=== PATIENT | male | born 1935 | race Caucasian/White ===

== ENCOUNTER 2016-11-30 00:14 | Inpatient (IN) | payer MEDICARE, OTHER ==
[~2016-11-30] VITALS: Ht 170.2 cm; Wt 57.5 kg
[2016-11-30] VITALS (25 sets, daily range): BP systolic 100–115; BP diastolic 46–63; PULSE 75–95; RESP 16–19; TEMP 98.4; Ht 170.2 cm; Wt 57.5 kg
--- NOTE | 2016-11-30 00:30 | ERA ---
ER Documentation Chief Complaint Date/Time DATE: 11/30/16 TIME: 00:30 Chief Complaint Palpitation and low hemoglobin HPI The patient is 81-year-old male, presenting to the ER because of palpitation at 7 PM. I obtained a history from the daughter because he is unable to provide any history. He also had low hemoglobin from the blood drawn today. The history is obtained from [facility], [facility] notes, patient and daughter Past medical history: Chronic respiratory failure on ventilator, hypertension, COPD, chronic kidney disease, BPH, CAD, dementia, dysphagia, anemia, history of CVA, GERD past surgical history: Tracheostomy, G-tube ROS All systems reviewed and are negative except as per history of present illness. Allergies Allergies: Coded Allergies: No Known Allergy (Unverified , 11/30/16) Physical Exam Vitals Vital Signs Date Time Temp Pulse Resp B/P Pulse Ox O2 Delivery O2 Flow Rate FiO2 11/30/16 03:42 136 22 100 40 11/30/16 03:30 127 19 104/42 100 Mechanical Ventilator T Tube Trach Collar 11/30/16 03:00 122 19 108/46 100 Mechanical Ventilator T Tube Trach Collar 11/30/16 02:30 121 20 103/43 100 Mechanical Ventilator T Tube Trach Collar 11/30/16 02:00 130 24 122/65 100 Mechanical Ventilator T Tube Trach Collar 11/30/16 01:17 160 20 100 100 11/30/16 01:00 165 23 137/74 100 Mechanical Ventilator T Tube Trach Collar 11/30/16 00:38 99.1 163 18 94/51 100 Physical Exam Const: No acute distress. On ventilator Head: Atraumatic. Eyes: Normal Conjunctiva. ENT: Normal External Ears, Nose and Mouth. Neck: Full range of motion. No meningismus. Resp: Clear to auscultation bilaterally. Cardio: Regular but tachycardic Abd: Soft, non distended, normal bowel sounds, non tender. Skin: No petechiae or rashes. Back: No midline or flank tenderness. Ext: No cyanosis, or edema. Neur: Unable to perform due to his condition Psych: Unable to perform due to his condition Result Diagram: 11/30/16 0045 11/30/16 0045 Results 24 hrs Laboratory Tests Test 11/30/16 00:45 11/30/16 01:45 11/30/16 02:13 11/30/16 02:35 White Blood Count 20.010^3/ul Red Blood Count 2.2710^6/ul Hemoglobin 6.3g/dl Hematocrit 20.4% Mean Corpuscular Volume 89.9fl Mean Corpuscular Hemoglobin 27.8pg Mean Corpuscular Hemoglobin Concent 30.9g/dl Red Cell Distribution Width 15.8% Platelet Count 39688^3/UL Mean Platelet Volume 10.0fl Neutrophils % 89.6% Lymphocytes % 4.9% Monocytes % 3.6% Eosinophils % 1.0% Basophils % 0.1% Nucleated Red Blood Cells % 0.0/100WBC Neutrophils # 17.910^3/ul Lymphocytes # 1.010^3/ul Monocytes # 0.710^3/ul Eosinophils # 0.210^3/ul Basophils # 0.010^3/ul Nucleated Red Blood Cells # 0.010^3/ul Prothrombin Time 14.5Sec Prothrombin Time Ratio 1.1 INR International Normalized Ratio 1.13 Activated Partial Thromboplast Time 31.8Sec Sodium Level 124mmol/L Potassium Level 5.1mmol/L Chloride Level 83mmol/L Carbon Dioxide Level 36mmol/L Anion Gap 10 Blood Urea Nitrogen 58mg/dl Creatinine 0.56mg/dl Glucose Level 121mg/dl Calcium Level 9.1mg/dl Magnesium Level 1.7mg/dl Total Bilirubin 0.0mg/dl Direct Bilirubin 0.00mg/dl Indirect Bilirubin 0.0mg/dl Aspartate Amino Transf (AST/SGOT) 90IU/L Alanine Aminotransferase (ALT/SGPT) 70IU/L Alkaline Phosphatase 237IU/L Troponin I 0.169ng/ml Total Protein 7.3g/dl Albumin 2.5g/dl Globulin 4.80g/dl Albumin/Globulin Ratio 0.52 Blood Gas Specimen Source Blood arterial Arterial Blood Date Drawn 11/30/2016 1:50:37 AM Arterial Blood pH (Temp corrected) 7.474 Arterial Blood pCO2 (Temp correct) 49.7mmhg Arterial Blood pO2 (Temp corrected) 300.7mmHG Arterial Blood HCO3 35.7mmol/L Arterial Blood Base Excess 11.0mmol/L Arterial Blood Oxygen Saturation 99.8mmHG Russell Test ACCEPTAB Arterial Blood Gas Puncture Site Left Radial Arterial Blood Carboxyhemoglobin 0.5% Arterial Blood Methemoglobin 0.6% Blood Gas A-a O2 Differential 362.6mmHg Oxyhemoglobin Percent 98.7% Total Hemoglobin 6.5g/dl Blood Gas Temperature 37.0C Blood Gas Respiration Rate 18.0 Blood Gas Actual Respiration Rate 20 Blood Gas Modality VENT - AC FiO2 100.0% Blood Gas Tidal Volume 550.0mL Blood Gas Low PEEP Setting 5.0cmH2O Blood Gas Critical Value Read Back ALAINA COON Blood Gas Notified Whom LW Blood Gas Notified Time 11/30/2016 1:55:41 AM Lactic Acid Level 1.8mmol/L Urine Color LT. YELLOW Urine Clarity CLEAR Urine pH 7.0 Bedside Urine pH (LAB) 7.0 Urine Specific [place] <=1.005 Bedside Urine Protein (LAB) 1+ Bedside Urine Glucose (UA) Negative Urine Ketones NEGATIVE Bedside Urine Ketones (LAB) Negative Bedside Urine Blood 1+ Urine Nitrite NEGATIVE Bedside Urine Nitrite (LAB) Negative Urine Bilirubin NEGATIVE Urine Urobilinogen 0.2 E.U./dL Urine Leukocyte Esterase NEGATIVE Bedside Urine Leukocyte Esterase (L Negative Urine Microscopic RBC 2-5/HPF Urine Microscopic WBC 2-5/HPF Urine Bacteria RARE Urine Hemoglobin 1+ Urine Glucose NEGATIVE% Urine Total Protein TRACE Current Medications Medications (Trade) Dose Ordered Sig/[place] Route PRN Reason Start Time Stop Time Status Last Admin Dose Admin Adenosine (Adenosine) 6 ml @ ud STK-MED ONCE .ROUTE 11/30/16 01:28 11/30/16 01:29 DC Diltiazem HCl 25 mg 25 mg STK-MED ONCE .ROUTE 11/30/16 01:35 11/30/16 01:36 DC Sodium Chloride (NS) 1,000 ml @ 1,000 mls/hr Q1H ONCE IV 11/30/16 02:00 11/30/16 02:59 DC Diltiazem HCl 25 mg 25 mg STK-MED ONCE .ROUTE 11/30/16 02:14 11/30/16 02:15 DC Diltiazem HCl 125 ml @ 5 mls/hr TITRATE IV 11/30/16 03:30 11/30/16 03:12 Vancomycin HCl 250 ml @ 125 mls/hr ONCE IVPB 11/30/16 03:30 11/30/16 05:29 11/30/16 04:01 Piperacillin Sod/ Tazobactam Sod (Zosyn 2.25gm/ 50ml (Pmx)) 50 ml @ 100 mls/hr ONCE ONCE IVPB 11/30/16 03:30 11/30/16 03:59 DC 11/30/16 03:38 Procedures/MDM [place] [id number] Radiology Main Line: [phone] DIAGNOSTIC IMAGING REPORT Patient: OBDULIO FIELDS : 1935 Age: 81 Sex: M MR #: [id number] DOS: 11/30/16 0117 Ordering MD: PASQUALE JAVIER MD Location: E/R Room/Bed: PROCEDURE: XR Chest. CLINICAL INDICATION: Possible Sepsis TECHNIQUE: Portable single view of the chest COMPARISON: None. FINDINGS: Endotracheal tube appears in good position. Cardiomegaly and aortic calcification. Pulmonary vascular congestion and coarse increased interstitial lung markings with possible bronchiectasis bilaterally. Large areas of alveolar opacity are seen in the right mid to lower lung zone with probable bilateral pleural effusions. Degenerative change of the spine. Minimal patchy opacities are seen peripherally in the left lung. IMPRESSION: Right greater than left lung infiltrates which could be due to pneumonia. Small effusions. Tracheostomy tube. Cardiomegaly and aortic calcification. Question underlying interstitial lung disease. RPTAT: HLBE Physician Dee Date Time Electronically viewed and signed by Renay Bailey Physician on 11/30/2016 03 :05 LE/ CC: PASQUALE JAVIER MD EKG: Read by emergency physician at 1:22 AM Rate/Rhythm: SVT 170 beats/min QRS, ST, T-waves: No ST elevation, no T inversion, nonspecific ST abnormality Impression: Abnormal EKG EKG: Read by emergency physician at 3:47 AM Rate/Rhythm: Atrial flutter with variable AV block beats/min QRS, ST, T-waves: No ST elevation, no T inversion, RWA, nonspecific ST abnormality Impression: Abnormal EKG MEDICAL MAKING DECISION: The patient is a 81-year-old male, presenting with new onset acute SVT, new onset acute atrial flutter, acute pneumonia, acute GI bleed , acute elevated troponin of unclear significance. He was treated with Cherry catheter, 1 L normal saline and 2 units of packed red blood cell for acute GI bleed. He was treated for acute SVT with adenosine 6 mg IV, and 12 mg IV with minimal response. He then went into atrial flutter with RVR; was then treated with Cardizem 20 mg IV 2 with some response and started on Cardizem drip with good response. He was treated with vancomycin IV , Zosyn IV for acute pneumonia, suspected aspiration. Aspirin was not given due to acute GI bleed The differential diagnoses for acute GI bleed considered include but are not limited to gastritis, peptic ulcer disease, esophageal varices, Sarah-Mcdaniels tear, carcinoma, polyp, hemorrhoid, fissure, diverticulosis, angiodysplasia. The differential diagnoses for acute elevated troponin considered include but are not limited to acute coronary syndrome, acute myocardial infarction, pericarditis, pulmonary embolism, aortic dissection, pneumonia, pleural effusion , pneumothorax, GERD, chest wall pain. Critical Care: Time: 75 minutes excluding all billable procedures. Treatments/Evaluations: Close monitoring and treatment of unstable vital signs, cardiorespiratory, and neurologic status, while maintaining tight balance of fluid, respiratory, and cardiac interventions. Departure Diagnosis: Primary Impression: Atrial flutter with rapid ventricular response Additional Impressions: SVT (supraventricular tachycardia) Pneumonia GI bleed Elevated troponin Hyponatremia Condition: Critical Comments I discussed the findings with the patient. I discussed the patient with his physician who was made aware of the lab, the treatment, the patient condition. The patient is admitted to ICU at 4 AM PASQUALE JAVIER MD Nov 30, 2016 00:30
[2016-11-30] MEDS ORDERED: ADENOSINE 6 ML ONE (01:28)
[2016-11-30 01:30] LABS: ADD SCAN DIFF NO
[2016-11-30 01:33] LABS: ABNORMAL IP MESSAGE 1; BASOPHILS % 0.1 % (0.0-2.0); EOSINOPHILS # 0.2 10^3/ul (0.0-0.5); HEMATOCRIT 20.4 % (42.0-52.0); LYMPHOCYTES % 4.9 % (15.0-51.0); MEAN CORPUSCULAR HEMOGLOBIN 27.8 pg (29.0-33.0); MEAN CORPUSCULAR HGB CONC 30.9 g/dl (32.0-37.0); MEAN CORPUSCULAR VOLUME 89.9 fl (82.0-101.0); MONOCYTE # 0.7 10^3/ul (0.3-0.9); MONOCYTES % 3.6 % (0.0-11.0); NEUTROPHIL # 17.9 10^3/ul (1.6-7.5); NEUTROPHILS % 89.6 % (39.0-77.0); PLATELET COUNT 364 10^3/UL (140-415); RED BLOOD COUNT 2.27 10^6/ul (4.70-6.10); RED CELL DISTRIBUTION WIDTH 15.8 % (11.5-14.5)
[2016-11-30] MEDS ORDERED: DILTIAZEM 25 MG INJ ONE ×2 (01:35→02:14)
[2016-11-30 01:37] LABS: INR 1.13; PROTIME 14.5 Sec (12.2-14.2); PT RATIO 1.1
[2016-11-30 01:38] LABS: PARTIAL THROMBOPLASTIN TIME 31.8 Sec (25.0-35.0)
[2016-11-30 01:41] LABS: POTASSIUM 5.1 mmol/L (3.5-5.1)
[2016-11-30 01:42] LABS: ALBUMIN 2.5 g/dl (3.3-4.9); ALBUMIN/GLOBULIN RATIO 0.52; CALCIUM 9.1 mg/dl (8.4-10.2); CREATININE 0.56 mg/dl (0.61-1.24); TOTAL PROTEIN 7.3 g/dl (6.1-8.1)
[2016-11-30 01:55] LABS: AADO2 Arterial 362.6 mmHg (7.0-24.0); Allen Test ACCEPTAB; Arterial COHb 0.5 % (0.0-3.0); Arterial Fraction of Oxyhgb 98.7 % (93.0-99.0); Arterial HCO3 35.7 mmol/L (22.0-26.0); Arterial MetHb 0.6 % (0.0-1.5); Arterial Total Hemglobin 6.5 g/dl (12.0-18.0); MODE VENT - AC
[2016-11-30 02:00] LABS: TROPONIN-I 0.169 ng/ml (0.00-0.12)
[2016-11-30] MEDS ORDERED: SOD CHLORIDE 0.9% 1,000 ML IV ONE (02:00)
[2016-11-30 02:01] LABS: HEMOGLOBIN 6.3 g/dl (14.0-18.0)
[2016-11-30 02:36] LABS: URINE BLOOD (Dip) POC 1+ (NEGATIVE)
[2016-11-30 02:58] LABS: ADD UMIC YES; URINE BILIRUBIN (Dip) NEGATIVE (NEGATIVE); URINE BLOOD (Dip) 1+ (NEGATIVE); URINE COLOR LT. YELLOW (YELLOW); URINE GLUCOSE (Dip) NEGATIVE (NEGATIVE); URINE KETONES (Dip) NEGATIVE (NEGATIVE); URINE LEUKOCYTE ESTERASE (Dip) NEGATIVE (NEGATIVE); URINE NITRITE (Dip) NEGATIVE (NEGATIVE); URINE TOTAL PROTEIN (Dip) TRACE (NEGATIVE); URINE UROBILINOGEN (Dip) 0.2 E.U./dL (0.1-1.0)
--- NOTE | 2016-11-30 03:05 | RADRPT ---
PROCEDURE: XR Chest. CLINICAL INDICATION: Possible Sepsis TECHNIQUE: Portable single view of the chest COMPARISON: None. FINDINGS: Endotracheal tube appears in good position. Cardiomegaly and aortic calcification. Pulmonary vascu lar congestion and coarse increased interstitial lung markings with possible bronchiectasis bilatera lly. Large areas of alveolar opacity are seen in the right mid to lower lung zone with probable teo ateral pleural effusions. Degenerative change of the spine. Minimal patchy opacities are seen aminata pherally in the left lung. IMPRESSION: Right greater than left lung infiltrates which could be due to pneumonia. Small effusions. Tracheo stomy tube. Cardiomegaly and aortic calcification. Question underlying interstitial lung disease. RPTAT: HLBE Renay Bailey Physician Date Time Electronically viewed and signed by Renay Bailey Physician on 11/30/2016 03:05 KWASI/
[2016-11-30 03:08] LABS: BACTERIA,URINE RARE
[2016-11-30] MEDS: DILTIAZEM-D5W 125MG/125ML DRIP 125 ML IV SCH ×2 (03:12→19:57)
[2016-11-30] MEDS ORDERED: VANCOMYCIN 1 GM (PMX) 250 ML IVPB SCH ×2 (03:30→15:00)
[2016-11-30] MEDS ORDERED: PIPER-TAZO 2.25 GM (PMX) 50 ML IVPB ONE (03:30)
[2016-11-30] MEDS ORDERED: PIPE3.374 IVPB (04:58)
[2016-11-30] MEDS ORDERED: GLUCOSE GEL 15 GRAM TUBE PO PRN ×2 (05:00)
[2016-11-30] MEDS ORDERED: DEXTROSE 50% 50 ML SYRINGE IV PRN ×2 (05:00)
[2016-11-30] MEDS ORDERED: NACL 0.9% 3 ML SYG IV SCH (05:00)
[2016-11-30] MEDS ORDERED: GLUCOSE GEL 15 GRAM TUBE BUCCAL PRN (05:00)
[2016-11-30] MEDS ORDERED: GLUCAGON 1 MG INJ IM PRN (05:00)
--- NOTE | 2016-11-30 05:14 | HP ---
Date/Time of Note Date/Time of Note DATE: 11/30/16 TIME: 04:58 Assessment/Plan VTE Prophylaxis VTE Prophylaxis Intervention: contraindicated VTE Contraindication Reason: bleeding Lines/Catheters IV [facility] Saline Lock Urinary Cath still in place: No Assessment/Plan Assessment/Plan [facility] 1. 81yo man with chronic vent-dependent respiratory failure, with acute change in status characterized by severe anemia, tachycardia, nuchal rigidity and bilateral pneumonia on exam and chest x-ray. * Admit to ICU inpatient * Continue Vancomycin per Pharmacy Protocol * Continue Zosyn * Reaffirmed with his daughter that he is DNR 2. Possible meningitis. Elevated WBC, nuchal rigidity. No previous history of meningitis. * Antibiotics as above. * Blood cultures pending. 3. Bilateral pneumonia, with dense mid-field crackles right posterior middle lobe 4. GI bleeding, with drop in Hct * Planning transfusion of 2u PRBC 5. Elevated troponins, with known coronary disease. Tachycardia, likely secondary to severe anemia and demand ischemia. * Obtain old records * Control heart rate with Cardizem drip 6. Diffuse mild abdominal tenderness, without rebound or guarding. * CT abdomen when more stable. 7. Prophylaxis * Compression stockings for now * IV famotidine 8. Disposition: back to facility ([facility]) once his acute illness is treated. Domonique Valdez MD PhD [phone] HPI/ROS Admit Date/Time Admit Date/Time 30 November 2016/0400 Hx of Present Illness Mr. Ruggiero is an 81yo patient transferred this morning from [facility] with fever, increased difficulty breathing, and altered level of consciousness. I spoke at bedside with his daughter Cinthia, who is a NICU nurse at [employer]. He has a history of vent-dependent COPD-related respiratory failure with tracheostomy and artificial ventilation. He appeared normal yesterday morning to his daughter when she visited him, breathing comfortably, recognizing her, and mouthing words. But by last night the facility called to say that his heart rate was elevated and that he had a fever with increased dyspnea. ROS Not responsive. PMH/Family/Social Past Medical History Medical History: coronary artery disease, diabetes, high cholesterol, hypertension Family History Significant Family History: no pertinent family hx Social History Grew up and in the [facility]. 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 A younger daughter still lives in the [facility]. Stopped smoking 25 years ago, before moving to the [place] Cared for along with his by their daughter Cinthia, who is a nurse. Alcohol Use: none Smoking Status: Former smoker Exam/Review of Systems Vital Signs Vitals Vital Signs Date Time Temp Pulse Resp B/P Pulse Ox O2 Delivery O2 Flow Rate FiO2 11/30/16 03:42 136 22 100 40 11/30/16 03:30 104/42 Mechanical Ventilator T Tube Trach Collar 11/30/16 00:38 99.1 Intake and Output 11/29/16 11/29/16 11/30/16 15:00 23:00 07:00 Intake Total 50 ml Balance 50 ml Exam Constitutional: frail, non-verbal Head: atraumatic, normocephalic Eyes: PERRL, nl conjunctiva ENMT: intubated, mucosa pink and moist Neck: nuchal rigidity Respiratory: crackles/rales, diminished breath sounds Cardiovascular: irregular rhythm Gastrointestinal: bowel sounds, nl liver, spleen, soft, tender (diffusely, with grimacing), No ascites, No distended, No firm, No hepatomegaly, No mass, No non-tender, No rebound or guarding, No splenomegaly, No surgical scars Musculoskeletal: other (severe muscle atrophy upper and lower extremities. No edema.) Extremities: normal pulses, No calf tenderness, No clubbing, No cyanosis, No edema, No palpable cord, No pitting pedal edema, No tenderness Neurological: DTR's symmetric, confused, lethargic, reflexes (equivocal Babins[place]is. Trace patellar.), unresponsive Skin: nl turgor, No diaphoresis, No ecchymosis, No laceration, No puncture, No rash or lesions Lymph: nl lymph nodes Labs Result Diagram: 11/30/165 11/30/165 Medications Medications Current Medications Diltiazem HCl 125 ml @ 5 mls/hr TITRATE IV Last administered on 11/30/16 03:12 ; Admin Dose 5 MLS/HR; Start 11/30/16 at 03:30 Vancomycin HCl (Vancocin) 250 ml @ 125 mls/hr ONCE IVPB Last administered on 04:01; Admin Dose 125 MLS/HR; Start 11/30/16 at 03:30; Stop 11/30/16 at 05:29 Acetaminophen (Tylenol Tab) 650 mg Q6H PRN PEG PAIN LEVEL 1-3 OR FEVER; Start 11/30/16 at 05:00 Morphine Sulfate (morphine) 2 mg Q4H PRN IV PAIN LEVEL 7-10; Start 11/30/16 at 05:00 Famotidine (Pepcid Iv) 20 mg Q12 IV ; Start 11/30/16 at 09:00; Status UNV Miscellaneous Information (* Miscellaneous Pharmacy Order) HYPOGLYCEMIA PROTOCOL w... ONCE ONCE XX ; Start 11/30/16 at 05:00; Stop 11/30/16 at 05:01; Status UNV Miscellaneous Information (* Miscellaneous Pharmacy Order) Discontinue Glyburide , Glipizide,... ONCE ONCE XX ; Start 11/30/16 at 05:00; Stop 11/30/16 at 05:01 ; Status UNV Miscellaneous Information (* Miscellaneous Pharmacy Order) Discontinue all previ... ONCE ONCE XX ; Start 11/30/16 at 05:00; Stop 11/30/16 at 05:01; Status UNV NEGRITO VALDEZ M.D. Nov 30, 2016 05:12
[2016-11-30] MEDS: ACETAMINOPHEN 325 MG TAB PEG PRN (05:28)
[2016-11-30] MEDS ORDERED: ACETAMINOPHEN 650 MG SUPP PR ONE (05:30)
[2016-11-30] MEDS ORDERED: SOD CHLORIDE 0.9% 250 ML IV ONE (07:30)
[2016-11-30] MEDS ORDERED: VANCOMYCIN IV PER PHARMACY XX SCH (08:00)
[2016-11-30] MEDS ORDERED: FAMOTIDINE 20 MG INJ IV SCH (09:00)
[2016-11-30 09:21] LABS: CK-MB 3.61 ng/ml (0.0-2.4); TROPONIN-I 0.429 ng/ml (0.00-0.12)
[2016-11-30] MEDS ORDERED: LIDOCAINE 1% (MPF) 5 ML VIAL SC ONE (10:00)
--- NOTE | 2016-11-30 11:00 | RADRPT ---
PROCEDURE: Ultrasound proximal left upper extremity for PICC placement CLINICAL INDICATION: PICC placement TECHNIQUE: Sonographic evaluation of the proximal left upper extremity vessels was performed utili zing a high-frequency linear transducer. COMPARISON: None available FINDINGS: Limited evaluation of the proximal left upper extremity for vascular access for PICC placement. Francesca ssly, no abnormality is seen. IMPRESSION: Unremarkable limited proximal left upper extremity ultrasound for PICC placement. RPTAT: QQ .Marlon Kaba MD, MD Date Time Electronically viewed and signed by .Marlon Kaba MD, MD on 11/30/2016 10:59 .A/
--- NOTE | 2016-11-30 11:06 | RADRPT ---
PROCEDURE: XR Chest. CLINICAL INDICATION: PICC placement TECHNIQUE: Portable AP chest x-ray. COMPARISON: 11/30/2016 FINDINGS: There is interval placement of a left PICC. The tip is not well seen secondary to overlapping EKG l ead wires. Otherwise, there is no significant interval change. Endotracheal tube appears in good p osition. Cardiomegaly and aortic calcification. Pulmonary vascular congestion and coarse increased i nterstitial lung markings with possible bronchiectasis bilaterally. Large areas of alveolar opacity are seen in the right mid to lower lung zone with probable bilateral pleural effusions. Degenerative change of the spine. Minimal patchy opacities are seen peripherally in the left lung. IMPRESSION: 1. Interval placement of a left PICC with the tip not well seen secondary to overlying ECG wires. Recommend repeat examination after removal of the ECG leads. 2. Otherwise, no significant interval change. Persistent right greater than left lung infiltrates which could be due to pneumonia and small effusions. Question underlying interstitial lung disease. RPTAT: JJ .Marlon Kaba MD, MD Date Time Electronically viewed and signed by .Marlon Kaba MD, on 11/30/2016 11:06 .A/
--- NOTE | 2016-11-30 11:08 | RADRPT ---
PROCEDURE: XR Chest. CLINICAL INDICATION: PICC placement TECHNIQUE: Portable AP chest x-ray. COMPARISON: 11/30/2016 FINDINGS: There is placement of a left PICC with the tip at the cavoatrial junction. Otherwise, there is no si gnificant interval change. Endotracheal tube appears in good position. Cardiomegaly and aortic calc ification. Pulmonary vascular congestion and coarse increased interstitial lung markings with possib le bronchiectasis bilaterally. Large areas of alveolar opacity are seen in the right mid to lower sebastien ng zone with probable bilateral pleural effusions. Degenerative change of the spine. Minimal patchy opacities are seen peripherally in the left lung. IMPRESSION: 1. Interval placement of a left PICC with the tip at the cavoatrial junction. 2. Otherwise, no significant interval change. Persistent right greater than left lung infiltrates which could be due to pneumonia and small effusions. Question underlying interstitial lung disease. RPTAT: JJ .Marlon Kaba MD, MD Date Time Electronically viewed and signed by .Marlon Kaba MD, on 11/30/2016 11:08 .A/
[2016-11-30] MEDS ORDERED: LACT1CAP57 GTB (11:33)
[2016-11-30] MEDS ORDERED: ALBU2.5V3 NEB (11:35)
[2016-11-30] MEDS ORDERED: DONE5TAB46 GTB (11:36)
[2016-11-30] MEDS ORDERED: LORA0.5T GTB (11:37)
[2016-11-30] MEDS ORDERED: CHLO473M4 MM (11:38)
[2016-11-30] MEDS ORDERED: DOXA1TAB GTB (11:39)
[2016-11-30] MEDS ORDERED: BISA-57 PO (11:48)
[2016-11-30] MEDS ORDERED: FERR220S13 GTB (11:48)
[2016-11-30] MEDS ORDERED: FOLI-49 GTB (11:49)
[2016-11-30] MEDS ORDERED: NA P230E RC (11:49)
[2016-11-30] MEDS ORDERED: ENOX30DI10 SQ (11:50)
[2016-11-30] MEDS ORDERED: MAGN400O4 PO (11:51)
[2016-11-30] MEDS ORDERED: MORP10DI10 SL (11:52)
[2016-11-30] MEDS ORDERED: MULTI PO (11:52)
[2016-11-30] MEDS ORDERED: MULTI GTB (11:53)
[2016-11-30] MEDS ORDERED: CALC-277 GTB (12:04)
[2016-11-30] MEDS ORDERED: BUDE0.5A INHALATION (12:06)
[2016-11-30] MEDS ORDERED: OMEP20CA16 GTB (12:06)
[2016-11-30] MEDS ORDERED: GUAI-637 GTB (12:07)
[2016-11-30] MEDS ORDERED: SENN-53 PO (12:07)
[2016-11-30] MEDS ORDERED: TRAM-40 GTB (12:09)
[2016-11-30] MEDS ORDERED: ACET-2047 GTB (12:09)
[2016-11-30] MEDS ORDERED: CRAN3875 GTB (12:10)
[2016-11-30] MEDS ORDERED: CYAN500T46 GTB (12:11)
[2016-11-30] MEDS ORDERED: CHOL100062 GTB (12:13)
[2016-11-30] MEDS ORDERED: ASCO500S2 GTB (12:13)
[2016-11-30] MEDS: PIPER-TAZO 3.375 GM IV (PMX) 100 ML IVPB SCH ×3 (12:38→22:55)
[2016-11-30] MEDS: FAMOTIDINE 20 MG INJ IV SCH (12:38)
[2016-11-30 14:29] LABS: ADD SCAN DIFF NO
[2016-11-30 14:49] LABS: BASOPHILS % 0.2 % (0.0-2.0); EOSINOPHILS # 0.1 10^3/ul (0.0-0.5); EOSINOPHILS % 0.3 % (0.0-7.0); HEMATOCRIT 23.3 % (42.0-52.0); HEMOGLOBIN 7.8 g/dl (14.0-18.0); LYMPHOCYTES # 0.9 10^3/ul (0.8-2.9); LYMPHOCYTES % 4.4 % (15.0-51.0); MEAN CORPUSCULAR HEMOGLOBIN 28.6 pg (29.0-33.0); MEAN CORPUSCULAR HGB CONC 33.5 g/dl (32.0-37.0); MEAN CORPUSCULAR VOLUME 85.3 fl (82.0-101.0); MEAN PLATELET VOLUME 9.4 fl (7.4-10.4); MONOCYTE # 0.6 10^3/ul (0.3-0.9); MONOCYTES % 2.8 % (0.0-11.0); NEUTROPHIL # 18.9 10^3/ul (1.6-7.5); NEUTROPHILS % 91.2 % (39.0-77.0); PLATELET COUNT 311 10^3/UL (140-415); RED BLOOD COUNT 2.73 10^6/ul (4.70-6.10); RED CELL DISTRIBUTION WIDTH 14.6 % (11.5-14.5); WHITE BLOOD COUNT 20.7 10^3/ul (4.8-10.8)
[2016-11-30 15:03] LABS: CK-MB 4.59 ng/ml (0.0-2.4); TROPONIN-I 0.449 ng/ml (0.00-0.12)
[2016-11-30] MEDS ORDERED: VANCOMYCIN 750 MG in SOD CHLORIDE 0.9% 150 ML IVPB SCH (17:00)
[2016-11-30 21:55] LABS: ADD SCAN DIFF NO
[2016-11-30 21:57] LABS: BASOPHILS % 0.2 % (0.0-2.0); EOSINOPHILS % 0.2 % (0.0-7.0); HEMATOCRIT 23.9 % (42.0-52.0); LYMPHOCYTES # 0.7 10^3/ul (0.8-2.9); LYMPHOCYTES % 3.6 % (15.0-51.0); MEAN CORPUSCULAR HEMOGLOBIN 28.4 pg (29.0-33.0); MEAN CORPUSCULAR HGB CONC 33.5 g/dl (32.0-37.0); MEAN CORPUSCULAR VOLUME 84.8 fl (82.0-101.0); MEAN PLATELET VOLUME 9.1 fl (7.4-10.4); MONOCYTE # 0.6 10^3/ul (0.3-0.9); MONOCYTES % 3.1 % (0.0-11.0); NEUTROPHIL # 18.4 10^3/ul (1.6-7.5); NEUTROPHILS % 91.6 % (39.0-77.0); PLATELET COUNT 306 10^3/UL (140-415); RED BLOOD COUNT 2.82 10^6/ul (4.70-6.10); RED CELL DISTRIBUTION WIDTH 14.5 % (11.5-14.5); WHITE BLOOD COUNT 20.1 10^3/ul (4.8-10.8)
[2016-12-01] VITALS (53 sets, daily range): BP systolic 103–142; BP diastolic 47–79; PULSE 74–101; RESP 16–24
[2016-12-01] MEDS: VANCOMYCIN 1 GM in NS 250 ML IVPB SCH (04:41)
[2016-12-01 05:38] LABS: ADD SCAN DIFF NO
[2016-12-01 05:52] LABS: ABNORMAL IP MESSAGE 1; BASOPHILS % 0.2 % (0.0-2.0); EOSINOPHILS % 0.2 % (0.0-7.0); HEMATOCRIT 38.7 % (42.0-52.0); HEMOGLOBIN 12.8 g/dl (14.0-18.0); LYMPHOCYTES # 0.6 10^3/ul (0.8-2.9); LYMPHOCYTES % 4.2 % (15.0-51.0); MEAN CORPUSCULAR HEMOGLOBIN 27.9 pg (29.0-33.0); MEAN CORPUSCULAR HGB CONC 33.1 g/dl (32.0-37.0); MEAN CORPUSCULAR VOLUME 84.3 fl (82.0-101.0); MEAN PLATELET VOLUME 9.4 fl (7.4-10.4); MONOCYTE # 0.4 10^3/ul (0.3-0.9); MONOCYTES % 2.9 % (0.0-11.0); NEUTROPHIL # 11.9 10^3/ul (1.6-7.5); NEUTROPHILS % 91.4 % (39.0-77.0); PLATELET COUNT 239 10^3/UL (140-415); RED BLOOD COUNT 4.59 10^6/ul (4.70-6.10); RED CELL DISTRIBUTION WIDTH 15.1 % (11.5-14.5); WHITE BLOOD COUNT 13.1 10^3/ul (4.8-10.8)
[2016-12-01 05:57] LABS: CREATININE 0.64 mg/dl (0.61-1.24)
[2016-12-01 05:58] LABS: CALCIUM 8.9 mg/dl (8.4-10.2)
[2016-12-01 06:11] LABS: POTASSIUM 2.8 mmol/L (3.5-5.1)
[2016-12-01] MEDS: PIPER-TAZO 3.375 GM IV (PMX) 100 ML IVPB SCH ×3 (06:15→22:56)
[2016-12-01] MEDS: POTASSIUM CHLORIDE 50 ML IVPB PRN ×3 (06:54→21:09)
--- NOTE | 2016-12-01 07:47 | RADRPT ---
PROCEDURE: XR Chest. CLINICAL INDICATION: SOB TECHNIQUE: Portable single view of the chest COMPARISON: 11/30/2016 FINDINGS: Tracheostomy tube and left PICC line again seen. Left lower lobe infiltrate has increased with obsc uration of the left hemidiaphragm. There could be a small underlying effusion. Lateral right mid l bianca infiltrate appears decreased but infiltrate at the right base with probable effusion is similar to prior. Degenerative change of the spine. Background of increased interstitial markings and pulm onary vascular congestion. IMPRESSION: Increased left lower lobe infiltrate. Probable slight decrease in lateral right lung infiltrate. RPTAT: HLBE Physician Dee Date Time Electronically viewed and signed by Renay Bailey Physician on 12/01/2016 07:47 KWASI/
--- NOTE | 2016-12-01 07:48 | RADRPT ---
PROCEDURE: XR Abdomen. CLINICAL INDICATION: Abdominal distension TECHNIQUE: AP abdomen x-ray. COMPARISON: None. FINDINGS: Air is seen in nondistended small bowel and colon. Presumed gastrostomy tube overlies the left uppe r quadrant. No supine evidence of free air. Degenerative change of the spine and probable osteopen ia. Vascular calcification.. IMPRESSION: Nonobstructive bowel gas pattern. RPTAT: HLBE Renay Bailey Physician Date Time Electronically viewed and signed by Renay Bailey Physician on 12/01/2016 07:48 LE/
--- NOTE | 2016-12-01 08:24 | PN ---
Date/Time of Note Date/Time of Note DATE: 12/01/16 TIME: 08:19 Assessment/Plan VTE Prophylaxis VTE Prophylaxis Intervention: SCD's Lines/Catheters IV Catheter Type (from [facility]): PICC Line Central line still needed: Yes (Receiving potassium supplementation; may required pressors) Urinary Cath still in place: Yes (critically ill patient) Reason Cath still needed: other (indicate) (critically ill) Assessment/Plan Assessment/Plan [facility] 1. 81yo man with chronic vent-dependent respiratory failure, with acute change in status characterized by severe anemia, tachycardia, nuchal rigidity and bilateral pneumonia on exam and chest x-ray. Portable CXR last night is improved, with decreased right lower lobe infiltrate. He is overall dramatically improved this morning: responsive, comfortable-appearing, oxygenating well, with good lung exam. * Continue Vancomycin per Pharmacy Protocol * Continue Zosyn * Patient is DNR 2. Possible meningitis. But his elevated WBC is improved today, and he's had complete resolution of the nuchal rigidity and obtundation. No previous history of meningitis. * Antibiotics as above. * Blood cultures pending. 3. Hypokalemia * Replaced with potassium protocol this morning 4. GI bleeding, with drop in Hct that responded well to transfusion of 2u PRBC. No evidence for active bleeding now. 5. Elevated troponins, now plateauing at 0.4, with known coronary disease. Tachycardia, likely secondary to severe anemia and demand ischemia. * Wean from Cardizem drip * Cardiology consult this morning 6. Diffuse mild abdominal tenderness, without rebound or guarding. Bowel gas pattern on KUB overnight. * Continue tube feedings, with target rate of 60cc/hr. 7. Prophylaxis * SCDs * IV famotidine 8. Disposition: back to facility ([facility]) once his acute illness is treated. Domonique Valdez MD PhD [phone] Subjective 24 Hr Interval Summary Free Text/Dictation No visitors at bedside this morning. Smiles easily, and responding to questions , indicating he has some discomfort but not in the chest or abdomen. No nausea. Exam/Review of Systems Vital Signs Vitals Vital Signs Date Time Temp Pulse Resp B/P Pulse Ox O2 Delivery O2 Flow Rate FiO2 12/01/16 06:30 90 18 117/52 12/01/16 06:15 99 12/01/16 05:31 40 4/16/17 03:45 97.8 Mechanical Ventilator Intake and Output 11/30/16 11/30/16 12/01/16 14:59 22:59 06:59 Intake Total 1300 ml 94 ml 404 ml Output Total 1413 ml 326 ml Balance 1300 ml -1319 ml 78 ml Exam Constitutional: frail, mouthing words, smiling, comfortable-appearing Head: atraumatic, normocephalic; PERRL, nl conjunctiva, intubated with trach, mucosa pink and moist. Neck: No nuchal rigidity Respiratory: No crackles/rales, with good expansion of the chest Cardiovascular: Regular rhythm, no murmur. Symmetric pulses. Gastrointestinal: bowel sounds, nl liver, spleen, soft, non-tender. No ascites , but mildly tympanic and distended. Not firm, with no hepatomegaly, rebound or guarding. Musculoskeletal: Severe muscle atrophy upper and lower extremities. No edema. Symmetric pulses. No calf tenderness, No clubbing, No cyanosis, No edema, No palpable cord, No pitting pedal edema, No tenderness Neurological: DTR's symmetric, confused, lethargic, reflexes (equivocal [place]. Trace patellar.), unresponsive Skin: nl turgor, no diaphoresis or ecchymosis. No rash or lesions Lymph: nl lymph nodes Results Result Diagram: 12/01/16 0509 12/01/16 0509 Results 24 hrs Laboratory Tests Test 11/30/16 08:26 11/30/16 14:00 11/30/16 16:17 11/30/16 21:00 Hemoglobin A1c 6.0 H Lactic Acid Level 1.5 Creatine Kinase 33 32 Creatine Kinase Index 10.9 14.3 Creatinine Kinase MB (Mass) 3.61 H 4.59 H Troponin I 0.429 *H 0.449 *H Thyroid Stimulating Hormone (TSH) 1.420 White Blood Count 20.7 H Red Blood Count 2.73 #L Hemoglobin 7.8 #L Hematocrit 23.3 L Mean Corpuscular Volume 85.3 Mean Corpuscular Hemoglobin 28.6 L Mean Corpuscular Hemoglobin Concent 33.5 Red Cell Distribution Width 14.6 H Platelet Count 311 Mean Platelet Volume 9.4 Neutrophils % 91.2 H Lymphocytes % 4.4 L Monocytes % 2.8 Eosinophils % 0.3 Basophils % 0.2 Nucleated Red Blood Cells % 0.0 Neutrophils # 18.9 H Lymphocytes # 0.9 Monocytes # 0.6 Eosinophils # 0.1 Basophils # 0.0 Nucleated Red Blood Cells # 0.0 Bedside Glucose 89 84 Test 11/30/16 21:48 12/01/16 05:09 White Blood Count 20.1 H 13.1 #H Red Blood Count 2.82 L 4.59 #L Hemoglobin 8.0 L 12.8 #L Hematocrit 23.9 L 38.7 #L Mean Corpuscular Volume 84.8 84.3 Mean Corpuscular Hemoglobin 28.4 L 27.9 L Mean Corpuscular Hemoglobin Concent 33.5 33.1 Red Cell Distribution Width 14.5 15.1 H Platelet Count 306 239 # Mean Platelet Volume 9.1 9.4 Neutrophils % 91.6 H 91.4 H Lymphocytes % 3.6 L 4.2 L Monocytes % 3.1 2.9 Eosinophils % 0.2 0.2 Basophils % 0.2 0.2 Nucleated Red Blood Cells % 0.0 0.0 Neutrophils # 18.4 H 11.9 H Lymphocytes # 0.7 L 0.6 L Monocytes # 0.6 0.4 Eosinophils # 0.0 0.0 Basophils # 0.0 0.0 Nucleated Red Blood Cells # 0.0 0.0 Sodium Level 135 Potassium Level 2.8 #*L Chloride Level 94 #L Carbon Dioxide Level 30 Anion Gap 14 Blood Urea Nitrogen 38 #H Creatinine 0.64 Glucose Level 114 Calcium Level 8.9 Medications Medications Current Medications Diltiazem HCl (Cardizem-D5W 125 Mg/125 ml Drip) 125 ml @ 5 mls/hr TITRATE IV Last administered on 11/30/16 19:57; Admin Dose 13 MLS/HR; Start 11/30/16 at 03 :30 Acetaminophen (Tylenol Tab) 650 mg Q6H PRN PEG PAIN LEVEL 1-3 OR FEVER Last administered on 11/30/16 05:28; Admin Dose 650 MG; Start 11/30/16 at 05:00 Morphine Sulfate (morphine) 2 mg Q4H PRN IV PAIN LEVEL 7-10; Start 11/30/16 at 05:00 Miscellaneous Information 1 ea NOTE XX ; Start 11/30/16 at 05:00 Glucose (Glutose) 15 gm Q15M PRN PO DECREASED GLUCOSE; Start 11/30/16 at 05:00 Glucose (Glutose) 22.5 gm Q15M PRN PO DECREASED GLUCOSE; Start 11/30/16 at 05: 00 Dextrose (D50w Syringe) 25 ml Q15M PRN IV DECREASED GLUCOSE; Start 11/30/16 at 05:00 Dextrose (D50w Syringe) 50 ml Q15M PRN IV DECREASED GLUCOSE; Start 11/30/16 at 05:00 Glucagon (Glucagen) 1 mg Q15M PRN IM DECREASED GLUCOSE; Start 11/30/16 at 05:00 Glucose 15 gm 15 gm Q15M PRN BUCCAL DECREASED GLUCOSE; Start 11/30/16 at 05:00 Piperacillin Sod/ Tazobactam Sod 100 ml @ 200 mls/hr Q8 IVPB Last administered on 12/01/16 06:15; Admin Dose 200 MLS/HR; Start 11/30/16 at 08:00 Vancomycin HCl (Vancocin) 250 ml @ 125 mls/hr Q24H IVPB Last administered on 04:41; Admin Dose 125 MLS/HR; Start 12/01/16 at 04:00 Famotidine (Pepcid Iv) 20 mg DAILY IV Last administered on 11/30/16 12:38; Admin Dose 20 MG; Start 11/30/16 at 09:00 NEGRITO VALDEZ M.D. Dec 01, 2016 08:24
[2016-12-01] MEDS: FAMOTIDINE 20 MG INJ IV SCH (09:40)
[2016-12-01] MEDS: DILTIAZEM-D5W 125MG/125ML DRIP 125 ML IV SCH (10:42)
--- NOTE | 2016-12-01 12:01 | CONS ---
Date/Time of Note Date/Time of Note DATE: 12/01/16 TIME: 11:48 Assessment/Plan Assessment/Plan Chief Complaint/Hosp Course Frail vent-dependent 81 year-old man admitted with a severe anemia, dyspnea, and found to have elevated troponin and rapid atrial fibrillation, which at present may actually be a multifocal atrial tachycardia. Problems: Additional Assessment/Plan Rapid atrial fibrillation at present, possibly in multifocal atrial tachycardia at present, clinically improved with correcting anemia and treating respiratory illness Mild elevation of troponin, likely secondary to acute illness, not plaque- rupture event Acute pneumonia Severe acute anemia Chronic respiratory failure, COPD History of coronary disease per chart Recommendations: Turn off diltiazem, will give po and iv metoprolol for heart rate control Echo ordered to assess LVEF given arrhythmia and history of coronary disease 12-lead EKG ordered to better assess rhythm Anticoagulation not indicated due to severe anemia Even if the elevated troponin represented an acute coronary event, aggressive intervention with catheter based therapy is not indicated given patient's overall prognosis Treat underlying illnesses, anemia, pneumonia, which will all help his heart rhythm and rate control Consultation Date/Type/Reason Admit Date/Time 30 November 2016 Date of Consultation: Dec 01, 2016 Reason for Consultation rapid heart rate Referring Provider: NEGRITO PEREZ M.D. Hx of Present Illness Asked to see this patient for rapid heart rate and elevated troponin. Patient nonverbal so history obtained from chart. Patient has chronic respiratory failure on ventilator, hypertension, COPD, chronic kidney disease, BPH, CAD, dementia, dysphagia, anemia, history of CVA, GERD. He has recently been noted to be severely anemic, POLST changed a few days ago to permit patient to be transported to a hospital, though per POLST dated 11/29/16 remains DNR. He was noted to be more short of breath and tachycardic and therefore transported to [facility]. Initial EKG appears to be rapid atrial fibrillation at 170 bpm. Telemetry strips at present demonstrate possible P waves of differing morphologies, representing multifocal atrial tachycardia versus wandering atrial pacemaker rhythm. He appears reasonably comfortable at present. Overnight, heart rate has come down, and he is on a low dose of a diltiazem drip , which I have asked to be discontinued. unable as patient nonverbal Subjective hx not possible: pt non-verbal Past Medical History Medical History: coronary artery disease, diabetes, high cholesterol, hypertension Past Surgical History Past Surgical Hx: other (peg and trach) Family History Significant Family History: no pertinent family hx (unknown and unable to obtain) Social History Alcohol Use: none Smoking Status: Former smoker Exam/Review of Systems Vital Signs Vitals Vital Signs Date Time Temp Pulse Resp B/P Pulse Ox O2 Delivery O2 Flow Rate FiO2 12/01/16 09:42 88 18 100 40 12/01/16 06:30 117/52 12/01/16 03:45 97.8 Mechanical Ventilator Intake and Output 11/30/16 11/30/16 12/01/16 14:59 22:59 06:59 Intake Total 1300 ml 94 ml 404 ml Output Total 1413 ml 326 ml Balance 1300 ml -1319 ml 78 ml Exam Constitutional: alert, frail Psych: anxiety (appears mildly anxious) Head: normocephalic Eyes: nl conjunctiva, nl sclera ENMT: nl external ears & nose Neck: other (tracheostomy in place) Respiratory: congested cough, crackles/rales (coarse sounds throughout) Cardiovascular: irregular rhythm, No murmurs/extra sounds Gastrointestinal: distended, non-tender, No hepatomegaly Extremities: No edema Skin: nl turgor Results Result Diagram: 12/01/16 0509 12/01/16 0509 Results 24 hrs Laboratory Tests Test 11/30/16 14:00 11/30/16 16:17 11/30/16 21:00 11/30/16 21:48 White Blood Count 20.7 H 20.1 H Red Blood Count 2.73 #L 2.82 L Hemoglobin 7.8 #L 8.0 L Hematocrit 23.3 L 23.9 L Mean Corpuscular Volume 85.3 84.8 Mean Corpuscular Hemoglobin 28.6 L 28.4 L Mean Corpuscular Hemoglobin Concent 33.5 33.5 Red Cell Distribution Width 14.6 H 14.5 Platelet Count 311 306 Mean Platelet Volume 9.4 9.1 Neutrophils % 91.2 H 91.6 H Lymphocytes % 4.4 L 3.6 L Monocytes % 2.8 3.1 Eosinophils % 0.3 0.2 Basophils % 0.2 0.2 Nucleated Red Blood Cells % 0.0 0.0 Neutrophils # 18.9 H 18.4 H Lymphocytes # 0.9 0.7 L Monocytes # 0.6 0.6 Eosinophils # 0.1 0.0 Basophils # 0.0 0.0 Nucleated Red Blood Cells # 0.0 0.0 Creatine Kinase 32 Creatine Kinase Index 14.3 Creatinine Kinase MB (Mass) 4.59 H Troponin I 0.449 *H Bedside Glucose 89 84 Test 12/01/16 05:09 White Blood Count 13.1 #H Red Blood Count 4.59 #L Hemoglobin 12.8 #L Hematocrit 38.7 #L Mean Corpuscular Volume 84.3 Mean Corpuscular Hemoglobin 27.9 L Mean Corpuscular Hemoglobin Concent 33.1 Red Cell Distribution Width 15.1 H Platelet Count 239 # Mean Platelet Volume 9.4 Neutrophils % 91.4 H Lymphocytes % 4.2 L Monocytes % 2.9 Eosinophils % 0.2 Basophils % 0.2 Nucleated Red Blood Cells % 0.0 Neutrophils # 11.9 H Lymphocytes # 0.6 L Monocytes # 0.4 Eosinophils # 0.0 Basophils # 0.0 Nucleated Red Blood Cells # 0.0 Sodium Level 135 Potassium Level 2.8 #*L Chloride Level 94 #L Carbon Dioxide Level 30 Anion Gap 14 Blood Urea Nitrogen 38 #H Creatinine 0.64 Glucose Level 114 Calcium Level 8.9 Medications Medications Current Medications Diltiazem HCl (Cardizem-D5W 125 Mg/125 ml Drip) 125 ml @ 5 mls/hr TITRATE IV Last administered on 12/01/16 10:42; Admin Dose 4 MLS/HR; Start 11/30/16 at 03: 30 Acetaminophen (Tylenol Tab) 650 mg Q6H PRN PEG PAIN LEVEL 1-3 OR FEVER Last administered on 11/30/16 05:28; Admin Dose 650 MG; Start 11/30/16 at 05:00 Morphine Sulfate (morphine) 2 mg Q4H PRN IV PAIN LEVEL 7-10; Start 11/30/16 at 05:00 Miscellaneous Information 1 ea NOTE XX ; Start 11/30/16 at 05:00 Glucose (Glutose) 15 gm Q15M PRN PO DECREASED GLUCOSE; Start 11/30/16 at 05:00 Glucose (Glutose) 22.5 gm Q15M PRN PO DECREASED GLUCOSE; Start 11/30/16 at 05: 00 Dextrose (D50w Syringe) 25 ml Q15M PRN IV DECREASED GLUCOSE; Start 11/30/16 at 05:00 Dextrose (D50w Syringe) 50 ml Q15M PRN IV DECREASED GLUCOSE; Start 11/30/16 at 05:00 Glucagon (Glucagen) 1 mg Q15M PRN IM DECREASED GLUCOSE; Start 11/30/16 at 05:00 Glucose 15 gm 15 gm Q15M PRN BUCCAL DECREASED GLUCOSE; Start 11/30/16 at 05:00 Piperacillin Sod/ Tazobactam Sod 100 ml @ 200 mls/hr Q8 IVPB Last administered on 12/01/16 06:15; Admin Dose 200 MLS/HR; Start 11/30/16 at 08:00 Vancomycin HCl (Vancocin) 250 ml @ 125 mls/hr Q24H IVPB Last administered on 04:41; Admin Dose 125 MLS/HR; Start 12/01/16 at 04:00 Famotidine (Pepcid Iv) 20 mg DAILY IV Last administered on 12/01/16 09:40; Admin Dose 20 MG; Start 11/30/16 at 09:00 ALEN PAINTER Dec 01, 2016 12:00
--- NOTE | 2016-12-01 13:03 | CONS ---
Date/Time of Note Date/Time of Note DATE: 12/01/16 TIME: 12:58 Assessment/Plan Assessment/Plan Additional Assessment/Plan Chest x-ray was reviewed from today which is showing extensive infiltrative changes involving the right lower lobe as well as some infiltrative changes in the left lower lobe as well. Current ventilator settings are; AC of 18, tidal volume 550, PEEP of 5, 40% FiO2. Assessment recommendations; 1. Patient admitted with anemia as well as significant bilateral pneumonia and sepsis. However there has been significant improvement in leukocytosis. 2. Status post packed RBC transfusion. 3. History of hypertension, coronary artery disease and diabetes. 4. History of cardiac arrhythmia. Currently in sinus rhythm. 5. Patient may need an EGD and a colonoscopy for evaluation of drop in hematocrit. Continue current treatment. Obtain a follow-up chest x-ray in 48 hours. Resume tube feeding Consultation Date/Type/Reason Admit Date/Time 30 November 2016/0400 Date of Consultation: Dec 01, 2016 Type of Consultation: Pulmonary/critical care Reason for Consultation Pulmonary consultations requested for evaluation of pneumonia, sepsis and chronic respiratory failure. History presenting; patient is a 81-year-old white male who was admitted from the halfway with complaints of being short of breath also CBC was done which showed significant anemia. Upon evaluation chest x-ray was done which is showing extensive right-sided infiltrative changes consistent with clinical diagnosis of pneumonia. By the time I saw the patient the patient is on ventilator via tracheostomy and is completely awake and alert and was trying to talk by lip movements. She was obtained from medical records. Past medical history; 1. Patient with a history of chronic respiratory failure status post tracheostomy. 2. History of abdominal surgery as based upon a paraumbilical scar. 3. Coronary artery disease 4. Hypertension 5. Diabetes. 6. CVA. Medications; were reviewed. Allergies; are none. Next Social history; patient quit smoking 25 years ago. Family history; noncontributory. 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 Review of systems; very limited review of system could be obtained patient denies any shortness of breath, any chest pain, any abdominal pain. General exam; elderly male, on ventilator via tracheostomy, awake alert currently in no distress. Psychological: anxiety (appears mildly anxious) Past Medical History Medical History: coronary artery disease, diabetes, high cholesterol, hypertension Past Surgical History Past Surgical Hx: other (peg and trach) Social History Alcohol Use: none Smoking Status: Former smoker Exam/Review of Systems Vital Signs Vitals Vital Signs Date Time Temp Pulse Resp B/P Pulse Ox O2 Delivery O2 Flow Rate FiO2 12/01/16 09:42 88 18 100 40 12/01/16 06:30 117/52 12/01/16 03:45 97.8 Mechanical Ventilator Intake and Output 11/30/16 11/30/16 12/01/16 15:00 23:00 07:00 Intake Total 1300 ml 132 ml 366 ml Output Total 1446 ml 293 ml Balance 1300 ml -1314 ml 73 ml Exam HEENT exam is; supple neck, no JVD. No lymphadenopathy. Midline trachea. No thyromegaly. Tracheostomy in place with clean insertion site. Patient is edentulous. Pupils are midsize and reactive to light. Chest exam; crackles involving right lower lobe diminished breath sounds rest of the lung demarco. S1-S2 audible, no murmurs. Regular rhythm. Abdomen examination; soft, nondistended. No organomegaly. G-tube in place. There is a well-healed periumbilical scar. Extremity exam is; no peripheral edema. HAZARDOUS MATERIAL TECHNICIAN examination; patient is awake alert right and to talk by lip movements but is unable to move any extremities. Results Result Diagram: 12/01/16 0509 12/01/16 0509 Results 24 hrs Laboratory Tests Test 11/30/16 14:00 11/30/16 16:17 11/30/16 21:00 11/30/16 21:48 White Blood Count 20.7 H 20.1 H Red Blood Count 2.73 #L 2.82 L Hemoglobin 7.8 #L 8.0 L Hematocrit 23.3 L 23.9 L Mean Corpuscular Volume 85.3 84.8 Mean Corpuscular Hemoglobin 28.6 L 28.4 L Mean Corpuscular Hemoglobin Concent 33.5 33.5 Red Cell Distribution Width 14.6 H 14.5 Platelet Count 311 306 Mean Platelet Volume 9.4 9.1 Neutrophils % 91.2 H 91.6 H Lymphocytes % 4.4 L 3.6 L Monocytes % 2.8 3.1 Eosinophils % 0.3 0.2 Basophils % 0.2 0.2 Nucleated Red Blood Cells % 0.0 0.0 Neutrophils # 18.9 H 18.4 H Lymphocytes # 0.9 0.7 L Monocytes # 0.6 0.6 Eosinophils # 0.1 0.0 Basophils # 0.0 0.0 Nucleated Red Blood Cells # 0.0 0.0 Creatine Kinase 32 Creatine Kinase Index 14.3 Creatinine Kinase MB (Mass) 4.59 H Troponin I 0.449 *H Bedside Glucose 89 84 Test 12/01/16 05:09 White Blood Count 13.1 #H Red Blood Count 4.59 #L Hemoglobin 12.8 #L Hematocrit 38.7 #L Mean Corpuscular Volume 84.3 Mean Corpuscular Hemoglobin 27.9 L Mean Corpuscular Hemoglobin Concent 33.1 Red Cell Distribution Width 15.1 H Platelet Count 239 # Mean Platelet Volume 9.4 Neutrophils % 91.4 H Lymphocytes % 4.2 L Monocytes % 2.9 Eosinophils % 0.2 Basophils % 0.2 Nucleated Red Blood Cells % 0.0 Neutrophils # 11.9 H Lymphocytes # 0.6 L Monocytes # 0.4 Eosinophils # 0.0 Basophils # 0.0 Nucleated Red Blood Cells # 0.0 Sodium Level 135 Potassium Level 2.8 #*L Chloride Level 94 #L Carbon Dioxide Level 30 Anion Gap 14 Blood Urea Nitrogen 38 #H Creatinine 0.64 Glucose Level 114 Calcium Level 8.9 Medications Medications Current Medications Acetaminophen (Tylenol Tab) 650 mg Q6H PRN PEG PAIN LEVEL 1-3 OR FEVER Last administered on 11/30/16t 05:28; Admin Dose 650 MG; Start 11/30/16 at 05:00 Morphine Sulfate (morphine) 2 mg Q4H PRN IV PAIN LEVEL 7-10; Start 11/30/16 at 05:00 Miscellaneous Information 1 ea NOTE XX ; Start 11/30/16 at 05:00 Glucose (Glutose) 15 gm Q15M PRN PO DECREASED GLUCOSE; Start 11/30/16 at 05:00 Glucose (Glutose) 22.5 gm Q15M PRN PO DECREASED GLUCOSE; Start 11/30/16 at 05: 00 Dextrose (D50w Syringe) 25 ml Q15M PRN IV DECREASED GLUCOSE; Start 11/30/16 at 05:00 Dextrose (D50w Syringe) 50 ml Q15M PRN IV DECREASED GLUCOSE; Start 11/30/16 at 05:00 Glucagon (Glucagen) 1 mg Q15M PRN IM DECREASED GLUCOSE; Start 11/30/16 at 05:00 Glucose 15 gm 15 gm Q15M PRN BUCCAL DECREASED GLUCOSE; Start 11/30/16 at 05:00 Piperacillin Sod/ Tazobactam Sod 100 ml @ 200 mls/hr Q8 IVPB Last administered on 12/01/16 06:15; Admin Dose 200 MLS/HR; Start 11/30/16 at 08:00 Vancomycin HCl (Vancocin) 250 ml @ 125 mls/hr Q24H IVPB Last administered on 04:41; Admin Dose 125 MLS/HR; Start 12/01/16 at 04:00 Famotidine (Pepcid Iv) 20 mg DAILY IV Last administered on 12/01/16 09:40; Admin Dose 20 MG; Start 11/30/16 at 09:00 Metoprolol Tartrate (Lopressor) 25 mg BID GTB ; Start 12/01/16 at 12:00 Metoprolol Tartrate (Lopressor) 2.5 mg Q2H PRN IV heart rate over 110; Start at 12:00 MARIA ELENA COLLADO Dec 01, 2016 13:03
[2016-12-01] MEDS: METOPROLOL 25 MG TAB GTB SCH ×2 (14:27→21:08)
--- NOTE | 2016-12-01 17:21 | RADRPT ---
Echocardiogram Report Patient Name: OBDULIO FIELDS Gender: Male Date: 1935 Study Date: 01-Dec-2016 Director Of Vocational Guidance: PILAR Location: I Ref. Physician: RUKHSANA ONTIVEROS Quality: Technically Difficult Study Procedures: Transthoracic echocardiogram with 2D, M-Mode, and Doppler examination. Indications: Atrial Fibrillation and tachycardia. 2D/M Mode Doppler Measurement Value Normal Ranges Measurement Value Normal Ranges AoR Diam MM 3.2 cm AV Peak Mahesh 1.0 m/sec ACS MM 1.5 cm AV Peak PG 4.4 mmHg LVIDd 2D 3.6 3.5 - 5.6 cm LVOT Peak Mahesh 0.8 m/sec LVIDs 2D 2.7 2.1 - 4.1 cm LVOT Peak PG 2.7 mmHg LVPWd 2D 1.0 0.6 - 1.1 cm MV E Peak Mahesh 0.7 m/sec IVSd 2D 1.1 0.6 - 1.1 cm MV A Peak Mahesh 1.0 m/sec AoR Diam 2D 3.5 2.0 - 3.7 cm MV E/A 0.7 EDV 2D 55.6 cm3 MV Decel Time 148 msec ESV 2D 19.1 cm3 MV Decel [place] 5 LA Dimen 2D 3.5 2.3 - 4.0 cm MV E/A 0.7 TR Peak Mahesh 3.0 m/sec TR Peak PG 35.1 mmHg PV Peak Mahesh 1.0 m/sec PV Peak PG 4.0 mmHg RVSP 38.1 mmHg Findings Left Ventricle: Overall, normal left ventricular systolic function, foreshortened apicals views. Normal left ventricular cavity size. Normal left ventricular wall thickness. Ejection fraction is visually estimated at 50 %. Tissue Doppler/Mitral Doppler indices are within normal limits, LA volumes could not be done. E/E`=9. Right Ventricle: Normal right ventricular size. Normal right ventricular systolic function. Left Atrium: The left atrium is normal in size. Right Atrium: The right atrium is normal in size. Atrial Septum: Normal atrial septum. Mitral Valve: Normal appearance of the mitral valve. No mitral valve regurgitation is seen. Aortic Valve: Normal appearance of the aortic valve. No significant aortic stenosis or insufficiency. Aortic sclerosis without stenosis. Tricuspid Valve: Normal appearance of the tricuspid valve. Estimated peak PA systolic pressure 38 mmHg. There is mild to moderate tricuspid regurgitation. Pulmonic Valve: Pulmonic valve not well visualized. No evidence of pulmonic regurgitation. Pericardium: Normal pericardium with no significant pericardial effusion. Aorta: Normal aortic root. IVC: Inferior vena cava without respiratory collapse, however, patient on ventilator. Pulmonary Artery: Normal pulmonary artery size. Conclusions Technically difficult study. Low normal left ventricular systolic function. Mild-moderate tricuspid regurgitation with mild pulmonary hypertension. Electronically Signed By: Rukhsana Ontiveros 01-Dec-2016 17:20:41 -0700 Patient Name: OBDULIO FIELDS Study Date: 01-Dec-2016 [id number]
--- NOTE | 2016-12-01 18:37 | RADRPT ---
Vent Rate: 86 bpm RR Interval: 0 msec WV Interval: 138 msec QRS Duration: 80 msec QT Interval: 388 msec QTC Interval: 464 msec P-R-T [place]: 47 - 79 - 72 degrees Normal sinus rhythm ST abnormality, possible digitalis effect Abnormal ECG Electronically Signed By: Yung Kumar [id number]
[2016-12-01] MEDS: ACETAMINOPHEN 325 MG TAB PEG PRN (22:57)
[2016-12-02] VITALS (26 sets, daily range): BP systolic 115–176; BP diastolic 60–100; PULSE 70–111; RESP 15–24
[2016-12-02] MEDS: VANCOMYCIN 1 GM in NS 250 ML IVPB SCH (04:56)
[2016-12-02] MEDS: morphine 2 MG INJ IV PRN ×2 (05:12→10:44)
[2016-12-02 05:28] LABS: ADD SCAN DIFF NO
[2016-12-02 05:32] LABS: BASOPHILS % 0.1 % (0.0-2.0); EOSINOPHILS # 0.1 10^3/ul (0.0-0.5); EOSINOPHILS % 0.6 % (0.0-7.0); HEMATOCRIT 26.5 % (42.0-52.0); HEMOGLOBIN 8.4 g/dl (14.0-18.0); LYMPHOCYTES % 5.1 % (15.0-51.0); MEAN CORPUSCULAR HEMOGLOBIN 27.7 pg (29.0-33.0); MEAN CORPUSCULAR HGB CONC 31.7 g/dl (32.0-37.0); MEAN CORPUSCULAR VOLUME 87.5 fl (82.0-101.0); MEAN PLATELET VOLUME 9.3 fl (7.4-10.4); MONOCYTE # 0.8 10^3/ul (0.3-0.9); MONOCYTES % 4.1 % (0.0-11.0); NEUTROPHIL # 16.9 10^3/ul (1.6-7.5); PLATELET COUNT 323 10^3/UL (140-415); RED BLOOD COUNT 3.03 10^6/ul (4.70-6.10); RED CELL DISTRIBUTION WIDTH 15.2 % (11.5-14.5)
[2016-12-02 05:50] LABS: CALCIUM 8.7 mg/dl (8.4-10.2); CREATININE 0.59 mg/dl (0.61-1.24); MAGNESIUM 1.7 mg/dl (1.7-2.5); POTASSIUM 3.1 mmol/L (3.5-5.1)
[2016-12-02] MEDS: POTASSIUM CHLORIDE 50 ML IVPB PRN ×3 (06:32→10:13)
[2016-12-02] MEDS: PIPER-TAZO 3.375 GM IV (PMX) 100 ML IVPB SCH ×3 (06:32→21:27)
[2016-12-02] MEDS: FAMOTIDINE 20 MG INJ IV SCH (08:44)
[2016-12-02] MEDS: METOPROLOL 25 MG TAB GTB SCH ×2 (08:45→21:28)
[2016-12-02] MEDS ORDERED: MAGNESIUM SULFATE 2 GM/50 ML 50 ML IVPB ONE (10:00)
[2016-12-02 10:19] LABS: ADD SCAN DIFF NO
--- NOTE | 2016-12-02 10:25 | PN ---
Date/Time of Note Date/Time of Note DATE: 12/02/16 TIME: 09:41 Assessment/Plan VTE Prophylaxis VTE Prophylaxis Intervention: SCD's Lines/Catheters IV Catheter Type (from Nrsg): PICC Line Central line still needed: Yes (for IV access ) Urinary Cath still in place: Yes Reason Cath still needed: other (indicate) (monitor UOP ) Assessment/Plan Assessment/Plan 81yo man with: 1. Sepsis, Bilateral Pneumonia, HCAP vs VAP, continue current antibiotic regimen and vent support. Patient seems more comfortable, alert and responsive. 2. Chronic vent-dependent respiratory failure, stable on Vent, oxygenating well Continue Vancomycin and Zosyn 3. Hypokalemia/Hypomagnesemia: Repleting Mag and K 4. Severe Anemia, possible GI bleeding, Unclear source for now, repeat CBC pending No evidence for active bleeding for now. Iron study, Ferritin, Folate and B12 GI consult 5. Elevated troponins in setting of a fib with RVR and sepsis , HR controlled with Bblocker Appreciate Cardiology recommendations No anticoag due to Anemia 6. Nuchal rigidity and neck pain, ? meningitis on admission: may need LP to r/o meningitis, Trach and vented, will check coag and see if IR can do procedure. 7. MRSA nares: Bactroban, on Vancomycin already Prophylaxis: Continue SCDs and Famotidine Disposition: Transfer to Telemetry today, GI consult after repeat CBC, d/c droplet isolation and contact isolation DNR Subjective 24 Hr Interval Summary Free Text/Dictation Patient Awake and alert Chronically vent dependent Afebrile, HR controlled on Blockers Needs contact isolation for MRSA nares ?Meningitis on admit, will get LP if possible Exam/Review of Systems Vital Signs Vitals Vital Signs Date Time Temp Pulse Resp B/P Pulse Ox O2 Delivery O2 Flow Rate FiO2 12/02/16 08:00 98.1 107 135/61 98 Mechanical Ventilator Trach Collar 12/02/16 07:35 18 40 Intake and Output 12/01/16 12/01/16 12/02/16 15:00 23:00 07:00 Intake Total 550 ml 680 ml 420 ml Output Total 530 ml 440 ml 406 ml Balance 20 ml 240 ml 14 ml Exam Constitutional: alert, other (trached on Vent ) Neck: other (nuchal pain and rigidity ), supple Respiratory: diminished breath sounds (b/l ) Cardiovascular: irregular rhythm (a fib controlled ) Gastrointestinal: non-tender, soft Extremities: normal pulses, other (no edema, clubbing or cyanosis ) 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, other (trached and pEG) Skin: other (Stage III decub ) Results Result Diagram: 12/02/16 0506 12/02/16 0506 Results 24 hrs Laboratory Tests Test 12/02/16 05:06 White Blood Count 19.0 #H Red Blood Count 3.03 #L Hemoglobin 8.4 #L Hematocrit 26.5 #L Mean Corpuscular Volume 87.5 Mean Corpuscular Hemoglobin 27.7 L Mean Corpuscular Hemoglobin Concent 31.7 L Red Cell Distribution Width 15.2 H Platelet Count 323 # Mean Platelet Volume 9.3 Neutrophils % 89.0 H Lymphocytes % 5.1 L Monocytes % 4.1 Eosinophils % 0.6 Basophils % 0.1 Nucleated Red Blood Cells % 0.0 Neutrophils # 16.9 H Lymphocytes # 1.0 Monocytes # 0.8 Eosinophils # 0.1 Basophils # 0.0 Nucleated Red Blood Cells # 0.0 Sodium Level 137 Potassium Level 3.1 L Chloride Level 100 Carbon Dioxide Level 32 H Anion Gap 8 Blood Urea Nitrogen 30 H Creatinine 0.59 L Glucose Level 187 Calcium Level 8.7 Magnesium Level 1.7 Medications Medications Current Medications Acetaminophen (Tylenol Tab) 650 mg Q6H PRN PEG PAIN LEVEL 1-3 OR FEVER Last administered on 12/01/16 22:57; Admin Dose 650 MG; Start 11/30/16 at 05:00 Morphine Sulfate (morphine) 2 mg Q4H PRN IV PAIN LEVEL 7-10 Last administered on 12/02/16 05:12; Admin Dose 2 MG; Start 11/30/16 at 05:00 Miscellaneous Information 1 ea NOTE XX ; Start 11/30/16 at 05:00 Glucose (Glutose) 15 gm Q15M PRN PO DECREASED GLUCOSE; Start 11/30/16 at 05:00 Glucose (Glutose) 22.5 gm Q15M PRN PO DECREASED GLUCOSE; Start 11/30/16 at 05: 00 Dextrose (D50w Syringe) 25 ml Q15M PRN IV DECREASED GLUCOSE; Start 11/30/16 at 05:00 Dextrose (D50w Syringe) 50 ml Q15M PRN IV DECREASED GLUCOSE; Start 11/30/16 at 05:00 Glucagon (Glucagen) 1 mg Q15M PRN IM DECREASED GLUCOSE; Start 11/30/16 at 05:00 Glucose 15 gm 15 gm Q15M PRN BUCCAL DECREASED GLUCOSE; Start 11/30/16 at 05:00 Piperacillin Sod/ Tazobactam Sod 100 ml @ 200 mls/hr Q8 IVPB Last administered on 12/02/16 06:32; Admin Dose 200 MLS/HR; Start 11/30/16 at 08:00 Vancomycin HCl (Vancocin) 250 ml @ 125 mls/hr Q24H IVPB Last administered on 04:56; Admin Dose 125 MLS/HR; Start 12/01/16 at 04:00 Famotidine (Pepcid Iv) 20 mg DAILY IV Last administered on 12/02/16 08:44; Admin Dose 20 MG; Start 11/30/16 at 09:00 Metoprolol Tartrate (Lopressor) 25 mg BID GTB Last administered on 12/02/16 08 :45; Admin Dose 25 MG; Start 12/01/16 at 12:00 Metoprolol Tartrate (Lopressor) 2.5 mg Q2H PRN IV heart rate over 110; Start at 12:00 CHARLETTE RUTHERFORD Dec 02, 2016 10:19
[2016-12-02 10:26] LABS: BASOPHIL # 0.1 10^3/ul (0.0-0.1); BASOPHILS % 0.3 % (0.0-2.0); EOSINOPHILS # 0.2 10^3/ul (0.0-0.5); HEMATOCRIT 26.9 % (42.0-52.0); HEMOGLOBIN 8.5 g/dl (14.0-18.0); LYMPHOCYTES # 1.2 10^3/ul (0.8-2.9); MEAN CORPUSCULAR HEMOGLOBIN 27.9 pg (29.0-33.0); MEAN CORPUSCULAR HGB CONC 31.6 g/dl (32.0-37.0); MEAN CORPUSCULAR VOLUME 88.2 fl (82.0-101.0); MEAN PLATELET VOLUME 9.3 fl (7.4-10.4); MONOCYTE # 0.8 10^3/ul (0.3-0.9); MONOCYTES % 4.2 % (0.0-11.0); NEUTROPHILS % 87.4 % (39.0-77.0); PLATELET COUNT 346 10^3/UL (140-415); RED BLOOD COUNT 3.05 10^6/ul (4.70-6.10); RED CELL DISTRIBUTION WIDTH 15.3 % (11.5-14.5); WHITE BLOOD COUNT 19.4 10^3/ul (4.8-10.8)
--- NOTE | 2016-12-02 10:53 | CONS ---
Date/Time of Note Date/Time of Note DATE: 12/02/16 TIME: 10:49 Consult Date/Type/Reason Admit Date/Time Nov 30, 2016 at 04:54 Initial Consult Date 12/01/16 Type of Consultation: Pulmonary/critical care Ordering Provider: NEGRITO PEREZ M.D. Subjective Patient opens eyes appears comfortable at rest no acute distress Objective Vital Signs Date Time Temp Pulse Resp B/P Pulse Ox O2 Delivery O2 Flow Rate FiO2 12/02/16 10:25 21 22 99 40 12/02/16 08:00 98.1 135/61 Mechanical Ventilator Trach Collar Intake and Output 12/01/16 12/01/16 12/02/16 15:00 23:00 07:00 Intake Total 550 ml 680 ml 420 ml Output Total 530 ml 440 ml 406 ml Balance 20 ml 240 ml 14 ml Exam PHYSICAL EXAMINATION GENERAL: Elderly gentleman, continues mechanical ventilation via tracheostomy VITAL SIGNS: see below. HEENT: Pupils equal, round, and reactive to light. Tracheostomy site clean and intact. CARDIAC: S1, S2, 2/6 systolic ejection murmur CHEST: Diminished air entry bilaterally. ABDOMEN: Mildly distended. Bowel sounds present no guarding or rebound EXTREMITIES: No cyanosis, clubbing edema +1 NEUROLOGIC: Generalized weakness Results/Medications Result Diagram: 12/02/16 1005 12/02/16 0506 Results 24 hrs Laboratory Tests Test 12/02/16 05:06 12/02/16 10:05 White Blood Count 19.0 #H 19.4 H Red Blood Count 3.03 #L 3.05 L Hemoglobin 8.4 #L 8.5 L Hematocrit 26.5 #L 26.9 L Mean Corpuscular Volume 87.5 88.2 Mean Corpuscular Hemoglobin 27.7 L 27.9 L Mean Corpuscular Hemoglobin Concent 31.7 L 31.6 L Red Cell Distribution Width 15.2 H 15.3 H Platelet Count 323 # 346 Mean Platelet Volume 9.3 9.3 Neutrophils % 89.0 H 87.4 H Lymphocytes % 5.1 L 6.0 L Monocytes % 4.1 4.2 Eosinophils % 0.6 1.0 Basophils % 0.1 0.3 Nucleated Red Blood Cells % 0.0 0.0 Neutrophils # 16.9 H 17.0 H Lymphocytes # 1.0 1.2 Monocytes # 0.8 0.8 Eosinophils # 0.1 0.2 Basophils # 0.0 0.1 Nucleated Red Blood Cells # 0.0 0.0 Sodium Level 137 Potassium Level 3.1 L Chloride Level 100 Carbon Dioxide Level 32 H Anion Gap 8 Blood Urea Nitrogen 30 H Creatinine 0.59 L Glucose Level 187 Calcium Level 8.7 Magnesium Level 1.7 Medications Current Medications Acetaminophen (Tylenol Tab) 650 mg Q6H PRN PEG PAIN LEVEL 1-3 OR FEVER Last administered on 12/01/16 22:57; Admin Dose 650 MG; Start 11/30/16 at 05:00 Morphine Sulfate (morphine) 2 mg Q4H PRN IV PAIN LEVEL 7-10 Last administered on 12/02/16 10:44; Admin Dose 2 MG; Start 11/30/16 at 05:00 Miscellaneous Information 1 ea NOTE XX ; Start 11/30/16 at 05:00 Glucose (Glutose) 15 gm Q15M PRN PO DECREASED GLUCOSE; Start 11/30/16 at 05:00 Glucose (Glutose) 22.5 gm Q15M PRN PO DECREASED GLUCOSE; Start 11/30/16 at 05: 00 Dextrose (D50w Syringe) 25 ml Q15M PRN IV DECREASED GLUCOSE; Start 11/30/16 at 05:00 Dextrose (D50w Syringe) 50 ml Q15M PRN IV DECREASED GLUCOSE; Start 11/30/16 at 05:00 Glucagon (Glucagen) 1 mg Q15M PRN IM DECREASED GLUCOSE; Start 11/30/16 at 05:00 Glucose 15 gm 15 gm Q15M PRN BUCCAL DECREASED GLUCOSE; Start 11/30/16 at 05:00 Piperacillin Sod/ Tazobactam Sod 100 ml @ 200 mls/hr Q8 IVPB Last administered on 12/02/16 06:32; Admin Dose 200 MLS/HR; Start 11/30/16 at 08:00 Vancomycin HCl (Vancocin) 250 ml @ 125 mls/hr Q24H IVPB Last administered on 04:56; Admin Dose 125 MLS/HR; Start 12/01/16 at 04:00 Famotidine (Pepcid Iv) 20 mg DAILY IV Last administered on 12/02/16 08:44; Admin Dose 20 MG; Start 11/30/16 at 09:00 Metoprolol Tartrate (Lopressor) 25 mg BID GTB Last administered on 12/02/16 08 :45; Admin Dose 25 MG; Start 12/01/16 at 12:00 Metoprolol Tartrate 2.5 mg 2.5 mg Q2H PRN IV heart rate over 110; Start at 12:00 Magnesium Sulfate (Magnesium Sulfate 2 Gm/50 ml) 50 ml @ 25 mls/hr ONCE ONCE IVPB Last administered on 12/02/16t 10:44; Admin Dose 25 MLS/HR; Start at 10:00; Stop 12/02/16 at 11:59 Miscellaneous Information (*Rx Drug Level Order Reminder*) 1 ONCE ONCE XX ; Start 12/03/16 at 03:00; Stop 12/03/16 at 03:01 Assessment/Plan Chief Complaint/Hosp Course Assessment 1. Hypoxemic respiratory failure on mechanical ventilation via tracheostomy 2. Likely healthcare associated pneumonia 3. Mild dehydration 4. Anemia of chronic disease 5. History of CVA 6. Dysphagia with G-tube Plan 1. Continue mechanical ventilation 2. Continue broad-spectrum antibiotics 3. Tube feeding as tolerated 4. Correction of electrolyte abnormalities 5. DVT GI prophylaxis Disposition Consider transfer to telemetry Problems: JOSEF HERRING [facility], [facility] Dec 02, 2016 10:53
[2016-12-02 11:28] LABS: IRON 23 ug/dl (35-150)
[2016-12-02] MEDS ORDERED: PENDING SANTYL ORDER FOR WOUND CARE XX PRN (11:30)
[2016-12-02] MEDS ORDERED: COLLAGENASE 30 GM TUBE TOP PRN (11:30)
[2016-12-02 11:38] LABS: TOTAL IRON BINDING CAPACITY 145 ug/dl (241-421)
[2016-12-02 12:02] LABS: INR 1.33; PROTIME 16.6 Sec (12.2-14.2); PT RATIO 1.3
[2016-12-02 12:03] LABS: PARTIAL THROMBOPLASTIN TIME 32.1 Sec (25.0-35.0)
[2016-12-02 12:05] LABS: FOLATE > 20.0 ng/ml (2.8-20.0)
[2016-12-02] MEDS: COLLAGENASE 30 GM TUBE TOP SCH (14:37)
[2016-12-02] MEDS: ACETAMINOPHEN 325 MG TAB PEG PRN (14:41)
[2016-12-02 15:34] LABS: POTASSIUM 3.9 mmol/L (3.5-5.1)
[2016-12-02 15:36] LABS: CREATININE 0.52 mg/dl (0.61-1.24)
[2016-12-02 15:38] LABS: CALCIUM 8.9 mg/dl (8.4-10.2)
[2016-12-02] MEDS: MUPIROCIN 2% 22 GM OINT TOP SCH (21:27)
[2016-12-03] VITALS (25 sets, daily range): BP systolic 140–190; BP diastolic 62–86; PULSE 74–104; RESP 16–23
[2016-12-03 03:23] LABS: ADD SCAN DIFF NO
[2016-12-03 03:33] LABS: ABNORMAL IP MESSAGE 1; HEMATOCRIT 25.8 % (42.0-52.0); HEMOGLOBIN 8.2 g/dl (14.0-18.0); MEAN CORPUSCULAR HEMOGLOBIN 28.3 pg (29.0-33.0); MEAN CORPUSCULAR HGB CONC 31.8 g/dl (32.0-37.0); MEAN PLATELET VOLUME 9.4 fl (7.4-10.4); PLATELET COUNT 305 10^3/UL (140-415); RED CELL DISTRIBUTION WIDTH 15.3 % (11.5-14.5); WHITE BLOOD COUNT 23.9 10^3/ul (4.8-10.8)
[2016-12-03 03:38] LABS: POTASSIUM 3.3 mmol/L (3.5-5.1)
[2016-12-03 03:41] LABS: CREATININE 0.56 mg/dl (0.61-1.24)
[2016-12-03 03:42] LABS: CALCIUM 8.8 mg/dl (8.4-10.2); MAGNESIUM 2.1 mg/dl (1.7-2.5); PHOSPHORUS 2.7 mg/dl (2.5-4.9)
[2016-12-03 04:13] LABS: BASOPHIL # 0.2 10^3/ul (0.0-0.1); EOSINOPHILS # 0.2 10^3/ul (0.0-0.5); LYMPHOCYTES # 1.2 10^3/ul (0.8-2.9); MONOCYTE # 0.5 10^3/ul (0.3-0.9); NEUTROPHIL # 21.7 10^3/ul (1.6-7.5)
[2016-12-03 04:14] LABS: ANISOCYTOSIS 1+; HYPOCHROMASIA 1+
[2016-12-03 04:15] LABS: PLATELET ESTIMATE PLT APPEAR ADEQUATE; STOMATOCYTES FEW
[2016-12-03] MEDS: VANCOMYCIN 1 GM in NS 250 ML IVPB SCH (04:41)
[2016-12-03] MEDS: PIPER-TAZO 3.375 GM IV (PMX) 100 ML IVPB SCH (06:31)
[2016-12-03] MEDS: FAMOTIDINE 20 MG INJ IV SCH (08:52)
[2016-12-03] MEDS: METOPROLOL 25 MG TAB GTB SCH ×2 (08:52→21:16)
[2016-12-03] MEDS: COLLAGENASE 30 GM TUBE TOP SCH (08:53)
[2016-12-03] MEDS: MUPIROCIN 2% 22 GM OINT TOP SCH ×2 (08:53→21:16)
[2016-12-03] MEDS ORDERED: POTASSIUM CHLORIDE 20 MEQ POWDER FOR ORAL SOLN GTB ONE (09:45)
--- NOTE | 2016-12-03 11:06 | CONS ---
Date/Time of Note Date/Time of Note DATE: 12/03/16 TIME: 11:04 Assessment/Plan Assessment/Plan Additional Assessment/Plan Ventilator settings; AC of 18, tidal volume of 550, PEEP of 5, 40% FiO2. Assessment recommendations; 1. Patient admitted for severe right lower lobe pneumonia, healthcare associated. 2. Chronic respiratory failure, ventilator dependent. 3. Quadriplegia. 4. She will hypertension. Continue current treatment. Obtain a follow-up chest x-ray. Consultation Date/Type/Reason Admit Date/Time Nov 30, 2016 at 04:54 Initial Consult Date 12/01/16 Type of Consultation: Pulmonary/critical care Referring Provider: NEGRITO PEREZ M.D. 24 HR Interval Summary Free Text/Dictation Patient condition is stable. Remains completely awake alert. Has remained hemodynamically stable. General exam; elderly male, on ventilator via tracheostomy currently in no distress. Exam/Review of Systems Vital Signs Vitals Vital Signs Date Time Temp Pulse Resp B/P Pulse Ox O2 Delivery O2 Flow Rate FiO2 12/03/16 09:35 84 19 99 40 12/03/16 07:30 98.6 153/77 12/02/16 14:59 Mechanical Ventilator Trach Collar Intake and Output 12/02/16 12/02/16 12/03/16 15:00 23:00 07:00 Intake Total 460 ml 560 ml 250 ml Output Total 400 ml 250 ml Balance 60 ml 310 ml 250 ml Exam HEENT exam is; supple neck, no JVD. No lymphadenopathy. Midline trachea. No thyromegaly. Tracheostomy in place with clean insertion site. No neck masses. Patient is edentulous. Both are equal and reactive to light. Chest exam is; diminished breath sounds right lower lobe. Rest of the lung demarco are clear. S1-S2 audible, no murmurs., Regular rhythm. Abdomen examination; soft, G-tube in place. No organomegaly. Bowel sounds audible. Extremity exam is; no peripheral edema. 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 Results Result Diagram: 12/03/16 0315 12/03/16 0315 Results 24 hrs Laboratory Tests Test 12/02/16 11:43 12/02/16 14:55 12/03/16 03:15 12/03/16 10:10 Prothrombin Time 16.6 H Prothrombin Time Ratio 1.3 INR International Normalized Ratio 1.33 Activated Partial Thromboplast Time 32.1 Sodium Level 140 142 Potassium Level 3.9 3.3 L Chloride Level 99 103 Carbon Dioxide Level 31 30 Anion Gap 14 12 Blood Urea Nitrogen 30 H 25 H Creatinine 0.52 L 0.56 L Glucose Level 145 # 113 Calcium Level 8.9 8.8 White Blood Count 23.9 #H Red Blood Count 2.90 L Hemoglobin 8.2 L Hematocrit 25.8 L Mean Corpuscular Volume 89.0 Mean Corpuscular Hemoglobin 28.3 L Mean Corpuscular Hemoglobin Concent 31.8 L Red Cell Distribution Width 15.3 H Platelet Count 305 Mean Platelet Volume 9.4 Neutrophils % 91.0 H Lymphocytes % 5.0 L Monocytes % 2.0 Eosinophils % 1.0 Basophils % 1.0 Neutrophils # 21.7 H Lymphocytes # 1.2 Monocytes # 0.5 Eosinophils # 0.2 Basophils # 0.2 H Differential Comment MANUAL DIFF Platelet Estimate PLT APPEAR ADEQUATE Large Platelets FEW Hypochromasia 1+ Anisocytosis 1+ Stomatocytes FEW Phosphorus Level 2.7 Magnesium Level 2.1 Vancomycin Level Trough 12.6 Lactic Acid Level 1.1 Medications Medications Current Medications Acetaminophen (Tylenol Tab) 650 mg Q6H PRN PEG PAIN LEVEL 1-3 OR FEVER Last administered on 12/02/16 14:41; Admin Dose 650 MG; Start 11/30/16 at 05:00 Morphine Sulfate (morphine) 2 mg Q4H PRN IV PAIN LEVEL 7-10 Last administered on 12/02/16 10:44; Admin Dose 2 MG; Start 11/30/16 at 05:00 Miscellaneous Information 1 ea NOTE XX ; Start 11/30/16 at 05:00 Glucose (Glutose) 15 gm Q15M PRN PO DECREASED GLUCOSE; Start 11/30/16 at 05:00 Glucose (Glutose) 22.5 gm Q15M PRN PO DECREASED GLUCOSE; Start 11/30/16 at 05: 00 Dextrose (D50w Syringe) 25 ml Q15M PRN IV DECREASED GLUCOSE; Start 11/30/16 at 05:00 Dextrose (D50w Syringe) 50 ml Q15M PRN IV DECREASED GLUCOSE; Start 11/30/16 at 05:00 Glucagon (Glucagen) 1 mg Q15M PRN IM DECREASED GLUCOSE; Start 11/30/16 at 05:00 Glucose 15 gm 15 gm Q15M PRN BUCCAL DECREASED GLUCOSE; Start 11/30/16 at 05:00 Vancomycin HCl (Vancocin) 250 ml @ 125 mls/hr Q24H IVPB Last administered on 04:41; Admin Dose 125 MLS/HR; Start 12/01/16 at 04:00 Famotidine (Pepcid Iv) 20 mg DAILY IV Last administered on 12/03/16 08:52; Admin Dose 20 MG; Start 11/30/16 at 09:00 Metoprolol Tartrate (Lopressor) 25 mg BID GTB Last administered on 12/03/16 08 :52; Admin Dose 25 MG; Start 12/01/16 at 12:00 Metoprolol Tartrate (Lopressor) 2.5 mg Q2H PRN IV heart rate over 110; Start at 12:00 Miscellaneous Information (Pending Santyl Order For Wound Care) This patient anton... PRN PRN XX WOUND CARE; Start 12/02/16 at 11:30 Collagenase (Santyl) 1 applic DAILY TOP Last administered on 12/03/16 08:53; Admin Dose 1 APPLIC; Start 12/02/16 at 12:00 Collagenase (Santyl) 1 applic DAILY PRN TOP PER WOUND CARE ORDERS; Start at 11:30 Mupirocin 1 applic 1 applic BID TOP Last administered on 12/03/16 08:53; Admin Dose 1 APPLIC; Start 12/02/16 at 21:00; Stop 12/16/16 at 20:59 Imipenem/ Cilastatin Sodium (Primaxin 500 Mg/ 100 ml (Pmx)) 100 ml @ 100 mls/ hr Q8 IVPB ; Start 12/03/16 at 10:00 MARIA ELENA COLLADO Dec 03, 2016 11:06
[2016-12-03] MEDS: IMIPENEM-CILAST 500MG IV (PMX) 100 ML IVPB SCH ×3 (11:50→21:16)
--- NOTE | 2016-12-03 13:07 | RADRPT ---
PROCEDURE: XR Chest. CLINICAL INDICATION: Shortness of breath. TECHNIQUE: Single frontal view. COMPARISON: 12/01/2016. FINDINGS: The tracheostomy tube and left arm PICC line are in satisfactory position. There is consolidation th roughout the right mid and lower lung zones, slightly worse than seen previously. Left basilar atel ectasis or pneumonia is improved. The heart size is normal. There is calcification in the aorta consistent with atherosclerosis. There is no pleural effusion. There is no pneumothorax. IMPRESSION: 1. Worse appearance of the right lung and improved appearance of the left lung. 2. No other change from 12/01/2016. RPTAT: QQ .Dayday Castañeda MD, MD Date Time Electronically viewed and signed by .Dayday Castañeda MD, MD on 12/03/2016 13:07 .R/
--- NOTE | 2016-12-03 13:16 | PN ---
Date/Time of Note Date/Time of Note DATE: 12/03/16 TIME: 13:03 Assessment/Plan VTE Prophylaxis VTE Prophylaxis Intervention: SCD's Lines/Catheters IV Catheter Type (from Nrsg): PICC Line Central line still needed: Yes (for IV access ) Urinary Cath still in place: Yes Reason Cath still needed: other (indicate) (monitor UOP ) Assessment/Plan Assessment/Plan 81yo man with: 1. Sepsis, Bilateral Pneumonia, HCAP vs VAP, WBC up to 23k today and fever yesterday Sputum with MRSA and on Vanco Changing to Imipenem and Vanco and Zosyn discontinued ID consult pending CT neck and chest pending Patient seems more comfortable, alert and responsive today 2. Chronic vent-dependent respiratory failure, stable on Vent, oxygenating well. Per family has been able to get off vent and have some puree with trach capped at subacute facility. Continue Vancomycin and now Imipenem 3. Hypokalemia/Hypomagnesemia: Repleting Mag and K prn 4. Severe Anemia, possible GI bleeding, Unclear source for now. Hb stable. No evidence for active bleeding for now. Resume Iron supplement GI consult if needed 5. Elevated troponins in setting of a fib with RVR and sepsis , HR controlled with Bblocker Appreciate Cardiology recommendations No anticoag due to Anemia 6. Nuchal rigidity and neck pain: CT neck pending today, further procedure to be planned based on results and clinical course 7. MRSA nares: Bactroban, on Vancomycin already Prophylaxis: Continue SCDs and Famotidine Disposition:Stable onTelemetry, on contact isolation. CT chest and Neck pending. DNR Subjective 24 Hr Interval Summary Free Text/Dictation Patient seems better, more awake and interactive with family Neck pain, no rigidity, TTP along c spine, imaging pending Antibiotics being adjusted and ID consulted Exam/Review of Systems Vital Signs Vitals Vital Signs Date Time Temp Pulse Resp B/P Pulse Ox O2 Delivery O2 Flow Rate FiO2 12/03/16 12:12 81 12/03/16 11:15 21 98 35 12/03/16 11:10 97.9 167/82 12/02/16 14:59 Mechanical Ventilator Trach Collar Intake and Output 12/02/16 12/02/16 12/03/16 15:00 23:00 07:00 Intake Total 460 ml 560 ml 250 ml Output Total 400 ml 250 ml Balance 60 ml 310 ml 250 ml Exam Constitutional: alert, other (interactive on Vent ) Neck: other (some pain and TTP along c spine on exam bit had FROM with no increase pain ), supple Respiratory: diminished breath sounds (bases bilaterally ), other (on Vent ) Cardiovascular: nl pulses, regular rate and rhythm Gastrointestinal: non-tender, soft Musculoskeletal: nl extremities to inspection Extremities: normal pulses, other (no edema, clubbing or cyanosis) Neurological: ACUTE COORDINATOR II-XII intact, nl mental status, other (much more awake) Results Result Diagram: 12/03/1631412/03/16314 Results 24 hrs Laboratory Tests Test 12/02/16 14:55 12/03/16 03:15 12/03/16 10:10 Sodium Level 140 142 Potassium Level 3.9 3.3 L Chloride Level 99 103 Carbon Dioxide Level 31 30 Anion Gap 14 12 Blood Urea Nitrogen 30 H 25 H Creatinine 0.52 L 0.56 L Glucose Level 145 # 113 Calcium Level 8.9 8.8 White Blood Count 23.9 #H Red Blood Count 2.90 L Hemoglobin 8.2 L Hematocrit 25.8 L Mean Corpuscular Volume 89.0 Mean Corpuscular Hemoglobin 28.3 L Mean Corpuscular Hemoglobin Concent 31.8 L Red Cell Distribution Width 15.3 H Platelet Count 305 Mean Platelet Volume 9.4 Neutrophils % 91.0 H Lymphocytes % 5.0 L Monocytes % 2.0 Eosinophils % 1.0 Basophils % 1.0 Neutrophils # 21.7 H Lymphocytes # 1.2 Monocytes # 0.5 Eosinophils # 0.2 Basophils # 0.2 H Differential Comment MANUAL DIFF Platelet Estimate PLT APPEAR ADEQUATE Large Platelets FEW Hypochromasia 1+ Anisocytosis 1+ Stomatocytes FEW Phosphorus Level 2.7 Magnesium Level 2.1 Vancomycin Level Trough 12.6 Lactic Acid Level 1.1 Medications Medications Current Medications Acetaminophen (Tylenol Tab) 650 mg Q6H PRN PEG PAIN LEVEL 1-3 OR FEVER Last administered on 12/02/16 14:41; Admin Dose 650 MG; Start 11/30/16 at 05:00 Morphine Sulfate (morphine) 2 mg Q4H PRN IV PAIN LEVEL 7-10 Last administered on 12/02/16 10:44; Admin Dose 2 MG; Start 11/30/16 at 05:00 Miscellaneous Information 1 ea NOTE XX ; Start 11/30/16 at 05:00 Glucose (Glutose) 15 gm Q15M PRN PO DECREASED GLUCOSE; Start 11/30/16 at 05:00 Glucose (Glutose) 22.5 gm Q15M PRN PO DECREASED GLUCOSE; Start 11/30/16 at 05: 00 Dextrose (D50w Syringe) 25 ml Q15M PRN IV DECREASED GLUCOSE; Start 11/30/16 at 05:00 Dextrose (D50w Syringe) 50 ml Q15M PRN IV DECREASED GLUCOSE; Start 11/30/16 at 05:00 Glucagon (Glucagen) 1 mg Q15M PRN IM DECREASED GLUCOSE; Start 11/30/16 at 05:00 Glucose (Glutose) 15 gm Q15M PRN BUCCAL DECREASED GLUCOSE; Start 11/30/16 at 05 :00 Famotidine (Pepcid Iv) 20 mg DAILY IV Last administered on 12/03/16 08:52; Admin Dose 20 MG; Start 11/30/16 at 09:00 Metoprolol Tartrate (Lopressor) 25 mg BID GTB Last administered on 12/03/16 08 :52; Admin Dose 25 MG; Start 12/01/16 at 12:00 Metoprolol Tartrate (Lopressor) 2.5 mg Q2H PRN IV heart rate over 110; Start at 12:00 Miscellaneous Information (Pending Santyl Order For Wound Care) This patient anton... PRN PRN XX WOUND CARE; Start 12/02/16 at 11:30 Collagenase (Santyl) 1 applic DAILY TOP Last administered on 12/03/16 08:53; Admin Dose 1 APPLIC; Start 12/02/16 at 12:00 Collagenase (Santyl) 1 applic DAILY PRN TOP PER WOUND CARE ORDERS; Start at 11:30 Mupirocin 1 applic 1 applic BID TOP Last administered on 12/03/16 08:53; Admin Dose 1 APPLIC; Start 12/02/16 at 21:00; Stop 12/16/16 at 20:59 Imipenem/ Cilastatin Sodium 100 ml @ 100 mls/hr Q8 IVPB Last administered on 11:50; Admin Dose 100 MLS/HR; Start 12/03/16 at 10:00 Vancomycin HCl/ Sodium Chloride (Vancocin/NS) 250 ml @ 83.333 mls/ hr Q24H IVPB ; Start 12/04/16 at 05:00 CHARLETTE RUTHERFORD Dec 03, 2016 13:13
--- NOTE | 2016-12-03 14:47 | CONS ---
DATE OF ADMISSION: 11/30/2016 DATE OF CONSULTATION: 12/03/2016 INFECTIOUS DISEASE CONSULTATION REASON FOR CONSULTATION: Antibiotic management. HISTORY OF PRESENT ILLNESS: Ruben Ruggiero is an 81-year-old male who comes in with nume jenny problems, transferred from correction facility with fever, increased difficulty breathing, altered level of consciousness. PAST MEDICAL HISTORY: The patient has: 1. Ventilator-dependent respiratory failure secondary to COPD. 2. Status post tracheostomy. 3. Coronary artery disease. 4. Adult-onset diabetes mellitus. 5. Hypercholesterolemia. 6. Hypertension. Acutely, the patient comes in with severe anemia, tachycardia, bilateral pneumonia. He was started on vancomycin and Zosyn. He is a DNR. There was a question of possible meningitis. Blood cultures were done. I believe an LP was done as well. He also has the possibility of gastrointestinal blee d with a drop in his hematocrit and hemoglobin, elevated troponins and with tachycardia, mild abdomi nal tenderness, diffuse, without rebound or guarding. CT scan of the abdomen when more stable. On admission, his white count was 20, H and H of 6.3 and 20.4, so he was profoundly anemic, platelet co unt 364,000. On the , his white count was 20.7, today is 23.9. BUN and creatinine are 25 and 0 .56. His urinalysis is negative for nitrite and leukocyte esterase. He only has 2 to 5 white cells per high-power field. Blood cultures are negative. Urine cultures are negative. 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 The patient was begun on vancomycin and imipenem. The otis renetta was seen in pulmonary consultation by Dr. Avila. The x-ray showed diffuse extensive infiltrat es involving the right lower lobe as well as infiltrative changes in the left lower lobe. He is on a ventilator, status post packed RBC transfusion. He has extensive right-sided infiltrate consisten t with clinical diagnosis of pneumonia, he is on a ventilator with tracheostomy. PAST MEDICAL HISTORY: Operations as outlined. FAMILY HISTORY: Noncontributory. SOCIAL HISTORY: He does not smoke, drink, or abuse drugs. PAST SURGICAL HISTORY: He has a G-tube as well. ALLERGIES: NONE TO PENICILLIN, SULFA, OR FOODS. MEDICATIONS: Per chart. REVIEW OF SYSTEMS: He is a former smoker. PHYSICAL EXAMINATION: GENERAL: The patient is an elderly-appearing male who is awake, noncommunicative, in no ac kenaitze distress. VITAL SIGNS: Stable. He is afebrile. SKIN: Without generalized rash. HEENT: Within normal limits. He is edentulous. NECK: He has a tracheostomy which is clean. Neck is supple. LYMPH NODES: None palpable. CHEST: Decreased breath sounds at the bases. HEART: Without murmur or gallop. ABDOMEN: Soft, nontender without organosplenomegaly or masses. He has a G-tube in place. There is a well-healed periumbilical scar. EXTREMITIES: Without cyanosis, clubbing, or edema. RECTAL AND GENITAL: Deferred. NEUROLOGIC: He can talk, but he is unable to move his extremities. IMPRESSION AND PLAN: A PICC line has been inserted into the left arm and chest x-ray appears worse in the right lung, improved in the left lung. The patient is currently on vancomycin and imipenem. A CT with and without IV contrast was ordered today, white count up to 23,000. He was placed on im ipenem, vancomycin and Zosyn discontinued. I concur with this regimen. The nares showed Staph laury us. I would like to see what his sputum shows. Will continue him on imipenem. He is also on vanco mycin, to which I concur. Continue current therapy. We will get a sputum culture. Dictated By: JANICE KENT MD, JD/MENDOZA Conf#: [id number] DID#: [id number]
[2016-12-03] MEDS ORDERED: IODIXANOL LOCM 100 ML BTL ONE (16:15)
[2016-12-03] MEDS ORDERED: SOD CHLORIDE 0.9% 100 ML ONE (16:15)
[2016-12-03] MEDS: morphine 2 MG INJ IV PRN (20:05)
[2016-12-04] VITALS (22 sets, daily range): BP systolic 161–179; BP diastolic 72–81; PULSE 68–103; RESP 15–24
[2016-12-04] MEDS: VANCOMYCIN 1.25 GM in SOD CHLORIDE 0.9% 250 ML IVPB SCH (04:55)
[2016-12-04] MEDS: morphine 2 MG INJ IV PRN (04:55)
[2016-12-04] MEDS: IMIPENEM-CILAST 500MG IV (PMX) 100 ML IVPB SCH ×3 (05:03→21:22)
[2016-12-04] MEDS: ACETAMINOPHEN 325 MG TAB PEG PRN (08:03)
[2016-12-04] MEDS: MUPIROCIN 2% 22 GM OINT TOP SCH ×2 (08:04→21:22)
[2016-12-04] MEDS: COLLAGENASE 30 GM TUBE TOP SCH (08:05)
[2016-12-04] MEDS: FAMOTIDINE 20 MG INJ IV SCH (08:05)
[2016-12-04] MEDS: METOPROLOL 25 MG TAB GTB SCH ×2 (08:06→21:26)
[2016-12-04 12:08] LABS: ADD SCAN DIFF NO
[2016-12-04 12:15] LABS: BASOPHILS % 0.2 % (0.0-2.0); EOSINOPHILS # 0.5 10^3/ul (0.0-0.5); EOSINOPHILS % 2.8 % (0.0-7.0); HEMATOCRIT 24.9 % (42.0-52.0); HEMOGLOBIN 7.9 g/dl (14.0-18.0); LYMPHOCYTES % 5.9 % (15.0-51.0); MEAN CORPUSCULAR HEMOGLOBIN 28.5 pg (29.0-33.0); MEAN CORPUSCULAR HGB CONC 31.7 g/dl (32.0-37.0); MEAN CORPUSCULAR VOLUME 89.9 fl (82.0-101.0); MEAN PLATELET VOLUME 9.5 fl (7.4-10.4); MONOCYTE # 0.7 10^3/ul (0.3-0.9); MONOCYTES % 3.9 % (0.0-11.0); NEUTROPHIL # 15.2 10^3/ul (1.6-7.5); NEUTROPHILS % 86.2 % (39.0-77.0); PLATELET COUNT 264 10^3/UL (140-415); RED BLOOD COUNT 2.77 10^6/ul (4.70-6.10); RED CELL DISTRIBUTION WIDTH 15.4 % (11.5-14.5); WHITE BLOOD COUNT 17.6 10^3/ul (4.8-10.8)
--- NOTE | 2016-12-04 12:23 | CONS ---
Date/Time of Note Date/Time of Note DATE: 12/04/16 TIME: 12:21 Assessment/Plan Assessment/Plan Additional Assessment/Plan Ventilator settings; assist control of 18, tidal volume 550, PEEP of 5, 40% FiO2. Chest x-ray was reviewed from yesterday afternoon which is showing extensive right lower lobe infiltrative changes. Assessment recommendations; 1. Patient admitted with right lower lobe pneumonia currently on broad- spectrum antibiotic coverage. 2. History of quadriplegia and chronic ventilator dependence. Continue current treatment. Consultation Date/Type/Reason Admit Date/Time Nov 30, 2016 at 04:54 Initial Consult Date 12/01/16 Type of Consultation: Pulmonary/critical care Referring Provider: NEGRITO PEREZ M.D. 24 HR Interval Summary Free Text/Dictation Patient condition is stable. Remains awake alert. Has remained hemodynamically stable. General exam; elderly male, on ventilator via tracheostomy currently in no distress. Exam/Review of Systems Vital Signs Vitals Vital Signs Date Time Temp Pulse Resp B/P Pulse Ox O2 Delivery O2 Flow Rate FiO2 12/04/16 12:13 73 12/04/16 11:24 98.0 19 162/76 98 12/04/16 05:48 40 12/02/16 14:59 Mechanical Ventilator Trach Collar Intake and Output 12/03/16 12/03/16 12/04/16 15:00 23:00 07:00 Intake Total 100 ml 120 ml 1150 ml Output Total 800 ml 1100 ml Balance 100 ml -680 ml 50 ml Exam HEENT exam; supple neck, no JVD. No lymphadenopathy. Midline trachea. Patient is edentulous. Pupils are midsize and reactive to light. Tracheostomy in place with clean insertion site. Chest examined; left lung is clear to auscultation with crackles involving right lower lobe. S1-S2 audible, no murmurs. Abdomen examination; soft, nondistended. No organomegaly. G-tube in place. Extremity exam is; no peripheral edema. PIPE WASHER examination; patient is awake and alert has stable quadriplegia. Results Result Diagram: 12/04/16 1206 12/03/16 0315 Results 24 hrs Laboratory Tests Test 12/04/16 12:06 White Blood Count 17.6 #H Red Blood Count 2.77 L Hemoglobin 7.9 L Hematocrit 24.9 L Mean Corpuscular Volume 89.9 Mean Corpuscular Hemoglobin 28.5 L Mean Corpuscular Hemoglobin Concent 31.7 L Red Cell Distribution Width 15.4 H Platelet Count 264 Mean Platelet Volume 9.5 Neutrophils % 86.2 H Lymphocytes % 5.9 L Monocytes % 3.9 Eosinophils % 2.8 Basophils % 0.2 Nucleated Red Blood Cells % 0.0 Neutrophils # 15.2 H Lymphocytes # 1.0 Monocytes # 0.7 Eosinophils # 0.5 Basophils # 0.0 Nucleated Red Blood Cells # 0.0 Medications Medications Current Medications Acetaminophen (Tylenol Tab) 650 mg Q6H PRN PEG PAIN LEVEL 1-3 OR FEVER Last administered on 12/04/16 08:03; Admin Dose 650 MG; Start 11/30/16 at 05:00 Morphine Sulfate (morphine) 2 mg Q4H PRN IV PAIN LEVEL 7-10 Last administered on 12/04/16 04:55; Admin Dose 2 MG; Start 11/30/16 at 05:00 Miscellaneous Information 1 ea NOTE XX ; Start 11/30/16 at 05:00 Glucose (Glutose) 15 gm Q15M PRN PO DECREASED GLUCOSE; Start 11/30/16 at 05:00 Glucose (Glutose) 22.5 gm Q15M PRN PO DECREASED GLUCOSE; Start 11/30/16 at 05: 00 Dextrose (D50w Syringe) 25 ml Q15M PRN IV DECREASED GLUCOSE; Start 11/30/16 at 05:00 Dextrose (D50w Syringe) 50 ml Q15M PRN IV DECREASED GLUCOSE; Start 11/30/16 at 05:00 Glucagon (Glucagen) 1 mg Q15M PRN IM DECREASED GLUCOSE; Start 11/30/16 at 05:00 Glucose (Glutose) 15 gm Q15M PRN BUCCAL DECREASED GLUCOSE; Start 11/30/16 at 05 :00 Famotidine (Pepcid Iv) 20 mg DAILY IV Last administered on 12/04/16 08:05; Admin Dose 20 MG; Start 11/30/16 at 09:00 Metoprolol Tartrate (Lopressor) 25 mg BID GTB Last administered on 12/04/16 08 :06; Admin Dose 25 MG; Start 12/01/16 at 12:00 Metoprolol Tartrate (Lopressor) 2.5 mg Q2H PRN IV heart rate over 110; Start at 12:00 Miscellaneous Information (Pending Santyl Order For Wound Care) This patient anton... PRN PRN XX WOUND CARE; Start 12/02/16 at 11:30 Collagenase (Santyl) 1 applic DAILY TOP Last administered on 12/04/16 08:05; Admin Dose 1 APPLIC; Start 12/02/16 at 12:00 Collagenase (Santyl) 1 applic DAILY PRN TOP PER WOUND CARE ORDERS; Start at 11:30 Mupirocin 1 applic 1 applic BID TOP Last administered on 12/04/16 08:04; Admin Dose 1 APPLIC; Start 12/02/16 at 21:00; Stop 12/16/16 at 20:59 Imipenem/ Cilastatin Sodium 100 ml @ 100 mls/hr Q8 IVPB Last administered on 05:03; Admin Dose 100 MLS/HR; Start 12/03/16 at 10:00 Vancomycin HCl/ Sodium Chloride (Vancocin/NS) 250 ml @ 83.333 mls/ hr Q24H IVPB Last administered on 12/04/16 04:55; Admin Dose 83.333 MLS/HR; Start at 05:00 MARIA ELENA COLLADO Dec 04, 2016 12:23
[2016-12-04 12:27] LABS: POTASSIUM 3.5 mmol/L (3.5-5.1)
[2016-12-04 12:30] LABS: CREATININE 0.56 mg/dl (0.61-1.24)
[2016-12-04 12:31] LABS: CALCIUM 8.8 mg/dl (8.4-10.2); MAGNESIUM 1.9 mg/dl (1.7-2.5)
--- NOTE | 2016-12-04 12:54 | RADRPT ---
PROCEDURE: CT Chest with contrast. CLINICAL INDICATION: Pneumonia. Consolidation. TECHNIQUE: CT scan of the chest with contrast was performed on a multidetector high-resolution CT scanner. The patient was scanned following the uncomplicated intravenous administration of 100 cc o f Omnipaque-300 contrast. Coronal and sagittal reformatted images were obtained from the axial sour ce images. Images were reviewed on a high-resolution PACS workstation. The total exam CTDI equals 5. 68, 9.33 mGy and the total exam DLP equals 515.08 mGy-cm. One or more of the following dose reduction techniques were used: - Automated exposure control. - Adjustment of the mA and/or kV according to patient size. - Use of iterative reconstruction technique. COMPARISON: None available FINDINGS: Dense consolidation is seen throughout the lungs, worse in the right upper and lower lung. Multifoc al dense patchy consolidation is seen throughout consistent with bilateral diffuse pneumonia. Subtl e mucus debris is seen within the lower lobe bronchial airways bilaterally. Tracheostomy tube is se en in place in good location within the trachea above the nehemiah. Tiny reactive effusions are seen w ithin the lung bases. There is no pneumothorax. No underlying mass lesion is identified.. The mediastinum is remarkable for diffuse scattered mediastinal adenopathy and bilateral hilar adeno marco. The vascular structures of the mediastinum are normal in course and caliber. Aortic vascula r calcifications and coronary artery calcifications are present. The heart size is normal without e vidence for pericardial thickening or effusion. Dense PICC line is seen with the tip in the superior vena cava. The axillary regions, subpectoral regions, and supraclavicular regions are remarkable for significan t left supraclavicular lymphadenopathy. Mild adenopathy in the right supraclavicular space is seen a s well. The surrounding chest wall is unremarkable. Imaging obtained through the upper abdomen reve als no acute abnormality. The surrounding osseous structures are remarkable for degenerative spondylosis of the spine. No ost eolytic or osteoblastic lesion is detected. 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 IMPRESSION: 1. Severe dense confluent multifocal consolidation scattered throughout the lungs consistent with w idespread diffuse pneumonia. 2. Extensive mediastinal and hilar adenopathy with adenopathy extending to the supraclavicular barbara l stations bilaterally. 3. Tiny layering effusions within the posterior lung bases bilaterally. 4. Tracheostomy tube in place, in good location within the trachea above the nehemiah. 5. Left-sided PICC line in good position with the tip in the superior vena cava. 6. 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 RPTAT: HMJB .Smith Blackmon MD, Date Time Electronically viewed and signed by .Smith Blackmon MD, on 12/04/2016 12:53 .B/
--- NOTE | 2016-12-04 13:16 | PN ---
Date/Time of Note Date/Time of Note DATE: 12/04/16 TIME: 12:57 Assessment/Plan VTE Prophylaxis VTE Prophylaxis Intervention: SCD's Lines/Catheters IV Catheter Type (from Nrsg): PICC Line Central line still needed: Yes (for iV access) Urinary Cath still in place: Yes Reason Cath still needed: other (indicate) (to monitor UOP ) Assessment/Plan Assessment/Plan 81yo man with: 1. Sepsis, Bilateral Pneumonia, HCAP vs VAP, CT chest with severe bilateral PNA and CT neck with OA WBC trended down to 17K and afebrile x 24 hrs now Sputum with MRSA and on Vanco Continue Imipenem and Vanco and appreciate ID recs Patient seems more comfortable, alert and responsive, very pleasant. 2. Chronic vent-dependent respiratory failure, stable on Vent, oxygenating well. Per family has been able to get off vent and have some puree with trach capped at subacute facility. Continue Vancomycin and Imipenem Appreciate Pulmonary recommendations 3. Hypokalemia/Hypomagnesemia: Repleting Mag and K prn 4. Severe Anemia, possible GI bleeding, Unclear source for now. Hb a 7.8, will repeat in AM and transfuse if Hb<7.5. No evidence for active bleeding for now. Resume Iron supplement GI consult if needed 5. Elevated troponins in setting of a fib with RVR and sepsis , HR controlled with Bblocker, will titrate up. Appreciate Cardiology recommendations No anticoag due to Anemia 6. Neck pain but actually no rigidity as patient with good ROM but c spine pain : CT neck with severe OA, no other acute findings. 7. MRSA nares: Bactroban, on Vancomycin already 8. Hypertension: titrating Metoprolol up to 50 mg po bid Prophylaxis: Continue SCDs and Famotidine Disposition: On contact isolation and Telemetry. Continue current care. DNR Subjective 24 Hr Interval Summary Free Text/Dictation Patient doing better today and WBC seems to be trending down Afebrile x 24 hrs Exam/Review of Systems Vital Signs Vitals Vital Signs Date Time Temp Pulse Resp B/P Pulse Ox O2 Delivery O2 Flow Rate FiO2 12/04/16 12:13 73 12/04/16 11:24 98.0 19 162/76 98 12/04/16 05:48 40 12/02/16 14:59 Mechanical Ventilator Trach Collar Intake and Output 412/03/16 12/04/16 15:00 23:00 07:00 Intake Total 100 ml 120 ml 1150 ml Output Total 800 ml 1100 ml Balance 100 ml -680 ml 50 ml Exam Constitutional: alert, frail, oriented, other (trached and on vent for now ) Cardiovascular: nl pulses, regular rate and rhythm Gastrointestinal: non-tender, soft Musculoskeletal: nl extremities to inspection Extremities: normal pulses, other (no edema, clubbing oe cyanosis ) Neurological: SWAGING 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 ADJUSTER II-XII 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, nl mental status, other (trached an vented ) Results Result Diagram: 12/04/16 1206 12/04/16 1206 Results 24 hrs Laboratory Tests Test 12/04/16 12:06 White Blood Count 17.6 #H Red Blood Count 2.77 L Hemoglobin 7.9 L Hematocrit 24.9 L Mean Corpuscular Volume 89.9 Mean Corpuscular Hemoglobin 28.5 L Mean Corpuscular Hemoglobin Concent 31.7 L Red Cell Distribution Width 15.4 H Platelet Count 264 Mean Platelet Volume 9.5 Neutrophils % 86.2 H Lymphocytes % 5.9 L Monocytes % 3.9 Eosinophils % 2.8 Basophils % 0.2 Nucleated Red Blood Cells % 0.0 Neutrophils # 15.2 H Lymphocytes # 1.0 Monocytes # 0.7 Eosinophils # 0.5 Basophils # 0.0 Nucleated Red Blood Cells # 0.0 Sodium Level 141 Potassium Level 3.5 Chloride Level 104 Carbon Dioxide Level 29 Anion Gap 12 Blood Urea Nitrogen 25 H Creatinine 0.56 L Glucose Level 137 Calcium Level 8.8 Magnesium Level 1.9 Medications Medications Current Medications Acetaminophen (Tylenol Tab) 650 mg Q6H PRN PEG PAIN LEVEL 1-3 OR FEVER Last administered on 12/04/16 08:03; Admin Dose 650 MG; Start 11/30/16 at 05:00 Morphine Sulfate (morphine) 2 mg Q4H PRN IV PAIN LEVEL 7-10 Last administered on 12/04/16 04:55; Admin Dose 2 MG; Start 11/30/16 at 05:00 Miscellaneous Information 1 ea NOTE XX ; Start 11/30/16 at 05:00 Glucose (Glutose) 15 gm Q15M PRN PO DECREASED GLUCOSE; Start 11/30/16 at 05:00 Glucose (Glutose) 22.5 gm Q15M PRN PO DECREASED GLUCOSE; Start 11/30/16 at 05: 00 Dextrose (D50w Syringe) 25 ml Q15M PRN IV DECREASED GLUCOSE; Start 11/30/16 at 05:00 Dextrose (D50w Syringe) 50 ml Q15M PRN IV DECREASED GLUCOSE; Start 11/30/16 at 05:00 Glucagon (Glucagen) 1 mg Q15M PRN IM DECREASED GLUCOSE; Start 11/30/16 at 05:00 Glucose (Glutose) 15 gm Q15M PRN BUCCAL DECREASED GLUCOSE; Start 11/30/16 at 05 :00 Famotidine (Pepcid Iv) 20 mg DAILY IV Last administered on 12/04/16 08:05; Admin Dose 20 MG; Start 11/30/16 at 09:00 Metoprolol Tartrate (Lopressor) 25 mg BID GTB Last administered on 12/04/16 08 :06; Admin Dose 25 MG; Start 12/01/16 at 12:00 Metoprolol Tartrate (Lopressor) 2.5 mg Q2H PRN IV heart rate over 110; Start at 12:00 Miscellaneous Information (Pending Santyl Order For Wound Care) This patient anton... PRN PRN XX WOUND CARE; Start 12/02/16 at 11:30 Collagenase (Santyl) 1 applic DAILY TOP Last administered on 12/04/16 08:05; Admin Dose 1 APPLIC; Start 12/02/16 at 12:00 Collagenase (Santyl) 1 applic DAILY PRN TOP PER WOUND CARE ORDERS; Start at 11:30 Mupirocin 1 applic 1 applic BID TOP Last administered on 12/04/16 08:04; Admin Dose 1 APPLIC; Start 12/02/16 at 21:00; Stop 12/16/16 at 20:59 Imipenem/ Cilastatin Sodium 100 ml @ 100 mls/hr Q8 IVPB Last administered on 05:03; Admin Dose 100 MLS/HR; Start 12/03/16 at 10:00 Vancomycin HCl/ Sodium Chloride (Vancocin/NS) 250 ml @ 83.333 mls/ hr Q24H IVPB Last administered on 12/04/16 04:55; Admin Dose 83.333 MLS/HR; Start at 05:00 Procedures Procedures PROCEDURE: CT Chest with contrast. CLINICAL INDICATION: Pneumonia. Consolidation. TECHNIQUE: CT scan of the chest with contrast was performed on a multidetector high-resolution CT scanner. The patient was scanned following the uncomplicated intravenous administration of 100 cc of Omnipaque-300 contrast. Coronal and sagittal reformatted images were obtained from the axial source images. Images were reviewed on a high-resolution PACS workstation. The total exam CTDI equals 5.68, 9.33 mGy and the total exam DLP equals 515.08 mGy- cm. One or more of the following dose reduction techniques were used: - Automated exposure control. - Adjustment of the mA and/or kV according to patient size. - Use of iterative reconstruction technique. COMPARISON: None available FINDINGS: Dense consolidation is seen throughout the lungs, worse in the right upper and lower lung. Multifocal dense patchy consolidation is seen throughout consistent with bilateral diffuse pneumonia. Subtle mucus debris is seen within the lower lobe bronchial airways bilaterally. Tracheostomy tube is seen in place in good location within the trachea above the nehemiah. Tiny reactive effusions are seen within the lung bases. There is no pneumothorax. No underlying mass lesion is identified.. The mediastinum is remarkable for diffuse scattered mediastinal adenopathy and bilateral hilar adenopathy. The vascular structures of the mediastinum are normal in course and caliber. Aortic vascular calcifications and coronary artery calcifications are present. The heart size is normal without evidence for pericardial thickening or effusion. Dense PICC line is seen with the tip in the superior vena cava. The axillary regions, subpectoral regions, and supraclavicular regions are remarkable for significant left supraclavicular lymphadenopathy. Mild adenopathy in the right supraclavicular space is seen as well. The surrounding chest wall is unremarkable. Imaging obtained through the upper abdomen reveals no acute abnormality. The surrounding osseous structures are remarkable for degenerative spondylosis of the spine. No osteolytic or osteoblastic lesion is detected. 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 IMPRESSION: 1. Severe dense confluent multifocal consolidation scattered throughout the lungs consistent with widespread diffuse pneumonia. 2. Extensive mediastinal and hilar adenopathy with adenopathy extending to the supraclavicular laura stations bilaterally. 3. Tiny layering effusions within the posterior lung bases bilaterally. 4. Tracheostomy tube in place, in good location within the trachea above the nehemiah. 5. Left-sided PICC line in good position with the tip in the superior vena cava. 6. 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 RPTAT: HMJB .Smith Blackmon MD, Date Time Electronically viewed and signed by .Smith Blackmon MD, on 12/04/2016 12:53 CHARLETTE RUTHERFORD F Dec 04, 2016 13:08
--- NOTE | 2016-12-04 13:54 | RADRPT ---
PROCEDURE: CT Neck with contrast CLINICAL INDICATION: Neck pain. TECHNIQUE: CT of the neck was performed following the intravenous administration of 100 cc of Visi paque 320 IV Contrast. Axial images were obtained through the neck with multiplanar reformatted imag es generated from the axial acquired data. The administered radiation dose was CTDI vol = 5.68, 9.3 3 mGy, DLP = 173.21, 341.87 mGy-cm. One or more of the following dose reduction techniques were used : Automated exposure control, Adjustment of the mA and/or kV according to patient size, or Use of it erative reconstruction technique. COMPARISON: There are no similar studies submitted for comparison. FINDINGS: Evaluation is mildly limited due to motion degradation. SKULL: The visualized portions of the brain are grossly unremarkable. There is mild to moderate left sphenoid sinus mucosal thickening. The bilateral mastoid air cells are within normal limits. PAROTID GLANDS: Unremarkable. SUBMANDIBULAR GLANDS: Unremarkable. THYROID GLAND: Unremarkable. VASCULATURE: The bilateral vascular structures are patent. There is moderate atheroma within the eto ateral common carotid arteries causing mild stenosis. There are extensive vascular calcifications w ithin the bilateral carotid bulbs causing severe right and moderate to severe left internal coronary stenosis. LYMPH NODES: There are mildly enlarged nonspecific left supraclavicular lymph nodes (image 75 series 3) with the largest measuring 1.8 x 0.9 cm. Otherwise there are small lymph nodes are identified i n the neck in levels I-V which are not pathologically enlarged or necrotic. The lymph nodes are rela tively bilateral and symmetric in distribution. AERODIGESTIVE TRACT: No primary aerodigestive tract lesion is identified. A tracheostomy tube is pre sent. There is dilatation of the adjacent trachea. There is mild layering fluid within the trachea within this region. There is also mild fluid layering within the hypopharynx. There is mild subcut aneous air superior to the tracheostomy tube (image 107 series 3) inferior to the cricoid cartilage which may be postoperative. THORAX: Please refer to the CT of the chest report from the same day. OSSEOUS STRUCTURES: No destructive lytic or blastic osseous lesion is identified. There are mild deg enerative changes within the cervical spine. IMPRESSION: Evaluation is mildly limited due to motion degradation. 1. No mass or fluid collection given limitations. 2. Nonspecific mildly enlarged left supraclavicular lymph nodes measuring up to 1.8 x 0.9 cm. 3. Tracheostomy tube with mild fluid layering within the adjacent dilated trachea. There is also mi ld fluid layering within the hypopharynx. There is mild subcutaneous air superior to the tracheostom y tube/inferior to the cricoid cartilage which may be postoperative. 4. 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 Further findings as detailed above. RPTAT: PP .Mihai Weiss MD, MD Date Time Electronically viewed and signed by .Mihai Weiss MD, on 12/04/2016 13:53 .F/
--- NOTE | 2016-12-04 17:41 | PN ---
DATE: 12/04/2016 SUBJECTIVE: No acute changes overnight. The patient is lying comfortably in bed. He is awake, com municates and his at bedside. WBC today 17.6, platelets 264, neutrophils went down to 86.2. B UN 25, creatinine 0.56. INDWELLINGS: Trach, PEG, Cherry. Left upper extremity PICC line placed on 12/01/2016. DIAGNOSTICS: CT of the chest from yesterday revealed severe multifocal consolidation consistent wit h diffuse pneumonia. ANTIMICROBIALS: Patient is on: 1. Vancomycin. 2. Imipenem. 3. He is also getting topical Bactroban to nares. PHYSICAL EXAMINATION: GENERAL: Fragile, well-developed, elderly man who is awake, in no distress. HEENT: Head atraumatic, normocephalic. Sclerae anicteric. Buccal mucosa dry. NECK: Supple. Tracheostomy present. CHEST: Rise symmetrical. Breath sounds diminished to bases. HEART: S1, S2. ABDOMEN: Soft, bowel tones present. EXTREMITIES: Without cyanosis or edema. ASSESSMENT: 1. Multifocal bilateral pneumonia. 2. Chronic respiratory failure. 3. Persistent leukocytosis, slowly trending down. 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 5. Diabetes. 6. Coronary artery disease. PLAN: The patient is clinically stable, still with copious secretions cultures pending. He is on a ppropriate antimicrobials. Pulmonary on case. Continue present care, aggressive pulmonary toilet. Dictated By: ELI VALDEZ URBAN SOCIOLOGIST for JANICE CASTILLO/MENDOZA Conf#: [id number] DID#: [id number]
[2016-12-05] VITALS (24 sets, daily range): BP systolic 77–187; BP diastolic 50–92; PULSE 76–90; RESP 18–26
[2016-12-05] MEDS: morphine 2 MG INJ IV PRN ×4 (03:51→21:03)
[2016-12-05] MEDS: VANCOMYCIN 1.25 GM in SOD CHLORIDE 0.9% 250 ML IVPB SCH (04:17)
[2016-12-05] MEDS: IMIPENEM-CILAST 500MG IV (PMX) 100 ML IVPB SCH ×3 (06:03→21:04)
[2016-12-05] MEDS: ACETAMINOPHEN 325 MG TAB PEG PRN ×2 (06:04→15:23)
[2016-12-05 07:05] LABS: ADD SCAN DIFF NO; BASOPHILS % 0.2 % (0.0-2.0); EOSINOPHILS # 0.7 10^3/ul (0.0-0.5); EOSINOPHILS % 4.2 % (0.0-7.0); HEMATOCRIT 26.8 % (42.0-52.0); HEMOGLOBIN 8.1 g/dl (14.0-18.0); LYMPHOCYTES # 1.1 10^3/ul (0.8-2.9); LYMPHOCYTES % 6.6 % (15.0-51.0); MEAN CORPUSCULAR HEMOGLOBIN 27.4 pg (29.0-33.0); MEAN CORPUSCULAR HGB CONC 30.2 g/dl (32.0-37.0); MEAN CORPUSCULAR VOLUME 90.5 fl (82.0-101.0); MEAN PLATELET VOLUME 10.2 fl (7.4-10.4); MONOCYTE # 0.8 10^3/ul (0.3-0.9); MONOCYTES % 4.4 % (0.0-11.0); NEUTROPHIL # 14.1 10^3/ul (1.6-7.5); NEUTROPHILS % 83.7 % (39.0-77.0); PLATELET COUNT 287 10^3/UL (140-415); RED BLOOD COUNT 2.96 10^6/ul (4.70-6.10); RED CELL DISTRIBUTION WIDTH 15.7 % (11.5-14.5); WHITE BLOOD COUNT 16.9 10^3/ul (4.8-10.8)
[2016-12-05 07:07] LABS: POTASSIUM 3.5 mmol/L (3.5-5.1)
[2016-12-05 07:09] LABS: CREATININE 0.54 mg/dl (0.61-1.24)
[2016-12-05 07:10] LABS: CALCIUM 8.8 mg/dl (8.4-10.2)
[2016-12-05 07:22] LABS: MAGNESIUM 1.8 mg/dl (1.7-2.5); PHOSPHORUS 3.7 mg/dl (2.5-4.9)
[2016-12-05] MEDS: MUPIROCIN 2% 22 GM OINT TOP SCH ×2 (09:06→21:04)
[2016-12-05] MEDS: METOPROLOL 25 MG TAB GTB SCH ×2 (09:06→21:04)
[2016-12-05] MEDS: FAMOTIDINE 20 MG TAB GTB SCH (09:06)
[2016-12-05] MEDS: COLLAGENASE 30 GM TUBE TOP SCH (09:07)
[2016-12-05] MEDS ORDERED: SOD CHLORIDE 0.9% 250 ML IV* ONE (09:23)
[2016-12-05] MEDS ORDERED: MAGNESIUM SULFATE 2 GM/50 ML 50 ML IVPB ONE (09:30)
[2016-12-05] MEDS ORDERED: POTASSIUM CHLORIDE 20 MEQ POWDER FOR ORAL SOLN JT ONE (09:30)
--- NOTE | 2016-12-05 12:11 | CONS ---
Date/Time of Note Date/Time of Note DATE: 12/05/16 TIME: 12:10 Assessment/Plan Assessment/Plan Additional Assessment/Plan Ventilator settings; AC of 18, tidal volume 550, PEEP of 5, 40% FiO2. Assessment recommendations; next 1. Patient admitted for severe right lower lobe pneumonia currently on broad- spectrum antibiotic coverage. 2. History of quadriplegia. Patient remains ventilator dependent. Continue current treatment. Consultation Date/Type/Reason Admit Date/Time Nov 30, 2016 at 04:54 Initial Consult Date 12/01/16 Type of Consultation: Pulmonary/critical care Referring Provider: NEGRITO PEREZ M.D. 24 HR Interval Summary Free Text/Dictation Patient condition is stable. Remains awake alert. Has remained hemodynamically stable. General exam; elderly male, on ventilator via his ostomy currently in no distress. Exam/Review of Systems Vital Signs Vitals Vital Signs Date Time Temp Pulse Resp B/P Pulse Ox O2 Delivery O2 Flow Rate FiO2 12/05/16 11:33 82 18 98 40 12/05/16 08:18 98.5 186/82 12/05/16 04:15 Mechanical Ventilator Intake and Output 12/04/16 12/04/16 12/05/16 15:00 23:00 07:00 Intake Total 920 ml 1120 ml Output Total 1200 ml 1600 ml Balance -280 ml -480 ml Exam HEENT exam is; supple neck, no JVD. No lymphadenopathy. Midline trachea. No thyromegaly. Patient is edentulous. Tracheostomy placed with clean insertion site. Pupils are midsize and reactive to light. Chest examined; diminished breath sound right lower lobe. Left lung and right upper lobes are clear. S1-S2 audible, no murmurs. Regular rhythm. Abdomen exam; soft, scaphoid, nontender. No organomegaly. G-tube in place. Bowel sounds audible. Extremity exam; no peripheral edema. 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 Results Result Diagram: 12/05/1615 12/05/1615 Results 24 hrs Laboratory Tests Test 12/05/16 06:15 White Blood Count 16.9 H Red Blood Count 2.96 L Hemoglobin 8.1 L Hematocrit 26.8 L Mean Corpuscular Volume 90.5 Mean Corpuscular Hemoglobin 27.4 L Mean Corpuscular Hemoglobin Concent 30.2 L Red Cell Distribution Width 15.7 H Platelet Count 287 Mean Platelet Volume 10.2 Neutrophils % 83.7 H Lymphocytes % 6.6 L Monocytes % 4.4 Eosinophils % 4.2 Basophils % 0.2 Nucleated Red Blood Cells % 0.0 Neutrophils # 14.1 H Lymphocytes # 1.1 Monocytes # 0.8 Eosinophils # 0.7 H Basophils # 0.0 Nucleated Red Blood Cells # 0.0 Sodium Level 140 Potassium Level 3.5 Chloride Level 103 Carbon Dioxide Level 28 Anion Gap 13 Blood Urea Nitrogen 25 H Creatinine 0.54 L Glucose Level 146 Calcium Level 8.8 Phosphorus Level 3.7 Magnesium Level 1.8 Medications Medications Current Medications Acetaminophen (Tylenol Tab) 650 mg Q6H PRN PEG PAIN LEVEL 1-3 OR FEVER Last administered on 12/05/16 06:04; Admin Dose 650 MG; Start 11/30/16 at 05:00 Morphine Sulfate (morphine) 2 mg Q4H PRN IV PAIN LEVEL 7-10 Last administered on 12/05/16 09:08; Admin Dose 2 MG; Start 11/30/16 at 05:00 Miscellaneous Information 1 ea NOTE XX ; Start 11/30/16 at 05:00 Glucose (Glutose) 15 gm Q15M PRN PO DECREASED GLUCOSE; Start 11/30/16 at 05:00 Glucose (Glutose) 22.5 gm Q15M PRN PO DECREASED GLUCOSE; Start 11/30/16 at 05: 00 Dextrose (D50w Syringe) 25 ml Q15M PRN IV DECREASED GLUCOSE; Start 11/30/16 at 05:00 Dextrose (D50w Syringe) 50 ml Q15M PRN IV DECREASED GLUCOSE; Start 11/30/16 at 05:00 Glucagon (Glucagen) 1 mg Q15M PRN IM DECREASED GLUCOSE; Start 11/30/16 at 05:00 Glucose (Glutose) 15 gm Q15M PRN BUCCAL DECREASED GLUCOSE; Start 11/30/16 at 05 :00 Metoprolol Tartrate (Lopressor) 2.5 mg Q2H PRN IV heart rate over 110; Start at 12:00 Miscellaneous Information (Pending Santyl Order For Wound Care) This patient anton... PRN PRN XX WOUND CARE; Start 12/02/16 at 11:30 Collagenase (Santyl) 1 applic DAILY TOP Last administered on 12/05/16 09:07; Admin Dose 1 APPLIC; Start 12/02/16 at 12:00 Collagenase (Santyl) 1 applic DAILY PRN TOP PER WOUND CARE ORDERS; Start at 11:30 Mupirocin 1 applic 1 applic BID TOP Last administered on 12/05/16 09:06; Admin Dose 1 APPLIC; Start 12/02/16 at 21:00; Stop 12/16/16 at 20:59 Imipenem/ Cilastatin Sodium 100 ml @ 100 mls/hr Q8 IVPB Last administered on 06:03; Admin Dose 100 MLS/HR; Start 12/03/16 at 10:00 Vancomycin HCl/ Sodium Chloride (Vancocin/NS) 250 ml @ 83.333 mls/ hr Q24H IVPB Last administered on 12/05/16 04:17; Admin Dose 83.333 MLS/HR; Start at 05:00 Metoprolol Tartrate (Lopressor) 50 mg BID GTB Last administered on 12/05/16 09 :06; Admin Dose 50 MG; Start 12/04/16 at 21:00 Famotidine (Pepcid) 20 mg DAILY GTB Last administered on 12/05/16 09:06; Admin Dose 20 MG; Start 12/05/16 at 09:00 MARIA ELENA COLLADO Dec 05, 2016 12:11
--- NOTE | 2016-12-05 12:15 | PN ---
Date/Time of Note Date/Time of Note DATE: 12/05/16 TIME: 12:00 Assessment/Plan VTE Prophylaxis VTE Prophylaxis Intervention: SCD's Lines/Catheters IV Catheter Type (from Nrsg): PICC Line Central line still needed: Yes (for IV acess ) Urinary Cath still in place: Yes Reason Cath still needed: other (indicate) (to monitor UOP ) Assessment/Plan Assessment/Plan 81yo man with: 1. Sepsis, Bilateral Pneumonia, HCAP vs VAP, CT chest with severe bilateral PNA and CT neck with OA WBC trending down slowly on new regimen of abx and and afebrile x 48 hrs Sputum with MRSA, on Vanco Continue Imipenem and Vanco and appreciate ID recs Patient seems more comfortable every day so far, alert and responsive, very pleasant. 2. Chronic vent-dependent respiratory failure, stable on Vent, oxygenating well. Per family has been able to get off vent and have some puree with trach capped at subacute facility. Continue Vancomycin and Imipenem Appreciate Pulmonary recommendations 3. Hypokalemia/Hypomagnesemia: Repleting Mag and K prn 4. Severe Anemia, possible GI bleeding, Unclear source for now. Hb stable at 8.1, will give 1 unit pRBC and continue. No evidence for active bleeding for now. Resume Iron supplement. 5. Elevated troponins in setting of a fib with RVR and sepsis, CAD HR controlled with Bblocker, up to 50 mg po bid. Appreciate Cardiology recommendations. No anticoag due to Anemia 6. Neck pain but actually no rigidity as patient with good ROM but c spine pain : CT neck with severe OA, no other acute findings. 7. MRSA nares: Bactroban, on Vancomycin already 8. Hypertension: Continue Metoprolol at 50 mg po bid and will add ARB or JEANNINE inhib for BP control Prophylaxis: Continue SCDs and Famotidine Disposition: On contact isolation and Telemetry. Continue current care. DNR Subjective 24 Hr Interval Summary Free Text/Dictation Patient remains stable, on Vent and tolerating TF Complaining of pain left leg at site of SCD Afebrile and WBC trending down slowly No acute bleeding, and Hb has been stable on low side, will give 1 unit pRBC today Exam/Review of Systems Vital Signs Vitals Vital Signs Date Time Temp Pulse Resp B/P Pulse Ox O2 Delivery O2 Flow Rate FiO2 12/05/16 11:33 82 18 98 40 12/05/16 08:18 98.5 186/82 12/05/16 04:15 Mechanical Ventilator Intake and Output 12/04/16 12/04/16 12/05/16 15:00 23:00 07:00 Intake Total 920 ml 1120 ml Output Total 1200 ml 1600 ml Balance -280 ml -480 ml Exam Constitutional: alert, oriented, well developed Neck: other (FROM, some chronic neck pain), supple Respiratory: diminished breath sounds (but improving ), other (on Vent ) Cardiovascular: irregular rhythm (A fib controlled ), nl pulses Gastrointestinal: non-tender, other (tolerating ), soft Musculoskeletal: muscle weakness (generalized ) Extremities: normal pulses, other (no edema, clubbing or cyanosis) 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, nl mental status (at baseline ), other ( generalized weakness ) Results Result Diagram: 12/05/16 0615 12/05/16 0615 Results 24 hrs Laboratory Tests Test 12/04/16 12:06 12/05/16 06:15 White Blood Count 17.6 #H 16.9 H Red Blood Count 2.77 L 2.96 L Hemoglobin 7.9 L 8.1 L Hematocrit 24.9 L 26.8 L Mean Corpuscular Volume 89.9 90.5 Mean Corpuscular Hemoglobin 28.5 L 27.4 L Mean Corpuscular Hemoglobin Concent 31.7 L 30.2 L Red Cell Distribution Width 15.4 H 15.7 H Platelet Count 264 287 Mean Platelet Volume 9.5 10.2 Neutrophils % 86.2 H 83.7 H Lymphocytes % 5.9 L 6.6 L Monocytes % 3.9 4.4 Eosinophils % 2.8 4.2 Basophils % 0.2 0.2 Nucleated Red Blood Cells % 0.0 0.0 Neutrophils # 15.2 H 14.1 H Lymphocytes # 1.0 1.1 Monocytes # 0.7 0.8 Eosinophils # 0.5 0.7 H Basophils # 0.0 0.0 Nucleated Red Blood Cells # 0.0 0.0 Sodium Level 141 140 Potassium Level 3.5 3.5 Chloride Level 104 103 Carbon Dioxide Level 29 28 Anion Gap 12 13 Blood Urea Nitrogen 25 H 25 H Creatinine 0.56 L 0.54 L Glucose Level 137 146 Calcium Level 8.8 8.8 Magnesium Level 1.9 1.8 Phosphorus Level 3.7 Medications Medications Current Medications Acetaminophen (Tylenol Tab) 650 mg Q6H PRN PEG PAIN LEVEL 1-3 OR FEVER Last administered on 12/05/16 06:04; Admin Dose 650 MG; Start 11/30/16 at 05:00 Morphine Sulfate (morphine) 2 mg Q4H PRN IV PAIN LEVEL 7-10 Last administered on 12/05/16 09:08; Admin Dose 2 MG; Start 11/30/16 at 05:00 Miscellaneous Information 1 ea NOTE XX ; Start 11/30/16 at 05:00 Glucose (Glutose) 15 gm Q15M PRN PO DECREASED GLUCOSE; Start 11/30/16 at 05:00 Glucose (Glutose) 22.5 gm Q15M PRN PO DECREASED GLUCOSE; Start 11/30/16 at 05: 00 Dextrose (D50w Syringe) 25 ml Q15M PRN IV DECREASED GLUCOSE; Start 11/30/16 at 05:00 Dextrose (D50w Syringe) 50 ml Q15M PRN IV DECREASED GLUCOSE; Start 11/30/16 at 05:00 Glucagon (Glucagen) 1 mg Q15M PRN IM DECREASED GLUCOSE; Start 11/30/16 at 05:00 Glucose (Glutose) 15 gm Q15M PRN BUCCAL DECREASED GLUCOSE; Start 11/30/16 at 05 :00 Metoprolol Tartrate (Lopressor) 2.5 mg Q2H PRN IV heart rate over 110; Start at 12:00 Miscellaneous Information (Pending Santyl Order For Wound Care) This patient anton... PRN PRN XX WOUND CARE; Start 12/02/16 at 11:30 Collagenase (Santyl) 1 applic DAILY TOP Last administered on 12/05/16 09:07; Admin Dose 1 APPLIC; Start 12/02/16 at 12:00 Collagenase (Santyl) 1 applic DAILY PRN TOP PER WOUND CARE ORDERS; Start at 11:30 Mupirocin 1 applic 1 applic BID TOP Last administered on 12/05/16 09:06; Admin Dose 1 APPLIC; Start 12/02/16 at 21:00; Stop 12/16/16 at 20:59 Imipenem/ Cilastatin Sodium 100 ml @ 100 mls/hr Q8 IVPB Last administered on 06:03; Admin Dose 100 MLS/HR; Start 12/03/16 at 10:00 Vancomycin HCl/ Sodium Chloride (Vancocin/NS) 250 ml @ 83.333 mls/ hr Q24H IVPB Last administered on 12/05/16 04:17; Admin Dose 83.333 MLS/HR; Start at 05:00 Metoprolol Tartrate (Lopressor) 50 mg BID GTB Last administered on 12/05/16 09 :06; Admin Dose 50 MG; Start 12/04/16 at 21:00 Famotidine (Pepcid) 20 mg DAILY GTB Last administered on 12/05/16 09:06; Admin Dose 20 MG; Start 12/05/16 at 09:00 CHARLETTE RUTHERFORD Dec 05, 2016 12:10
--- NOTE | 2016-12-05 15:32 | CONS ---
Date/Time of Note Date/Time of Note DATE: 12/05/16 TIME: 15:30 Assessment/Plan Assessment/Plan Chief Complaint/Hosp Course SUBJECTIVE: No acute changes overnight. The patient is alert, lying comfortably in bed. Family at bedside INDWELLINGS: Trach, PEG, Cherry. Left upper extremity PICC line placed on 12/01. DIAGNOSTICS: CT of the chest from yesterday revealed severe multifocal consolidation consistent with diffuse pneumonia. ANTIMICROBIALS: Patient is on: 1. Vancomycin. 2. Imipenem. 3. Bactroban to nares. PHYSICAL EXAMINATION: GENERAL: Fragile, well-developed, elderly man who is awake, in no distress. HEENT: Head atraumatic, normocephalic. Sclerae anicteric. Buccal mucosa dry. NECK: Supple. Tracheostomy present. CHEST: Rise symmetrical. Breath sounds diminished to bases. HEART: S1, S2. ABDOMEN: Soft, bowel tones present. EXTREMITIES: Without cyanosis or edema. ASSESSMENT: 1. Multifocal bilateral pneumonia. 2. Chronic respiratory failure. 3. Persistent leukocytosis, slowly trending down. 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 5. Diabetes. 6. Coronary artery disease. PLAN: Stable, wbc decreasing, continue abx, pulmonary rec-s, aggressive pulmonary toilet. DW family/staff Problems: Consultation Date/Type/Reason Admit Date/Time Nov 30, 2016 at 04:54 Initial Consult Date 12/01/16 Type of Consultation: ID Referring Provider: CHARLETTE RUTHERFORD Exam/Review of Systems Vital Signs Vitals Vital Signs Date Time Temp Pulse Resp B/P Pulse Ox O2 Delivery O2 Flow Rate FiO2 12/05/16 13:55 101 23 100 40 12/05/16 12:17 97.5 187/92 12/05/16 04:15 Mechanical Ventilator Intake and Output 12/04/16 12/04/16 12/05/16 15:00 23:00 07:00 Intake Total 920 ml 1120 ml Output Total 1200 ml 1600 ml Balance -280 ml -480 ml Results Result Diagram: 12/05/16 0615 12/05/16 0615 Results 24 hrs Laboratory Tests Test 12/05/16 06:15 White Blood Count 16.9 H Red Blood Count 2.96 L Hemoglobin 8.1 L Hematocrit 26.8 L Mean Corpuscular Volume 90.5 Mean Corpuscular Hemoglobin 27.4 L Mean Corpuscular Hemoglobin Concent 30.2 L Red Cell Distribution Width 15.7 H Platelet Count 287 Mean Platelet Volume 10.2 Neutrophils % 83.7 H Lymphocytes % 6.6 L Monocytes % 4.4 Eosinophils % 4.2 Basophils % 0.2 Nucleated Red Blood Cells % 0.0 Neutrophils # 14.1 H Lymphocytes # 1.1 Monocytes # 0.8 Eosinophils # 0.7 H Basophils # 0.0 Nucleated Red Blood Cells # 0.0 Sodium Level 140 Potassium Level 3.5 Chloride Level 103 Carbon Dioxide Level 28 Anion Gap 13 Blood Urea Nitrogen 25 H Creatinine 0.54 L Glucose Level 146 Calcium Level 8.8 Phosphorus Level 3.7 Magnesium Level 1.8 Medications Medications Current Medications Acetaminophen (Tylenol Tab) 650 mg Q6H PRN PEG PAIN LEVEL 1-3 OR FEVER Last administered on 12/05/16 15:23; Admin Dose 650 MG; Start 11/30/16 at 05:00 Morphine Sulfate (morphine) 2 mg Q4H PRN IV PAIN LEVEL 7-10 Last administered on 12/05/16 15:24; Admin Dose 2 MG; Start 11/30/16 at 05:00 Miscellaneous Information 1 ea NOTE XX ; Start 11/30/16 at 05:00 Glucose (Glutose) 15 gm Q15M PRN PO DECREASED GLUCOSE; Start 11/30/16 at 05:00 Glucose (Glutose) 22.5 gm Q15M PRN PO DECREASED GLUCOSE; Start 11/30/16 at 05: 00 Dextrose (D50w Syringe) 25 ml Q15M PRN IV DECREASED GLUCOSE; Start 11/30/16 at 05:00 Dextrose (D50w Syringe) 50 ml Q15M PRN IV DECREASED GLUCOSE; Start 11/30/16 at 05:00 Glucagon (Glucagen) 1 mg Q15M PRN IM DECREASED GLUCOSE; Start 11/30/16 at 05:00 Glucose (Glutose) 15 gm Q15M PRN BUCCAL DECREASED GLUCOSE; Start 11/30/16 at 05 :00 Metoprolol Tartrate (Lopressor) 2.5 mg Q2H PRN IV heart rate over 110; Start at 12:00 Miscellaneous Information (Pending Santyl Order For Wound Care) This patient anton... PRN PRN XX WOUND CARE; Start 12/02/16 at 11:30 Collagenase (Santyl) 1 applic DAILY TOP Last administered on 12/05/16 09:07; Admin Dose 1 APPLIC; Start 12/02/16 at 12:00 Collagenase (Santyl) 1 applic DAILY PRN TOP PER WOUND CARE ORDERS; Start at 11:30 Mupirocin 1 applic 1 applic BID TOP Last administered on 12/05/16 09:06; Admin Dose 1 APPLIC; Start 12/02/16 at 21:00; Stop 12/16/16 at 20:59 Imipenem/ Cilastatin Sodium 100 ml @ 100 mls/hr Q8 IVPB Last administered on 13:47; Admin Dose 100 MLS/HR; Start 12/03/16 at 10:00 Vancomycin HCl/ Sodium Chloride (Vancocin/NS) 250 ml @ 83.333 mls/ hr Q24H IVPB Last administered on 12/05/16 04:17; Admin Dose 83.333 MLS/HR; Start at 05:00 Metoprolol Tartrate (Lopressor) 50 mg BID GTB Last administered on 12/05/16 09 :06; Admin Dose 50 MG; Start 12/04/16 at 21:00 Famotidine (Pepcid) 20 mg DAILY GTB Last administered on 12/05/16 09:06; Admin Dose 20 MG; Start 12/05/16 at 09:00 ELI VALDEZ NP Dec 05, 2016 15:32
[2016-12-05] MEDS: LOSARTAN 25 MG TAB PO SCH (21:03)
[2016-12-06] VITALS (27 sets, daily range): BP systolic 139–188; BP diastolic 63–97; PULSE 75–140; RESP 18–30
[2016-12-06] MEDS: morphine 2 MG INJ IV PRN ×3 (00:48→16:35)
[2016-12-06] MEDS: VANCOMYCIN 1.25 GM in SOD CHLORIDE 0.9% 250 ML IVPB SCH (04:12)
[2016-12-06] MEDS: IMIPENEM-CILAST 500MG IV (PMX) 100 ML IVPB SCH ×3 (05:37→21:26)
[2016-12-06 06:06] LABS: ADD SCAN DIFF NO
[2016-12-06 06:30] LABS: CREATININE 0.55 mg/dl (0.61-1.24); POTASSIUM 4.2 mmol/L (3.5-5.1)
[2016-12-06 07:03] LABS: MAGNESIUM 2.2 mg/dl (1.7-2.5); PHOSPHORUS 3.7 mg/dl (2.5-4.9)
[2016-12-06] MEDS: FAMOTIDINE 20 MG TAB GTB SCH (08:45)
[2016-12-06] MEDS: COLLAGENASE 30 GM TUBE TOP SCH (08:47)
[2016-12-06] MEDS: LOSARTAN 25 MG TAB PO SCH ×2 (08:47→21:16)
[2016-12-06] MEDS: MUPIROCIN 2% 22 GM OINT TOP SCH ×2 (08:47→21:16)
[2016-12-06] MEDS: METOPROLOL 25 MG TAB GTB SCH ×2 (08:47→18:41)
[2016-12-06 12:46] LABS: ABNORMAL IP MESSAGE 1; HEMATOCRIT 31.3 % (42.0-52.0); HEMOGLOBIN 9.7 g/dl (14.0-18.0); MEAN CORPUSCULAR HEMOGLOBIN 28.6 pg (29.0-33.0); MEAN CORPUSCULAR VOLUME 92.3 fl (82.0-101.0); MEAN PLATELET VOLUME 10.5 fl (7.4-10.4); PLATELET COUNT 314 10^3/UL (140-415); RED BLOOD COUNT 3.39 10^6/ul (4.70-6.10); RED CELL DISTRIBUTION WIDTH 15.3 % (11.5-14.5); WHITE BLOOD COUNT 23.2 10^3/ul (4.8-10.8)
[2016-12-06 13:28] LABS: EOSINOPHILS # 1.4 10^3/ul (0.0-0.5); LYMPHOCYTES # 0.2 10^3/ul (0.8-2.9); MONOCYTE # 0.5 10^3/ul (0.3-0.9); NEUTROPHIL # 20.6 10^3/ul (1.6-7.5)
--- NOTE | 2016-12-06 13:48 | PN ---
Date/Time of Note Date/Time of Note DATE: 12/06/16 TIME: 13:34 Assessment/Plan VTE Prophylaxis VTE Prophylaxis Intervention: SCD's Lines/Catheters IV Catheter Type (from Nrsg): PICC Line Central line still needed: Yes (for IV access ) Urinary Cath still in place: Yes Reason Cath still needed: other (indicate) (monitor UOP ) Assessment/Plan Assessment/Plan 81yo man with: 1. Sepsis, Bilateral Pneumonia, HCAP vs VAP, CT chest with severe bilateral PNA and CT neck with OA WBC back up to 23k today, afebrile, bronchospastic on exam, afebrile so far. CXRordered to r/o obstruction, Blood cx from PICC and periph, UA/Ucx, Sputum cx. Continue Imipenem and Vanco and follow up with ID recs today Patient seems more comfortable every day so far, alert and responsive, very pleasant. 2. Chronic vent-dependent respiratory failure, stable on Vent, oxygenating well. Per family has been able to get off vent and have some puree with trach capped at subacute facility. Continue Vancomycin and Imipenem until ID recs Appreciate Pulmonary recommendations 3. Hypokalemia/Hypomagnesemia: Repleting Mag and K prn 4. Severe Anemia, possible GI bleeding, Unclear source for now. Hb 9.7. No evidence for active bleeding for now. Resume Iron supplement. 5. Elevated troponins in setting of a fib with RVR and sepsis, CAD HR controlled with Bblocker, up to 50 mg po bid. Appreciate Cardiology recommendations. No anticoag due to Anemia 6. Neck pain but actually no rigidity as patient with good ROM but c spine pain : CT neck with severe OA, no other acute findings. 7. MRSA nares: Bactroban, on Vancomycin already 8. Hypertension: Continue Metoprolol at 50 mg po bid and Losartan added for better BP control Prophylaxis: Continue SCDs and Famotidine Disposition: On contact isolation and Telemetry. Continue current care. CXR DNR Subjective 24 Hr Interval Summary Free Text/Dictation Patient doing OK, afebrile but WBC up to 23K Discussed with ID, will re-culture, repeat CXR and no other abx changes for now Exam/Review of Systems Vital Signs Vitals Vital Signs Date Time Temp Pulse Resp B/P Pulse Ox O2 Delivery O2 Flow Rate FiO2 12/06/16 12:34 108 12/06/16 11:53 98.6 20 161/80 96 12/06/16 11:20 40 12/06/16 06:57 Room Air Intake and Output 12/05/16 12/05/16 12/06/16 15:00 23:00 07:00 Intake Total 1270 ml 1070 ml Output Total 1200 ml 1700 ml Balance 70 ml -630 ml Exam Constitutional: alert, non-verbal, oriented, other (trached and on Vent ) Respiratory: diminished breath sounds, other (seems bronchospastic ), wheezing Cardiovascular: nl pulses, regular rate and rhythm Gastrointestinal: non-tender, other (g tube in place ), soft Musculoskeletal: other (no edema but with LLE pain, chronic per family ) Extremities: normal pulses, other (no edema, clubbing or cyanosis) 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, nl mental status Results Result Diagram: 12/06/16 0455 12/06/16 0545 Results 24 hrs Laboratory Tests Test 12/06/16 04:55 12/06/16 05:41 12/06/16 05:45 White Blood Count 23.2 #H Red Blood Count 3.39 L Hemoglobin 9.7 L Hematocrit 31.3 L Mean Corpuscular Volume 92.3 Mean Corpuscular Hemoglobin 28.6 L Mean Corpuscular Hemoglobin Concent 31.0 L Red Cell Distribution Width 15.3 H Platelet Count 314 Mean Platelet Volume 10.5 H Neutrophils % 89.0 H Band Neutrophils % 2.0 Lymphocytes % 1.0 L Monocytes % 2.0 Eosinophils % 6.0 Neutrophils # 20.6 H Lymphocytes # 0.2 L Monocytes # 0.5 Eosinophils # 1.4 H Differential Comment MANUAL DIFF Large Platelets OCCASIONAL Phosphorus Level 3.7 Magnesium Level 2.2 Sodium Level 136 Potassium Level 4.2 Chloride Level 104 Carbon Dioxide Level 28 Anion Gap 8 Blood Urea Nitrogen 26 H Creatinine 0.55 L Glucose Level 132 Calcium Level 9.0 Medications Medications Current Medications Acetaminophen (Tylenol Tab) 650 mg Q6H PRN PEG PAIN LEVEL 1-3 OR FEVER Last administered on 12/05/16 15:23; Admin Dose 650 MG; Start 11/30/16 at 05:00 Morphine Sulfate (morphine) 2 mg Q4H PRN IV PAIN LEVEL 7-10 Last administered on 12/06/16 10:59; Admin Dose 2 MG; Start 11/30/16 at 05:00 Miscellaneous Information 1 ea NOTE XX ; Start 11/30/16 at 05:00 Glucose (Glutose) 15 gm Q15M PRN PO DECREASED GLUCOSE; Start 11/30/16 at 05:00 Glucose (Glutose) 22.5 gm Q15M PRN PO DECREASED GLUCOSE; Start 11/30/16 at 05: 00 Dextrose (D50w Syringe) 25 ml Q15M PRN IV DECREASED GLUCOSE; Start 11/30/16 at 05:00 Dextrose (D50w Syringe) 50 ml Q15M PRN IV DECREASED GLUCOSE; Start 11/30/16 at 05:00 Glucagon (Glucagen) 1 mg Q15M PRN IM DECREASED GLUCOSE; Start 11/30/16 at 05:00 Glucose (Glutose) 15 gm Q15M PRN BUCCAL DECREASED GLUCOSE; Start 11/30/16 at 05 :00 Metoprolol Tartrate (Lopressor) 2.5 mg Q2H PRN IV heart rate over 110; Start at 12:00 Miscellaneous Information (Pending Santyl Order For Wound Care) This patient anton... PRN PRN XX WOUND CARE; Start 12/02/16 at 11:30 Collagenase (Santyl) 1 applic DAILY TOP Last administered on 12/06/16 08:47; Admin Dose 1 APPLIC; Start 12/02/16 at 12:00 Collagenase (Santyl) 1 applic DAILY PRN TOP PER WOUND CARE ORDERS; Start at 11:30 Mupirocin 1 applic 1 applic BID TOP Last administered on 12/06/16 08:47; Admin Dose 1 APPLIC; Start 12/02/16 at 21:00; Stop 12/16/16 at 20:59 Imipenem/ Cilastatin Sodium 100 ml @ 100 mls/hr Q8 IVPB Last administered on 05:37; Admin Dose 100 MLS/HR; Start 12/03/16 at 10:00 Vancomycin HCl/ Sodium Chloride (Vancocin/NS) 250 ml @ 83.333 mls/ hr Q24H IVPB Last administered on 12/06/16 04:12; Admin Dose 83.333 MLS/HR; Start at 05:00 Metoprolol Tartrate (Lopressor) 50 mg BID GTB Last administered on 12/06/16 08 :47; Admin Dose 50 MG; Start 12/04/16 at 21:00 Famotidine (Pepcid) 20 mg DAILY GTB Last administered on 12/06/16 08:45; Admin Dose 20 MG; Start 12/05/16 at 09:00 Losartan Potassium (Cozaar) 25 mg BID PO Last administered on 12/06/16 08:47; Admin Dose 25 MG; Start 12/05/16 at 21:00 CHARLETTE RUTHERFORD Dec 06, 2016 13:47
[2016-12-06 14:40] LABS: ADD UMIC YES; URINE BILIRUBIN (Dip) NEGATIVE (NEGATIVE); URINE BLOOD (Dip) 3+ (NEGATIVE); URINE COLOR LT. YELLOW (YELLOW); URINE GLUCOSE (Dip) NEGATIVE (NEGATIVE); URINE KETONES (Dip) NEGATIVE (NEGATIVE); URINE LEUKOCYTE ESTERASE (Dip) TRACE (NEGATIVE); URINE NITRITE (Dip) NEGATIVE (NEGATIVE); URINE TOTAL PROTEIN (Dip) TRACE (NEGATIVE); URINE UROBILINOGEN (Dip) 0.2 E.U./dL (0.1-1.0)
--- NOTE | 2016-12-06 16:05 | RADRPT ---
PROCEDURE: CHEST 1VW CLINICAL INDICATION: Shortness of breath TECHNIQUE: Single frontal view of the chest was obtained COMPARISON: 12/03/2016 FINDINGS: Stable tracheostomy.Interval placement of right PICC with the tip terminating in the superior vena c roz. The cardiac size is normal. Aortic vascular calcifications are demonstrated. There is stable mild to moderate pulmonary vascular congestion. Interval increase in moderate right pleural effusion with associated atelectasis. Stable chronic int erstitial senescent changes lung. Mild degenerative changes of the visualized osseous structures are visualized. IMPRESSION: 1. Interval increase in moderate right pleural effusion with associated atelectasis. 2. Atherosclerosis with stable mild to moderate pulmonary vascular congestion. RPTAT:PP .Jason Bundy MD, MD Date Time Electronically viewed and signed by .Jason Bundy MD, MD on 12/06/2016 16:04 .V/
[2016-12-06] MEDS: hydrALAzine 20 MG INJ IV PRN (16:13)
[2016-12-06] MEDS: LEVALBUTEROL (HFA) 15 GM INHALER INH SCH ×2 (16:21→23:13)
[2016-12-06] MEDS: IPRATROPIUM (HFA) 12.9 GM INHALER INH SCH ×2 (16:22→23:13)
--- NOTE | 2016-12-06 16:38 | CONS ---
Date/Time of Note Date/Time of Note DATE: 12/06/16 TIME: 16:36 Consult Date/Type/Reason Admit Date/Time Nov 30, 2016 at 04:54 Initial Consult Date 12/01/16 Type of Consultation: ID Ordering Provider: CHARLETTE RUTHERFORD Objective Vital Signs Date Time Temp Pulse Resp B/P Pulse Ox O2 Delivery O2 Flow Rate FiO2 12/06/16 16:20 119 12/06/16 15:15 24 93 40 12/06/16 14:57 99.2 188/85 12/06/16 06:57 Room Air Intake and Output 12/05/16 12/05/16 12/06/16 15:00 23:00 07:00 Intake Total 1270 ml 1070 ml Output Total 1200 ml 1700 ml Balance 70 ml -630 ml Exam PHYSICAL EXAMINATION GENERAL: Elderly gentleman, on mechanical ventilation, opens eyes and appears somewhat agitated. VITAL SIGNS: see below. HEENT: Pupils equal, round, and reactive to light. Tracheostomy site clean and intact. CARDIAC: S1, S2, CHEST: Diminished air entry bilaterally. ABDOMEN: Mildly distended. Diminished bowel sounds no guarding or rebound EXTREMITIES: No cyanosis, clubbing or edema. NEUROLOGIC: No focal deficits. Results/Medications Result Diagram: 12/06/16 0455 12/06/16 0545 Results 24 hrs Laboratory Tests Test 12/06/16 04:55 12/06/16 05:41 12/06/16 05:45 12/06/16 13:50 White Blood Count 23.2 #H Red Blood Count 3.39 L Hemoglobin 9.7 L Hematocrit 31.3 L Mean Corpuscular Volume 92.3 Mean Corpuscular Hemoglobin 28.6 L Mean Corpuscular Hemoglobin Concent 31.0 L Red Cell Distribution Width 15.3 H Platelet Count 314 Mean Platelet Volume 10.5 H Neutrophils % 89.0 H Band Neutrophils % 2.0 Lymphocytes % 1.0 L Monocytes % 2.0 Eosinophils % 6.0 Neutrophils # 20.6 H Lymphocytes # 0.2 L Monocytes # 0.5 Eosinophils # 1.4 H Differential Comment MANUAL DIFF Large Platelets OCCASIONAL Phosphorus Level 3.7 Magnesium Level 2.2 Sodium Level 136 Potassium Level 4.2 Chloride Level 104 Carbon Dioxide Level 28 Anion Gap 8 Blood Urea Nitrogen 26 H Creatinine 0.55 L Glucose Level 132 Calcium Level 9.0 Urine Color LT. YELLOW Urine Clarity HAZY Urine pH 7.0 Urine Specific [place] 1.010 Urine Ketones NEGATIVE Urine Nitrite NEGATIVE Urine Bilirubin NEGATIVE Urine Urobilinogen 0.2 E.U./dL Urine Leukocyte Esterase TRACE H Urine Microscopic RBC 5-10 Urine Microscopic WBC 2-5 Urine Hemoglobin 3+ H Urine Glucose NEGATIVE Urine Total Protein TRACE Medications Current Medications Acetaminophen (Tylenol Tab) 650 mg Q6H PRN PEG PAIN LEVEL 1-3 OR FEVER Last administered on 12/05/16 15:23; Admin Dose 650 MG; Start 11/30/16 at 05:00 Morphine Sulfate (morphine) 2 mg Q4H PRN IV PAIN LEVEL 7-10 Last administered on 12/06/16 10:59; Admin Dose 2 MG; Start 11/30/16 at 05:00 Miscellaneous Information 1 ea NOTE XX ; Start 11/30/16 at 05:00 Glucose (Glutose) 15 gm Q15M PRN PO DECREASED GLUCOSE; Start 11/30/16 at 05:00 Glucose (Glutose) 22.5 gm Q15M PRN PO DECREASED GLUCOSE; Start 11/30/16 at 05: 00 Dextrose (D50w Syringe) 25 ml Q15M PRN IV DECREASED GLUCOSE; Start 11/30/16 at 05:00 Dextrose (D50w Syringe) 50 ml Q15M PRN IV DECREASED GLUCOSE; Start 11/30/16 at 05:00 Glucagon (Glucagen) 1 mg Q15M PRN IM DECREASED GLUCOSE; Start 11/30/16 at 05:00 Glucose (Glutose) 15 gm Q15M PRN BUCCAL DECREASED GLUCOSE; Start 11/30/16 at 05 :00 Metoprolol Tartrate (Lopressor) 2.5 mg Q2H PRN IV heart rate over 110; Start at 12:00 Miscellaneous Information (Pending Santyl Order For Wound Care) This patient anton... PRN PRN XX WOUND CARE; Start 12/02/16 at 11:30 Collagenase (Santyl) 1 applic DAILY TOP Last administered on 12/06/16 08:47; Admin Dose 1 APPLIC; Start 12/02/16 at 12:00 Collagenase (Santyl) 1 applic DAILY PRN TOP PER WOUND CARE ORDERS; Start at 11:30 Mupirocin 1 applic 1 applic BID TOP Last administered on 12/06/16 08:47; Admin Dose 1 APPLIC; Start 12/02/16 at 21:00; Stop 12/16/16 at 20:59 Imipenem/ Cilastatin Sodium 100 ml @ 100 mls/hr Q8 IVPB Last administered on 13:45; Admin Dose 100 MLS/HR; Start 12/03/16 at 10:00 Vancomycin HCl/ Sodium Chloride (Vancocin/NS) 250 ml @ 83.333 mls/ hr Q24H IVPB Last administered on 12/06/16 04:12; Admin Dose 83.333 MLS/HR; Start at 05:00 Metoprolol Tartrate (Lopressor) 50 mg BID GTB Last administered on 12/06/16 08 :47; Admin Dose 50 MG; Start 12/04/16 at 21:00 Famotidine (Pepcid) 20 mg DAILY GTB Last administered on 12/06/16 08:45; Admin Dose 20 MG; Start 12/05/16 at 09:00 Losartan Potassium (Cozaar) 25 mg BID PO Last administered on 12/06/16 08:47; Admin Dose 25 MG; Start 12/05/16 at 21:00 Miscellaneous Information (*Rx Drug Level Order Reminder*) 1 ONCE ONCE XX ; Start 12/07/16 at 04:00; Stop 12/07/16 at 04:01 Hydralazine HCl (Apresoline) 10 mg Q6H PRN IV ELEVATED BLOOD PRESSURE Last administered on 12/06/16 16:13; Admin Dose 10 MG; Start 12/06/16 at 16:00 Furosemide (Lasix) 20 mg ONCE ONCE IV ; Start 12/06/16 at 17:00; Stop 12/06/16 at 17:01; Status UNV Assessment/Plan Chief Complaint/Hosp Course Assessment 1. Hypoxemic respiratory failure on mechanical ventilation via tracheostomy 2. Healthcare associated pneumonia 3. Mild dehydration 4. Anemia of chronic disease 5. History of CVA 6. Dysphagia with G-tube Plan 1. Continue mechanical ventilation 2. Continue broad-spectrum antibiotics 3. Tube feeding as tolerated 4. Correction of electrolyte abnormalities 5. DVT GI prophylaxis Disposition Continue telemetry care Problems: JO[facility]ERRING [facility] Dec 06, 2016 16:38
--- NOTE | 2016-12-06 16:56 | PN ---
DATE: 12/06/2016 SUBJECTIVE: No acute changes. Patient is awake, still with copious secretions. No fevers. WBC today increased to 23.2, with neutrophils 89.2, bands 2, lymphs 1, monos 2. BUN 26, creatinine 0.55. ANTIMICROBIALS: The patient remains on IV vancomycin and Imipenem. DIAGNOSTICS: Chest x-ray repeated this morning revealed increased moderate right pleural effusion. INDWELLINGS: Trach, PEG. Cherry, PICC line placed on 11/30/2016. PHYSICAL EXAMINATION: GENERAL: Fragile, elderly man in no distress. HEENT: Head atraumatic, normocephalic. Sclerae anicteric. Buccal mucosa pink, dry. NECK: Supple. Tracheostomy present. CHEST: Rise symmetrical. Breath sounds with bilateral scattered crackles. HEART: S1, S2. ABDOMEN: Soft, bowel tones present. EXTREMITIES: Without cyanosis. ASSESSMENT: 1. Systemic inflammatory response syndrome. 2. Healthcare-associated pneumonia. 3. Right pleural effusion. 4. Methicillin-resistant staphylococcus aureus nares colonization. 4. Chronic respiratory failure and dysphagia. 5. Diabetes. 6. Coronary artery disease. PLAN: The patient remains clinically unchanged with increased leukocytosis likely secondary to wors ening pleural effusion. Repeat cultures ordered. He is covered with appropriate antimicrobials. H e is getting Bactroban to nares. He may need thoracentesis. Dictated By: ELI VALDEZ BLEACHER PULP for JANICE CASTILLO/MENDOZA Conf#: [id number] DID#: [id number]
[2016-12-06] MEDS ORDERED: FUROSEMIDE 20 MG INJ IV ONE (17:00)
[2016-12-07] VITALS (24 sets, daily range): BP systolic 134–164; BP diastolic 63–93; PULSE 85–132; RESP 18–20
[2016-12-07 03:58] LABS: ADD SCAN DIFF NO
[2016-12-07 04:02] LABS: ABNORMAL IP MESSAGE 1; BASOPHIL # 0.1 10^3/ul (0.0-0.1); BASOPHILS % 0.2 % (0.0-2.0); EOSINOPHILS # 0.2 10^3/ul (0.0-0.5); EOSINOPHILS % 0.5 % (0.0-7.0); HEMATOCRIT 31.3 % (42.0-52.0); HEMOGLOBIN 9.5 g/dl (14.0-18.0); LYMPHOCYTES # 1.3 10^3/ul (0.8-2.9); LYMPHOCYTES % 4.3 % (15.0-51.0); MEAN CORPUSCULAR HEMOGLOBIN 27.5 pg (29.0-33.0); MEAN CORPUSCULAR HGB CONC 30.4 g/dl (32.0-37.0); MEAN CORPUSCULAR VOLUME 90.5 fl (82.0-101.0); MEAN PLATELET VOLUME 9.8 fl (7.4-10.4); MONOCYTES % 3.2 % (0.0-11.0); NEUTROPHIL # 27.9 10^3/ul (1.6-7.5); NEUTROPHILS % 90.6 % (39.0-77.0); PLATELET COUNT 279 10^3/UL (140-415); RED BLOOD COUNT 3.46 10^6/ul (4.70-6.10); RED CELL DISTRIBUTION WIDTH 15.4 % (11.5-14.5); WHITE BLOOD COUNT 30.8 10^3/ul (4.8-10.8)
[2016-12-07] MEDS: morphine 2 MG INJ IV PRN ×2 (04:14→20:56)
[2016-12-07 04:15] LABS: POTASSIUM 3.5 mmol/L (3.5-5.1)
[2016-12-07] MEDS: METOPROLOL 5 MG INJ IV PRN (04:17)
[2016-12-07 04:18] LABS: CREATININE 0.55 mg/dl (0.61-1.24)
[2016-12-07 04:19] LABS: PHOSPHORUS 3.8 mg/dl (2.5-4.9)
[2016-12-07] MEDS: IMIPENEM-CILAST 500MG IV (PMX) 100 ML IVPB SCH ×3 (05:04→20:56)
[2016-12-07] MEDS: VANCOMYCIN 1 GM in NS 250 ML IVPB SCH (06:14)
[2016-12-07] MEDS: IPRATROPIUM (HFA) 12.9 GM INHALER INH SCH ×3 (07:26→23:19)
[2016-12-07] MEDS: LEVALBUTEROL (HFA) 15 GM INHALER INH SCH ×3 (07:27→23:19)
[2016-12-07] MEDS: COLLAGENASE 30 GM TUBE TOP SCH (09:00)
[2016-12-07] MEDS: METOPROLOL 25 MG TAB GTB SCH ×2 (10:51→20:53)
[2016-12-07] MEDS: MUPIROCIN 2% 22 GM OINT TOP SCH ×2 (10:52→20:55)
[2016-12-07] MEDS: FAMOTIDINE 20 MG TAB GTB SCH (10:52)
[2016-12-07] MEDS: LOSARTAN 25 MG TAB PO SCH ×2 (10:52→20:54)
--- NOTE | 2016-12-07 13:28 | CONS ---
Date/Time of Note Date/Time of Note DATE: 12/07/16 TIME: 13:28 Assessment/Plan Assessment/Plan Chief Complaint/Hosp Course ID PROGRESS NOTE TOTAL ABX DAY # 8 => Vanco IV + Primaxin 24H INTERVAL SUMMARY * 81 M w/Trach->Vented, lethargic -- awakens makes eye contact and smiles to verbal stimuli. Family present. * Chart reviewed -> BCx(-), Urine Cx(-); (+)MRSA Nares * 12/06/16 RESPIRATORY CULTURE Preliminary Culture too young to evaluate DIAGNOSTIC IMAGING * 12/07/15 CXR: IMPRESSION:1. Interval increase in moderate right pleural effusion with associated atelectasis. 2. Atherosclerosis with stable mild to moderate pulmonary vascular congestion. * CT 12/03/16 IMPRESSION: * 1. Severe dense confluent multifocal consolidation scattered throughout the lungs consistent with widespread diffuse pneumonia. * 2. Extensive mediastinal and hilar adenopathy with adenopathy extending to the supraclavicular laura stations bilaterally. * 3. Tiny layering effusions within the posterior lung bases bilaterally. * 4. Tracheostomy tube in place, in good location within the trachea above the nehemiah. * 5. Left-sided PICC line in good position with the tip in the superior vena cava. 6. 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 PHYSICAL EXAMINATION: GENERAL: Frail 81 yo elder M w/chronic debility on the Vent, VSS, NAD HEENT: Unremarkable except no teeth NECK: Supple, trach->clean stoma and secure to Vent CHEST: Equal chest rise bilaterally, without dyspnea on observation HEART: Pulse RRR ABDOMEN: Soft, benign., peg EXTREMITIES: Warm, dry, muscle atrophy, missing finger digits SKIN: Warm, dry ID ASSESSMENT: 81 yo M w/PMHx CVA w/right hemiplegia, dementia, dysphagia-PEG, VDRF, admitted with: 1. Systemic inflammatory response syndrome with low grade temperatures, leukocytosis * WBC rising on day #8 ABX ? Opportunistic infx ? 2. Healthcare-associated pneumonia: presumptive MRSA 3. Right pleural effusion. 4. 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 GERD ?Gastroparesis? 7. BPH w/suspected urinary retention - indwelling FC 8. CKD 9. 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 QUERY: ?Early UTI w/trace leuk esterase, pyuria on UA 12/06/16 11. LUEXT PICC = present on admission INVASIVES: * Trach, Peg, FC, PICC->11/30/17 ABX ALLERGIES: KNDA CURRENT ABX: # 8 => Vanco IV + Primaxin s/p Zosyn in ED ID RECOMMENDATIONS: 1. Continue current ABX -> Await results of respiratory cx pending 2. Check stool for CDiff toxin due to rising WBC > 30,000 3. Sacral decub looks clean -- will swab for bacterial pathogens 4. Will consider de-escalate ABX = DC Primaxin if sputum cx (-) for GNR and see if WBC normalizes . . . Problems: Consultation Date/Type/Reason Admit Date/Time Nov 30, 2016 at 04:54 Initial Consult Date 12/01/16 Type of Consultation: ID Referring Provider: CHARLETTE RUTHERFORD Exam/Review of Systems Vital Signs Vitals Vital Signs Date Time Temp Pulse Resp B/P Pulse Ox O2 Delivery O2 Flow Rate FiO2 12/07/16 12:25 85 12/07/16 11:15 18 97 60 12/07/16 11:07 98.7 158/93 12/06/16 06:57 Room Air Intake and Output 12/06/16 12/06/16 12/07/16 15:00 23:00 07:00 Intake Total 1120 ml 860 ml Output Total 1200 ml 1000 ml Balance -80 ml -140 ml Results Result Diagram: 12/07/16 0348 12/07/16 0348 Results 24 hrs Laboratory Tests Test 12/06/16 13:50 12/07/16 03:48 Urine Color LT. YELLOW Urine Clarity HAZY Urine pH 7.0 Urine Specific [place] 1.010 Urine Ketones NEGATIVE Urine Nitrite NEGATIVE Urine Bilirubin NEGATIVE Urine Urobilinogen 0.2 E.U./dL Urine Leukocyte Esterase TRACE H Urine Microscopic RBC 5-10 Urine Microscopic WBC 2-5 Urine Hemoglobin 3+ H Urine Glucose NEGATIVE Urine Total Protein TRACE White Blood Count 30.8 #H Red Blood Count 3.46 L Hemoglobin 9.5 L Hematocrit 31.3 L Mean Corpuscular Volume 90.5 Mean Corpuscular Hemoglobin 27.5 L Mean Corpuscular Hemoglobin Concent 30.4 L Red Cell Distribution Width 15.4 H Platelet Count 279 Mean Platelet Volume 9.8 Neutrophils % 90.6 H Lymphocytes % 4.3 L Monocytes % 3.2 Eosinophils % 0.5 Basophils % 0.2 Nucleated Red Blood Cells % 0.0 Neutrophils # 27.9 H Lymphocytes # 1.3 Monocytes # 1.0 H Eosinophils # 0.2 Basophils # 0.1 Nucleated Red Blood Cells # 0.0 Sodium Level 140 Potassium Level 3.5 Chloride Level 101 Carbon Dioxide Level 30 Anion Gap 13 Blood Urea Nitrogen 30 H Creatinine 0.55 L Glucose Level 153 Calcium Level 9.0 Phosphorus Level 3.8 Magnesium Level 2.0 Vancomycin Level Trough 17.9 Medications Medications Current Medications Acetaminophen (Tylenol Tab) 650 mg Q6H PRN PEG PAIN LEVEL 1-3 OR FEVER Last administered on 12/05/16 15:23; Admin Dose 650 MG; Start 11/30/16 at 05:00 Morphine Sulfate (morphine) 2 mg Q4H PRN IV PAIN LEVEL 7-10 Last administered on 12/07/16 04:14; Admin Dose 2 MG; Start 11/30/16 at 05:00 Miscellaneous Information 1 ea NOTE XX ; Start 11/30/16 at 05:00 Glucose (Glutose) 15 gm Q15M PRN PO DECREASED GLUCOSE; Start 11/30/16 at 05:00 Glucose (Glutose) 22.5 gm Q15M PRN PO DECREASED GLUCOSE; Start 11/30/16 at 05: 00 Dextrose (D50w Syringe) 25 ml Q15M PRN IV DECREASED GLUCOSE; Start 11/30/16 at 05:00 Dextrose (D50w Syringe) 50 ml Q15M PRN IV DECREASED GLUCOSE; Start 11/30/16 at 05:00 Glucagon (Glucagen) 1 mg Q15M PRN IM DECREASED GLUCOSE; Start 11/30/16 at 05:00 Glucose (Glutose) 15 gm Q15M PRN BUCCAL DECREASED GLUCOSE; Start 11/30/16 at 05 :00 Metoprolol Tartrate (Lopressor) 2.5 mg Q2H PRN IV heart rate over 110 Last administered on 12/07/16 04:17; Admin Dose 2.5 MG; Start 12/01/16 at 12:00 Miscellaneous Information (Pending Santyl Order For Wound Care) This patient anton... PRN PRN XX WOUND CARE; Start 12/02/16 at 11:30 Collagenase (Santyl) 1 applic DAILY TOP Last administered on 12/06/16 08:47; Admin Dose 1 APPLIC; Start 12/02/16 at 12:00 Collagenase (Santyl) 1 applic DAILY PRN TOP PER WOUND CARE ORDERS; Start at 11:30 Mupirocin 1 applic 1 applic BID TOP Last administered on 12/07/16 10:52; Admin Dose 1 APPLIC; Start 12/02/16 at 21:00; Stop 12/16/16 at 20:59 Imipenem/ Cilastatin Sodium (Primaxin 500 Mg/ 100 ml (Pmx)) 100 ml @ 100 mls/ hr Q8 IVPB Last administered on 12/07/16 05:04; Admin Dose 100 MLS/HR; Start 12/03/16 at 10:00 Metoprolol Tartrate (Lopressor) 50 mg BID GTB Last administered on 12/07/16 10 :51; Admin Dose 50 MG; Start 12/04/16 at 21:00 Famotidine (Pepcid) 20 mg DAILY GTB Last administered on 12/07/16 10:52; Admin Dose 20 MG; Start 12/05/16 at 09:00 Losartan Potassium (Cozaar) 25 mg BID PO Last administered on 12/07/16 10:52; Admin Dose 25 MG; Start 12/05/16 at 21:00 Hydralazine HCl 10 mg 10 mg Q6H PRN IV ELEVATED BLOOD PRESSURE Last administered on 12/06/16 16:13; Admin Dose 10 MG; Start 12/06/16 at 16:00 Vancomycin HCl (Vancocin) 250 ml @ 125 mls/hr Q24H IVPB Last administered on 06:14; Admin Dose 125 MLS/HR; Start 12/07/16 at 05:00 OSEI BLACKWOOD NP Dec 07, 2016 13:28
--- NOTE | 2016-12-07 14:18 | PN ---
Date/Time of Note Date/Time of Note DATE: 12/07/16 TIME: 14:03 Assessment/Plan VTE Prophylaxis VTE Prophylaxis Intervention: SCD's Lines/Catheters IV Catheter Type (from Nrsg): PICC Line Central line still needed: Yes (for IV access ) Urinary Cath still in place: Yes Reason Cath still needed: other (indicate) (for monitoring UOP) Assessment/Plan Assessment/Plan 81yo man with: 1. Sepsis, Bilateral Pneumonia, HCAP vs VAP, CT chest with severe bilateral PNA and CT neck with OA WBC trending back up to 30K today, afebrile. Repeat CXR with RLL white out, effusion vs consolidation, repeat Blood cx from PICC and periph, UA/Ucx, Sputum cx.NGTD x 24 hrs. C diff pending but no diarrhea. Continue Imipenem and Vanco and follow up with ID recs today Patient seems a little more lethargic today 2. Chronic vent-dependent respiratory failure, stable on Vent, oxygenating well. Per family has been able to have some puree at [facility]acute facility[facility] while on the vent? Continue Vancomycin and Imipenem until ID recs Appreciate Pulmonary recommendations 3. Hypokalemia/Hypomagnesemia: Repleting Mag and K prn 4. Severe Anemia, possible GI bleeding, Unclear source for now. Hb 9.7. No evidence for active bleeding for now. Resumed Iron supplement. 5. Elevated troponins in setting of a fib with RVR and sepsis, CAD HR controlled with Bblocker, up to 50 mg po bid. Appreciate Cardiology recommendations. No anticoag due to Anemia 6. Neck pain but actually no rigidity as patient with good ROM but c spine pain : CT neck with severe OA, no other acute findings. 7. MRSA nares: Bactroban, on Vancomycin already 8. Hypertension: Continue Metoprolol at 50 mg po bid and Losartan added for better BP control Prophylaxis: Continue SCDs and Famotidine Disposition: On contact isolation and Telemetry. Continue current care. Follow up ID recs today. DNR Subjective 24 Hr Interval Summary Free Text/Dictation Persistent leukocytosis and up to 30K today Afebrile bur patient with episodes of RVR and increased O2 req up to 60 to 70 % on Vent and also seems lethargic today CXR yesterday afternoon with ? RLL consolidation vs effusion increased ID and Pulmonary recs pending today Exam/Review of Systems Vital Signs Vitals Vital Signs Date Time Temp Pulse Resp B/P Pulse Ox O2 Delivery O2 Flow Rate FiO2 12/07/16 13:10 109 18 97 60 12/07/16 11:07 98.7 158/93 12/06/16 06:57 Room Air Intake and Output 12/06/16 12/06/16 12/07/16 15:00 23:00 07:00 Intake Total 1120 ml 860 ml Output Total 1200 ml 1000 ml Balance -80 ml -140 ml Exam Constitutional: alert, frail, non-verbal, oriented, other (lethargic ) Respiratory: diminished breath sounds (bilaterally with rales ), other (on Vent with O2 req up to 60 to 70 % up from 40%) Cardiovascular: irregular rhythm (A fib) Gastrointestinal: non-tender, other (G tube site OK and tolerating feeding), soft Musculoskeletal: muscle weakness (generalised ), other (RLE pain, no edema, clubbing or cyanosis ) Neurological: SLIP MAKER II-XII intact, lethargic, nl mental status, other ( generalised weakness ) Results Result Diagram: 12/07/16 0348 12/07/16 0348 Results 24 hrs Laboratory Tests Test 12/07/16 03:48 White Blood Count 30.8 #H Red Blood Count 3.46 L Hemoglobin 9.5 L Hematocrit 31.3 L Mean Corpuscular Volume 90.5 Mean Corpuscular Hemoglobin 27.5 L Mean Corpuscular Hemoglobin Concent 30.4 L Red Cell Distribution Width 15.4 H Platelet Count 279 Mean Platelet Volume 9.8 Neutrophils % 90.6 H Lymphocytes % 4.3 L Monocytes % 3.2 Eosinophils % 0.5 Basophils % 0.2 Nucleated Red Blood Cells % 0.0 Neutrophils # 27.9 H Lymphocytes # 1.3 Monocytes # 1.0 H Eosinophils # 0.2 Basophils # 0.1 Nucleated Red Blood Cells # 0.0 Sodium Level 140 Potassium Level 3.5 Chloride Level 101 Carbon Dioxide Level 30 Anion Gap 13 Blood Urea Nitrogen 30 H Creatinine 0.55 L Glucose Level 153 Calcium Level 9.0 Phosphorus Level 3.8 Magnesium Level 2.0 Vancomycin Level Trough 17.9 Medications Medications Current Medications Acetaminophen (Tylenol Tab) 650 mg Q6H PRN PEG PAIN LEVEL 1-3 OR FEVER Last administered on 12/05/16t 15:23; Admin Dose 650 MG; Start 4/15/17 at 05:00 Morphine Sulfate (morphine) 2 mg Q4H PRN IV PAIN LEVEL 7-10 Last administered on 12/07/16 04:14; Admin Dose 2 MG; Start 11/30/16 at 05:00 Miscellaneous Information 1 ea NOTE XX ; Start 11/30/16 at 05:00 Glucose (Glutose) 15 gm Q15M PRN PO DECREASED GLUCOSE; Start 11/30/16 at 05:00 Glucose (Glutose) 22.5 gm Q15M PRN PO DECREASED GLUCOSE; Start 11/30/16 at 05: 00 Dextrose (D50w Syringe) 25 ml Q15M PRN IV DECREASED GLUCOSE; Start 11/30/16 at 05:00 Dextrose (D50w Syringe) 50 ml Q15M PRN IV DECREASED GLUCOSE; Start 11/30/16 at 05:00 Glucagon (Glucagen) 1 mg Q15M PRN IM DECREASED GLUCOSE; Start 11/30/16 at 05:00 Glucose (Glutose) 15 gm Q15M PRN BUCCAL DECREASED GLUCOSE; Start 11/30/16 at 05 :00 Metoprolol Tartrate (Lopressor) 2.5 mg Q2H PRN IV heart rate over 110 Last administered on 12/07/16 04:17; Admin Dose 2.5 MG; Start 12/01/16 at 12:00 Miscellaneous Information (Pending Santyl Order For Wound Care) This patient anton... PRN PRN XX WOUND CARE; Start 12/02/16 at 11:30 Collagenase (Santyl) 1 applic DAILY TOP Last administered on 12/06/16 08:47; Admin Dose 1 APPLIC; Start 12/02/16 at 12:00 Collagenase (Santyl) 1 applic DAILY PRN TOP PER WOUND CARE ORDERS; Start at 11:30 Mupirocin 1 applic 1 applic BID TOP Last administered on 12/07/16 10:52; Admin Dose 1 APPLIC; Start 12/02/16 at 21:00; Stop 12/16/16 at 20:59 Imipenem/ Cilastatin Sodium (Primaxin 500 Mg/ 100 ml (Pmx)) 100 ml @ 100 mls/ hr Q8 IVPB Last administered on 12/07/16 05:04; Admin Dose 100 MLS/HR; Start 12/03/16 at 10:00 Metoprolol Tartrate (Lopressor) 50 mg BID GTB Last administered on 12/07/16 10 :51; Admin Dose 50 MG; Start 12/04/16 at 21:00 Famotidine (Pepcid) 20 mg DAILY GTB Last administered on 12/07/16 10:52; Admin Dose 20 MG; Start 12/05/16 at 09:00 Losartan Potassium (Cozaar) 25 mg BID PO Last administered on 12/07/16 10:52; Admin Dose 25 MG; Start 12/05/16 at 21:00 Hydralazine HCl 10 mg 10 mg Q6H PRN IV ELEVATED BLOOD PRESSURE Last administered on 12/06/16 16:13; Admin Dose 10 MG; Start 12/06/16 at 16:00 Vancomycin HCl (Vancocin) 250 ml @ 125 mls/hr Q24H IVPB Last administered on 06:14; Admin Dose 125 MLS/HR; Start 12/07/16 at 05:00 CHARLETTE RUTHERFORD Dec 07, 2016 14:14
[2016-12-07] MEDS: ACETAMINOPHEN 325 MG TAB PEG PRN (14:56)
--- NOTE | 2016-12-07 17:07 | CONS ---
Date/Time of Note Date/Time of Note DATE: 12/07/16 TIME: 17:02 Consult Date/Type/Reason Admit Date/Time Nov 30, 2016 at 04:54 Initial Consult Date 12/01/16 Type of Consultation: Pulm Ordering Provider: CHARLETTE RUTHERFORD Subjective Slightly more lethargic today. Increased oxygen requirements noted. Objective Vital Signs Date Time Temp Pulse Resp B/P Pulse Ox O2 Delivery O2 Flow Rate FiO2 12/07/16 16:26 122 12/07/16 15:25 98.5 20 164/67 97 12/07/16 15:20 60 12/06/16 06:57 Room Air Intake and Output 12/06/16 12/06/16 12/07/16 15:00 23:00 07:00 Intake Total 1120 ml 860 ml Output Total 1200 ml 1000 ml Balance -80 ml -140 ml Exam HEENT: Pupils equal, round, and reactive to light. Tracheostomy site clean and intact. CARDIAC: RRR, S1 and S2 CHEST: Coarse rhonchi b/l ABDOMEN: Mildly distended. Diminished bowel sounds no guarding or rebound EXTREMITIES: No cyanosis, clubbing or edema. Results/Medications Result Diagram: 12/07/16 0348 12/07/16 0348 Results 24 hrs Laboratory Tests Test 12/07/16 03:48 White Blood Count 30.8 #H Red Blood Count 3.46 L Hemoglobin 9.5 L Hematocrit 31.3 L Mean Corpuscular Volume 90.5 Mean Corpuscular Hemoglobin 27.5 L Mean Corpuscular Hemoglobin Concent 30.4 L Red Cell Distribution Width 15.4 H Platelet Count 279 Mean Platelet Volume 9.8 Neutrophils % 90.6 H Lymphocytes % 4.3 L Monocytes % 3.2 Eosinophils % 0.5 Basophils % 0.2 Nucleated Red Blood Cells % 0.0 Neutrophils # 27.9 H Lymphocytes # 1.3 Monocytes # 1.0 H Eosinophils # 0.2 Basophils # 0.1 Nucleated Red Blood Cells # 0.0 Sodium Level 140 Potassium Level 3.5 Chloride Level 101 Carbon Dioxide Level 30 Anion Gap 13 Blood Urea Nitrogen 30 H Creatinine 0.55 L Glucose Level 153 Calcium Level 9.0 Phosphorus Level 3.8 Magnesium Level 2.0 Vancomycin Level Trough 17.9 Medications Current Medications Acetaminophen (Tylenol Tab) 650 mg Q6H PRN PEG PAIN LEVEL 1-3 OR FEVER Last administered on 12/07/16 14:56; Admin Dose 650 MG; Start 11/30/16 at 05:00 Morphine Sulfate (morphine) 2 mg Q4H PRN IV PAIN LEVEL 7-10 Last administered on 12/07/16 04:14; Admin Dose 2 MG; Start 11/30/16 at 05:00 Miscellaneous Information 1 ea NOTE XX ; Start 11/30/16 at 05:00 Glucose (Glutose) 15 gm Q15M PRN PO DECREASED GLUCOSE; Start 11/30/16 at 05:00 Glucose (Glutose) 22.5 gm Q15M PRN PO DECREASED GLUCOSE; Start 11/30/16 at 05: 00 Dextrose (D50w Syringe) 25 ml Q15M PRN IV DECREASED GLUCOSE; Start 11/30/16 at 05:00 Dextrose (D50w Syringe) 50 ml Q15M PRN IV DECREASED GLUCOSE; Start 11/30/16 at 05:00 Glucagon (Glucagen) 1 mg Q15M PRN IM DECREASED GLUCOSE; Start 11/30/16 at 05:00 Glucose (Glutose) 15 gm Q15M PRN BUCCAL DECREASED GLUCOSE; Start 11/30/16 at 05 :00 Metoprolol Tartrate (Lopressor) 2.5 mg Q2H PRN IV heart rate over 110 Last administered on 12/07/16 04:17; Admin Dose 2.5 MG; Start 12/01/16 at 12:00 Miscellaneous Information (Pending Santyl Order For Wound Care) This patient anton... PRN PRN XX WOUND CARE; Start 12/02/16 at 11:30 Collagenase (Santyl) 1 applic DAILY TOP Last administered on 12/06/16 08:47; Admin Dose 1 APPLIC; Start 12/02/16 at 12:00 Collagenase (Santyl) 1 applic DAILY PRN TOP PER WOUND CARE ORDERS; Start at 11:30 Mupirocin 1 applic 1 applic BID TOP Last administered on 12/07/16 10:52; Admin Dose 1 APPLIC; Start 12/02/16 at 21:00; Stop 12/16/16 at 20:59 Imipenem/ Cilastatin Sodium (Primaxin 500 Mg/ 100 ml (Pmx)) 100 ml @ 100 mls/ hr Q8 IVPB Last administered on 12/07/16 14:56; Admin Dose 100 MLS/HR; Start 12/03/16 at 10:00 Metoprolol Tartrate (Lopressor) 50 mg BID GTB Last administered on 12/07/16 10 :51; Admin Dose 50 MG; Start 12/04/16 at 21:00 Famotidine (Pepcid) 20 mg DAILY GTB Last administered on 12/07/16 10:52; Admin Dose 20 MG; Start 12/05/16 at 09:00 Losartan Potassium (Cozaar) 25 mg BID PO Last administered on 12/07/16 10:52; Admin Dose 25 MG; Start 12/05/16 at 21:00 Hydralazine HCl 10 mg 10 mg Q6H PRN IV ELEVATED BLOOD PRESSURE Last administered on 12/06/16 16:13; Admin Dose 10 MG; Start 12/06/16 at 16:00 Vancomycin HCl (Vancocin) 250 ml @ 125 mls/hr Q24H IVPB Last administered on 06:14; Admin Dose 125 MLS/HR; Start 12/07/16 at 05:00 Assessment/Plan Additional Assessment/Plan IMP: 1. Hypoxemic respiratory failure on mechanical ventilation via tracheostomy 2. Multifocal pneumonia--likely HCAP 3. Worsening Leukocytosis--query resistant HCAP vs. new infection elsewhere. No significant concern for an empyema 4. Anemia 5. h/o CVA RECS: 1. Continue mechanical ventilation; titrate FiO2 2. Obtain ABG 3. Repeat cultures; including culture from PICC ARTIS BRUNO MD Dec 07, 2016 17:06
[2016-12-08] VITALS (24 sets, daily range): BP systolic 128–174; BP diastolic 60–93; PULSE 89–130; RESP 18–20
[2016-12-08] MEDS: morphine 2 MG INJ IV PRN ×2 (00:45→21:34)
[2016-12-08] MEDS: IMIPENEM-CILAST 500MG IV (PMX) 100 ML IVPB SCH ×3 (05:24→21:08)
[2016-12-08] MEDS: VANCOMYCIN 1 GM in NS 250 ML IVPB SCH (05:28)
[2016-12-08 06:40] LABS: ADD SCAN DIFF NO
[2016-12-08 07:03] LABS: PHOSPHORUS 3.2 mg/dl (2.5-4.9)
[2016-12-08 07:04] LABS: CREATININE 0.52 mg/dl (0.61-1.24); POTASSIUM 3.6 mmol/L (3.5-5.1)
[2016-12-08] MEDS: IPRATROPIUM (HFA) 12.9 GM INHALER INH SCH ×3 (07:45→23:49)
[2016-12-08] MEDS: LEVALBUTEROL (HFA) 15 GM INHALER INH SCH ×3 (07:46→23:50)
[2016-12-08 09:39] LABS: BASOPHIL # 0.1 10^3/ul (0.0-0.1); BASOPHILS % 0.3 % (0.0-2.0); EOSINOPHILS # 0.5 10^3/ul (0.0-0.5); EOSINOPHILS % 2.5 % (0.0-7.0); HEMATOCRIT 29.8 % (42.0-52.0); HEMOGLOBIN 8.9 g/dl (14.0-18.0); LYMPHOCYTES # 1.2 10^3/ul (0.8-2.9); LYMPHOCYTES % 5.7 % (15.0-51.0); MEAN CORPUSCULAR HEMOGLOBIN 27.6 pg (29.0-33.0); MEAN CORPUSCULAR HGB CONC 29.9 g/dl (32.0-37.0); MEAN CORPUSCULAR VOLUME 92.5 fl (82.0-101.0); MEAN PLATELET VOLUME 10.8 fl (7.4-10.4); MONOCYTE # 0.9 10^3/ul (0.3-0.9); MONOCYTES % 4.4 % (0.0-11.0); NEUTROPHIL # 17.6 10^3/ul (1.6-7.5); NEUTROPHILS % 86.4 % (39.0-77.0); PLATELET COUNT 301 10^3/UL (140-415); RED BLOOD COUNT 3.22 10^6/ul (4.70-6.10); RED CELL DISTRIBUTION WIDTH 15.3 % (11.5-14.5); WHITE BLOOD COUNT 20.3 10^3/ul (4.8-10.8)
[2016-12-08 09:42] LABS: AADO2 Arterial 241.5 mmHg (7.0-24.0); Allen Test ACCEPTAB; Arterial COHb 0.3 % (0.0-3.0); Arterial Fraction of Oxyhgb 97.7 % (93.0-99.0); Arterial HCO3 29.4 mmol/L (22.0-26.0); Arterial MetHb 0.5 % (0.0-1.5); Arterial Total Hemglobin 9.8 g/dl (12.0-18.0); MODE VENT - AC
[2016-12-08] MEDS: LOSARTAN 25 MG TAB PO SCH ×2 (10:04→21:08)
[2016-12-08] MEDS: METOPROLOL 25 MG TAB GTB SCH ×2 (10:04→21:07)
[2016-12-08] MEDS: FAMOTIDINE 20 MG TAB GTB SCH (10:04)
[2016-12-08] MEDS: COLLAGENASE 30 GM TUBE TOP SCH (10:05)
[2016-12-08] MEDS: MUPIROCIN 2% 22 GM OINT TOP SCH ×2 (10:05→21:09)
--- NOTE | 2016-12-08 10:41 | PN ---
Date/Time of Note Date/Time of Note DATE: 12/08/16 TIME: 10:29 Assessment/Plan VTE Prophylaxis VTE Prophylaxis Intervention: SCD's Lines/Catheters IV Catheter Type (from Nrsg): PICC Line Central line still needed: Yes (for IV access ) Urinary Cath still in place: Yes Reason Cath still needed: other (indicate) (monitor UOP ) Assessment/Plan Assessment/Plan 81yo man with: 1. Sepsis, Bilateral Pneumonia, HCAP vs VAP, CT chest with severe bilateral PNA and CT neck with OA WBC trending back down to 20K today, low grade fever 100.4 early this AM New sputum cx with 4+ GNR Repeat CXR 12/06 with RLL white out, effusion vs consolidation, repeat Blood cx from PICC and periph, UA/Ucx x 48 hrs. C diff pending but no diarrhea. Continue Imipenem and Vanco and follow up with further ID recs today Patient seems a little better today 2. Chronic vent-dependent respiratory failure, stable on Vent, oxygenating well. Per family has been able to have some puree at subacute facility[facility] while on the vent? Continue Vancomycin and Imipenem until ID recs Appreciate Pulmonary recommendations 3. Hypokalemia/Hypomagnesemia: Repleting Mag and K prn 4. Severe Anemia, possible GI bleeding, Unclear source for now. Hb 9.7. No evidence for active bleeding for now. Resumed Iron supplement. 5. Elevated troponins in setting of a fib with RVR and sepsis, CAD HR controlled with Bblocker, up to 50 mg po bid. Appreciate Cardiology recommendations. No anticoag due to Anemia 6. Neck pain but actually no rigidity as patient with good ROM but c spine pain : CT neck with severe OA, no other acute findings. 7. MRSA nares: Bactroban, on Vancomycin already 8. Hypertension: Continue Metoprolol at 50 mg po bid and Losartan added for better BP control Prophylaxis: Continue SCDs and Famotidine Disposition: On contact isolation and Telemetry. Continue current care. Follow up ID and pulmonary recs. DNR Subjective 24 Hr Interval Summary Free Text/Dictation Patient sleeping, easily arousable, awake and no complaints today Low grade fever in AM 100.4, now afebrile and WBC down to 20K this AM All repeat cx negative except Sputum with GNR 4+ Exam/Review of Systems Vital Signs Vitals Vital Signs Date Time Temp Pulse Resp B/P Pulse Ox O2 Delivery O2 Flow Rate FiO2 12/08/16 09:30 126 18 99 60 12/08/16 06:50 98.1 142/65 12/06/16 06:57 Room Air Intake and Output 12/07/16 12/07/16 12/08/16 15:00 23:00 07:00 Intake Total 250 ml 1120 ml 804 ml Output Total 200 ml 600 ml Balance 250 ml 920 ml 204 ml Exam Constitutional: alert, frail, oriented, other (s/p trach and on Vent) Respiratory: clear to auscultation, normal air movement Cardiovascular: irregular rhythm (A fib with occasional RVR but currently controlled ), nl pulses Gastrointestinal: non-tender, soft Musculoskeletal: nl extremities to inspection Extremities: normal pulses, other (no edema, clubbing or cyanosis ) Neurological: AS400 ANALYST II-XII intact, nl mental status, other (generalised weakness , s/p trach and on Vent ) Results Result Diagram: 12/08/16 0540 12/08/16 0540 Results 24 hrs Laboratory Tests Test 12/08/16 05:40 12/08/16 08:00 White Blood Count 20.3 #H Red Blood Count 3.22 L Hemoglobin 8.9 L Hematocrit 29.8 L Mean Corpuscular Volume 92.5 Mean Corpuscular Hemoglobin 27.6 L Mean Corpuscular Hemoglobin Concent 29.9 L Red Cell Distribution Width 15.3 H Platelet Count 301 Mean Platelet Volume 10.8 H Neutrophils % 86.4 H Lymphocytes % 5.7 L Monocytes % 4.4 Eosinophils % 2.5 Basophils % 0.3 Nucleated Red Blood Cells % 0.0 Neutrophils # 17.6 H Lymphocytes # 1.2 Monocytes # 0.9 Eosinophils # 0.5 Basophils # 0.1 Nucleated Red Blood Cells # 0.0 Sodium Level 137 Potassium Level 3.6 Chloride Level 104 Carbon Dioxide Level 31 Anion Gap 6 L Blood Urea Nitrogen 27 H Creatinine 0.52 L Glucose Level 147 Calcium Level 9.0 Phosphorus Level 3.2 Magnesium Level 2.0 Blood Gas Specimen Source Blood arterial Arterial Blood Date Drawn 12/08/2016 8:50:43 AM Arterial Blood pH (Temp corrected) 7.401 Arterial Blood pCO2 (Temp correct) 48.4 H Arterial Blood pO2 (Temp corrected) 133.1 H Arterial Blood HCO3 29.4 H Arterial Blood Base Excess 4.0 H Arterial Blood Oxygen Saturation 98.5 Russell Test ACCEPTAB Arterial Blood Gas Puncture Site Right Radial Arterial Blood Carboxyhemoglobin 0.3 Arterial Blood Methemoglobin 0.5 Blood Gas A-a O2 Differential 241.5 H Oxyhemoglobin Percent 97.7 Total Hemoglobin 9.8 L Blood Gas Temperature 37.0 Blood Gas Respiration Rate 18.0 Blood Gas Actual Respiration Rate 18 Blood Gas Modality VENT - AC FiO2 60.0 Blood Gas Tidal Volume 550.0 Blood Gas Low PEEP Setting 5.0 Blood Gas Notified Whom DT Blood Gas Notified Time 12/08/2016 9:41:53 AM Medications Medications Current Medications Acetaminophen (Tylenol Tab) 650 mg Q6H PRN PEG PAIN LEVEL 1-3 OR FEVER Last administered on 12/07/16 14:56; Admin Dose 650 MG; Start 11/30/16 at 05:00 Morphine Sulfate (morphine) 2 mg Q4H PRN IV PAIN LEVEL 7-10 Last administered on 12/08/16 00:45; Admin Dose 2 MG; Start 11/30/16 at 05:00 Miscellaneous Information 1 ea NOTE XX ; Start 11/30/16 at 05:00 Glucose (Glutose) 15 gm Q15M PRN PO DECREASED GLUCOSE; Start 11/30/16 at 05:00 Glucose (Glutose) 22.5 gm Q15M PRN PO DECREASED GLUCOSE; Start 11/30/16 at 05: 00 Dextrose (D50w Syringe) 25 ml Q15M PRN IV DECREASED GLUCOSE; Start 11/30/16 at 05:00 Dextrose (D50w Syringe) 50 ml Q15M PRN IV DECREASED GLUCOSE; Start 11/30/16 at 05:00 Glucagon (Glucagen) 1 mg Q15M PRN IM DECREASED GLUCOSE; Start 11/30/16 at 05:00 Glucose (Glutose) 15 gm Q15M PRN BUCCAL DECREASED GLUCOSE; Start 11/30/16 at 05 :00 Metoprolol Tartrate (Lopressor) 2.5 mg Q2H PRN IV heart rate over 110 Last administered on 12/07/16 04:17; Admin Dose 2.5 MG; Start 12/01/16 at 12:00 Miscellaneous [facility] This patient anton... PRN PRN XX WOUND CARE; Start 12/02/16 at 11:30 Collagenase (Santyl) 1 applic DAILY TOP Last administered on 12/08/16 10:05; Admin Dose 1 APPLIC; Start 12/02/16 at 12:00 Collagenase (Santyl) 1 applic DAILY PRN TOP PER WOUND CARE ORDERS; Start at 11:30 Mupirocin 1 applic 1 applic BID TOP Last administered on 12/08/16 10:05; Admin Dose 1 APPLIC; Start 12/02/16 at 21:00; Stop 12/16/16 at 20:59 Imipenem/ Cilastatin Sodium (Primaxin 500 Mg/ 100 ml (Pmx)) 100 ml @ 100 mls/ hr Q8 IVPB Last administered on 12/08/16 05:24; Admin Dose 100 MLS/HR; Start 12/03/16 at 10:00 Metoprolol Tartrate (Lopressor) 50 mg BID GTB Last administered on 12/08/16 10 :04; Admin Dose 50 MG; Start 12/04/16 at 21:00 Famotidine (Pepcid) 20 mg DAILY GTB Last administered on 12/08/16 10:04; Admin Dose 20 MG; Start 12/05/16 at 09:00 Losartan Potassium (Cozaar) 25 mg BID PO Last administered on 12/08/16 10:04; Admin Dose 25 MG; Start 12/05/16 at 21:00 Hydralazine HCl 10 mg 10 mg Q6H PRN IV ELEVATED BLOOD PRESSURE Last administered on 12/06/16 16:13; Admin Dose 10 MG; Start 12/06/16 at 16:00 Vancomycin HCl (Vancocin) 250 ml @ 125 mls/hr Q24H IVPB Last administered on 05:28; Admin Dose 125 MLS/HR; Start 12/07/16 at 05:00 CHARLETTE RUTHERFORD Dec 08, 2016 10:39
[2016-12-08] MEDS: ACETAMINOPHEN 325 MG TAB PEG PRN ×2 (10:59→21:34)
--- NOTE | 2016-12-08 16:58 | CONS ---
Date/Time of Note Date/Time of Note DATE: 12/08/16 TIME: 16:57 Consult Date/Type/Reason Admit Date/Time Nov 30, 2016 at 04:54 Initial Consult Date 12/01/16 Type of Consultation: Pulm Ordering Provider: CHARLETTE RUTHERFORD Subjective On vent; responsive. Objective Vital Signs Date Time Temp Pulse Resp B/P Pulse Ox O2 Delivery O2 Flow Rate FiO2 12/08/16 16:33 91 12/08/16 15:37 97.9 19 129/60 98 12/08/16 15:20 50 12/06/16 06:57 Room Air Intake and Output 12/07/16 12/07/16 12/08/16 15:00 23:00 07:00 Intake Total 250 ml 1120 ml 804 ml Output Total 200 ml 600 ml Balance 250 ml 920 ml 204 ml Exam HEENT: Pupils equal, round, and reactive to light. Tracheostomy site clean and intact. CARDIAC: RRR, S1 and S2 CHEST: Coarse rhonchi b/l ABDOMEN: Mildly distended. Diminished bowel sounds no guarding or rebound EXTREMITIES: No cyanosis, clubbing or edema. Results/Medications Result Diagram: 12/08/16 0540 12/08/16 0540 Results 24 hrs Laboratory Tests Test 12/08/16 05:40 12/08/16 08:00 White Blood Count 20.3 #H Red Blood Count 3.22 L Hemoglobin 8.9 L Hematocrit 29.8 L Mean Corpuscular Volume 92.5 Mean Corpuscular Hemoglobin 27.6 L Mean Corpuscular Hemoglobin Concent 29.9 L Red Cell Distribution Width 15.3 H Platelet Count 301 Mean Platelet Volume 10.8 H Neutrophils % 86.4 H Lymphocytes % 5.7 L Monocytes % 4.4 Eosinophils % 2.5 Basophils % 0.3 Nucleated Red Blood Cells % 0.0 Neutrophils # 17.6 H Lymphocytes # 1.2 Monocytes # 0.9 Eosinophils # 0.5 Basophils # 0.1 Nucleated Red Blood Cells # 0.0 Sodium Level 137 Potassium Level 3.6 Chloride Level 104 Carbon Dioxide Level 31 Anion Gap 6 L Blood Urea Nitrogen 27 H Creatinine 0.52 L Glucose Level 147 Calcium Level 9.0 Phosphorus Level 3.2 Magnesium Level 2.0 Blood Gas Specimen Source Blood arterial Arterial Blood Date Drawn 12/08/2016 8:50:43 AM Arterial Blood pH (Temp corrected) 7.401 Arterial Blood pCO2 (Temp correct) 48.4 H Arterial Blood pO2 (Temp corrected) 133.1 H Arterial Blood HCO3 29.4 H Arterial Blood Base Excess 4.0 H Arterial Blood Oxygen Saturation 98.5 Russell Test ACCEPTAB Arterial Blood Gas Puncture Site Right Radial Arterial Blood Carboxyhemoglobin 0.3 Arterial Blood Methemoglobin 0.5 Blood Gas A-a O2 Differential 241.5 H Oxyhemoglobin Percent 97.7 Total Hemoglobin 9.8 L Blood Gas Temperature 37.0 Blood Gas Respiration Rate 18.0 Blood Gas Actual Respiration Rate 18 Blood Gas Modality VENT - AC FiO2 60.0 Blood Gas Tidal Volume 550.0 Blood Gas Low PEEP Setting 5.0 Blood Gas Notified Whom DT Blood Gas Notified Time 12/08/2016 9:41:53 AM Medications Current Medications Acetaminophen (Tylenol Tab) 650 mg Q6H PRN PEG PAIN LEVEL 1-3 OR FEVER Last administered on 12/08/16 10:59; Admin Dose 650 MG; Start 11/30/16 at 05:00 Morphine Sulfate (morphine) 2 mg Q4H PRN IV PAIN LEVEL 7-10 Last administered on 12/08/16 00:45; Admin Dose 2 MG; Start 11/30/16 at 05:00 Miscellaneous Information 1 ea NOTE XX ; Start 11/30/16 at 05:00 Glucose (Glutose) 15 gm Q15M PRN PO DECREASED GLUCOSE; Start 11/30/16 at 05:00 Glucose (Glutose) 22.5 gm Q15M PRN PO DECREASED GLUCOSE; Start 11/30/16 at 05: 00 Dextrose (D50w Syringe) 25 ml Q15M PRN IV DECREASED GLUCOSE; Start 11/30/16 at 05:00 Dextrose (D50w Syringe) 50 ml Q15M PRN IV DECREASED GLUCOSE; Start 11/30/16 at 05:00 Glucagon (Glucagen) 1 mg Q15M PRN IM DECREASED GLUCOSE; Start 11/30/16 at 05:00 Glucose (Glutose) 15 gm Q15M PRN BUCCAL DECREASED GLUCOSE; Start 11/30/16 at 05 :00 Metoprolol Tartrate (Lopressor) 2.5 mg Q2H PRN IV heart rate over 110 Last administered on 12/07/16 04:17; Admin Dose 2.5 MG; Start 12/01/16 at 12:00 Miscellaneous Information (Pending Santyl Order For Wound Care) This patient anton... PRN PRN XX WOUND CARE; Start 12/02/16 at 11:30 Collagenase (Santyl) 1 applic DAILY TOP Last administered on 12/08/16 10:05; Admin Dose 1 APPLIC; Start 12/02/16 at 12:00 Collagenase (Santyl) 1 applic DAILY PRN TOP PER WOUND CARE ORDERS; Start at 11:30 Mupirocin 1 applic 1 applic BID TOP Last administered on 12/08/16 10:05; Admin Dose 1 APPLIC; Start 12/02/16 at 21:00; Stop 12/16/16 at 20:59 Imipenem/ Cilastatin Sodium (Primaxin 500 Mg/ 100 ml (Pmx)) 100 ml @ 100 mls/ hr Q8 IVPB Last administered on 12/08/16 15:09; Admin Dose 100 MLS/HR; Start 12/03/16 at 10:00 Metoprolol Tartrate (Lopressor) 50 mg BID GTB Last administered on 12/08/16 10 :04; Admin Dose 50 MG; Start 12/04/16 at 21:00 Famotidine (Pepcid) 20 mg DAILY GTB Last administered on 12/08/16 10:04; Admin Dose 20 MG; Start 12/05/16 at 09:00 Losartan Potassium (Cozaar) 25 mg BID PO Last administered on 12/08/16 10:04; Admin Dose 25 MG; Start 12/05/16 at 21:00 Hydralazine HCl 10 mg 10 mg Q6H PRN IV ELEVATED BLOOD PRESSURE Last administered on 12/06/16 16:13; Admin Dose 10 MG; Start 12/06/16 at 16:00 Vancomycin HCl (Vancocin) 250 ml @ 125 mls/hr Q24H IVPB Last administered on 05:28; Admin Dose 125 MLS/HR; Start 12/07/16 at 05:00 Assessment/Plan Additional Assessment/Plan IMP: 1. Hypoxemic respiratory failure on mechanical ventilation via tracheostomy 2. Multifocal pneumonia--likely HCAP 3. Worsening Leukocytosis--query resistant HCAP vs. new infection elsewhere. No significant concern for an empyema 4. Anemia 5. h/o CVA RECS: 1. Continue mechanical ventilation; titrate FiO2 down to 40% as tolerated 2. Continue Abx 3. follow-up repeat cultures ARTIS BRUNO MD Dec 08, 2016 16:58
--- NOTE | 2016-12-08 21:19 | CONS ---
Date/Time of Note Date/Time of Note DATE: 12/08/16 TIME: 21:15 Assessment/Plan Assessment/Plan Chief Complaint/Hosp Course ID PROGRESS NOTE TOTAL ABX DAY # 9 => Vanco IV + Primaxin 24H INTERVAL SUMMARY * Low grade [id number] * Trach Cx (+)GNR-> Pending * Decub (+)GNR -> Pending * 81 M w/Trach->Vented, lethargic -- rounding late pm * Chart reviewed -> BCx(-), Urine Cx(-); (+)MRSA Nares DIAGNOSTIC IMAGING * 12/07/15 CXR: IMPRESSION:1. Interval increase in moderate right pleural effusion with associated atelectasis. 2. Atherosclerosis with stable mild to moderate pulmonary vascular congestion. * CT 12/03/16 IMPRESSION: * 1. Severe dense confluent multifocal consolidation scattered throughout the lungs consistent with widespread diffuse pneumonia. * 2. Extensive mediastinal and hilar adenopathy with adenopathy extending to the supraclavicular laura stations bilaterally. * 3. Tiny layering effusions within the posterior lung bases bilaterally. * 4. Tracheostomy tube in place, in good location within the trachea above the nehemiah. * 5. Left-sided PICC line in good position with the tip in the superior vena cava. 6. 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 PHYSICAL EXAMINATION: GENERAL: Frail 81 yo elder M w/chronic debility on the Vent, VSS, NAD HEENT: Unremarkable except no teeth NECK: Supple, trach->clean stoma and secure to Vent CHEST: Equal chest rise bilaterally, without dyspnea on observation HEART: Pulse RRR ABDOMEN: Soft, benign., peg EXTREMITIES: Warm, dry, muscle atrophy, missing finger digits SKIN: Warm, dry ID ASSESSMENT: 81 yo M w/PMHx CVA w/right hemiplegia, dementia, dysphagia-PEG, VDRF, admitted with: 1. Systemic inflammatory response syndrome with low grade temperatures, leukocytosis * WBC rising w/low grade temps 2. Healthcare-associated pneumonia: presumptive MRSA * Sputum (+)GNR pending 3. Right pleural effusion. 4. 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 GERD ?Gastroparesis? 7. BPH w/suspected urinary retention - indwelling FC 8. CKD 9. Sacral decub III = present on admission => (+)GNR Pending 10. QUERY: ?Early UTI w/trace leuk esterase, pyuria on UA 12/06/16 11. LUEXT PICC = present on admission INVASIVES: * Trach, Peg, FC, PICC->11/30/17 ABX ALLERGIES: KNDA CURRENT ABX: # 9 => Vanco IV + Primaxin s/p Zosyn in ED ID RECOMMENDATIONS: 1. Continue current ABX -> Await results of respiratory cx pending 2. Check stool for CDiff toxin due to rising WBC > 30,000 3. Sacral decub looks clean -- (+)GNR growing . . . Problems: Consultation Date/Type/Reason Admit Date/Time Nov 30, 2016 at 04:54 Initial Consult Date 12/01/16 Type of Consultation: ID Referring Provider: CHARLETTE RUTHERFORD Exam/Review of Systems Vital Signs Vitals Vital Signs Date Time Temp Pulse Resp B/P Pulse Ox O2 Delivery O2 Flow Rate FiO2 12/08/16 19:52 100.0 121 20 174/93 97 12/08/16 17:45 50 12/06/16 06:57 Room Air Intake and Output 12/07/16 12/07/16 12/08/16 15:00 23:00 07:00 Intake Total 250 ml 1120 ml 804 ml Output Total 200 ml 600 ml Balance 250 ml 920 ml 204 ml Results Result Diagram: 12/08/16 0540 12/08/16 0540 Results 24 hrs Laboratory Tests Test 12/08/16 05:40 12/08/16 08:00 White Blood Count 20.3 #H Red Blood Count 3.22 L Hemoglobin 8.9 L Hematocrit 29.8 L Mean Corpuscular Volume 92.5 Mean Corpuscular Hemoglobin 27.6 L Mean Corpuscular Hemoglobin Concent 29.9 L Red Cell Distribution Width 15.3 H Platelet Count 301 Mean Platelet Volume 10.8 H Neutrophils % 86.4 H Lymphocytes % 5.7 L Monocytes % 4.4 Eosinophils % 2.5 Basophils % 0.3 Nucleated Red Blood Cells % 0.0 Neutrophils # 17.6 H Lymphocytes # 1.2 Monocytes # 0.9 Eosinophils # 0.5 Basophils # 0.1 Nucleated Red Blood Cells # 0.0 Sodium Level 137 Potassium Level 3.6 Chloride Level 104 Carbon Dioxide Level 31 Anion Gap 6 L Blood Urea Nitrogen 27 H Creatinine 0.52 L Glucose Level 147 Calcium Level 9.0 Phosphorus Level 3.2 Magnesium Level 2.0 Blood Gas Specimen Source Blood arterial Arterial Blood Date Drawn 12/08/2016 8:50:43 AM Arterial Blood pH (Temp corrected) 7.401 Arterial Blood pCO2 (Temp correct) 48.4 H Arterial Blood pO2 (Temp corrected) 133.1 H Arterial Blood HCO3 29.4 H Arterial Blood Base Excess 4.0 H Arterial Blood Oxygen Saturation 98.5 Russell Test ACCEPTAB Arterial Blood Gas Puncture Site Right Radial Arterial Blood Carboxyhemoglobin 0.3 Arterial Blood Methemoglobin 0.5 Blood Gas A-a O2 Differential 241.5 H Oxyhemoglobin Percent 97.7 Total Hemoglobin 9.8 L Blood Gas Temperature 37.0 Blood Gas Respiration Rate 18.0 Blood Gas Actual Respiration Rate 18 Blood Gas Modality VENT - AC FiO2 60.0 Blood Gas Tidal Volume 550.0 Blood Gas Low PEEP Setting 5.0 Blood Gas Notified Whom DT Blood Gas Notified Time 12/08/2016 9:41:53 AM Medications Medications Current Medications Acetaminophen (Tylenol Tab) 650 mg Q6H PRN PEG PAIN LEVEL 1-3 OR FEVER Last administered on 12/08/16 10:59; Admin Dose 650 MG; Start 11/30/16 at 05:00 Morphine Sulfate (morphine) 2 mg Q4H PRN IV PAIN LEVEL 7-10 Last administered on 12/08/16 00:45; Admin Dose 2 MG; Start 11/30/16 at 05:00 Miscellaneous Information 1 ea NOTE XX ; Start 11/30/16 at 05:00 Glucose (Glutose) 15 gm Q15M PRN PO DECREASED GLUCOSE; Start 11/30/16 at 05:00 Glucose (Glutose) 22.5 gm Q15M PRN PO DECREASED GLUCOSE; Start 11/30/16 at 05: 00 Dextrose (D50w Syringe) 25 ml Q15M PRN IV DECREASED GLUCOSE; Start 11/30/16 at 05:00 Dextrose (D50w Syringe) 50 ml Q15M PRN IV DECREASED GLUCOSE; Start 11/30/16 at 05:00 Glucagon (Glucagen) 1 mg Q15M PRN IM DECREASED GLUCOSE; Start 11/30/16 at 05:00 Glucose (Glutose) 15 gm Q15M PRN BUCCAL DECREASED GLUCOSE; Start 11/30/16 at 05 :00 Metoprolol Tartrate (Lopressor) 2.5 mg Q2H PRN IV heart rate over 110 Last administered on 12/07/16 04:17; Admin Dose 2.5 MG; Start 12/01/16 at 12:00 Miscellaneous Information (Pending Santyl Order For Wound Care) This patient anton... PRN PRN XX WOUND CARE; Start 12/02/16 at 11:30 Collagenase (Santyl) 1 applic DAILY TOP Last administered on 12/08/16 10:05; Admin Dose 1 APPLIC; Start 12/02/16 at 12:00 Collagenase (Santyl) 1 applic DAILY PRN TOP PER WOUND CARE ORDERS; Start at 11:30 Mupirocin 1 applic 1 applic BID TOP Last administered on 12/08/16 21:09; Admin Dose 1 APPLIC; Start 12/02/16 at 21:00; Stop 12/16/16 at 20:59 Imipenem/ Cilastatin Sodium (Primaxin 500 Mg/ 100 ml (Pmx)) 100 ml @ 100 mls/ hr Q8 IVPB Last administered on 12/08/16 21:08; Admin Dose 100 MLS/HR; Start 12/03/16 at 10:00 Metoprolol Tartrate (Lopressor) 50 mg BID GTB Last administered on 12/08/16 21 :07; Admin Dose 50 MG; Start 12/04/16 at 21:00 Famotidine (Pepcid) 20 mg DAILY GTB Last administered on 12/08/16 10:04; Admin Dose 20 MG; Start 12/05/16 at 09:00 Losartan Potassium (Cozaar) 25 mg BID PO Last administered on 12/08/16 21:08; Admin Dose 25 MG; Start 12/05/16 at 21:00 Hydralazine HCl 10 mg 10 mg Q6H PRN IV ELEVATED BLOOD PRESSURE Last administered on 12/06/16 16:13; Admin Dose 10 MG; Start 12/06/16 at 16:00 Vancomycin HCl (Vancocin) 250 ml @ 125 mls/hr Q24H IVPB Last administered on t 05:28; Admin Dose 125 MLS/HR; Start 12/07/16 at 05:00 OSEI BLACKWOOD NP Dec 08, 2016 21:19
[2016-12-09] VITALS (25 sets, daily range): BP systolic 111–168; BP diastolic 54–75; PULSE 86–130; RESP 18–22
[2016-12-09] MEDS: morphine 2 MG INJ IV PRN ×2 (03:59→16:32)
[2016-12-09] MEDS: ACETAMINOPHEN 325 MG TAB PEG PRN ×2 (03:59→15:28)
[2016-12-09] MEDS: VANCOMYCIN 1 GM in NS 250 ML IVPB SCH (04:00)
[2016-12-09] MEDS: IMIPENEM-CILAST 500MG IV (PMX) 100 ML IVPB SCH ×2 (06:09→13:27)
[2016-12-09] MEDS: IPRATROPIUM (HFA) 12.9 GM INHALER INH SCH ×3 (07:32→23:14)
[2016-12-09] MEDS: LEVALBUTEROL (HFA) 15 GM INHALER INH SCH ×3 (07:33→23:14)
[2016-12-09 07:39] LABS: ADD SCAN DIFF NO
[2016-12-09 07:50] LABS: ABNORMAL IP MESSAGE 1; HEMATOCRIT 28.3 % (42.0-52.0); HEMOGLOBIN 8.5 g/dl (14.0-18.0); MEAN CORPUSCULAR HEMOGLOBIN 27.9 pg (29.0-33.0); MEAN CORPUSCULAR VOLUME 92.8 fl (82.0-101.0); MEAN PLATELET VOLUME 10.6 fl (7.4-10.4); PLATELET COUNT 294 10^3/UL (140-415); RED BLOOD COUNT 3.05 10^6/ul (4.70-6.10); RED CELL DISTRIBUTION WIDTH 15.3 % (11.5-14.5); WHITE BLOOD COUNT 27.4 10^3/ul (4.8-10.8)
[2016-12-09 07:56] LABS: MAGNESIUM 1.9 mg/dl (1.7-2.5); PHOSPHORUS 2.9 mg/dl (2.5-4.9)
[2016-12-09 07:57] LABS: POTASSIUM 3.2 mmol/L (3.5-5.1)
[2016-12-09 08:00] LABS: CREATININE 0.49 mg/dl (0.61-1.24)
[2016-12-09 08:01] LABS: CALCIUM 8.9 mg/dl (8.4-10.2)
[2016-12-09] MEDS ORDERED: POTASSIUM CHLORIDE 20 MEQ POWDER FOR ORAL SOLN PO ONE (10:30)
[2016-12-09] MEDS: LOSARTAN 25 MG TAB PO SCH ×2 (10:35→21:27)
[2016-12-09] MEDS: COLLAGENASE 30 GM TUBE TOP SCH (10:35)
[2016-12-09] MEDS: FAMOTIDINE 20 MG TAB GTB SCH (10:35)
[2016-12-09] MEDS: METOPROLOL 25 MG TAB GTB SCH ×2 (10:35→21:26)
[2016-12-09] MEDS: MUPIROCIN 2% 22 GM OINT TOP SCH ×2 (10:36→21:27)
--- NOTE | 2016-12-09 11:33 | CONS ---
Date/Time of Note Date/Time of Note DATE: 12/09/16 TIME: 11:32 Consult Date/Type/Reason Admit Date/Time Nov 30, 2016 at 04:54 Initial Consult Date 12/01/16 Type of Consultation: pulmonary Ordering Provider: CHARLETTE RUTHERFORD Subjective No significant changes remains somnolent on mechanical ventilation Objective Vital Signs Date Time Temp Pulse Resp B/P Pulse Ox O2 Delivery O2 Flow Rate FiO2 12/09/16 11:00 101 19 96 50 12/09/16 07:23 99.7 111/54 12/06/16 06:57 Room Air Intake and Output 12/08/16 12/08/16 12/09/16 15:00 23:00 07:00 Intake Total 1120 ml 865 ml Output Total 800 ml 500 ml Balance 320 ml 365 ml Exam PHYSICAL EXAMINATION GENERAL: Elderly gentleman, on mechanical ventilation, opens eyes and appears somewhat agitated. VITAL SIGNS: see below. HEENT: Pupils equal, round, and reactive to light. Tracheostomy site clean and intact. CARDIAC: S1, S2, CHEST: Diminished air entry bilaterally. ABDOMEN: Mildly distended. Diminished bowel sounds no guarding or rebound EXTREMITIES: No cyanosis, clubbing or edema. NEUROLOGIC: No focal deficits. Results/Medications Result Diagram: 12/09/1660412/09/16 06 Results 24 hrs Laboratory Tests Test 12/09/16 06:05 White Blood Count 27.4 #H Red Blood Count 3.05 L Hemoglobin 8.5 L Hematocrit 28.3 L Mean Corpuscular Volume 92.8 Mean Corpuscular Hemoglobin 27.9 L Mean Corpuscular Hemoglobin Concent 30.0 L Red Cell Distribution Width 15.3 H Platelet Count 294 Mean Platelet Volume 10.6 H Sodium Level 141 Potassium Level 3.2 L Chloride Level 102 Carbon Dioxide Level 29 Anion Gap 13 # Blood Urea Nitrogen 29 H Creatinine 0.49 L Glucose Level 123 Calcium Level 8.9 Phosphorus Level 2.9 Magnesium Level 1.9 Medications Current Medications Acetaminophen (Tylenol Tab) 650 mg Q6H PRN PEG PAIN LEVEL 1-3 OR FEVER Last administered on 12/09/16 03:59; Admin Dose 650 MG; Start 11/30/16 at 05:00 Morphine Sulfate (morphine) 2 mg Q4H PRN IV PAIN LEVEL 7-10 Last administered on 12/09/16 03:59; Admin Dose 2 MG; Start 11/30/16 at 05:00 Miscellaneous Information 1 ea NOTE XX ; Start 11/30/16 at 05:00 Glucose (Glutose) 15 gm Q15M PRN PO DECREASED GLUCOSE; Start 11/30/16 at 05:00 Glucose (Glutose) 22.5 gm Q15M PRN PO DECREASED GLUCOSE; Start 11/30/16 at 05: 00 Dextrose (D50w Syringe) 25 ml Q15M PRN IV DECREASED GLUCOSE; Start 11/30/16 at 05:00 Dextrose (D50w Syringe) 50 ml Q15M PRN IV DECREASED GLUCOSE; Start 11/30/16 at 05:00 Glucagon (Glucagen) 1 mg Q15M PRN IM DECREASED GLUCOSE; Start 11/30/16 at 05:00 Glucose (Glutose) 15 gm Q15M PRN BUCCAL DECREASED GLUCOSE; Start 11/30/16 at 05 :00 Metoprolol Tartrate (Lopressor) 2.5 mg Q2H PRN IV heart rate over 110 Last administered on 12/07/16 04:17; Admin Dose 2.5 MG; Start 12/01/16 at 12:00 Collagenase (Santyl) 1 applic DAILY TOP Last administered on 12/09/16 10:35; Admin Dose 1 APPLIC; Start 12/02/16 at 12:00 Collagenase (Santyl) 1 applic DAILY PRN TOP PER WOUND CARE ORDERS; Start at 11:30 Mupirocin 1 applic 1 applic BID TOP Last administered on 12/09/16 10:36; Admin Dose 1 APPLIC; Start 12/02/16 at 21:00; Stop 12/16/16 at 20:59 Imipenem/ Cilastatin Sodium (Primaxin 500 Mg/ 100 ml (Pmx)) 100 ml @ 100 mls/ hr Q8 IVPB Last administered on 12/09/16 06:09; Admin Dose 100 MLS/HR; Start 12/03/16 at 10:00 Metoprolol Tartrate (Lopressor) 50 mg BID GTB Last administered on 12/09/16 10 :35; Admin Dose 50 MG; Start 12/04/16 at 21:00 Famotidine (Pepcid) 20 mg DAILY GTB Last administered on 12/09/16 10:35; Admin Dose 20 MG; Start 12/05/16 at 09:00 Losartan Potassium (Cozaar) 25 mg BID PO Last administered on 12/09/16 10:35; Admin Dose 25 MG; Start 12/05/16 at 21:00 Hydralazine HCl 10 mg 10 mg Q6H PRN IV ELEVATED BLOOD PRESSURE Last administered on 12/06/16 16:13; Admin Dose 10 MG; Start 12/06/16 at 16:00 Vancomycin HCl (Vancocin) 250 ml @ 125 mls/hr Q24H IVPB Last administered on 04:00; Admin Dose 125 MLS/HR; Start 12/07/16 at 05:00 Miscellaneous Information (*Rx Drug Level Order Reminder*) VANCOMYCIN TROUG LEVEL... ONCE ONCE XX ; Start 12/10/16 at 03:00; Stop 12/10/16 at 03:01 Assessment/Plan Chief Complaint/Hosp Course Assessment 1. Hypoxemic respiratory failure on mechanical ventilation via tracheostomy 2. Persistent leukocytosis likely polymicrobial sepsis 3. Mild dehydration 4. Anemia of chronic disease 5. History of CVA 6. Dysphagia with G-tube Plan 1. Continue mechanical ventilation 2. Continue broad-spectrum antibiotics 3. Tube feeding as tolerated 4. Correction of electrolyte abnormalities 5. DVT GI prophylaxis Disposition Continue telemetry care Problems: JOSEF EHRRING MD, [facility] Dec 09, 2016 11:33
[2016-12-09 12:57] LABS: EOSINOPHILS # 0.3 10^3/ul (0.0-0.5); LYMPHOCYTES # 0.5 10^3/ul (0.8-2.9); MONOCYTE # 0.8 10^3/ul (0.3-0.9); NEUTROPHIL # 23.6 10^3/ul (1.6-7.5)
--- NOTE | 2016-12-09 14:05 | PN ---
Date/Time of Note Date/Time of Note DATE: 12/09/16 TIME: 13:45 Assessment/Plan VTE Prophylaxis VTE Prophylaxis Intervention: SCD's Lines/Catheters IV Catheter Type (from Nrsg): PICC Line Central line still needed: Yes (for IV access ) Urinary Cath still in place: Yes Reason Cath still needed: other (indicate) (to monitor UOP ) Assessment/Plan Assessment/Plan 81yo man with: 1. Sepsis, Bilateral Pneumonia, HCAP vs VAP, CT chest with severe bilateral PNA and CT neck with OA WBC trending back down to 27K today, low grade fevers still, lethargic today and new sputum cx with MDR Pseudomonas only sensitive to Ceftaz Abx changed today and will continue Vanco for now. Repeat Blood cx from PICC and periph, UA/Ucx NGTD x 48 hrs. C diff pending but no diarrhea. Follow up further ID recs today. 2. Chronic vent-dependent respiratory failure, stable on Vent, oxygenating well. Per family has been able to have some puree at [facility]acute facility[facility] while on the vent? Continue Vancomycin and now on Ceftaz, follow up further ID recs Appreciate Pulmonary recommendations 3. Hypokalemia/Hypomagnesemia: Repleting Mag and K prn 4. Severe Anemia, possible GI bleeding, Unclear source for now. Hb 9.7. No evidence for active bleeding for now. Resumed Iron supplement. 5. Elevated troponins in setting of a fib with RVR and sepsis, CAD HR controlled with Bblocker, up to 50 mg po bid. Appreciate Cardiology recommendations. No anticoag due to Anemia 6. Neck pain but actually no rigidity as patient with good ROM but c spine pain : CT neck with severe OA, no other acute findings. 7. MRSA nares: Bactroban, on Vancomycin already 8. Sacral Decub, seems to be healing well per RN and wound care but cx back with Staph Aureus, GNR ...continue Vanco and now Ceftaz 9. Hypertension: Continue Metoprolol at 50 mg po bid and Losartan added for better BP control Prophylaxis: Continue SCDs and Famotidine Disposition: On contact isolation and Telemetry. Continue current care. Follow up ID and pulmonary recs. DNR Subjective 24 Hr Interval Summary Free Text/Dictation Patient more lethargic today, low grade fever again and WBC very variable Sputum cx back with Pseudomonas MDR, only sensitive to Ceftaz Exam/Review of Systems Vital Signs Vitals Vital Signs Date Time Temp Pulse Resp B/P Pulse Ox O2 Delivery O2 Flow Rate FiO2 12/09/16 12:00 86 12/09/16 11:43 97.4 20 139/66 96 12/09/16 11:00 50 12/06/16 06:57 Room Air Intake and Output 12/08/16 12/08/16 12/09/16 15:00 23:00 07:00 Intake Total 1120 ml 865 ml Output Total 800 ml 500 ml Balance 320 ml 365 ml Exam Constitutional: other (lethargic ) Respiratory: diminished breath sounds (b/l but better air movement) Cardiovascular: other (tachy on/off), regular rate and rhythm Gastrointestinal: other (tolerating TF), soft Musculoskeletal: other (bed bound ) Extremities: normal pulses, other (no edema, clubbing or cyanosis ) Neurological: lethargic Skin: other (rash, some pustular on face and neck ) Results Result Diagram: 12/09/1660412/09/16 0605 Results 24 hrs Laboratory Tests Test 12/09/16 06:05 White Blood Count 27.4 #H Red Blood Count 3.05 L Hemoglobin 8.5 L Hematocrit 28.3 L Mean Corpuscular Volume 92.8 Mean Corpuscular Hemoglobin 27.9 L Mean Corpuscular Hemoglobin Concent 30.0 L Red Cell Distribution Width 15.3 H Platelet Count 294 Mean Platelet Volume 10.6 H Neutrophils % 86.0 H Band Neutrophils % 8.0 H Lymphocytes % 2.0 L Monocytes % 3.0 Eosinophils % 1.0 Neutrophils # 23.6 H Lymphocytes # 0.5 L Monocytes # 0.8 Eosinophils # 0.3 Sodium Level 141 Potassium Level 3.2 L Chloride Level 102 Carbon Dioxide Level 29 Anion Gap 13 # Blood Urea Nitrogen 29 H Creatinine 0.49 L Glucose Level 123 Calcium Level 8.9 Phosphorus Level 2.9 Magnesium Level 1.9 Medications Medications Current Medications Acetaminophen (Tylenol Tab) 650 mg Q6H PRN PEG PAIN LEVEL 1-3 OR FEVER Last administered on 12/09/16 03:59; Admin Dose 650 MG; Start 11/30/16 at 05:00 Morphine Sulfate (morphine) 2 mg Q4H PRN IV PAIN LEVEL 7-10 Last administered on 12/09/16 03:59; Admin Dose 2 MG; Start 11/30/16 at 05:00 Miscellaneous Information 1 ea NOTE XX ; Start 11/30/16 at 05:00 Glucose (Glutose) 15 gm Q15M PRN PO DECREASED GLUCOSE; Start 11/30/16 at 05:00 Glucose (Glutose) 22.5 gm Q15M PRN PO DECREASED GLUCOSE; Start 11/30/16 at 05: 00 Dextrose (D50w Syringe) 25 ml Q15M PRN IV DECREASED GLUCOSE; Start 11/30/16 at 05:00 Dextrose (D50w Syringe) 50 ml Q15M PRN IV DECREASED GLUCOSE; Start 11/30/16 at 05:00 Glucagon (Glucagen) 1 mg Q15M PRN IM DECREASED GLUCOSE; Start 11/30/16 at 05:00 Glucose (Glutose) 15 gm Q15M PRN BUCCAL DECREASED GLUCOSE; Start 11/30/16 at 05 :00 Metoprolol Tartrate (Lopressor) 2.5 mg Q2H PRN IV heart rate over 110 Last administered on 12/07/16 04:17; Admin Dose 2.5 MG; Start 12/01/16 at 12:00 Collagenase (Santyl) 1 applic DAILY TOP Last administered on 12/09/16 10:35; Admin Dose 1 APPLIC; Start 12/02/16 at 12:00 Collagenase (Santyl) 1 applic DAILY PRN TOP PER WOUND CARE ORDERS; Start at 11:30 Mupirocin 1 applic 1 applic BID TOP Last administered on 12/09/16 10:36; Admin Dose 1 APPLIC; Start 12/02/16 at 21:00; Stop 12/16/16 at 20:59 Imipenem/ Cilastatin Sodium (Primaxin 500 Mg/ 100 ml (Pmx)) 100 ml @ 100 mls/ hr Q8 IVPB Last administered on 12/09/16 06:09; Admin Dose 100 MLS/HR; Start 12/03/16 at 10:00 Metoprolol Tartrate (Lopressor) 50 mg BID GTB Last administered on 12/09/16 10 :35; Admin Dose 50 MG; Start 12/04/16 at 21:00 Famotidine (Pepcid) 20 mg DAILY GTB Last administered on 12/09/16 10:35; Admin Dose 20 MG; Start 12/05/16 at 09:00 Losartan Potassium (Cozaar) 25 mg BID PO Last administered on 12/09/16 10:35; Admin Dose 25 MG; Start 12/05/16 at 21:00 Hydralazine HCl 10 mg 10 mg Q6H PRN IV ELEVATED BLOOD PRESSURE Last administered on 12/06/16 16:13; Admin Dose 10 MG; Start 12/06/16 at 16:00 Vancomycin HCl (Vancocin) 250 ml @ 125 mls/hr Q24H IVPB Last administered on 04:00; Admin Dose 125 MLS/HR; Start 12/07/16 at 05:00 Miscellaneous Information (*Rx Drug Level Order Reminder*) VANCOMYCIN TROUG LEVEL... ONCE ONCE XX ; Start 12/10/16 at 03:00; Stop 12/10/16 at 03:01 CHARLETTE RUTHERFORD Dec 09, 2016 13:57
[2016-12-09] MEDS: CEFTAZIDIME 2GM/50 ML (PMX) 50 ML IVPB SCH ×2 (15:29→21:27)
--- NOTE | 2016-12-09 17:41 | CONS ---
Date/Time of Note Date/Time of Note DATE: 12/09/16 TIME: 17:35 Assessment/Plan Assessment/Plan Chief Complaint/Hosp Course ID PROGRESS NOTE TOTAL ABX DAY # 10 => Vanco IV + FORTAZ #1 + Flagyl GT #1 Primaxin -> DC 12/09 24H INTERVAL SUMMARY * Low grade Orat763.0 * Trach Cx (+)GNR->ESPIRATORY CULTURE Final Organism 1 PSEUDOMONAS AERUGINOSA QUANTITY 4+ P.AERUG M.I.C. RX --------- --- AMIKACIN 32 I AZTREONAM R CEFEPIME 16 I CEFTAZIDIME 8 S CIPROFLOXACIN >=4 R GENTAMICIN >=16 R IMIPENEM >=16 R LEVOFLOXACIN >=8 R TOBRAMYCIN >=16 R PIPERACILLIN/TAZOBACTAM R * Decub (+)GNR -> Pending * WOUND CULTURE Preliminary Organism 1 GRAM NEGATIVE BUNNY QUANTITY 1+ Organism 2 NON LACTOSE FERMENTING GNR QUANTITY 2+ Organism 3 STAPHYLOCOCCUS AUREUS QUANTITY 3+ * 81 M w/Trach->Vented, lethargic -- rounding late pm * Chart reviewed -> BCx(-), Urine Cx(-); (+)MRSA Nares DIAGNOSTIC IMAGING * 12/07/15 CXR: IMPRESSION:1. Interval increase in moderate right pleural effusion with associated atelectasis. 2. Atherosclerosis with stable mild to moderate pulmonary vascular congestion. * CT 12/03/16 IMPRESSION: * 1. Severe dense confluent multifocal consolidation scattered throughout the lungs consistent with widespread diffuse pneumonia. * 2. Extensive mediastinal and hilar adenopathy with adenopathy extending to the supraclavicular laura stations bilaterally. * 3. Tiny layering effusions within the posterior lung bases bilaterally. * 4. Tracheostomy tube in place, in good location within the trachea above the nehemiah. * 5. Left-sided PICC line in good position with the tip in the superior vena cava. 6. 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 PHYSICAL EXAMINATION: GENERAL: Frail 81 yo elder M w/chronic debility on the Vent, VSS, NAD HEENT: Unremarkable except no teeth NECK: Supple, trach->clean stoma and secure to Vent CHEST: Equal chest rise bilaterally, without dyspnea on observation HEART: Pulse RRR ABDOMEN: Soft, benign., peg EXTREMITIES: Warm, dry, muscle atrophy, missing finger digits SKIN: Warm, dry ID ASSESSMENT: 81 yo M w/PMHx CVA w/right hemiplegia, dementia, dysphagia-PEG, VDRF, admitted with: 1. Systemic inflammatory response syndrome with low grade temperatures, leukocytosis * WBC rising w/low grade temps 2. Healthcare-associated pneumonia: presumptive MRSA * Sputum (+)PSAR = MDRO sensitive to Fortaz 3. Right pleural effusion. 4. 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 GERD ?Gastroparesis? 7. BPH w/suspected urinary retention - indwelling FC 8. CKD 9. Sacral decub III = present on admission WOUND CULTURE Preliminary Organism 1 GRAM NEGATIVE BUNNY Organism 2 NON LACTOSE FERMENTING GNR Organism 3 STAPHYLOCOCCUS AUREUS 10. QUERY: ?Early UTI w/trace leuk esterase, pyuria on UA 12/06/16 11. LUEXT PICC = present on admission INVASIVES: * Trach, Peg, FC, PICC->11/30/17 ABX ALLERGIES: KNDA CURRENT ABX: TOTAL ABX DAY # 10 => Vanco IV + FORTAZ #1 + Flagyl GT #1 Primaxin -> DC 12/09 s/p Zosyn in ED ID RECOMMENDATIONS: 1. Vanco IV + Fortaz (PSAR) + Flagyl (anaerobic empiric) coverage 3. Sacral decub looks clean -- (+)GNR final pending . . . . Problems: Consultation Date/Type/Reason Admit Date/Time Nov 30, 2016 at 04:54 Initial Consult Date 12/01/16 Type of Consultation: ID Referring Provider: CHARLETTE RUTHREFORD Exam/Review of Systems Vital Signs Vitals Vital Signs Date Time Temp Pulse Resp B/P Pulse Ox O2 Delivery O2 Flow Rate FiO2 12/09/16 16:35 155/70 12/09/16 16:00 122 12/09/16 15:32 99.6 20 94 12/09/16 15:04 50 12/06/16 06:57 Room Air Intake and Output 12/08/16 12/08/16 12/09/16 15:00 23:00 07:00 Intake Total 1120 ml 865 ml Output Total 800 ml 500 ml Balance 320 ml 365 ml Results Result Diagram: 12/09/1660412/09/16 06 Results 24 hrs Laboratory Tests Test 12/09/16 06:05 White Blood Count 27.4 #H Red Blood Count 3.05 L Hemoglobin 8.5 L Hematocrit 28.3 L Mean Corpuscular Volume 92.8 Mean Corpuscular Hemoglobin 27.9 L Mean Corpuscular Hemoglobin Concent 30.0 L Red Cell Distribution Width 15.3 H Platelet Count 294 Mean Platelet Volume 10.6 H Neutrophils % 86.0 H Band Neutrophils % 8.0 H Lymphocytes % 2.0 L Monocytes % 3.0 Eosinophils % 1.0 Neutrophils # 23.6 H Lymphocytes # 0.5 L Monocytes # 0.8 Eosinophils # 0.3 Sodium Level 141 Potassium Level 3.2 L Chloride Level 102 Carbon Dioxide Level 29 Anion Gap 13 # Blood Urea Nitrogen 29 H Creatinine 0.49 L Glucose Level 123 Calcium Level 8.9 Phosphorus Level 2.9 Magnesium Level 1.9 Medications Medications Current Medications Acetaminophen (Tylenol Tab) 650 mg Q6H PRN PEG PAIN LEVEL 1-3 OR FEVER Last administered on 12/09/16 15:28; Admin Dose 650 MG; Start 11/30/16 at 05:00 Morphine Sulfate (morphine) 2 mg Q4H PRN IV PAIN LEVEL 7-10 Last administered on 12/09/16 16:32; Admin Dose 2 MG; Start 11/30/16 at 05:00 Miscellaneous Information 1 ea NOTE XX ; Start 11/30/16 at 05:00 Glucose (Glutose) 15 gm Q15M PRN PO DECREASED GLUCOSE; Start 11/30/16 at 05:00 Glucose (Glutose) 22.5 gm Q15M PRN PO DECREASED GLUCOSE; Start 11/30/16 at 05: 00 Dextrose (D50w Syringe) 25 ml Q15M PRN IV DECREASED GLUCOSE; Start 11/30/16 at 05:00 Dextrose (D50w Syringe) 50 ml Q15M PRN IV DECREASED GLUCOSE; Start 11/30/16 at 05:00 Glucagon (Glucagen) 1 mg Q15M PRN IM DECREASED GLUCOSE; Start 11/30/16 at 05:00 Glucose (Glutose) 15 gm Q15M PRN BUCCAL DECREASED GLUCOSE; Start 11/30/16 at 05 :00 Metoprolol Tartrate (Lopressor) 2.5 mg Q2H PRN IV heart rate over 110 Last administered on 12/07/16 04:17; Admin Dose 2.5 MG; Start 12/01/16 at 12:00 Collagenase (Santyl) 1 applic DAILY TOP Last administered on 12/09/16 10:35; Admin Dose 1 APPLIC; Start 12/02/16 at 12:00 Collagenase (Santyl) 1 applic DAILY PRN TOP PER WOUND CARE ORDERS; Start at 11:30 Mupirocin (Bactroban) 1 applic BID TOP Last administered on 12/09/16 10:36; Admin Dose 1 APPLIC; Start 12/02/16 at 21:00; Stop 12/16/16 at 20:59 Metoprolol Tartrate (Lopressor) 50 mg BID GTB Last administered on 12/09/16 10 :35; Admin Dose 50 MG; Start 12/04/16 at 21:00 Famotidine (Pepcid) 20 mg DAILY GTB Last administered on 12/09/16 10:35; Admin Dose 20 MG; Start 12/05/16 at 09:00 Losartan Potassium (Cozaar) 25 mg BID PO Last administered on 12/09/16 10:35; Admin Dose 25 MG; Start 12/05/16 at 21:00 Hydralazine HCl 10 mg 10 mg Q6H PRN IV ELEVATED BLOOD PRESSURE Last administered on 12/06/16 16:13; Admin Dose 10 MG; Start 12/06/16 at 16:00 Vancomycin HCl (Vancocin) 250 ml @ 125 mls/hr Q24H IVPB Last administered on 04:00; Admin Dose 125 MLS/HR; Start 12/07/16 at 05:00 Miscellaneous Information VANCOMYCIN TROUG LEVEL... ONCE ONCE XX ; Start at 03:00; Stop 12/10/16 at 03:01 Ceftazidime/ Dextrose (Fortaz 2gm/50 ml (Pmx)) 50 ml @ 100 mls/hr Q8 IVPB Last administered on 12/09/16 15:29; Admin Dose 100 MLS/HR; Start 12/09/16 at 14:00 OSEI BLACKWOOD NP Dec 09, 2016 17:41
[2016-12-09] MEDS: metroNIDAZOLE 250 MG TAB GTB SCH (21:26)
[2016-12-10] VITALS (25 sets, daily range): BP systolic 134–161; BP diastolic 63–72; PULSE 100–141; RESP 18–27
[2016-12-10] MEDS: morphine 2 MG INJ IV PRN ×2 (02:35→10:55)
[2016-12-10 03:36] LABS: ADD SCAN DIFF NO
[2016-12-10 03:42] LABS: ABNORMAL IP MESSAGE 1; BASOPHIL # 0.1 10^3/ul (0.0-0.1); BASOPHILS % 0.2 % (0.0-2.0); EOSINOPHILS % 0.1 % (0.0-7.0); HEMATOCRIT 31.9 % (42.0-52.0); HEMOGLOBIN 9.6 g/dl (14.0-18.0); LYMPHOCYTES # 0.9 10^3/ul (0.8-2.9); LYMPHOCYTES % 2.4 % (15.0-51.0); MEAN CORPUSCULAR HEMOGLOBIN 27.9 pg (29.0-33.0); MEAN CORPUSCULAR HGB CONC 30.1 g/dl (32.0-37.0); MEAN CORPUSCULAR VOLUME 92.7 fl (82.0-101.0); MEAN PLATELET VOLUME 10.5 fl (7.4-10.4); MONOCYTE # 1.4 10^3/ul (0.3-0.9); NEUTROPHILS % 92.6 % (39.0-77.0); PLATELET COUNT 317 10^3/UL (140-415); RED BLOOD COUNT 3.44 10^6/ul (4.70-6.10); RED CELL DISTRIBUTION WIDTH 15.5 % (11.5-14.5); WHITE BLOOD COUNT 35.6 10^3/ul (4.8-10.8)
[2016-12-10 04:01] LABS: POTASSIUM 3.8 mmol/L (3.5-5.1)
[2016-12-10 04:03] LABS: CREATININE 0.53 mg/dl (0.61-1.24)
[2016-12-10 04:04] LABS: CALCIUM 9.5 mg/dl (8.4-10.2)
[2016-12-10] MEDS: metroNIDAZOLE 250 MG TAB GTB SCH ×3 (05:03→21:50)
[2016-12-10] MEDS: VANCOMYCIN 1 GM in NS 250 ML IVPB SCH (05:03)
[2016-12-10] MEDS: hydrALAzine 20 MG INJ IV PRN (05:04)
[2016-12-10] MEDS: METOPROLOL 5 MG INJ IV PRN (06:12)
[2016-12-10] MEDS: CEFTAZIDIME 2GM/50 ML (PMX) 50 ML IVPB SCH ×3 (07:47→21:51)
[2016-12-10] MEDS: IPRATROPIUM (HFA) 12.9 GM INHALER INH SCH ×3 (08:28→23:48)
[2016-12-10] MEDS: LEVALBUTEROL (HFA) 15 GM INHALER INH SCH ×3 (08:28→23:48)
[2016-12-10] MEDS: FAMOTIDINE 20 MG TAB GTB SCH (10:07)
[2016-12-10] MEDS: METOPROLOL 25 MG TAB GTB SCH ×2 (10:07→21:50)
[2016-12-10] MEDS: LOSARTAN 25 MG TAB PO SCH ×2 (10:07→21:50)
[2016-12-10] MEDS: COLLAGENASE 30 GM TUBE TOP SCH (10:11)
[2016-12-10] MEDS: MUPIROCIN 2% 22 GM OINT TOP SCH ×2 (10:12→22:03)
[2016-12-10 12:17] LABS: AADO2 Arterial 227.9 mmHg (7.0-24.0); Allen Test ACCEPTAB; Arterial Base Excess 5.3 mmol/L (-3.0-3); Arterial COHb 0.1 % (0.0-3.0); Arterial Fraction of Oxyhgb 93.5 % (93.0-99.0); Arterial HCO3 31.5 mmol/L (22.0-26.0); Arterial MetHb 0.4 % (0.0-1.5); Arterial Total Hemglobin 10.7 g/dl (12.0-18.0); MODE VENT - AC
--- NOTE | 2016-12-10 12:45 | PN ---
Date/Time of Note Date/Time of Note DATE: 12/10/16 TIME: 12:35 Assessment/Plan VTE Prophylaxis VTE Prophylaxis Intervention: SCD's Lines/Catheters IV Catheter Type (from Nrsg): PICC Line Central line still needed: Yes (for IV abx ) Urinary Cath still in place: Yes Reason Cath still needed: other (indicate) (to monitor UOP ) Assessment/Plan Assessment/Plan 81yo man with: 1. Sepsis, Bilateral Pneumonia, HCAP vs VAP, CT chest with severe bilateral PNA and CT neck with OA. Polymicrobial and MDR organisms Persistent Leukocytosis with WBC up to 35K today, abs changed and expanded yesterday with ID Lactate wnl and ABG OK Repeat Blood cx from PICC and periph, UA/Ucx NGTD x 3 days. C diff pending but no diarrhea and started on Flagyl empirically . NS bolus 250 cc x1 then 75 cc/hr Follow up further ID recs today. 2. Chronic vent-dependent respiratory failure, stable on Vent, oxygenating well. Per family has been able to have some puree at subacute facilityn while on the vent? Continue Vancomycin and now on Ceftaz, follow up further ID recs Appreciate Pulmonary recommendations, ABG Ok on vent with FiO2 50% 3. Hypokalemia/Hypomagnesemia: Repleting Mag and K prn 4. Severe Anemia, possible GI bleeding, Unclear source for now. Hb 9.7. No evidence for active bleeding for now. Resumed Iron supplement. 5. Elevated troponins in setting of a fib with RVR and sepsis, CAD HR controlled with Bblocker, up to 50 mg po bid. Appreciate Cardiology recommendations. No anticoag due to Anemia 6. Neck pain but actually no rigidity as patient with good ROM but c spine pain : CT neck with severe OA, no other acute findings. 7. MRSA nares: Bactroban, on Vancomycin already 8. Sacral Decub, seems to be healing well per RN and wound care but cx polymicrobial with MDRO. Continue current abx, further addition or changes per ID. 9. Hypertension: Continue Metoprolol at 50 mg po bid and Losartan as long as BP tolerating. Prophylaxis: Continue SCDs and Famotidine Disposition: On contact isolation and Telemetry. Continue current care. Follow up ID and pulmonary recs today. Poor clinical status today and prognosis poor to fair. Patient is DNR Subjective 24 Hr Interval Summary Free Text/Dictation Patient lethargic with concern regarding apparent respiratory distress. On Vent and ABG OK but patient seems to be clinically deteriorating WBC up to 35K, on rounds of new abx, lactate wnl DNR Exam/Review of Systems Vital Signs Vitals Vital Signs Date Time Temp Pulse Resp B/P Pulse Ox O2 Delivery O2 Flow Rate FiO2 12/10/16 11:28 127 18 94 50 12/10/16 11:09 97.3 134/63 Intake and Output 12/09/16 12/09/16 12/10/16 14:59 22:59 06:59 Intake Total 890 ml 1963 ml Output Total 800 ml 800 ml Balance 90 ml 1163 ml Exam Constitutional: frail, non-verbal, other (lethargic today ) Respiratory: diminished breath sounds (b/l ), other (on vent ) Cardiovascular: other (Sinus tachy ) Gastrointestinal: non-tender, other (G tube in place ), soft Musculoskeletal: other (poor muscle mass) Extremities: normal pulses, other (no edema, clubbing or cyanosis) Neurological: GUARD RANGE II-XII intact, lethargic Skin: other (improved facial rash ) Results Result Diagram: 12/10/16 0300 12/10/16 0300 Results 24 hrs Laboratory Tests Test 12/10/16 03:00 12/10/16 10:42 12/10/16 11:17 White Blood Count 35.6 #H Red Blood Count 3.44 L Hemoglobin 9.6 L Hematocrit 31.9 L Mean Corpuscular Volume 92.7 Mean Corpuscular Hemoglobin 27.9 L Mean Corpuscular Hemoglobin Concent 30.1 L Red Cell Distribution Width 15.5 H Platelet Count 317 Mean Platelet Volume 10.5 H Neutrophils % 92.6 H Lymphocytes % 2.4 L Monocytes % 4.0 Eosinophils % 0.1 Basophils % 0.2 Nucleated Red Blood Cells % 0.0 Neutrophils # 33.0 H Lymphocytes # 0.9 Monocytes # 1.4 H Eosinophils # 0.0 Basophils # 0.1 Nucleated Red Blood Cells # 0.0 Sodium Level 141 Potassium Level 3.8 Chloride Level 101 Carbon Dioxide Level 32 H Anion Gap 12 Blood Urea Nitrogen 30 H Creatinine 0.53 L Glucose Level 138 Calcium Level 9.5 Phosphorus Level 3.0 Magnesium Level 2.0 Vancomycin Level Trough 15.0 Blood Gas Specimen Source Blood arterial Arterial Blood Date Drawn 12/10/2016 12:01:21 PM Arterial Blood pH (Temp corrected) 7.384 Arterial Blood pCO2 (Temp correct) 53.9 H Arterial Blood pO2 (Temp corrected) 68.0 L Arterial Blood HCO3 31.5 H Arterial Blood Base Excess 5.3 H Arterial Blood Oxygen Saturation 94.0 L Russell Test ACCEPTAB Arterial Blood Gas Puncture Site Right Radial Arterial Blood Carboxyhemoglobin 0.1 Arterial Blood Methemoglobin 0.4 Blood Gas A-a O2 Differential 227.9 H Oxyhemoglobin Percent 93.5 Total Hemoglobin 10.7 L Blood Gas Temperature 37.0 Blood Gas Respiration Rate 18.0 Blood Gas Actual Respiration Rate 18 Blood Gas Modality VENT - AC FiO2 50.0 Blood Gas Tidal Volume 550.0 Blood Gas Low PEEP Setting 5.0 Blood Gas Notified Whom JLD Blood Gas Notified Time 12/10/2016 12:17:08 PM Lactic Acid Level 1.0 Medications Medications Current Medications Acetaminophen (Tylenol Tab) 650 mg Q6H PRN PEG PAIN LEVEL 1-3 OR FEVER Last administered on 12/09/16 15:28; Admin Dose 650 MG; Start 11/30/16 at 05:00 Morphine Sulfate (morphine) 2 mg Q4H PRN IV PAIN LEVEL 7-10 Last administered on 12/10/16 10:55; Admin Dose 2 MG; Start 11/30/16 at 05:00 Miscellaneous Information 1 ea NOTE XX ; Start 11/30/16 at 05:00 Glucose (Glutose) 15 gm Q15M PRN PO DECREASED GLUCOSE; Start 11/30/16 at 05:00 Glucose (Glutose) 22.5 gm Q15M PRN PO DECREASED GLUCOSE; Start 11/30/16 at 05: 00 Dextrose (D50w Syringe) 25 ml Q15M PRN IV DECREASED GLUCOSE; Start 11/30/16 at 05:00 Dextrose (D50w Syringe) 50 ml Q15M PRN IV DECREASED GLUCOSE; Start 11/30/16 at 05:00 Glucagon (Glucagen) 1 mg Q15M PRN IM DECREASED GLUCOSE; Start 11/30/16 at 05:00 Glucose (Glutose) 15 gm Q15M PRN BUCCAL DECREASED GLUCOSE; Start 11/30/16 at 05 :00 Metoprolol Tartrate (Lopressor) 2.5 mg Q2H PRN IV heart rate over 110 Last administered on 12/10/16 06:12; Admin Dose 2.5 MG; Start 12/01/16 at 12:00 Collagenase (Santyl) 1 applic DAILY TOP Last administered on 12/10/16 10:11; Admin Dose 1 APPLIC; Start 12/02/16 at 12:00 Collagenase (Santyl) 1 applic DAILY PRN TOP PER WOUND CARE ORDERS; Start at 11:30 Mupirocin (Bactroban) 1 applic BID TOP Last administered on 12/10/16 10:12; Admin Dose 1 APPLIC; Start 12/02/16 at 21:00; Stop 12/16/16 at 20:59 Metoprolol Tartrate (Lopressor) 50 mg BID GTB Last administered on 12/10/16 10 :07; Admin Dose 50 MG; Start 12/04/16 at 21:00 Famotidine (Pepcid) 20 mg DAILY GTB Last administered on 12/10/16 10:07; Admin Dose 20 MG; Start 12/05/16 at 09:00 Losartan Potassium (Cozaar) 25 mg BID PO Last administered on 12/10/16 10:07; Admin Dose 25 MG; Start 12/05/16 at 21:00 Hydralazine HCl 10 mg 10 mg Q6H PRN IV ELEVATED BLOOD PRESSURE Last administered on 12/10/16 05:04; Admin Dose 10 MG; Start 12/06/16 at 16:00 Vancomycin HCl 250 ml @ 125 mls/hr Q24H IVPB Last administered on 12/10/16 05 :03; Admin Dose 125 MLS/HR; Start 12/07/16 at 05:00 Ceftazidime/ Dextrose (Fortaz 2gm/50 ml (Pmx)) 50 ml @ 100 mls/hr Q8 IVPB Last administered on 12/10/16 07:47; Admin Dose 100 MLS/HR; Start 12/09/16 at 14:00 Metronidazole (Flagyl) 250 mg Q8 GTB Last administered on 12/10/16 05:03; Admin Dose 250 MG; Start 12/09/16 at 22:00 CHARLETTE RUTHERFORD Dec 10, 2016 12:45
--- NOTE | 2016-12-10 12:48 | RADRPT ---
PROCEDURE: XR Chest. CLINICAL INDICATION: resp distress TECHNIQUE: Single frontal view of the chest was obtained. COMPARISON: Chest x-ray from 12/06/[address] chest from 12/03/2016 FINDINGS: A tracheostomy is again noted. A left-sided PICC line is again noted, unchanged in position. There is mildly increased right pleural effusion which may at least in part be loculated. There are increased patchy and confluent opacities bilaterally, particularly in the right upper lung zone stent with worsening pneumonia. There is a stable small left pleural effusion. Heart size is unchanged. There is decreased osseous mineralization. IMPRESSION: Increased patchy and confluent opacities in the right greater than left lungs as well as a mildly in creased right pleural effusion which may at least in part be loculated stent with worsening pneumoni a. Stable small left pleural effusion. Tracheostomy and left-sided PICC line. Decreased osseous mineralization. RPTAT: EE Physician Brijesh Date Time Electronically viewed and signed by Fazal East Physician on 12/10/2016 12:47 /
[2016-12-10] MEDS ORDERED: SOD CHLORIDE 0.9% 250 ML IV ONE (13:00)
[2016-12-10] MEDS: SOD CHLORIDE 0.9% 1,000 ML IV SCH (14:05)
--- NOTE | 2016-12-10 14:39 | CONS ---
Date/Time of Note Date/Time of Note DATE: 12/10/16 TIME: 14:37 Consult Date/Type/Reason Admit Date/Time Nov 30, 2016 at 04:54 Initial Consult Date 12/01/16 Type of Consultation: ID Ordering Provider: CHARLETTE RUTHERFORD Objective Vital Signs Date Time Temp Pulse Resp B/P Pulse Ox O2 Delivery O2 Flow Rate FiO2 12/10/16 13:50 100 18 94 50 12/10/16 11:09 97.3 134/63 Intake and Output 12/09/16 12/09/16 12/10/16 15:00 23:00 07:00 Intake Total 890 ml 1963 ml Output Total 800 ml 800 ml Balance 90 ml 1163 ml Exam PHYSICAL EXAMINATION GENERAL: Elderly gentleman, on mechanical ventilation, opens eyes and appears somewhat agitated. VITAL SIGNS: see below. HEENT: Pupils equal, round, and reactive to light. Tracheostomy site clean and intact. CARDIAC: S1, S2, CHEST: Diminished air entry bilaterally. ABDOMEN: Mildly distended. Diminished bowel sounds no guarding or rebound EXTREMITIES: No cyanosis, clubbing or edema. NEUROLOGIC: Generalized weakness Results/Medications Result Diagram: 12/10/16 0300 12/10/16 0300 Results 24 hrs Laboratory Tests Test 12/10/16 03:00 12/10/16 10:42 12/10/16 11:17 White Blood Count 35.6 #H Red Blood Count 3.44 L Hemoglobin 9.6 L Hematocrit 31.9 L Mean Corpuscular Volume 92.7 Mean Corpuscular Hemoglobin 27.9 L Mean Corpuscular Hemoglobin Concent 30.1 L Red Cell Distribution Width 15.5 H Platelet Count 317 Mean Platelet Volume 10.5 H Neutrophils % 92.6 H Lymphocytes % 2.4 L Monocytes % 4.0 Eosinophils % 0.1 Basophils % 0.2 Nucleated Red Blood Cells % 0.0 Neutrophils # 33.0 H Lymphocytes # 0.9 Monocytes # 1.4 H Eosinophils # 0.0 Basophils # 0.1 Nucleated Red Blood Cells # 0.0 Sodium Level 141 Potassium Level 3.8 Chloride Level 101 Carbon Dioxide Level 32 H Anion Gap 12 Blood Urea Nitrogen 30 H Creatinine 0.53 L Glucose Level 138 Calcium Level 9.5 Phosphorus Level 3.0 Magnesium Level 2.0 Vancomycin Level Trough 15.0 Blood Gas Specimen Source Blood arterial Arterial Blood Date Drawn 12/10/2016 12:01:21 PM Arterial Blood pH (Temp corrected) 7.384 Arterial Blood pCO2 (Temp correct) 53.9 H Arterial Blood pO2 (Temp corrected) 68.0 L Arterial Blood HCO3 31.5 H Arterial Blood Base Excess 5.3 H Arterial Blood Oxygen Saturation 94.0 L Russell Test ACCEPTAB Arterial Blood Gas Puncture Site Right Radial Arterial Blood Carboxyhemoglobin 0.1 Arterial Blood Methemoglobin 0.4 Blood Gas A-a O2 Differential 227.9 H Oxyhemoglobin Percent 93.5 Total Hemoglobin 10.7 L Blood Gas Temperature 37.0 Blood Gas Respiration Rate 18.0 Blood Gas Actual Respiration Rate 18 Blood Gas Modality VENT - AC FiO2 50.0 Blood Gas Tidal Volume 550.0 Blood Gas Low PEEP Setting 5.0 Blood Gas Notified Whom JLD Blood Gas Notified Time 12/10/2016 12:17:08 PM Lactic Acid Level 1.0 Medications Current Medications Acetaminophen (Tylenol Tab) 650 mg Q6H PRN PEG PAIN LEVEL 1-3 OR FEVER Last administered on 12/09/16 15:28; Admin Dose 650 MG; Start 11/30/16 at 05:00 Morphine Sulfate (morphine) 2 mg Q4H PRN IV PAIN LEVEL 7-10 Last administered on 12/10/16 10:55; Admin Dose 2 MG; Start 11/30/16 at 05:00 Miscellaneous Information 1 ea NOTE XX ; Start 11/30/16 at 05:00 Glucose (Glutose) 15 gm Q15M PRN PO DECREASED GLUCOSE; Start 11/30/16 at 05:00 Glucose (Glutose) 22.5 gm Q15M PRN PO DECREASED GLUCOSE; Start 11/30/16 at 05: 00 Dextrose (D50w Syringe) 25 ml Q15M PRN IV DECREASED GLUCOSE; Start 11/30/16 at 05:00 Dextrose (D50w Syringe) 50 ml Q15M PRN IV DECREASED GLUCOSE; Start 11/30/16 at 05:00 Glucagon (Glucagen) 1 mg Q15M PRN IM DECREASED GLUCOSE; Start 11/30/16 at 05:00 Glucose (Glutose) 15 gm Q15M PRN BUCCAL DECREASED GLUCOSE; Start 11/30/16 at 05 :00 Metoprolol Tartrate (Lopressor) 2.5 mg Q2H PRN IV heart rate over 110 Last administered on 12/10/16 06:12; Admin Dose 2.5 MG; Start 12/01/16 at 12:00 Collagenase (Santyl) 1 applic DAILY TOP Last administered on 12/10/16 10:11; Admin Dose 1 APPLIC; Start 12/02/16 at 12:00 Collagenase (Santyl) 1 applic DAILY PRN TOP PER WOUND CARE ORDERS; Start at 11:30 Mupirocin (Bactroban) 1 applic BID TOP Last administered on 12/10/16 10:12; Admin Dose 1 APPLIC; Start 12/02/16 at 21:00; Stop 12/16/16 at 20:59 Metoprolol Tartrate (Lopressor) 50 mg BID GTB Last administered on 12/10/16 10 :07; Admin Dose 50 MG; Start 12/04/16 at 21:00 Famotidine (Pepcid) 20 mg DAILY GTB Last administered on 12/10/16 10:07; Admin Dose 20 MG; Start 12/05/16 at 09:00 Losartan Potassium (Cozaar) 25 mg BID PO Last administered on 12/10/16 10:07; Admin Dose 25 MG; Start 12/05/16 at 21:00 Hydralazine HCl 10 mg 10 mg Q6H PRN IV ELEVATED BLOOD PRESSURE Last administered on 12/10/16 05:04; Admin Dose 10 MG; Start 12/06/16 at 16:00 Vancomycin HCl 250 ml @ 125 mls/hr Q24H IVPB Last administered on 12/10/16 05 :03; Admin Dose 125 MLS/HR; Start 12/07/16 at 05:00 Ceftazidime/ Dextrose (Fortaz 2gm/50 ml (Pmx)) 50 ml @ 100 mls/hr Q8 IVPB Last administered on 12/10/16 07:47; Admin Dose 100 MLS/HR; Start 12/09/16 at 14:00 Metronidazole 250 mg 250 mg Q8 GTB Last administered on 12/10/16 05:03; Admin Dose 250 MG; Start 12/09/16 at 22:00 Sodium Chloride (NS) 1,000 ml @ 75 mls/hr [id number] IV Last administered on 12/10 14:05; Admin Dose 75 MLS/HR; Start 12/10/16 at 13:00 Assessment/Plan Chief Complaint/Hosp Course Assessment 1. Hypoxemic respiratory failure on mechanical ventilation via tracheostomy, worsening respiratory distress today intermittent agonal respiration 2. Persistent leukocytosis likely polymicrobial sepsis 3. Mild dehydration 4. Anemia of chronic disease 5. History of CVA 6. Dysphagia with G-tube Plan 1. Continue mechanical ventilation repeat chest x-ray shows persistent bilateral infiltrates 2. Continue broad-spectrum antibiotics questionable underlying malignancy versus abscess 3. Tube feeding as tolerated 4. Correction of electrolyte abnormalities 5. DVT GI prophylaxis Disposition Continue telemetry care Overall prognosis very poor consider palliative care consult Problems: JOSEF HERRING MD, [facility] Dec 10, 2016 14:39
--- NOTE | 2016-12-10 18:38 | CONS ---
Date/Time of Note Date/Time of Note DATE: 12/10/16 TIME: 18:14 Assessment/Plan Assessment/Plan Chief Complaint/Hosp Course ID PROGRESS NOTE TOTAL ABX DAY # 11 => Vanco IV + FORTAZ #2 + Flagyl GT #2 Primaxin -> DC 12/09 24H INTERVAL SUMMARY * Per notes increased anxiety/agitation today * CXR: Increased patchy and confluent opacities in the right greater than left lungs as well as a mildly increased right pleural effusion which may at least in part be loculated stent with worsening pneumonia. * WBC rising on ABX == suspect MDRO + C.Diff * Low grade Tmax 99.2. * Trach Cx (+)GNR->ESPIRATORY CULTURE Final Organism 1 PSEUDOMONAS AERUGINOSA QUANTITY 4+ P.AERUG M.I.C. RX --------- --- AMIKACIN 32 I AZTREONAM R CEFEPIME 16 I CEFTAZIDIME 8 S CIPROFLOXACIN >=4 R GENTAMICIN >=16 R IMIPENEM >=16 R LEVOFLOXACIN >=8 R TOBRAMYCIN >=16 R PIPERACILLIN/TAZOBACTAM R * Decub (+)GNR -> Pending * 81 M w/Trach->Vented, lethargic -- rounding late pm * Chart reviewed -> BCx(-), Urine Cx(-); (+)MRSA Nares DIAGNOSTIC IMAGING * 12/07/15 CXR: IMPRESSION:1. Interval increase in moderate right pleural effusion with associated atelectasis. 2. Atherosclerosis with stable mild to moderate pulmonary vascular congestion. * CT 12/03/16 IMPRESSION: * 1. Severe dense confluent multifocal consolidation scattered throughout the lungs consistent with widespread diffuse pneumonia. * 2. Extensive mediastinal and hilar adenopathy with adenopathy extending to the supraclavicular laura stations bilaterally. * 3. Tiny layering effusions within the posterior lung bases bilaterally. * 4. Tracheostomy tube in place, in good location within the trachea above the nehemiah. * 5. Left-sided PICC line in good position with the tip in the superior vena cava. 6. 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 PHYSICAL EXAMINATION: GENERAL: Frail 81 yo elder M w/chronic debility on the Vent, VSS, NAD HEENT: Unremarkable except no teeth NECK: Supple, trach->clean stoma and secure to Vent CHEST: Equal chest rise bilaterally, without dyspnea on observation HEART: Pulse RRR ABDOMEN: Soft, benign., peg EXTREMITIES: Warm, dry, muscle atrophy, missing finger digits SKIN: Warm, dry ID ASSESSMENT: 81 yo M w/PMHx CVA w/right hemiplegia, dementia, dysphagia-PEG, VDRF, admitted with: 1. Systemic inflammatory response syndrome with low grade temperatures, leukocytosis * WBC rising w/low grade temps 2. Healthcare-associated pneumonia: * CT Thorax: Severe dense confluent multifocal consolidation scattered throughout the lungs consistent with widespread diffuse pneumonia. * Sputum (+)PSAR = MDRO sensitive to Fortaz + GNR #2 = pending 3. Right pleural effusion. 4. 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 GERD ?Gastroparesis? 7. BPH w/suspected urinary retention - indwelling FC 8. CKD 9. 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 QUERY: ?Early UTI w/trace leuk esterase, pyuria on UA 12/06/16 11. LUEXT PICC = present on admission INVASIVES: * Trach, Peg, FC, PICC->11/30/17 ABX ALLERGIES: KNDA CURRENT ABX: TOTAL ABX DAY #11 => Vanco IV + FORTAZ #2 + Flagyl GT #2 + Amikacin #1 Primaxin -> DC 12/09 s/p Zosyn in ED ID RECOMMENDATIONS: 1. Vanco IV + Fortaz (PSAR) + Flagyl (anaerobic empiric) coverage * Patient now OFF ESBL coverage ---> Start Amikacin to cover ESBL 3. Sacral decub looks clean -- (+)Polymicrobial MDRO on wound cx 4. Patient with poor quality of life, poor long-term prognosis and is hospice appropriate. * -> He is now a host for breeding multiple anti-biotic resistant bacterial pathogens. Doubt ABX therapy will reverse prognosis, rather will lead to further development of MDRO while prolonging the end-of-life stage. Furthermore , he is now at risk for renal failure with addition of aminoglycoside to vancomycin for ESLB + MRSA coverage. Promote ethic futility vs autonomy. . . . . Problems: Consultation Date/Type/Reason Admit Date/Time Nov 30, 2016 at 04:54 Initial Consult Date 12/01/16 Type of Consultation: ID Referring Provider: CHARLETTE RUTHERFORD Exam/Review of Systems Vital Signs Vitals Vital Signs Date Time Temp Pulse Resp B/P Pulse Ox O2 Delivery O2 Flow Rate FiO2 12/10/16 17:34 112 18 96 50 12/10/16 15:26 97.2 135/63 Intake and Output 12/09/16 12/09/16 12/10/16 15:00 23:00 07:00 Intake Total 890 ml 1963 ml Output Total 800 ml 800 ml Balance 90 ml 1163 ml Results Result Diagram: 12/10/16 0300 12/10/16 0300 Results 24 hrs Laboratory Tests Test 12/10/16 03:00 12/10/16 10:42 12/10/16 11:17 White Blood Count 35.6 #H Red Blood Count 3.44 L Hemoglobin 9.6 L Hematocrit 31.9 L Mean Corpuscular Volume 92.7 Mean Corpuscular Hemoglobin 27.9 L Mean Corpuscular Hemoglobin Concent 30.1 L Red Cell Distribution Width 15.5 H Platelet Count 317 Mean Platelet Volume 10.5 H Neutrophils % 92.6 H Lymphocytes % 2.4 L Monocytes % 4.0 Eosinophils % 0.1 Basophils % 0.2 Nucleated Red Blood Cells % 0.0 Neutrophils # 33.0 H Lymphocytes # 0.9 Monocytes # 1.4 H Eosinophils # 0.0 Basophils # 0.1 Nucleated Red Blood Cells # 0.0 Sodium Level 141 Potassium Level 3.8 Chloride Level 101 Carbon Dioxide Level 32 H Anion Gap 12 Blood Urea Nitrogen 30 H Creatinine 0.53 L Glucose Level 138 Calcium Level 9.5 Phosphorus Level 3.0 Magnesium Level 2.0 Vancomycin Level Trough 15.0 Blood Gas Specimen Source Blood arterial Arterial Blood Date Drawn 12/10/2016 12:01:21 PM Arterial Blood pH (Temp corrected) 7.384 Arterial Blood pCO2 (Temp correct) 53.9 H Arterial Blood pO2 (Temp corrected) 68.0 L Arterial Blood HCO3 31.5 H Arterial Blood Base Excess 5.3 H Arterial Blood Oxygen Saturation 94.0 L Russell Test ACCEPTAB Arterial Blood Gas Puncture Site Right Radial Arterial Blood Carboxyhemoglobin 0.1 Arterial Blood Methemoglobin 0.4 Blood Gas A-a O2 Differential 227.9 H Oxyhemoglobin Percent 93.5 Total Hemoglobin 10.7 L Blood Gas Temperature 37.0 Blood Gas Respiration Rate 18.0 Blood Gas Actual Respiration Rate 18 Blood Gas Modality VENT - AC FiO2 50.0 Blood Gas Tidal Volume 550.0 Blood Gas Low PEEP Setting 5.0 Blood Gas Notified Whom JLD Blood Gas Notified Time 12/10/2016 12:17:08 PM Lactic Acid Level 1.0 Medications Medications Current Medications Acetaminophen (Tylenol Tab) 650 mg Q6H PRN PEG PAIN LEVEL 1-3 OR FEVER Last administered on 12/09/16 15:28; Admin Dose 650 MG; Start 11/30/16 at 05:00 Morphine Sulfate (morphine) 2 mg Q4H PRN IV PAIN LEVEL 7-10 Last administered on 12/10/16 10:55; Admin Dose 2 MG; Start 11/30/16 at 05:00 Miscellaneous Information 1 ea NOTE XX ; Start 11/30/16 at 05:00 Glucose (Glutose) 15 gm Q15M PRN PO DECREASED GLUCOSE; Start 11/30/16 at 05:00 Glucose (Glutose) 22.5 gm Q15M PRN PO DECREASED GLUCOSE; Start 11/30/16 at 05: 00 Dextrose (D50w Syringe) 25 ml Q15M PRN IV DECREASED GLUCOSE; Start 11/30/16 at 05:00 Dextrose (D50w Syringe) 50 ml Q15M PRN IV DECREASED GLUCOSE; Start 11/30/16 at 05:00 Glucagon (Glucagen) 1 mg Q15M PRN IM DECREASED GLUCOSE; Start 11/30/16 at 05:00 Glucose (Glutose) 15 gm Q15M PRN BUCCAL DECREASED GLUCOSE; Start 11/30/16 at 05 :00 Metoprolol Tartrate (Lopressor) 2.5 mg Q2H PRN IV heart rate over 110 Last administered on 12/10/16 06:12; Admin Dose 2.5 MG; Start 12/01/16 at 12:00 Collagenase (Santyl) 1 applic DAILY TOP Last administered on 12/10/16 10:11; Admin Dose 1 APPLIC; Start 12/02/16 at 12:00 Collagenase (Santyl) 1 applic DAILY PRN TOP PER WOUND CARE ORDERS; Start at 11:30 Mupirocin (Bactroban) 1 applic BID TOP Last administered on 12/10/16 10:12; Admin Dose 1 APPLIC; Start 12/02/16 at 21:00; Stop 12/16/16 at 20:59 Metoprolol Tartrate (Lopressor) 50 mg BID GTB Last administered on 12/10/16 10 :07; Admin Dose 50 MG; Start 12/04/16 at 21:00 Famotidine (Pepcid) 20 mg DAILY GTB Last administered on 12/10/16 10:07; Admin Dose 20 MG; Start 12/05/16 at 09:00 Losartan Potassium (Cozaar) 25 mg BID PO Last administered on 12/10/16 10:07; Admin Dose 25 MG; Start 12/05/16 at 21:00 Hydralazine HCl 10 mg 10 mg Q6H PRN IV ELEVATED BLOOD PRESSURE Last administered on 12/10/16 05:04; Admin Dose 10 MG; Start 12/06/16 at 16:00 Vancomycin HCl 250 ml @ 125 mls/hr Q24H IVPB Last administered on 12/10/16 05 :03; Admin Dose 125 MLS/HR; Start 12/07/16 at 05:00 Ceftazidime/ Dextrose (Fortaz 2gm/50 ml (Pmx)) 50 ml @ 100 mls/hr Q8 IVPB Last administered on 12/10/16 15:13; Admin Dose 100 MLS/HR; Start 12/09/16 at 14:00 Metronidazole 250 mg 250 mg Q8 GTB Last administered on 12/10/16 14:00; Admin Dose 250 MG; Start 12/09/16 at 22:00 Sodium Chloride (NS) 1,000 ml @ 75 mls/hr [id number] IV Last administered on 12/10 14:05; Admin Dose 75 MLS/HR; Start 12/10/16 at 13:00 OSEI BLACKWOOD NP Dec 10, 2016 18:24
[2016-12-10] MEDS ORDERED: AMIKACIN IV PER PHARMACY XX SCH (19:00)
[2016-12-10] MEDS ORDERED: SOD CHLORIDE 0.9% IVPB SCH ×2 (20:30→21:00)
[2016-12-10] MEDS ORDERED: AMIKACIN IVPB SCH ×2 (20:30→21:00)
[2016-12-11] VITALS (24 sets, daily range): BP systolic 120–137; BP diastolic 56–74; PULSE 85–120; RESP 18–24
[2016-12-11] MEDS: morphine 2 MG INJ IV PRN ×3 (00:07→22:23)
[2016-12-11] MEDS: SOD CHLORIDE 0.9% 1,000 ML IV SCH ×2 (02:20→12:48)
[2016-12-11] MEDS: VANCOMYCIN 1 GM in NS 250 ML IVPB SCH (04:23)
[2016-12-11] MEDS: CEFTAZIDIME 2GM/50 ML (PMX) 50 ML IVPB SCH ×3 (05:25→22:13)
[2016-12-11] MEDS: metroNIDAZOLE 250 MG TAB GTB SCH ×3 (05:25→22:12)
[2016-12-11] MEDS: FAMOTIDINE 20 MG TAB GTB SCH (08:11)
[2016-12-11] MEDS: ACETAMINOPHEN 325 MG TAB PEG PRN ×2 (08:11→18:31)
[2016-12-11] MEDS: METOPROLOL 25 MG TAB GTB SCH ×2 (08:12→22:12)
[2016-12-11] MEDS: LOSARTAN 25 MG TAB PO SCH ×2 (08:12→22:13)
[2016-12-11] MEDS: MUPIROCIN 2% 22 GM OINT TOP SCH ×2 (08:13→22:13)
[2016-12-11] MEDS: COLLAGENASE 30 GM TUBE TOP SCH (08:15)
[2016-12-11] MEDS: IPRATROPIUM (HFA) 12.9 GM INHALER INH SCH ×3 (09:08→23:37)
[2016-12-11] MEDS: LEVALBUTEROL (HFA) 15 GM INHALER INH SCH ×3 (09:08→23:37)
[2016-12-11 10:06] LABS: ADD SCAN DIFF NO
[2016-12-11 10:19] LABS: ABNORMAL IP MESSAGE 1; HEMATOCRIT 26.9 % (42.0-52.0); HEMOGLOBIN 8.2 g/dl (14.0-18.0); MEAN CORPUSCULAR HGB CONC 30.5 g/dl (32.0-37.0); MEAN CORPUSCULAR VOLUME 91.8 fl (82.0-101.0); MEAN PLATELET VOLUME 10.5 fl (7.4-10.4); PLATELET COUNT 268 10^3/UL (140-415); RED BLOOD COUNT 2.93 10^6/ul (4.70-6.10); RED CELL DISTRIBUTION WIDTH 15.5 % (11.5-14.5); WHITE BLOOD COUNT 24.3 10^3/ul (4.8-10.8)
[2016-12-11 10:24] LABS: CALCIUM 9.6 mg/dl (8.4-10.2); CREATININE 0.48 mg/dl (0.61-1.24); MAGNESIUM 1.9 mg/dl (1.7-2.5); POTASSIUM 3.3 mmol/L (3.5-5.1)
[2016-12-11] MEDS ORDERED: POTASSIUM CHLORIDE 20 MEQ POWDER FOR ORAL SOLN GTB ONE (12:30)
--- NOTE | 2016-12-11 13:17 | PN ---
Date/Time of Note Date/Time of Note DATE: 12/11/16 TIME: 12:58 Assessment/Plan VTE Prophylaxis VTE Prophylaxis Intervention: SCD's Lines/Catheters IV Catheter Type (from Nrsg): PICC Line Central line still needed: Yes (for iV access) Urinary Cath still in place: Yes Reason Cath still needed: other (indicate) Assessment/Plan Assessment/Plan 81 yo man with: 1. Sepsis, Bilateral Pneumonia, HCAP vs VAP, CT chest with severe bilateral PNA and CT neck with OA. Polymicrobial and MDR organisms Amikacin added yesterday and Leukocytosis better today with WBC at 24K today. Repeat Blood cx from PICC and periph, UA/Ucx NGTD x 3 days. C diff pending but no diarrhea and started on Flagyl empirically . On IVF currently at gentle rate. Follow up further ID recs today. 2. Chronic vent-dependent respiratory failure, stable on Vent, oxygenating well. Per family has been able to have some puree at subacute facilityn while on the vent? Continue Vancomycin, Ceftazidime and now Amikacin. Appreciate Pulmonary recommendations, ABG Ok on vent with FiO2 50% 3. Hypokalemia/Hypomagnesemia: Repleting Mag and K prn 4. Severe Anemia, possible GI bleeding, Unclear source for now. Hb Ok. No evidence for active bleeding for now. Back on Iron supplement. 5. Elevated troponins in setting of a fib with RVR and sepsis, CAD HR controlled with Bblocker, up to 50 mg po bid. Appreciate Cardiology recommendations. No anticoag due to Anemia 6. Neck pain but actually no rigidity as patient with good ROM but c spine pain : CT neck with severe OA, no other acute findings. 7. MRSA nares: Bactroban, on Vancomycin already 8. Sacral Decub, seems to be healing well per RN and wound care but cx polymicrobial with MDRO. Abx adjusted and on wound care protocol. 9. Hypertension: Continue Metoprolol at 50 mg po bid and Losartan as long as BP tolerating. Prophylaxis: Continue SCDs and Famotidine Disposition: On contact isolation and Telemetry. Continue current care. Better clinically today but still prognosis remains poor to fair. Patient is DNR Subjective 24 Hr Interval Summary Free Text/Dictation Patient seems better this AM More awake and WBC down Stable on Vent and hemodynamically stable Amikacin added to his abx regimen Exam/Review of Systems Vital Signs Vitals Vital Signs Date Time Temp Pulse Resp B/P Pulse Ox O2 Delivery O2 Flow Rate FiO2 12/11/16 12:23 85 12/11/16 11:21 98.3 18 122/56 97 12/11/16 09:08 50 Intake and Output 12/10/16 12/10/16 12/11/16 15:00 23:00 07:00 Intake Total 920 ml 920 ml Output Total 550 ml 700 ml Balance 370 ml 220 ml Exam Constitutional: alert, frail, other (more awake today ) Respiratory: diminished breath sounds (bilaterally ), other (on Vent with FiO2 of 50% ) Cardiovascular: nl pulses, regular rate and rhythm Gastrointestinal: non-tender, other (tolerating Tube feedings ), soft Musculoskeletal: other (muscle wasting noted ) Extremities: normal pulses Neurological: MENTAL HEALTH CASE MANAGER II-XII intact, other (much more awake ) Results Result Diagram: 12/11/16 0940 12/11/16 0940 Results 24 hrs Laboratory Tests Test 12/11/16 09:40 12/11/16 11:35 White Blood Count 24.3 #H Red Blood Count 2.93 L Hemoglobin 8.2 L Hematocrit 26.9 L Mean Corpuscular Volume 91.8 Mean Corpuscular Hemoglobin 28.0 L Mean Corpuscular Hemoglobin Concent 30.5 L Red Cell Distribution Width 15.5 H Platelet Count 268 Mean Platelet Volume 10.5 H Sodium Level 138 Potassium Level 3.3 L Chloride Level 105 Carbon Dioxide Level 29 Anion Gap 7 L Blood Urea Nitrogen 30 H Creatinine 0.48 L Glucose Level 126 Calcium Level 9.6 Magnesium Level 1.9 Lab Scanned Report REFERENCE LAB Medications Medications Current Medications Acetaminophen (Tylenol Tab) 650 mg Q6H PRN PEG PAIN LEVEL 1-3 OR FEVER Last administered on 12/11/16 08:11; Admin Dose 650 MG; Start 11/30/16 at 05:00 Morphine Sulfate (morphine) 2 mg Q4H PRN IV PAIN LEVEL 7-10 Last administered on 12/11/16 04:01; Admin Dose 2 MG; Start 11/30/16 at 05:00 Miscellaneous Information 1 ea NOTE XX ; Start 11/30/16 at 05:00 Glucose (Glutose) 15 gm Q15M PRN PO DECREASED GLUCOSE; Start 11/30/16 at 05:00 Glucose (Glutose) 22.5 gm Q15M PRN PO DECREASED GLUCOSE; Start 11/30/16 at 05: 00 Dextrose (D50w Syringe) 25 ml Q15M PRN IV DECREASED GLUCOSE; Start 11/30/16 at 05:00 Dextrose (D50w Syringe) 50 ml Q15M PRN IV DECREASED GLUCOSE; Start 11/30/16 at 05:00 Glucagon (Glucagen) 1 mg Q15M PRN IM DECREASED GLUCOSE; Start 11/30/16 at 05:00 Glucose (Glutose) 15 gm Q15M PRN BUCCAL DECREASED GLUCOSE; Start 11/30/16 at 05 :00 Metoprolol Tartrate (Lopressor) 2.5 mg Q2H PRN IV heart rate over 110 Last administered on 12/10/16 06:12; Admin Dose 2.5 MG; Start 12/01/16 at 12:00 Collagenase (Santyl) 1 applic DAILY TOP Last administered on 12/11/16 08:15; Admin Dose 1 APPLIC; Start 12/02/16 at 12:00 Collagenase (Santyl) 1 applic DAILY PRN TOP PER WOUND CARE ORDERS; Start at 11:30 Mupirocin (Bactroban) 1 applic BID TOP Last administered on 12/11/16 08:13; Admin Dose 1 APPLIC; Start 12/02/16 at 21:00; Stop 12/16/16 at 20:59 Metoprolol Tartrate (Lopressor) 50 mg BID GTB Last administered on 12/11/16 08 :12; Admin Dose 50 MG; Start 12/04/16 at 21:00 Famotidine (Pepcid) 20 mg DAILY GTB Last administered on 12/11/16 08:11; Admin Dose 20 MG; Start 12/05/16 at 09:00 Losartan Potassium (Cozaar) 25 mg BID PO Last administered on 12/11/16 08:12; Admin Dose 25 MG; Start 12/05/16 at 21:00 Hydralazine HCl 10 mg 10 mg Q6H PRN IV ELEVATED BLOOD PRESSURE Last administered on 12/10/16 05:04; Admin Dose 10 MG; Start 12/06/16 at 16:00 Vancomycin HCl 250 ml @ 125 mls/hr Q24H IVPB Last administered on 12/11/16 04 :23; Admin Dose 125 MLS/HR; Start 12/07/16 at 05:00 Ceftazidime/ Dextrose (Fortaz 2gm/50 ml (Pmx)) 50 ml @ 100 mls/hr Q8 IVPB Last administered on 12/11/16 12:47; Admin Dose 100 MLS/HR; Start 12/09/16 at 14:00 Metronidazole 250 mg 250 mg Q8 GTB Last administered on 12/11/16 12:47; Admin Dose 250 MG; Start 12/09/16 at 22:00 Sodium Chloride (NS) 1,000 ml @ 75 mls/hr [id number] IV Last administered on 12/11 12:48; Admin Dose 75 MLS/HR; Start 12/10/16 at 13:00 Amikacin Sulfate AMIKACIN PER PHARMACY NOTE XX ; Start 12/10/16 at 19:00 Amikacin Sulfate/ Sodium Chloride (Amikacin/NS) 150 ml @ 150 mls/hr Q24H IVPB Last administered on 12/10/16 22:03; Admin Dose 150 MLS/HR; Start 12/10/16 at 21:00 CHARLETTE RUTHERFORD Dec 11, 2016 13:09
[2016-12-11 13:51] LABS: LYMPHOCYTES # 0.5 10^3/ul (0.8-2.9); MONOCYTE # 0.2 10^3/ul (0.3-0.9); NEUTROPHIL # 23.6 10^3/ul (1.6-7.5)
--- NOTE | 2016-12-11 14:38 | CONS ---
Date/Time of Note Date/Time of Note DATE: 12/11/16 TIME: 14:36 Assessment/Plan Assessment/Plan Additional Assessment/Plan Chest x-ray was reviewed from yesterday which is again showing extensive consolidative changes involving the right lung. Patient also has persistent leukocytosis. Ventilator settings; AC of 18, tidal volume 550, PEEP of 5, 40% FiO2. Assessment recommendations; 1. Patient admitted for right lower lobe pneumonia with persistent leukocytosis as well as no change in chest x-ray findings. 2. Possibly underlying empyema. 3. Chronic respiratory failure due to quadriplegia. 4. Multiple organisms isolated in sputum. Continue current treatment. Obtain a CT chest without contrast. Consultation Date/Type/Reason Admit Date/Time Nov 30, 2016 at 04:54 Initial Consult Date 12/01/16 Type of Consultation: Pulmonary Referring Provider: CHARLETTE RUTHERFORD 24 HR Interval Summary Free Text/Dictation Patient condition remains stable. Remains awake alert. Has remained hemodynamically stable. General exam; elderly male, on ventilator via tracheostomy currently in no distress, awake and alert. Exam/Review of Systems Vital Signs Vitals Vital Signs Date Time Temp Pulse Resp B/P Pulse Ox O2 Delivery O2 Flow Rate FiO2 12/11/16 12:23 85 12/11/16 11:21 98.3 18 122/56 97 12/11/16 09:08 50 Intake and Output 12/10/16 12/10/16 12/11/16 15:00 23:00 07:00 Intake Total 920 ml 920 ml Output Total 550 ml 700 ml Balance 370 ml 220 ml Exam HEENT exam is; supple neck, no JVD. No lymphadenopathy. Midline trachea. No thyromegaly. Patient is edentulous. Tracheostomy in place with clean insertion site. Chest exam is; left lung is clear to auscultation with crackles involving right lung. S1-S2 audible, no murmurs. Regular rhythm. Abdomen examination; soft, no organomegaly. G-tube in place. Bowel sounds audible. Nontender. Extremity exam is; no peripheral edema. Next DESIZING MACHINE BACK TENDER examination; patient is awake alert responds well by lip movements as well as eye blinking. Has stable quadriplegia. Results Result Diagram: 12/11/1640 12/11/16 0940 Results 24 hrs Laboratory Tests Test 12/11/16 09:40 12/11/16 11:35 White Blood Count 24.3 #H Red Blood Count 2.93 L Hemoglobin 8.2 L Hematocrit 26.9 L Mean Corpuscular Volume 91.8 Mean Corpuscular Hemoglobin 28.0 L Mean Corpuscular Hemoglobin Concent 30.5 L Red Cell Distribution Width 15.5 H Platelet Count 268 Mean Platelet Volume 10.5 H Neutrophils % 97.0 H Lymphocytes % 2.0 L Monocytes % 1.0 Neutrophils # 23.6 H Lymphocytes # 0.5 L Monocytes # 0.2 L Differential Comment MANUAL DIFF Large Platelets OCCASIONAL Sodium Level 138 Potassium Level 3.3 L Chloride Level 105 Carbon Dioxide Level 29 Anion Gap 7 L Blood Urea Nitrogen 30 H Creatinine 0.48 L Glucose Level 126 Calcium Level 9.6 Magnesium Level 1.9 Lab Scanned Report REFERENCE LAB Medications Medications Current Medications Acetaminophen (Tylenol Tab) 650 mg Q6H PRN PEG PAIN LEVEL 1-3 OR FEVER Last administered on 12/11/16 08:11; Admin Dose 650 MG; Start 11/30/16 at 05:00 Morphine Sulfate (morphine) 2 mg Q4H PRN IV PAIN LEVEL 7-10 Last administered on 12/11/16 04:01; Admin Dose 2 MG; Start 11/30/16 at 05:00 Miscellaneous Information 1 ea NOTE XX ; Start 11/30/16 at 05:00 Glucose (Glutose) 15 gm Q15M PRN PO DECREASED GLUCOSE; Start 11/30/16 at 05:00 Glucose (Glutose) 22.5 gm Q15M PRN PO DECREASED GLUCOSE; Start 11/30/16 at 05: 00 Dextrose (D50w Syringe) 25 ml Q15M PRN IV DECREASED GLUCOSE; Start 11/30/16 at 05:00 Dextrose (D50w Syringe) 50 ml Q15M PRN IV DECREASED GLUCOSE; Start 11/30/16 at 05:00 Glucagon (Glucagen) 1 mg Q15M PRN IM DECREASED GLUCOSE; Start 11/30/16 at 05:00 Glucose (Glutose) 15 gm Q15M PRN BUCCAL DECREASED GLUCOSE; Start 11/30/16 at 05 :00 Metoprolol Tartrate (Lopressor) 2.5 mg Q2H PRN IV heart rate over 110 Last administered on 12/10/16 06:12; Admin Dose 2.5 MG; Start 12/01/16 at 12:00 Collagenase (Santyl) 1 applic DAILY TOP Last administered on 12/11/16 08:15; Admin Dose 1 APPLIC; Start 12/02/16 at 12:00 Collagenase (Santyl) 1 applic DAILY PRN TOP PER WOUND CARE ORDERS; Start at 11:30 Mupirocin (Bactroban) 1 applic BID TOP Last administered on 12/11/16 08:13; Admin Dose 1 APPLIC; Start 12/02/16 at 21:00; Stop 12/16/16 at 20:59 Metoprolol Tartrate (Lopressor) 50 mg BID GTB Last administered on 12/11/16 08 :12; Admin Dose 50 MG; Start 12/04/16 at 21:00 Famotidine (Pepcid) 20 mg DAILY GTB Last administered on 12/11/16 08:11; Admin Dose 20 MG; Start 12/05/16 at 09:00 Losartan Potassium (Cozaar) 25 mg BID PO Last administered on 12/11/16 08:12; Admin Dose 25 MG; Start 12/05/16 at 21:00 Hydralazine HCl 10 mg 10 mg Q6H PRN IV ELEVATED BLOOD PRESSURE Last administered on 12/10/16 05:04; Admin Dose 10 MG; Start 12/06/16 at 16:00 Vancomycin HCl 250 ml @ 125 mls/hr Q24H IVPB Last administered on 12/11/16 04 :23; Admin Dose 125 MLS/HR; Start 12/07/16 at 05:00 Ceftazidime/ Dextrose (Fortaz 2gm/50 ml (Pmx)) 50 ml @ 100 mls/hr Q8 IVPB Last administered on 12/11/16 12:47; Admin Dose 100 MLS/HR; Start 12/09/16 at 14:00 Metronidazole 250 mg 250 mg Q8 GTB Last administered on 12/11/16 12:47; Admin Dose 250 MG; Start 12/09/16 at 22:00 Sodium Chloride (NS) 1,000 ml @ 75 mls/hr [id number] IV Last administered on 12/11 12:48; Admin Dose 75 MLS/HR; Start 12/10/16 at 13:00 Amikacin Sulfate AMIKACIN PER PHARMACY NOTE XX ; Start 12/10/16 at 19:00 Amikacin Sulfate/ Sodium Chloride (Amikacin/NS) 150 ml @ 150 mls/hr Q24H IVPB Last administered on 12/10/16t 22:03; Admin Dose 150 MLS/HR; Start 12/10/16 at 21:00 MARIA ELENA COLLADO Dec 11, 2016 14:38
--- NOTE | 2016-12-11 17:32 | CONS ---
Date/Time of Note Date/Time of Note DATE: 12/11/16 TIME: 17:28 Assessment/Plan Assessment/Plan Chief Complaint/Hosp Course ID PROGRESS NOTE TOTAL ABX DAY # 12 => Vanco IV + FORTAZ #3 + Flagyl GT #3 + Amikacin #2 Primaxin -> DC 12/09 24H INTERVAL SUMMARY * Today less tachypneic, calm, no fevers, WBC down today PHYSICAL EXAMINATION: GENERAL: Frail 81 yo elder M w/chronic debility on the Vent, VSS, NAD HEENT: Unremarkable except no teeth NECK: Supple, trach->clean stoma and secure to Vent CHEST: Equal chest rise bilaterally, without dyspnea on observation HEART: Pulse RRR ABDOMEN: Soft, benign., peg EXTREMITIES: Warm, dry, muscle atrophy, missing finger digits SKIN: Warm, dry ID ASSESSMENT: 81 yo M w/PMHx CVA w/right hemiplegia, dementia, dysphagia-PEG, VDRF, admitted with: 1. Systemic inflammatory response syndrome with low grade temperatures, leukocytosis * WBC rising w/low grade temps 2. Healthcare-associated pneumonia: * CT Thorax: Severe dense confluent multifocal consolidation scattered throughout the lungs consistent with widespread diffuse pneumonia. * Sputum (+)PSAR = MDRO sensitive to Fortaz + GNR #2 = pending 3. Right pleural effusion. 4. 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 GERD ?Gastroparesis? 7. BPH w/suspected urinary retention - indwelling FC 8. CKD 9. 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 QUERY: ?Early UTI w/trace leuk esterase, pyuria on UA 12/06/16 11. LUEXT PICC = present on admission INVASIVES: * Trach, Peg, FC, PICC->11/30/17 ABX ALLERGIES: KNDA CURRENT ABX: TOTAL ABX DAY # 12 => Vanco IV + FORTAZ #3 + Flagyl GT #3 + Amikacin #2 Primaxin -> DC 12/09 s/p Zosyn in ED ID RECOMMENDATIONS: * Vanco IV (MRSA) * Fortaz (PSAR) * Flagyl (anaerobic empiric) coverage * Amikacin (ESBL) 3. Sacral decub looks clean -- (+)Polymicrobial MDRO on wound cx 4. Patient with poor quality of life, poor long-term prognosis and is hospice appropriate. * -> He is now a host for breeding multiple anti-biotic resistant bacterial pathogens. Doubt ABX therapy will reverse prognosis, rather will lead to further development of MDRO while prolonging the end-of-life stage. Furthermore , he is now at risk for renal failure with addition of aminoglycoside to vancomycin for ESLB + MRSA coverage. Promote ethic futility vs autonomy. . . . . Problems: Consultation Date/Type/Reason Admit Date/Time Nov 30, 2016 at 04:54 Initial Consult Date 12/01/16 Type of Consultation: id Referring Provider: CHARLETTE RUTHERFORD Exam/Review of Systems Vital Signs Vitals Vital Signs Date Time Temp Pulse Resp B/P Pulse Ox O2 Delivery O2 Flow Rate FiO2 12/11/16 16:28 101 12/11/16 16:12 50 12/11/16 15:43 98.2 22 135/65 97 Intake and Output 12/10/16 12/10/16 12/11/16 15:00 23:00 07:00 Intake Total 920 ml 920 ml Output Total 550 ml 700 ml Balance 370 ml 220 ml Results Result Diagram: 12/11/16 0940 12/11/16 0940 Results 24 hrs Laboratory Tests Test 12/11/16 09:40 12/11/16 11:35 White Blood Count 24.3 #H Red Blood Count 2.93 L Hemoglobin 8.2 L Hematocrit 26.9 L Mean Corpuscular Volume 91.8 Mean Corpuscular Hemoglobin 28.0 L Mean Corpuscular Hemoglobin Concent 30.5 L Red Cell Distribution Width 15.5 H Platelet Count 268 Mean Platelet Volume 10.5 H Neutrophils % 97.0 H Lymphocytes % 2.0 L Monocytes % 1.0 Neutrophils # 23.6 H Lymphocytes # 0.5 L Monocytes # 0.2 L Differential Comment MANUAL DIFF Large Platelets OCCASIONAL Sodium Level 138 Potassium Level 3.3 L Chloride Level 105 Carbon Dioxide Level 29 Anion Gap 7 L Blood Urea Nitrogen 30 H Creatinine 0.48 L Glucose Level 126 Calcium Level 9.6 Magnesium Level 1.9 Lab Scanned Report REFERENCE LAB Medications Medications Current Medications Acetaminophen (Tylenol Tab) 650 mg Q6H PRN PEG PAIN LEVEL 1-3 OR FEVER Last administered on 12/11/16 08:11; Admin Dose 650 MG; Start 11/30/16 at 05:00 Morphine Sulfate (morphine) 2 mg Q4H PRN IV PAIN LEVEL 7-10 Last administered on 12/11/16 04:01; Admin Dose 2 MG; Start 11/30/16 at 05:00 Miscellaneous Information 1 ea NOTE XX ; Start 11/30/16 at 05:00 Glucose (Glutose) 15 gm Q15M PRN PO DECREASED GLUCOSE; Start 11/30/16 at 05:00 Glucose (Glutose) 22.5 gm Q15M PRN PO DECREASED GLUCOSE; Start 11/30/16 at 05: 00 Dextrose (D50w Syringe) 25 ml Q15M PRN IV DECREASED GLUCOSE; Start 11/30/16 at 05:00 Dextrose (D50w Syringe) 50 ml Q15M PRN IV DECREASED GLUCOSE; Start 11/30/16 at 05:00 Glucagon (Glucagen) 1 mg Q15M PRN IM DECREASED GLUCOSE; Start 11/30/16 at 05:00 Glucose (Glutose) 15 gm Q15M PRN BUCCAL DECREASED GLUCOSE; Start 11/30/16 at 05 :00 Metoprolol Tartrate (Lopressor) 2.5 mg Q2H PRN IV heart rate over 110 Last administered on 12/10/16 06:12; Admin Dose 2.5 MG; Start 12/01/16 at 12:00 Collagenase (Santyl) 1 applic DAILY TOP Last administered on 12/11/16 08:15; Admin Dose 1 APPLIC; Start 12/02/16 at 12:00 Collagenase (Santyl) 1 applic DAILY PRN TOP PER WOUND CARE ORDERS; Start at 11:30 Mupirocin (Bactroban) 1 applic BID TOP Last administered on 12/11/16 08:13; Admin Dose 1 APPLIC; Start 12/02/16 at 21:00; Stop 12/16/16 at 20:59 Metoprolol Tartrate (Lopressor) 50 mg BID GTB Last administered on 12/11/16 08 :12; Admin Dose 50 MG; Start 12/04/16 at 21:00 Famotidine (Pepcid) 20 mg DAILY GTB Last administered on 12/11/16 08:11; Admin Dose 20 MG; Start 12/05/16 at 09:00 Losartan Potassium (Cozaar) 25 mg BID PO Last administered on 12/11/16 08:12; Admin Dose 25 MG; Start 12/05/16 at 21:00 Hydralazine HCl 10 mg 10 mg Q6H PRN IV ELEVATED BLOOD PRESSURE Last administered on 12/10/16 05:04; Admin Dose 10 MG; Start 12/06/16 at 16:00 Vancomycin HCl 250 ml @ 125 mls/hr Q24H IVPB Last administered on 12/11/16 04 :23; Admin Dose 125 MLS/HR; Start 12/07/16 at 05:00 Ceftazidime/ Dextrose (Fortaz 2gm/50 ml (Pmx)) 50 ml @ 100 mls/hr Q8 IVPB Last administered on 12/11/16 12:47; Admin Dose 100 MLS/HR; Start 12/09/16 at 14:00 Metronidazole 250 mg 250 mg Q8 GTB Last administered on 12/11/16 12:47; Admin Dose 250 MG; Start 12/09/16 at 22:00 Sodium Chloride (NS) 1,000 ml @ 75 mls/hr [id number] IV Last administered on 12/11 12:48; Admin Dose 75 MLS/HR; Start 12/10/16 at 13:00 Amikacin Sulfate AMIKACIN PER PHARMACY NOTE XX ; Start 12/10/16 at 19:00 Amikacin Sulfate/ Sodium Chloride (Amikacin/NS) 150 ml @ 150 mls/hr Q36H IVPB ; Start 12/12/16 at 10:00 OSEI BLACKWOOD NP Dec 11, 2016 17:32
[2016-12-12] VITALS (23 sets, daily range): BP systolic 134–155; BP diastolic 63–83; PULSE 91–112; RESP 18–27
[2016-12-12] MEDS: VANCOMYCIN 1 GM in NS 250 ML IVPB SCH (04:28)
[2016-12-12] MEDS: SOD CHLORIDE 0.9% 1,000 ML IV SCH ×2 (04:29→17:31)
[2016-12-12] MEDS: CEFTAZIDIME 2GM/50 ML (PMX) 50 ML IVPB SCH ×3 (05:59→21:52)
[2016-12-12] MEDS: metroNIDAZOLE 250 MG TAB GTB SCH ×3 (05:59→21:52)
[2016-12-12] MEDS: IPRATROPIUM (HFA) 12.9 GM INHALER INH SCH ×3 (07:32→23:28)
[2016-12-12] MEDS: LEVALBUTEROL (HFA) 15 GM INHALER INH SCH ×3 (07:33→23:28)
[2016-12-12 07:38] LABS: ADD SCAN DIFF NO
[2016-12-12 07:44] LABS: BASOPHILS % 0.2 % (0.0-2.0); EOSINOPHILS # 0.3 10^3/ul (0.0-0.5); EOSINOPHILS % 1.3 % (0.0-7.0); HEMATOCRIT 26.8 % (42.0-52.0); LYMPHOCYTES % 4.6 % (15.0-51.0); MEAN CORPUSCULAR HEMOGLOBIN 27.1 pg (29.0-33.0); MEAN CORPUSCULAR HGB CONC 29.9 g/dl (32.0-37.0); MEAN CORPUSCULAR VOLUME 90.8 fl (82.0-101.0); MEAN PLATELET VOLUME 10.8 fl (7.4-10.4); MONOCYTES % 4.5 % (0.0-11.0); NEUTROPHIL # 19.1 10^3/ul (1.6-7.5); NEUTROPHILS % 88.7 % (39.0-77.0); PLATELET COUNT 254 10^3/UL (140-415); RED BLOOD COUNT 2.95 10^6/ul (4.70-6.10); RED CELL DISTRIBUTION WIDTH 15.9 % (11.5-14.5); WHITE BLOOD COUNT 21.6 10^3/ul (4.8-10.8)
[2016-12-12 08:02] LABS: MAGNESIUM 1.8 mg/dl (1.7-2.5); PHOSPHORUS 2.9 mg/dl (2.5-4.9)
[2016-12-12 08:08] LABS: CALCIUM 9.7 mg/dl (8.4-10.2); CREATININE 0.49 mg/dl (0.61-1.24); POTASSIUM 3.4 mmol/L (3.5-5.1)
[2016-12-12] MEDS: ACETAMINOPHEN 325 MG TAB PEG PRN ×2 (08:50→15:21)
[2016-12-12] MEDS: METOPROLOL 25 MG TAB GTB SCH ×2 (08:51→20:11)
[2016-12-12] MEDS: MUPIROCIN 2% 22 GM OINT TOP SCH ×2 (08:51→20:11)
[2016-12-12] MEDS: FAMOTIDINE 20 MG TAB GTB SCH (08:51)
[2016-12-12] MEDS: LOSARTAN 25 MG TAB PO SCH ×2 (08:51→20:11)
[2016-12-12] MEDS: COLLAGENASE 30 GM TUBE TOP SCH (08:52)
[2016-12-12] MEDS: SOD CHLORIDE 0.9% IVPB SCH (10:45)
[2016-12-12] MEDS: AMIKACIN IVPB SCH (10:45)
--- NOTE | 2016-12-12 11:49 | CONS ---
Date/Time of Note Date/Time of Note DATE: 12/12/16 TIME: 11:45 Assessment/Plan Assessment/Plan Additional Assessment/Plan Ventilator settings; AC of 18, tidal volume 550, PEEP of 5, 40% FiO2. Assessment recommendations; 1. Patient admitted for severe right lower lobe pneumonia possibly aspiration. 2. Chronic respiratory failure due to quadriplegia. Continue current treatment. Consultation Date/Type/Reason Admit Date/Time Nov 30, 2016 at 04:54 Initial Consult Date 12/01/16 Type of Consultation: Pulmonary Referring Provider: CHARLETTE RUTHERFORD 24 HR Interval Summary Free Text/Dictation Patient condition remains stable. Remains awake alert. Has remained hemodynamically stable. General exam; elderly male, on ventilator via tracheostomy currently in no distress. Exam/Review of Systems Vital Signs Vitals Vital Signs Date Time Temp Pulse Resp B/P Pulse Ox O2 Delivery O2 Flow Rate FiO2 12/12/16 11:00 92 22 98 60 12/12/16 08:09 98.6 134/63 Intake and Output 12/11/16 12/11/16 12/12/16 15:00 23:00 07:00 Intake Total 970 ml 2080 ml Output Total 900 ml 1200 ml Balance 70 ml 880 ml Exam HEENT exam is; supple neck, no JVD. No lymphadenopathy. Midline trachea. No thyromegaly. Patient is edentulous. Tracheostomy in place with clean insertion site. Chest examination; left lung is clear to auscultation with crackles involving the right lower lobe. S1-S2 audible, no murmurs. Regular rhythm. Abdomen examination; soft, G-tube in place. Nontender. No organomegaly. Bowel sounds audible. Extremity examination; no peripheral edema. SPARE HAND examination; patient is awake alert has intact cranial nerves and has stable quadriplegia. Results Result Diagram: 12/12/16 0704 12/12/16 0704 Results 24 hrs Laboratory Tests Test 12/12/16 07:04 White Blood Count 21.6 H Red Blood Count 2.95 L Hemoglobin 8.0 L Hematocrit 26.8 L Mean Corpuscular Volume 90.8 Mean Corpuscular Hemoglobin 27.1 L Mean Corpuscular Hemoglobin Concent 29.9 L Red Cell Distribution Width 15.9 H Platelet Count 254 Mean Platelet Volume 10.8 H Neutrophils % 88.7 H Lymphocytes % 4.6 L Monocytes % 4.5 Eosinophils % 1.3 Basophils % 0.2 Nucleated Red Blood Cells % 0.0 Neutrophils # 19.1 H Lymphocytes # 1.0 Monocytes # 1.0 H Eosinophils # 0.3 Basophils # 0.0 Nucleated Red Blood Cells # 0.0 Sodium Level 138 Potassium Level 3.4 L Chloride Level 105 Carbon Dioxide Level 30 Anion Gap 6 L Blood Urea Nitrogen 28 H Creatinine 0.49 L Glucose Level 129 Calcium Level 9.7 Phosphorus Level 2.9 Magnesium Level 1.8 Medications Medications Current Medications Acetaminophen (Tylenol Tab) 650 mg Q6H PRN PEG PAIN LEVEL 1-3 OR FEVER Last administered on 12/12/16 08:50; Admin Dose 650 MG; Start 11/30/16 at 05:00 Morphine Sulfate (morphine) 2 mg Q4H PRN IV PAIN LEVEL 7-10 Last administered on 12/11/16 22:23; Admin Dose 2 MG; Start 11/30/16 at 05:00 Miscellaneous Information 1 ea NOTE XX ; Start 11/30/16 at 05:00 Glucose (Glutose) 15 gm Q15M PRN PO DECREASED GLUCOSE; Start 11/30/16 at 05:00 Glucose (Glutose) 22.5 gm Q15M PRN PO DECREASED GLUCOSE; Start 11/30/16 at 05: 00 Dextrose (D50w Syringe) 25 ml Q15M PRN IV DECREASED GLUCOSE; Start 11/30/16 at 05:00 Dextrose (D50w Syringe) 50 ml Q15M PRN IV DECREASED GLUCOSE; Start 11/30/16 at 05:00 Glucagon (Glucagen) 1 mg Q15M PRN IM DECREASED GLUCOSE; Start 11/30/16 at 05:00 Glucose (Glutose) 15 gm Q15M PRN BUCCAL DECREASED GLUCOSE; Start 11/30/16 at 05 :00 Metoprolol Tartrate (Lopressor) 2.5 mg Q2H PRN IV heart rate over 110 Last administered on 12/10/16 06:12; Admin Dose 2.5 MG; Start 12/01/16 at 12:00 Collagenase (Santyl) 1 applic DAILY TOP Last administered on 12/12/16 08:52; Admin Dose 1 APPLIC; Start 12/02/16 at 12:00 Collagenase (Santyl) 1 applic DAILY PRN TOP PER WOUND CARE ORDERS; Start at 11:30 Mupirocin (Bactroban) 1 applic BID TOP Last administered on 12/12/16 08:51; Admin Dose 1 APPLIC; Start 12/02/16 at 21:00; Stop 12/16/16 at 20:59 Metoprolol Tartrate (Lopressor) 50 mg BID GTB Last administered on 12/12/16 08 :51; Admin Dose 50 MG; Start 12/04/16 at 21:00 Famotidine (Pepcid) 20 mg DAILY GTB Last administered on 12/12/16 08:51; Admin Dose 20 MG; Start 12/05/16 at 09:00 Losartan Potassium (Cozaar) 25 mg BID PO Last administered on 12/12/16 08:51; Admin Dose 25 MG; Start 12/05/16 at 21:00 Hydralazine HCl 10 mg 10 mg Q6H PRN IV ELEVATED BLOOD PRESSURE Last administered on 12/10/16 05:04; Admin Dose 10 MG; Start 12/06/16 at 16:00 Vancomycin HCl 250 ml @ 125 mls/hr Q24H IVPB Last administered on 12/12/16 04 :28; Admin Dose 125 MLS/HR; Start 12/07/16 at 05:00 Ceftazidime/ Dextrose (Fortaz 2gm/50 ml (Pmx)) 50 ml @ 100 mls/hr Q8 IVPB Last administered on 12/12/16 05:59; Admin Dose 100 MLS/HR; Start 12/09/16 at 14:00 Metronidazole 250 mg 250 mg Q8 GTB Last administered on 12/12/16 05:59; Admin Dose 250 MG; Start 12/09/16 at 22:00 Sodium Chloride (NS) 1,000 ml @ 75 mls/hr [id number] IV Last administered on 12/12 04:29; Admin Dose 75 MLS/HR; Start 12/10/16 at 13:00 Amikacin Sulfate AMIKACIN PER PHARMACY NOTE XX ; Start 12/10/16 at 19:00 Amikacin Sulfate/ Sodium Chloride (Amikacin/NS) 150 ml @ 150 mls/hr Q36H IVPB Last administered on 12/12/16 10:45; Admin Dose 150 MLS/HR; Start 12/12/16 at 10:00 MARIA ELENA COLLADO Dec 12, 2016 11:48
[2016-12-12] MEDS ORDERED: MAGNESIUM SULFATE 2 GM/50 ML 50 ML IVPB ONE (13:30)
[2016-12-12] MEDS ORDERED: POTASSIUM CHLORIDE 20 MEQ POWDER FOR ORAL SOLN GTB ONE (13:30)
--- NOTE | 2016-12-12 14:14 | PN ---
Date/Time of Note Date/Time of Note DATE: 12/12/16 TIME: 13:58 Assessment/Plan VTE Prophylaxis VTE Prophylaxis Intervention: SCD's Lines/Catheters IV Catheter Type (from Nrsg): PICC Line Central line still needed: Yes (for IV access ) Urinary Cath still in place: Yes Reason Cath still needed: other (indicate) (monitoring UOP ) Assessment/Plan Assessment/Plan 81 yo man with: 1. Sepsis, Bilateral Pneumonia, HCAP vs VAP, CT chest with severe bilateral PNA and CT neck with OA. Polymicrobial and MDR organisms Amikacin added yesterday and Leukocytosis better today with WBC at 24K today. Repeat Blood cx from PICC and periph, UA/Ucx NGTD x 3 days. C diff pending but no diarrhea and has been on Flagyl empirically . On IVF currently at gentle rate. Follow up further ID recs. 2. Chronic vent-dependent respiratory failure, stable on Vent, oxygenating well. Per family has been able to have some puree at subacute facilityn while on the vent? Continue Vancomycin, Ceftazidime and now Amikacin. Appreciate Pulmonary recommendations, Repeat CT chest pending. 3. Hypokalemia/Hypomagnesemia: Repleting Mag and K prn 4. Severe anemia on admission, possible GI bleeding, but if so resolved now. Continue PPI. Hb Ok. No evidence for active bleeding for now. Back on Iron supplement. 5. Elevated troponins in setting of a fib with RVR and sepsis, CAD HR controlled with Bblocker, up to 50 mg po bid. Appreciate Cardiology recommendations. No anticoag due to Anemia 6. MRSA nares: Bactroban, on Vancomycin already 7. Sacral Decub, seems to be healing well per RN and wound care but cx polymicrobial with MDRO. Abx adjusted by ID and on wound care protocol. 8. Hypertension: Continue Metoprolol at 50 mg po bid and Losartan as long as BP tolerating. Prophylaxis: Continue SCDs and Famotidine Disposition: On contact isolation and Telemetry. Continue current care. Seems to be improving some x 2 days but mental status varies. Prognosis remains poor to fair at best. Patient is DNR Subjective 24 Hr Interval Summary Free Text/Dictation Patient remains hemodynamically stable today Still on/off lethargic however WBC seems to be trending down x 2 days now but patient on multiple abx and with MDRO culturing out Exam/Review of Systems Vital Signs Vitals Vital Signs Date Time Temp Pulse Resp B/P Pulse Ox O2 Delivery O2 Flow Rate FiO2 12/12/16 12:19 94 12/12/16 12:06 97.8 20 142/68 98 12/12/16 12:02 50 Intake and Output 12/11/16 12/11/16 12/12/16 15:00 23:00 07:00 Intake Total 970 ml 2080 ml Output Total 900 ml 1200 ml Balance 70 ml 880 ml Exam Constitutional: frail, other (lethargic ) Respiratory: crackles/rales (some rales bilaterally ), diminished breath sounds , other (on Vent with trach in place ) Cardiovascular: nl pulses, regular rate and rhythm Gastrointestinal: non-tender, other (Gtube in place and tolerating Tube feedings so far ), soft Musculoskeletal: other (muscle wasting ) Extremities: normal pulses Neurological: THERMAL SPRAY OPERATOR II-XII intact, lethargic, other (trached and vented and bed ridden) Results Result Diagram: 12/12/16 0704 12/12/16 0704 Results 24 hrs Laboratory Tests Test 12/12/16 07:04 White Blood Count 21.6 H Red Blood Count 2.95 L Hemoglobin 8.0 L Hematocrit 26.8 L Mean Corpuscular Volume 90.8 Mean Corpuscular Hemoglobin 27.1 L Mean Corpuscular Hemoglobin Concent 29.9 L Red Cell Distribution Width 15.9 H Platelet Count 254 Mean Platelet Volume 10.8 H Neutrophils % 88.7 H Lymphocytes % 4.6 L Monocytes % 4.5 Eosinophils % 1.3 Basophils % 0.2 Nucleated Red Blood Cells % 0.0 Neutrophils # 19.1 H Lymphocytes # 1.0 Monocytes # 1.0 H Eosinophils # 0.3 Basophils # 0.0 Nucleated Red Blood Cells # 0.0 Sodium Level 138 Potassium Level 3.4 L Chloride Level 105 Carbon Dioxide Level 30 Anion Gap 6 L Blood Urea Nitrogen 28 H Creatinine 0.49 L Glucose Level 129 Calcium Level 9.7 Phosphorus Level 2.9 Magnesium Level 1.8 Medications Medications Current Medications Acetaminophen (Tylenol Tab) 650 mg Q6H PRN PEG PAIN LEVEL 1-3 OR FEVER Last administered on 12/12/16t 08:50; Admin Dose 650 MG; Start 11/30/16 at 05:00 Morphine Sulfate (morphine) 2 mg Q4H PRN IV PAIN LEVEL 7-10 Last administered on 12/11/16 22:23; Admin Dose 2 MG; Start 11/30/16 at 05:00 Miscellaneous Information 1 ea NOTE XX ; Start 11/30/16 at 05:00 Glucose (Glutose) 15 gm Q15M PRN PO DECREASED GLUCOSE; Start 11/30/16 at 05:00 Glucose (Glutose) 22.5 gm Q15M PRN PO DECREASED GLUCOSE; Start 11/30/16 at 05: 00 Dextrose (D50w Syringe) 25 ml Q15M PRN IV DECREASED GLUCOSE; Start 11/30/16 at 05:00 Dextrose (D50w Syringe) 50 ml Q15M PRN IV DECREASED GLUCOSE; Start 11/30/16 at 05:00 Glucagon (Glucagen) 1 mg Q15M PRN IM DECREASED GLUCOSE; Start 11/30/16 at 05:00 Glucose (Glutose) 15 gm Q15M PRN BUCCAL DECREASED GLUCOSE; Start 11/30/16 at 05 :00 Metoprolol Tartrate (Lopressor) 2.5 mg Q2H PRN IV heart rate over 110 Last administered on 12/10/16 06:12; Admin Dose 2.5 MG; Start 12/01/16 at 12:00 Collagenase (Santyl) 1 applic DAILY TOP Last administered on 12/12/16 08:52; Admin Dose 1 APPLIC; Start 12/02/16 at 12:00 Collagenase (Santyl) 1 applic DAILY PRN TOP PER WOUND CARE ORDERS; Start at 11:30 Mupirocin (Bactroban) 1 applic BID TOP Last administered on 12/12/16 08:51; Admin Dose 1 APPLIC; Start 12/02/16 at 21:00; Stop 12/16/16 at 20:59 Metoprolol Tartrate (Lopressor) 50 mg BID GTB Last administered on 12/12/16 08 :51; Admin Dose 50 MG; Start 12/04/16 at 21:00 Famotidine (Pepcid) 20 mg DAILY GTB Last administered on 12/12/16 08:51; Admin Dose 20 MG; Start 12/05/16 at 09:00 Losartan Potassium (Cozaar) 25 mg BID PO Last administered on 12/12/16 08:51; Admin Dose 25 MG; Start 12/05/16 at 21:00 Hydralazine HCl 10 mg 10 mg Q6H PRN IV ELEVATED BLOOD PRESSURE Last administered on 12/10/16 05:04; Admin Dose 10 MG; Start 12/06/16 at 16:00 Vancomycin HCl 250 ml @ 125 mls/hr Q24H IVPB Last administered on 12/12/16 04 :28; Admin Dose 125 MLS/HR; Start 12/07/16 at 05:00 Ceftazidime/ Dextrose (Fortaz 2gm/50 ml (Pmx)) 50 ml @ 100 mls/hr Q8 IVPB Last administered on 12/12/16 13:21; Admin Dose 100 MLS/HR; Start 12/09/16 at 14:00 Metronidazole 250 mg 250 mg Q8 GTB Last administered on 12/12/16 13:21; Admin Dose 250 MG; Start 12/09/16 at 22:00 Sodium Chloride (NS) 1,000 ml @ 75 mls/hr [id number] IV Last administered on 12/12 04:29; Admin Dose 75 MLS/HR; Start 12/10/16 at 13:00 Amikacin Sulfate AMIKACIN PER PHARMACY NOTE XX ; Start 12/10/16 at 19:00 Amikacin Sulfate 850 mg/Sodium Chloride 150 ml @ 150 mls/hr Q36H IVPB Last administered on 12/12/16 10:45; Admin Dose 150 MLS/HR; Start 12/12/16 at 10:00 Magnesium Sulfate (Magnesium Sulfate 2 Gm/50 ml) 50 ml @ 25 mls/hr ONCE ONCE IVPB ; Start 12/12/16 at 13:30; Stop 12/12/16 at 15:29 CHARLETTE RUTHERFORD Dec 12, 2016 14:08
--- NOTE | 2016-12-12 14:24 | CONS ---
Date/Time of Note Date/Time of Note DATE: 12/12/16 TIME: 14:20 Assessment/Plan Assessment/Plan Chief Complaint/Hosp Course ID PROGRESS NOTE TOTAL ABX DAY # 13 => Vanco IV + FORTAZ #4 + Flagyl GT #4 + Amikacin #3 Primaxin -> DC 12/09 24H INTERVAL SUMMARY * Overall slow improvement -- afebrile, calm, no fevers, WBC continues downtrend , looks more comfortable on the Vent * Chronic frail 81 yo w/cachexia, awakens and smiles PHYSICAL EXAMINATION: GENERAL: Frail 81 yo elder M w/chronic debility on the Vent, VSS, NAD HEENT: Unremarkable except no teeth NECK: Supple, trach->clean stoma and secure to Vent CHEST: Equal chest rise bilaterally, without dyspnea on observation HEART: Pulse RRR ABDOMEN: Soft, benign., peg EXTREMITIES: Warm, dry, muscle atrophy, missing finger digits SKIN: Warm, dry ID ASSESSMENT: 81 yo M w/PMHx CVA w/right hemiplegia, dementia, dysphagia-PEG, VDRF, admitted with: 1. Systemic inflammatory response syndrome with low grade temperatures, leukocytosis * WBC rising w/low grade temps 2. Healthcare-associated pneumonia: * CT Thorax: Severe dense confluent multifocal consolidation scattered throughout the lungs consistent with widespread diffuse pneumonia. * Sputum (+)PSAR = MDRO sensitive to Fortaz + GNR #2 = pending 3. Right pleural effusion. 4. 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 GERD ?Gastroparesis? 7. BPH w/suspected urinary retention - indwelling FC 8. CKD 9. 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 QUERY: ?Early UTI w/trace leuk esterase, pyuria on UA 12/06/16 11. LUEXT PICC = present on admission INVASIVES: * Trach, Peg, FC, PICC->11/30/17 ABX ALLERGIES: KNDA TOTAL ABX DAY # 13 => Vanco IV + FORTAZ #4 + Flagyl GT #4 + Amikacin #3 Primaxin -> DC 12/09 s/p Zosyn in ED ID RECOMMENDATIONS: CONTINUE CURRENT ABX: * Vanco IV (MRSA) * Fortaz (PSAR) * Flagyl (anaerobic empiric) coverage * Amikacin (ESBL) 3. Sacral decub looks clean -- (+)Polymicrobial MDRO on wound cx 4. Patient has improved although he remains frail, cachectic, chronic debility, chronic recurrent sepsis will continue * -> He is now a host for breeding multiple anti-biotic resistant bacterial pathogens. Doubt ABX therapy will reverse prognosis, rather will lead to further development of MDRO while prolonging the end-of-life stage. Furthermore , he is now at risk for renal failure with addition of aminoglycoside to vancomycin for ESLB + MRSA coverage. Promote ethic futility vs autonomy. . . . . Problems: Consultation Date/Type/Reason Admit Date/Time Nov 30, 2016 at 04:54 Initial Consult Date 12/01/16 Type of Consultation: ID Referring Provider: CHARLETTE RUTHERFORD Exam/Review of Systems Vital Signs Vitals Vital Signs Date Time Temp Pulse Resp B/P Pulse Ox O2 Delivery O2 Flow Rate FiO2 12/12/16 12:19 94 12/12/16 12:06 97.8 20 142/68 98 12/12/16 12:02 50 Intake and Output 12/11/16 12/11/16 12/12/16 15:00 23:00 07:00 Intake Total 970 ml 2080 ml Output Total 900 ml 1200 ml Balance 70 ml 880 ml Results Result Diagram: 12/12/16 0704 12/12/16 0704 Results 24 hrs Laboratory Tests Test 12/12/16 07:04 White Blood Count 21.6 H Red Blood Count 2.95 L Hemoglobin 8.0 L Hematocrit 26.8 L Mean Corpuscular Volume 90.8 Mean Corpuscular Hemoglobin 27.1 L Mean Corpuscular Hemoglobin Concent 29.9 L Red Cell Distribution Width 15.9 H Platelet Count 254 Mean Platelet Volume 10.8 H Neutrophils % 88.7 H Lymphocytes % 4.6 L Monocytes % 4.5 Eosinophils % 1.3 Basophils % 0.2 Nucleated Red Blood Cells % 0.0 Neutrophils # 19.1 H Lymphocytes # 1.0 Monocytes # 1.0 H Eosinophils # 0.3 Basophils # 0.0 Nucleated Red Blood Cells # 0.0 Sodium Level 138 Potassium Level 3.4 L Chloride Level 105 Carbon Dioxide Level 30 Anion Gap 6 L Blood Urea Nitrogen 28 H Creatinine 0.49 L Glucose Level 129 Calcium Level 9.7 Phosphorus Level 2.9 Magnesium Level 1.8 Medications Medications Current Medications Acetaminophen (Tylenol Tab) 650 mg Q6H PRN PEG PAIN LEVEL 1-3 OR FEVER Last administered on 12/12/16 08:50; Admin Dose 650 MG; Start 11/30/16 at 05:00 Morphine Sulfate (morphine) 2 mg Q4H PRN IV PAIN LEVEL 7-10 Last administered on 12/11/16 22:23; Admin Dose 2 MG; Start 11/30/16 at 05:00 Miscellaneous Information 1 ea NOTE XX ; Start 11/30/16 at 05:00 Glucose (Glutose) 15 gm Q15M PRN PO DECREASED GLUCOSE; Start 11/30/16 at 05:00 Glucose (Glutose) 22.5 gm Q15M PRN PO DECREASED GLUCOSE; Start 11/30/16 at 05: 00 Dextrose (D50w Syringe) 25 ml Q15M PRN IV DECREASED GLUCOSE; Start 11/30/16 at 05:00 Dextrose (D50w Syringe) 50 ml Q15M PRN IV DECREASED GLUCOSE; Start 11/30/16 at 05:00 Glucagon (Glucagen) 1 mg Q15M PRN IM DECREASED GLUCOSE; Start 11/30/16 at 05:00 Glucose (Glutose) 15 gm Q15M PRN BUCCAL DECREASED GLUCOSE; Start 11/30/16 at 05 :00 Metoprolol Tartrate (Lopressor) 2.5 mg Q2H PRN IV heart rate over 110 Last administered on 12/10/16 06:12; Admin Dose 2.5 MG; Start 12/01/16 at 12:00 Collagenase (Santyl) 1 applic DAILY TOP Last administered on 12/12/16 08:52; Admin Dose 1 APPLIC; Start 12/02/16 at 12:00 Collagenase (Santyl) 1 applic DAILY PRN TOP PER WOUND CARE ORDERS; Start at 11:30 Mupirocin (Bactroban) 1 applic BID TOP Last administered on 12/12/16 08:51; Admin Dose 1 APPLIC; Start 12/02/16 at 21:00; Stop 12/16/16 at 20:59 Metoprolol Tartrate (Lopressor) 50 mg BID GTB Last administered on 12/12/16 08 :51; Admin Dose 50 MG; Start 12/04/16 at 21:00 Famotidine (Pepcid) 20 mg DAILY GTB Last administered on 12/12/16 08:51; Admin Dose 20 MG; Start 12/05/16 at 09:00 Losartan Potassium (Cozaar) 25 mg BID PO Last administered on 12/12/16 08:51; Admin Dose 25 MG; Start 12/05/16 at 21:00 Hydralazine HCl 10 mg 10 mg Q6H PRN IV ELEVATED BLOOD PRESSURE Last administered on 12/10/16 05:04; Admin Dose 10 MG; Start 12/06/16 at 16:00 Vancomycin HCl 250 ml @ 125 mls/hr Q24H IVPB Last administered on 12/12/16 04 :28; Admin Dose 125 MLS/HR; Start 12/07/16 at 05:00 Ceftazidime/ Dextrose (Fortaz 2gm/50 ml (Pmx)) 50 ml @ 100 mls/hr Q8 IVPB Last administered on 12/12/16 13:21; Admin Dose 100 MLS/HR; Start 12/09/16 at 14:00 Metronidazole 250 mg 250 mg Q8 GTB Last administered on 12/12/16 13:21; Admin Dose 250 MG; Start 12/09/16 at 22:00 Sodium Chloride (NS) 1,000 ml @ 75 mls/hr [id number] IV Last administered on 12/12 04:29; Admin Dose 75 MLS/HR; Start 12/10/16 at 13:00 Amikacin Sulfate AMIKACIN PER PHARMACY NOTE XX ; Start 12/10/16 at 19:00 Amikacin Sulfate 850 mg/Sodium Chloride 150 ml @ 150 mls/hr Q36H IVPB Last administered on 12/12/16 10:45; Admin Dose 150 MLS/HR; Start 12/12/16 at 10:00 Magnesium Sulfate (Magnesium Sulfate 2 Gm/50 ml) 50 ml @ 25 mls/hr ONCE ONCE IVPB ; Start 12/12/16 at 13:30; Stop 12/12/16 at 15:29 OSEI BLACKWOOD NP Dec 12, 2016 14:24
--- NOTE | 2016-12-12 14:26 | RADRPT ---
PROCEDURE: CT CHEST WITHOUT CONTRAST CLINICAL INDICATION: Pneumonia TECHNIQUE: Volumetrically acquired images of the thorax obtained without intravenous contrast were reformatted in the axial, coronal, and sagittal planes. CTDI = 3.4 mGy; DLP = 338 mGy-cm. One or m ore of the following dose reduction technique were used: Automatic exposure control, adjustment of t he mA and/or kV according to patient size, and use of iterative reconstruction technique. COMPARISON: CT scan from 12/03/2016. FINDINGS: LOWER NECK AND CHEST WALL: Normal. AIRWAYS: Stable tracheostomy. The distal trachea and central airways are mildly narrowed. Diffuse bronchial wall thickening is seen. LUNGS: Interval worsening of diffuse bronchocentric consolidation, centrilobular ground-glass, and s cattered nodules seen throughout both lungs. PLEURA: Trace left effusion is seen with associated atelectasis.. MEDIASTINUM: No mediastinal mass. LYMPH NODES: Several enlarged mediastinal lymph nodes are present. The following examples given in short axis diameter : Right lower paratracheal measuring 18 mm, right upper paratracheal measuring 12 mm. CARDIAC: The heart size is normal. No pericardial effusion or thickening. VASCULAR: The aorta and main pulmonary artery are normal in caliber. Aortic and coronary atheroscl erotic calcifications are present. OSSEOUS: No suspicious osseous lesions. Scattered degenerative changes of the thoracic spine is vis ualized. Limited evaluation of the upper abdomen demonstrates a minimal amount of subdiaphragmatic fluid seen on the right, likely reactive in nature.. IMPRESSION: 1. Interval worsening of diffuse bronchocentric consolidation, centrilobular ground-glass, and scatt ered nodules throughout both lungs consistent with multifocal bronchiolitis/bronchopneumonia. Recomm end continued follow-up to exclude tumor and underlying lymphangitic carcinomatosis. Enlarged media stinal lymph nodes are likely reactive.. 2. 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 3. Trace right subdiaphragmatic fluid. 4. Trace left pleural effusion with associated atelectasis. RPTAT:PP .Jason Bundy MD, MD Date Time Electronically viewed and signed by .Jason Bundy MD, on 12/12/2016 14:26 .V/
[2016-12-12] MEDS: morphine 2 MG INJ IV PRN (20:12)
[2016-12-13] VITALS (29 sets, daily range): BP systolic 138–174; BP diastolic 70–96; PULSE 11–173; RESP 16–28
[2016-12-13] MEDS: VANCOMYCIN 1 GM in NS 250 ML IVPB SCH (05:07)
[2016-12-13] MEDS: hydrALAzine 20 MG INJ IV PRN ×2 (05:22→18:26)
[2016-12-13] MEDS: metroNIDAZOLE 250 MG TAB GTB SCH ×3 (05:22→21:24)
[2016-12-13] MEDS: CEFTAZIDIME 2GM/50 ML (PMX) 50 ML IVPB SCH ×3 (05:57→21:24)
[2016-12-13] MEDS: morphine 2 MG INJ IV PRN (05:57)
[2016-12-13 06:46] LABS: ADD SCAN DIFF NO
[2016-12-13 06:55] LABS: BASOPHIL # 0.1 10^3/ul (0.0-0.1); BASOPHILS % 0.3 % (0.0-2.0); EOSINOPHILS # 0.5 10^3/ul (0.0-0.5); EOSINOPHILS % 2.6 % (0.0-7.0); HEMATOCRIT 27.1 % (42.0-52.0); HEMOGLOBIN 8.3 g/dl (14.0-18.0); LYMPHOCYTES # 1.2 10^3/ul (0.8-2.9); LYMPHOCYTES % 6.7 % (15.0-51.0); MEAN CORPUSCULAR HEMOGLOBIN 27.9 pg (29.0-33.0); MEAN CORPUSCULAR HGB CONC 30.6 g/dl (32.0-37.0); MEAN CORPUSCULAR VOLUME 90.9 fl (82.0-101.0); MEAN PLATELET VOLUME 11.3 fl (7.4-10.4); MONOCYTE # 0.9 10^3/ul (0.3-0.9); MONOCYTES % 4.7 % (0.0-11.0); NEUTROPHIL # 15.4 10^3/ul (1.6-7.5); NEUTROPHILS % 84.7 % (39.0-77.0); PLATELET COUNT 254 10^3/UL (140-415); RED BLOOD COUNT 2.98 10^6/ul (4.70-6.10); RED CELL DISTRIBUTION WIDTH 15.9 % (11.5-14.5); WHITE BLOOD COUNT 18.1 10^3/ul (4.8-10.8)
[2016-12-13 07:18] LABS: MAGNESIUM 2.3 mg/dl (1.7-2.5)
[2016-12-13] MEDS: IPRATROPIUM (HFA) 12.9 GM INHALER INH SCH ×2 (07:25→16:58)
[2016-12-13] MEDS: LEVALBUTEROL (HFA) 15 GM INHALER INH SCH ×2 (07:26→16:59)
[2016-12-13] MEDS: FAMOTIDINE 20 MG TAB GTB SCH (08:34)
[2016-12-13] MEDS: ACETAMINOPHEN 325 MG TAB PEG PRN (08:34)
[2016-12-13] MEDS: LOSARTAN 25 MG TAB PO SCH ×2 (08:34→20:32)
[2016-12-13] MEDS: METOPROLOL 25 MG TAB GTB SCH ×2 (08:34→20:33)
[2016-12-13] MEDS: MUPIROCIN 2% 22 GM OINT TOP SCH ×2 (08:35→20:33)
[2016-12-13] MEDS: COLLAGENASE 30 GM TUBE TOP SCH (08:35)
[2016-12-13] MEDS: SOD CHLORIDE 0.9% 1,000 ML IV SCH ×2 (08:40→20:33)
--- NOTE | 2016-12-13 10:28 | CONS ---
Date/Time of Note Date/Time of Note DATE: 12/13/16 TIME: 10:26 Assessment/Plan Assessment/Plan Additional Assessment/Plan CT chest was reviewed from yesterday without contrast which is again showing extensive consolidative changes involving the right lower lobe. Ventilator settings; AC of 18, tidal volume 550, PEEP of 5, 40% FiO2. Assessment recommendations; next 1. Patient admitted for severe right-sided pneumonia possibly aspiration. 2. Chronic respiratory failure due to quadriplegia. 3. Hypertension. Continue current treatment. Consultation Date/Type/Reason Admit Date/Time Nov 30, 2016 at 04:54 Initial Consult Date 12/01/16 Type of Consultation: Pulmonary Referring Provider: CHARLETTE RUTHERFORD 24 HR Interval Summary Free Text/Dictation Patient condition stable. Remains awake alert. Denies any shortness of breath , chest pain, next General exam; elderly male, on ventilator via tracheostomy, currently in no distress, awake alert. Exam/Review of Systems Vital Signs Vitals Vital Signs Date Time Temp Pulse Resp B/P Pulse Ox O2 Delivery O2 Flow Rate FiO2 12/13/16 09:20 81 24 97 50 12/13/16 07:56 97.5 138/73 12/13/16 06:04 Mechanical Ventilator Intake and Output 12/12/16 12/12/16 12/13/16 15:00 23:00 07:00 Intake Total 1005 ml 1075 ml Output Total 1200 ml 1150 ml Balance -195 ml -75 ml Exam HEENT examination; supple neck, no JVD. No lymphadenopathy. Midline trachea. No thyromegaly. Tracheostomy in place with clean insertion site. Patient is edentulous. Chest examination; left lung is clear to auscultation with crackles and diminished breath sounds right lower lobe. S1-S2 audible, no murmurs. Regular rhythm. Abdomen examination; soft, nondistended. No organomegaly. G-tube in place. Bowel sounds audible. Extremity exam is; no peripheral edema. LAST SAWYER examination; patient is awake alert has stable quadriplegia. Results Result Diagram: 12/13/16 0540 12/12/16 0704 Results 24 hrs Laboratory Tests Test 12/13/16 05:40 White Blood Count 18.1 H Red Blood Count 2.98 L Hemoglobin 8.3 L Hematocrit 27.1 L Mean Corpuscular Volume 90.9 Mean Corpuscular Hemoglobin 27.9 L Mean Corpuscular Hemoglobin Concent 30.6 L Red Cell Distribution Width 15.9 H Platelet Count 254 Mean Platelet Volume 11.3 H Neutrophils % 84.7 H Lymphocytes % 6.7 L Monocytes % 4.7 Eosinophils % 2.6 Basophils % 0.3 Nucleated Red Blood Cells % 0.0 Neutrophils # 15.4 H Lymphocytes # 1.2 Monocytes # 0.9 Eosinophils # 0.5 Basophils # 0.1 Nucleated Red Blood Cells # 0.0 Phosphorus Level 3.0 Magnesium Level 2.3 Medications Medications Current Medications Acetaminophen (Tylenol Tab) 650 mg Q6H PRN PEG PAIN LEVEL 1-3 OR FEVER Last administered on 12/13/16 08:34; Admin Dose 650 MG; Start 11/30/16 at 05:00 Morphine Sulfate (morphine) 2 mg Q4H PRN IV PAIN LEVEL 7-10 Last administered on 12/13/16 05:57; Admin Dose 2 MG; Start 11/30/16 at 05:00 Miscellaneous Information 1 ea NOTE XX ; Start 11/30/16 at 05:00 Glucose (Glutose) 15 gm Q15M PRN PO DECREASED GLUCOSE; Start 11/30/16 at 05:00 Glucose (Glutose) 22.5 gm Q15M PRN PO DECREASED GLUCOSE; Start 11/30/16 at 05: 00 Dextrose (D50w Syringe) 25 ml Q15M PRN IV DECREASED GLUCOSE; Start 11/30/16 at 05:00 Dextrose (D50w Syringe) 50 ml Q15M PRN IV DECREASED GLUCOSE; Start 11/30/16 at 05:00 Glucagon (Glucagen) 1 mg Q15M PRN IM DECREASED GLUCOSE; Start 11/30/16 at 05:00 Glucose (Glutose) 15 gm Q15M PRN BUCCAL DECREASED GLUCOSE; Start 11/30/16 at 05 :00 Metoprolol Tartrate (Lopressor) 2.5 mg Q2H PRN IV heart rate over 110 Last administered on 12/10/16 06:12; Admin Dose 2.5 MG; Start 12/01/16 at 12:00 Collagenase (Santyl) 1 applic DAILY TOP Last administered on 12/13/16 08:35; Admin Dose 1 APPLIC; Start 12/02/16 at 12:00 Collagenase (Santyl) 1 applic DAILY PRN TOP PER WOUND CARE ORDERS; Start at 11:30 Mupirocin (Bactroban) 1 applic BID TOP Last administered on 12/13/16 08:35; Admin Dose 1 APPLIC; Start 12/02/16 at 21:00; Stop 12/16/16 at 20:59 Metoprolol Tartrate (Lopressor) 50 mg BID GTB Last administered on 12/13/16 08 :34; Admin Dose 50 MG; Start 12/04/16 at 21:00 Famotidine (Pepcid) 20 mg DAILY GTB Last administered on 12/13/16 08:34; Admin Dose 20 MG; Start 12/05/16 at 09:00 Losartan Potassium (Cozaar) 25 mg BID PO Last administered on 12/13/16 08:34; Admin Dose 25 MG; Start 12/05/16 at 21:00 Hydralazine HCl 10 mg 10 mg Q6H PRN IV ELEVATED BLOOD PRESSURE Last administered on 12/13/16 05:22; Admin Dose 10 MG; Start 12/06/16 at 16:00 Vancomycin HCl 250 ml @ 125 mls/hr Q24H IVPB Last administered on 12/13/16 05 :07; Admin Dose 125 MLS/HR; Start 12/07/16 at 05:00 Ceftazidime/ Dextrose (Fortaz 2gm/50 ml (Pmx)) 50 ml @ 100 mls/hr Q8 IVPB Last administered on 12/13/16 05:57; Admin Dose 100 MLS/HR; Start 12/09/16 at 14:00 Metronidazole 250 mg 250 mg Q8 GTB Last administered on 12/13/16 05:22; Admin Dose 250 MG; Start 12/09/16 at 22:00 Sodium Chloride (NS) 1,000 ml @ 75 mls/hr [id number] IV Last administered on 12/13 08:40; Admin Dose 75 MLS/HR; Start 12/10/16 at 13:00 Amikacin Sulfate AMIKACIN PER PHARMACY NOTE XX ; Start 12/10/16 at 19:00 Amikacin Sulfate/ Sodium Chloride (Amikacin/NS) 150 ml @ 150 mls/hr Q36H IVPB Last administered on 12/12/16 10:45; Admin Dose 150 MLS/HR; Start 12/12/16 at 10:00 Miscellaneous Information (*Rx Drug Level Order Reminder*) VANCO TR LEVEL PRIOR... ONCE ONCE XX ; Start 12/14/16 at 04:00; Stop 12/14/16 at 04:01 Miscellaneous Information (*Rx Drug Level Order Reminder*) AMIKACIN TR LEVEL PRIOR... ONCE ONCE XX ; Start 12/13/16 at 21:00; Stop 12/13/16 at 21:01 Miscellaneous Information 1 ea NOTE XX ; Start 12/13/16 at 20:00; Stop 12/13/16 at 23:45 MARIA ELENA COLLADO Dec 13, 2016 10:28
--- NOTE | 2016-12-13 13:42 | PN ---
Date/Time of Note Date/Time of Note DATE: 12/13/16 TIME: 13:19 Assessment/Plan VTE Prophylaxis VTE Prophylaxis Intervention: SCD's Lines/Catheters IV Catheter Type (from Nrsg): PICC Line Central line still needed: Yes (for IV access ) Urinary Cath still in place: Yes Reason Cath still needed: other (indicate) (to monitor UOP ) Assessment/Plan Assessment/Plan 81 yo man with: 1. Sepsis, Bilateral Pneumonia, HCAP vs VAP, CT chest with severe bilateral PNA and CT neck with OA. Polymicrobial and MDR organisms Amikacin added yesterday and Leukocytosis better today with WBC at 18K today. On Vancomycin, Amikacin and Fortaz Repeat Blood cx from PICC and periph, UA/Ucx negative. C diff pending but no diarrhea and has been on Flagyl empirically . On IVF currently at gentle rate. Follow up further ID recs. 2. Chronic vent-dependent respiratory failure, stable on Vent, oxygenating well. Per family has been able to have some puree at subacute facilityn while on the vent? Continue Vancomycin, Ceftazidime and Amikacin. Appreciate Pulmonary recommendations, Repeat CT chest yesterday showing ongoing bilateral PNA. 3. Hypokalemia/Hypomagnesemia: BMP pending, replete K prn, Mag Ok today 4. Severe anemia on admission, possible GI bleeding, but if so resolved now. Continue PPI. Hb Ok. No evidence for active bleeding for now. Back on Iron supplement. 5. Elevated troponins in setting of a fib with RVR and sepsis, CAD HR controlled with Bblocker, up to 50 mg po bid. Appreciate Cardiology recommendations. No anticoag due to Anemia 6. MRSA nares: Bactroban, on Vancomycin already 7. Sacral Decub, seems to be healing well per RN and wound care but cx polymicrobial with MDRO. Abx adjusted by ID and on wound care protocol. 8. Hypertension: Continue Metoprolol at 50 mg po bid and Losartan as long as BP tolerating. Prophylaxis: Continue SCDs and Famotidine Disposition: On contact isolation and Telemetry. Continue current care. Seems to be improving some x3 days but mental status varies. Plan for d/c back to SNF this weekend or early next week if stable. Prognosis remains poor to fair at best. Patient is DNR Subjective 24 Hr Interval Summary Free Text/Dictation Patient more awake and alert today ? cuff leak again form trach Afebrile and WBC slowly trending down Exam/Review of Systems Vital Signs Vitals Vital Signs Date Time Temp Pulse Resp B/P Pulse Ox O2 Delivery O2 Flow Rate FiO2 12/13/16 11:51 98.8 60 18 162/73 98 12/13/16 11:05 30 12/13/16 06:04 Mechanical Ventilator Intake and Output 12/12/16 12/12/16 12/13/16 15:00 23:00 07:00 Intake Total 1005 ml 1075 ml Output Total 1200 ml 1150 ml Balance -195 ml -75 ml Exam Constitutional: alert, frail, oriented, other (trached and on vent ) Respiratory: diminished breath sounds (bilaterally ), other Cardiovascular: nl pulses, regular rate and rhythm Gastrointestinal: non-tender, other (Gtube in place and tolerating Tube feedings ), soft Musculoskeletal: other (muscle wasting ) Extremities: other (no edema, clubbing or cyanosis ) 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, lethargic, other (trached and on vent ) Results Result Diagram: 12/13/16 0540 12/12/16 0704 Results 24 hrs Laboratory Tests Test 12/13/16 05:40 White Blood Count 18.1 H Red Blood Count 2.98 L Hemoglobin 8.3 L Hematocrit 27.1 L Mean Corpuscular Volume 90.9 Mean Corpuscular Hemoglobin 27.9 L Mean Corpuscular Hemoglobin Concent 30.6 L Red Cell Distribution Width 15.9 H Platelet Count 254 Mean Platelet Volume 11.3 H Neutrophils % 84.7 H Lymphocytes % 6.7 L Monocytes % 4.7 Eosinophils % 2.6 Basophils % 0.3 Nucleated Red Blood Cells % 0.0 Neutrophils # 15.4 H Lymphocytes # 1.2 Monocytes # 0.9 Eosinophils # 0.5 Basophils # 0.1 Nucleated Red Blood Cells # 0.0 Phosphorus Level 3.0 Magnesium Level 2.3 Medications Medications Current Medications Acetaminophen (Tylenol Tab) 650 mg Q6H PRN PEG PAIN LEVEL 1-3 OR FEVER Last administered on 12/13/16 08:34; Admin Dose 650 MG; Start 11/30/16 at 05:00 Morphine Sulfate (morphine) 2 mg Q4H PRN IV PAIN LEVEL 7-10 Last administered on 12/13/16 05:57; Admin Dose 2 MG; Start 11/30/16 at 05:00 Miscellaneous Information 1 ea NOTE XX ; Start 11/30/16 at 05:00 Glucose (Glutose) 15 gm Q15M PRN PO DECREASED GLUCOSE; Start 11/30/16 at 05:00 Glucose (Glutose) 22.5 gm Q15M PRN PO DECREASED GLUCOSE; Start 11/30/16 at 05: 00 Dextrose (D50w Syringe) 25 ml Q15M PRN IV DECREASED GLUCOSE; Start 11/30/16 at 05:00 Dextrose (D50w Syringe) 50 ml Q15M PRN IV DECREASED GLUCOSE; Start 11/30/16 at 05:00 Glucagon (Glucagen) 1 mg Q15M PRN IM DECREASED GLUCOSE; Start 11/30/16 at 05:00 Glucose (Glutose) 15 gm Q15M PRN BUCCAL DECREASED GLUCOSE; Start 11/30/16 at 05 :00 Metoprolol Tartrate (Lopressor) 2.5 mg Q2H PRN IV heart rate over 110 Last administered on 12/10/16 06:12; Admin Dose 2.5 MG; Start 12/01/16 at 12:00 Collagenase (Santyl) 1 applic DAILY TOP Last administered on 12/13/16 08:35; Admin Dose 1 APPLIC; Start 12/02/16 at 12:00 Collagenase (Santyl) 1 applic DAILY PRN TOP PER WOUND CARE ORDERS; Start at 11:30 Mupirocin (Bactroban) 1 applic BID TOP Last administered on 12/13/16 08:35; Admin Dose 1 APPLIC; Start 12/02/16 at 21:00; Stop 12/16/16 at 20:59 Metoprolol Tartrate (Lopressor) 50 mg BID GTB Last administered on 12/13/16 08 :34; Admin Dose 50 MG; Start 12/04/16 at 21:00 Famotidine (Pepcid) 20 mg DAILY GTB Last administered on 12/13/16 08:34; Admin Dose 20 MG; Start 12/05/16 at 09:00 Losartan Potassium (Cozaar) 25 mg BID PO Last administered on 12/13/16 08:34; Admin Dose 25 MG; Start 12/05/16 at 21:00 Hydralazine HCl 10 mg 10 mg Q6H PRN IV ELEVATED BLOOD PRESSURE Last administered on 12/13/16 05:22; Admin Dose 10 MG; Start 12/06/16 at 16:00 Vancomycin HCl 250 ml @ 125 mls/hr Q24H IVPB Last administered on 12/13/16 05 :07; Admin Dose 125 MLS/HR; Start 12/07/16 at 05:00 Ceftazidime/ Dextrose (Fortaz 2gm/50 ml (Pmx)) 50 ml @ 100 mls/hr Q8 IVPB Last administered on 12/13/16 05:57; Admin Dose 100 MLS/HR; Start 12/09/16 at 14:00 Metronidazole 250 mg 250 mg Q8 GTB Last administered on 12/13/16 05:22; Admin Dose 250 MG; Start 12/09/16 at 22:00 Sodium Chloride (NS) 1,000 ml @ 75 mls/hr [id number] IV Last administered on 12/13 08:40; Admin Dose 75 MLS/HR; Start 12/10/16 at 13:00 Amikacin Sulfate AMIKACIN PER PHARMACY NOTE XX ; Start 12/10/16 at 19:00 Amikacin Sulfate/ Sodium Chloride (Amikacin/NS) 150 ml @ 150 mls/hr Q36H IVPB Last administered on 12/12/16 10:45; Admin Dose 150 MLS/HR; Start 12/12/16 at 10:00 Miscellaneous Information (*Rx Drug Level Order Reminder*) VANCO TR LEVEL PRIOR... ONCE ONCE XX ; Start 12/14/16 at 04:00; Stop 12/14/16 at 04:01 Miscellaneous Information (*Rx Drug Level Order Reminder*) AMIKACIN TR LEVEL PRIOR... ONCE ONCE XX ; Start 12/13/16 at 21:00; Stop 12/13/16 at 21:01 Miscellaneous Information 1 ea NOTE XX ; Start 12/13/16 at 20:00; Stop 12/13/16 at 23:45 Procedures Procedures PROCEDURE: CT CHEST WITHOUT CONTRAST CLINICAL INDICATION: Pneumonia TECHNIQUE: Volumetrically acquired images of the thorax obtained without intravenous contrast were reformatted in the axial, coronal, and sagittal planes. CTDI = 3.4 mGy; DLP = 338 mGy-cm. One or more of the following dose reduction technique were used: Automatic exposure control, adjustment of the mA and/or kV according to patient size, and use of iterative reconstruction technique. COMPARISON: CT scan from 12/03/2016. FINDINGS: LOWER NECK AND CHEST WALL: Normal. AIRWAYS: Stable tracheostomy. The distal trachea and central airways are mildly narrowed. Diffuse bronchial wall thickening is seen. LUNGS: Interval worsening of diffuse bronchocentric consolidation, centrilobular ground-glass, and scattered nodules seen throughout both lungs. PLEURA: Trace left effusion is seen with associated atelectasis.. MEDIASTINUM: No mediastinal mass. LYMPH NODES: Several enlarged mediastinal lymph nodes are present. The following examples given in short axis diameter : Right lower paratracheal measuring 18 mm, right upper paratracheal measuring 12 mm. CARDIAC: The heart size is normal. No pericardial effusion or thickening. VASCULAR: The aorta and main pulmonary artery are normal in caliber. Aortic and coronary atherosclerotic calcifications are present. OSSEOUS: No suspicious osseous lesions. Scattered degenerative changes of the thoracic spine is visualized. Limited evaluation of the upper abdomen demonstrates a minimal amount of subdiaphragmatic fluid seen on the right, likely reactive in nature.. IMPRESSION: 1. Interval worsening of diffuse bronchocentric consolidation, centrilobular ground-glass, and scattered nodules throughout both lungs consistent with multifocal bronchiolitis/bronchopneumonia. Recommend continued follow-up to exclude tumor and underlying lymphangitic carcinomatosis. Enlarged mediastinal lymph nodes are likely reactive.. 2. 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 3. Trace right subdiaphragmatic fluid. 4. Trace left pleural effusion with associated atelectasis. RPTAT:PP .Jason Bundy MD, MD Date Time Electronically viewed and signed by .Jason Bundy MD, on 12/12/2016 14:26 CHARLETTE RUTHERFORD Dec 13, 2016 13:42
[2016-12-13 15:52] LABS: POTASSIUM 3.2 mmol/L (3.5-5.1)
[2016-12-13 15:54] LABS: CREATININE 0.45 mg/dl (0.61-1.24)
[2016-12-13 15:55] LABS: CALCIUM 9.7 mg/dl (8.4-10.2)
[2016-12-13] MEDS ORDERED: POTASSIUM CHLORIDE 20 MEQ POWDER FOR ORAL SOLN GTB ONE (18:00)
[2016-12-13] MEDS ORDERED: (Nursing Note) XX SCH (20:00)
[2016-12-13] MEDS: LEVALBUTEROL (HFA) 15 GM INHALER INH PRN (20:09)
[2016-12-13] MEDS: IPRATROPIUM (HFA) 12.9 GM INHALER INH PRN (20:09)
[2016-12-13] MEDS: SOD CHLORIDE 0.9% IVPB SCH (21:24)
[2016-12-13] MEDS: AMIKACIN IVPB SCH (21:24)
[2016-12-14] VITALS (24 sets, daily range): BP systolic 114–130; BP diastolic 55–62; PULSE 84–100; RESP 18–27
[2016-12-14] MEDS ORDERED: POTASSIUM CHLORIDE 20 MEQ POWDER FOR ORAL SOLN GTB ONE
[2016-12-14] MEDS: IPRATROPIUM (HFA) 12.9 GM INHALER INH SCH ×4 (00:27→23:49)
[2016-12-14] MEDS: LEVALBUTEROL (HFA) 15 GM INHALER INH SCH ×4 (00:27→23:49)
[2016-12-14 04:14] LABS: ADD SCAN DIFF NO
[2016-12-14 04:21] LABS: ABNORMAL IP MESSAGE 1; HEMATOCRIT 25.1 % (42.0-52.0); HEMOGLOBIN 7.7 g/dl (14.0-18.0); MEAN CORPUSCULAR HEMOGLOBIN 27.4 pg (29.0-33.0); MEAN CORPUSCULAR HGB CONC 30.7 g/dl (32.0-37.0); MEAN CORPUSCULAR VOLUME 89.3 fl (82.0-101.0); MEAN PLATELET VOLUME 10.8 fl (7.4-10.4); PLATELET COUNT 249 10^3/UL (140-415); RED BLOOD COUNT 2.81 10^6/ul (4.70-6.10); RED CELL DISTRIBUTION WIDTH 15.9 % (11.5-14.5); WHITE BLOOD COUNT 22.9 10^3/ul (4.8-10.8)
[2016-12-14 04:29] LABS: POTASSIUM 4.1 mmol/L (3.5-5.1)
[2016-12-14 04:31] LABS: CREATININE 0.51 mg/dl (0.61-1.24); MAGNESIUM 2.1 mg/dl (1.7-2.5)
[2016-12-14 04:32] LABS: CALCIUM 9.8 mg/dl (8.4-10.2)
[2016-12-14] MEDS: VANCOMYCIN 1 GM in NS 250 ML IVPB SCH (04:53)
[2016-12-14] MEDS: metroNIDAZOLE 250 MG TAB GTB SCH ×3 (05:23→21:49)
[2016-12-14] MEDS: CEFTAZIDIME 2GM/50 ML (PMX) 50 ML IVPB SCH ×3 (05:24→21:49)
--- NOTE | 2016-12-14 09:12 | PN ---
Date/Time of Note Date/Time of Note DATE: 12/14/16 TIME: 09:07 Assessment/Plan VTE Prophylaxis VTE Prophylaxis Intervention: SCD's VTE Contraindication Reason: bleeding Lines/Catheters IV Catheter Type (from Nrsg): PICC Line Central line still needed: Yes Urinary Cath still in place: Yes Reason Cath still needed: skin wounds contaminated by urine Assessment/Plan Assessment/Plan 81 yo man with: 1. Sepsis, Bilateral Pneumonia, likely HCAP, CT chest with severe bilateral PNA and CT neck with OA. Polymicrobial and MDR organisms Amikacin added two days ago and Leukocytosis initially better, but now worsening with WBC at 22K today. On Vancomycin, Amikacin and Fortaz Repeat Blood cx from PICC and periph, UA/Ucx negative. C diff pending but no diarrhea and has been on Flagyl empirically . On IVF currently at gentle rate. Appreciate ID recs. 2. Chronic vent-dependent respiratory failure, stable on Vent, oxygenating well. Per family has been able to have some puree at subacute facility while on the vent? Continue Vancomycin, Ceftazidime and Amikacin. Appreciate Pulmonary recommendations, Repeat CT chest (12/12) showing ongoing bilateral PNA. 3. Hypokalemia/Hypomagnesemia: BMP pending, replete K prn, Mag Ok today 4. Severe anemia on admission, possible GI bleeding, but if so resolved now. Continue PPI. Hb decreasing. Will transfuse one unit PRBC. No evidence for active bleeding for now. Back on Iron supplement. 5. Elevated troponins in setting of a fib with RVR and sepsis, CAD HR controlled with Bblocker, up to 50 mg po bid. Appreciate Cardiology recommendations. No anticoag due to Anemia 6. MRSA nares: Bactroban, on Vancomycin already 7. Sacral Decub, seems to be healing well per RN and wound care but cx polymicrobial with MDRO. Abx adjusted by ID and on wound care protocol. 8. Hypertension: Continue Metoprolol at 50 mg po bid and Losartan as long as BP tolerating. Prophylaxis: Continue SCDs and Famotidine Disposition: On contact isolation and Telemetry. Continue current care. Seems to be improving some x3 days but mental status varies, and today WBC increased and hgb decreased. Plan for d/c back to SNF early next week if stable. I agree with other MDs that prognosis remains poor to fair at best. Patient is DNR Subjective 24 Hr Interval Summary Free Text/Dictation Resting comfortably. No events overnight. Subjective hx not possible: pt non-verbal, other (tracheostomy) Exam/Review of Systems Vital Signs Vitals Vital Signs Date Time Temp Pulse Resp B/P Pulse Ox O2 Delivery O2 Flow Rate FiO2 12/14/16 08:45 94 19 100 50 12/14/16 07:41 99.4 114/55 12/13/16 06:04 Mechanical Ventilator Intake and Output 12/13/16 12/13/16 12/14/16 15:00 23:00 07:00 Intake Total 1120 ml 900 ml Output Total 1500 ml Balance -380 ml 900 ml Exam Constitutional: non-verbal Head: normocephalic Eyes: nl conjunctiva ENMT: nl external ears & nose Neck: supple Respiratory: normal air movement Cardiovascular: regular rate and rhythm Gastrointestinal: soft Extremities: normal pulses Results Result Diagram: 12/14/16 0405 12/14/16 0405 Results 24 hrs Laboratory Tests Test 12/13/16 14:55 12/14/16 04:05 Sodium Level 138 139 Potassium Level 3.2 L 4.1 Chloride Level 101 104 Carbon Dioxide Level 29 29 Anion Gap 11 10 Blood Urea Nitrogen 29 H 28 H Creatinine 0.45 L 0.51 L Glucose Level 106 100 Calcium Level 9.7 9.8 White Blood Count 22.9 #H Red Blood Count 2.81 L Hemoglobin 7.7 L Hematocrit 25.1 L Mean Corpuscular Volume 89.3 Mean Corpuscular Hemoglobin 27.4 L Mean Corpuscular Hemoglobin Concent 30.7 L Red Cell Distribution Width 15.9 H Platelet Count 249 Mean Platelet Volume 10.8 H Neutrophils % Lymphocytes % Monocytes % Neutrophils # Lymphocytes # Monocytes # Phosphorus Level 3.0 Magnesium Level 2.1 Vancomycin Level Trough 14.1 Medications Medications Current Medications Acetaminophen (Tylenol Tab) 650 mg Q6H PRN PEG PAIN LEVEL 1-3 OR FEVER Last administered on 12/13/16 08:34; Admin Dose 650 MG; Start 11/30/16 at 05:00 Morphine Sulfate (morphine) 2 mg Q4H PRN IV PAIN LEVEL 7-10 Last administered on 12/13/16 05:57; Admin Dose 2 MG; Start 11/30/16 at 05:00 Miscellaneous Information 1 ea NOTE XX ; Start 11/30/16 at 05:00 Glucose (Glutose) 15 gm Q15M PRN PO DECREASED GLUCOSE; Start 11/30/16 at 05:00 Glucose (Glutose) 22.5 gm Q15M PRN PO DECREASED GLUCOSE; Start 11/30/16 at 05: 00 Dextrose (D50w Syringe) 25 ml Q15M PRN IV DECREASED GLUCOSE; Start 11/30/16 at 05:00 Dextrose (D50w Syringe) 50 ml Q15M PRN IV DECREASED GLUCOSE; Start 11/30/16 at 05:00 Glucagon (Glucagen) 1 mg Q15M PRN IM DECREASED GLUCOSE; Start 11/30/16 at 05:00 Glucose (Glutose) 15 gm Q15M PRN BUCCAL DECREASED GLUCOSE; Start 11/30/16 at 05 :00 Metoprolol Tartrate (Lopressor) 2.5 mg Q2H PRN IV heart rate over 110 Last administered on 12/10/16 06:12; Admin Dose 2.5 MG; Start 12/01/16 at 12:00 Collagenase (Santyl) 1 applic DAILY TOP Last administered on 12/13/16 08:35; Admin Dose 1 APPLIC; Start 12/02/16 at 12:00 Collagenase (Santyl) 1 applic DAILY PRN TOP PER WOUND CARE ORDERS; Start at 11:30 Mupirocin (Bactroban) 1 applic BID TOP Last administered on 12/13/16 20:33; Admin Dose 1 APPLIC; Start 12/02/16 at 21:00; Stop 12/16/16 at 20:59 Metoprolol Tartrate (Lopressor) 50 mg BID GTB Last administered on 12/13/16 20 :33; Admin Dose 50 MG; Start 12/04/16 at 21:00 Famotidine (Pepcid) 20 mg DAILY GTB Last administered on 12/13/16 08:34; Admin Dose 20 MG; Start 12/05/16 at 09:00 Losartan Potassium (Cozaar) 25 mg BID PO Last administered on 12/13/16 20:32; Admin Dose 25 MG; Start 12/05/16 at 21:00 Hydralazine HCl 10 mg 10 mg Q6H PRN IV ELEVATED BLOOD PRESSURE Last administered on 12/13/16 18:26; Admin Dose 10 MG; Start 12/06/16 at 16:00 Vancomycin HCl 250 ml @ 125 mls/hr Q24H IVPB Last administered on 12/14/16 04 :53; Admin Dose 125 MLS/HR; Start 12/07/16 at 05:00 Ceftazidime/ Dextrose (Fortaz 2gm/50 ml (Pmx)) 50 ml @ 100 mls/hr Q8 IVPB Last administered on 12/14/16 05:24; Admin Dose 100 MLS/HR; Start 12/09/16 at 14:00 Metronidazole 250 mg 250 mg Q8 GTB Last administered on 12/14/16 05:23; Admin Dose 250 MG; Start 12/09/16 at 22:00 Sodium Chloride (NS) 1,000 ml @ 75 mls/hr [id number] IV Last administered on 12/13 08:40; Admin Dose 75 MLS/HR; Start 12/10/16 at 13:00 Amikacin Sulfate AMIKACIN PER PHARMACY NOTE XX ; Start 12/10/16 at 19:00 Amikacin Sulfate/ Sodium Chloride (Amikacin/NS) 150 ml @ 150 mls/hr Q36H IVPB Last administered on 12/13/16 21:24; Admin Dose 150 MLS/HR; Start 12/12/16 at 10:00 RACHNA MEDRANO MD Dec 14, 2016 09:12
[2016-12-14 10:03] LABS: EOSINOPHILS # 0.2 10^3/ul (0.0-0.5); LYMPHOCYTES # 0.7 10^3/ul (0.8-2.9); MONOCYTE # 0.9 10^3/ul (0.3-0.9); NEUTROPHIL # 20.4 10^3/ul (1.6-7.5)
[2016-12-14 10:04] LABS: PLATELET ESTIMATE PLT APPEAR ADEQUATE
[2016-12-14] MEDS: FAMOTIDINE 20 MG TAB GTB SCH (10:10)
[2016-12-14] MEDS: LOSARTAN 25 MG TAB PO SCH ×2 (10:10→21:49)
[2016-12-14] MEDS: METOPROLOL 25 MG TAB GTB SCH ×2 (10:10→21:49)
[2016-12-14] MEDS: MUPIROCIN 2% 22 GM OINT TOP SCH ×2 (10:11→21:50)
[2016-12-14] MEDS: COLLAGENASE 30 GM TUBE TOP SCH (10:11)
[2016-12-14] MEDS: SOD CHLORIDE 0.9% 1,000 ML IV SCH ×2 (10:12→23:40)
--- NOTE | 2016-12-14 12:12 | CONS ---
Date/Time of Note Date/Time of Note DATE: 12/14/16 TIME: 12:10 Assessment/Plan Assessment/Plan Additional Assessment/Plan Ventilator settings; AC of 18, tidal volume 550, PEEP of 5, 50% FiO2. Assessment recommendations; 1. Patient admitted for severe right-sided pneumonia likely due to aspiration with significant persistent leukocytosis. 2. Chronic respiratory failure due to quadriplegia. 3. History of hypertension. 4. Anemia. Continue current treatment. Transfuse 1 unit packed RBC. Consultation Date/Type/Reason Admit Date/Time Nov 30, 2016 at 04:54 Initial Consult Date 12/01/16 Type of Consultation: Pulmonary Referring Provider: CHARLETTE RUTHERFORD 24 HR Interval Summary Free Text/Dictation Patient condition remains stable. Remains ventilator dependent. Has remained hemodynamically stable. General exam; elderly male, on ventilator via tracheostomy awake and alert. Currently in no distress. Exam/Review of Systems Vital Signs Vitals Vital Signs Date Time Temp Pulse Resp B/P Pulse Ox O2 Delivery O2 Flow Rate FiO2 12/14/16 11:30 95 20 100 50 12/14/16 07:41 99.4 114/55 12/13/16 06:04 Mechanical Ventilator Intake and Output 12/13/16 12/13/16 12/14/16 15:00 23:00 07:00 Intake Total 1120 ml 900 ml Output Total 1500 ml Balance -380 ml 900 ml Exam HEENT exam is; supple neck, no JVD. No lymphadenopathy. Midline trachea. No thyromegaly. Patient is edentulous. Tracheostomy in place with clean insertion site. Chest examination; scattered crackles involving right lung, left lung is clear. S1-S2 audible, no murmurs. Regular rhythm. Abdomen examination; soft, G-tube in place. No organomegaly. Bowel sounds audible. Extremity examination; no peripheral edema. CLIENT SERVICE COORDINATOR examination; patient has stable quadriplegia. Results Result Diagram: 12/14/16 0405 12/14/16 0405 Results 24 hrs Laboratory Tests Test 12/13/16 14:55 12/14/16 04:05 Sodium Level 138 139 Potassium Level 3.2 L 4.1 Chloride Level 101 104 Carbon Dioxide Level 29 29 Anion Gap 11 10 Blood Urea Nitrogen 29 H 28 H Creatinine 0.45 L 0.51 L Glucose Level 106 100 Calcium Level 9.7 9.8 White Blood Count 22.9 #H Red Blood Count 2.81 L Hemoglobin 7.7 L Hematocrit 25.1 L Mean Corpuscular Volume 89.3 Mean Corpuscular Hemoglobin 27.4 L Mean Corpuscular Hemoglobin Concent 30.7 L Red Cell Distribution Width 15.9 H Platelet Count 249 Mean Platelet Volume 10.8 H Neutrophils % 89.0 H Band Neutrophils % 2.0 Lymphocytes % 3.0 L Monocytes % 4.0 Eosinophils % 1.0 Metamyelocytes % 1.0 H Neutrophils # 20.4 H Lymphocytes # 0.7 L Monocytes # 0.9 Eosinophils # 0.2 Metamyelocytes # 0.2 Platelet Estimate PLT APPEAR ADEQUATE Phosphorus Level 3.0 Magnesium Level 2.1 Vancomycin Level Trough 14.1 Medications Medications Current Medications Acetaminophen (Tylenol Tab) 650 mg Q6H PRN PEG PAIN LEVEL 1-3 OR FEVER Last administered on 12/13/16 08:34; Admin Dose 650 MG; Start 11/30/16 at 05:00 Morphine Sulfate (morphine) 2 mg Q4H PRN IV PAIN LEVEL 7-10 Last administered on 12/13/16 05:57; Admin Dose 2 MG; Start 11/30/16 at 05:00 Miscellaneous Information 1 ea NOTE XX ; Start 11/30/16 at 05:00 Glucose (Glutose) 15 gm Q15M PRN PO DECREASED GLUCOSE; Start 11/30/16 at 05:00 Glucose (Glutose) 22.5 gm Q15M PRN PO DECREASED GLUCOSE; Start 11/30/16 at 05: 00 Dextrose (D50w Syringe) 25 ml Q15M PRN IV DECREASED GLUCOSE; Start 11/30/16 at 05:00 Dextrose (D50w Syringe) 50 ml Q15M PRN IV DECREASED GLUCOSE; Start 11/30/16 at 05:00 Glucagon (Glucagen) 1 mg Q15M PRN IM DECREASED GLUCOSE; Start 11/30/16 at 05:00 Glucose (Glutose) 15 gm Q15M PRN BUCCAL DECREASED GLUCOSE; Start 11/30/16 at 05 :00 Metoprolol Tartrate (Lopressor) 2.5 mg Q2H PRN IV heart rate over 110 Last administered on 12/10/16 06:12; Admin Dose 2.5 MG; Start 12/01/16 at 12:00 Collagenase (Santyl) 1 applic DAILY TOP Last administered on 12/14/16 10:11; Admin Dose 1 APPLIC; Start 12/02/16 at 12:00 Collagenase (Santyl) 1 applic DAILY PRN TOP PER WOUND CARE ORDERS; Start at 11:30 Mupirocin (Bactroban) 1 applic BID TOP Last administered on 12/14/16 10:11; Admin Dose 1 APPLIC; Start 12/02/16 at 21:00; Stop 12/16/16 at 20:59 Metoprolol Tartrate (Lopressor) 50 mg BID GTB Last administered on 12/14/16 10 :10; Admin Dose 50 MG; Start 12/04/16 at 21:00 Famotidine (Pepcid) 20 mg DAILY GTB Last administered on 12/14/16 10:10; Admin Dose 20 MG; Start 12/05/16 at 09:00 Losartan Potassium (Cozaar) 25 mg BID PO Last administered on 12/14/16 10:10; Admin Dose 25 MG; Start 12/05/16 at 21:00 Hydralazine HCl 10 mg 10 mg Q6H PRN IV ELEVATED BLOOD PRESSURE Last administered on 12/13/16 18:26; Admin Dose 10 MG; Start 12/06/16 at 16:00 Vancomycin HCl 250 ml @ 125 mls/hr Q24H IVPB Last administered on 12/14/16 04 :53; Admin Dose 125 MLS/HR; Start 12/07/16 at 05:00 Ceftazidime/ Dextrose (Fortaz 2gm/50 ml (Pmx)) 50 ml @ 100 mls/hr Q8 IVPB Last administered on 12/14/16 05:24; Admin Dose 100 MLS/HR; Start 12/09/16 at 14:00 Metronidazole 250 mg 250 mg Q8 GTB Last administered on 12/14/16 05:23; Admin Dose 250 MG; Start 12/09/16 at 22:00 Sodium Chloride (NS) 1,000 ml @ 75 mls/hr [id number] IV Last administered on 12/14 10:12; Admin Dose 75 MLS/HR; Start 12/10/16 at 13:00 Amikacin Sulfate AMIKACIN PER PHARMACY NOTE XX ; Start 12/10/16 at 19:00 Amikacin Sulfate/ Sodium Chloride (Amikacin/NS) 150 ml @ 150 mls/hr Q36H IVPB Last administered on 12/13/16t 21:24; Admin Dose 150 MLS/HR; Start 12/12/16 at 10:00 MARIA ELENA COLLADO Dec 14, 2016 12:12
[2016-12-14] MEDS ORDERED: DIPHENHYDRAMINE 50 MG INJ IV ONE (16:30)
[2016-12-14] MEDS ORDERED: ACETAMINOPHEN 650MG/20.3ML CUP NGT ONE ×2 (16:30→16:45)
[2016-12-14] MEDS ORDERED: DIPHENHYDRAMINE 50 MG INJ IV SCH (16:30)
--- NOTE | 2016-12-14 16:55 | CONS ---
Date/Time of Note Date/Time of Note DATE: 12/14/16 TIME: 16:46 Assessment/Plan Assessment/Plan Chief Complaint/Hosp Course ID PROGRESS NOTE TOTAL ABX DAY # 14 => Vanco IV + FORTAZ #5 + Flagyl GT #5 + Amikacin #5 Primaxin -> DC 12/09 24H INTERVAL SUMMARY * Increased work of breathing over past 48H -- He had been improving TU & FRI after Fortaz started for PSAR, now with increased pulmonary fluid, congestion. * CT thoraz 12/12: IMPRESSION: * 1. Interval worsening of diffuse bronchocentric consolidation, centrilobular ground-glass, and scattered nodules throughout both lungs consistent with multifocal bronchiolitis/bronchopneumonia. Recommend continued follow-up to exclude tumor and underlying lymphangitic carcinomatosis. Enlarged mediastinal lymph nodes are likely reactive.. * 2. 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 * 3. Trace right subdiaphragmatic fluid. * 4. Trace left pleural effusion with associated atelectasis. PHYSICAL EXAMINATION: GENERAL: Frail 81 yo elder M w/chronic debility on the Vent, VSS, NAD HEENT: Facial seborrheic dermatitis , missing teeth NECK: Supple, trach->clean stoma and secure to Vent CHEST: Equal chest rise bilaterally, (+)Dyspnea on the vent HEART: Pulse RRR ABDOMEN: Soft, benign., peg EXTREMITIES: Warm, dry, muscle atrophy, missing finger digits SKIN: Warm, dry ID ASSESSMENT: 81 yo M w/PMHx CVA w/right hemiplegia, dementia, dysphagia-PEG, VDRF, admitted with: 1. Systemic inflammatory response syndrome with low grade temperatures, leukocytosis * WBC rising w/low grade temps 2. Healthcare-associated pneumonia: * CT Thorax: Severe dense confluent multifocal consolidation scattered throughout the lungs consistent with widespread diffuse pneumonia. * Sputum (+)PSAR = MDRO sensitive to Fortaz + GNR #2 = pending 3. Right pleural effusion. 4. 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 GERD ?Gastroparesis? 7. BPH w/suspected urinary retention - indwelling FC 8. CKD 9. 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 QUERY: ?Early UTI w/trace leuk esterase, pyuria on UA 12/06/16 11. Facial seborrheic dermatitis => Will Rx Ketoconazole shampoo 12. LUEXT PICC = present on admission INVASIVES: * Trach, Peg, FC, PICC->11/30/17 ABX ALLERGIES: KNDA TOTAL ABX DAY # 13 => Vanco IV + FORTAZ #4 + Flagyl GT #4 + Amikacin #3 Primaxin -> DC 12/09 s/p Zosyn in ED ID RECOMMENDATIONS: 1. CONTINUE CURRENT ABX: * Vanco IV (MRSA) * Fortaz (PSAR) * Flagyl (anaerobic empiric) coverage * Amikacin (ESBL) 2. Facial seborrheic dermatitis => Will Rx Ketoconazole shampoo 3. Sacral decub looks clean -- (+)Polymicrobial MDRO on wound cx 4. Patient has improved although he remains frail, cachectic, chronic debility, chronic recurrent sepsis will continue * -> He is now a host for breeding multiple anti-biotic resistant bacterial pathogens. Doubt ABX therapy will reverse prognosis, rather will lead to further development of MDRO while prolonging the end-of-life stage. Furthermore , he is now at risk for renal failure with addition of aminoglycoside to vancomycin for ESLB + MRSA coverage. Promote ethic futility vs autonomy. . . . . Problems: Consultation Date/Type/Reason Admit Date/Time Nov 30, 2016 at 04:54 Initial Consult Date 12/01/16 Type of Consultation: ID Referring Provider: CHARLETTE RUTHERFORD Exam/Review of Systems Vital Signs Vitals Vital Signs Date Time Temp Pulse Resp B/P Pulse Ox O2 Delivery O2 Flow Rate FiO2 12/14/16 16:21 96 12/14/16 15:46 99.5 18 129/59 98 12/14/16 15:42 50 12/13/16 06:04 Mechanical Ventilator Intake and Output 12/13/16 12/13/16 12/14/16 15:00 23:00 07:00 Intake Total 1120 ml 900 ml Output Total 1500 ml Balance -380 ml 900 ml Results Result Diagram: 12/14/16 0405 12/14/16404 Results 24 hrs Laboratory Tests Test 12/14/16 04:05 White Blood Count 22.9 #H Red Blood Count 2.81 L Hemoglobin 7.7 L Hematocrit 25.1 L Mean Corpuscular Volume 89.3 Mean Corpuscular Hemoglobin 27.4 L Mean Corpuscular Hemoglobin Concent 30.7 L Red Cell Distribution Width 15.9 H Platelet Count 249 Mean Platelet Volume 10.8 H Neutrophils % 89.0 H Band Neutrophils % 2.0 Lymphocytes % 3.0 L Monocytes % 4.0 Eosinophils % 1.0 Metamyelocytes % 1.0 H Neutrophils # 20.4 H Lymphocytes # 0.7 L Monocytes # 0.9 Eosinophils # 0.2 Metamyelocytes # 0.2 Platelet Estimate PLT APPEAR ADEQUATE Sodium Level 139 Potassium Level 4.1 Chloride Level 104 Carbon Dioxide Level 29 Anion Gap 10 Blood Urea Nitrogen 28 H Creatinine 0.51 L Glucose Level 100 Calcium Level 9.8 Phosphorus Level 3.0 Magnesium Level 2.1 Vancomycin Level Trough 14.1 Medications Medications Current Medications Acetaminophen (Tylenol Tab) 650 mg Q6H PRN PEG PAIN LEVEL 1-3 OR FEVER Last administered on 12/13/16 08:34; Admin Dose 650 MG; Start 11/30/16 at 05:00 Morphine Sulfate (morphine) 2 mg Q4H PRN IV PAIN LEVEL 7-10 Last administered on 12/13/16 05:57; Admin Dose 2 MG; Start 11/30/16 at 05:00 Miscellaneous Information 1 ea NOTE XX ; Start 11/30/16 at 05:00 Glucose (Glutose) 15 gm Q15M PRN PO DECREASED GLUCOSE; Start 11/30/16 at 05:00 Glucose (Glutose) 22.5 gm Q15M PRN PO DECREASED GLUCOSE; Start 11/30/16 at 05: 00 Dextrose (D50w Syringe) 25 ml Q15M PRN IV DECREASED GLUCOSE; Start 11/30/16 at 05:00 Dextrose (D50w Syringe) 50 ml Q15M PRN IV DECREASED GLUCOSE; Start 11/30/16 at 05:00 Glucagon (Glucagen) 1 mg Q15M PRN IM DECREASED GLUCOSE; Start 11/30/16 at 05:00 Glucose (Glutose) 15 gm Q15M PRN BUCCAL DECREASED GLUCOSE; Start 11/30/16 at 05 :00 Metoprolol Tartrate (Lopressor) 2.5 mg Q2H PRN IV heart rate over 110 Last administered on 12/10/16 06:12; Admin Dose 2.5 MG; Start 12/01/16 at 12:00 Collagenase (Santyl) 1 applic DAILY TOP Last administered on 12/14/16 10:11; Admin Dose 1 APPLIC; Start 12/02/16 at 12:00 Collagenase (Santyl) 1 applic DAILY PRN TOP PER WOUND CARE ORDERS; Start at 11:30 Mupirocin (Bactroban) 1 applic BID TOP Last administered on 12/14/16 10:11; Admin Dose 1 APPLIC; Start 12/02/16 at 21:00; Stop 12/16/16 at 20:59 Metoprolol Tartrate (Lopressor) 50 mg BID GTB Last administered on 12/14/16 10 :10; Admin Dose 50 MG; Start 12/04/16 at 21:00 Famotidine (Pepcid) 20 mg DAILY GTB Last administered on 12/14/16 10:10; Admin Dose 20 MG; Start 12/05/16 at 09:00 Losartan Potassium (Cozaar) 25 mg BID PO Last administered on 12/14/16 10:10; Admin Dose 25 MG; Start 12/05/16 at 21:00 Hydralazine HCl 10 mg 10 mg Q6H PRN IV ELEVATED BLOOD PRESSURE Last administered on 12/13/16 18:26; Admin Dose 10 MG; Start 12/06/16 at 16:00 Vancomycin HCl 250 ml @ 125 mls/hr Q24H IVPB Last administered on 12/14/16 04 :53; Admin Dose 125 MLS/HR; Start 12/07/16 at 05:00 Ceftazidime/ Dextrose (Fortaz 2gm/50 ml (Pmx)) 50 ml @ 100 mls/hr Q8 IVPB Last administered on 12/14/16 14:06; Admin Dose 100 MLS/HR; Start 12/09/16 at 14:00 Metronidazole 250 mg 250 mg Q8 GTB Last administered on 12/14/16 14:06; Admin Dose 250 MG; Start 12/09/16 at 22:00 Sodium Chloride (NS) 1,000 ml @ 75 mls/hr [id number] IV Last administered on 12/14 10:12; Admin Dose 75 MLS/HR; Start 12/10/16 at 13:00 Amikacin Sulfate AMIKACIN PER PHARMACY NOTE XX ; Start 12/10/16 at 19:00 Amikacin Sulfate/ Sodium Chloride (Amikacin/NS) 150 ml @ 150 mls/hr Q48H IVPB ; Start 12/15/16 at 22:00 Diphenhydramine HCl (Benadryl) 25 mg ONCE IV Last administered on 12/14/16 16: 37; Admin Dose 25 MG; Start 12/14/16 at 16:30; Stop 12/14/16 at 18:00 Acetaminophen (Tylenol Liquid) 1,000 mg ONCE ONCE NGT ; Start 12/14/16 at 16:45 ; Stop 12/14/16 at 16:46 OSEI BLACKWOOD NP Dec 14, 2016 16:55
[2016-12-14] MEDS: KETOCONAZOLE 2% SHAMPOO 120 ML BTL TOP SCH (21:50)
[2016-12-14] MEDS: KETOCONAZOLE 2% 15 GM CR TOP SCH (21:50)
[2016-12-15] VITALS (25 sets, daily range): BP systolic 130–170; BP diastolic 63–76; PULSE 85–106; RESP 17–25
[2016-12-15] MEDS: VANCOMYCIN 1 GM in NS 250 ML IVPB SCH (04:41)
[2016-12-15] MEDS: metroNIDAZOLE 250 MG TAB GTB SCH ×3 (05:59→21:30)
[2016-12-15] MEDS: SOD CHLORIDE 0.9% 1,000 ML IV SCH ×3 (06:02→21:32)
[2016-12-15 06:46] LABS: ADD SCAN DIFF NO
[2016-12-15] MEDS: CEFTAZIDIME 2GM/50 ML (PMX) 50 ML IVPB SCH ×3 (06:50→21:32)
[2016-12-15 06:52] LABS: BASOPHIL # 0.1 10^3/ul (0.0-0.1); BASOPHILS % 0.3 % (0.0-2.0); EOSINOPHILS # 0.6 10^3/ul (0.0-0.5); EOSINOPHILS % 2.9 % (0.0-7.0); HEMATOCRIT 29.3 % (42.0-52.0); LYMPHOCYTES # 1.2 10^3/ul (0.8-2.9); MEAN CORPUSCULAR HEMOGLOBIN 27.5 pg (29.0-33.0); MEAN CORPUSCULAR HGB CONC 30.7 g/dl (32.0-37.0); MEAN CORPUSCULAR VOLUME 89.6 fl (82.0-101.0); MEAN PLATELET VOLUME 11.4 fl (7.4-10.4); MONOCYTE # 0.8 10^3/ul (0.3-0.9); NEUTROPHIL # 16.6 10^3/ul (1.6-7.5); NEUTROPHILS % 85.6 % (39.0-77.0); PLATELET COUNT 241 10^3/UL (140-415); RED BLOOD COUNT 3.27 10^6/ul (4.70-6.10); RED CELL DISTRIBUTION WIDTH 16.1 % (11.5-14.5); WHITE BLOOD COUNT 19.4 10^3/ul (4.8-10.8)
[2016-12-15 07:09] LABS: BILIRUBIN,INDIRECT 0.1 mg/dl (0-1.1); BILIRUBIN,TOTAL 0.1 mg/dl (0.2-1.3); CREATININE 0.52 mg/dl (0.61-1.24)
[2016-12-15 07:10] LABS: ALBUMIN/GLOBULIN RATIO 0.39; CALCIUM 9.7 mg/dl (8.4-10.2); TOTAL PROTEIN 7.1 g/dl (6.1-8.1)
[2016-12-15] MEDS: LEVALBUTEROL (HFA) 15 GM INHALER INH SCH ×2 (07:36→16:33)
[2016-12-15] MEDS: IPRATROPIUM (HFA) 12.9 GM INHALER INH SCH ×3 (07:36→23:13)
[2016-12-15] MEDS ORDERED: POTASSIUM CHLORIDE 20 MEQ POWDER FOR ORAL SOLN PEG SCH ×2 (08:00→14:00)
[2016-12-15] MEDS: KETOCONAZOLE 2% SHAMPOO 120 ML BTL TOP SCH ×2 (09:09→21:29)
[2016-12-15] MEDS: KETOCONAZOLE 2% 15 GM CR TOP SCH ×2 (09:09→21:30)
[2016-12-15] MEDS: FAMOTIDINE 20 MG TAB GTB SCH (09:10)
[2016-12-15] MEDS: LOSARTAN 25 MG TAB PO SCH ×2 (09:10→21:31)
[2016-12-15] MEDS: MUPIROCIN 2% 22 GM OINT TOP SCH ×2 (09:10→21:29)
[2016-12-15] MEDS: METOPROLOL 25 MG TAB GTB SCH ×2 (09:10→21:30)
[2016-12-15] MEDS: COLLAGENASE 30 GM TUBE TOP SCH (09:15)
--- NOTE | 2016-12-15 09:49 | PN ---
Date/Time of Note Date/Time of Note DATE: 12/15/16 TIME: 09:30 Assessment/Plan VTE Prophylaxis VTE Prophylaxis Intervention: SCD's VTE Contraindication Reason: anticoagulation not tolerated Lines/Catheters IV Catheter Type (from Nrsg): PICC Line Central line still needed: Yes Urinary Cath still in place: Yes Reason Cath still needed: skin wounds contaminated by urine Assessment/Plan Assessment/Plan 1. Sepsis, Bilateral Pneumonia, likely HCAP, CT chest with severe bilateral PNA and CT neck with OA. Polymicrobial and MDR organisms Amikacin added three days ago and will monitor reenal functin closely. Leukocytosis is improved from yesterday. On Vancomycin, Amikacin and Fortaz Repeat Blood cx from PICC and periph, UA/Ucx negative. C diff pending but no diarrhea and has been on Flagyl empirically . On IVF currently at gentle rate. Possible/early UTI. Appreciate ID recommendations on this complicated case. 2. Chronic vent-dependent respiratory failure, stable on Vent, oxygenating well. Per family has been able to have some puree at subacute facility while on the vent? Continue Vancomycin, Ceftazidime and Amikacin. Appreciate Pulmonary recommendations, Repeat CT chest (12/12) showing ongoing bilateral PNA. 3. Hypokalemia/Hypomagnesemia: Replete K prn, Mag 2 today 4. Severe anemia on admission, possible GI bleeding, but if so resolved now. Continue PPI. Hb decreasing. Hgb improved to 9 today after one unit PRBC. No evidence for active bleeding for now. Back on Iron supplement. 5. Elevated troponins in setting of a fib with RVR and sepsis, CAD HR controlled with Bblocker, up to 50 mg po bid. Appreciate Cardiology recommendations. No anticoag due to Anemia 6. MRSA nares: Bactroban, on Vancomycin already 7. Sacral Decub, seems to be healing well per RN and wound care but cx polymicrobial with MDRO. Abx adjusted by ID and on wound care protocol. 8. Hypertension: Continue Metoprolol at 50 mg po bid and Losartan as long as BP tolerating. Prophylaxis: Continue SCDs and Famotidine Disposition: On contact isolation and Telemetry. Continue current care. Seems to be improving some x3 days but mental status varies, and today WBC slightly decreased and hgb improved after one unit PRBC. I agree with other MDs that prognosis remains poor to fair at best. Patient is DNR Subjective 24 Hr Interval Summary Free Text/Dictation Resting. Appears to be comfortable. WBC slightly decreased. Exam/Review of Systems Vital Signs Vitals Vital Signs Date Time Temp Pulse Resp B/P Pulse Ox O2 Delivery O2 Flow Rate FiO2 12/15/16 08:47 103 12/15/16 07:43 98.3 20 157/76 97 12/15/16 07:36 50 12/13/16 06:04 Mechanical Ventilator Intake and Output 12/14/16 12/14/16 12/15/16 15:00 23:00 07:00 Intake Total 920 ml 50 ml 1660 ml Output Total 900 ml 850 ml Balance 20 ml 50 ml 810 ml Exam Constitutional: non-verbal Head: normocephalic Neck: supple Respiratory: crackles/rales, diminished breath sounds Cardiovascular: regular rate and rhythm Gastrointestinal: soft Results Result Diagram: 12/15/16 0559 12/15/16 0559 Results 24 hrs Laboratory Tests Test 12/15/16 05:59 White Blood Count 19.4 H Red Blood Count 3.27 L Hemoglobin 9.0 L Hematocrit 29.3 L Mean Corpuscular Volume 89.6 Mean Corpuscular Hemoglobin 27.5 L Mean Corpuscular Hemoglobin Concent 30.7 L Red Cell Distribution Width 16.1 H Platelet Count 241 Mean Platelet Volume 11.4 H Neutrophils % 85.6 H Lymphocytes % 6.0 L Monocytes % 4.0 Eosinophils % 2.9 Basophils % 0.3 Nucleated Red Blood Cells % 0.0 Neutrophils # 16.6 H Lymphocytes # 1.2 Monocytes # 0.8 Eosinophils # 0.6 H Basophils # 0.1 Nucleated Red Blood Cells # 0.0 Sodium Level 140 Potassium Level 3.0 L Chloride Level 103 Carbon Dioxide Level 28 Anion Gap 12 Blood Urea Nitrogen 29 H Creatinine 0.52 L Glucose Level 124 Calcium Level 9.7 Magnesium Level 2.0 Total Bilirubin 0.1 L Direct Bilirubin 0.00 Indirect Bilirubin 0.1 Aspartate Amino Transf (AST/SGOT) 26 Alanine Aminotransferase (ALT/SGPT) 24 Alkaline Phosphatase 185 H Total Protein 7.1 Albumin 2.0 L Globulin 5.10 H Albumin/Globulin Ratio 0.39 Medications Medications Current Medications Acetaminophen (Tylenol Tab) 650 mg Q6H PRN PEG PAIN LEVEL 1-3 OR FEVER Last administered on 12/13/16 08:34; Admin Dose 650 MG; Start 11/30/16 at 05:00 Morphine Sulfate (morphine) 2 mg Q4H PRN IV PAIN LEVEL 7-10 Last administered on 12/13/16 05:57; Admin Dose 2 MG; Start 11/30/16 at 05:00 Miscellaneous Information 1 ea NOTE XX ; Start 11/30/16 at 05:00 Glucose (Glutose) 15 gm Q15M PRN PO DECREASED GLUCOSE; Start 11/30/16 at 05:00 Glucose (Glutose) 22.5 gm Q15M PRN PO DECREASED GLUCOSE; Start 11/30/16 at 05: 00 Dextrose (D50w Syringe) 25 ml Q15M PRN IV DECREASED GLUCOSE; Start 11/30/16 at 05:00 Dextrose (D50w Syringe) 50 ml Q15M PRN IV DECREASED GLUCOSE; Start 11/30/16 at 05:00 Glucagon (Glucagen) 1 mg Q15M PRN IM DECREASED GLUCOSE; Start 11/30/16 at 05:00 Glucose (Glutose) 15 gm Q15M PRN BUCCAL DECREASED GLUCOSE; Start 11/30/16 at 05 :00 Metoprolol Tartrate (Lopressor) 2.5 mg Q2H PRN IV heart rate over 110 Last administered on 12/10/16 06:12; Admin Dose 2.5 MG; Start 12/01/16 at 12:00 Collagenase (Santyl) 1 applic DAILY TOP Last administered on 12/15/16 09:15; Admin Dose 1 APPLIC; Start 12/02/16 at 12:00 Collagenase (Santyl) 1 applic DAILY PRN TOP PER WOUND CARE ORDERS; Start at 11:30 Mupirocin (Bactroban) 1 applic BID TOP Last administered on 12/15/16 09:10; Admin Dose 1 APPLIC; Start 12/02/16 at 21:00; Stop 12/16/16 at 20:59 Metoprolol Tartrate (Lopressor) 50 mg BID GTB Last administered on 12/15/16 09 :10; Admin Dose 50 MG; Start 12/04/16 at 21:00 Famotidine (Pepcid) 20 mg DAILY GTB Last administered on 12/15/16 09:10; Admin Dose 20 MG; Start 12/05/16 at 09:00 Losartan Potassium (Cozaar) 25 mg BID PO Last administered on 12/15/16 09:10; Admin Dose 25 MG; Start 12/05/16 at 21:00 Hydralazine HCl 10 mg 10 mg Q6H PRN IV ELEVATED BLOOD PRESSURE Last administered on 12/13/16 18:26; Admin Dose 10 MG; Start 12/06/16 at 16:00 Vancomycin HCl 250 ml @ 125 mls/hr Q24H IVPB Last administered on 12/15/16 04 :41; Admin Dose 125 MLS/HR; Start 12/07/16 at 05:00 Ceftazidime/ Dextrose (Fortaz 2gm/50 ml (Pmx)) 50 ml @ 100 mls/hr Q8 IVPB Last administered on 12/15/16 06:50; Admin Dose 100 MLS/HR; Start 12/09/16 at 14:00 Metronidazole 250 mg 250 mg Q8 GTB Last administered on 12/15/16 05:59; Admin Dose 250 MG; Start 12/09/16 at 22:00 Sodium Chloride (NS) 1,000 ml @ 75 mls/hr [id number] IV Last administered on 12/15 06:02; Admin Dose 75 MLS/HR; Start 12/10/16 at 13:00 Amikacin Sulfate AMIKACIN PER PHARMACY NOTE XX ; Start 12/10/16 at 19:00 Amikacin Sulfate/ Sodium Chloride (Amikacin/NS) 150 ml @ 150 mls/hr Q48H IVPB ; Start 12/15/16 at 22:00 Ketoconazole (Nizoral Shampoo) 1 applic Q12 TOP Last administered on 12/15/16 09:09; Admin Dose 1 APPLIC; Start 12/14/16 at 21:00 Ketoconazole (Nizoral Cr) 1 applic BID TOP Last administered on 12/15/16 09:09 ; Admin Dose 1 APPLIC; Start 12/14/16 at 21:00 Potassium Chloride (Potassium Chloride Pwd/Soln) 40 meq ONCE PEG Last administered on 12/15/16 09:09; Admin Dose 40 MEQ; Start 12/15/16 at 08:00; Stop 12/15/16 at 10:00 Potassium Chloride (Potassium Chloride Pwd/Soln) 40 meq ONCE@14 PEG ; Start at 14:00; Stop 12/15/16 at 16:00 RACHNA MEDRANO MD Dec 15, 2016 09:45
--- NOTE | 2016-12-15 12:51 | CONS ---
Date/Time of Note Date/Time of Note DATE: 12/15/16 TIME: 12:49 Assessment/Plan Assessment/Plan Additional Assessment/Plan Ventilator settings; AC of 18, tidal volume 550, PEEP of 5, 50% FiO2. Assessment recommendations; 1. Patient admitted for severe right-sided pneumonia possibly from aspiration, currently on broad-spectrum antibiotic coverage. 2. Chronic respiratory failure due to quadriplegia. 3. History of hypertension. 5. Anemia. Continue current supportive care. Consultation Date/Type/Reason Admit Date/Time Nov 30, 2016 at 04:54 Initial Consult Date 12/01/16 Type of Consultation: Pulmonary/critical care Referring Provider: CHARLETTE RUTHERFORD 24 HR Interval Summary Free Text/Dictation Patient condition remains stable. Remains awake alert. Remains hemodynamically stable. General exam; elderly male, on ventilator via tracheostomy currently in no distress. Exam/Review of Systems Vital Signs Vitals Vital Signs Date Time Temp Pulse Resp B/P Pulse Ox O2 Delivery O2 Flow Rate FiO2 12/15/16 12:34 85 12/15/16 12:12 97.6 17 156/76 96 12/15/16 11:45 50 12/13/16 06:04 Mechanical Ventilator Intake and Output 12/14/16 12/14/16 12/15/16 15:00 23:00 07:00 Intake Total 920 ml 50 ml 1660 ml Output Total 900 ml 850 ml Balance 20 ml 50 ml 810 ml Exam HEENT examination; supple neck, no JVD. No lymphadenopathy. Midline trachea. No thyromegaly. Patient is edentulous. Tracheostomy in place with clean insertion site. Chest examination; diffuse crackles involving the right lung, left lung is clear to auscultation. S1-S2 audible, no murmurs. Regular rhythm. Abdomen examination; soft, non-distended. No organomegaly. G-tube in place. Bowel sounds audible. Extremity examination; no peripheral edema. AD COMPOSITOR examination; patient is awake alert has stable quadriplegia. Results Result Diagram: 12/15/16 0559 12/15/16 0559 Results 24 hrs Laboratory Tests Test 12/15/16 05:59 White Blood Count 19.4 H Red Blood Count 3.27 L Hemoglobin 9.0 L Hematocrit 29.3 L Mean Corpuscular Volume 89.6 Mean Corpuscular Hemoglobin 27.5 L Mean Corpuscular Hemoglobin Concent 30.7 L Red Cell Distribution Width 16.1 H Platelet Count 241 Mean Platelet Volume 11.4 H Neutrophils % 85.6 H Lymphocytes % 6.0 L Monocytes % 4.0 Eosinophils % 2.9 Basophils % 0.3 Nucleated Red Blood Cells % 0.0 Neutrophils # 16.6 H Lymphocytes # 1.2 Monocytes # 0.8 Eosinophils # 0.6 H Basophils # 0.1 Nucleated Red Blood Cells # 0.0 Sodium Level 140 Potassium Level 3.0 L Chloride Level 103 Carbon Dioxide Level 28 Anion Gap 12 Blood Urea Nitrogen 29 H Creatinine 0.52 L Glucose Level 124 Calcium Level 9.7 Magnesium Level 2.0 Total Bilirubin 0.1 L Direct Bilirubin 0.00 Indirect Bilirubin 0.1 Aspartate Amino Transf (AST/SGOT) 26 Alanine Aminotransferase (ALT/SGPT) 24 Alkaline Phosphatase 185 H Total Protein 7.1 Albumin 2.0 L Globulin 5.10 H Albumin/Globulin Ratio 0.39 Medications Medications Current Medications Acetaminophen (Tylenol Tab) 650 mg Q6H PRN PEG PAIN LEVEL 1-3 OR FEVER Last administered on 12/13/16 08:34; Admin Dose 650 MG; Start 11/30/16 at 05:00 Morphine Sulfate (morphine) 2 mg Q4H PRN IV PAIN LEVEL 7-10 Last administered on 12/13/16 05:57; Admin Dose 2 MG; Start 11/30/16 at 05:00 Miscellaneous Information 1 ea NOTE XX ; Start 11/30/16 at 05:00 Glucose (Glutose) 15 gm Q15M PRN PO DECREASED GLUCOSE; Start 11/30/16 at 05:00 Glucose (Glutose) 22.5 gm Q15M PRN PO DECREASED GLUCOSE; Start 11/30/16 at 05: 00 Dextrose (D50w Syringe) 25 ml Q15M PRN IV DECREASED GLUCOSE; Start 11/30/16 at 05:00 Dextrose (D50w Syringe) 50 ml Q15M PRN IV DECREASED GLUCOSE; Start 11/30/16 at 05:00 Glucagon (Glucagen) 1 mg Q15M PRN IM DECREASED GLUCOSE; Start 11/30/16 at 05:00 Glucose (Glutose) 15 gm Q15M PRN BUCCAL DECREASED GLUCOSE; Start 11/30/16 at 05 :00 Metoprolol Tartrate (Lopressor) 2.5 mg Q2H PRN IV heart rate over 110 Last administered on 12/10/16 06:12; Admin Dose 2.5 MG; Start 12/01/16 at 12:00 Collagenase (Santyl) 1 applic DAILY TOP Last administered on 12/15/16 09:15; Admin Dose 1 APPLIC; Start 12/02/16 at 12:00 Collagenase (Santyl) 1 applic DAILY PRN TOP PER WOUND CARE ORDERS; Start at 11:30 Mupirocin (Bactroban) 1 applic BID TOP Last administered on 12/15/16 09:10; Admin Dose 1 APPLIC; Start 12/02/16 at 21:00; Stop 12/16/16 at 20:59 Metoprolol Tartrate (Lopressor) 50 mg BID GTB Last administered on 12/15/16 09 :10; Admin Dose 50 MG; Start 12/04/16 at 21:00 Famotidine (Pepcid) 20 mg DAILY GTB Last administered on 12/15/16 09:10; Admin Dose 20 MG; Start 12/05/16 at 09:00 Losartan Potassium (Cozaar) 25 mg BID PO Last administered on 12/15/16 09:10; Admin Dose 25 MG; Start 12/05/16 at 21:00 Hydralazine HCl 10 mg 10 mg Q6H PRN IV ELEVATED BLOOD PRESSURE Last administered on 12/13/16 18:26; Admin Dose 10 MG; Start 12/06/16 at 16:00 Vancomycin HCl 250 ml @ 125 mls/hr Q24H IVPB Last administered on 12/15/16 04 :41; Admin Dose 125 MLS/HR; Start 12/07/16 at 05:00 Ceftazidime/ Dextrose (Fortaz 2gm/50 ml (Pmx)) 50 ml @ 100 mls/hr Q8 IVPB Last administered on 12/15/16 06:50; Admin Dose 100 MLS/HR; Start 12/09/16 at 14:00 Metronidazole 250 mg 250 mg Q8 GTB Last administered on 12/15/16 05:59; Admin Dose 250 MG; Start 12/09/16 at 22:00 Sodium Chloride (NS) 1,000 ml @ 75 mls/hr [id number] IV Last administered on 12/15 06:02; Admin Dose 75 MLS/HR; Start 12/10/16 at 13:00 Amikacin Sulfate AMIKACIN PER PHARMACY NOTE XX ; Start 12/10/16 at 19:00 Amikacin Sulfate/ Sodium Chloride (Amikacin/NS) 150 ml @ 150 mls/hr Q48H IVPB ; Start 12/15/16 at 22:00 Ketoconazole (Nizoral Shampoo) 1 applic Q12 TOP Last administered on 12/15/16 09:09; Admin Dose 1 APPLIC; Start 12/14/16 at 21:00 Ketoconazole (Nizoral Cr) 1 applic BID TOP Last administered on 12/15/16 09:09 ; Admin Dose 1 APPLIC; Start 12/14/16 at 21:00 Potassium Chloride (Potassium Chloride Pwd/Soln) 40 meq ONCE@14 PEG ; Start at 14:00; Stop 12/15/16 at 16:00 MARIA ELENA COLLADO Dec 15, 2016 12:51
[2016-12-15] MEDS: ACETAMINOPHEN 325 MG TAB PEG PRN (18:21)
--- NOTE | 2016-12-15 19:20 | CONS ---
Date/Time of Note Date/Time of Note DATE: 12/15/16 TIME: 19:17 Assessment/Plan Assessment/Plan Chief Complaint/Hosp Course ID PROGRESS NOTE TOTAL ABX DAY # 15 => Vanco IV + FORTAZ #6 + Flagyl GT #6 + Amikacin #6 Primaxin -> DC 12/09 24H INTERVAL SUMMARY * Patient has intermittent good days alternating with increased respiratory distress on others. Today he is without respiratory distress and appears comfortable on the vent -- FRI and SAT he demonstrated Increased work of breathing over 48H -- Prior to this on FRI/ he had been improving TU he was in respiratory distress and Fortaz started for PSAR. * NO fever, WBC down today PHYSICAL EXAMINATION: GENERAL: Frail 81 yo elder M w/chronic debility on the Vent, VSS, NAD HEENT: Facial seborrheic dermatitis , missing teeth NECK: Supple, trach->clean stoma and secure to Vent CHEST: Equal chest rise bilaterally, (+)Dyspnea on the vent HEART: Pulse RRR ABDOMEN: Soft, benign., peg EXTREMITIES: Warm, dry, muscle atrophy, missing finger digits SKIN: Warm, dry ID ASSESSMENT: 81 yo M w/PMHx CVA w/right hemiplegia, dementia, dysphagia-PEG, VDRF, admitted with: 1. Systemic inflammatory response syndrome with low grade temperatures, leukocytosis * WBC rising w/low grade temps 2. Healthcare-associated pneumonia: * CT Thorax: Severe dense confluent multifocal consolidation scattered throughout the lungs consistent with widespread diffuse pneumonia. * Sputum (+)PSAR = MDRO sensitive to Fortaz + GNR #2 = pending 3. Right pleural effusion. 4. 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 GERD ?Gastroparesis? 7. BPH w/suspected urinary retention - indwelling FC 8. CKD 9. 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 QUERY: ?Early UTI w/trace leuk esterase, pyuria on UA 12/06/16 11. Facial seborrheic dermatitis => Will Rx Ketoconazole shampoo 12. LUEXT PICC = present on admission INVASIVES: * Trach, Peg, FC, PICC->11/30/17 ABX ALLERGIES: KNDA TOTAL ABX DAY # # 15 => Vanco IV + FORTAZ #6 + Flagyl GT #6 + Amikacin #6 Primaxin -> DC 12/09 s/p Zosyn in ED ID RECOMMENDATIONS: 1. CONTINUE CURRENT ABX: * Vanco IV (MRSA) * Fortaz (PSAR) * Flagyl (anaerobic empiric) coverage * Amikacin (ESBL) 2. Facial seborrheic dermatitis => Rx Ketoconazole shampoo followed by Ketoconazole topical Q12H 3. Sacral decub looks clean -- (+)Polymicrobial MDRO on wound cx . . . . Problems: Consultation Date/Type/Reason Admit Date/Time Nov 30, 2016 at 04:54 Initial Consult Date 12/01/16 Type of Consultation: ID Referring Provider: CHARLETTE RUTHERFORD Exam/Review of Systems Vital Signs Vitals Vital Signs Date Time Temp Pulse Resp B/P Pulse Ox O2 Delivery O2 Flow Rate FiO2 12/15/16 17:31 89 21 97 50 12/15/16 16:01 98.8 170/74 12/13/16 06:04 Mechanical Ventilator Intake and Output 12/14/16 12/14/16 12/15/16 15:00 23:00 07:00 Intake Total 920 ml 50 ml 1660 ml Output Total 900 ml 850 ml Balance 20 ml 50 ml 810 ml Results Result Diagram: 12/15/16 0559 12/15/16 0559 Results 24 hrs Laboratory Tests Test 12/15/16 05:59 White Blood Count 19.4 H Red Blood Count 3.27 L Hemoglobin 9.0 L Hematocrit 29.3 L Mean Corpuscular Volume 89.6 Mean Corpuscular Hemoglobin 27.5 L Mean Corpuscular Hemoglobin Concent 30.7 L Red Cell Distribution Width 16.1 H Platelet Count 241 Mean Platelet Volume 11.4 H Neutrophils % 85.6 H Lymphocytes % 6.0 L Monocytes % 4.0 Eosinophils % 2.9 Basophils % 0.3 Nucleated Red Blood Cells % 0.0 Neutrophils # 16.6 H Lymphocytes # 1.2 Monocytes # 0.8 Eosinophils # 0.6 H Basophils # 0.1 Nucleated Red Blood Cells # 0.0 Sodium Level 140 Potassium Level 3.0 L Chloride Level 103 Carbon Dioxide Level 28 Anion Gap 12 Blood Urea Nitrogen 29 H Creatinine 0.52 L Glucose Level 124 Calcium Level 9.7 Magnesium Level 2.0 Total Bilirubin 0.1 L Direct Bilirubin 0.00 Indirect Bilirubin 0.1 Aspartate Amino Transf (AST/SGOT) 26 Alanine Aminotransferase (ALT/SGPT) 24 Alkaline Phosphatase 185 H Total Protein 7.1 Albumin 2.0 L Globulin 5.10 H Albumin/Globulin Ratio 0.39 Medications Medications Current Medications Acetaminophen (Tylenol Tab) 650 mg Q6H PRN PEG PAIN LEVEL 1-3 OR FEVER Last administered on 12/15/16 18:21; Admin Dose 650 MG; Start 11/30/16 at 05:00 Morphine Sulfate (morphine) 2 mg Q4H PRN IV PAIN LEVEL 7-10 Last administered on 12/13/16 05:57; Admin Dose 2 MG; Start 11/30/16 at 05:00 Miscellaneous Information 1 ea NOTE XX ; Start 11/30/16 at 05:00 Glucose (Glutose) 15 gm Q15M PRN PO DECREASED GLUCOSE; Start 11/30/16 at 05:00 Glucose (Glutose) 22.5 gm Q15M PRN PO DECREASED GLUCOSE; Start 11/30/16 at 05: 00 Dextrose (D50w Syringe) 25 ml Q15M PRN IV DECREASED GLUCOSE; Start 11/30/16 at 05:00 Dextrose (D50w Syringe) 50 ml Q15M PRN IV DECREASED GLUCOSE; Start 11/30/16 at 05:00 Glucagon (Glucagen) 1 mg Q15M PRN IM DECREASED GLUCOSE; Start 11/30/16 at 05:00 Glucose (Glutose) 15 gm Q15M PRN BUCCAL DECREASED GLUCOSE; Start 11/30/16 at 05 :00 Metoprolol Tartrate (Lopressor) 2.5 mg Q2H PRN IV heart rate over 110 Last administered on 12/10/16 06:12; Admin Dose 2.5 MG; Start 12/01/16 at 12:00 Collagenase (Santyl) 1 applic DAILY TOP Last administered on 12/15/16 09:15; Admin Dose 1 APPLIC; Start 12/02/16 at 12:00 Collagenase (Santyl) 1 applic DAILY PRN TOP PER WOUND CARE ORDERS; Start at 11:30 Mupirocin (Bactroban) 1 applic BID TOP Last administered on 12/15/16 09:10; Admin Dose 1 APPLIC; Start 12/02/16 at 21:00; Stop 12/16/16 at 20:59 Metoprolol Tartrate (Lopressor) 50 mg BID GTB Last administered on 12/15/16 09 :10; Admin Dose 50 MG; Start 12/04/16 at 21:00 Famotidine (Pepcid) 20 mg DAILY GTB Last administered on 12/15/16 09:10; Admin Dose 20 MG; Start 12/05/16 at 09:00 Losartan Potassium (Cozaar) 25 mg BID PO Last administered on 12/15/16 09:10; Admin Dose 25 MG; Start 12/05/16 at 21:00 Hydralazine HCl 10 mg 10 mg Q6H PRN IV ELEVATED BLOOD PRESSURE Last administered on 12/13/16 18:26; Admin Dose 10 MG; Start 12/06/16 at 16:00 Vancomycin HCl 250 ml @ 125 mls/hr Q24H IVPB Last administered on 12/15/16 04 :41; Admin Dose 125 MLS/HR; Start 12/07/16 at 05:00 Ceftazidime/ Dextrose (Fortaz 2gm/50 ml (Pmx)) 50 ml @ 100 mls/hr Q8 IVPB Last administered on 12/15/16 15:30; Admin Dose 100 MLS/HR; Start 12/09/16 at 14:00 Metronidazole 250 mg 250 mg Q8 GTB Last administered on 12/15/16 15:38; Admin Dose 250 MG; Start 12/09/16 at 22:00 Sodium Chloride (NS) 1,000 ml @ 75 mls/hr [id number] IV Last administered on 12/15 06:02; Admin Dose 75 MLS/HR; Start 12/10/16 at 13:00 Amikacin Sulfate AMIKACIN PER PHARMACY NOTE XX ; Start 12/10/16 at 19:00 Amikacin Sulfate/ Sodium Chloride (Amikacin/NS) 150 ml @ 150 mls/hr Q48H IVPB ; Start 12/15/16 at 22:00 Ketoconazole (Nizoral Shampoo) 1 applic Q12 TOP Last administered on 12/15/16 09:09; Admin Dose 1 APPLIC; Start 12/14/16 at 21:00 Ketoconazole (Nizoral Cr) 1 applic BID TOP Last administered on 12/15/16 09:09 ; Admin Dose 1 APPLIC; Start 12/14/16 at 21:00 OSEI BLACKWOOD NP Dec 15, 2016 19:20
[2016-12-15] MEDS: SOD CHLORIDE 0.9% IVPB SCH (22:41)
[2016-12-15] MEDS: AMIKACIN IVPB SCH (22:41)
[2016-12-16] VITALS (23 sets, daily range): BP systolic 119–158; BP diastolic 63–82; PULSE 76–127; RESP 15–25
[2016-12-16] MEDS: LEVALBUTEROL (HFA) 15 GM INHALER INH SCH ×3 (00:57→16:56)
[2016-12-16] MEDS: SOD CHLORIDE 0.9% 1,000 ML IV SCH ×3 (02:20→15:40)
[2016-12-16] MEDS: VANCOMYCIN 1 GM in NS 250 ML IVPB SCH (05:31)
[2016-12-16] MEDS: metroNIDAZOLE 250 MG TAB GTB SCH ×3 (05:31→22:26)
[2016-12-16 05:56] LABS: ADD SCAN DIFF NO
[2016-12-16 05:59] LABS: BASOPHIL # 0.1 10^3/ul (0.0-0.1); BASOPHILS % 0.3 % (0.0-2.0); EOSINOPHILS # 0.6 10^3/ul (0.0-0.5); EOSINOPHILS % 3.3 % (0.0-7.0); HEMATOCRIT 28.8 % (42.0-52.0); HEMOGLOBIN 8.8 g/dl (14.0-18.0); LYMPHOCYTES # 1.1 10^3/ul (0.8-2.9); LYMPHOCYTES % 6.2 % (15.0-51.0); MEAN CORPUSCULAR HEMOGLOBIN 27.5 pg (29.0-33.0); MEAN CORPUSCULAR HGB CONC 30.6 g/dl (32.0-37.0); MEAN PLATELET VOLUME 11.1 fl (7.4-10.4); MONOCYTE # 0.6 10^3/ul (0.3-0.9); MONOCYTES % 3.7 % (0.0-11.0); NEUTROPHIL # 14.7 10^3/ul (1.6-7.5); NEUTROPHILS % 85.4 % (39.0-77.0); PLATELET COUNT 209 10^3/UL (140-415); RED CELL DISTRIBUTION WIDTH 15.9 % (11.5-14.5); WHITE BLOOD COUNT 17.2 10^3/ul (4.8-10.8)
[2016-12-16] MEDS: CEFTAZIDIME 2GM/50 ML (PMX) 50 ML IVPB SCH ×3 (06:18→22:26)
[2016-12-16 06:22] LABS: ALBUMIN 2.1 g/dl (3.3-4.9)
[2016-12-16 06:23] LABS: POTASSIUM 3.5 mmol/L (3.5-5.1)
[2016-12-16 06:25] LABS: ALBUMIN/GLOBULIN RATIO 0.4; BILIRUBIN,INDIRECT 0.1 mg/dl (0-1.1); BILIRUBIN,TOTAL 0.1 mg/dl (0.2-1.3); CREATININE 0.49 mg/dl (0.61-1.24); TOTAL PROTEIN 7.3 g/dl (6.1-8.1)
[2016-12-16 06:26] LABS: CALCIUM 9.8 mg/dl (8.4-10.2); MAGNESIUM 1.9 mg/dl (1.7-2.5)
[2016-12-16] MEDS: IPRATROPIUM (HFA) 12.9 GM INHALER INH SCH ×2 (09:23→15:41)
[2016-12-16] MEDS: KETOCONAZOLE 2% SHAMPOO 120 ML BTL TOP SCH ×2 (10:16→20:27)
[2016-12-16] MEDS: METOPROLOL 25 MG TAB GTB SCH ×2 (10:17→20:27)
[2016-12-16] MEDS: MUPIROCIN 2% 22 GM OINT TOP SCH (10:17)
[2016-12-16] MEDS: KETOCONAZOLE 2% 15 GM CR TOP SCH ×2 (10:17→20:27)
[2016-12-16] MEDS: LOSARTAN 25 MG TAB PO SCH ×2 (10:17→20:26)
[2016-12-16] MEDS: FAMOTIDINE 20 MG TAB GTB SCH (10:17)
[2016-12-16] MEDS: COLLAGENASE 30 GM TUBE TOP SCH (10:18)
--- NOTE | 2016-12-16 10:56 | RADRPT ---
PROCEDURE: XR Chest 1 View. CLINICAL INDICATION: Shortness of breath, pneumonia TECHNIQUE: AP view of the chest was obtained. COMPARISON: December 10, [address] December 12, 2016 FINDINGS: The heart size is within normal limits. Calcified atherosclerosis is noted in the aorta. Tracheosto my tube is stable and appears in grossly appropriate location. Patchy infiltrates throughout the ri ght lung, combined with moderate pleural effusion are unchanged. Patchy infiltrates throughout the left lung and small left pleural effusion are stable. The osseous structures are osteopenic, but ronda ear grossly intact. Left-sided PICC line is stable. IMPRESSION: Calcified atherosclerosis in the aorta. Stable infiltrates throughout the right lung, combined with moderate pleural effusion. Stable patchy infiltrates throughout the left lung, combined with small left pleural effusion. RPTAT: AA .Jin Gonzalez MD, Date Time Electronically viewed and signed by .Jin Gonzalez MD, on 12/16/2016 10:55 .P/
--- NOTE | 2016-12-16 11:46 | CONS ---
Date/Time of Note Date/Time of Note DATE: 12/16/16 TIME: 11:46 Consultation Date/Type/Reason Admit Date/Time Nov 30, 2016 at 04:54 Initial Consult Date 12/01/16 Type of Consultation: pulmonary Referring Provider: CHARLETTE RUTHERFORD 24 HR Interval Summary Free Text/Dictation dictated Exam/Review of Systems Vital Signs Vitals Vital Signs Date Time Temp Pulse Resp B/P Pulse Ox O2 Delivery O2 Flow Rate FiO2 12/16/16 11:15 90 22 95 45 12/16/16 07:51 97.8 119/63 12/13/16 06:04 Mechanical Ventilator Intake and Output 12/15/16 12/15/16 12/16/16 15:00 23:00 07:00 Intake Total 50 ml 1195 ml 1650 ml Output Total 1000 ml 1400 ml Balance 50 ml 195 ml 250 ml Results Result Diagram: 12/16/16 0535 12/16/16 0535 Results 24 hrs Laboratory Tests Test 12/16/16 05:35 12/16/16 09:30 White Blood Count 17.2 H Red Blood Count 3.20 L Hemoglobin 8.8 L Hematocrit 28.8 L Mean Corpuscular Volume 90.0 Mean Corpuscular Hemoglobin 27.5 L Mean Corpuscular Hemoglobin Concent 30.6 L Red Cell Distribution Width 15.9 H Platelet Count 209 Mean Platelet Volume 11.1 H Neutrophils % 85.4 H Lymphocytes % 6.2 L Monocytes % 3.7 Eosinophils % 3.3 Basophils % 0.3 Nucleated Red Blood Cells % 0.0 Neutrophils # 14.7 H Lymphocytes # 1.1 Monocytes # 0.6 Eosinophils # 0.6 H Basophils # 0.1 Nucleated Red Blood Cells # 0.0 Sodium Level 139 Potassium Level 3.5 Chloride Level 103 Carbon Dioxide Level 29 Anion Gap 11 Blood Urea Nitrogen 29 H Creatinine 0.49 L Glucose Level 136 Calcium Level 9.8 Magnesium Level 1.9 Total Bilirubin 0.1 L Direct Bilirubin 0.00 Indirect Bilirubin 0.1 Aspartate Amino Transf (AST/SGOT) 25 Alanine Aminotransferase (ALT/SGPT) 27 Alkaline Phosphatase 187 H Total Protein 7.3 Albumin 2.1 L Globulin 5.20 H Albumin/Globulin Ratio 0.40 Lab Scanned Report REFERENCE LAB Medications Medications Current Medications Acetaminophen (Tylenol Tab) 650 mg Q6H PRN PEG PAIN LEVEL 1-3 OR FEVER Last administered on 12/15/16 18:21; Admin Dose 650 MG; Start 11/30/16 at 05:00 Morphine Sulfate (morphine) 2 mg Q4H PRN IV PAIN LEVEL 7-10 Last administered on 12/13/16 05:57; Admin Dose 2 MG; Start 11/30/16 at 05:00 Miscellaneous Information 1 ea NOTE XX ; Start 11/30/16 at 05:00 Glucose (Glutose) 15 gm Q15M PRN PO DECREASED GLUCOSE; Start 11/30/16 at 05:00 Glucose (Glutose) 22.5 gm Q15M PRN PO DECREASED GLUCOSE; Start 11/30/16 at 05: 00 Dextrose (D50w Syringe) 25 ml Q15M PRN IV DECREASED GLUCOSE; Start 11/30/16 at 05:00 Dextrose (D50w Syringe) 50 ml Q15M PRN IV DECREASED GLUCOSE; Start 11/30/16 at 05:00 Glucagon (Glucagen) 1 mg Q15M PRN IM DECREASED GLUCOSE; Start 11/30/16 at 05:00 Glucose (Glutose) 15 gm Q15M PRN BUCCAL DECREASED GLUCOSE; Start 11/30/16 at 05 :00 Metoprolol Tartrate (Lopressor) 2.5 mg Q2H PRN IV heart rate over 110 Last administered on 12/10/16 06:12; Admin Dose 2.5 MG; Start 12/01/16 at 12:00 Collagenase (Santyl) 1 applic DAILY TOP Last administered on 12/16/16 10:18; Admin Dose 1 APPLIC; Start 12/02/16 at 12:00 Collagenase (Santyl) 1 applic DAILY PRN TOP PER WOUND CARE ORDERS; Start at 11:30 Mupirocin (Bactroban) 1 applic BID TOP Last administered on 12/16/16 10:17; Admin Dose 1 APPLIC; Start 12/02/16 at 21:00; Stop 12/16/16 at 20:59 Metoprolol Tartrate (Lopressor) 50 mg BID GTB Last administered on 12/16/16 10: 17; Admin Dose 50 MG; Start 12/04/16 at 21:00 Famotidine (Pepcid) 20 mg DAILY GTB Last administered on 12/16/16 10:17; Admin Dose 20 MG; Start 12/05/16 at 09:00 Losartan Potassium (Cozaar) 25 mg BID PO Last administered on 12/16/16 10:17; Admin Dose 25 MG; Start 12/05/16 at 21:00 Hydralazine HCl 10 mg 10 mg Q6H PRN IV ELEVATED BLOOD PRESSURE Last administered on 12/13/16 18:26; Admin Dose 10 MG; Start 12/06/16 at 16:00 Vancomycin HCl 250 ml @ 125 mls/hr Q24H IVPB Last administered on 12/16/16 05: 31; Admin Dose 125 MLS/HR; Start 12/07/16 at 05:00 Ceftazidime/ Dextrose (Fortaz 2gm/50 ml (Pmx)) 50 ml @ 100 mls/hr Q8 IVPB Last administered on 12/16/16 06:18; Admin Dose 100 MLS/HR; Start 12/09/16 at 14 :00 Metronidazole 250 mg 250 mg Q8 GTB Last administered on 12/16/16 05:31; Admin Dose 250 MG; Start 12/09/16 at 22:00 Sodium Chloride (NS) 1,000 ml @ 75 mls/hr [id number] IV Last administered on 12/15 21:32; Admin Dose 75 MLS/HR; Start 12/10/16 at 13:00 Amikacin Sulfate AMIKACIN PER PHARMACY NOTE XX ; Start 12/10/16 at 19:00 Amikacin Sulfate/ Sodium Chloride (Amikacin/NS) 150 ml @ 150 mls/hr Q48H IVPB Last administered on 12/15/16 22:41; Admin Dose 150 MLS/HR; Start 12/15/16 at 22:00 Ketoconazole (Nizoral Shampoo) 1 applic Q12 TOP Last administered on 12/16/16 10:16; Admin Dose 1 APPLIC; Start 12/14/16 at 21:00 Ketoconazole (Nizoral Cr) 1 applic BID TOP Last administered on 12/16/16 10:17 ; Admin Dose 1 APPLIC; Start 12/14/16 at 21:00 MARIA ELENA COLLADO December 16, 2016 11:46
--- NOTE | 2016-12-16 14:53 | PN ---
DATE: 12/16/2016 SUBJECTIVE: Mr. Ruggiero' condition remains stable. The patient remains awake, alert, and has margo ined hemodynamically stable. PHYSICAL EXAMINATION: GENERAL: Elderly male, currently in no distress. VITAL SIGNS: Temperature is 97.8 degrees Fahrenheit, heart rate of 90 per minute, blood pressure 11 9/53, respiratory rate is 20 per minute, O2 sat 97% on current ventilator settings. HEENT: Supple neck. No JVD, no lymphadenopathy, midline trachea, no thyromegaly. Pharynx is clear . The patient is edentulous. Tracheostomy in place with clean insertion site. CHEST: Diffuse crackles involving right lung. Left lung is clear. HEART: S1, S2 audible. No murmurs. ABDOMEN: Soft. G-tube in place. No organomegaly, nontender, no distention. EXTREMITIES: No peripheral edema. NEUROLOGIC: Patient is awake, alert, has stable quadriplegia. LABORATORY DATA: White count is 17.2, hemoglobin 48.8, platelet count of 209. Sodium 139, potassiu m 3.5, chloride 103, bicarbonate 29, BUN 29, creatinine 0.4, glucose 136. MEDICATIONS: Reviewed. CURRENT VENTILATOR SETTINGS: AC of 18, tidal volume 550, PEEP of 5, 50% FIO2. ASSESSMENT AND PLAN: 1. Patient admitted with severe right-sided pneumonia, possibly aspiration. 2. High peak airway pressures. 3. History of hypertension. 4. Quadriplegia. 5. Anemia. RECOMMENDATIONS: Decreased . Ventilator settings have been adjusted. Assist control rate h as been dropped down to 14 and tidal volume to 500 with continuation of 50% FIO2. Meanwhile, contin ue current antibiotics, other supportive measures. Prognosis is guarded. Dictated By: MARIA ELENA RAMOS/NTS Conf#: [id number] DID#: [id number]
--- NOTE | 2016-12-16 15:25 | PN ---
DATE: 12/16/2016 SUBJECTIVE: No events overnight. The patient still has copious secretions, lying comfortably in be d. WBC today 17.2 with neutrophils 85.4, BUN 29, creatinine 0.49. VITAL SIGNS: Temperature 98.8, pulse 81, respirations 22, blood pressure 134/64, saturation 99%. DIAGNOSTICS: Chest x-ray this morning revealed stable infiltrates. INDWELLINGS: Trach, PEG, Cherry, PICC line. ANTIMICROBIALS: The patient is on amikacin, Fortaz, vancomycin. PHYSICAL EXAMINATION: GENERAL: This is a chronically ill-appearing, fragile, elderly man who is in no distress. HEENT: Head atraumatic, normocephalic. Sclerae anicteric. Buccal mucosa dry. NECK: Supple. Tracheostomy present. CHEST: Rise symmetrical. Breath sounds diminished to bases. HEART: S1, S2. ABDOMEN: Soft, bowel sounds present. EXTREMITIES: No cyanosis. ASSESSMENT: 1. Systemic inflammatory response syndrome with persistent leukocytosis. 2. Healthcare-associated pneumonia with significant secretion retention and sputum culture and bron choalveolar lavage growing Pseudomonas aeruginosa and Providencia stuartii. 3. Sacral decubitus. 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 5. Diabetes. 6. Chronic kidney disease. PLAN: The patient remains stable, still with persistent leukocytosis. He is covered with appropria te antimicrobials. Pulmonary on case, continue present care, aggressive pulmonary toilet and suctio kulwant. Dictated By: ELI VALDEZ AMMONIUM SULFATE OPERATOR for JANICE CASTILLO/MENDOZA Conf#: [id number] DID#: [id number]
--- NOTE | 2016-12-16 23:58 | PN ---
Date/Time of Note Date/Time of Note DATE: 12/16/16 TIME: 23:55 Assessment/Plan VTE Prophylaxis VTE Prophylaxis Intervention: SCD's VTE Contraindication Reason: anticoagulation not tolerated Lines/Catheters IV Catheter Type (from Nrsg): PICC Line Central line still needed: Yes Urinary Cath still in place: Yes Reason Cath still needed: pres ulcer contaminated by urine Assessment/Plan Assessment/Plan 1. Sepsis, Bilateral Pneumonia, likely HCAP, CT chest with severe bilateral PNA and CT neck with OA. Polymicrobial and MDR organisms Leukocytosis is improved to approximately 17. On Vancomycin, Amikacin and Fortaz On IVF currently at gentle rate. Appreciate ID recommendations on this complicated case. 2. Chronic vent-dependent respiratory failure, stable on Vent, oxygenating well. Per family has been able to have some puree at subacute facility while on the vent? Continue Vancomycin, Ceftazidime and Amikacin. Appreciate Pulmonary recommendations, Repeat CT chest (12/12) showing ongoing bilateral PNA. CXR from this AM demonstrates stable right moderate pleural effusion and infiltrates. 3. Hypokalemia/Hypomagnesemia: Replete K prn, Mag okay 4. Severe anemia on admission, possible GI bleeding, but if so resolved now. Continue PPI. No evidence for active bleeding for now. Back on Iron supplement. 5. Elevated troponins in setting of a fib with RVR and sepsis, CAD HR controlled with Bblocker, up to 50 mg po bid. Appreciate Cardiology recommendations. No anticoag due to Anemia 6. MRSA nares: Bactroban, on Vancomycin already 7. Sacral Decub, seems to be healing well per RN and wound care but cx polymicrobial with MDRO. Abx adjusted by ID and on wound care protocol. 8. Hypertension: Continue Metoprolol at 50 mg po bid and Losartan as long as BP tolerating. Prophylaxis: Continue SCDs and Famotidine Disposition: On contact isolation and Telemetry. Continue current care. Seems to be improving some x3 days but mental status varies, and today WBC slightly decreased and hgb improved after one unit PRBC from Friday. Plan to send back to [facility] if he continues to remain stable. I agree with other MDs that prognosis remains poor to fair at best. Patient is DNR Subjective 24 Hr Interval Summary Free Text/Dictation No events overnight. Subjective hx not possible: pt non-verbal, other Exam/Review of Systems Vital Signs Vitals Vital Signs Date Time Temp Pulse Resp B/P Pulse Ox O2 Delivery O2 Flow Rate FiO2 12/16/16 23:43 97.6 105 18 137/82 92 12/16/16 18:53 50 12/13/16 06:04 Mechanical Ventilator Intake and Output 12/15/16 12/15/16 12/16/16 15:00 23:00 07:00 Intake Total 50 ml 1195 ml 1650 ml Output Total 1000 ml 1400 ml Balance 50 ml 195 ml 250 ml Exam Constitutional: frail, non-verbal Head: normocephalic Eyes: nl conjunctiva ENMT: other (tracheotomy) Neck: supple Respiratory: crackles/rales, diminished breath sounds Cardiovascular: regular rate and rhythm Extremities: normal pulses Results Result Diagram: 12/16/1635 12/16/16 0535 Results 24 hrs Laboratory Tests Test 12/16/16 05:35 12/16/16 09:30 White Blood Count 17.2 H Red Blood Count 3.20 L Hemoglobin 8.8 L Hematocrit 28.8 L Mean Corpuscular Volume 90.0 Mean Corpuscular Hemoglobin 27.5 L Mean Corpuscular Hemoglobin Concent 30.6 L Red Cell Distribution Width 15.9 H Platelet Count 209 Mean Platelet Volume 11.1 H Neutrophils % 85.4 H Lymphocytes % 6.2 L Monocytes % 3.7 Eosinophils % 3.3 Basophils % 0.3 Nucleated Red Blood Cells % 0.0 Neutrophils # 14.7 H Lymphocytes # 1.1 Monocytes # 0.6 Eosinophils # 0.6 H Basophils # 0.1 Nucleated Red Blood Cells # 0.0 Sodium Level 139 Potassium Level 3.5 Chloride Level 103 Carbon Dioxide Level 29 Anion Gap 11 Blood Urea Nitrogen 29 H Creatinine 0.49 L Glucose Level 136 Calcium Level 9.8 Magnesium Level 1.9 Total Bilirubin 0.1 L Direct Bilirubin 0.00 Indirect Bilirubin 0.1 Aspartate Amino Transf (AST/SGOT) 25 Alanine Aminotransferase (ALT/SGPT) 27 Alkaline Phosphatase 187 H Total Protein 7.3 Albumin 2.1 L Globulin 5.20 H Albumin/Globulin Ratio 0.40 Lab Scanned Report REFERENCE LAB Medications Medications Current Medications Acetaminophen (Tylenol Tab) 650 mg Q6H PRN PEG PAIN LEVEL 1-3 OR FEVER Last administered on 12/15/16t 18:21; Admin Dose 650 MG; Start 11/30/16 at 05:00 Morphine Sulfate (morphine) 2 mg Q4H PRN IV PAIN LEVEL 7-10 Last administered on 12/13/16 05:57; Admin Dose 2 MG; Start 11/30/16 at 05:00 Miscellaneous Information 1 ea NOTE XX ; Start 11/30/16 at 05:00 Glucose (Glutose) 15 gm Q15M PRN PO DECREASED GLUCOSE; Start 11/30/16 at 05:00 Glucose (Glutose) 22.5 gm Q15M PRN PO DECREASED GLUCOSE; Start 11/30/16 at 05: 00 Dextrose (D50w Syringe) 25 ml Q15M PRN IV DECREASED GLUCOSE; Start 11/30/16 at 05:00 Dextrose (D50w Syringe) 50 ml Q15M PRN IV DECREASED GLUCOSE; Start 11/30/16 at 05:00 Glucagon (Glucagen) 1 mg Q15M PRN IM DECREASED GLUCOSE; Start 11/30/16 at 05:00 Glucose (Glutose) 15 gm Q15M PRN BUCCAL DECREASED GLUCOSE; Start 11/30/16 at 05 :00 Metoprolol Tartrate (Lopressor) 2.5 mg Q2H PRN IV heart rate over 110 Last administered on 12/10/16 06:12; Admin Dose 2.5 MG; Start 12/01/16 at 12:00 Collagenase (Santyl) 1 applic DAILY TOP Last administered on 12/16/16 10:18; Admin Dose 1 APPLIC; Start 12/02/16 at 12:00 Collagenase (Santyl) 1 applic DAILY PRN TOP PER WOUND CARE ORDERS; Start at 11:30 Metoprolol Tartrate (Lopressor) 50 mg BID GTB Last administered on 12/16/16 20: 27; Admin Dose 50 MG; Start 12/04/16 at 21:00 Famotidine (Pepcid) 20 mg DAILY GTB Last administered on 12/16/16 10:17; Admin Dose 20 MG; Start 12/05/16 at 09:00 Losartan Potassium (Cozaar) 25 mg BID PO Last administered on 12/16/16 20:26; Admin Dose 25 MG; Start 12/05/16 at 21:00 Hydralazine HCl 10 mg 10 mg Q6H PRN IV ELEVATED BLOOD PRESSURE Last administered on 12/13/16 18:26; Admin Dose 10 MG; Start 12/06/16 at 16:00 Vancomycin HCl 250 ml @ 125 mls/hr Q24H IVPB Last administered on 12/16/16 05: 31; Admin Dose 125 MLS/HR; Start 12/07/16 at 05:00 Ceftazidime/ Dextrose (Fortaz 2gm/50 ml (Pmx)) 50 ml @ 100 mls/hr Q8 IVPB Last administered on 12/16/16 22:26; Admin Dose 100 MLS/HR; Start 12/09/16 at 14 :00 Metronidazole 250 mg 250 mg Q8 GTB Last administered on 12/16/16 22:26; Admin Dose 250 MG; Start 12/09/16 at 22:00 Sodium Chloride (NS) 1,000 ml @ 75 mls/hr [id number] IV Last administered on 14:36; Admin Dose 75 MLS/HR; Start 12/10/16 at 13:00 Amikacin Sulfate AMIKACIN PER PHARMACY NOTE XX ; Start 12/10/16 at 19:00 Amikacin Sulfate/ Sodium Chloride (Amikacin/NS) 150 ml @ 150 mls/hr Q48H IVPB Last administered on 12/15/16 22:41; Admin Dose 150 MLS/HR; Start 12/15/16 at 22:00 Ketoconazole (Nizoral Shampoo) 1 applic Q12 TOP Last administered on 12/16/16 20:27; Admin Dose 1 APPLIC; Start 12/14/16 at 21:00 Ketoconazole (Nizoral Cr) 1 applic BID TOP Last administered on 12/16/16 20:27 ; Admin Dose 1 APPLIC; Start 12/14/16 at 21:00 RACHNA MEDRANO MD December 16, 2016 23:58
[2016-12-17] VITALS (25 sets, daily range): BP systolic 109–142; BP diastolic 61–71; PULSE 90–117; RESP 15–34
[2016-12-17] MEDS: IPRATROPIUM (HFA) 12.9 GM INHALER INH SCH ×3 (00:06→15:16)
[2016-12-17] MEDS: LEVALBUTEROL (HFA) 15 GM INHALER INH SCH ×3 (00:06→15:16)
[2016-12-17] MEDS: metroNIDAZOLE 250 MG TAB GTB SCH (04:28)
[2016-12-17] MEDS: SOD CHLORIDE 0.9% 1,000 ML IV SCH (04:28)
[2016-12-17] MEDS: VANCOMYCIN 1 GM in NS 250 ML IVPB SCH (04:29)
[2016-12-17] MEDS: CEFTAZIDIME 2GM/50 ML (PMX) 50 ML IVPB SCH ×3 (06:30→21:48)
[2016-12-17] MEDS: METOPROLOL 5 MG INJ IV PRN (06:57)
[2016-12-17 07:06] LABS: ADD SCAN DIFF NO
[2016-12-17 07:17] LABS: ABNORMAL IP MESSAGE 1; BASOPHIL # 0.1 10^3/ul (0.0-0.1); BASOPHILS % 0.2 % (0.0-2.0); EOSINOPHILS # 0.3 10^3/ul (0.0-0.5); EOSINOPHILS % 1.4 % (0.0-7.0); HEMATOCRIT 31.7 % (42.0-52.0); HEMOGLOBIN 9.7 g/dl (14.0-18.0); LYMPHOCYTES # 1.2 10^3/ul (0.8-2.9); LYMPHOCYTES % 5.2 % (15.0-51.0); MEAN CORPUSCULAR HEMOGLOBIN 27.8 pg (29.0-33.0); MEAN CORPUSCULAR HGB CONC 30.6 g/dl (32.0-37.0); MEAN CORPUSCULAR VOLUME 90.8 fl (82.0-101.0); MEAN PLATELET VOLUME 11.3 fl (7.4-10.4); MONOCYTE # 0.9 10^3/ul (0.3-0.9); MONOCYTES % 3.9 % (0.0-11.0); NEUTROPHIL # 20.2 10^3/ul (1.6-7.5); NEUTROPHILS % 88.3 % (39.0-77.0); PLATELET COUNT 233 10^3/UL (140-415); RED BLOOD COUNT 3.49 10^6/ul (4.70-6.10); WHITE BLOOD COUNT 22.9 10^3/ul (4.8-10.8)
[2016-12-17 07:24] LABS: POTASSIUM 3.1 mmol/L (3.5-5.1)
[2016-12-17 07:27] LABS: CREATININE 0.5 mg/dl (0.61-1.24)
[2016-12-17 07:28] LABS: CALCIUM 9.8 mg/dl (8.4-10.2)
[2016-12-17] MEDS: FAMOTIDINE 20 MG TAB GTB SCH (09:45)
[2016-12-17] MEDS: METOPROLOL 25 MG TAB GTB SCH ×2 (09:45→21:48)
[2016-12-17] MEDS: KETOCONAZOLE 2% SHAMPOO 120 ML BTL TOP SCH ×2 (09:46→21:49)
[2016-12-17] MEDS: LOSARTAN 25 MG TAB PO SCH ×2 (09:46→21:48)
[2016-12-17] MEDS: KETOCONAZOLE 2% 15 GM CR TOP SCH ×2 (09:46→21:49)
[2016-12-17] MEDS: COLLAGENASE 30 GM TUBE TOP SCH (09:46)
[2016-12-17] MEDS ORDERED: POTASSIUM CHLORIDE 20 MEQ in SOD CHLORIDE 0.9% 100 ML IVPB SCH (11:00)
--- NOTE | 2016-12-17 11:01 | CONS ---
Date/Time of Note Date/Time of Note DATE: 12/17/16 TIME: 10:59 Assessment/Plan Assessment/Plan Additional Assessment/Plan Ventilator settings; AC of 14, tidal volume 500, PEEP of 5, 40% FiO2. Assessment recommendations; 1. Patient admitted for severe right-sided pneumonia possibly from aspiration. multiple organisms cultured from sputum. 2. Chronic respiratory failure due to quadriplegia. 3. History of hypertension. Continue current treatment. Consultation Date/Type/Reason Admit Date/Time Nov 30, 2016 at 04:54 Initial Consult Date 12/01/16 Type of Consultation: pulmonary Referring Provider: CHARLETTE RUTHERFORD 24 HR Interval Summary Free Text/Dictation Patient condition remains stable. Remains awake alert. Has remained hemodynamically stable. General exam; elderly male, on ventilator via tracheostomy currently in no distress. Exam/Review of Systems Vital Signs Vitals Vital Signs Date Time Temp Pulse Resp B/P Pulse Ox O2 Delivery O2 Flow Rate FiO2 12/17/16 09:30 125 22 96 40 12/17/16 08:05 98.3 142/71 Intake and Output 12/16/16 12/16/16 12/17/16 15:00 23:00 07:00 Intake Total 920 ml 2560 ml Output Total 1700 ml 1000 ml Balance -780 ml 1560 ml Exam HEENT exam is; supple neck, no JVD. No lymphadenopathy. Midline trachea. No thyromegaly. Tracheostomy in place. Patient is edentulous. Pupils are small bilaterally. Chest examination; diffuse crackles involving right lung. Left leg is clear to auscultation. S1-S2 audible, no murmurs. Regular rhythm. Abdomen examination; soft, nondistended. G-tube in place. Bowel sounds audible. Extremity examination; no edema. FLOOR LAYER TILE examination; patient is awake and alert has stable quadriplegia. Results Result Diagram: 12/17/16 0637 12/17/16 0637 Results 24 hrs Laboratory Tests Test 12/17/16 06:37 White Blood Count 22.9 #H Red Blood Count 3.49 L Hemoglobin 9.7 L Hematocrit 31.7 L Mean Corpuscular Volume 90.8 Mean Corpuscular Hemoglobin 27.8 L Mean Corpuscular Hemoglobin Concent 30.6 L Red Cell Distribution Width 16.0 H Platelet Count 233 Mean Platelet Volume 11.3 H Neutrophils % 88.3 H Lymphocytes % 5.2 L Monocytes % 3.9 Eosinophils % 1.4 Basophils % 0.2 Nucleated Red Blood Cells % 0.0 Neutrophils # 20.2 H Lymphocytes # 1.2 Monocytes # 0.9 Eosinophils # 0.3 Basophils # 0.1 Nucleated Red Blood Cells # 0.0 Sodium Level 140 Potassium Level 3.1 L Chloride Level 103 Carbon Dioxide Level 28 Anion Gap 12 Blood Urea Nitrogen 29 H Creatinine 0.50 L Glucose Level 149 Calcium Level 9.8 Medications Medications Current Medications Acetaminophen (Tylenol Tab) 650 mg Q6H PRN PEG PAIN LEVEL 1-3 OR FEVER Last administered on 12/15/16 18:21; Admin Dose 650 MG; Start 11/30/16 at 05:00 Morphine Sulfate (morphine) 2 mg Q4H PRN IV PAIN LEVEL 7-10 Last administered on 12/13/16 05:57; Admin Dose 2 MG; Start 11/30/16 at 05:00 Miscellaneous Information 1 ea NOTE XX ; Start 11/30/16 at 05:00 Glucose (Glutose) 15 gm Q15M PRN PO DECREASED GLUCOSE; Start 11/30/16 at 05:00 Glucose (Glutose) 22.5 gm Q15M PRN PO DECREASED GLUCOSE; Start 11/30/16 at 05: 00 Dextrose (D50w Syringe) 25 ml Q15M PRN IV DECREASED GLUCOSE; Start 11/30/16 at 05:00 Dextrose (D50w Syringe) 50 ml Q15M PRN IV DECREASED GLUCOSE; Start 11/30/16 at 05:00 Glucagon (Glucagen) 1 mg Q15M PRN IM DECREASED GLUCOSE; Start 11/30/16 at 05:00 Glucose (Glutose) 15 gm Q15M PRN BUCCAL DECREASED GLUCOSE; Start 11/30/16 at 05 :00 Metoprolol Tartrate (Lopressor) 2.5 mg Q2H PRN IV heart rate over 110 Last administered on 12/17/16 06:57; Admin Dose 2.5 MG; Start 12/01/16 at 12:00 Collagenase (Santyl) 1 applic DAILY TOP Last administered on 12/17/16 09:46; Admin Dose 1 APPLIC; Start 12/02/16 at 12:00 Collagenase (Santyl) 1 applic DAILY PRN TOP PER WOUND CARE ORDERS; Start at 11:30 Metoprolol Tartrate (Lopressor) 50 mg BID GTB Last administered on 12/17/16 09: 45; Admin Dose 50 MG; Start 12/04/16 at 21:00 Famotidine (Pepcid) 20 mg DAILY GTB Last administered on 12/17/16 09:45; Admin Dose 20 MG; Start 12/05/16 at 09:00 Losartan Potassium (Cozaar) 25 mg BID PO Last administered on 12/17/16 09:46; Admin Dose 25 MG; Start 12/05/16 at 21:00 Hydralazine HCl 10 mg 10 mg Q6H PRN IV ELEVATED BLOOD PRESSURE Last administered on 12/13/16 18:26; Admin Dose 10 MG; Start 12/06/16 at 16:00 Vancomycin HCl 250 ml @ 125 mls/hr Q24H IVPB Last administered on 12/17/16 04: 29; Admin Dose 125 MLS/HR; Start 12/07/16 at 05:00 Ceftazidime/ Dextrose (Fortaz 2gm/50 ml (Pmx)) 50 ml @ 100 mls/hr Q8 IVPB Last administered on 12/17/16 06:30; Admin Dose 100 MLS/HR; Start 12/09/16 at 14 :00 Metronidazole 250 mg 250 mg Q8 GTB Last administered on 12/17/16 04:28; Admin Dose 250 MG; Start 12/09/16 at 22:00 Sodium Chloride (NS) 1,000 ml @ 75 mls/hr [id number] IV Last administered on 04:28; Admin Dose 75 MLS/HR; Start 12/10/16 at 13:00 Amikacin Sulfate AMIKACIN PER PHARMACY NOTE XX ; Start 12/10/16 at 19:00 Amikacin Sulfate/ Sodium Chloride (Amikacin/NS) 150 ml @ 150 mls/hr Q48H IVPB Last administered on 12/15/16 22:41; Admin Dose 150 MLS/HR; Start 12/15/16 at 22:00 Ketoconazole (Nizoral Shampoo) 1 applic Q12 TOP Last administered on 12/17/16 09:46; Admin Dose 1 APPLIC; Start 12/14/16 at 21:00 Ketoconazole 1 applic 1 applic BID TOP Last administered on 12/17/16 09:46; Admin Dose 1 APPLIC; Start 12/14/16 at 21:00 Potassium Chloride/Sodium Chloride (KCl/NS) 110 ml @ 55 mls/hr ONCE IVPB Last administered on 12/17/16 10:57; Admin Dose 55 MLS/HR; Start 12/17/16 at 11:00; Stop 12/17/16 at 12:59 MARIA ELENA COLLADO December 17, 2016 11:01
--- NOTE | 2016-12-17 11:58 | PN ---
Date/Time of Note Date/Time of Note DATE: 12/17/16 TIME: 11:53 Assessment/Plan VTE Prophylaxis VTE Prophylaxis Intervention: SCD's Lines/Catheters IV Catheter Type (from Nrsg): PICC Line Central line still needed: Yes (IV abx intermediate for MDR pneumonia ) Urinary Cath still in place: Yes Reason Cath still needed: urinary retention Assessment/Plan Assessment/Plan 1. Sepsis, Bilateral Pneumonia, likely HCAP, CT chest with severe bilateral PNA and CT neck with OA. Polymicrobial and MDR organisms pt on three abx, IV vancomycin, amikacin and Ceftrazidiem d/w ID today to get final recommendations about IV abx plan 2. Chronic vent-dependent respiratory failure, stable on Vent, oxygenating well. Per family has been able to have some puree at subacute facility while on the vent? Continue Vancomycin, Ceftazidime and Amikacin. on Fio2 40%, Pulmonary has been following 3. Hypokalemia/Hypomagnesemia: KCl 20mEQ IV x 1 today 4. Severe anemia on admission, possible GI bleeding, but if so resolved now. Continue PPI. No evidence for active bleeding for now. Back on Iron supplement. 5. Elevated troponins in setting of a fib with RVR and sepsis, CAD , due to demand in the setting of atrial firbillatin with RVR HR controlled with Bblocker, up to 50 mg po bid. Appreciate Cardiology recommendations. No anticoagulation due to Anemia and GI bleeding 6. MRSA nares: Bactroban, on Vancomycin already 7. Sacral Decub, seems to be healing well per RN and wound care but cx polymicrobial with MDRO. Abx adjusted by ID and on wound care protocol. 8. Hypertension: Continue Metoprolol at 50 mg po bid and Losartan as long as BP tolerating. Prophylaxis: Continue SCDs and Famotidine Disposition: pt is on Fio2 40% with 3 abx on board including vancomycin, ceftazidime and Amikacin- discussed with ID today to get final Abx recommendations on plan of abx Today WBC count bumped upto 22- ID recommended to wait for improving WBC count Patient is DNR Subjective 24 Hr Interval Summary Free Text/Dictation pt on FiO2 40%, K low, Bp stable, on IVF NS, on IV abx Ceftazidime, vancomycin and amikacin Exam/Review of Systems Vital Signs Vitals Vital Signs Date Time Temp Pulse Resp B/P Pulse Ox O2 Delivery O2 Flow Rate FiO2 12/17/16 11:06 50 12/17/16 11:05 91 18 94 12/17/16 08:05 98.3 142/71 Intake and Output 12/16/16 12/16/16 12/17/16 15:00 23:00 07:00 Intake Total 920 ml 2560 ml Output Total 1700 ml 1000 ml Balance -780 ml 1560 ml Exam GENERAL: This is a chronically ill-appearing, fragile, elderly man who is in no distress. HEENT: Head atraumatic, normocephalic. Sclerae anicteric. Buccal mucosa dry. NECK: Supple. Tracheostomy present. CHEST: Rise symmetrical. Breath sounds diminished to bases. HEART: S1, S2. ABDOMEN: Soft, bowel sounds present. EXTREMITIES: No cyanosis. Results Result Diagram: 12/17/16 0637 12/17/16 0637 Results 24 hrs Laboratory Tests Test 12/17/16 06:37 White Blood Count 22.9 #H Red Blood Count 3.49 L Hemoglobin 9.7 L Hematocrit 31.7 L Mean Corpuscular Volume 90.8 Mean Corpuscular Hemoglobin 27.8 L Mean Corpuscular Hemoglobin Concent 30.6 L Red Cell Distribution Width 16.0 H Platelet Count 233 Mean Platelet Volume 11.3 H Neutrophils % 88.3 H Lymphocytes % 5.2 L Monocytes % 3.9 Eosinophils % 1.4 Basophils % 0.2 Nucleated Red Blood Cells % 0.0 Neutrophils # 20.2 H Lymphocytes # 1.2 Monocytes # 0.9 Eosinophils # 0.3 Basophils # 0.1 Nucleated Red Blood Cells # 0.0 Sodium Level 140 Potassium Level 3.1 L Chloride Level 103 Carbon Dioxide Level 28 Anion Gap 12 Blood Urea Nitrogen 29 H Creatinine 0.50 L Glucose Level 149 Calcium Level 9.8 Medications Medications Current Medications Acetaminophen (Tylenol Tab) 650 mg Q6H PRN PEG PAIN LEVEL 1-3 OR FEVER Last administered on 12/15/16 18:21; Admin Dose 650 MG; Start 11/30/16 at 05:00 Morphine Sulfate (morphine) 2 mg Q4H PRN IV PAIN LEVEL 7-10 Last administered on 12/13/16 05:57; Admin Dose 2 MG; Start 11/30/16 at 05:00 Miscellaneous Information 1 ea NOTE XX ; Start 11/30/16 at 05:00 Glucose (Glutose) 15 gm Q15M PRN PO DECREASED GLUCOSE; Start 11/30/16 at 05:00 Glucose (Glutose) 22.5 gm Q15M PRN PO DECREASED GLUCOSE; Start 11/30/16 at 05: 00 Dextrose (D50w Syringe) 25 ml Q15M PRN IV DECREASED GLUCOSE; Start 11/30/16 at 05:00 Dextrose (D50w Syringe) 50 ml Q15M PRN IV DECREASED GLUCOSE; Start 11/30/16 at 05:00 Glucagon (Glucagen) 1 mg Q15M PRN IM DECREASED GLUCOSE; Start 11/30/16 at 05:00 Glucose (Glutose) 15 gm Q15M PRN BUCCAL DECREASED GLUCOSE; Start 11/30/16 at 05 :00 Metoprolol Tartrate (Lopressor) 2.5 mg Q2H PRN IV heart rate over 110 Last administered on 12/17/16 06:57; Admin Dose 2.5 MG; Start 12/01/16 at 12:00 Collagenase (Santyl) 1 applic DAILY TOP Last administered on 12/17/16 09:46; Admin Dose 1 APPLIC; Start 12/02/16 at 12:00 Collagenase (Santyl) 1 applic DAILY PRN TOP PER WOUND CARE ORDERS; Start at 11:30 Metoprolol Tartrate (Lopressor) 50 mg BID GTB Last administered on 12/17/16 09: 45; Admin Dose 50 MG; Start 12/04/16 at 21:00 Famotidine (Pepcid) 20 mg DAILY GTB Last administered on 12/17/16 09:45; Admin Dose 20 MG; Start 12/05/16 at 09:00 Losartan Potassium (Cozaar) 25 mg BID PO Last administered on 12/17/16 09:46; Admin Dose 25 MG; Start 12/05/16 at 21:00 Hydralazine HCl 10 mg 10 mg Q6H PRN IV ELEVATED BLOOD PRESSURE Last administered on 12/13/16 18:26; Admin Dose 10 MG; Start 12/06/16 at 16:00 Vancomycin HCl 250 ml @ 125 mls/hr Q24H IVPB Last administered on 12/17/16 04: 29; Admin Dose 125 MLS/HR; Start 12/07/16 at 05:00 Ceftazidime/ Dextrose (Fortaz 2gm/50 ml (Pmx)) 50 ml @ 100 mls/hr Q8 IVPB Last administered on 12/17/16 06:30; Admin Dose 100 MLS/HR; Start 12/09/16 at 14 :00 Metronidazole (Flagyl) 250 mg Q8 GTB Last administered on 12/17/16 04:28; Admin Dose 250 MG; Start 12/09/16 at 22:00 Amikacin Sulfate AMIKACIN PER PHARMACY NOTE XX ; Start 12/10/16 at 19:00 Amikacin Sulfate/ Sodium Chloride (Amikacin/NS) 150 ml @ 150 mls/hr Q48H IVPB Last administered on 12/15/16 22:41; Admin Dose 150 MLS/HR; Start 12/15/16 at 22:00 Ketoconazole (Nizoral Shampoo) 1 applic Q12 TOP Last administered on 12/17/16 09:46; Admin Dose 1 APPLIC; Start 12/14/16 at 21:00 Ketoconazole 1 applic 1 applic BID TOP Last administered on 12/17/16 09:46; Admin Dose 1 APPLIC; Start 12/14/16 at 21:00 Potassium Chloride 20 meq/ Sodium Chloride 110 ml @ 55 mls/hr ONCE IVPB Last administered on 12/17/16 10:57; Admin Dose 55 MLS/HR; Start 12/17/16 at 11:00; Stop 12/17/16 at 12:59 Potassium Chloride/Sodium Chloride (KCl/NS) 110 ml @ 55 mls/hr ONCE ONCE IVPB ; Start 12/17/16 at 12:00; Stop 12/17/16 at 13:59; Status [place] MD December 17, 2016 11:58
[2016-12-17] MEDS ORDERED: POTASSIUM CHLORIDE 20 MEQ in SOD CHLORIDE 0.9% 100 ML IVPB ONE (13:00)
--- NOTE | 2016-12-17 14:00 | PN ---
DATE: 12/17/2016 SUBJECTIVE: No events overnight. The patient is lying comfortably in bed. No fevers overnight. N o vomiting or diarrhea. LABORATORY DATA: WBC 22.9, H and H 9.7 and 31.7, platelets 233, neutrophils 88.3, BUN 29, creatinin e 0.50. MICROBIOLOGY: Bronchial aspirate grew Pseudomonas and Providencia stuartii. Sacral wound grew Kleb siella ESBL, Acinetobacter baumannii, MRSA, Proteus and Enterococcus species. ANTIMICROBIALS: The patient is on: 1. Amikacin. 2. Flagyl. 3. Fortaz 4. Vancomycin. INDWELLINGS: Trach, PEG, Cherry. PHYSICAL EXAMINATION: GENERAL: This is a fragile well-developed elderly man who is in no distress. HEENT: Head atraumatic, normocephalic. Sclerae anicteric. Buccal mucosa dry. NECK: Supple. Tracheostomy present. CHEST: Rise symmetrical. Breath sounds diminished to bases. HEART: S1, S2. ABDOMEN: Soft, bowel tones present. EXTREMITIES: Without cyanosis. ASSESSMENT: 1. Systemic inflammatory response syndrome with persistent leukocytosis. 2. Healthcare-associated pneumonia with sputum culture growing Pseudomonas aeruginosa and Providenc ia stuartii. 3. Sacral decubitus with culture growing multiple organisms. 4. Chronic respiratory failure. 5. Methicillin-resistant Staphylococcus aureus nares colonization. 6. Hypertension. PLAN: The patient remains stable clinically and hemodynamically. However, with persistent leukocyt osis. He does not have diarrhea, no vomiting. We will repeat cultures today. Dictated By: ELI VALDEZ WELDING INSPECTOR for JANICE CASTILLO/MENDOZA Conf#: [id number] DID#: [id number]
[2016-12-17] MEDS: SOD CHLORIDE 0.9% IVPB SCH (23:47)
[2016-12-17] MEDS: AMIKACIN IVPB SCH (23:47)
[2016-12-18] VITALS (23 sets, daily range): BP systolic 119–131; BP diastolic 58–82; PULSE 80–106; RESP 15–20
[2016-12-18] MEDS: LEVALBUTEROL (HFA) 15 GM INHALER INH SCH ×4 (01:24→23:53)
[2016-12-18] MEDS: IPRATROPIUM (HFA) 12.9 GM INHALER INH SCH ×4 (01:24→23:53)
[2016-12-18 03:54] LABS: ADD SCAN DIFF NO
[2016-12-18 03:55] LABS: BASOPHILS % 0.2 % (0.0-2.0); EOSINOPHILS # 0.4 10^3/ul (0.0-0.5); EOSINOPHILS % 2.1 % (0.0-7.0); HEMOGLOBIN 8.8 g/dl (14.0-18.0); LYMPHOCYTES # 1.2 10^3/ul (0.8-2.9); MEAN CORPUSCULAR HEMOGLOBIN 27.7 pg (29.0-33.0); MEAN CORPUSCULAR HGB CONC 30.3 g/dl (32.0-37.0); MEAN CORPUSCULAR VOLUME 91.2 fl (82.0-101.0); MEAN PLATELET VOLUME 11.2 fl (7.4-10.4); MONOCYTE # 0.8 10^3/ul (0.3-0.9); NEUTROPHIL # 16.8 10^3/ul (1.6-7.5); NEUTROPHILS % 86.7 % (39.0-77.0); PLATELET COUNT 214 10^3/UL (140-415); RED BLOOD COUNT 3.18 10^6/ul (4.70-6.10); WHITE BLOOD COUNT 19.3 10^3/ul (4.8-10.8)
[2016-12-18 04:06] LABS: INR 1.37; PARTIAL THROMBOPLASTIN TIME 35.2 Sec (25.0-35.0); PROTIME 16.9 Sec (12.2-14.2); PT RATIO 1.3
[2016-12-18 04:32] LABS: ALBUMIN 2.1 g/dl (3.3-4.9)
[2016-12-18 04:33] LABS: POTASSIUM 3.1 mmol/L (3.5-5.1)
[2016-12-18 04:35] LABS: ALBUMIN/GLOBULIN RATIO 0.38; CREATININE 0.47 mg/dl (0.61-1.24); TOTAL PROTEIN 7.5 g/dl (6.1-8.1)
[2016-12-18] MEDS: VANCOMYCIN 1 GM in NS 250 ML IVPB SCH (04:58)
[2016-12-18] MEDS ORDERED: POTASSIUM CHLORIDE 20 MEQ POWDER FOR ORAL SOLN PO PRN ×3 (06:30)
[2016-12-18] MEDS: CEFTAZIDIME 2GM/50 ML (PMX) 50 ML IVPB SCH ×3 (06:32→20:54)
[2016-12-18] MEDS: FAMOTIDINE 20 MG TAB GTB SCH (09:11)
[2016-12-18] MEDS: KETOCONAZOLE 2% SHAMPOO 120 ML BTL TOP SCH ×2 (09:12→20:55)
[2016-12-18] MEDS: KETOCONAZOLE 2% 15 GM CR TOP SCH ×2 (09:13→20:56)
[2016-12-18] MEDS: COLLAGENASE 30 GM TUBE TOP SCH (09:13)
[2016-12-18] MEDS: METOPROLOL 25 MG TAB GTB SCH ×2 (09:13→20:54)
[2016-12-18] MEDS: LOSARTAN 25 MG TAB PO SCH ×2 (09:13→20:55)
[2016-12-18] MEDS: morphine 2 MG INJ IV PRN (09:14)
--- NOTE | 2016-12-18 10:54 | CONS ---
Date/Time of Note Date/Time of Note DATE: 12/18/16 TIME: 10:52 Assessment/Plan Assessment/Plan Additional Assessment/Plan Ventilator settings; AC of 14, tidal volume 500, PEEP of 5, 40% FiO2. Assessment recommendations; 1. Patient admitted with severe right-sided necrotizing pneumonia possibly from aspiration. 2. Chronic respiratory failure due to quadriplegia. 3. Hypertension. Continue current treatment. Consultation Date/Type/Reason Admit Date/Time Nov 30, 2016 at 04:54 Initial Consult Date 12/01/16 Type of Consultation: pulmonary Referring Provider: CHARLETTE RUTHERFORD 24 HR Interval Summary Free Text/Dictation Patient condition remains stable. Remains awake alert. Has remained hemodynamically stable. General exam; elderly male, on ventilator via tracheostomy currently in no distress, awake and alert. Exam/Review of Systems Vital Signs Vitals Vital Signs Date Time Temp Pulse Resp B/P Pulse Ox O2 Delivery O2 Flow Rate FiO2 12/18/16 08:59 96 15 95 35 12/18/16 08:04 97.3 124/75 Intake and Output 12/17/16 12/17/16 12/18/16 15:00 23:00 07:00 Intake Total 560 ml 100 ml 1963 ml Output Total 1700 ml Balance 560 ml 100 ml 263 ml Exam HEENT examination; supple neck, no JVD. No lymphadenopathy. Midline trachea. No thyromegaly. Tracheostomy in place with clean insertion site. Patient is edentulous. Chest examination; left lung is clear to auscultation with crackles involving the entire right lung. S1-S2 audible, no murmurs. Abdomen examination; soft, G-tube in place. No organomegaly. Bowel sounds audible. Extremity examination; no peripheral edema. Next DATA ENTRY TECHNICIAN examination; patient is awake alert has stable quadriplegia. Results Result Diagram: 12/18/16 0340 12/18/16 0340 Results 24 hrs Laboratory Tests Test 12/17/16 21:00 12/18/16 03:40 12/18/16 06:30 Amikacin Level Trough White Blood Count 19.3 H Red Blood Count 3.18 L Hemoglobin 8.8 L Hematocrit 29.0 L Mean Corpuscular Volume 91.2 Mean Corpuscular Hemoglobin 27.7 L Mean Corpuscular Hemoglobin Concent 30.3 L Red Cell Distribution Width 16.0 H Platelet Count 214 Mean Platelet Volume 11.2 H Neutrophils % 86.7 H Lymphocytes % 6.0 L Monocytes % 4.0 Eosinophils % 2.1 Basophils % 0.2 Nucleated Red Blood Cells % 0.0 Neutrophils # 16.8 H Lymphocytes # 1.2 Monocytes # 0.8 Eosinophils # 0.4 Basophils # 0.0 Nucleated Red Blood Cells # 0.0 Prothrombin Time 16.9 H Prothrombin Time Ratio 1.3 INR International Normalized Ratio 1.37 Activated Partial Thromboplast Time 35.2 H Sodium Level 139 Potassium Level 3.1 L Chloride Level 103 Carbon Dioxide Level 30 Anion Gap 9 Blood Urea Nitrogen 30 H Creatinine 0.47 L Glucose Level 142 Calcium Level 10.0 Total Bilirubin 0.0 L Direct Bilirubin 0.00 Indirect Bilirubin 0.0 Aspartate Amino Transf (AST/SGOT) 24 Alanine Aminotransferase (ALT/SGPT) 24 Alkaline Phosphatase 174 H Total Protein 7.5 Albumin 2.1 L Globulin 5.40 H Albumin/Globulin Ratio 0.38 Vancomycin Level Trough 14.9 Lab Scanned Report REFERENCE LAB Medications Medications Current Medications Acetaminophen (Tylenol Tab) 650 mg Q6H PRN PEG PAIN LEVEL 1-3 OR FEVER Last administered on 12/15/16 18:21; Admin Dose 650 MG; Start 11/30/16 at 05:00 Morphine Sulfate (morphine) 2 mg Q4H PRN IV PAIN LEVEL 7-10 Last administered on 12/18/16 09:14; Admin Dose 2 MG; Start 11/30/16 at 05:00 Miscellaneous Information 1 ea NOTE XX ; Start 11/30/16 at 05:00 Glucose (Glutose) 15 gm Q15M PRN PO DECREASED GLUCOSE; Start 11/30/16 at 05:00 Glucose (Glutose) 22.5 gm Q15M PRN PO DECREASED GLUCOSE; Start 11/30/16 at 05: 00 Dextrose (D50w Syringe) 25 ml Q15M PRN IV DECREASED GLUCOSE; Start 11/30/16 at 05:00 Dextrose (D50w Syringe) 50 ml Q15M PRN IV DECREASED GLUCOSE; Start 11/30/16 at 05:00 Glucagon (Glucagen) 1 mg Q15M PRN IM DECREASED GLUCOSE; Start 11/30/16 at 05:00 Glucose (Glutose) 15 gm Q15M PRN BUCCAL DECREASED GLUCOSE; Start 11/30/16 at 05 :00 Metoprolol Tartrate (Lopressor) 2.5 mg Q2H PRN IV heart rate over 110 Last administered on 12/17/16 06:57; Admin Dose 2.5 MG; Start 12/01/16 at 12:00 Collagenase (Santyl) 1 applic DAILY TOP Last administered on 12/18/16 09:13; Admin Dose 1 APPLIC; Start 12/02/16 at 12:00 Collagenase (Santyl) 1 applic DAILY PRN TOP PER WOUND CARE ORDERS; Start at 11:30 Metoprolol Tartrate (Lopressor) 50 mg BID GTB Last administered on 12/18/16 09: 13; Admin Dose 50 MG; Start 12/04/16 at 21:00 Famotidine (Pepcid) 20 mg DAILY GTB Last administered on 12/18/16 09:11; Admin Dose 20 MG; Start 12/05/16 at 09:00 Losartan Potassium (Cozaar) 25 mg BID PO Last administered on 12/18/16 09:13; Admin Dose 25 MG; Start 12/05/16 at 21:00 Hydralazine HCl 10 mg 10 mg Q6H PRN IV ELEVATED BLOOD PRESSURE Last administered on 12/13/16 18:26; Admin Dose 10 MG; Start 12/06/16 at 16:00 Vancomycin HCl 250 ml @ 125 mls/hr Q24H IVPB Last administered on 12/18/16 04: 58; Admin Dose 125 MLS/HR; Start 12/07/16 at 05:00 Ceftazidime/ Dextrose (Fortaz 2gm/50 ml (Pmx)) 50 ml @ 100 mls/hr Q8 IVPB Last administered on 12/18/16 06:32; Admin Dose 100 MLS/HR; Start 12/09/16 at 14 :00 Amikacin Sulfate AMIKACIN PER PHARMACY NOTE XX ; Start 12/10/16 at 19:00 Amikacin Sulfate/ Sodium Chloride (Amikacin/NS) 150 ml @ 150 mls/hr Q48H IVPB Last administered on 12/17/16 23:47; Admin Dose 150 MLS/HR; Start 12/15/16 at 22 :00 Ketoconazole (Nizoral Shampoo) 1 applic Q12 TOP Last administered on 12/18/16 09:12; Admin Dose 1 APPLIC; Start 12/14/16 at 21:00 Ketoconazole (Nizoral Cr) 1 applic BID TOP Last administered on 12/18/16 09:13 ; Admin Dose 1 APPLIC; Start 12/14/16 at 21:00 MARIA ELENA COLLADO December 18, 2016 10:54
[2016-12-18] MEDS ORDERED: POTASSIUM CHLORIDE 20 MEQ in SOD CHLORIDE 0.9% 100 ML IVPB ONE (12:00)
--- NOTE | 2016-12-18 12:58 | PN ---
DATE: 12/18/2016 INFECTIOUS DISEASE PROGRESS NOTE SUBJECTIVE: No events overnight. No fevers. The patient is lying comfortably in bed. LABORATORY DATA: WBC today 19.3, platelets 214, neutrophils 86.7, BUN 30, creatinine 0.47. MICROBIOLOGY: Urine culture from December 17 remains negative. INDWELLINGS: Trach, PEG, Cherry, PICC line. ANTIMICROBIALS: The patient remains on: 1. Amikacin. 2. Fortaz. 3. Vancomycin. PHYSICAL EXAMINATION: GENERAL: This is well-developed, fragile, elderly man who is in no distress. HEENT: Head atraumatic, normocephalic. Sclerae anicteric. Buccal mucosa dry. NECK: Supple. Tracheostomy present. CHEST: Rise symmetrical. Breath sounds clear, diminished to bases. HEART: S1, S2. ABDOMEN: Soft, bowel sounds present. EXTREMITIES: No cyanosis. ASSESSMENT: 1. Systemic inflammatory response syndrome with persistent leukocytosis. 2. Healthcare-associated pneumonia with sputum culture growing Pseudomonas aeruginosa and Providenc ia stuartii. 3. Sacral decubitus ulcer, improving. 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 5. Hypertension. 6. Dysphagia. PLAN: The patient remains stable on appropriate antimicrobials which we are going to continue. He is being followed by multiple consultants. Continue aggressive pulmonary toilet. Dictated By: ELI VALDEZ CAD ADMINISTRATOR for JANICE CASTILLO/MENDOZA Conf#: [id number] DID#: [id number]
--- NOTE | 2016-12-18 15:30 | PN ---
Date/Time of Note Date/Time of Note DATE: 12/18/16 TIME: 15:21 Assessment/Plan VTE Prophylaxis VTE Prophylaxis Intervention: SCD's Lines/Catheters IV Catheter Type (from Nrsg): PICC Line Central line still needed: Yes (IV abx , difficult peripheral access ) Urinary Cath still in place: Yes Reason Cath still needed: urinary retention Assessment/Plan Assessment/Plan 1. Sepsis, Bilateral Pneumonia, likely HCAP, CT chest with severe bilateral PNA and CT neck with OA. Polymicrobial and MDR organisms pt on three abx, IV vancomycin, amikacin and Ceftrazidiem d/w ID today to get final recommendations about IV abx plan 2. Chronic vent-dependent respiratory failure, stable on Vent, oxygenating well. Per family has been able to have some puree at subacute facility while on the vent? Continue Vancomycin, Ceftazidime and Amikacin. on Fio2 40%, Pulmonary has been following 3. Hypokalemia/Hypomagnesemia: KCl 20mEQ IV x 1 today 4. Severe anemia on admission, possible GI bleeding, but if so resolved now. Continue PPI. No evidence for active bleeding for now. Back on Iron supplement. 5. Elevated troponins in setting of a fib with RVR and sepsis, CAD , due to demand in the setting of atrial firbillatin with RVR HR controlled with Bblocker, up to 50 mg po bid. Appreciate Cardiology recommendations. No anticoagulation due to Anemia and GI bleeding 6. MRSA nares: Bactroban, on Vancomycin already 7. Sacral Decub, seems to be healing well per RN and wound care but cx polymicrobial with MDRO. Abx adjusted by ID and on wound care protocol. 8. Hypertension: Continue Metoprolol at 50 mg po bid and Losartan as long as BP tolerating. Prophylaxis: Continue SCDs and Famotidine Disposition: pt is on Fio2 40% with 3 abx on board including vancomycin, ceftazidime and Amikacin- discussed with ID today to get final Abx recommendations on plan of abx WBC still high, pt is pancultured, BP stable - ID recommended to wait for improving WBC count Patient is DNR Subjective 24 Hr Interval Summary Free Text/Dictation pt more tachycardic, Tachypnea, HR in 100-110s, RR in 35, spiked fever , pancultured Exam/Review of Systems Vital Signs Vitals Vital Signs Date Time Temp Pulse Resp B/P Pulse Ox O2 Delivery O2 Flow Rate FiO2 12/18/16 13:58 84 15 100 40 12/18/16 11:59 97.5 119/82 Intake and Output 12/17/16 12/17/16 12/18/16 15:00 23:00 07:00 Intake Total 560 ml 100 ml 1963 ml Output Total 1700 ml Balance 560 ml 100 ml 263 ml Exam GENERAL: This is a chronically ill-appearing, fragile, elderly man who is in no distress. HEENT: Head atraumatic, normocephalic. Sclerae anicteric. Buccal mucosa dry. NECK: Supple. Tracheostomy present. CHEST: Rise symmetrical. Breath sounds diminished to bases. HEART: S1, S2. ABDOMEN: Soft, bowel sounds present. EXTREMITIES: No cyanosis. Results Result Diagram: 12/18/16 0340 12/18/16 0340 Results 24 hrs Laboratory Tests Test 12/17/16 21:00 12/18/16 03:40 12/18/16 06:30 Amikacin Level Trough White Blood Count 19.3 H Red Blood Count 3.18 L Hemoglobin 8.8 L Hematocrit 29.0 L Mean Corpuscular Volume 91.2 Mean Corpuscular Hemoglobin 27.7 L Mean Corpuscular Hemoglobin Concent 30.3 L Red Cell Distribution Width 16.0 H Platelet Count 214 Mean Platelet Volume 11.2 H Neutrophils % 86.7 H Lymphocytes % 6.0 L Monocytes % 4.0 Eosinophils % 2.1 Basophils % 0.2 Nucleated Red Blood Cells % 0.0 Neutrophils # 16.8 H Lymphocytes # 1.2 Monocytes # 0.8 Eosinophils # 0.4 Basophils # 0.0 Nucleated Red Blood Cells # 0.0 Prothrombin Time 16.9 H Prothrombin Time Ratio 1.3 INR International Normalized Ratio 1.37 Activated Partial Thromboplast Time 35.2 H Sodium Level 139 Potassium Level 3.1 L Chloride Level 103 Carbon Dioxide Level 30 Anion Gap 9 Blood Urea Nitrogen 30 H Creatinine 0.47 L Glucose Level 142 Calcium Level 10.0 Total Bilirubin 0.0 L Direct Bilirubin 0.00 Indirect Bilirubin 0.0 Aspartate Amino Transf (AST/SGOT) 24 Alanine Aminotransferase (ALT/SGPT) 24 Alkaline Phosphatase 174 H Total Protein 7.5 Albumin 2.1 L Globulin 5.40 H Albumin/Globulin Ratio 0.38 Vancomycin Level Trough 14.9 Lab Scanned Report REFERENCE LAB Medications Medications Current Medications Acetaminophen (Tylenol Tab) 650 mg Q6H PRN PEG PAIN LEVEL 1-3 OR FEVER Last administered on 12/15/16 18:21; Admin Dose 650 MG; Start 11/30/16 at 05:00 Morphine Sulfate (morphine) 2 mg Q4H PRN IV PAIN LEVEL 7-10 Last administered on 12/18/16 09:14; Admin Dose 2 MG; Start 11/30/16 at 05:00 Miscellaneous Information 1 ea NOTE XX ; Start 11/30/16 at 05:00 Glucose (Glutose) 15 gm Q15M PRN PO DECREASED GLUCOSE; Start 11/30/16 at 05:00 Glucose (Glutose) 22.5 gm Q15M PRN PO DECREASED GLUCOSE; Start 11/30/16 at 05: 00 Dextrose (D50w Syringe) 25 ml Q15M PRN IV DECREASED GLUCOSE; Start 11/30/16 at 05:00 Dextrose (D50w Syringe) 50 ml Q15M PRN IV DECREASED GLUCOSE; Start 11/30/16 at 05:00 Glucagon (Glucagen) 1 mg Q15M PRN IM DECREASED GLUCOSE; Start 11/30/16 at 05:00 Glucose (Glutose) 15 gm Q15M PRN BUCCAL DECREASED GLUCOSE; Start 11/30/16 at 05 :00 Metoprolol Tartrate (Lopressor) 2.5 mg Q2H PRN IV heart rate over 110 Last administered on 12/17/16 06:57; Admin Dose 2.5 MG; Start 12/01/16 at 12:00 Collagenase (Santyl) 1 applic DAILY TOP Last administered on 12/18/16 09:13; Admin Dose 1 APPLIC; Start 12/02/16 at 12:00 Collagenase (Santyl) 1 applic DAILY PRN TOP PER WOUND CARE ORDERS; Start at 11:30 Metoprolol Tartrate (Lopressor) 50 mg BID GTB Last administered on 12/18/16 09: 13; Admin Dose 50 MG; Start 12/04/16 at 21:00 Famotidine (Pepcid) 20 mg DAILY GTB Last administered on 12/18/16 09:11; Admin Dose 20 MG; Start 12/05/16 at 09:00 Losartan Potassium (Cozaar) 25 mg BID PO Last administered on 12/18/16 09:13; Admin Dose 25 MG; Start 12/05/16 at 21:00 Hydralazine HCl 10 mg 10 mg Q6H PRN IV ELEVATED BLOOD PRESSURE Last administered on 12/13/16 18:26; Admin Dose 10 MG; Start 12/06/16 at 16:00 Vancomycin HCl 250 ml @ 125 mls/hr Q24H IVPB Last administered on 12/18/16 04: 58; Admin Dose 125 MLS/HR; Start 12/07/16 at 05:00 Ceftazidime/ Dextrose (Fortaz 2gm/50 ml (Pmx)) 50 ml @ 100 mls/hr Q8 IVPB Last administered on 12/18/16 13:11; Admin Dose 100 MLS/HR; Start 12/09/16 at 14 :00 Amikacin Sulfate AMIKACIN PER PHARMACY NOTE XX ; Start 12/10/16 at 19:00 Amikacin Sulfate/ Sodium Chloride (Amikacin/NS) 150 ml @ 150 mls/hr Q48H IVPB Last administered on 12/17/16 23:47; Admin Dose 150 MLS/HR; Start 12/15/16 at 22 :00 Ketoconazole (Nizoral Shampoo) 1 applic Q12 TOP Last administered on 12/18/16 09:12; Admin Dose 1 APPLIC; Start 12/14/16 at 21:00 Ketoconazole (Nizoral Cr) 1 applic BID TOP Last administered on 12/18/16 09:13 ; Admin Dose 1 APPLIC; Start 12/14/16 at 21:00 SU MURPHY MD December 18, 2016 15:30
[2016-12-19] VITALS (24 sets, daily range): BP systolic 99–149; BP diastolic 56–81; PULSE 81–100; RESP 15–21
[2016-12-19] MEDS: VANCOMYCIN 1 GM in NS 250 ML IVPB SCH (03:56)
[2016-12-19] MEDS: CEFTAZIDIME 2GM/50 ML (PMX) 50 ML IVPB SCH ×3 (06:14→21:17)
[2016-12-19] MEDS: IPRATROPIUM (HFA) 12.9 GM INHALER INH SCH ×2 (08:04→16:56)
[2016-12-19] MEDS: LEVALBUTEROL (HFA) 15 GM INHALER INH SCH ×2 (08:04→16:56)
[2016-12-19] MEDS: ACETAMINOPHEN 325 MG TAB PEG PRN (09:10)
[2016-12-19] MEDS: KETOCONAZOLE 2% 15 GM CR TOP SCH ×2 (09:10→23:04)
[2016-12-19] MEDS: KETOCONAZOLE 2% SHAMPOO 120 ML BTL TOP SCH ×2 (09:10→21:17)
[2016-12-19] MEDS: COLLAGENASE 30 GM TUBE TOP SCH (09:10)
[2016-12-19] MEDS: FAMOTIDINE 20 MG TAB GTB SCH (09:11)
[2016-12-19] MEDS: LOSARTAN 25 MG TAB PO SCH ×2 (09:11→21:18)
[2016-12-19] MEDS: METOPROLOL 25 MG TAB GTB SCH ×2 (09:11→21:18)
[2016-12-19 11:20] LABS: ADD SCAN DIFF NO
[2016-12-19 11:25] LABS: BASOPHILS % 0.2 % (0.0-2.0); EOSINOPHILS # 0.5 10^3/ul (0.0-0.5); EOSINOPHILS % 2.3 % (0.0-7.0); HEMOGLOBIN 8.4 g/dl (14.0-18.0); LYMPHOCYTES % 4.9 % (15.0-51.0); MEAN CORPUSCULAR HEMOGLOBIN 27.8 pg (29.0-33.0); MEAN CORPUSCULAR VOLUME 92.7 fl (82.0-101.0); MEAN PLATELET VOLUME 11.6 fl (7.4-10.4); MONOCYTE # 0.8 10^3/ul (0.3-0.9); MONOCYTES % 4.2 % (0.0-11.0); NEUTROPHIL # 17.7 10^3/ul (1.6-7.5); NEUTROPHILS % 87.4 % (39.0-77.0); PLATELET COUNT 208 10^3/UL (140-415); RED BLOOD COUNT 3.02 10^6/ul (4.70-6.10); RED CELL DISTRIBUTION WIDTH 16.2 % (11.5-14.5); WHITE BLOOD COUNT 20.2 10^3/ul (4.8-10.8)
--- NOTE | 2016-12-19 12:07 | CONS ---
Date/Time of Note Date/Time of Note DATE: 12/19/16 TIME: 12:06 Assessment/Plan Assessment/Plan Additional Assessment/Plan Ventilator settings; AC of 14, tidal volume 500, PEEP of 5, 30% FiO2. Assessment recommendations; 1. Patient admitted for severe right-sided pneumonia possibly aspiration with lung necrosis. 2. Chronic respiratory failure, due to quadriplegia. Patient remains ventilator dependent. 3. Persistent leukocytosis. Continue current treatment. Prognosis remains poor. Consultation Date/Type/Reason Admit Date/Time Nov 30, 2016 at 04:54 Initial Consult Date 12/01/16 Type of Consultation: pulmonary Referring Provider: CHARLETTE RUTHERFORD 24 HR Interval Summary Free Text/Dictation Patient condition remains stable. Has remained hemodynamically stable. General exam; elderly male, on ventilator via tracheostomy currently in no distress, awake and alert. Exam/Review of Systems Vital Signs Vitals Vital Signs Date Time Temp Pulse Resp B/P Pulse Ox O2 Delivery O2 Flow Rate FiO2 12/19/16 11:25 78 18 95 45 12/19/16 11:09 98.5 116/75 Intake and Output 12/18/16 12/18/16 12/19/16 15:00 23:00 07:00 Intake Total 1500 ml 1070 ml Output Total 3400 ml 1200 ml Balance -1900 ml -130 ml Exam HEENT exam; supple neck, no JVD. No lymphadenopathy. Midline trachea. No thyromegaly. Tracheostomy in place with clean insertion site. Patient is edentulous. Chest examined; left lung is clear to auscultation with diffuse crackles involving the right and. S1-S2 audible, no murmurs. Abdomen examination; soft, nontender. No organomegaly. G-tube in place. Bowel sounds are audible. Extremity examination; no peripheral edema. [employer] examination; patient is stable quadriplegia. Results Result Diagram: 12/19/16 1035 12/18/16 0340 Results 24 hrs Laboratory Tests Test 12/18/16 19:49 12/19/16 10:35 Bedside Glucose 120 White Blood Count 20.2 H Red Blood Count 3.02 L Hemoglobin 8.4 L Hematocrit 28.0 L Mean Corpuscular Volume 92.7 Mean Corpuscular Hemoglobin 27.8 L Mean Corpuscular Hemoglobin Concent 30.0 L Red Cell Distribution Width 16.2 H Platelet Count 208 Mean Platelet Volume 11.6 H Neutrophils % 87.4 H Lymphocytes % 4.9 L Monocytes % 4.2 Eosinophils % 2.3 Basophils % 0.2 Nucleated Red Blood Cells % 0.0 Neutrophils # 17.7 H Lymphocytes # 1.0 Monocytes # 0.8 Eosinophils # 0.5 Basophils # 0.0 Nucleated Red Blood Cells # 0.0 Medications Medications Current Medications Acetaminophen (Tylenol Tab) 650 mg Q6H PRN PEG PAIN LEVEL 1-3 OR FEVER Last administered on 12/19/16 09:10; Admin Dose 650 MG; Start 11/30/16 at 05:00 Morphine Sulfate (morphine) 2 mg Q4H PRN IV PAIN LEVEL 7-10 Last administered on 12/18/16 09:14; Admin Dose 2 MG; Start 11/30/16 at 05:00 Miscellaneous Information 1 ea NOTE XX ; Start 11/30/16 at 05:00 Glucose (Glutose) 15 gm Q15M PRN PO DECREASED GLUCOSE; Start 11/30/16 at 05:00 Glucose (Glutose) 22.5 gm Q15M PRN PO DECREASED GLUCOSE; Start 11/30/16 at 05: 00 Dextrose (D50w Syringe) 25 ml Q15M PRN IV DECREASED GLUCOSE; Start 11/30/16 at 05:00 Dextrose (D50w Syringe) 50 ml Q15M PRN IV DECREASED GLUCOSE; Start 11/30/16 at 05:00 Glucagon (Glucagen) 1 mg Q15M PRN IM DECREASED GLUCOSE; Start 11/30/16 at 05:00 Glucose (Glutose) 15 gm Q15M PRN BUCCAL DECREASED GLUCOSE; Start 11/30/16 at 05 :00 Metoprolol Tartrate (Lopressor) 2.5 mg Q2H PRN IV heart rate over 110 Last administered on 12/17/16 06:57; Admin Dose 2.5 MG; Start 12/01/16 at 12:00 Collagenase (Santyl) 1 applic DAILY TOP Last administered on 12/19/16 09:10; Admin Dose 1 APPLIC; Start 12/02/16 at 12:00 Collagenase (Santyl) 1 applic DAILY PRN TOP PER WOUND CARE ORDERS; Start at 11:30 Metoprolol Tartrate (Lopressor) 50 mg BID GTB Last administered on 12/19/16 09: 11; Admin Dose 50 MG; Start 12/04/16 at 21:00 Famotidine (Pepcid) 20 mg DAILY GTB Last administered on 12/19/16 09:11; Admin Dose 20 MG; Start 12/05/16 at 09:00 Losartan Potassium (Cozaar) 25 mg BID PO Last administered on 12/19/16 09:11; Admin Dose 25 MG; Start 12/05/16 at 21:00 Hydralazine HCl 10 mg 10 mg Q6H PRN IV ELEVATED BLOOD PRESSURE Last administered on 12/13/16 18:26; Admin Dose 10 MG; Start 12/06/16 at 16:00 Vancomycin HCl 250 ml @ 125 mls/hr Q24H IVPB Last administered on 12/19/16 03: 56; Admin Dose 125 MLS/HR; Start 12/07/16 at 05:00 Ceftazidime/ Dextrose (Fortaz 2gm/50 ml (Pmx)) 50 ml @ 100 mls/hr Q8 IVPB Last administered on 12/19/16 06:14; Admin Dose 100 MLS/HR; Start 12/09/16 at 14 :00 Amikacin Sulfate (Amikacin Iv Per Pharmacy) AMIKACIN PER PHARMACY NOTE XX ; Start 12/10/16 at 19:00 Ketoconazole (Nizoral Shampoo) 1 applic Q12 TOP Last administered on 12/19/16 09:10; Admin Dose 1 APPLIC; Start 12/14/16 at 21:00 Ketoconazole 1 applic 1 applic BID TOP Last administered on 12/19/16 09:10; Admin Dose 1 APPLIC; Start 12/14/16 at 21:00 Amikacin Sulfate/ Sodium Chloride (Amikacin/NS) 150 ml @ 150 mls/hr Q72H IVPB ; Start 12/21/16 at 00:00 MARIA ELENA COLLADO December 19, 2016 12:07
[2016-12-19 15:25] LABS: ALBUMIN 2.2 g/dl (3.3-4.9)
[2016-12-19 15:26] LABS: POTASSIUM 3.5 mmol/L (3.5-5.1)
[2016-12-19 15:28] LABS: ALBUMIN/GLOBULIN RATIO 0.4; BILIRUBIN,INDIRECT 0.1 mg/dl (0-1.1); BILIRUBIN,TOTAL 0.1 mg/dl (0.2-1.3); CREATININE 0.5 mg/dl (0.61-1.24); TOTAL PROTEIN 7.7 g/dl (6.1-8.1)
[2016-12-19 15:29] LABS: CALCIUM 10.1 mg/dl (8.4-10.2)
--- NOTE | 2016-12-19 18:30 | PN ---
Date/Time of Note Date/Time of Note DATE: 12/19/16 TIME: 18:29 Assessment/Plan VTE Prophylaxis VTE Prophylaxis Intervention: SCD's Lines/Catheters IV Catheter Type (from Nrsg): PICC Line Central line still needed: Yes (Iv ab ) Urinary Cath still in place: Yes Reason Cath still needed: urinary retention Assessment/Plan Assessment/Plan 1. Sepsis, Bilateral Pneumonia, likely HCAP, CT chest with severe bilateral PNA and CT neck with OA. Polymicrobial and MDR organisms pt on three abx, IV vancomycin, amikacin and Ceftrazidiem d/w ID today to get final recommendations about IV abx plan 2. Chronic vent-dependent respiratory failure, stable on Vent, oxygenating well. Per family has been able to have some puree at subacute facility while on the vent? Continue Vancomycin, Ceftazidime and Amikacin. on Fio2 40%, Pulmonary has been following 3. Hypokalemia/Hypomagnesemia: KCl 20mEQ IV x 1 today 4. Severe anemia on admission, possible GI bleeding, but if so resolved now. Continue PPI. No evidence for active bleeding for now. Back on Iron supplement. 5. Elevated troponins in setting of a fib with RVR and sepsis, CAD , due to demand in the setting of atrial firbillatin with RVR HR controlled with Bblocker, up to 50 mg po bid. Appreciate Cardiology recommendations. No anticoagulation due to Anemia and GI bleeding 6. MRSA nares: Bactroban, on Vancomycin already 7. Sacral Decub, seems to be healing well per RN and wound care but cx polymicrobial with MDRO. Abx adjusted by ID and on wound care protocol. 8. Hypertension: Continue Metoprolol at 50 mg po bid and Losartan as long as BP tolerating. Prophylaxis: Continue SCDs and Famotidine Disposition: pt is on Fio2 40% with 3 abx on board including vancomycin, ceftazidime and Amikacin- discussed with ID today to get final Abx recommendations on plan of abx WBC still high, pt is pancultured, BP stable - ID recommended to wait for improving WBC count cx negative so far, plan for WBC scan as per ID Patient is DNR Subjective 24 Hr Interval Summary Free Text/Dictation WBC still high, tachypneic, tachycadic Exam/Review of Systems Vital Signs Vitals Vital Signs Date Time Temp Pulse Resp B/P Pulse Ox O2 Delivery O2 Flow Rate FiO2 12/19/16 17:01 93 12/19/16 16:54 19 96 45 12/19/16 15:47 97.8 129/71 Intake and Output 12/18/16 12/18/16 12/19/16 15:00 23:00 07:00 Intake Total 1500 ml 1070 ml Output Total 3400 ml 1200 ml Balance -1900 ml -130 ml Results Result Diagram: 12/19/16 1035 12/19/16 1500 Results 24 hrs Laboratory Tests Test 12/18/16 19:49 12/19/16 10:35 12/19/16 15:00 Bedside Glucose 120 White Blood Count 20.2 H Red Blood Count 3.02 L Hemoglobin 8.4 L Hematocrit 28.0 L Mean Corpuscular Volume 92.7 Mean Corpuscular Hemoglobin 27.8 L Mean Corpuscular Hemoglobin Concent 30.0 L Red Cell Distribution Width 16.2 H Platelet Count 208 Mean Platelet Volume 11.6 H Neutrophils % 87.4 H Lymphocytes % 4.9 L Monocytes % 4.2 Eosinophils % 2.3 Basophils % 0.2 Nucleated Red Blood Cells % 0.0 Neutrophils # 17.7 H Lymphocytes # 1.0 Monocytes # 0.8 Eosinophils # 0.5 Basophils # 0.0 Nucleated Red Blood Cells # 0.0 Sodium Level 137 Potassium Level 3.5 Chloride Level 100 Carbon Dioxide Level 32 H Anion Gap 9 Blood Urea Nitrogen 31 H Creatinine 0.50 L Glucose Level 136 Calcium Level 10.1 Total Bilirubin 0.1 L Direct Bilirubin 0.00 Indirect Bilirubin 0.1 Aspartate Amino Transf (AST/SGOT) 40 # Alanine Aminotransferase (ALT/SGPT) 31 Alkaline Phosphatase 201 H Total Protein 7.7 Albumin 2.2 L Globulin 5.50 H Albumin/Globulin Ratio 0.40 Medications Medications Current Medications Acetaminophen (Tylenol Tab) 650 mg Q6H PRN PEG PAIN LEVEL 1-3 OR FEVER Last administered on 12/19/16 09:10; Admin Dose 650 MG; Start 11/30/16 at 05:00 Morphine Sulfate (morphine) 2 mg Q4H PRN IV PAIN LEVEL 7-10 Last administered on 12/18/16 09:14; Admin Dose 2 MG; Start 11/30/16 at 05:00 Miscellaneous Information 1 ea NOTE XX ; Start 11/30/16 at 05:00 Glucose (Glutose) 15 gm Q15M PRN PO DECREASED GLUCOSE; Start 11/30/16 at 05:00 Glucose (Glutose) 22.5 gm Q15M PRN PO DECREASED GLUCOSE; Start 11/30/16 at 05: 00 Dextrose (D50w Syringe) 25 ml Q15M PRN IV DECREASED GLUCOSE; Start 11/30/16 at 05:00 Dextrose (D50w Syringe) 50 ml Q15M PRN IV DECREASED GLUCOSE; Start 11/30/16 at 05:00 Glucagon (Glucagen) 1 mg Q15M PRN IM DECREASED GLUCOSE; Start 11/30/16 at 05:00 Glucose (Glutose) 15 gm Q15M PRN BUCCAL DECREASED GLUCOSE; Start 11/30/16 at 05 :00 Metoprolol Tartrate (Lopressor) 2.5 mg Q2H PRN IV heart rate over 110 Last administered on 12/17/16 06:57; Admin Dose 2.5 MG; Start 12/01/16 at 12:00 Collagenase (Santyl) 1 applic DAILY TOP Last administered on 12/19/16 09:10; Admin Dose 1 APPLIC; Start 12/02/16 at 12:00 Collagenase (Santyl) 1 applic DAILY PRN TOP PER WOUND CARE ORDERS; Start at 11:30 Metoprolol Tartrate (Lopressor) 50 mg BID GTB Last administered on 12/19/16 09: 11; Admin Dose 50 MG; Start 12/04/16 at 21:00 Famotidine (Pepcid) 20 mg DAILY GTB Last administered on 12/19/16 09:11; Admin Dose 20 MG; Start 12/05/16 at 09:00 Losartan Potassium (Cozaar) 25 mg BID PO Last administered on 12/19/16 09:11; Admin Dose 25 MG; Start 12/05/16 at 21:00 Hydralazine HCl 10 mg 10 mg Q6H PRN IV ELEVATED BLOOD PRESSURE Last administered on 12/13/16 18:26; Admin Dose 10 MG; Start 12/06/16 at 16:00 Vancomycin HCl 250 ml @ 125 mls/hr Q24H IVPB Last administered on 12/19/16 03: 56; Admin Dose 125 MLS/HR; Start 12/07/16 at 05:00 Ceftazidime/ Dextrose (Fortaz 2gm/50 ml (Pmx)) 50 ml @ 100 mls/hr Q8 IVPB Last administered on 12/19/16 12:48; Admin Dose 100 MLS/HR; Start 12/09/16 at 14 :00 Amikacin Sulfate (Amikacin Iv Per Pharmacy) AMIKACIN PER PHARMACY NOTE XX ; Start 12/10/16 at 19:00 Ketoconazole (Nizoral Shampoo) 1 applic Q12 TOP Last administered on 12/19/16 09:10; Admin Dose 1 APPLIC; Start 12/14/16 at 21:00 Ketoconazole 1 applic 1 applic BID TOP Last administered on 12/19/16 09:10; Admin Dose 1 APPLIC; Start 12/14/16 at 21:00 Amikacin Sulfate/ Sodium Chloride (Amikacin/NS) 150 ml @ 150 mls/hr Q72H IVPB ; Start 12/21/16 at 00:00 SU MURPHY MD December 19, 2016 18:30
--- NOTE | 2016-12-19 21:58 | CONS ---
Date/Time of Note Date/Time of Note DATE: 12/19/16 TIME: 21:55 Assessment/Plan Assessment/Plan Chief Complaint/Hosp Course SUBJECTIVE: No events overnight. No fevers. The patient is lethargic, lying comfortably in bed. LABORATORY DATA: WBC today 20.2 MICROBIOLOGY: Urine culture from December 17 remains negative. INDWELLINGS: Trach, PEG, Cherry, PICC line. ANTIMICROBIALS: The patient remains on: 1. Amikacin. 2. Fortaz. 3. Vancomycin. PHYSICAL EXAMINATION: GENERAL: This is well-developed, fragile, elderly man who is in no distress. HEENT: Head atraumatic, normocephalic. Sclerae anicteric. Buccal mucosa dry. NECK: Supple. Tracheostomy present. CHEST: Rise symmetrical. Breath sounds clear, diminished to bases. HEART: S1, S2. ABDOMEN: Soft, bowel sounds present. EXTREMITIES: No cyanosis. ASSESSMENT: 1. Systemic inflammatory response syndrome with persistent leukocytosis. 2. Healthcare-associated pneumonia with sputum culture growing Pseudomonas aeruginosa and Providencia stuartii. 3. Sacral decubitus ulcer, improving. 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 5. Hypertension. 6. Dysphagia. PLAN: Remains unchanged, with persistent leukocytosis, will order WBC labeled nuclear scan and procalcitonin level DW staff DW Dr Vincenzo Rudd Problems: Consultation Date/Type/Reason Admit Date/Time Nov 30, 2016 at 04:54 Initial Consult Date 12/01/16 Type of Consultation: ID Referring Provider: CHARLETTE RUTHERFORD Exam/Review of Systems Vital Signs Vitals Vital Signs Date Time Temp Pulse Resp B/P Pulse Ox O2 Delivery O2 Flow Rate FiO2 12/19/16 20:35 99 12/19/16 20:03 97.6 17 132/61 97 12/19/16 16:54 45 Intake and Output 12/18/16 12/18/16 12/19/16 14:59 22:59 06:59 Intake Total 1500 ml 1070 ml Output Total 3400 ml 1200 ml Balance -1900 ml -130 ml Results Result Diagram: 12/19/16 1035 12/19/16 1500 Results 24 hrs Laboratory Tests Test 12/19/16 10:35 12/19/16 15:00 White Blood Count 20.2 H Red Blood Count 3.02 L Hemoglobin 8.4 L Hematocrit 28.0 L Mean Corpuscular Volume 92.7 Mean Corpuscular Hemoglobin 27.8 L Mean Corpuscular Hemoglobin Concent 30.0 L Red Cell Distribution Width 16.2 H Platelet Count 208 Mean Platelet Volume 11.6 H Neutrophils % 87.4 H Lymphocytes % 4.9 L Monocytes % 4.2 Eosinophils % 2.3 Basophils % 0.2 Nucleated Red Blood Cells % 0.0 Neutrophils # 17.7 H Lymphocytes # 1.0 Monocytes # 0.8 Eosinophils # 0.5 Basophils # 0.0 Nucleated Red Blood Cells # 0.0 Sodium Level 137 Potassium Level 3.5 Chloride Level 100 Carbon Dioxide Level 32 H Anion Gap 9 Blood Urea Nitrogen 31 H Creatinine 0.50 L Glucose Level 136 Calcium Level 10.1 Total Bilirubin 0.1 L Direct Bilirubin 0.00 Indirect Bilirubin 0.1 Aspartate Amino Transf (AST/SGOT) 40 # Alanine Aminotransferase (ALT/SGPT) 31 Alkaline Phosphatase 201 H Total Protein 7.7 Albumin 2.2 L Globulin 5.50 H Albumin/Globulin Ratio 0.40 Medications Medications Current Medications Acetaminophen (Tylenol Tab) 650 mg Q6H PRN PEG PAIN LEVEL 1-3 OR FEVER Last administered on 12/19/16 09:10; Admin Dose 650 MG; Start 11/30/16 at 05:00 Morphine Sulfate (morphine) 2 mg Q4H PRN IV PAIN LEVEL 7-10 Last administered on 12/18/16 09:14; Admin Dose 2 MG; Start 11/30/16 at 05:00 Miscellaneous Information 1 ea NOTE XX ; Start 11/30/16 at 05:00 Glucose (Glutose) 15 gm Q15M PRN PO DECREASED GLUCOSE; Start 11/30/16 at 05:00 Glucose (Glutose) 22.5 gm Q15M PRN PO DECREASED GLUCOSE; Start 11/30/16 at 05: 00 Dextrose (D50w Syringe) 25 ml Q15M PRN IV DECREASED GLUCOSE; Start 11/30/16 at 05:00 Dextrose (D50w Syringe) 50 ml Q15M PRN IV DECREASED GLUCOSE; Start 11/30/16 at 05:00 Glucagon (Glucagen) 1 mg Q15M PRN IM DECREASED GLUCOSE; Start 11/30/16 at 05:00 Glucose (Glutose) 15 gm Q15M PRN BUCCAL DECREASED GLUCOSE; Start 11/30/16 at 05 :00 Metoprolol Tartrate (Lopressor) 2.5 mg Q2H PRN IV heart rate over 110 Last administered on 12/17/16 06:57; Admin Dose 2.5 MG; Start 12/01/16 at 12:00 Collagenase (Santyl) 1 applic DAILY TOP Last administered on 12/19/16 09:10; Admin Dose 1 APPLIC; Start 12/02/16 at 12:00 Collagenase (Santyl) 1 applic DAILY PRN TOP PER WOUND CARE ORDERS; Start at 11:30 Metoprolol Tartrate (Lopressor) 50 mg BID GTB Last administered on 12/19/16 21: 18; Admin Dose 50 MG; Start 12/04/16 at 21:00 Famotidine (Pepcid) 20 mg DAILY GTB Last administered on 12/19/16 09:11; Admin Dose 20 MG; Start 12/05/16 at 09:00 Losartan Potassium (Cozaar) 25 mg BID PO Last administered on 12/19/16 21:18; Admin Dose 25 MG; Start 12/05/16 at 21:00 Hydralazine HCl 10 mg 10 mg Q6H PRN IV ELEVATED BLOOD PRESSURE Last administered on 12/13/16 18:26; Admin Dose 10 MG; Start 12/06/16 at 16:00 Vancomycin HCl 250 ml @ 125 mls/hr Q24H IVPB Last administered on 12/19/16 03: 56; Admin Dose 125 MLS/HR; Start 12/07/16 at 05:00 Ceftazidime/ Dextrose (Fortaz 2gm/50 ml (Pmx)) 50 ml @ 100 mls/hr Q8 IVPB Last administered on 12/19/16 21:17; Admin Dose 100 MLS/HR; Start 12/09/16 at 14 :00 Amikacin Sulfate (Amikacin Iv Per Pharmacy) AMIKACIN PER PHARMACY NOTE XX ; Start 12/10/16 at 19:00 Ketoconazole (Nizoral Shampoo) 1 applic Q12 TOP Last administered on 12/19/16 21:17; Admin Dose 1 APPLIC; Start 12/14/16 at 21:00 Ketoconazole 1 applic 1 applic BID TOP Last administered on 12/19/16 09:10; Admin Dose 1 APPLIC; Start 12/14/16 at 21:00 Amikacin Sulfate/ Sodium Chloride (Amikacin/NS) 150 ml @ 150 mls/hr Q72H IVPB ; Start 12/21/16 at 00:00 ELI VALDEZ NP December 19, 2016 21:58
[2016-12-20] VITALS (24 sets, daily range): BP systolic 116–143; BP diastolic 58–77; PULSE 77–100; RESP 14–22
[2016-12-20] MEDS: IPRATROPIUM (HFA) 12.9 GM INHALER INH SCH ×4 (00:30→18:08)
[2016-12-20] MEDS: LEVALBUTEROL (HFA) 15 GM INHALER INH SCH ×4 (00:30→18:08)
[2016-12-20] MEDS: VANCOMYCIN 1 GM in NS 250 ML IVPB SCH (04:09)
[2016-12-20] MEDS: CEFTAZIDIME 2GM/50 ML (PMX) 50 ML IVPB SCH ×3 (05:57→21:38)
[2016-12-20 06:35] LABS: ADD SCAN DIFF NO
[2016-12-20 06:40] LABS: ABNORMAL IP MESSAGE 1; BASOPHIL # 0.1 10^3/ul (0.0-0.1); BASOPHILS % 0.2 % (0.0-2.0); EOSINOPHILS # 0.5 10^3/ul (0.0-0.5); EOSINOPHILS % 1.9 % (0.0-7.0); HEMATOCRIT 27.6 % (42.0-52.0); HEMOGLOBIN 8.4 g/dl (14.0-18.0); LYMPHOCYTES % 4.2 % (15.0-51.0); MEAN CORPUSCULAR HEMOGLOBIN 27.8 pg (29.0-33.0); MEAN CORPUSCULAR HGB CONC 30.4 g/dl (32.0-37.0); MEAN CORPUSCULAR VOLUME 91.4 fl (82.0-101.0); MEAN PLATELET VOLUME 11.9 fl (7.4-10.4); MONOCYTE # 0.9 10^3/ul (0.3-0.9); MONOCYTES % 3.7 % (0.0-11.0); NEUTROPHIL # 22.2 10^3/ul (1.6-7.5); NEUTROPHILS % 89.3 % (39.0-77.0); PLATELET COUNT 214 10^3/UL (140-415); RED BLOOD COUNT 3.02 10^6/ul (4.70-6.10); RED CELL DISTRIBUTION WIDTH 16.6 % (11.5-14.5); WHITE BLOOD COUNT 24.8 10^3/ul (4.8-10.8)
[2016-12-20 07:22] LABS: INR 1.33; PROTIME 16.6 Sec (12.2-14.2); PT RATIO 1.3
[2016-12-20 07:24] LABS: PARTIAL THROMBOPLASTIN TIME 36.9 Sec (25.0-35.0)
[2016-12-20 07:33] LABS: CALCIUM 10.1 mg/dl (8.4-10.2); CREATININE 0.45 mg/dl (0.61-1.24); POTASSIUM 3.4 mmol/L (3.5-5.1)
[2016-12-20] MEDS: FAMOTIDINE 20 MG TAB GTB SCH (08:41)
[2016-12-20] MEDS: KETOCONAZOLE 2% SHAMPOO 120 ML BTL TOP SCH ×2 (08:41→20:31)
[2016-12-20] MEDS: ACETAMINOPHEN 325 MG TAB PEG PRN (08:41)
[2016-12-20] MEDS: LOSARTAN 25 MG TAB PO SCH ×2 (08:41→20:31)
[2016-12-20] MEDS: METOPROLOL 25 MG TAB GTB SCH ×2 (08:41→20:30)
[2016-12-20] MEDS: KETOCONAZOLE 2% 15 GM CR TOP SCH ×2 (08:41→20:43)
[2016-12-20] MEDS: COLLAGENASE 30 GM TUBE TOP SCH (08:42)
--- NOTE | 2016-12-20 11:17 | CONS ---
Date/Time of Note Date/Time of Note DATE: 12/20/16 TIME: 11:15 Assessment/Plan Assessment/Plan Additional Assessment/Plan Ventilator settings; AC of 14, tidal volume 500, PEEP of 5, 35% FiO2. Assessment recommendations; 1. Patient admitted for severe right-sided pneumonia possibly aspiration with persistent leukocytosis, currently on broad-spectrum antibiotic coverage. 2. Chronic respiratory failure due to quadriplegia. 3. Patient remains ventilator dependent. Continue current treatment. Prognosis is poor. Consultation Date/Type/Reason Admit Date/Time Nov 30, 2016 at 04:54 Initial Consult Date 12/01/16 Type of Consultation: Pulmonary Referring Provider: CHARLETTE RUTHERFORD 24 HR Interval Summary Free Text/Dictation Patient condition remains stable. Has remained hemodynamically stable. Patient remains awake alert. General exam; elderly male, on ventilator via tracheostomy currently in no distress. Exam/Review of Systems Vital Signs Vitals Vital Signs Date Time Temp Pulse Resp B/P Pulse Ox O2 Delivery O2 Flow Rate FiO2 12/20/16 10:59 97.9 78 18 116/65 97 12/20/16 07:38 35 Intake and Output 12/19/16 12/19/16 12/20/16 15:00 23:00 07:00 Intake Total 850 ml 1370 ml Output Total 1000 ml 1000 ml Balance -150 ml 370 ml Exam HEENT exam is; supple neck, no JVD. No lymphadenopathy. Midline trachea. No thyromegaly. Tracheostomy in place. She is edentulous. Chest examination; left lung is clear to auscultation with diffuse crackles involving the right lung. S1-S2 audible, no murmurs. Regular rhythm. Abdomen examination; soft, G-tube in place. No organomegaly. Nontender. Bowel sounds audible. Extremity examination; no peripheral edema. 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 Results Result Diagram: 12/20/16 0555 12/20/16 0555 Results 24 hrs Laboratory Tests Test 12/19/16 15:00 12/20/16 05:05 12/20/16 05:55 Sodium Level 137 136 Potassium Level 3.5 3.4 L Chloride Level 100 102 Carbon Dioxide Level 32 H 32 H Anion Gap 9 5 L Blood Urea Nitrogen 31 H 29 H Creatinine 0.50 L 0.45 L Glucose Level 136 118 Calcium Level 10.1 10.1 Total Bilirubin 0.1 L Direct Bilirubin 0.00 Indirect Bilirubin 0.1 Aspartate Amino Transf (AST/SGOT) 40 # Alanine Aminotransferase (ALT/SGPT) 31 Alkaline Phosphatase 201 H Total Protein 7.7 Albumin 2.2 L Globulin 5.50 H Albumin/Globulin Ratio 0.40 Lactic Acid Level 1.3 White Blood Count 24.8 #H Red Blood Count 3.02 L Hemoglobin 8.4 L Hematocrit 27.6 L Mean Corpuscular Volume 91.4 Mean Corpuscular Hemoglobin 27.8 L Mean Corpuscular Hemoglobin Concent 30.4 L Red Cell Distribution Width 16.6 H Platelet Count 214 Mean Platelet Volume 11.9 H Neutrophils % 89.3 H Lymphocytes % 4.2 L Monocytes % 3.7 Eosinophils % 1.9 Basophils % 0.2 Nucleated Red Blood Cells % 0.0 Neutrophils # 22.2 H Lymphocytes # 1.0 Monocytes # 0.9 Eosinophils # 0.5 Basophils # 0.1 Nucleated Red Blood Cells # 0.0 Prothrombin Time 16.6 H Prothrombin Time Ratio 1.3 INR International Normalized Ratio 1.33 Activated Partial Thromboplast Time 36.9 H Medications Medications Current Medications Acetaminophen (Tylenol Tab) 650 mg Q6H PRN PEG PAIN LEVEL 1-3 OR FEVER Last administered on 12/20/16 08:41; Admin Dose 650 MG; Start 11/30/16 at 05:00 Morphine Sulfate (morphine) 2 mg Q4H PRN IV PAIN LEVEL 7-10 Last administered on 12/18/16 09:14; Admin Dose 2 MG; Start 11/30/16 at 05:00 Miscellaneous Information 1 ea NOTE XX ; Start 11/30/16 at 05:00 Glucose (Glutose) 15 gm Q15M PRN PO DECREASED GLUCOSE; Start 11/30/16 at 05:00 Glucose (Glutose) 22.5 gm Q15M PRN PO DECREASED GLUCOSE; Start 11/30/16 at 05: 00 Dextrose (D50w Syringe) 25 ml Q15M PRN IV DECREASED GLUCOSE; Start 11/30/16 at 05:00 Dextrose (D50w Syringe) 50 ml Q15M PRN IV DECREASED GLUCOSE; Start 11/30/16 at 05:00 Glucagon (Glucagen) 1 mg Q15M PRN IM DECREASED GLUCOSE; Start 11/30/16 at 05:00 Glucose (Glutose) 15 gm Q15M PRN BUCCAL DECREASED GLUCOSE; Start 11/30/16 at 05 :00 Metoprolol Tartrate (Lopressor) 2.5 mg Q2H PRN IV heart rate over 110 Last administered on 12/17/16 06:57; Admin Dose 2.5 MG; Start 12/01/16 at 12:00 Collagenase (Santyl) 1 applic DAILY TOP Last administered on 12/20/16 08:42; Admin Dose 1 APPLIC; Start 12/02/16 at 12:00 Collagenase (Santyl) 1 applic DAILY PRN TOP PER WOUND CARE ORDERS; Start at 11:30 Metoprolol Tartrate (Lopressor) 50 mg BID GTB Last administered on 12/20/16 08: 41; Admin Dose 50 MG; Start 12/04/16 at 21:00 Famotidine (Pepcid) 20 mg DAILY GTB Last administered on 12/20/16 08:41; Admin Dose 20 MG; Start 12/05/16 at 09:00 Losartan Potassium (Cozaar) 25 mg BID PO Last administered on 12/20/16 08:41; Admin Dose 25 MG; Start 12/05/16 at 21:00 Hydralazine HCl 10 mg 10 mg Q6H PRN IV ELEVATED BLOOD PRESSURE Last administered on 12/13/16 18:26; Admin Dose 10 MG; Start 12/06/16 at 16:00 Vancomycin HCl 250 ml @ 125 mls/hr Q24H IVPB Last administered on 12/20/16 04: 09; Admin Dose 125 MLS/HR; Start 12/07/16 at 05:00 Ceftazidime/ Dextrose (Fortaz 2gm/50 ml (Pmx)) 50 ml @ 100 mls/hr Q8 IVPB Last administered on 12/20/16 05:57; Admin Dose 100 MLS/HR; Start 12/09/16 at 14 :00 Amikacin Sulfate (Amikacin Iv Per Pharmacy) AMIKACIN PER PHARMACY NOTE XX ; Start 12/10/16 at 19:00 Ketoconazole (Nizoral Shampoo) 1 applic Q12 TOP Last administered on 12/20/16 08:41; Admin Dose 1 APPLIC; Start 12/14/16 at 21:00 Ketoconazole 1 applic 1 applic BID TOP Last administered on 12/20/16t 08:41; Admin Dose 1 APPLIC; Start 12/14/16 at 21:00 Amikacin Sulfate/ Sodium Chloride (Amikacin/NS) 150 ml @ 150 mls/hr Q72H IVPB ; Start 12/21/16 at 00:00 MARIA ELENA COLLADO December 20, 2016 11:17
--- NOTE | 2016-12-20 13:41 | PN ---
DATE: 12/20/2016 INFECTIOUS DISEASE PROGRESS NOTE SUBJECTIVE: No acute changes, per report. No fevers. The patient is lying comfortably in bed. LABORATORY: WBC today 24.8, H and H 8.4 and 27.6, platelets 214, neutrophils 89.3. BUN 29, creatin ine 0.45. Lactic acid 1.3. Normal bilirubin and LFTs from yesterday. Alkaline phosphatase 201. MICROBIOLOGY: Blood and urine cultures since December 17 negative. Stool for C. diff negative. INDWELLINGS: Trach, PEG, Cherry. ANTIMICROBIALS: The patient is on: 1. Amikacin. 2. Fortaz 3. Vancomycin. PHYSICAL EXAMINATION: GENERAL: This is a chronically ill-appearing, elderly man, who is in no distress. HEENT: Head atraumatic, normocephalic. Sclerae anicteric. Buccal mucosa dry. NECK: Supple. Tracheostomy present. CHEST: Chest rise is symmetrical. Breath sounds diminished to the bases. HEART: S1, S2. ABDOMEN: Soft, bowel tones present. EXTREMITIES: Without cyanosis. ASSESSMENT: 1. Persistent leukocytosis. 2. Healthcare-associated pneumonia. 3. Sacral decubitus. 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 5. Dysphagia. 6. Hypertension. 7. Chronic respiratory failure. PLAN: The patient remains clinically unchanged, again, with ongoing leukocytosis that is getting wo rse. Lactic acid was ordered yesterday, which is within normal limits. Pending procalcitonin level . Pending WBC labeled nuclear scan. Will add empiric antifungal coverage. Dictated By: ELI VALDEZ MAILING SECTION CLERK for JANICE CASTILLO/MENDOZA Conf#: [id number] DID#: [id number]
[2016-12-20] MEDS: FLUCONAZOLE 100 MG TAB PO SCH (14:18)
--- NOTE | 2016-12-20 16:46 | PN ---
Date/Time of Note Date/Time of Note DATE: 12/20/16 TIME: 16:43 Assessment/Plan VTE Prophylaxis VTE Prophylaxis Intervention: SCD's Lines/Catheters IV Catheter Type (from Nrs): PICC Line Central line still needed: Yes (IV abx for sepsis and polymicrobial infection ) Urinary Cath still in place: Yes Reason Cath still needed: skin wounds contaminated by urine, other (indicate) Assessment/Plan Assessment/Plan 1. Sepsis, Bilateral Pneumonia, likely HCAP, CT chest with severe bilateral PNA and CT neck with OA. Polymicrobial and MDR organisms pt on three abx, IV vancomycin, amikacin and Ceftrazidiem 2. Chronic vent-dependent respiratory failure, stable on Vent, oxygenating well. on Fio2 35%, Pulmonary has been following 3. Hypokalemia/Hypomagnesemia: replace as needed 4. Severe anemia on admission, possible GI bleeding, but if so resolved now. Continue PPI. No evidence for active bleeding for now. Back on Iron supplement. 5. Elevated troponins in setting of a fib with RVR and sepsis, CAD , due to demand in the setting of atrial firbillatin with RVR HR controlled with Bblocker Appreciate Cardiology recommendations. No anticoagulation due to Anemia and GI bleeding 6. MRSA nares: Bactroban, on Vancomycin already 7. Sacral Decub, seems to be healing well per RN and wound care but cx polymicrobial with MDRO. Abx adjusted by ID and on wound care protocol. 8. Hypertension: Continue Metoprolol at 50 mg po bid and Losartan as long as BP tolerating. Prophylaxis: Continue SCDs and Famotidine Disposition: pt is on Fio2 35% with 3 abx on board including vancomycin, ceftazidime and Amikacin- WBC trended up to 24.8- Recenlty pancultured- All cx negative so far, plan for WBC scan today Patient is DNR Subjective 24 Hr Interval Summary Free Text/Dictation WBC count jumped to 24.8, pt tachycardic, Tachypneic, non verbal Exam/Review of Systems Vital Signs Vitals Vital Signs Date Time Temp Pulse Resp B/P Pulse Ox O2 Delivery O2 Flow Rate FiO2 12/20/16 15:29 98.2 88 22 122/68 95 12/20/16 11:30 35 Intake and Output 12/19/16 12/19/16 12/20/16 15:00 23:00 07:00 Intake Total 850 ml 1370 ml Output Total 1000 ml 1000 ml Balance -150 ml 370 ml Exam GENERAL: This is a chronically ill-appearing, fragile, elderly man who is in no distress. HEENT: Head atraumatic, normocephalic. Sclerae anicteric. Buccal mucosa dry. NECK: Supple. Tracheostomy present. CHEST: Rise symmetrical. Breath sounds diminished to bases. HEART: S1, S2. ABDOMEN: Soft, bowel sounds present. EXTREMITIES: No cyanosis. Results Result Diagram: 12/20/1655412/20/16 0555 Results 24 hrs Laboratory Tests Test 12/20/16 05:05 12/20/16 05:55 Lactic Acid Level 1.3 White Blood Count 24.8 #H Red Blood Count 3.02 L Hemoglobin 8.4 L Hematocrit 27.6 L Mean Corpuscular Volume 91.4 Mean Corpuscular Hemoglobin 27.8 L Mean Corpuscular Hemoglobin Concent 30.4 L Red Cell Distribution Width 16.6 H Platelet Count 214 Mean Platelet Volume 11.9 H Neutrophils % 89.3 H Lymphocytes % 4.2 L Monocytes % 3.7 Eosinophils % 1.9 Basophils % 0.2 Nucleated Red Blood Cells % 0.0 Neutrophils # 22.2 H Lymphocytes # 1.0 Monocytes # 0.9 Eosinophils # 0.5 Basophils # 0.1 Nucleated Red Blood Cells # 0.0 Prothrombin Time 16.6 H Prothrombin Time Ratio 1.3 INR International Normalized Ratio 1.33 Activated Partial Thromboplast Time 36.9 H Sodium Level 136 Potassium Level 3.4 L Chloride Level 102 Carbon Dioxide Level 32 H Anion Gap 5 L Blood Urea Nitrogen 29 H Creatinine 0.45 L Glucose Level 118 Calcium Level 10.1 Medications Medications Current Medications Acetaminophen (Tylenol Tab) 650 mg Q6H PRN PEG PAIN LEVEL 1-3 OR FEVER Last administered on 12/20/16 08:41; Admin Dose 650 MG; Start 11/30/16 at 05:00 Morphine Sulfate (morphine) 2 mg Q4H PRN IV PAIN LEVEL 7-10 Last administered on 12/18/16 09:14; Admin Dose 2 MG; Start 11/30/16 at 05:00 Miscellaneous Information 1 ea NOTE XX ; Start 11/30/16 at 05:00 Glucose (Glutose) 15 gm Q15M PRN PO DECREASED GLUCOSE; Start 11/30/16 at 05:00 Glucose (Glutose) 22.5 gm Q15M PRN PO DECREASED GLUCOSE; Start 11/30/16 at 05: 00 Dextrose (D50w Syringe) 25 ml Q15M PRN IV DECREASED GLUCOSE; Start 11/30/16 at 05:00 Dextrose (D50w Syringe) 50 ml Q15M PRN IV DECREASED GLUCOSE; Start 11/30/16 at 05:00 Glucagon (Glucagen) 1 mg Q15M PRN IM DECREASED GLUCOSE; Start 11/30/16 at 05:00 Glucose (Glutose) 15 gm Q15M PRN BUCCAL DECREASED GLUCOSE; Start 11/30/16 at 05 :00 Metoprolol Tartrate (Lopressor) 2.5 mg Q2H PRN IV heart rate over 110 Last administered on 12/17/16 06:57; Admin Dose 2.5 MG; Start 12/01/16 at 12:00 Collagenase (Santyl) 1 applic DAILY TOP Last administered on 12/20/16 08:42; Admin Dose 1 APPLIC; Start 12/02/16 at 12:00 Collagenase (Santyl) 1 applic DAILY PRN TOP PER WOUND CARE ORDERS; Start at 11:30 Metoprolol Tartrate (Lopressor) 50 mg BID GTB Last administered on 12/20/16 08: 41; Admin Dose 50 MG; Start 12/04/16 at 21:00 Famotidine (Pepcid) 20 mg DAILY GTB Last administered on 12/20/16 08:41; Admin Dose 20 MG; Start 12/05/16 at 09:00 Losartan Potassium (Cozaar) 25 mg BID PO Last administered on 12/20/16 08:41; Admin Dose 25 MG; Start 12/05/16 at 21:00 Hydralazine HCl 10 mg 10 mg Q6H PRN IV ELEVATED BLOOD PRESSURE Last administered on 12/13/16 18:26; Admin Dose 10 MG; Start 12/06/16 at 16:00 Vancomycin HCl 250 ml @ 125 mls/hr Q24H IVPB Last administered on 12/20/16 04: 09; Admin Dose 125 MLS/HR; Start 12/07/16 at 05:00 Ceftazidime/ Dextrose (Fortaz 2gm/50 ml (Pmx)) 50 ml @ 100 mls/hr Q8 IVPB Last administered on 12/20/16 14:18; Admin Dose 100 MLS/HR; Start 12/09/16 at 14 :00 Amikacin Sulfate (Amikacin Iv Per Pharmacy) AMIKACIN PER PHARMACY NOTE XX ; Start 12/10/16 at 19:00 Ketoconazole (Nizoral Shampoo) 1 applic Q12 TOP Last administered on 12/20/16 08:41; Admin Dose 1 APPLIC; Start 12/14/16 at 21:00 Ketoconazole 1 applic 1 applic BID TOP Last administered on 12/20/16 08:41; Admin Dose 1 APPLIC; Start 12/14/16 at 21:00 Amikacin Sulfate/ Sodium Chloride (Amikacin/NS) 150 ml @ 150 mls/hr Q72H IVPB ; Start 12/21/16 at 00:00 Fluconazole (Diflucan) 100 mg DAILY PO Last administered on 12/20/16 14:18; Admin Dose 100 MG; Start 12/20/16 at 13:30 SU MURPHY MD December 20, 2016 16:45
[2016-12-20] MEDS: AMIKACIN IVPB SCH (23:23)
[2016-12-20] MEDS: SOD CHLORIDE 0.9% IVPB SCH (23:23)
[2016-12-21] VITALS (24 sets, daily range): BP systolic 130–157; BP diastolic 66–79; PULSE 87–100; RESP 14–21
[2016-12-21] MEDS: LEVALBUTEROL (HFA) 15 GM INHALER INH SCH ×4 (01:26→23:41)
[2016-12-21] MEDS: VANCOMYCIN 1 GM in NS 250 ML IVPB SCH (04:01)
[2016-12-21] MEDS: CEFTAZIDIME 2GM/50 ML (PMX) 50 ML IVPB SCH ×3 (05:55→22:03)
[2016-12-21 06:53] LABS: ADD SCAN DIFF NO
[2016-12-21 06:59] LABS: BASOPHILS % 0.2 % (0.0-2.0); EOSINOPHILS # 0.5 10^3/ul (0.0-0.5); EOSINOPHILS % 2.3 % (0.0-7.0); HEMATOCRIT 29.1 % (42.0-52.0); HEMOGLOBIN 8.6 g/dl (14.0-18.0); LYMPHOCYTES # 1.2 10^3/ul (0.8-2.9); LYMPHOCYTES % 6.2 % (15.0-51.0); MEAN CORPUSCULAR HEMOGLOBIN 27.5 pg (29.0-33.0); MEAN CORPUSCULAR HGB CONC 29.6 g/dl (32.0-37.0); MEAN PLATELET VOLUME 11.6 fl (7.4-10.4); MONOCYTE # 0.8 10^3/ul (0.3-0.9); MONOCYTES % 4.1 % (0.0-11.0); NEUTROPHIL # 17.1 10^3/ul (1.6-7.5); NEUTROPHILS % 86.3 % (39.0-77.0); PLATELET COUNT 215 10^3/UL (140-415); RED BLOOD COUNT 3.13 10^6/ul (4.70-6.10); RED CELL DISTRIBUTION WIDTH 16.5 % (11.5-14.5); WHITE BLOOD COUNT 19.8 10^3/ul (4.8-10.8)
[2016-12-21] MEDS: IPRATROPIUM (HFA) 12.9 GM INHALER INH SCH ×3 (07:15→23:41)
[2016-12-21 07:21] LABS: INR 1.29; PROTIME 16.2 Sec (12.2-14.2); PT RATIO 1.3
[2016-12-21 07:22] LABS: PARTIAL THROMBOPLASTIN TIME 38.2 Sec (25.0-35.0)
[2016-12-21 07:36] LABS: CREATININE 0.46 mg/dl (0.61-1.24); POTASSIUM 3.4 mmol/L (3.5-5.1)
[2016-12-21] MEDS: FLUCONAZOLE 100 MG TAB PO SCH (08:22)
[2016-12-21] MEDS: LOSARTAN 25 MG TAB PO SCH ×2 (08:22→20:06)
[2016-12-21] MEDS: METOPROLOL 25 MG TAB GTB SCH ×2 (08:23→20:06)
[2016-12-21] MEDS: KETOCONAZOLE 2% 15 GM CR TOP SCH ×2 (08:23→20:07)
[2016-12-21] MEDS: COLLAGENASE 30 GM TUBE TOP SCH (08:23)
[2016-12-21] MEDS: FAMOTIDINE 20 MG TAB GTB SCH (08:23)
[2016-12-21] MEDS: KETOCONAZOLE 2% SHAMPOO 120 ML BTL TOP SCH ×2 (09:00→20:07)
--- NOTE | 2016-12-21 11:16 | CONS ---
Date/Time of Note Date/Time of Note DATE: 12/21/16 TIME: 11:13 Consult Date/Type/Reason Admit Date/Time Nov 30, 2016 at 04:54 Initial Consult Date 12/01/16 Type of Consultation: Pulmonary Ordering Provider: CHARLETTE RUTHERFORD Subjective Continues mechanical ventilation mild agitation is morning Objective Vital Signs Date Time Temp Pulse Resp B/P Pulse Ox O2 Delivery O2 Flow Rate FiO2 12/21/16 09:30 84 14 93 35 12/21/16 07:45 98.7 134/68 Intake and Output 12/20/16 12/20/16 12/21/16 14:59 22:59 06:59 Intake Total 1100 ml 1170 ml Output Total 1150 ml 1000 ml Balance -50 ml 170 ml Exam PHYSICAL EXAMINATION GENERAL: Elderly gentleman, on mechanical ventilation appears comfortable VITAL SIGNS: see below. HEENT: Pupils equal, round, and reactive to light. Tracheostomy site clean and intact. CARDIAC: S1, S2, 1/6 systolic ejection murmur CHEST: Diminished air entry bilaterally. ABDOMEN: Mildly distended. Bowel sounds present no guarding or rebound EXTREMITIES: No cyanosis, clubbing edema +1 NEUROLOGIC: unable to assess Results/Medications Result Diagram: 12/21/16 0530 12/21/16 0530 Results 24 hrs Laboratory Tests Test 12/21/16 05:30 White Blood Count 19.8 #H Red Blood Count 3.13 L Hemoglobin 8.6 L Hematocrit 29.1 L Mean Corpuscular Volume 93.0 Mean Corpuscular Hemoglobin 27.5 L Mean Corpuscular Hemoglobin Concent 29.6 L Red Cell Distribution Width 16.5 H Platelet Count 215 Mean Platelet Volume 11.6 H Neutrophils % 86.3 H Lymphocytes % 6.2 L Monocytes % 4.1 Eosinophils % 2.3 Basophils % 0.2 Nucleated Red Blood Cells % 0.0 Neutrophils # 17.1 H Lymphocytes # 1.2 Monocytes # 0.8 Eosinophils # 0.5 Basophils # 0.0 Nucleated Red Blood Cells # 0.0 Prothrombin Time 16.2 H Prothrombin Time Ratio 1.3 INR International Normalized Ratio 1.29 Activated Partial Thromboplast Time 38.2 H Sodium Level 136 Potassium Level 3.4 L Chloride Level 99 Carbon Dioxide Level 33 H Anion Gap 7 L Blood Urea Nitrogen 31 H Creatinine 0.46 L Glucose Level 157 Calcium Level 10.0 Medications Current Medications Acetaminophen (Tylenol Tab) 650 mg Q6H PRN PEG PAIN LEVEL 1-3 OR FEVER Last administered on 12/20/16 08:41; Admin Dose 650 MG; Start 11/30/16 at 05:00 Morphine Sulfate (morphine) 2 mg Q4H PRN IV PAIN LEVEL 7-10 Last administered on 12/18/16 09:14; Admin Dose 2 MG; Start 11/30/16 at 05:00 Miscellaneous Information 1 ea NOTE XX ; Start 11/30/16 at 05:00 Glucose (Glutose) 15 gm Q15M PRN PO DECREASED GLUCOSE; Start 11/30/16 at 05:00 Glucose (Glutose) 22.5 gm Q15M PRN PO DECREASED GLUCOSE; Start 11/30/16 at 05: 00 Dextrose (D50w Syringe) 25 ml Q15M PRN IV DECREASED GLUCOSE; Start 11/30/16 at 05:00 Dextrose (D50w Syringe) 50 ml Q15M PRN IV DECREASED GLUCOSE; Start 11/30/16 at 05:00 Glucagon (Glucagen) 1 mg Q15M PRN IM DECREASED GLUCOSE; Start 11/30/16 at 05:00 Glucose (Glutose) 15 gm Q15M PRN BUCCAL DECREASED GLUCOSE; Start 11/30/16 at 05 :00 Metoprolol Tartrate (Lopressor) 2.5 mg Q2H PRN IV heart rate over 110 Last administered on 12/17/16 06:57; Admin Dose 2.5 MG; Start 12/01/16 at 12:00 Collagenase (Santyl) 1 applic DAILY TOP Last administered on 12/21/16 08:23; Admin Dose 1 APPLIC; Start 12/02/16 at 12:00 Collagenase (Santyl) 1 applic DAILY PRN TOP PER WOUND CARE ORDERS; Start at 11:30 Metoprolol Tartrate (Lopressor) 50 mg BID GTB Last administered on 12/21/16 08: 23; Admin Dose 50 MG; Start 12/04/16 at 21:00 Famotidine (Pepcid) 20 mg DAILY GTB Last administered on 12/21/16 08:23; Admin Dose 20 MG; Start 12/05/16 at 09:00 Losartan Potassium (Cozaar) 25 mg BID PO Last administered on 12/21/16 08:22; Admin Dose 25 MG; Start 12/05/16 at 21:00 Hydralazine HCl 10 mg 10 mg Q6H PRN IV ELEVATED BLOOD PRESSURE Last administered on 12/13/16 18:26; Admin Dose 10 MG; Start 12/06/16 at 16:00 Vancomycin HCl 250 ml @ 125 mls/hr Q24H IVPB Last administered on 12/21/16 04: 01; Admin Dose 125 MLS/HR; Start 12/07/16 at 05:00 Ceftazidime/ Dextrose (Fortaz 2gm/50 ml (Pmx)) 50 ml @ 100 mls/hr Q8 IVPB Last administered on 12/21/16 05:55; Admin Dose 100 MLS/HR; Start 12/09/16 at 14 :00 Amikacin Sulfate (Amikacin Iv Per Pharmacy) AMIKACIN PER PHARMACY NOTE XX ; Start 12/10/16 at 19:00 Ketoconazole (Nizoral Shampoo) 1 applic Q12 TOP Last administered on 12/20/16 20:31; Admin Dose 1 APPLIC; Start 12/14/16 at 21:00 Ketoconazole 1 applic 1 applic BID TOP Last administered on 12/21/16 08:23; Admin Dose 1 APPLIC; Start 12/14/16 at 21:00 Amikacin Sulfate/ Sodium Chloride (Amikacin/NS) 150 ml @ 150 mls/hr Q72H IVPB Last administered on 12/20/16 23:23; Admin Dose 150 MLS/HR; Start 12/21/16 at 00: 00 Fluconazole (Diflucan) 100 mg DAILY PO Last administered on 12/21/16 08:22; Admin Dose 100 MG; Start 12/20/16 at 13:30 Assessment/Plan Chief Complaint/Hosp Course Assessment 1. Hypoxemic respiratory failure on mechanical ventilation via tracheostomy 2. Persistent leukocytosis likely polymicrobial sepsis 3. Mild dehydration 4. Anemia of chronic disease 5. History of CVA 6. Dysphagia with G-tube Plan 1. Continue mechanical ventilation 2. Continue broad-spectrum antibiotics questionable underlying malignancy versus abscess 3. Tube feeding as tolerated 4. Correction of electrolyte abnormalities 5. DVT GI prophylaxis Disposition Continue telemetry care Overall prognosis very poor consider palliative care consult Problems: JOSEF HERRING MD, [facility] December 21, 2016 11:16
--- NOTE | 2016-12-21 11:25 | PN ---
Date/Time of Note Date/Time of Note DATE: 12/21/16 TIME: 11:20 Assessment/Plan VTE Prophylaxis VTE Prophylaxis Intervention: LMWH Lines/Catheters IV Catheter Type (from Nrsg): PICC Line Central line still needed: Yes Urinary Cath still in place: Yes Reason Cath still needed: urinary retention Assessment/Plan Assessment/Plan persistent leukocytosis VALENTINE PNA chrnic resp failure MRSA in nares cont iv abx check WBC scan result ID follow up Subjective 24 Hr Interval Summary Subjective hx not possible: pt non-verbal Exam/Review of Systems Vital Signs Vitals Vital Signs Date Time Temp Pulse Resp B/P Pulse Ox O2 Delivery O2 Flow Rate FiO2 12/21/16 09:30 84 14 93 35 12/21/16 07:45 98.7 134/68 Intake and Output 12/20/16 12/20/16 12/21/16 15:00 23:00 07:00 Intake Total 1100 ml 1170 ml Output Total 1150 ml 1000 ml Balance -50 ml 170 ml Exam Neck: non-tender, supple Respiratory: crackles/rales Cardiovascular: regular rate and rhythm Gastrointestinal: non-tender, soft Results Result Diagram: 12/21/16 0530 12/21/16 0530 Results 24 hrs Laboratory Tests Test 12/21/16 05:30 White Blood Count 19.8 #H Red Blood Count 3.13 L Hemoglobin 8.6 L Hematocrit 29.1 L Mean Corpuscular Volume 93.0 Mean Corpuscular Hemoglobin 27.5 L Mean Corpuscular Hemoglobin Concent 29.6 L Red Cell Distribution Width 16.5 H Platelet Count 215 Mean Platelet Volume 11.6 H Neutrophils % 86.3 H Lymphocytes % 6.2 L Monocytes % 4.1 Eosinophils % 2.3 Basophils % 0.2 Nucleated Red Blood Cells % 0.0 Neutrophils # 17.1 H Lymphocytes # 1.2 Monocytes # 0.8 Eosinophils # 0.5 Basophils # 0.0 Nucleated Red Blood Cells # 0.0 Prothrombin Time 16.2 H Prothrombin Time Ratio 1.3 INR International Normalized Ratio 1.29 Activated Partial Thromboplast Time 38.2 H Sodium Level 136 Potassium Level 3.4 L Chloride Level 99 Carbon Dioxide Level 33 H Anion Gap 7 L Blood Urea Nitrogen 31 H Creatinine 0.46 L Glucose Level 157 Calcium Level 10.0 Medications Medications Current Medications Acetaminophen (Tylenol Tab) 650 mg Q6H PRN PEG PAIN LEVEL 1-3 OR FEVER Last administered on 12/20/16 08:41; Admin Dose 650 MG; Start 11/30/16 at 05:00 Morphine Sulfate (morphine) 2 mg Q4H PRN IV PAIN LEVEL 7-10 Last administered on 12/18/16 09:14; Admin Dose 2 MG; Start 11/30/16 at 05:00 Miscellaneous Information 1 ea NOTE XX ; Start 11/30/16 at 05:00 Glucose (Glutose) 15 gm Q15M PRN PO DECREASED GLUCOSE; Start 11/30/16 at 05:00 Glucose (Glutose) 22.5 gm Q15M PRN PO DECREASED GLUCOSE; Start 11/30/16 at 05: 00 Dextrose (D50w Syringe) 25 ml Q15M PRN IV DECREASED GLUCOSE; Start 11/30/16 at 05:00 Dextrose (D50w Syringe) 50 ml Q15M PRN IV DECREASED GLUCOSE; Start 11/30/16 at 05:00 Glucagon (Glucagen) 1 mg Q15M PRN IM DECREASED GLUCOSE; Start 11/30/16 at 05:00 Glucose (Glutose) 15 gm Q15M PRN BUCCAL DECREASED GLUCOSE; Start 11/30/16 at 05 :00 Metoprolol Tartrate (Lopressor) 2.5 mg Q2H PRN IV heart rate over 110 Last administered on 12/17/16 06:57; Admin Dose 2.5 MG; Start 12/01/16 at 12:00 Collagenase (Santyl) 1 applic DAILY TOP Last administered on 12/21/16 08:23; Admin Dose 1 APPLIC; Start 12/02/16 at 12:00 Collagenase (Santyl) 1 applic DAILY PRN TOP PER WOUND CARE ORDERS; Start at 11:30 Metoprolol Tartrate (Lopressor) 50 mg BID GTB Last administered on 12/21/16 08: 23; Admin Dose 50 MG; Start 12/04/16 at 21:00 Famotidine (Pepcid) 20 mg DAILY GTB Last administered on 12/21/16 08:23; Admin Dose 20 MG; Start 12/05/16 at 09:00 Losartan Potassium (Cozaar) 25 mg BID PO Last administered on 12/21/16 08:22; Admin Dose 25 MG; Start 12/05/16 at 21:00 Hydralazine HCl 10 mg 10 mg Q6H PRN IV ELEVATED BLOOD PRESSURE Last administered on 12/13/16 18:26; Admin Dose 10 MG; Start 12/06/16 at 16:00 Vancomycin HCl 250 ml @ 125 mls/hr Q24H IVPB Last administered on 12/21/16 04: 01; Admin Dose 125 MLS/HR; Start 12/07/16 at 05:00 Ceftazidime/ Dextrose (Fortaz 2gm/50 ml (Pmx)) 50 ml @ 100 mls/hr Q8 IVPB Last administered on 12/21/16 05:55; Admin Dose 100 MLS/HR; Start 12/09/16 at 14 :00 Amikacin Sulfate (Amikacin Iv Per Pharmacy) AMIKACIN PER PHARMACY NOTE XX ; Start 12/10/16 at 19:00 Ketoconazole (Nizoral Shampoo) 1 applic Q12 TOP Last administered on 12/20/16 20:31; Admin Dose 1 APPLIC; Start 12/14/16 at 21:00 Ketoconazole 1 applic 1 applic BID TOP Last administered on 12/21/16 08:23; Admin Dose 1 APPLIC; Start 12/14/16 at 21:00 Amikacin Sulfate/ Sodium Chloride (Amikacin/NS) 150 ml @ 150 mls/hr Q72H IVPB Last administered on 12/20/16 23:23; Admin Dose 150 MLS/HR; Start 12/21/16 at 00: 00 Fluconazole (Diflucan) 100 mg DAILY PO Last administered on 12/21/16 08:22; Admin Dose 100 MG; Start 12/20/16 at 13:30 LAY CABRERA MD December 21, 2016 11:25
--- NOTE | 2016-12-21 20:18 | CONS ---
Date/Time of Note Date/Time of Note DATE: 12/21/16 TIME: 20:17 Assessment/Plan Assessment/Plan Chief Complaint/Hosp Course SUBJECTIVE: No events overnight. No fevers. The patient is lethargic, lying comfortably in bed. MICROBIOLOGY: Urine culture from December 17 remains negative. INDWELLINGS: Trach, PEG, Cherry, PICC line. ANTIMICROBIALS: The patient remains on: 1. Amikacin. 2. Fortaz. 3. Vancomycin. 4. Diflucan PHYSICAL EXAMINATION: GENERAL: This is well-developed, fragile, elderly man who is in no distress. HEENT: Head atraumatic, normocephalic. Sclerae anicteric. Buccal mucosa dry. NECK: Supple. Tracheostomy present. CHEST: Rise symmetrical. Breath sounds clear, diminished to bases. HEART: S1, S2. ABDOMEN: Soft, bowel sounds present. EXTREMITIES: No cyanosis. ASSESSMENT: 1. Systemic inflammatory response syndrome with persistent leukocytosis. 2. Healthcare-associated pneumonia with sputum culture growing Pseudomonas aeruginosa and Providencia stuartii. 3. Sacral decubitus ulcer, improving. 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 5. Hypertension. 6. Dysphagia. PLAN: Remains unchanged, wbc slightly decreased, continue abx, pending WBC labeled nuclear scan and procalcitonin level DW staff DW Dr Vincenzo Rudd Problems: Consultation Date/Type/Reason Admit Date/Time Nov 30, 2016 at 04:54 Initial Consult Date 12/01/16 Type of Consultation: ID Referring Provider: CHARLETTE RUTHERFORD Exam/Review of Systems Vital Signs Vitals Vital Signs Date Time Temp Pulse Resp B/P Pulse Ox O2 Delivery O2 Flow Rate FiO2 12/21/16 20:00 98.8 106 20 138/71 90 12/21/16 19:51 35 Intake and Output 12/20/16 12/20/16 12/21/16 15:00 23:00 07:00 Intake Total 1100 ml 1170 ml Output Total 1150 ml 1000 ml Balance -50 ml 170 ml Results Result Diagram: 12/21/16 0530 12/21/16 0530 Results 24 hrs Laboratory Tests Test 12/21/16 05:30 White Blood Count 19.8 #H Red Blood Count 3.13 L Hemoglobin 8.6 L Hematocrit 29.1 L Mean Corpuscular Volume 93.0 Mean Corpuscular Hemoglobin 27.5 L Mean Corpuscular Hemoglobin Concent 29.6 L Red Cell Distribution Width 16.5 H Platelet Count 215 Mean Platelet Volume 11.6 H Neutrophils % 86.3 H Lymphocytes % 6.2 L Monocytes % 4.1 Eosinophils % 2.3 Basophils % 0.2 Nucleated Red Blood Cells % 0.0 Neutrophils # 17.1 H Lymphocytes # 1.2 Monocytes # 0.8 Eosinophils # 0.5 Basophils # 0.0 Nucleated Red Blood Cells # 0.0 Prothrombin Time 16.2 H Prothrombin Time Ratio 1.3 INR International Normalized Ratio 1.29 Activated Partial Thromboplast Time 38.2 H Sodium Level 136 Potassium Level 3.4 L Chloride Level 99 Carbon Dioxide Level 33 H Anion Gap 7 L Blood Urea Nitrogen 31 H Creatinine 0.46 L Glucose Level 157 Calcium Level 10.0 Medications Medications Current Medications Acetaminophen (Tylenol Tab) 650 mg Q6H PRN PEG PAIN LEVEL 1-3 OR FEVER Last administered on 12/20/16 08:41; Admin Dose 650 MG; Start 11/30/16 at 05:00 Morphine Sulfate (morphine) 2 mg Q4H PRN IV PAIN LEVEL 7-10 Last administered on 12/18/16 09:14; Admin Dose 2 MG; Start 11/30/16 at 05:00 Miscellaneous Information 1 ea NOTE XX ; Start 11/30/16 at 05:00 Glucose (Glutose) 15 gm Q15M PRN PO DECREASED GLUCOSE; Start 11/30/16 at 05:00 Glucose (Glutose) 22.5 gm Q15M PRN PO DECREASED GLUCOSE; Start 11/30/16 at 05: 00 Dextrose (D50w Syringe) 25 ml Q15M PRN IV DECREASED GLUCOSE; Start 11/30/16 at 05:00 Dextrose (D50w Syringe) 50 ml Q15M PRN IV DECREASED GLUCOSE; Start 11/30/16 at 05:00 Glucagon (Glucagen) 1 mg Q15M PRN IM DECREASED GLUCOSE; Start 11/30/16 at 05:00 Glucose (Glutose) 15 gm Q15M PRN BUCCAL DECREASED GLUCOSE; Start 11/30/16 at 05 :00 Metoprolol Tartrate (Lopressor) 2.5 mg Q2H PRN IV heart rate over 110 Last administered on 12/17/16 06:57; Admin Dose 2.5 MG; Start 12/01/16 at 12:00 Collagenase (Santyl) 1 applic DAILY TOP Last administered on 12/21/16 08:23; Admin Dose 1 APPLIC; Start 12/02/16 at 12:00 Collagenase (Santyl) 1 applic DAILY PRN TOP PER WOUND CARE ORDERS; Start at 11:30 Metoprolol Tartrate (Lopressor) 50 mg BID GTB Last administered on 12/21/16 20: 06; Admin Dose 50 MG; Start 12/04/16 at 21:00 Famotidine (Pepcid) 20 mg DAILY GTB Last administered on 12/21/16 08:23; Admin Dose 20 MG; Start 12/05/16 at 09:00 Losartan Potassium (Cozaar) 25 mg BID PO Last administered on 12/21/16 20:06; Admin Dose 25 MG; Start 12/05/16 at 21:00 Hydralazine HCl 10 mg 10 mg Q6H PRN IV ELEVATED BLOOD PRESSURE Last administered on 12/13/16 18:26; Admin Dose 10 MG; Start 12/06/16 at 16:00 Vancomycin HCl 250 ml @ 125 mls/hr Q24H IVPB Last administered on 12/21/16 04: 01; Admin Dose 125 MLS/HR; Start 12/07/16 at 05:00 Ceftazidime/ Dextrose (Fortaz 2gm/50 ml (Pmx)) 50 ml @ 100 mls/hr Q8 IVPB Last administered on 12/21/16 13:18; Admin Dose 100 MLS/HR; Start 12/09/16 at 14 :00 Amikacin Sulfate (Amikacin Iv Per Pharmacy) AMIKACIN PER PHARMACY NOTE XX ; Start 12/10/16 at 19:00 Ketoconazole (Nizoral Shampoo) 1 applic Q12 TOP Last administered on 12/21/16 20:07; Admin Dose 1 APPLIC; Start 12/14/16 at 21:00 Ketoconazole 1 applic 1 applic BID TOP Last administered on 12/21/16 20:07; Admin Dose 1 APPLIC; Start 12/14/16 at 21:00 Amikacin Sulfate/ Sodium Chloride (Amikacin/NS) 150 ml @ 150 mls/hr Q72H IVPB Last administered on 12/20/16 23:23; Admin Dose 150 MLS/HR; Start 12/21/16 at 00: 00 Fluconazole (Diflucan) 100 mg DAILY PO Last administered on 12/21/16t 08:22; Admin Dose 100 MG; Start 12/20/16 at 13:30 ELI VALDEZ NP December 21, 2016 20:18
[2016-12-22] VITALS (22 sets, daily range): BP systolic 123–138; BP diastolic 51–72; PULSE 78–104; RESP 15–28
[2016-12-22] MEDS: VANCOMYCIN 1 GM in NS 250 ML IVPB SCH (04:22)
[2016-12-22] MEDS: CEFTAZIDIME 2GM/50 ML (PMX) 50 ML IVPB SCH ×3 (05:26→21:17)
[2016-12-22] MEDS: IPRATROPIUM (HFA) 12.9 GM INHALER INH SCH ×2 (07:18→15:44)
[2016-12-22] MEDS: LEVALBUTEROL (HFA) 15 GM INHALER INH SCH ×2 (07:19→15:45)
[2016-12-22] MEDS: LOSARTAN 25 MG TAB PO SCH ×2 (09:23→20:05)
[2016-12-22] MEDS: FAMOTIDINE 20 MG TAB GTB SCH (09:23)
[2016-12-22] MEDS: FLUCONAZOLE 100 MG TAB PO SCH (09:23)
[2016-12-22] MEDS: KETOCONAZOLE 2% 15 GM CR TOP SCH ×2 (09:24→20:11)
[2016-12-22] MEDS: METOPROLOL 25 MG TAB GTB SCH ×2 (09:24→20:06)
[2016-12-22] MEDS: COLLAGENASE 30 GM TUBE TOP SCH (09:25)
[2016-12-22] MEDS: KETOCONAZOLE 2% SHAMPOO 120 ML BTL TOP SCH ×2 (09:25→20:10)
--- NOTE | 2016-12-22 10:10 | PN ---
Date/Time of Note Date/Time of Note DATE: 12/22/16 TIME: 10:05 Assessment/Plan VTE Prophylaxis VTE Prophylaxis Intervention: LMWH Lines/Catheters IV Catheter Type (from Nrsg): PICC Line Central line still needed: Yes Urinary Cath still in place: Yes Reason Cath still needed: skin wounds contaminated by urine Assessment/Plan Assessment/Plan 81 yo male with polymicrobial nosocomial PNA, pseudomonas and providentia Chronic resp failure,vent dependent persistent leukocytosis HTN dysphagia poor prognosis Cont triple abx await WBC tagged scan ID and pulm f/u Subjective 24 Hr Interval Summary Subjective hx not possible: pt non-verbal Exam/Review of Systems Vital Signs Vitals Vital Signs Date Time Temp Pulse Resp B/P Pulse Ox O2 Delivery O2 Flow Rate FiO2 12/22/16 09:20 103 16 97 35 12/22/16 07:57 98.6 123/66 Intake and Output 12/21/16 12/21/16 12/22/16 15:00 23:00 07:00 Intake Total 50 ml 910 ml 1170 ml Output Total 1100 ml 1000 ml Balance 50 ml -190 ml 170 ml Exam Neck: supple Respiratory: normal air movement Cardiovascular: regular rate and rhythm Gastrointestinal: non-tender, soft Results Result Diagram: 12/21/1652912/21/1630 Medications Medications Current Medications Acetaminophen (Tylenol Tab) 650 mg Q6H PRN PEG PAIN LEVEL 1-3 OR FEVER Last administered on 12/20/16 08:41; Admin Dose 650 MG; Start 11/30/16 at 05:00 Morphine Sulfate (morphine) 2 mg Q4H PRN IV PAIN LEVEL 7-10 Last administered on 12/18/16 09:14; Admin Dose 2 MG; Start 11/30/16 at 05:00 Miscellaneous Information 1 ea NOTE XX ; Start 11/30/16 at 05:00 Glucose (Glutose) 15 gm Q15M PRN PO DECREASED GLUCOSE; Start 11/30/16 at 05:00 Glucose (Glutose) 22.5 gm Q15M PRN PO DECREASED GLUCOSE; Start 11/30/16 at 05: 00 Dextrose (D50w Syringe) 25 ml Q15M PRN IV DECREASED GLUCOSE; Start 11/30/16 at 05:00 Dextrose (D50w Syringe) 50 ml Q15M PRN IV DECREASED GLUCOSE; Start 11/30/16 at 05:00 Glucagon (Glucagen) 1 mg Q15M PRN IM DECREASED GLUCOSE; Start 11/30/16 at 05:00 Glucose (Glutose) 15 gm Q15M PRN BUCCAL DECREASED GLUCOSE; Start 11/30/16 at 05 :00 Metoprolol Tartrate (Lopressor) 2.5 mg Q2H PRN IV heart rate over 110 Last administered on 12/17/16 06:57; Admin Dose 2.5 MG; Start 12/01/16 at 12:00 Collagenase (Santyl) 1 applic DAILY TOP Last administered on 12/22/16 09:25; Admin Dose 1 APPLIC; Start 12/02/16 at 12:00 Collagenase (Santyl) 1 applic DAILY PRN TOP PER WOUND CARE ORDERS; Start at 11:30 Metoprolol Tartrate (Lopressor) 50 mg BID GTB Last administered on 12/22/16 09: 24; Admin Dose 50 MG; Start 12/04/16 at 21:00 Famotidine (Pepcid) 20 mg DAILY GTB Last administered on 12/22/16 09:23; Admin Dose 20 MG; Start 12/05/16 at 09:00 Losartan Potassium (Cozaar) 25 mg BID PO Last administered on 12/22/16 09:23; Admin Dose 25 MG; Start 12/05/16 at 21:00 Hydralazine HCl 10 mg 10 mg Q6H PRN IV ELEVATED BLOOD PRESSURE Last administered on 12/13/16 18:26; Admin Dose 10 MG; Start 12/06/16 at 16:00 Vancomycin HCl 250 ml @ 125 mls/hr Q24H IVPB Last administered on 12/22/16 04: 22; Admin Dose 125 MLS/HR; Start 12/07/16 at 05:00 Ceftazidime/ Dextrose (Fortaz 2gm/50 ml (Pmx)) 50 ml @ 100 mls/hr Q8 IVPB Last administered on 12/22/16 05:26; Admin Dose 100 MLS/HR; Start 12/09/16 at 14 :00 Amikacin Sulfate (Amikacin Iv Per Pharmacy) AMIKACIN PER PHARMACY NOTE XX ; Start 12/10/16 at 19:00 Ketoconazole (Nizoral Shampoo) 1 applic Q12 TOP Last administered on 12/22/16 09:25; Admin Dose 1 APPLIC; Start 12/14/16 at 21:00 Ketoconazole 1 applic 1 applic BID TOP Last administered on 12/22/16 09:24; Admin Dose 1 APPLIC; Start 12/14/16 at 21:00 Amikacin Sulfate/ Sodium Chloride (Amikacin/NS) 150 ml @ 150 mls/hr Q72H IVPB Last administered on 12/20/16 23:23; Admin Dose 150 MLS/HR; Start 12/21/16 at 00: 00 Fluconazole (Diflucan) 100 mg DAILY PO Last administered on 12/22/16 09:23; Admin Dose 100 MG; Start 12/20/16 at 13:30 LAY CABRERA MD December 22, 2016 10:10
--- NOTE | 2016-12-22 14:19 | CONS ---
Date/Time of Note Date/Time of Note DATE: 12/22/16 TIME: 14:18 Consult Date/Type/Reason Admit Date/Time Nov 30, 2016 at 04:54 Initial Consult Date 12/01/16 Type of Consultation: pulmonary Ordering Provider: HCARLETTE RUTHERFORD Subjective Patient remained stable no new events Objective Vital Signs Date Time Temp Pulse Resp B/P Pulse Ox O2 Delivery O2 Flow Rate FiO2 12/22/16 12:34 78 12/22/16 12:09 98.2 18 123/57 98 12/22/16 11:20 35 Intake and Output 12/21/16 12/21/16 12/22/16 15:00 23:00 07:00 Intake Total 50 ml 910 ml 1170 ml Output Total 1100 ml 1000 ml Balance 50 ml -190 ml 170 ml Results/Medications Result Diagram: 12/21/16 0530 12/21/16 0530 Results 24 hrs PHYSICAL EXAMINATION GENERAL: Elderly gentleman, on mechanical ventilation appears comfortable VITAL SIGNS: see below. HEENT: Pupils equal, round, and reactive to light. Tracheostomy site clean and intact. CARDIAC: S1, S2, 1/6 systolic ejection murmur CHEST: Diminished air entry bilaterally. ABDOMEN: Mildly distended. Bowel sounds present no guarding or rebound EXTREMITIES: No cyanosis, clubbing edema +1 NEUROLOGIC: unable to assess Medications Current Medications Acetaminophen (Tylenol Tab) 650 mg Q6H PRN PEG PAIN LEVEL 1-3 OR FEVER Last administered on 12/20/16 08:41; Admin Dose 650 MG; Start 11/30/16 at 05:00 Morphine Sulfate (morphine) 2 mg Q4H PRN IV PAIN LEVEL 7-10 Last administered on 12/18/16 09:14; Admin Dose 2 MG; Start 11/30/16 at 05:00 Miscellaneous Information 1 ea NOTE XX ; Start 11/30/16 at 05:00 Glucose (Glutose) 15 gm Q15M PRN PO DECREASED GLUCOSE; Start 11/30/16 at 05:00 Glucose (Glutose) 22.5 gm Q15M PRN PO DECREASED GLUCOSE; Start 11/30/16 at 05: 00 Dextrose (D50w Syringe) 25 ml Q15M PRN IV DECREASED GLUCOSE; Start 11/30/16 at 05:00 Dextrose (D50w Syringe) 50 ml Q15M PRN IV DECREASED GLUCOSE; Start 11/30/16 at 05:00 Glucagon (Glucagen) 1 mg Q15M PRN IM DECREASED GLUCOSE; Start 11/30/16 at 05:00 Glucose (Glutose) 15 gm Q15M PRN BUCCAL DECREASED GLUCOSE; Start 11/30/16 at 05 :00 Metoprolol Tartrate (Lopressor) 2.5 mg Q2H PRN IV heart rate over 110 Last administered on 12/17/16 06:57; Admin Dose 2.5 MG; Start 12/01/16 at 12:00 Collagenase (Santyl) 1 applic DAILY TOP Last administered on 12/22/16 09:25; Admin Dose 1 APPLIC; Start 12/02/16 at 12:00 Collagenase (Santyl) 1 applic DAILY PRN TOP PER WOUND CARE ORDERS; Start at 11:30 Metoprolol Tartrate (Lopressor) 50 mg BID GTB Last administered on 12/22/16 09: 24; Admin Dose 50 MG; Start 12/04/16 at 21:00 Famotidine (Pepcid) 20 mg DAILY GTB Last administered on 12/22/16 09:23; Admin Dose 20 MG; Start 12/05/16 at 09:00 Losartan Potassium (Cozaar) 25 mg BID PO Last administered on 12/22/16 09:23; Admin Dose 25 MG; Start 12/05/16 at 21:00 Hydralazine HCl 10 mg 10 mg Q6H PRN IV ELEVATED BLOOD PRESSURE Last administered on 12/13/16 18:26; Admin Dose 10 MG; Start 12/06/16 at 16:00 Vancomycin HCl 250 ml @ 125 mls/hr Q24H IVPB Last administered on 12/22/16 04: 22; Admin Dose 125 MLS/HR; Start 12/07/16 at 05:00 Ceftazidime/ Dextrose (Fortaz 2gm/50 ml (Pmx)) 50 ml @ 100 mls/hr Q8 IVPB Last administered on 12/22/16 13:13; Admin Dose 100 MLS/HR; Start 12/09/16 at 14 :00 Amikacin Sulfate (Amikacin Iv Per Pharmacy) AMIKACIN PER PHARMACY NOTE XX ; Start 12/10/16 at 19:00 Ketoconazole (Nizoral Shampoo) 1 applic Q12 TOP Last administered on 12/22/16 09:25; Admin Dose 1 APPLIC; Start 12/14/16 at 21:00 Ketoconazole 1 applic 1 applic BID TOP Last administered on 12/22/16 09:24; Admin Dose 1 APPLIC; Start 12/14/16 at 21:00 Amikacin Sulfate/ Sodium Chloride (Amikacin/NS) 150 ml @ 150 mls/hr Q72H IVPB Last administered on 12/20/16 23:23; Admin Dose 150 MLS/HR; Start 12/21/16 at 00: 00 Fluconazole (Diflucan) 100 mg DAILY PO Last administered on 12/22/16 09:23; Admin Dose 100 MG; Start 12/20/16 at 13:30 Assessment/Plan Chief Complaint/Hosp Course Assessment 1. Hypoxemic respiratory failure on mechanical ventilation via tracheostomy 2. Persistent leukocytosis likely polymicrobial sepsis 3. Mild dehydration 4. Anemia of chronic disease 5. History of CVA 6. Dysphagia with G-tube Plan 1. Continue mechanical ventilation 2. Continue broad-spectrum antibiotics questionable underlying malignancy versus abscess 3. Tube feeding as tolerated 4. Correction of electrolyte abnormalities 5. DVT GI prophylaxis Disposition Continue telemetry care Overall prognosis very poor consider palliative care consult Problems: JOSEF HERRING MD, [facility] December 22, 2016 14:19
--- NOTE | 2016-12-22 15:57 | RADRPT ---
PROCEDURE: Indium-111 labeled white blood cell scan CLINICAL INDICATION: 81 -year-old patient with fever and leukocytosis. TECHNIQUE: Following the intravenous injection of 0.59 mCi of Indium-111 labeled white blood cells , whole body anterior and posterior planar images were obtained along with spot views of the chest 2 4 hours post injection. COMPARISON: No prior indium scans. FINDINGS: Increased activity is seen in the mid lower anterior neck, corresponding to the tracheostomy. Increased uptake is seen in both lungs, more prominent on the right, corresponding to patchy infiltr ates and pleural effusions visualized on the chest x-ray dated December 16, 2016. No other definite abnormal areas of increased activity are seen in the study, including visualized p ortions of the head and neck, chest, abdomen, pelvis and visualized portions of the upper and lower extremities bilaterally. Physiologic uptake is noted in the liver and spleen. IMPRESSION: 1. Increased tracer uptake in both lungs, markedly more prominent on the right, likely due to infec tious/inflammatory process. 2. Increased uptake corresponding to the tracheostomy. 3. No other abnormal foci of increased tracer activity. RPTAT: QQ .Katelyn Chávez MD, Date Time Electronically viewed and signed by .Katelyn Chávez MD, on 12/22/2016 15:57 .L/
--- NOTE | 2016-12-22 16:20 | CONS ---
Date/Time of Note Date/Time of Note DATE: 12/22/16 TIME: 16:19 Assessment/Plan Assessment/Plan Chief Complaint/Hosp Course SUBJECTIVE: No events overnight. No fevers. The patient is lethargic, lying comfortably in bed. MICROBIOLOGY: Urine culture from December 17 remains negative. INDWELLINGS: Trach, PEG, Cherry, PICC line. ANTIMICROBIALS: The patient remains on: 1. Amikacin. 2. Fortaz. 3. Vancomycin. 4. Diflucan PHYSICAL EXAMINATION: GENERAL: This is well-developed, fragile, elderly man who is in no distress. HEENT: Head atraumatic, normocephalic. Sclerae anicteric. Buccal mucosa dry. NECK: Supple. Tracheostomy present. CHEST: Rise symmetrical. Breath sounds clear, diminished to bases. HEART: S1, S2. ABDOMEN: Soft, bowel sounds present. EXTREMITIES: No cyanosis. ASSESSMENT: 1. Sepsis 2 to #2. 2. Healthcare-associated pneumonia with sputum culture growing Pseudomonas aeruginosa and Providencia stuartii. 3. Sacral decubitus ulcer, improving. 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 5. Hypertension. 6. Dysphagia. PLAN: Remains unchanged, wbc scan consistent w PNA, continue abx, pulmonary toilet, f/u pulmonary rec-s DW staff Problems: Consultation Date/Type/Reason Admit Date/Time Nov 30, 2016 at 04:54 Initial Consult Date 12/01/16 Type of Consultation: id Referring Provider: CHARLETTE RUTHERFORD Exam/Review of Systems Vital Signs Vitals Vital Signs Date Time Temp Pulse Resp B/P Pulse Ox O2 Delivery O2 Flow Rate FiO2 12/22/16 16:17 91 12/22/16 16:04 98.0 18 138/71 99 12/22/16 15:15 35 Intake and Output 12/21/16 12/21/16 12/22/16 15:00 23:00 07:00 Intake Total 50 ml 910 ml 1170 ml Output Total 1100 ml 1000 ml Balance 50 ml -190 ml 170 ml Results Result Diagram: 12/21/16 0530 12/21/16 0530 Medications Medications Current Medications Acetaminophen (Tylenol Tab) 650 mg Q6H PRN PEG PAIN LEVEL 1-3 OR FEVER Last administered on 12/20/16t 08:41; Admin Dose 650 MG; Start 11/30/16 at 05:00 Morphine Sulfate (morphine) 2 mg Q4H PRN IV PAIN LEVEL 7-10 Last administered on 12/18/16 09:14; Admin Dose 2 MG; Start 11/30/16 at 05:00 Miscellaneous Information 1 ea NOTE XX ; Start 11/30/16 at 05:00 Glucose (Glutose) 15 gm Q15M PRN PO DECREASED GLUCOSE; Start 11/30/16 at 05:00 Glucose (Glutose) 22.5 gm Q15M PRN PO DECREASED GLUCOSE; Start 11/30/16 at 05: 00 Dextrose (D50w Syringe) 25 ml Q15M PRN IV DECREASED GLUCOSE; Start 11/30/16 at 05:00 Dextrose (D50w Syringe) 50 ml Q15M PRN IV DECREASED GLUCOSE; Start 11/30/16 at 05:00 Glucagon (Glucagen) 1 mg Q15M PRN IM DECREASED GLUCOSE; Start 11/30/16 at 05:00 Glucose (Glutose) 15 gm Q15M PRN BUCCAL DECREASED GLUCOSE; Start 11/30/16 at 05 :00 Metoprolol Tartrate (Lopressor) 2.5 mg Q2H PRN IV heart rate over 110 Last administered on 12/17/16 06:57; Admin Dose 2.5 MG; Start 12/01/16 at 12:00 Collagenase (Santyl) 1 applic DAILY TOP Last administered on 12/22/16 09:25; Admin Dose 1 APPLIC; Start 12/02/16 at 12:00 Collagenase (Santyl) 1 applic DAILY PRN TOP PER WOUND CARE ORDERS; Start at 11:30 Metoprolol Tartrate (Lopressor) 50 mg BID GTB Last administered on 12/22/16 09: 24; Admin Dose 50 MG; Start 12/04/16 at 21:00 Famotidine (Pepcid) 20 mg DAILY GTB Last administered on 12/22/16 09:23; Admin Dose 20 MG; Start 12/05/16 at 09:00 Losartan Potassium (Cozaar) 25 mg BID PO Last administered on 12/22/16 09:23; Admin Dose 25 MG; Start 12/05/16 at 21:00 Hydralazine HCl 10 mg 10 mg Q6H PRN IV ELEVATED BLOOD PRESSURE Last administered on 12/13/16 18:26; Admin Dose 10 MG; Start 12/06/16 at 16:00 Vancomycin HCl 250 ml @ 125 mls/hr Q24H IVPB Last administered on 12/22/16 04: 22; Admin Dose 125 MLS/HR; Start 12/07/16 at 05:00 Ceftazidime/ Dextrose (Fortaz 2gm/50 ml (Pmx)) 50 ml @ 100 mls/hr Q8 IVPB Last administered on 12/22/16 13:13; Admin Dose 100 MLS/HR; Start 12/09/16 at 14 :00 Amikacin Sulfate (Amikacin Iv Per Pharmacy) AMIKACIN PER PHARMACY NOTE XX ; Start 12/10/16 at 19:00 Ketoconazole (Nizoral Shampoo) 1 applic Q12 TOP Last administered on 12/22/16 09:25; Admin Dose 1 APPLIC; Start 12/14/16 at 21:00 Ketoconazole 1 applic 1 applic BID TOP Last administered on 12/22/16 09:24; Admin Dose 1 APPLIC; Start 12/14/16 at 21:00 Amikacin Sulfate/ Sodium Chloride (Amikacin/NS) 150 ml @ 150 mls/hr Q72H IVPB Last administered on 12/20/16 23:23; Admin Dose 150 MLS/HR; Start 12/21/16 at 00: 00 Fluconazole (Diflucan) 100 mg DAILY PO Last administered on 12/22/16 09:23; Admin Dose 100 MG; Start 12/20/16 at 13:30 Miscellaneous Information (*Rx Drug Level Order Reminder*) VANCOMYCIN TROUGH 12/23 AT 0400 ONCE ONCE XX ; Start 12/23/16 at 04:00; Stop 12/23/16 at 04:01 ELI VALDEZ NP December 22, 2016 16:20
[2016-12-23] VITALS (26 sets, daily range): BP systolic 116–131; BP diastolic 56–76; PULSE 90–117; RESP 14–22
[2016-12-23] MEDS: IPRATROPIUM (HFA) 12.9 GM INHALER INH SCH ×3 (00:21→15:23)
[2016-12-23] MEDS: LEVALBUTEROL (HFA) 15 GM INHALER INH SCH ×3 (00:22→15:23)
[2016-12-23] MEDS: VANCOMYCIN 1 GM in NS 250 ML IVPB SCH (05:21)
[2016-12-23] MEDS: CEFTAZIDIME 2GM/50 ML (PMX) 50 ML IVPB SCH ×3 (06:21→20:42)
[2016-12-23] MEDS: FLUCONAZOLE 100 MG TAB PO SCH (08:01)
[2016-12-23] MEDS: FAMOTIDINE 20 MG TAB GTB SCH (08:01)
[2016-12-23] MEDS: METOPROLOL 25 MG TAB GTB SCH ×2 (08:01→20:42)
[2016-12-23] MEDS: LOSARTAN 25 MG TAB PO SCH ×2 (08:01→20:42)
[2016-12-23] MEDS: KETOCONAZOLE 2% 15 GM CR TOP SCH ×2 (08:02→20:43)
[2016-12-23] MEDS: COLLAGENASE 30 GM TUBE TOP SCH (08:02)
[2016-12-23] MEDS: KETOCONAZOLE 2% SHAMPOO 120 ML BTL TOP SCH ×2 (08:03→20:43)
--- NOTE | 2016-12-23 10:01 | PN ---
Date/Time of Note Date/Time of Note DATE: 12/23/16 TIME: 09:37 Assessment/Plan VTE Prophylaxis VTE Prophylaxis Intervention: SCD's Lines/Catheters IV Catheter Type (from Nrsg): PICC Line Central line still needed: Yes (for IV access and abx ) Urinary Cath still in place: Yes Reason Cath still needed: other (indicate) (monitor UOP ) Assessment/Plan Assessment/Plan 81 yo man with: 1. Sepsis, Bilateral Pneumonia, HCAP vs VAP, CT chest and also confirmd on WBC scan with severe bilateral PNA. Sputum cx polymicrobial with MDRO pseudomonas and providencia. Patient on quadriple abx with Diflucan, Amikacin, Vancomycin and Fortaz No other source identified on WBC scan besides PNA bilateral R>L Follow up further ID recs. CBC pending, last labs on 12/21 2. Chronic vent-dependent respiratory failure, stable on Vent, oxygenating well on FiO2 45% currently. With also extensive b/l PNA Continue Vancomycin, Ceftazidime, Diflucan and Amikacin. Appreciate Pulmonary and ID recommendations 3. Hypokalemia/Hypomagnesemia: BMP pending, replete K/Mag prn, 4. Severe anemia on admission, possible GI bleeding, but if so resolved now. Continue PPI. F/u CBC today No evidence for active bleeding for now. Back on Iron supplement. 5. Elevated troponins in setting of a fib with RVR and sepsis, CAD In SR currently and HR controlled with Bblocker, up to 50 mg po bid. Cardiology prn. No anticoag due to Anemia 6. MRSA nares: Bactroban, on Vancomycin 7. Sacral Decub, seems to be healing well per RN and wound care but cx polymicrobial with MDRO. Abx adjusted by ID and on wound care protocol. 8. Hypertension: Continue Metoprolol at 50 mg po bid and Losartan added as BP tolerating. Prophylaxis: Continue SCDs and Famotidine Disposition: On contact isolation and Telemetry. WBC scan confirming PNA as only current source of active infection, per ID continue current abx CBC pending today Plan for d/c back to SNF this week if WBC trending down and stable. Prognosis remains poor to fair at best. Patient is DNR Subjective 24 Hr Interval Summary Free Text/Dictation Patient awake but lethargic and sluggish Afebrile but WBC was still up through the weekend and WBC tagged study c/w with bilateral PNA R>L Labs pending this AM Exam/Review of Systems Vital Signs Vitals Vital Signs Date Time Temp Pulse Resp B/P Pulse Ox O2 Delivery O2 Flow Rate FiO2 12/23/16 08:36 117 12/23/16 07:25 17 96 35 12/23/16 07:21 98.6 122/66 Intake and Output 12/22/16 12/22/16 12/23/16 15:00 23:00 07:00 Intake Total 50 ml 850 ml 980 ml Output Total 850 ml 1000 ml Balance 50 ml 0 ml -20 ml Exam Constitutional: frail, other (lethargic but easily arousable ) Respiratory: diminished breath sounds (extensive b/l with some wheezes ), other (on Vent and FiO2 of 45 % ), wheezing (mild) Cardiovascular: regular rate and rhythm Gastrointestinal: non-tender, other (G tube in place ), soft Musculoskeletal: other (muscle wasting ) Extremities: normal pulses Neurological: lethargic, other (generalised weakness/quadriparesis ) Results Result Diagram: 12/21/1652912/21/16529 Results 24 hrs Laboratory Tests Test 12/23/16 03:53 Vancomycin Level Trough 18.0 Medications Medications Current Medications Acetaminophen (Tylenol Tab) 650 mg Q6H PRN PEG PAIN LEVEL 1-3 OR FEVER Last administered on 12/20/16 08:41; Admin Dose 650 MG; Start 11/30/16 at 05:00 Morphine Sulfate (morphine) 2 mg Q4H PRN IV PAIN LEVEL 7-10 Last administered on 12/18/16 09:14; Admin Dose 2 MG; Start 11/30/16 at 05:00 Miscellaneous Information 1 ea NOTE XX ; Start 11/30/16 at 05:00 Glucose (Glutose) 15 gm Q15M PRN PO DECREASED GLUCOSE; Start 11/30/16 at 05:00 Glucose (Glutose) 22.5 gm Q15M PRN PO DECREASED GLUCOSE; Start 11/30/16 at 05: 00 Dextrose (D50w Syringe) 25 ml Q15M PRN IV DECREASED GLUCOSE; Start 11/30/16 at 05:00 Dextrose (D50w Syringe) 50 ml Q15M PRN IV DECREASED GLUCOSE; Start 11/30/16 at 05:00 Glucagon (Glucagen) 1 mg Q15M PRN IM DECREASED GLUCOSE; Start 11/30/16 at 05:00 Glucose (Glutose) 15 gm Q15M PRN BUCCAL DECREASED GLUCOSE; Start 11/30/16 at 05 :00 Metoprolol Tartrate (Lopressor) 2.5 mg Q2H PRN IV heart rate over 110 Last administered on 12/17/16 06:57; Admin Dose 2.5 MG; Start 12/01/16 at 12:00 Collagenase (Santyl) 1 applic DAILY TOP Last administered on 12/23/16 08:02; Admin Dose 1 APPLIC; Start 12/02/16 at 12:00 Collagenase (Santyl) 1 applic DAILY PRN TOP PER WOUND CARE ORDERS; Start at 11:30 Metoprolol Tartrate (Lopressor) 50 mg BID GTB Last administered on 12/23/16 08: 01; Admin Dose 50 MG; Start 12/04/16 at 21:00 Famotidine (Pepcid) 20 mg DAILY GTB Last administered on 12/23/16 08:01; Admin Dose 20 MG; Start 12/05/16 at 09:00 Losartan Potassium (Cozaar) 25 mg BID PO Last administered on 12/23/16 08:01; Admin Dose 25 MG; Start 12/05/16 at 21:00 Hydralazine HCl 10 mg 10 mg Q6H PRN IV ELEVATED BLOOD PRESSURE Last administered on 12/13/16 18:26; Admin Dose 10 MG; Start 12/06/16 at 16:00 Vancomycin HCl 250 ml @ 125 mls/hr Q24H IVPB Last administered on 12/23/16 05: 21; Admin Dose 125 MLS/HR; Start 12/07/16 at 05:00 Ceftazidime/ Dextrose (Fortaz 2gm/50 ml (Pmx)) 50 ml @ 100 mls/hr Q8 IVPB Last administered on 12/23/16 06:21; Admin Dose 100 MLS/HR; Start 12/09/16 at 14 :00 Amikacin Sulfate (Amikacin Iv Per Pharmacy) AMIKACIN PER PHARMACY NOTE XX ; Start 12/10/16 at 19:00 Ketoconazole (Nizoral Shampoo) 1 applic Q12 TOP Last administered on 12/23/16 08:03; Admin Dose 1 APPLIC; Start 12/14/16 at 21:00 Ketoconazole 1 applic 1 applic BID TOP Last administered on 12/23/16 08:02; Admin Dose 1 APPLIC; Start 12/14/16 at 21:00 Amikacin Sulfate/ Sodium Chloride (Amikacin/NS) 150 ml @ 150 mls/hr Q72H IVPB Last administered on 12/20/16 23:23; Admin Dose 150 MLS/HR; Start 12/21/16 at 00: 00 Fluconazole (Diflucan) 100 mg DAILY PO Last administered on 12/23/16 08:01; Admin Dose 100 MG; Start 12/20/16 at 13:30 CHARLETTE RUTHERFORD December 23, 2016 09:50
[2016-12-23 10:43] LABS: ADD SCAN DIFF NO
[2016-12-23 10:47] LABS: BASOPHILS % 0.2 % (0.0-2.0); EOSINOPHILS # 0.4 10^3/ul (0.0-0.5); HEMATOCRIT 25.4 % (42.0-52.0); HEMOGLOBIN 7.6 g/dl (14.0-18.0); LYMPHOCYTES # 0.9 10^3/ul (0.8-2.9); LYMPHOCYTES % 4.7 % (15.0-51.0); MEAN CORPUSCULAR HEMOGLOBIN 27.9 pg (29.0-33.0); MEAN CORPUSCULAR HGB CONC 29.9 g/dl (32.0-37.0); MEAN CORPUSCULAR VOLUME 93.4 fl (82.0-101.0); MEAN PLATELET VOLUME 10.9 fl (7.4-10.4); MONOCYTE # 0.9 10^3/ul (0.3-0.9); MONOCYTES % 4.5 % (0.0-11.0); NEUTROPHIL # 17.3 10^3/ul (1.6-7.5); NEUTROPHILS % 87.8 % (39.0-77.0); PLATELET COUNT 212 10^3/UL (140-415); RED BLOOD COUNT 2.72 10^6/ul (4.70-6.10); RED CELL DISTRIBUTION WIDTH 16.9 % (11.5-14.5); WHITE BLOOD COUNT 19.7 10^3/ul (4.8-10.8)
[2016-12-23 11:13] LABS: POTASSIUM 3.3 mmol/L (3.5-5.1)
[2016-12-23 11:15] LABS: CREATININE 0.48 mg/dl (0.61-1.24)
[2016-12-23 11:16] LABS: PHOSPHORUS 2.6 mg/dl (2.5-4.9)
[2016-12-23 11:17] LABS: CALCIUM 10.1 mg/dl (8.4-10.2); MAGNESIUM 2.2 mg/dl (1.7-2.5)
--- NOTE | 2016-12-23 11:17 | CONS ---
Date/Time of Note Date/Time of Note DATE: 12/23/16 TIME: 11:16 Consult Date/Type/Reason Admit Date/Time Nov 30, 2016 at 04:54 Initial Consult Date 12/01/16 Type of Consultation: pulmonary ICU Ordering Provider: CHARLETTE RUTHERFORD Subjective Patient's condition is largely unchanged Objective Vital Signs Date Time Temp Pulse Resp B/P Pulse Ox O2 Delivery O2 Flow Rate FiO2 12/23/16 11:11 99.0 99 22 131/60 100 12/23/16 09:45 35 Intake and Output 12/22/16 12/22/16 12/23/16 15:00 23:00 07:00 Intake Total 50 ml 850 ml 980 ml Output Total 850 ml 1000 ml Balance 50 ml 0 ml -20 ml Exam PHYSICAL EXAMINATION GENERAL: Elderly gentleman, on mechanical ventilation appears comfortable VITAL SIGNS: see below. HEENT: Pupils equal, round, and reactive to light. Tracheostomy site clean and intact. CARDIAC: S1, S2, 1/6 systolic ejection murmur CHEST: Diminished air entry bilaterally. ABDOMEN: Mildly distended. Bowel sounds present no guarding or rebound EXTREMITIES: No cyanosis, clubbing edema +1 NEUROLOGIC: unable to assess Results/Medications Result Diagram: 12/23/16 1025 12/21/16 0530 Results 24 hrs Laboratory Tests Test 12/23/16 03:53 12/23/16 10:25 Vancomycin Level Trough 18.0 White Blood Count 19.7 H Red Blood Count 2.72 L Hemoglobin 7.6 L Hematocrit 25.4 L Mean Corpuscular Volume 93.4 Mean Corpuscular Hemoglobin 27.9 L Mean Corpuscular Hemoglobin Concent 29.9 L Red Cell Distribution Width 16.9 H Platelet Count 212 Mean Platelet Volume 10.9 H Neutrophils % 87.8 H Lymphocytes % 4.7 L Monocytes % 4.5 Eosinophils % 2.0 Basophils % 0.2 Nucleated Red Blood Cells % 0.0 Neutrophils # 17.3 H Lymphocytes # 0.9 Monocytes # 0.9 Eosinophils # 0.4 Basophils # 0.0 Nucleated Red Blood Cells # 0.0 Medications Current Medications Acetaminophen (Tylenol Tab) 650 mg Q6H PRN PEG PAIN LEVEL 1-3 OR FEVER Last administered on 12/20/16t 08:41; Admin Dose 650 MG; Start 11/30/16 at 05:00 Morphine Sulfate (morphine) 2 mg Q4H PRN IV PAIN LEVEL 7-10 Last administered on 12/18/16 09:14; Admin Dose 2 MG; Start 11/30/16 at 05:00 Miscellaneous Information 1 ea NOTE XX ; Start 11/30/16 at 05:00 Glucose (Glutose) 15 gm Q15M PRN PO DECREASED GLUCOSE; Start 11/30/16 at 05:00 Glucose (Glutose) 22.5 gm Q15M PRN PO DECREASED GLUCOSE; Start 11/30/16 at 05: 00 Dextrose (D50w Syringe) 25 ml Q15M PRN IV DECREASED GLUCOSE; Start 11/30/16 at 05:00 Dextrose (D50w Syringe) 50 ml Q15M PRN IV DECREASED GLUCOSE; Start 11/30/16 at 05:00 Glucagon (Glucagen) 1 mg Q15M PRN IM DECREASED GLUCOSE; Start 11/30/16 at 05:00 Glucose (Glutose) 15 gm Q15M PRN BUCCAL DECREASED GLUCOSE; Start 11/30/16 at 05 :00 Metoprolol Tartrate (Lopressor) 2.5 mg Q2H PRN IV heart rate over 110 Last administered on 12/17/16 06:57; Admin Dose 2.5 MG; Start 12/01/16 at 12:00 Collagenase (Santyl) 1 applic DAILY TOP Last administered on 12/23/16 08:02; Admin Dose 1 APPLIC; Start 12/02/16 at 12:00 Collagenase (Santyl) 1 applic DAILY PRN TOP PER WOUND CARE ORDERS; Start at 11:30 Metoprolol Tartrate (Lopressor) 50 mg BID GTB Last administered on 12/23/16 08: 01; Admin Dose 50 MG; Start 12/04/16 at 21:00 Famotidine (Pepcid) 20 mg DAILY GTB Last administered on 12/23/16 08:01; Admin Dose 20 MG; Start 12/05/16 at 09:00 Losartan Potassium (Cozaar) 25 mg BID PO Last administered on 12/23/16 08:01; Admin Dose 25 MG; Start 12/05/16 at 21:00 Hydralazine HCl 10 mg 10 mg Q6H PRN IV ELEVATED BLOOD PRESSURE Last administered on 12/13/16 18:26; Admin Dose 10 MG; Start 12/06/16 at 16:00 Ceftazidime/ Dextrose (Fortaz 2gm/50 ml (Pmx)) 50 ml @ 100 mls/hr Q8 IVPB Last administered on 12/23/16 06:21; Admin Dose 100 MLS/HR; Start 12/09/16 at 14 :00 Amikacin Sulfate (Amikacin Iv Per Pharmacy) AMIKACIN PER PHARMACY NOTE XX ; Start 12/10/16 at 19:00 Ketoconazole (Nizoral Shampoo) 1 applic Q12 TOP Last administered on 12/23/16 08:03; Admin Dose 1 APPLIC; Start 12/14/16 at 21:00 Ketoconazole 1 applic 1 applic BID TOP Last administered on 12/23/16 08:02; Admin Dose 1 APPLIC; Start 12/14/16 at 21:00 Amikacin Sulfate/ Sodium Chloride (Amikacin/NS) 150 ml @ 150 mls/hr Q72H IVPB Last administered on 12/20/16 23:23; Admin Dose 150 MLS/HR; Start 12/21/16 at 00: 00 Fluconazole 100 mg 100 mg DAILY PO Last administered on 12/23/16 08:01; Admin Dose 100 MG; Start 12/20/16 at 13:30 Vancomycin HCl/ Sodium Chloride (Vancocin/NS) 150 ml @ 75 mls/hr Q24H IVPB ; Start 12/24/16 at 06:00 Assessment/Plan Chief Complaint/Hosp Course Assessment 1. Hypoxemic respiratory failure on mechanical ventilation via tracheostomy 2. Persistent leukocytosis likely polymicrobial sepsis 3. Mild dehydration 4. Anemia of chronic disease 5. History of CVA 6. Dysphagia with G-tube Plan 1. Continue mechanical ventilation 2. Continue broad-spectrum antibiotics questionable underlying malignancy versus abscess 3. Tube feeding as tolerated 4. Correction of electrolyte abnormalities 5. DVT GI prophylaxis Disposition Continue telemetry care Overall prognosis very poor consider palliative care consult Problems: JOSEF HERRING MD, [facility] December 23, 2016 11:17
[2016-12-23] MEDS ORDERED: SOD CHLORIDE 0.9% 250 ML IV* ONE (11:48)
[2016-12-23] MEDS: POTASSIUM CHLORIDE 20 MEQ POWDER FOR ORAL SOLN NGT SCH ×2 (13:22→16:28)
--- NOTE | 2016-12-23 13:32 | CONS ---
Date/Time of Note Date/Time of Note DATE: 12/23/16 TIME: 13:32 Assessment/Plan Assessment/Plan Chief Complaint/Hosp Course SUBJECTIVE: No events overnight. No fevers. The patient is lethargic, lying comfortably in bed. MICROBIOLOGY: Urine culture from December 17 remains negative. INDWELLINGS: Trach, PEG, Cherry, PICC line. ANTIMICROBIALS: The patient remains on: 1. Amikacin. 2. Fortaz. 3. Vancomycin. 4. Diflucan PHYSICAL EXAMINATION: GENERAL: This is well-developed, fragile, elderly man who is in no distress. HEENT: Head atraumatic, normocephalic. Sclerae anicteric. Buccal mucosa dry. NECK: Supple. Tracheostomy present. CHEST: Rise symmetrical. Breath sounds clear, diminished to bases. HEART: S1, S2. ABDOMEN: Soft, bowel sounds present. EXTREMITIES: No cyanosis. ASSESSMENT: 1. Sepsis 2 to #2. 2. Healthcare-associated pneumonia with sputum culture growing Pseudomonas aeruginosa and Providencia stuartii. 3. Sacral decubitus ulcer, improving. 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 5. Hypertension. 6. Dysphagia. PLAN: Remains unchanged, wbc scan consistent w PNA, continue abx, pulmonary toilet, f/u pulmonary rec-s ?needs bronchoscopy [facility] staff Problems: Consultation Date/Type/Reason Admit Date/Time Nov 30, 2016 at 04:54 Initial Consult Date 12/01/16 Type of Consultation: id Referring Provider: CHARLETTE RUTHERFORD Exam/Review of Systems Vital Signs Vitals Vital Signs Date Time Temp Pulse Resp B/P Pulse Ox O2 Delivery O2 Flow Rate FiO2 12/23/16 12:22 93 12/23/16 11:59 17 95 45 12/23/16 11:11 99.0 131/60 Intake and Output 12/22/16 12/22/16 12/23/16 15:00 23:00 07:00 Intake Total 50 ml 850 ml 980 ml Output Total 850 ml 1000 ml Balance 50 ml 0 ml -20 ml Results Result Diagram: 12/23/16 1025 12/23/16 1025 Results 24 hrs Laboratory Tests Test 12/23/16 03:53 12/23/16 10:25 Vancomycin Level Trough 18.0 White Blood Count 19.7 H Red Blood Count 2.72 L Hemoglobin 7.6 L Hematocrit 25.4 L Mean Corpuscular Volume 93.4 Mean Corpuscular Hemoglobin 27.9 L Mean Corpuscular Hemoglobin Concent 29.9 L Red Cell Distribution Width 16.9 H Platelet Count 212 Mean Platelet Volume 10.9 H Neutrophils % 87.8 H Lymphocytes % 4.7 L Monocytes % 4.5 Eosinophils % 2.0 Basophils % 0.2 Nucleated Red Blood Cells % 0.0 Neutrophils # 17.3 H Lymphocytes # 0.9 Monocytes # 0.9 Eosinophils # 0.4 Basophils # 0.0 Nucleated Red Blood Cells # 0.0 Sodium Level 140 Potassium Level 3.3 L Chloride Level 98 Carbon Dioxide Level 34 H Anion Gap 11 Blood Urea Nitrogen 36 H Creatinine 0.48 L Glucose Level 126 Calcium Level 10.1 Phosphorus Level 2.6 Magnesium Level 2.2 Medications Medications Current Medications Acetaminophen (Tylenol Tab) 650 mg Q6H PRN PEG PAIN LEVEL 1-3 OR FEVER Last administered on 12/20/16 08:41; Admin Dose 650 MG; Start 11/30/16 at 05:00 Morphine Sulfate (morphine) 2 mg Q4H PRN IV PAIN LEVEL 7-10 Last administered on 12/18/16 09:14; Admin Dose 2 MG; Start 11/30/16 at 05:00 Miscellaneous Information 1 ea NOTE XX ; Start 11/30/16 at 05:00 Glucose (Glutose) 15 gm Q15M PRN PO DECREASED GLUCOSE; Start 11/30/16 at 05:00 Glucose (Glutose) 22.5 gm Q15M PRN PO DECREASED GLUCOSE; Start 11/30/16 at 05: 00 Dextrose (D50w Syringe) 25 ml Q15M PRN IV DECREASED GLUCOSE; Start 11/30/16 at 05:00 Dextrose (D50w Syringe) 50 ml Q15M PRN IV DECREASED GLUCOSE; Start 11/30/16 at 05:00 Glucagon (Glucagen) 1 mg Q15M PRN IM DECREASED GLUCOSE; Start 11/30/16 at 05:00 Glucose (Glutose) 15 gm Q15M PRN BUCCAL DECREASED GLUCOSE; Start 11/30/16 at 05 :00 Metoprolol Tartrate (Lopressor) 2.5 mg Q2H PRN IV heart rate over 110 Last administered on 12/17/16 06:57; Admin Dose 2.5 MG; Start 12/01/16 at 12:00 Collagenase (Santyl) 1 applic DAILY TOP Last administered on 12/23/16 08:02; Admin Dose 1 APPLIC; Start 12/02/16 at 12:00 Collagenase (Santyl) 1 applic DAILY PRN TOP PER WOUND CARE ORDERS; Start at 11:30 Metoprolol Tartrate (Lopressor) 50 mg BID GTB Last administered on 12/23/16 08: 01; Admin Dose 50 MG; Start 12/04/16 at 21:00 Famotidine (Pepcid) 20 mg DAILY GTB Last administered on 12/23/16 08:01; Admin Dose 20 MG; Start 12/05/16 at 09:00 Losartan Potassium (Cozaar) 25 mg BID PO Last administered on 12/23/16 08:01; Admin Dose 25 MG; Start 12/05/16 at 21:00 Hydralazine HCl 10 mg 10 mg Q6H PRN IV ELEVATED BLOOD PRESSURE Last administered on 12/13/16 18:26; Admin Dose 10 MG; Start 12/06/16 at 16:00 Ceftazidime/ Dextrose (Fortaz 2gm/50 ml (Pmx)) 50 ml @ 100 mls/hr Q8 IVPB Last administered on 12/23/16 13:26; Admin Dose 100 MLS/HR; Start 12/09/16 at 14 :00 Amikacin Sulfate (Amikacin Iv Per Pharmacy) AMIKACIN PER PHARMACY NOTE XX ; Start 12/10/16 at 19:00 Ketoconazole (Nizoral Shampoo) 1 applic Q12 TOP Last administered on 12/23/16 08:03; Admin Dose 1 APPLIC; Start 12/14/16 at 21:00 Ketoconazole 1 applic 1 applic BID TOP Last administered on 12/23/16 08:02; Admin Dose 1 APPLIC; Start 12/14/16 at 21:00 Amikacin Sulfate/ Sodium Chloride (Amikacin/NS) 150 ml @ 150 mls/hr Q72H IVPB Last administered on 12/20/16 23:23; Admin Dose 150 MLS/HR; Start 12/21/16 at 00: 00 Fluconazole 100 mg 100 mg DAILY PO Last administered on 12/23/16 08:01; Admin Dose 100 MG; Start 12/20/16 at 13:30 Vancomycin HCl/ Sodium Chloride (Vancocin/NS) 150 ml @ 75 mls/hr Q24H IVPB ; Start 12/24/16 at 06:00 Potassium Chloride (Potassium Chloride Pwd/Soln) 40 meq Q4H NGT Last administered on 12/23/16t 13:22; Admin Dose 40 MEQ; Start 12/23/16 at 12:11; Stop 12/23/16 at 16:12 ELI VALDEZ NP December 23, 2016 13:32
[2016-12-23] MEDS: IPRATROPIUM (HFA) 12.9 GM INHALER INH PRN (19:31)
[2016-12-23] MEDS: LEVALBUTEROL (HFA) 15 GM INHALER INH PRN (19:31)
[2016-12-23] MEDS: SOD CHLORIDE 0.9% IVPB SCH (23:04)
[2016-12-23] MEDS: AMIKACIN IVPB SCH (23:04)
[2016-12-24] VITALS (23 sets, daily range): BP systolic 116–132; BP diastolic 60–88; PULSE 85–103; RESP 14–25
[2016-12-24] MEDS: CEFTAZIDIME 2GM/50 ML (PMX) 50 ML IVPB SCH ×3 (03:57→21:19)
[2016-12-24] MEDS: VANCOMYCIN 750 MG in SOD CHLORIDE 0.9% 150 ML IVPB SCH (04:49)
[2016-12-24] MEDS: LEVALBUTEROL (HFA) 15 GM INHALER INH SCH ×4 (08:00→23:53)
[2016-12-24] MEDS: IPRATROPIUM (HFA) 12.9 GM INHALER INH SCH ×4 (08:00→23:53)
[2016-12-24] MEDS: LOSARTAN 25 MG TAB PO SCH ×2 (08:13→21:18)
[2016-12-24] MEDS: FAMOTIDINE 20 MG TAB GTB SCH (08:13)
[2016-12-24] MEDS: METOPROLOL 25 MG TAB GTB SCH ×2 (08:14→21:18)
[2016-12-24] MEDS: FLUCONAZOLE 100 MG TAB PO SCH (08:14)
[2016-12-24] MEDS: KETOCONAZOLE 2% SHAMPOO 120 ML BTL TOP SCH ×2 (08:15→21:19)
[2016-12-24] MEDS: COLLAGENASE 30 GM TUBE TOP SCH (08:15)
[2016-12-24] MEDS: KETOCONAZOLE 2% 15 GM CR TOP SCH ×2 (08:15→21:19)
[2016-12-24 08:28] LABS: ADD SCAN DIFF NO
[2016-12-24 08:49] LABS: BASOPHILS % 0.3 % (0.0-2.0); EOSINOPHILS # 0.5 10^3/ul (0.0-0.5); HEMATOCRIT 28.6 % (42.0-52.0); HEMOGLOBIN 8.4 g/dl (14.0-18.0); LYMPHOCYTES # 1.1 10^3/ul (0.8-2.9); LYMPHOCYTES % 7.4 % (15.0-51.0); MEAN CORPUSCULAR HEMOGLOBIN 27.7 pg (29.0-33.0); MEAN CORPUSCULAR HGB CONC 29.4 g/dl (32.0-37.0); MEAN CORPUSCULAR VOLUME 94.4 fl (82.0-101.0); MEAN PLATELET VOLUME 11.6 fl (7.4-10.4); MONOCYTE # 0.8 10^3/ul (0.3-0.9); MONOCYTES % 5.2 % (0.0-11.0); NEUTROPHIL # 12.6 10^3/ul (1.6-7.5); NEUTROPHILS % 83.4 % (39.0-77.0); PLATELET COUNT 177 10^3/UL (140-415); RED BLOOD COUNT 3.03 10^6/ul (4.70-6.10); RED CELL DISTRIBUTION WIDTH 17.5 % (11.5-14.5); WHITE BLOOD COUNT 15.1 10^3/ul (4.8-10.8)
[2016-12-24 09:15] LABS: CALCIUM 10.5 mg/dl (8.4-10.2); CREATININE 0.5 mg/dl (0.61-1.24); POTASSIUM 4.4 mmol/L (3.5-5.1)
[2016-12-24 09:16] LABS: MAGNESIUM 2.3 mg/dl (1.7-2.5); PHOSPHORUS 2.9 mg/dl (2.5-4.9)
--- NOTE | 2016-12-24 11:42 | PN ---
Date/Time of Note Date/Time of Note DATE: 12/24/16 TIME: 11:32 Assessment/Plan VTE Prophylaxis VTE Prophylaxis Intervention: SCD's Lines/Catheters IV Catheter Type (from Nrsg): PICC Line Central line still needed: Yes (for IV access ) Urinary Cath still in place: Yes Reason Cath still needed: other (indicate) (monitor UOP ) Assessment/Plan Assessment/Plan 81 yo man with: 1. Sepsis, Bilateral Pneumonia, HCAP vs VAP, CT chest and also confirmd on WBC scan with severe bilateral PNA. Sputum cx polymicrobial with MDRO pseudomonas and providencia. Patient requiring at least Q2hrs suctioning for now with large amount of secretions Patient on quadriple abx with Diflucan, Amikacin, Vancomycin and Fortaz No other source identified on WBC scan besides PNA bilateral R>L Appreciate ID recs, WBC down to 15 today Lasix 20 mg IV x 1 today 2. Chronic vent-dependent respiratory failure, stable on Vent, oxygenating well on FiO2 45% currently. With also extensive b/l PNA, large amount of secretions Continue Vancomycin, Ceftazidime, Diflucan and Amikacin. Appreciate Pulmonary and ID recommendations 3. Hypokalemia/Hypomagnesemia: BMP Ok today, will replete prn 4. Severe anemia on admission, possible GI bleeding, but if so resolved now. Continue PPI. S/p 1 unit pRBC yesterday. No evidence for active bleeding for now. Back on Iron supplement. 5. Elevated troponins in setting of a fib with RVR and sepsis, CAD In SR currently and HR controlled with Bblocker, up to 50 mg po bid. Cardiology prn. No anticoag due to Anemia 6. MRSA nares: Bactroban, on Vancomycin 7. Sacral Decub, seems to be healing well per RN and wound care but cx polymicrobial with MDRO. Abx adjusted by ID and on wound care protocol. 8. Hypertension: Continue Metoprolol at 50 mg po bid and Losartan added as BP tolerating. Prophylaxis: Continue SCDs and Famotidine Disposition: On contact isolation and Telemetry. WBC scan confirming PNA as only current source of active infection, per ID continue current abx Plan for d/c back to SNF this week if WBC trending down and stable. Prognosis remains poor to fair at best. Patient is DNR Subjective 24 Hr Interval Summary Free Text/Dictation Patient lethargic and somewhat responsive but weak Lots of secretions requiring Q2 hrs suctioning at least Afebrile and WBC down to 15 today S/p 1 unit pRBC yesterday Exam/Review of Systems Vital Signs Vitals Vital Signs Date Time Temp Pulse Resp B/P Pulse Ox O2 Delivery O2 Flow Rate FiO2 12/24/16 09:41 92 12/24/16 09:10 14 97 45 12/24/16 07:27 98.1 116/66 Intake and Output 12/23/16 12/23/16 12/24/16 14:59 22:59 06:59 Intake Total 1410 ml 910 ml Output Total 700 ml 800 ml Balance 710 ml 110 ml Exam Constitutional: frail, other (lethargic ) Respiratory: diminished breath sounds (bilaterally ), other (on Vent with FiO2 45%), wheezing (audible, ? upper airway ) Cardiovascular: nl pulses, regular rate and rhythm Gastrointestinal: non-tender, other (tolerating Tubr feedings ), soft Musculoskeletal: other (muscle wasting chronic ) Extremities: normal pulses, other (trace to +1 anasarca ) Neurological: WEAVING LOOM OPERATOR II-XII intact, lethargic, other (generalized weakness ) Results Result Diagram: 12/24/16 0707 12/24/16 0707 Results 24 hrs Laboratory Tests Test 12/24/16 07:07 White Blood Count 15.1 #H Red Blood Count 3.03 L Hemoglobin 8.4 L Hematocrit 28.6 L Mean Corpuscular Volume 94.4 Mean Corpuscular Hemoglobin 27.7 L Mean Corpuscular Hemoglobin Concent 29.4 L Red Cell Distribution Width 17.5 H Platelet Count 177 Mean Platelet Volume 11.6 H Neutrophils % 83.4 H Lymphocytes % 7.4 L Monocytes % 5.2 Eosinophils % 3.0 Basophils % 0.3 Nucleated Red Blood Cells % 0.0 Neutrophils # 12.6 H Lymphocytes # 1.1 Monocytes # 0.8 Eosinophils # 0.5 Basophils # 0.0 Nucleated Red Blood Cells # 0.0 Sodium Level 138 Potassium Level 4.4 Chloride Level 102 Carbon Dioxide Level 35 H Anion Gap 5 L Blood Urea Nitrogen 37 H Creatinine 0.50 L Glucose Level 107 Calcium Level 10.5 H Phosphorus Level 2.9 Magnesium Level 2.3 Medications Medications Current Medications Acetaminophen (Tylenol Tab) 650 mg Q6H PRN PEG PAIN LEVEL 1-3 OR FEVER Last administered on 12/20/16 08:41; Admin Dose 650 MG; Start 11/30/16 at 05:00 Morphine Sulfate (morphine) 2 mg Q4H PRN IV PAIN LEVEL 7-10 Last administered on 12/18/16 09:14; Admin Dose 2 MG; Start 11/30/16 at 05:00 Miscellaneous Information 1 ea NOTE XX ; Start 11/30/16 at 05:00 Glucose (Glutose) 15 gm Q15M PRN PO DECREASED GLUCOSE; Start 11/30/16 at 05:00 Glucose (Glutose) 22.5 gm Q15M PRN PO DECREASED GLUCOSE; Start 11/30/16 at 05: 00 Dextrose (D50w Syringe) 25 ml Q15M PRN IV DECREASED GLUCOSE; Start 11/30/16 at 05:00 Dextrose (D50w Syringe) 50 ml Q15M PRN IV DECREASED GLUCOSE; Start 11/30/16 at 05:00 Glucagon (Glucagen) 1 mg Q15M PRN IM DECREASED GLUCOSE; Start 11/30/16 at 05:00 Glucose (Glutose) 15 gm Q15M PRN BUCCAL DECREASED GLUCOSE; Start 11/30/16 at 05 :00 Metoprolol Tartrate (Lopressor) 2.5 mg Q2H PRN IV heart rate over 110 Last administered on 12/17/16 06:57; Admin Dose 2.5 MG; Start 12/01/16 at 12:00 Collagenase (Santyl) 1 applic DAILY TOP Last administered on 12/24/16 08:15; Admin Dose 1 APPLIC; Start 12/02/16 at 12:00 Collagenase (Santyl) 1 applic DAILY PRN TOP PER WOUND CARE ORDERS; Start at 11:30 Metoprolol Tartrate (Lopressor) 50 mg BID GTB Last administered on 12/24/16 08: 14; Admin Dose 50 MG; Start 12/04/16 at 21:00 Famotidine (Pepcid) 20 mg DAILY GTB Last administered on 12/24/16 08:13; Admin Dose 20 MG; Start 12/05/16 at 09:00 Losartan Potassium (Cozaar) 25 mg BID PO Last administered on 12/24/16 08:13; Admin Dose 25 MG; Start 12/05/16 at 21:00 Hydralazine HCl 10 mg 10 mg Q6H PRN IV ELEVATED BLOOD PRESSURE Last administered on 12/13/16 18:26; Admin Dose 10 MG; Start 12/06/16 at 16:00 Ceftazidime/ Dextrose (Fortaz 2gm/50 ml (Pmx)) 50 ml @ 100 mls/hr Q8 IVPB Last administered on 12/24/16 03:57; Admin Dose 100 MLS/HR; Start 12/09/16 at 14 :00 Amikacin Sulfate (Amikacin Iv Per Pharmacy) AMIKACIN PER PHARMACY NOTE XX ; Start 12/10/16 at 19:00 Ketoconazole (Nizoral Shampoo) 1 applic Q12 TOP Last administered on 12/24/16 08:15; Admin Dose 1 APPLIC; Start 12/14/16 at 21:00 Ketoconazole 1 applic 1 applic BID TOP Last administered on 12/24/16 08:15; Admin Dose 1 APPLIC; Start 12/14/16 at 21:00 Amikacin Sulfate/ Sodium Chloride (Amikacin/NS) 150 ml @ 150 mls/hr Q72H IVPB Last administered on 12/23/16 23:04; Admin Dose 150 MLS/HR; Start 12/21/16 at 00: 00 Fluconazole 100 mg 100 mg DAILY PO Last administered on 12/24/16 08:14; Admin Dose 100 MG; Start 12/20/16 at 13:30 Vancomycin HCl/ Sodium Chloride (Vancocin/NS) 150 ml @ 75 mls/hr Q24H IVPB Last administered on 12/24/16 04:49; Admin Dose 75 MLS/HR; Start 12/24/16 at 06: 00 CHARLETTE RUTHERFORD December 24, 2016 11:42
[2016-12-24] MEDS ORDERED: FUROSEMIDE 20 MG INJ IV ONE (12:00)
--- NOTE | 2016-12-24 12:01 | CONS ---
Date/Time of Note Date/Time of Note DATE: 12/24/16 TIME: 12:00 Consult Date/Type/Reason Admit Date/Time Nov 30, 2016 at 04:54 Initial Consult Date 12/01/16 Type of Consultation: pulmonary Ordering Provider: CHARLETTE RUTHERFORD Subjective No significant changes appears comfortable Objective Vital Signs Date Time Temp Pulse Resp B/P Pulse Ox O2 Delivery O2 Flow Rate FiO2 12/24/16 11:33 98.9 88 25 132/67 95 12/24/16 09:10 45 Intake and Output 12/23/16 12/23/16 12/24/16 15:00 23:00 07:00 Intake Total 1410 ml 910 ml Output Total 700 ml 800 ml Balance 710 ml 110 ml Exam PHYSICAL EXAMINATION GENERAL: Elderly gentleman, on mechanical ventilation appears comfortable VITAL SIGNS: see below. HEENT: Pupils equal, round, and reactive to light. Tracheostomy site clean and intact. CARDIAC: S1, S2, 1/6 systolic ejection murmur CHEST: Diminished air entry bilaterally. ABDOMEN: Mildly distended. Bowel sounds present no guarding or rebound EXTREMITIES: No cyanosis, clubbing edema +1 NEUROLOGIC: unable to assess Results/Medications Result Diagram: 12/24/16 0707 12/24/16 0707 Results 24 hrs Laboratory Tests Test 12/24/16 07:07 White Blood Count 15.1 #H Red Blood Count 3.03 L Hemoglobin 8.4 L Hematocrit 28.6 L Mean Corpuscular Volume 94.4 Mean Corpuscular Hemoglobin 27.7 L Mean Corpuscular Hemoglobin Concent 29.4 L Red Cell Distribution Width 17.5 H Platelet Count 177 Mean Platelet Volume 11.6 H Neutrophils % 83.4 H Lymphocytes % 7.4 L Monocytes % 5.2 Eosinophils % 3.0 Basophils % 0.3 Nucleated Red Blood Cells % 0.0 Neutrophils # 12.6 H Lymphocytes # 1.1 Monocytes # 0.8 Eosinophils # 0.5 Basophils # 0.0 Nucleated Red Blood Cells # 0.0 Sodium Level 138 Potassium Level 4.4 Chloride Level 102 Carbon Dioxide Level 35 H Anion Gap 5 L Blood Urea Nitrogen 37 H Creatinine 0.50 L Glucose Level 107 Calcium Level 10.5 H Phosphorus Level 2.9 Magnesium Level 2.3 Medications Current Medications Acetaminophen (Tylenol Tab) 650 mg Q6H PRN PEG PAIN LEVEL 1-3 OR FEVER Last administered on 12/20/16 08:41; Admin Dose 650 MG; Start 11/30/16 at 05:00 Morphine Sulfate (morphine) 2 mg Q4H PRN IV PAIN LEVEL 7-10 Last administered on 12/18/16 09:14; Admin Dose 2 MG; Start 11/30/16 at 05:00 Miscellaneous Information 1 ea NOTE XX ; Start 11/30/16 at 05:00 Glucose (Glutose) 15 gm Q15M PRN PO DECREASED GLUCOSE; Start 11/30/16 at 05:00 Glucose (Glutose) 22.5 gm Q15M PRN PO DECREASED GLUCOSE; Start 11/30/16 at 05: 00 Dextrose (D50w Syringe) 25 ml Q15M PRN IV DECREASED GLUCOSE; Start 11/30/16 at 05:00 Dextrose (D50w Syringe) 50 ml Q15M PRN IV DECREASED GLUCOSE; Start 11/30/16 at 05:00 Glucagon (Glucagen) 1 mg Q15M PRN IM DECREASED GLUCOSE; Start 11/30/16 at 05:00 Glucose (Glutose) 15 gm Q15M PRN BUCCAL DECREASED GLUCOSE; Start 11/30/16 at 05 :00 Metoprolol Tartrate (Lopressor) 2.5 mg Q2H PRN IV heart rate over 110 Last administered on 12/17/16 06:57; Admin Dose 2.5 MG; Start 12/01/16 at 12:00 Collagenase (Santyl) 1 applic DAILY TOP Last administered on 12/24/16 08:15; Admin Dose 1 APPLIC; Start 12/02/16 at 12:00 Collagenase (Santyl) 1 applic DAILY PRN TOP PER WOUND CARE ORDERS; Start at 11:30 Metoprolol Tartrate (Lopressor) 50 mg BID GTB Last administered on 12/24/16 08: 14; Admin Dose 50 MG; Start 12/04/16 at 21:00 Famotidine (Pepcid) 20 mg DAILY GTB Last administered on 12/24/16 08:13; Admin Dose 20 MG; Start 12/05/16 at 09:00 Losartan Potassium (Cozaar) 25 mg BID PO Last administered on 12/24/16 08:13; Admin Dose 25 MG; Start 12/05/16 at 21:00 Hydralazine HCl 10 mg 10 mg Q6H PRN IV ELEVATED BLOOD PRESSURE Last administered on 12/13/16 18:26; Admin Dose 10 MG; Start 12/06/16 at 16:00 Ceftazidime/ Dextrose (Fortaz 2gm/50 ml (Pmx)) 50 ml @ 100 mls/hr Q8 IVPB Last administered on 12/24/16 03:57; Admin Dose 100 MLS/HR; Start 12/09/16 at 14 :00 Amikacin Sulfate (Amikacin Iv Per Pharmacy) AMIKACIN PER PHARMACY NOTE XX ; Start 12/10/16 at 19:00 Ketoconazole (Nizoral Shampoo) 1 applic Q12 TOP Last administered on 12/24/16 08:15; Admin Dose 1 APPLIC; Start 12/14/16 at 21:00 Ketoconazole 1 applic 1 applic BID TOP Last administered on 12/24/16 08:15; Admin Dose 1 APPLIC; Start 12/14/16 at 21:00 Amikacin Sulfate/ Sodium Chloride (Amikacin/NS) 150 ml @ 150 mls/hr Q72H IVPB Last administered on 12/23/16 23:04; Admin Dose 150 MLS/HR; Start 12/21/16 at 00: 00 Fluconazole 100 mg 100 mg DAILY PO Last administered on 12/24/16 08:14; Admin Dose 100 MG; Start 12/20/16 at 13:30 Vancomycin HCl/ Sodium Chloride (Vancocin/NS) 150 ml @ 75 mls/hr Q24H IVPB Last administered on 12/24/16 04:49; Admin Dose 75 MLS/HR; Start 12/24/16 at 06: 00 Furosemide (Lasix) 20 mg ONCE ONCE IV ; Start 12/24/16 at 12:00; Stop 12/24/16 at 12:01 Assessment/Plan Chief Complaint/Hosp Course Assessment 1. Acute on chronic hypoxemic respiratory failure on mechanical ventilation via tracheostomy 2. Persistent leukocytosis likely polymicrobial sepsis bilateral pneumonia 3. Mild dehydration 4. Anemia of chronic disease 5. History of CVA 6. Dysphagia with G-tube Plan 1. Continue mechanical ventilation 2. Continue broad-spectrum antibiotics 3. Tube feeding as tolerated 4. Correction of electrolyte abnormalities 5. DVT GI prophylaxis Disposition Continue telemetry care Overall prognosis very poor Problems: JO[facility]F HERRING MD, [facility] December 24, 2016 12:01
--- NOTE | 2016-12-24 14:18 | CONS ---
Date/Time of Note Date/Time of Note DATE: 12/24/16 TIME: 14:17 Assessment/Plan Assessment/Plan Chief Complaint/Hosp Course SUBJECTIVE: No events overnight. No fevers. The patient is lethargic, lying comfortably in bed. MICROBIOLOGY: Urine culture from December 17 remains negative. INDWELLINGS: Trach, PEG, Cherry, PICC line. ANTIMICROBIALS: The patient remains on: 1. Amikacin. 2. Fortaz. 3. Vancomycin. 4. Diflucan PHYSICAL EXAMINATION: GENERAL: This is well-developed, fragile, elderly man who is in no distress. HEENT: Head atraumatic, normocephalic. Sclerae anicteric. Buccal mucosa dry. NECK: Supple. Tracheostomy present. CHEST: Rise symmetrical. Breath sounds clear, diminished to bases. HEART: S1, S2. ABDOMEN: Soft, bowel sounds present. EXTREMITIES: No cyanosis. ASSESSMENT: 1. Sepsis 2 to #2. 2. Healthcare-associated pneumonia with sputum culture growing Pseudomonas aeruginosa and Providencia stuartii. 3. Sacral decubitus ulcer, improving. 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 5. Hypertension. 6. Dysphagia. PLAN: Remains unchanged, wbc scan consistent w PNA, continue abx, aggressive pulmonary toilet, f/u pulmonary rec-s [facility] staff Problems: Consultation Date/Type/Reason Admit Date/Time Nov 30, 2016 at 04:54 Initial Consult Date 12/01/16 Type of Consultation: ID Referring Provider: CHARLETTE RUTHERFORD Exam/Review of Systems Vital Signs Vitals Vital Signs Date Time Temp Pulse Resp B/P Pulse Ox O2 Delivery O2 Flow Rate FiO2 12/24/16 14:00 87 12/24/16 11:33 98.9 25 132/67 95 12/24/16 09:10 45 Intake and Output 12/23/16 12/23/16 12/24/16 15:00 23:00 07:00 Intake Total 1410 ml 910 ml Output Total 700 ml 800 ml Balance 710 ml 110 ml Results Result Diagram: 12/24/16 0707 12/24/16 07 Results 24 hrs Laboratory Tests Test 12/24/16 07:07 White Blood Count 15.1 #H Red Blood Count 3.03 L Hemoglobin 8.4 L Hematocrit 28.6 L Mean Corpuscular Volume 94.4 Mean Corpuscular Hemoglobin 27.7 L Mean Corpuscular Hemoglobin Concent 29.4 L Red Cell Distribution Width 17.5 H Platelet Count 177 Mean Platelet Volume 11.6 H Neutrophils % 83.4 H Lymphocytes % 7.4 L Monocytes % 5.2 Eosinophils % 3.0 Basophils % 0.3 Nucleated Red Blood Cells % 0.0 Neutrophils # 12.6 H Lymphocytes # 1.1 Monocytes # 0.8 Eosinophils # 0.5 Basophils # 0.0 Nucleated Red Blood Cells # 0.0 Sodium Level 138 Potassium Level 4.4 Chloride Level 102 Carbon Dioxide Level 35 H Anion Gap 5 L Blood Urea Nitrogen 37 H Creatinine 0.50 L Glucose Level 107 Calcium Level 10.5 H Phosphorus Level 2.9 Magnesium Level 2.3 Medications Medications Current Medications Acetaminophen (Tylenol Tab) 650 mg Q6H PRN PEG PAIN LEVEL 1-3 OR FEVER Last administered on 12/20/16 08:41; Admin Dose 650 MG; Start 11/30/16 at 05:00 Morphine Sulfate (morphine) 2 mg Q4H PRN IV PAIN LEVEL 7-10 Last administered on 12/18/16 09:14; Admin Dose 2 MG; Start 11/30/16 at 05:00 Miscellaneous Information 1 ea NOTE XX ; Start 11/30/16 at 05:00 Glucose (Glutose) 15 gm Q15M PRN PO DECREASED GLUCOSE; Start 11/30/16 at 05:00 Glucose (Glutose) 22.5 gm Q15M PRN PO DECREASED GLUCOSE; Start 11/30/16 at 05: 00 Dextrose (D50w Syringe) 25 ml Q15M PRN IV DECREASED GLUCOSE; Start 11/30/16 at 05:00 Dextrose (D50w Syringe) 50 ml Q15M PRN IV DECREASED GLUCOSE; Start 11/30/16 at 05:00 Glucagon (Glucagen) 1 mg Q15M PRN IM DECREASED GLUCOSE; Start 11/30/16 at 05:00 Glucose (Glutose) 15 gm Q15M PRN BUCCAL DECREASED GLUCOSE; Start 11/30/16 at 05 :00 Metoprolol Tartrate (Lopressor) 2.5 mg Q2H PRN IV heart rate over 110 Last administered on 12/17/16 06:57; Admin Dose 2.5 MG; Start 12/01/16 at 12:00 Collagenase (Santyl) 1 applic DAILY TOP Last administered on 12/24/16 08:15; Admin Dose 1 APPLIC; Start 12/02/16 at 12:00 Collagenase (Santyl) 1 applic DAILY PRN TOP PER WOUND CARE ORDERS; Start at 11:30 Metoprolol Tartrate (Lopressor) 50 mg BID GTB Last administered on 12/24/16 08: 14; Admin Dose 50 MG; Start 12/04/16 at 21:00 Famotidine (Pepcid) 20 mg DAILY GTB Last administered on 12/24/16 08:13; Admin Dose 20 MG; Start 12/05/16 at 09:00 Losartan Potassium (Cozaar) 25 mg BID PO Last administered on 12/24/16 08:13; Admin Dose 25 MG; Start 12/05/16 at 21:00 Hydralazine HCl 10 mg 10 mg Q6H PRN IV ELEVATED BLOOD PRESSURE Last administered on 12/13/16 18:26; Admin Dose 10 MG; Start 12/06/16 at 16:00 Ceftazidime/ Dextrose (Fortaz 2gm/50 ml (Pmx)) 50 ml @ 100 mls/hr Q8 IVPB Last administered on 12/24/16 14:05; Admin Dose 100 MLS/HR; Start 12/09/16 at 14 :00 Amikacin Sulfate (Amikacin Iv Per Pharmacy) AMIKACIN PER PHARMACY NOTE XX ; Start 12/10/16 at 19:00 Ketoconazole (Nizoral Shampoo) 1 applic Q12 TOP Last administered on 12/24/16 08:15; Admin Dose 1 APPLIC; Start 12/14/16 at 21:00 Ketoconazole 1 applic 1 applic BID TOP Last administered on 12/24/16 08:15; Admin Dose 1 APPLIC; Start 12/14/16 at 21:00 Amikacin Sulfate/ Sodium Chloride (Amikacin/NS) 150 ml @ 150 mls/hr Q72H IVPB Last administered on 12/23/16 23:04; Admin Dose 150 MLS/HR; Start 12/21/16 at 00: 00 Fluconazole 100 mg 100 mg DAILY PO Last administered on 12/24/16 08:14; Admin Dose 100 MG; Start 12/20/16 at 13:30 Vancomycin HCl/ Sodium Chloride (Vancocin/NS) 150 ml @ 75 mls/hr Q24H IVPB Last administered on 12/24/16t 04:49; Admin Dose 75 MLS/HR; Start 12/24/16 at 06: 00 ELI VALDEZ NP December 24, 2016 14:18
[2016-12-25] VITALS (26 sets, daily range): BP systolic 105–137; BP diastolic 56–72; PULSE 79–101; RESP 14–20
[2016-12-25] MEDS: CEFTAZIDIME 2GM/50 ML (PMX) 50 ML IVPB SCH ×3 (05:27→21:34)
[2016-12-25] MEDS: VANCOMYCIN 750 MG in SOD CHLORIDE 0.9% 150 ML IVPB SCH (05:27)
[2016-12-25 06:23] LABS: ADD SCAN DIFF NO
[2016-12-25 06:26] LABS: BASOPHILS % 0.2 % (0.0-2.0); EOSINOPHILS # 0.5 10^3/ul (0.0-0.5); EOSINOPHILS % 3.2 % (0.0-7.0); HEMOGLOBIN 8.2 g/dl (14.0-18.0); MEAN CORPUSCULAR HGB CONC 29.3 g/dl (32.0-37.0); MEAN CORPUSCULAR VOLUME 95.6 fl (82.0-101.0); MEAN PLATELET VOLUME 11.2 fl (7.4-10.4); MONOCYTE # 0.8 10^3/ul (0.3-0.9); NEUTROPHIL # 13.9 10^3/ul (1.6-7.5); NEUTROPHILS % 84.7 % (39.0-77.0); PLATELET COUNT 176 10^3/UL (140-415); RED BLOOD COUNT 2.93 10^6/ul (4.70-6.10); RED CELL DISTRIBUTION WIDTH 17.3 % (11.5-14.5); WHITE BLOOD COUNT 16.4 10^3/ul (4.8-10.8)
[2016-12-25 06:50] LABS: MAGNESIUM 2.3 mg/dl (1.7-2.5); PHOSPHORUS 3.2 mg/dl (2.5-4.9)
[2016-12-25 06:55] LABS: CALCIUM 10.4 mg/dl (8.4-10.2); CREATININE 0.54 mg/dl (0.61-1.24); POTASSIUM 3.4 mmol/L (3.5-5.1)
[2016-12-25] MEDS: IPRATROPIUM (HFA) 12.9 GM INHALER INH SCH ×2 (08:10→16:48)
[2016-12-25] MEDS: LEVALBUTEROL (HFA) 15 GM INHALER INH SCH ×2 (08:10→16:48)
[2016-12-25] MEDS: FLUCONAZOLE 100 MG TAB PO SCH (09:05)
[2016-12-25] MEDS: FAMOTIDINE 20 MG TAB GTB SCH (09:05)
[2016-12-25] MEDS: METOPROLOL 25 MG TAB GTB SCH ×2 (09:05→20:21)
[2016-12-25] MEDS: LOSARTAN 25 MG TAB PO SCH ×2 (09:06→20:21)
[2016-12-25] MEDS: KETOCONAZOLE 2% SHAMPOO 120 ML BTL TOP SCH ×2 (09:11→20:22)
[2016-12-25] MEDS: KETOCONAZOLE 2% 15 GM CR TOP SCH ×2 (09:11→20:21)
[2016-12-25] MEDS: COLLAGENASE 30 GM TUBE TOP SCH (09:12)
--- NOTE | 2016-12-25 10:57 | PN ---
Date/Time of Note Date/Time of Note DATE: 12/25/16 TIME: 10:49 Assessment/Plan VTE Prophylaxis VTE Prophylaxis Intervention: SCD's Lines/Catheters IV Catheter Type (from Nrsg): PICC Line Central line still needed: Yes (for IV access and abx ) Urinary Cath still in place: Yes Reason Cath still needed: other (indicate) (to monitor UOP ) Assessment/Plan Assessment/Plan 81 yo man with: 1. Sepsis, Bilateral Pneumonia, HCAP vs VAP, CT chest and also confirmd on WBC scan with severe bilateral PNA. Sputum cx polymicrobial with MDRO pseudomonas and providencia. Patient requiring at least Q2 to 3 hrs suctioning for now with copious amount of secretions Patient on quadriple abx with Diflucan, Amikacin, Vancomycin and Fortaz No other source identified on WBC scan besides PNA bilateral R>L Appreciate ID recs, WBC remains around 16 2. Chronic vent-dependent respiratory failure, stable on Vent, oxygenating well on FiO2 45% currently. With also extensive b/l PNA, large amount of secretions Continue Vancomycin, Ceftazidime, Diflucan and Amikacin. Appreciate Pulmonary and ID recommendations 3. Hypokalemia/Hypomagnesemia: BMP Ok today, will replete K today. 4. Severe anemia on admission, possible GI bleeding, but if so resolved now. Continue PPI. S/p 1 unit pRBC Friday. hb stable so far No evidence for active bleeding for now. Back on Iron supplement. 5. Elevated troponins in setting of a fib with RVR and sepsis, CAD In SR currently and HR controlled with Bblocker, up to 50 mg po bid. Cardiology prn. No anticoag due to Anemia 6. MRSA nares: Bactroban, on Vancomycin 7. Sacral Decub, seems to be healing well per RN and wound care but cx polymicrobial with MDRO. Abx adjusted by ID and on wound care protocol. 8. Hypertension: Continue Metoprolol at 50 mg po bid and Losartan added as BP tolerating. Prophylaxis: Continue SCDs and Famotidine Disposition: On contact isolation and Telemetry. WBC scan confirming PNA as only current source of active infection, per ID continue current abx and aggressive pulmonary toilet. Plan for d/c back to Subacute but may need LTAC this week if WBC trending down and stable. Prognosis remains poor to fair at best. Patient is DNR Subjective 24 Hr Interval Summary Free Text/Dictation Patient remains hemodynamically stable but still with persistent leukocytosis @ 16 today Still with copious secretions requiring q2 to 3 hrs suctioning May need LTAC placement Exam/Review of Systems Vital Signs Vitals Vital Signs Date Time Temp Pulse Resp B/P Pulse Ox O2 Delivery O2 Flow Rate FiO2 12/25/16 09:12 91 12/25/16 08:10 14 98 45 12/25/16 07:37 97.5 137/61 Intake and Output 12/24/16 12/24/16 12/25/16 15:00 23:00 07:00 Intake Total 850 ml 600 ml Output Total 2100 ml 1100 ml Balance -1250 ml -500 ml Exam Constitutional: frail, other (lethargic ) Respiratory: diminished breath sounds (bilaterally ), other (on Vent with Fio2 45% still ) Cardiovascular: nl pulses, regular rate and rhythm Gastrointestinal: non-tender, other (tolerating Tube feeidings ), soft Musculoskeletal: other (muscle wasting noted ) Extremities: normal pulses Neurological: DELIVERY SPECIALIST II-XII intact, lethargic, other (bed ridden so far with quadriparesis ) Results Result Diagram: 12/25/16 0535 12/25/16 0535 Results 24 hrs Laboratory Tests Test 12/25/16 05:35 White Blood Count 16.4 H Red Blood Count 2.93 L Hemoglobin 8.2 L Hematocrit 28.0 L Mean Corpuscular Volume 95.6 Mean Corpuscular Hemoglobin 28.0 L Mean Corpuscular Hemoglobin Concent 29.3 L Red Cell Distribution Width 17.3 H Platelet Count 176 Mean Platelet Volume 11.2 H Neutrophils % 84.7 H Lymphocytes % 6.0 L Monocytes % 5.0 Eosinophils % 3.2 Basophils % 0.2 Nucleated Red Blood Cells % 0.0 Neutrophils # 13.9 H Lymphocytes # 1.0 Monocytes # 0.8 Eosinophils # 0.5 Basophils # 0.0 Nucleated Red Blood Cells # 0.0 Sodium Level 140 Potassium Level 3.4 L Chloride Level 101 Carbon Dioxide Level 37 H Anion Gap 5 L Blood Urea Nitrogen 40 H Creatinine 0.54 L Glucose Level 133 Calcium Level 10.4 H Phosphorus Level 3.2 Magnesium Level 2.3 Medications Medications Current Medications Acetaminophen (Tylenol Tab) 650 mg Q6H PRN PEG PAIN LEVEL 1-3 OR FEVER Last administered on 12/20/16 08:41; Admin Dose 650 MG; Start 11/30/16 at 05:00 Morphine Sulfate (morphine) 2 mg Q4H PRN IV PAIN LEVEL 7-10 Last administered on 12/18/16 09:14; Admin Dose 2 MG; Start 11/30/16 at 05:00 Miscellaneous Information 1 ea NOTE XX ; Start 11/30/16 at 05:00 Glucose (Glutose) 15 gm Q15M PRN PO DECREASED GLUCOSE; Start 11/30/16 at 05:00 Glucose (Glutose) 22.5 gm Q15M PRN PO DECREASED GLUCOSE; Start 11/30/16 at 05: 00 Dextrose (D50w Syringe) 25 ml Q15M PRN IV DECREASED GLUCOSE; Start 11/30/16 at 05:00 Dextrose (D50w Syringe) 50 ml Q15M PRN IV DECREASED GLUCOSE; Start 11/30/16 at 05:00 Glucagon (Glucagen) 1 mg Q15M PRN IM DECREASED GLUCOSE; Start 11/30/16 at 05:00 Glucose (Glutose) 15 gm Q15M PRN BUCCAL DECREASED GLUCOSE; Start 11/30/16 at 05 :00 Metoprolol Tartrate (Lopressor) 2.5 mg Q2H PRN IV heart rate over 110 Last administered on 12/17/16 06:57; Admin Dose 2.5 MG; Start 12/01/16 at 12:00 Collagenase (Santyl) 1 applic DAILY TOP Last administered on 12/25/16 09:12; Admin Dose 1 APPLIC; Start 12/02/16 at 12:00 Collagenase (Santyl) 1 applic DAILY PRN TOP PER WOUND CARE ORDERS; Start at 11:30 Metoprolol Tartrate (Lopressor) 50 mg BID GTB Last administered on 12/25/16 09 :05; Admin Dose 50 MG; Start 12/04/16 at 21:00 Famotidine (Pepcid) 20 mg DAILY GTB Last administered on 12/25/16 09:05; Admin Dose 20 MG; Start 12/05/16 at 09:00 Losartan Potassium (Cozaar) 25 mg BID PO Last administered on 12/25/16 09:06; Admin Dose 25 MG; Start 12/05/16 at 21:00 Hydralazine HCl 10 mg 10 mg Q6H PRN IV ELEVATED BLOOD PRESSURE Last administered on 12/13/16 18:26; Admin Dose 10 MG; Start 12/06/16 at 16:00 Ceftazidime/ Dextrose (Fortaz 2gm/50 ml (Pmx)) 50 ml @ 100 mls/hr Q8 IVPB Last administered on 12/25/16 05:27; Admin Dose 100 MLS/HR; Start 12/09/16 at 14:00 Amikacin Sulfate (Amikacin Iv Per Pharmacy) AMIKACIN PER PHARMACY NOTE XX ; Start 12/10/16 at 19:00 Ketoconazole (Nizoral Shampoo) 1 applic Q12 TOP Last administered on 12/25/16 09:11; Admin Dose 1 APPLIC; Start 12/14/16 at 21:00 Ketoconazole 1 applic 1 applic BID TOP Last administered on 12/25/16 09:11; Admin Dose 1 APPLIC; Start 12/14/16 at 21:00 Amikacin Sulfate/ Sodium Chloride (Amikacin/NS) 150 ml @ 150 mls/hr Q72H IVPB Last administered on 12/23/16 23:04; Admin Dose 150 MLS/HR; Start 12/21/16 at 00: 00 Fluconazole 100 mg 100 mg DAILY PO Last administered on 12/25/16 09:05; Admin Dose 100 MG; Start 12/20/16 at 13:30 Vancomycin HCl/ Sodium Chloride (Vancocin/NS) 150 ml @ 75 mls/hr Q24H IVPB Last administered on 12/25/16 05:27; Admin Dose 75 MLS/HR; Start 12/24/16 at 06: 00 Potassium Chloride (Potassium Chloride Pwd/Soln) 40 meq ONCE ONCE GTB ; Start 12/25/16 at 11:00; Stop 12/25/16 at 11:01 CHARLETTE RUTHERFORD December 25, 2016 10:57
[2016-12-25] MEDS ORDERED: POTASSIUM CHLORIDE 20 MEQ POWDER FOR ORAL SOLN GTB ONE (11:00)
--- NOTE | 2016-12-25 11:32 | CONS ---
Date/Time of Note Date/Time of Note DATE: 12/25/16 TIME: 11:32 Consult Date/Type/Reason Admit Date/Time Nov 30, 2016 at 04:54 Initial Consult Date 12/01/16 Type of Consultation: pulmonary Ordering Provider: CHARLETTE RUTHERFORD Subjective No new events Objective Vital Signs Date Time Temp Pulse Resp B/P Pulse Ox O2 Delivery O2 Flow Rate FiO2 12/25/16 09:12 91 12/25/16 08:10 14 98 45 12/25/16 07:37 97.5 137/61 Intake and Output 12/24/16 12/24/16 12/25/16 15:00 23:00 07:00 Intake Total 850 ml 600 ml Output Total 2100 ml 1100 ml Balance -1250 ml -500 ml Exam PHYSICAL EXAMINATION GENERAL: Elderly gentleman, on mechanical ventilation appears comfortable VITAL SIGNS: see below. HEENT: Pupils equal, round, and reactive to light. Tracheostomy site clean and intact. CARDIAC: S1, S2, 1/6 systolic ejection murmur CHEST: Diminished air entry bilaterally. ABDOMEN: Mildly distended. Bowel sounds present no guarding or rebound EXTREMITIES: No cyanosis, clubbing edema +1 NEUROLOGIC: unable to assess Results/Medications Result Diagram: 12/25/16 0535 12/25/16 0535 Results 24 hrs Laboratory Tests Test 12/25/16 05:35 White Blood Count 16.4 H Red Blood Count 2.93 L Hemoglobin 8.2 L Hematocrit 28.0 L Mean Corpuscular Volume 95.6 Mean Corpuscular Hemoglobin 28.0 L Mean Corpuscular Hemoglobin Concent 29.3 L Red Cell Distribution Width 17.3 H Platelet Count 176 Mean Platelet Volume 11.2 H Neutrophils % 84.7 H Lymphocytes % 6.0 L Monocytes % 5.0 Eosinophils % 3.2 Basophils % 0.2 Nucleated Red Blood Cells % 0.0 Neutrophils # 13.9 H Lymphocytes # 1.0 Monocytes # 0.8 Eosinophils # 0.5 Basophils # 0.0 Nucleated Red Blood Cells # 0.0 Sodium Level 140 Potassium Level 3.4 L Chloride Level 101 Carbon Dioxide Level 37 H Anion Gap 5 L Blood Urea Nitrogen 40 H Creatinine 0.54 L Glucose Level 133 Calcium Level 10.4 H Phosphorus Level 3.2 Magnesium Level 2.3 Medications Current Medications Acetaminophen (Tylenol Tab) 650 mg Q6H PRN PEG PAIN LEVEL 1-3 OR FEVER Last administered on 12/20/16 08:41; Admin Dose 650 MG; Start 11/30/16 at 05:00 Morphine Sulfate (morphine) 2 mg Q4H PRN IV PAIN LEVEL 7-10 Last administered on 12/18/16 09:14; Admin Dose 2 MG; Start 11/30/16 at 05:00 Miscellaneous Information 1 ea NOTE XX ; Start 11/30/16 at 05:00 Glucose (Glutose) 15 gm Q15M PRN PO DECREASED GLUCOSE; Start 11/30/16 at 05:00 Glucose (Glutose) 22.5 gm Q15M PRN PO DECREASED GLUCOSE; Start 11/30/16 at 05: 00 Dextrose (D50w Syringe) 25 ml Q15M PRN IV DECREASED GLUCOSE; Start 11/30/16 at 05:00 Dextrose (D50w Syringe) 50 ml Q15M PRN IV DECREASED GLUCOSE; Start 11/30/16 at 05:00 Glucagon (Glucagen) 1 mg Q15M PRN IM DECREASED GLUCOSE; Start 11/30/16 at 05:00 Glucose (Glutose) 15 gm Q15M PRN BUCCAL DECREASED GLUCOSE; Start 11/30/16 at 05 :00 Metoprolol Tartrate (Lopressor) 2.5 mg Q2H PRN IV heart rate over 110 Last administered on 12/17/16 06:57; Admin Dose 2.5 MG; Start 12/01/16 at 12:00 Collagenase (Santyl) 1 applic DAILY TOP Last administered on 12/25/16 09:12; Admin Dose 1 APPLIC; Start 12/02/16 at 12:00 Collagenase (Santyl) 1 applic DAILY PRN TOP PER WOUND CARE ORDERS; Start at 11:30 Metoprolol Tartrate (Lopressor) 50 mg BID GTB Last administered on 12/25/16 09 :05; Admin Dose 50 MG; Start 12/04/16 at 21:00 Famotidine (Pepcid) 20 mg DAILY GTB Last administered on 12/25/16 09:05; Admin Dose 20 MG; Start 12/05/16 at 09:00 Losartan Potassium (Cozaar) 25 mg BID PO Last administered on 12/25/16 09:06; Admin Dose 25 MG; Start 12/05/16 at 21:00 Hydralazine HCl 10 mg 10 mg Q6H PRN IV ELEVATED BLOOD PRESSURE Last administered on 12/13/16 18:26; Admin Dose 10 MG; Start 12/06/16 at 16:00 Ceftazidime/ Dextrose (Fortaz 2gm/50 ml (Pmx)) 50 ml @ 100 mls/hr Q8 IVPB Last administered on 12/25/16 05:27; Admin Dose 100 MLS/HR; Start 12/09/16 at 14:00 Amikacin Sulfate (Amikacin Iv Per Pharmacy) AMIKACIN PER PHARMACY NOTE XX ; Start 12/10/16 at 19:00 Ketoconazole (Nizoral Shampoo) 1 applic Q12 TOP Last administered on 12/25/16 09:11; Admin Dose 1 APPLIC; Start 12/14/16 at 21:00 Ketoconazole 1 applic 1 applic BID TOP Last administered on 12/25/16 09:11; Admin Dose 1 APPLIC; Start 12/14/16 at 21:00 Amikacin Sulfate/ Sodium Chloride (Amikacin/NS) 150 ml @ 150 mls/hr Q72H IVPB Last administered on 12/23/16 23:04; Admin Dose 150 MLS/HR; Start 12/21/16 at 00: 00 Fluconazole 100 mg 100 mg DAILY PO Last administered on 12/25/16 09:05; Admin Dose 100 MG; Start 12/20/16 at 13:30 Vancomycin HCl/ Sodium Chloride (Vancocin/NS) 150 ml @ 75 mls/hr Q24H IVPB Last administered on 12/25/16 05:27; Admin Dose 75 MLS/HR; Start 12/24/16 at 06: 00 Assessment/Plan Chief Complaint/Hosp Course Assessment 1. Acute on chronic hypoxemic respiratory failure on mechanical ventilation via tracheostomy 2. Persistent leukocytosis likely polymicrobial sepsis bilateral pneumonia 3. Mild dehydration 4. Anemia of chronic disease 5. History of CVA 6. Dysphagia with G-tube Plan 1. Continue mechanical ventilation 2. Continue broad-spectrum antibiotics persistent leukocytosis 3. Tube feeding as tolerated 4. Correction of electrolyte abnormalities 5. DVT GI prophylaxis Disposition Continue telemetry care Overall prognosis very poor Problems: JOSEF HERRING MD, [facility] December 25, 2016 11:32
--- NOTE | 2016-12-25 13:54 | CONS ---
Date/Time of Note Date/Time of Note DATE: 12/25/16 TIME: 13:53 Assessment/Plan Assessment/Plan Chief Complaint/Hosp Course SUBJECTIVE: No events overnight. No fevers. The patient is lethargic, lying comfortably in bed. MICROBIOLOGY: Urine culture from December 17 remains negative. INDWELLINGS: Trach, PEG, Cherry, PICC line. ANTIMICROBIALS: 1. Amikacin. 2. Fortaz. 3. Vancomycin. 4. Diflucan PHYSICAL EXAMINATION: GENERAL: This is well-developed, fragile, elderly man who is in no distress. HEENT: Head atraumatic, normocephalic. Sclerae anicteric. Buccal mucosa dry. NECK: Supple. Tracheostomy present. CHEST: Rise symmetrical. Breath sounds clear, diminished to bases. HEART: S1, S2. ABDOMEN: Soft, bowel sounds present. EXTREMITIES: No cyanosis. ASSESSMENT: 1. Sepsis with persistent leukocytosis 2 to #2. 2. Healthcare-associated pneumonia with sputum culture growing Pseudomonas aeruginosa and Providencia stuartii. 3. Sacral decubitus ulcer, improving. 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 5. Hypertension. 6. Dysphagia. PLAN: Remains unchanged, wbc scan consistent w PNA, continue abx, aggressive pulmonary toilet, f/u pulmonary rec-s [facility] staff Problems: Consultation Date/Type/Reason Admit Date/Time Nov 30, 2016 at 04:54 Initial Consult Date 12/01/16 Type of Consultation: ID Referring Provider: CHARLETTE RUTHERFORD Exam/Review of Systems Vital Signs Vitals Vital Signs Date Time Temp Pulse Resp B/P Pulse Ox O2 Delivery O2 Flow Rate FiO2 12/25/16 13:00 79 12/25/16 12:00 97.5 16 133/63 93 12/25/16 10:59 45 Intake and Output 12/24/16 12/24/16 12/25/16 15:00 23:00 07:00 Intake Total 850 ml 600 ml Output Total 2100 ml 1100 ml Balance -1250 ml -500 ml Results Result Diagram: 12/25/16 0535 12/25/16 0535 Results 24 hrs Laboratory Tests Test 12/25/16 05:35 White Blood Count 16.4 H Red Blood Count 2.93 L Hemoglobin 8.2 L Hematocrit 28.0 L Mean Corpuscular Volume 95.6 Mean Corpuscular Hemoglobin 28.0 L Mean Corpuscular Hemoglobin Concent 29.3 L Red Cell Distribution Width 17.3 H Platelet Count 176 Mean Platelet Volume 11.2 H Neutrophils % 84.7 H Lymphocytes % 6.0 L Monocytes % 5.0 Eosinophils % 3.2 Basophils % 0.2 Nucleated Red Blood Cells % 0.0 Neutrophils # 13.9 H Lymphocytes # 1.0 Monocytes # 0.8 Eosinophils # 0.5 Basophils # 0.0 Nucleated Red Blood Cells # 0.0 Sodium Level 140 Potassium Level 3.4 L Chloride Level 101 Carbon Dioxide Level 37 H Anion Gap 5 L Blood Urea Nitrogen 40 H Creatinine 0.54 L Glucose Level 133 Calcium Level 10.4 H Phosphorus Level 3.2 Magnesium Level 2.3 Medications Medications Current Medications Acetaminophen (Tylenol Tab) 650 mg Q6H PRN PEG PAIN LEVEL 1-3 OR FEVER Last administered on 12/20/16 08:41; Admin Dose 650 MG; Start 11/30/16 at 05:00 Morphine Sulfate (morphine) 2 mg Q4H PRN IV PAIN LEVEL 7-10 Last administered on 12/18/16 09:14; Admin Dose 2 MG; Start 11/30/16 at 05:00 Miscellaneous Information 1 ea NOTE XX ; Start 11/30/16 at 05:00 Glucose (Glutose) 15 gm Q15M PRN PO DECREASED GLUCOSE; Start 11/30/16 at 05:00 Glucose (Glutose) 22.5 gm Q15M PRN PO DECREASED GLUCOSE; Start 11/30/16 at 05: 00 Dextrose (D50w Syringe) 25 ml Q15M PRN IV DECREASED GLUCOSE; Start 11/30/16 at 05:00 Dextrose (D50w Syringe) 50 ml Q15M PRN IV DECREASED GLUCOSE; Start 11/30/16 at 05:00 Glucagon (Glucagen) 1 mg Q15M PRN IM DECREASED GLUCOSE; Start 11/30/16 at 05:00 Glucose (Glutose) 15 gm Q15M PRN BUCCAL DECREASED GLUCOSE; Start 11/30/16 at 05 :00 Metoprolol Tartrate (Lopressor) 2.5 mg Q2H PRN IV heart rate over 110 Last administered on 12/17/16 06:57; Admin Dose 2.5 MG; Start 12/01/16 at 12:00 Collagenase (Santyl) 1 applic DAILY TOP Last administered on 12/25/16 09:12; Admin Dose 1 APPLIC; Start 12/02/16 at 12:00 Collagenase (Santyl) 1 applic DAILY PRN TOP PER WOUND CARE ORDERS; Start at 11:30 Metoprolol Tartrate (Lopressor) 50 mg BID GTB Last administered on 12/25/16 09 :05; Admin Dose 50 MG; Start 12/04/16 at 21:00 Famotidine (Pepcid) 20 mg DAILY GTB Last administered on 12/25/16 09:05; Admin Dose 20 MG; Start 12/05/16 at 09:00 Losartan Potassium (Cozaar) 25 mg BID PO Last administered on 12/25/16 09:06; Admin Dose 25 MG; Start 12/05/16 at 21:00 Hydralazine HCl 10 mg 10 mg Q6H PRN IV ELEVATED BLOOD PRESSURE Last administered on 12/13/16 18:26; Admin Dose 10 MG; Start 12/06/16 at 16:00 Ceftazidime/ Dextrose (Fortaz 2gm/50 ml (Pmx)) 50 ml @ 100 mls/hr Q8 IVPB Last administered on 12/25/16 05:27; Admin Dose 100 MLS/HR; Start 12/09/16 at 14:00 Amikacin Sulfate (Amikacin Iv Per Pharmacy) AMIKACIN PER PHARMACY NOTE XX ; Start 12/10/16 at 19:00 Ketoconazole (Nizoral Shampoo) 1 applic Q12 TOP Last administered on 12/25/16 09:11; Admin Dose 1 APPLIC; Start 12/14/16 at 21:00 Ketoconazole 1 applic 1 applic BID TOP Last administered on 12/25/16 09:11; Admin Dose 1 APPLIC; Start 12/14/16 at 21:00 Amikacin Sulfate/ Sodium Chloride (Amikacin/NS) 150 ml @ 150 mls/hr Q72H IVPB Last administered on 12/23/16 23:04; Admin Dose 150 MLS/HR; Start 12/21/16 at 00: 00 Fluconazole 100 mg 100 mg DAILY PO Last administered on 12/25/16 09:05; Admin Dose 100 MG; Start 12/20/16 at 13:30 Vancomycin HCl/ Sodium Chloride (Vancocin/NS) 150 ml @ 75 mls/hr Q24H IVPB Last administered on 12/25/16t 05:27; Admin Dose 75 MLS/HR; Start 12/24/16 at 06: 00 ELI VALDEZ NP December 25, 2016 13:54
[2016-12-26] VITALS (25 sets, daily range): BP systolic 102–121; BP diastolic 57–59; PULSE 86–133; RESP 14–20
[2016-12-26] MEDS: CEFTAZIDIME 2GM/50 ML (PMX) 50 ML IVPB SCH ×3 (05:03→21:51)
[2016-12-26] MEDS: VANCOMYCIN 750 MG in SOD CHLORIDE 0.9% 150 ML IVPB SCH (05:04)
[2016-12-26 07:03] LABS: ADD SCAN DIFF NO
[2016-12-26 07:13] LABS: ABNORMAL IP MESSAGE 1; BASOPHILS % 0.2 % (0.0-2.0); EOSINOPHILS # 0.2 10^3/ul (0.0-0.5); EOSINOPHILS % 0.7 % (0.0-7.0); HEMATOCRIT 28.2 % (42.0-52.0); HEMOGLOBIN 8.1 g/dl (14.0-18.0); LYMPHOCYTES % 4.1 % (15.0-51.0); MEAN CORPUSCULAR HEMOGLOBIN 27.6 pg (29.0-33.0); MEAN CORPUSCULAR HGB CONC 28.7 g/dl (32.0-37.0); MEAN CORPUSCULAR VOLUME 95.9 fl (82.0-101.0); MEAN PLATELET VOLUME 11.7 fl (7.4-10.4); MONOCYTE # 1.2 10^3/ul (0.3-0.9); MONOCYTES % 4.7 % (0.0-11.0); NEUTROPHIL # 22.1 10^3/ul (1.6-7.5); NEUTROPHILS % 89.7 % (39.0-77.0); PLATELET COUNT 167 10^3/UL (140-415); RED BLOOD COUNT 2.94 10^6/ul (4.70-6.10); RED CELL DISTRIBUTION WIDTH 17.6 % (11.5-14.5); WHITE BLOOD COUNT 24.6 10^3/ul (4.8-10.8)
[2016-12-26 07:26] LABS: MAGNESIUM 2.3 mg/dl (1.7-2.5); PHOSPHORUS 2.3 mg/dl (2.5-4.9)
[2016-12-26 07:30] LABS: CALCIUM 10.6 mg/dl (8.4-10.2); CREATININE 0.56 mg/dl (0.61-1.24); POTASSIUM 3.9 mmol/L (3.5-5.1)
[2016-12-26] MEDS: IPRATROPIUM (HFA) 12.9 GM INHALER INH SCH ×4 (07:51→23:32)
[2016-12-26] MEDS: LEVALBUTEROL (HFA) 15 GM INHALER INH SCH ×4 (07:52→23:32)
[2016-12-26] MEDS: METOPROLOL 25 MG TAB GTB SCH ×2 (09:06→22:02)
[2016-12-26] MEDS: FAMOTIDINE 20 MG TAB GTB SCH (09:06)
[2016-12-26] MEDS: FLUCONAZOLE 100 MG TAB PO SCH (09:06)
[2016-12-26] MEDS: KETOCONAZOLE 2% 15 GM CR TOP SCH ×2 (09:07→22:13)
[2016-12-26] MEDS: LOSARTAN 25 MG TAB PO SCH ×2 (09:07→22:00)
[2016-12-26] MEDS: KETOCONAZOLE 2% SHAMPOO 120 ML BTL TOP SCH ×2 (09:07→22:13)
[2016-12-26] MEDS: COLLAGENASE 30 GM TUBE TOP SCH (09:08)
--- NOTE | 2016-12-26 11:47 | PN ---
Date/Time of Note Date/Time of Note DATE: 12/26/16 TIME: 11:30 Assessment/Plan VTE Prophylaxis VTE Prophylaxis Intervention: SCD's Lines/Catheters IV Catheter Type (from Nrsg): PICC Line Central line still needed: Yes (for IV access ) Urinary Cath still in place: Yes Reason Cath still needed: other (indicate) (monitor UOP ) Assessment/Plan Assessment/Plan 81 yo man with: 1. Sepsis, Bilateral Pneumonia, HCAP vs VAP, CT chest and also confirmd on WBC scan with severe bilateral PNA. Sputum cx polymicrobial with MDRO pseudomonas and Providencia. Patient requiring at least Q3 to 4hrs suctioning for now with copious amount of secretions but a little less today. Patient on quadruple abx with Diflucan po, Amikacin, Vancomycin and Fortaz No other source identified on WBC scan besides PNA bilateral R>L Appreciate ID recs, WBC remains back up to 26k, discussed with ID and will re eval PNA with CT chest and possibly may need bronchoscopy 2. Chronic vent-dependent respiratory failure, stable on Vent, oxygenating well on FiO2 45% currently. With also extensive b/l PNA, large amount of secretions Continue Vancomycin, Ceftazidime, Diflucan and Amikacin. Appreciate Pulmonary and ID recommendations 3. Hypokalemia/Hypomagnesemia: BMP Ok today, will replete K today. 4. Severe anemia on admission, possible GI bleeding, but if so resolved now. Continue PPI. S/p 1 unit pRBC Friday. hb stable so far No evidence for active bleeding for now. Back on Iron supplement. 5. Elevated troponins in setting of a fib with RVR and sepsis, CAD In SR currently and HR controlled with Bblocker, up to 50 mg po bid. Cardiology prn. No anticoag due to Anemia 6. MRSA nares: Bactroban, on Vancomycin 7. Sacral Decub, seems to be healing well per RN and wound care but cx polymicrobial with MDRO. Abx adjusted by ID and on wound care protocol. 8. Hypertension: Continue Metoprolol at 50 mg po bid and Losartan added as BP tolerating. Prophylaxis: Continue SCDs and Famotidine. Disposition: On contact isolation and Telemetry. WBC scan confirming PNA as only current source of active infection, per ID continue current abx and aggressive pulmonary toilet. Repeat CT chest pending given increase of WBC. Possible need for bronchoscopy Plan for d/c back to Subacute but may need LTAC this week if WBC trending down and stable. Prognosis remains poor to fair at best. Patient is DNR Subjective 24 Hr Interval Summary Free Text/Dictation No further improvement Still with frequent suctioning WBC back up to 26k, discussed with ID and Pulmonary, repeating CT chest and depending on findings may need to bronch Exam/Review of Systems Vital Signs Vitals Vital Signs Date Time Temp Pulse Resp B/P Pulse Ox O2 Delivery O2 Flow Rate FiO2 12/26/16 11:00 88 16 96 45 12/26/16 07:42 98.1 121/57 Intake and Output 12/25/16 12/25/16 12/26/16 15:00 23:00 07:00 Intake Total 550 ml 460 ml 700 ml Output Total 600 ml 750 ml Balance 550 ml -140 ml -50 ml Exam Constitutional: alert, frail, other (exremely weak ) Respiratory: diminished breath sounds (bilaterally ), other (on Vent with Fio2 45%) Cardiovascular: nl pulses, regular rate and rhythm Gastrointestinal: non-tender, soft Musculoskeletal: nl extremities to inspection Extremities: normal pulses, other (no edema, clubbing or cyanosis ) Neurological: 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 CART 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 II-XII intact, lethargic, other (generalised weakness ) Results Result Diagram: 12/26/16 0610 12/26/16 0610 Results 24 hrs Laboratory Tests Test 12/26/16 06:10 White Blood Count 24.6 #H Red Blood Count 2.94 L Hemoglobin 8.1 L Hematocrit 28.2 L Mean Corpuscular Volume 95.9 Mean Corpuscular Hemoglobin 27.6 L Mean Corpuscular Hemoglobin Concent 28.7 L Red Cell Distribution Width 17.6 H Platelet Count 167 Mean Platelet Volume 11.7 H Neutrophils % 89.7 H Lymphocytes % 4.1 L Monocytes % 4.7 Eosinophils % 0.7 Basophils % 0.2 Nucleated Red Blood Cells % 0.0 Neutrophils # 22.1 H Lymphocytes # 1.0 Monocytes # 1.2 H Eosinophils # 0.2 Basophils # 0.0 Nucleated Red Blood Cells # 0.0 Sodium Level 140 Potassium Level 3.9 Chloride Level 102 Carbon Dioxide Level 34 H Anion Gap 8 Blood Urea Nitrogen 42 H Creatinine 0.56 L Glucose Level 106 Calcium Level 10.6 H Phosphorus Level 2.3 L Magnesium Level 2.3 Medications Medications Current Medications Acetaminophen (Tylenol Tab) 650 mg Q6H PRN PEG PAIN LEVEL 1-3 OR FEVER Last administered on 12/20/16 08:41; Admin Dose 650 MG; Start 11/30/16 at 05:00 Morphine Sulfate (morphine) 2 mg Q4H PRN IV PAIN LEVEL 7-10 Last administered on 12/18/16 09:14; Admin Dose 2 MG; Start 11/30/16 at 05:00 Miscellaneous Information 1 ea NOTE XX ; Start 11/30/16 at 05:00 Glucose (Glutose) 15 gm Q15M PRN PO DECREASED GLUCOSE; Start 11/30/16 at 05:00 Glucose (Glutose) 22.5 gm Q15M PRN PO DECREASED GLUCOSE; Start 11/30/16 at 05: 00 Dextrose (D50w Syringe) 25 ml Q15M PRN IV DECREASED GLUCOSE; Start 11/30/16 at 05:00 Dextrose (D50w Syringe) 50 ml Q15M PRN IV DECREASED GLUCOSE; Start 11/30/16 at 05:00 Glucagon (Glucagen) 1 mg Q15M PRN IM DECREASED GLUCOSE; Start 11/30/16 at 05:00 Glucose (Glutose) 15 gm Q15M PRN BUCCAL DECREASED GLUCOSE; Start 11/30/16 at 05 :00 Metoprolol Tartrate (Lopressor) 2.5 mg Q2H PRN IV heart rate over 110 Last administered on 12/17/16 06:57; Admin Dose 2.5 MG; Start 12/01/16 at 12:00 Collagenase (Santyl) 1 applic DAILY TOP Last administered on 12/26/16 09:08; Admin Dose 1 APPLIC; Start 12/02/16 at 12:00 Collagenase (Santyl) 1 applic DAILY PRN TOP PER WOUND CARE ORDERS; Start at 11:30 Metoprolol Tartrate (Lopressor) 50 mg BID GTB Last administered on 12/26/16 09 :06; Admin Dose 50 MG; Start 12/04/16 at 21:00 Famotidine (Pepcid) 20 mg DAILY GTB Last administered on 12/26/16 09:06; Admin Dose 20 MG; Start 12/05/16 at 09:00 Losartan Potassium (Cozaar) 25 mg BID PO Last administered on 12/26/16 09:07; Admin Dose 25 MG; Start 12/05/16 at 21:00 Hydralazine HCl 10 mg 10 mg Q6H PRN IV ELEVATED BLOOD PRESSURE Last administered on 12/13/16 18:26; Admin Dose 10 MG; Start 12/06/16 at 16:00 Ceftazidime/ Dextrose (Fortaz 2gm/50 ml (Pmx)) 50 ml @ 100 mls/hr Q8 IVPB Last administered on 12/26/16 05:03; Admin Dose 100 MLS/HR; Start 12/09/16 at 14:00 Amikacin Sulfate (Amikacin Iv Per Pharmacy) AMIKACIN PER PHARMACY NOTE XX ; Start 12/10/16 at 19:00 Ketoconazole (Nizoral Shampoo) 1 applic Q12 TOP Last administered on 12/26/16 09:07; Admin Dose 1 APPLIC; Start 12/14/16 at 21:00 Ketoconazole 1 applic 1 applic BID TOP Last administered on 12/26/16 09:07; Admin Dose 1 APPLIC; Start 12/14/16 at 21:00 Amikacin Sulfate/ Sodium Chloride (Amikacin/NS) 150 ml @ 150 mls/hr Q72H IVPB Last administered on 12/23/16 23:04; Admin Dose 150 MLS/HR; Start 12/21/16 at 00: 00 Fluconazole 100 mg 100 mg DAILY PO Last administered on 12/26/16 09:06; Admin Dose 100 MG; Start 12/20/16 at 13:30 Vancomycin HCl/ Sodium Chloride (Vancocin/NS) 150 ml @ 75 mls/hr Q24H IVPB Last administered on 12/26/16 05:04; Admin Dose 75 MLS/HR; Start 12/24/16 at 06: 00 CHARLETTE RUTHERFORD December 26, 2016 11:41
--- NOTE | 2016-12-26 12:46 | CONS ---
Date/Time of Note Date/Time of Note DATE: 12/26/16 TIME: 12:45 Consult Date/Type/Reason Admit Date/Time Nov 30, 2016 at 04:54 Initial Consult Date 12/01/16 Type of Consultation: Pulmonary Ordering Provider: CHARLETTE RUTHERFROD Subjective No significant changes Objective Vital Signs Date Time Temp Pulse Resp B/P Pulse Ox O2 Delivery O2 Flow Rate FiO2 12/26/16 12:00 88 12/26/16 11:44 98.0 20 108/57 96 12/26/16 11:00 45 Intake and Output 12/25/16 12/25/16 12/26/16 15:00 23:00 07:00 Intake Total 550 ml 460 ml 700 ml Output Total 600 ml 750 ml Balance 550 ml -140 ml -50 ml Exam PHYSICAL EXAMINATION GENERAL: Elderly gentleman, on mechanical ventilation appears comfortable VITAL SIGNS: see below. HEENT: Pupils equal, round, and reactive to light. Tracheostomy site clean and intact. CARDIAC: S1, S2, 1/6 systolic ejection murmur CHEST: Diminished air entry bilaterally. ABDOMEN: Mildly distended. Bowel sounds present no guarding or rebound EXTREMITIES: No cyanosis, clubbing edema +1 NEUROLOGIC: unable to assess Results/Medications Result Diagram: 12/26/16 0610 12/26/16 0610 Results 24 hrs Laboratory Tests Test 12/26/16 06:10 White Blood Count 24.6 #H Red Blood Count 2.94 L Hemoglobin 8.1 L Hematocrit 28.2 L Mean Corpuscular Volume 95.9 Mean Corpuscular Hemoglobin 27.6 L Mean Corpuscular Hemoglobin Concent 28.7 L Red Cell Distribution Width 17.6 H Platelet Count 167 Mean Platelet Volume 11.7 H Neutrophils % 89.7 H Lymphocytes % 4.1 L Monocytes % 4.7 Eosinophils % 0.7 Basophils % 0.2 Nucleated Red Blood Cells % 0.0 Neutrophils # 22.1 H Lymphocytes # 1.0 Monocytes # 1.2 H Eosinophils # 0.2 Basophils # 0.0 Nucleated Red Blood Cells # 0.0 Sodium Level 140 Potassium Level 3.9 Chloride Level 102 Carbon Dioxide Level 34 H Anion Gap 8 Blood Urea Nitrogen 42 H Creatinine 0.56 L Glucose Level 106 Calcium Level 10.6 H Phosphorus Level 2.3 L Magnesium Level 2.3 Medications Current Medications Acetaminophen (Tylenol Tab) 650 mg Q6H PRN PEG PAIN LEVEL 1-3 OR FEVER Last administered on 12/20/16 08:41; Admin Dose 650 MG; Start 11/30/16 at 05:00 Morphine Sulfate (morphine) 2 mg Q4H PRN IV PAIN LEVEL 7-10 Last administered on 12/18/16 09:14; Admin Dose 2 MG; Start 11/30/16 at 05:00 Miscellaneous Information 1 ea NOTE XX ; Start 11/30/16 at 05:00 Glucose (Glutose) 15 gm Q15M PRN PO DECREASED GLUCOSE; Start 11/30/16 at 05:00 Glucose (Glutose) 22.5 gm Q15M PRN PO DECREASED GLUCOSE; Start 11/30/16 at 05: 00 Dextrose (D50w Syringe) 25 ml Q15M PRN IV DECREASED GLUCOSE; Start 11/30/16 at 05:00 Dextrose (D50w Syringe) 50 ml Q15M PRN IV DECREASED GLUCOSE; Start 11/30/16 at 05:00 Glucagon (Glucagen) 1 mg Q15M PRN IM DECREASED GLUCOSE; Start 11/30/16 at 05:00 Glucose (Glutose) 15 gm Q15M PRN BUCCAL DECREASED GLUCOSE; Start 11/30/16 at 05 :00 Metoprolol Tartrate (Lopressor) 2.5 mg Q2H PRN IV heart rate over 110 Last administered on 12/17/16 06:57; Admin Dose 2.5 MG; Start 12/01/16 at 12:00 Collagenase (Santyl) 1 applic DAILY TOP Last administered on 12/26/16 09:08; Admin Dose 1 APPLIC; Start 12/02/16 at 12:00 Collagenase (Santyl) 1 applic DAILY PRN TOP PER WOUND CARE ORDERS; Start at 11:30 Metoprolol Tartrate (Lopressor) 50 mg BID GTB Last administered on 12/26/16 09 :06; Admin Dose 50 MG; Start 12/04/16 at 21:00 Famotidine (Pepcid) 20 mg DAILY GTB Last administered on 12/26/16 09:06; Admin Dose 20 MG; Start 12/05/16 at 09:00 Losartan Potassium (Cozaar) 25 mg BID PO Last administered on 12/26/16 09:07; Admin Dose 25 MG; Start 12/05/16 at 21:00 Hydralazine HCl 10 mg 10 mg Q6H PRN IV ELEVATED BLOOD PRESSURE Last administered on 12/13/16 18:26; Admin Dose 10 MG; Start 12/06/16 at 16:00 Ceftazidime/ Dextrose (Fortaz 2gm/50 ml (Pmx)) 50 ml @ 100 mls/hr Q8 IVPB Last administered on 12/26/16 05:03; Admin Dose 100 MLS/HR; Start 12/09/16 at 14:00 Amikacin Sulfate (Amikacin Iv Per Pharmacy) AMIKACIN PER PHARMACY NOTE XX ; Start 12/10/16 at 19:00 Ketoconazole (Nizoral Shampoo) 1 applic Q12 TOP Last administered on 12/26/16 09:07; Admin Dose 1 APPLIC; Start 12/14/16 at 21:00 Ketoconazole 1 applic 1 applic BID TOP Last administered on 12/26/16 09:07; Admin Dose 1 APPLIC; Start 12/14/16 at 21:00 Amikacin Sulfate/ Sodium Chloride (Amikacin/NS) 150 ml @ 150 mls/hr Q72H IVPB Last administered on 12/23/16 23:04; Admin Dose 150 MLS/HR; Start 12/21/16 at 00: 00 Fluconazole 100 mg 100 mg DAILY PO Last administered on 12/26/16 09:06; Admin Dose 100 MG; Start 12/20/16 at 13:30 Vancomycin HCl/ Sodium Chloride (Vancocin/NS) 150 ml @ 75 mls/hr Q24H IVPB Last administered on 12/26/16 05:04; Admin Dose 75 MLS/HR; Start 12/24/16 at 06: 00 Assessment/Plan Chief Complaint/Hosp Course Assessment 1. Acute on chronic hypoxemic respiratory failure on mechanical ventilation via tracheostomy 2. Persistent leukocytosis likely polymicrobial sepsis bilateral pneumonia 3. Mild dehydration 4. Anemia of chronic disease 5. History of CVA 6. Dysphagia with G-tube Plan 1. Continue mechanical ventilation 2. Continue broad-spectrum antibiotics persistent leukocytosis agree with CT chest to rule out abscess 3. Tube feeding as tolerated 4. Correction of electrolyte abnormalities 5. DVT GI prophylaxis Disposition Continue telemetry care Discussed with primary care Problems: JOSEF HERRING MD, [facility] December 26, 2016 12:46
--- NOTE | 2016-12-26 13:34 | CONS ---
Date/Time of Note Date/Time of Note DATE: 12/26/16 TIME: 13:25 Assessment/Plan Assessment/Plan Chief Complaint/Hosp Course SUBJECTIVE: No events overnight. No fevers. The patient is lethargic, lying comfortably in bed. MICROBIOLOGY: Urine culture from December 17 remains negative. INDWELLINGS: Trach, PEG, Cherry, PICC line. ANTIMICROBIALS: 1. Amikacin. 2. Fortaz. 3. Vancomycin. 4. Diflucan PHYSICAL EXAMINATION: GENERAL: This is well-developed, fragile, elderly man who is in no distress. HEENT: Head atraumatic, normocephalic. Sclerae anicteric. Buccal mucosa dry. NECK: Supple. Tracheostomy present. CHEST: Rise symmetrical. Breath sounds clear, diminished to bases. HEART: S1, S2. ABDOMEN: Soft, bowel sounds present. EXTREMITIES: No cyanosis. ASSESSMENT: 1. Sepsis with persistent leukocytosis 2 to #2. 2. Healthcare-associated pneumonia with sputum culture growing Pseudomonas aeruginosa and Providencia stuartii. 3. Sacral decubitus ulcer, improving. 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 5. Hypertension. 6. Dysphagia. PLAN: Clinically unchanged, will order CT chest given persistent leukocytosis DW dr Rutherford Problems: Consultation Date/Type/Reason Admit Date/Time Nov 30, 2016 at 04:54 Initial Consult Date 12/01/16 Type of Consultation: ID Referring Provider: CHARLETTE RUTHERFORD Exam/Review of Systems Vital Signs Vitals Vital Signs Date Time Temp Pulse Resp B/P Pulse Ox O2 Delivery O2 Flow Rate FiO2 12/26/16 12:00 88 12/26/16 11:44 98.0 20 108/57 96 12/26/16 11:00 45 Intake and Output 12/25/16 12/25/16 12/26/16 14:59 22:59 06:59 Intake Total 550 ml 460 ml 700 ml Output Total 600 ml 750 ml Balance 550 ml -140 ml -50 ml Results Result Diagram: 12/26/16 0610 12/26/16 0610 Results 24 hrs Laboratory Tests Test 12/26/16 06:10 White Blood Count 24.6 #H Red Blood Count 2.94 L Hemoglobin 8.1 L Hematocrit 28.2 L Mean Corpuscular Volume 95.9 Mean Corpuscular Hemoglobin 27.6 L Mean Corpuscular Hemoglobin Concent 28.7 L Red Cell Distribution Width 17.6 H Platelet Count 167 Mean Platelet Volume 11.7 H Neutrophils % 89.7 H Lymphocytes % 4.1 L Monocytes % 4.7 Eosinophils % 0.7 Basophils % 0.2 Nucleated Red Blood Cells % 0.0 Neutrophils # 22.1 H Lymphocytes # 1.0 Monocytes # 1.2 H Eosinophils # 0.2 Basophils # 0.0 Nucleated Red Blood Cells # 0.0 Sodium Level 140 Potassium Level 3.9 Chloride Level 102 Carbon Dioxide Level 34 H Anion Gap 8 Blood Urea Nitrogen 42 H Creatinine 0.56 L Glucose Level 106 Calcium Level 10.6 H Phosphorus Level 2.3 L Magnesium Level 2.3 Medications Medications Current Medications Acetaminophen (Tylenol Tab) 650 mg Q6H PRN PEG PAIN LEVEL 1-3 OR FEVER Last administered on 12/20/16 08:41; Admin Dose 650 MG; Start 11/30/16 at 05:00 Morphine Sulfate (morphine) 2 mg Q4H PRN IV PAIN LEVEL 7-10 Last administered on 12/18/16 09:14; Admin Dose 2 MG; Start 11/30/16 at 05:00 Miscellaneous Information 1 ea NOTE XX ; Start 11/30/16 at 05:00 Glucose (Glutose) 15 gm Q15M PRN PO DECREASED GLUCOSE; Start 11/30/16 at 05:00 Glucose (Glutose) 22.5 gm Q15M PRN PO DECREASED GLUCOSE; Start 11/30/16 at 05: 00 Dextrose (D50w Syringe) 25 ml Q15M PRN IV DECREASED GLUCOSE; Start 11/30/16 at 05:00 Dextrose (D50w Syringe) 50 ml Q15M PRN IV DECREASED GLUCOSE; Start 11/30/16 at 05:00 Glucagon (Glucagen) 1 mg Q15M PRN IM DECREASED GLUCOSE; Start 11/30/16 at 05:00 Glucose (Glutose) 15 gm Q15M PRN BUCCAL DECREASED GLUCOSE; Start 11/30/16 at 05 :00 Metoprolol Tartrate (Lopressor) 2.5 mg Q2H PRN IV heart rate over 110 Last administered on 12/17/16 06:57; Admin Dose 2.5 MG; Start 12/01/16 at 12:00 Collagenase (Santyl) 1 applic DAILY TOP Last administered on 12/26/16 09:08; Admin Dose 1 APPLIC; Start 12/02/16 at 12:00 Collagenase (Santyl) 1 applic DAILY PRN TOP PER WOUND CARE ORDERS; Start at 11:30 Metoprolol Tartrate (Lopressor) 50 mg BID GTB Last administered on 12/26/16 09 :06; Admin Dose 50 MG; Start 12/04/16 at 21:00 Famotidine (Pepcid) 20 mg DAILY GTB Last administered on 12/26/16 09:06; Admin Dose 20 MG; Start 12/05/16 at 09:00 Losartan Potassium (Cozaar) 25 mg BID PO Last administered on 12/26/16 09:07; Admin Dose 25 MG; Start 12/05/16 at 21:00 Hydralazine HCl 10 mg 10 mg Q6H PRN IV ELEVATED BLOOD PRESSURE Last administered on 12/13/16 18:26; Admin Dose 10 MG; Start 12/06/16 at 16:00 Ceftazidime/ Dextrose (Fortaz 2gm/50 ml (Pmx)) 50 ml @ 100 mls/hr Q8 IVPB Last administered on 12/26/16 05:03; Admin Dose 100 MLS/HR; Start 12/09/16 at 14:00 Amikacin Sulfate (Amikacin Iv Per Pharmacy) AMIKACIN PER PHARMACY NOTE XX ; Start 12/10/16 at 19:00 Ketoconazole (Nizoral Shampoo) 1 applic Q12 TOP Last administered on 12/26/16 09:07; Admin Dose 1 APPLIC; Start 12/14/16 at 21:00 Ketoconazole 1 applic 1 applic BID TOP Last administered on 12/26/16 09:07; Admin Dose 1 APPLIC; Start 12/14/16 at 21:00 Amikacin Sulfate/ Sodium Chloride (Amikacin/NS) 150 ml @ 150 mls/hr Q72H IVPB Last administered on 12/23/16 23:04; Admin Dose 150 MLS/HR; Start 12/21/16 at 00: 00 Fluconazole 100 mg 100 mg DAILY PO Last administered on 12/26/16 09:06; Admin Dose 100 MG; Start 12/20/16 at 13:30 Vancomycin HCl/ Sodium Chloride (Vancocin/NS) 150 ml @ 75 mls/hr Q24H IVPB Last administered on 12/26/16t 05:04; Admin Dose 75 MLS/HR; Start 12/24/16 at 06: 00 ELI VALDEZ NP December 26, 2016 13:34
--- NOTE | 2016-12-26 22:06 | RADRPT ---
PROCEDURE: CT Chest without contrast. CLINICAL INDICATION: Pneumonia. Elevated white blood cell count. TECHNIQUE: Helical axial sections were obtained through the chest without intravenous contrast enh ancement. Coronal and sagittal reformatted images were obtained from the axial source images. Total exam DLP is 352.88 mGy-cm. CTDIvol is 9.48 mGy. One or more of the following dose reduction tech niques were used: Automated exposure control, adjustment of the mA and/or kV according to patient si ze, use of iterative reconstruction technique. COMPARISON: CT scan of the chest dated 12/12/2016. FINDINGS: The tracheostomy tube and left arm PICC line remain in satisfactory position. There is extensive pa tchy consolidation bilaterally with right worse than left, unchanged. Irregular nodular densities a re present bilaterally, also unchanged. There is no cavitary lesion to suggest abscess. There is middle mediastinal lymphadenopathy with the right inferior paratracheal lymph node measurin g 2.8 x 1.8 cm and several other smaller lymph nodes. There is no axillary, supraclavicular, or internal mammary lymphadenopathy. The thoracic aorta is not dilated. There is calcification in the aorta consistent with atherosclero sis. The heart is mildly enlarged. There is coronary artery calcification. There is a small left pleural effusion. There is no right pleural effusion. There is mild free flu id adjacent to the liver. The visualized portions of the liver and spleen are unremarkable. There are degenerative changes of the spine. IMPRESSION: 1. No cavitary lesion to suggest abscess. Bilateral multifocal pneumonia with right worse than lef t, unchanged. 2. Irregular nodular densities bilaterally which may be due to infection or neoplasm. 3. No other new abnormality. RPTAT: QQ .Dayday Castañeda MD, MD Date Time Electronically viewed and signed by .Dayday Castañeda MD, on 12/26/2016 22:06 .R/
[2016-12-27] VITALS (24 sets, daily range): BP systolic 106–128; BP diastolic 53–68; PULSE 73–108; RESP 14–27
[2016-12-27] MEDS: AMIKACIN IVPB SCH (02:12)
[2016-12-27] MEDS: SOD CHLORIDE 0.9% IVPB SCH (02:12)
[2016-12-27] MEDS: CEFTAZIDIME 2GM/50 ML (PMX) 50 ML IVPB SCH ×3 (05:30→21:17)
[2016-12-27 05:48] LABS: ADD SCAN DIFF NO
[2016-12-27 05:59] LABS: BASOPHILS % 0.2 % (0.0-2.0); EOSINOPHILS # 0.5 10^3/ul (0.0-0.5); EOSINOPHILS % 2.2 % (0.0-7.0); HEMATOCRIT 27.3 % (42.0-52.0); MEAN CORPUSCULAR HEMOGLOBIN 27.8 pg (29.0-33.0); MEAN CORPUSCULAR HGB CONC 29.3 g/dl (32.0-37.0); MEAN CORPUSCULAR VOLUME 94.8 fl (82.0-101.0); MEAN PLATELET VOLUME 11.7 fl (7.4-10.4); MONOCYTE # 0.8 10^3/ul (0.3-0.9); NEUTROPHIL # 17.6 10^3/ul (1.6-7.5); NEUTROPHILS % 87.9 % (39.0-77.0); PLATELET COUNT 156 10^3/UL (140-415); RED BLOOD COUNT 2.88 10^6/ul (4.70-6.10); RED CELL DISTRIBUTION WIDTH 17.6 % (11.5-14.5); WHITE BLOOD COUNT 20.1 10^3/ul (4.8-10.8)
[2016-12-27] MEDS: VANCOMYCIN 750 MG in SOD CHLORIDE 0.9% 150 ML IVPB SCH (06:00)
[2016-12-27 06:57] LABS: POTASSIUM 3.6 mmol/L (3.5-5.1)
[2016-12-27 06:59] LABS: CREATININE 0.69 mg/dl (0.61-1.24)
[2016-12-27 07:00] LABS: CALCIUM 10.9 mg/dl (8.4-10.2)
[2016-12-27] MEDS: IPRATROPIUM (HFA) 12.9 GM INHALER INH SCH ×2 (07:18→13:14)
[2016-12-27] MEDS: LEVALBUTEROL (HFA) 15 GM INHALER INH SCH ×2 (07:19→13:14)
[2016-12-27 08:08] LABS: MAGNESIUM 2.5 mg/dl (1.7-2.5); PHOSPHORUS 2.9 mg/dl (2.5-4.9)
[2016-12-27] MEDS: FAMOTIDINE 20 MG TAB GTB SCH (09:47)
[2016-12-27] MEDS: ACETAMINOPHEN 325 MG TAB PEG PRN (09:47)
[2016-12-27] MEDS: FLUCONAZOLE 100 MG TAB PO SCH (09:47)
[2016-12-27] MEDS: METOPROLOL 25 MG TAB GTB SCH ×2 (09:48→21:18)
[2016-12-27] MEDS: LOSARTAN 25 MG TAB PO SCH ×2 (09:48→21:18)
[2016-12-27] MEDS: KETOCONAZOLE 2% SHAMPOO 120 ML BTL TOP SCH ×2 (09:49→21:19)
[2016-12-27] MEDS: COLLAGENASE 30 GM TUBE TOP SCH (09:49)
[2016-12-27] MEDS: KETOCONAZOLE 2% 15 GM CR TOP SCH ×2 (09:49→21:19)
--- NOTE | 2016-12-27 13:16 | PN ---
Date/Time of Note Date/Time of Note DATE: 12/27/16 TIME: 13:00 Assessment/Plan VTE Prophylaxis VTE Prophylaxis Intervention: SCD's Lines/Catheters IV Catheter Type (from Nrs): PICC Line Central line still needed: Yes (for IV access ) Urinary Cath still in place: Yes Reason Cath still needed: other (indicate) (monitor UOP ) Assessment/Plan Assessment/Plan 81 yo man with: 1. Sepsis, Bilateral Pneumonia, HCAP vs VAP, CT chest and also confirmd on WBC scan with severe bilateral PNA. Sputum cx polymicrobial with MDRO pseudomonas and Providencia. Patient requiring at least Q3 to 4hrs suctioning for now with copious amount of secretions but a little less. Patient on quadruple abx with Diflucan po, Amikacin, Vancomycin and Fortaz No other source identified on WBC scan besides PNA bilateral R>L Appreciate ID recs, WBC remains back up to 20k, CT with unchanged finding of R>>L multifocal PNA with dense infiltrates Discussed with Pulmonary and plan for Bronch with BAL RML on Friday if no clinical improvement. 2. Chronic vent-dependent respiratory failure, stable on Vent, oxygenating well on FiO2 45% currently. With also extensive b/l PNA, large amount of secretions Continue Vancomycin, Ceftazidime, Diflucan and Amikacin. Appreciate Pulmonary and ID recommendations 3. Hypokalemia/Hypomagnesemia: BMP Ok today, will replete electrolytes prn. 4. Severe anemia on admission, possible GI bleeding, but if so resolved now. Continue PPI. S/p 1 unit pRBC Friday. hb stable so far No evidence for active bleeding for now. Back on Iron supplement. 5. Elevated troponins in setting of a fib with RVR and sepsis, CAD In SR currently and HR controlled with Bblocker, up to 50 mg po bid. Cardiology prn. No anticoag due to Anemia 6. MRSA nares: Bactroban, on Vancomycin 7. Sacral Decub, seems to be healing well per RN and wound care but cx polymicrobial with MDRO. Abx adjusted by ID and on wound care protocol. 8. Hypertension: Continue Metoprolol at 50 mg po bid and Losartan added as BP tolerating. Prophylaxis: Continue SCDs and Famotidine. Disposition: On contact isolation and Telemetry. WBC scan confirming PNA as only current source of active infection, per ID continue current abx and aggressive pulmonary toilet. Possible need for bronchoscopy with RML BAL Friday. Plan for d/c back to Subacute but may need LTAC soon if WBC trending down and stable. Prognosis remains poor to fair at best. Patient is DNR Subjective 24 Hr Interval Summary Free Text/Dictation Patient doing Ok with unchanged clinical status per se, still lethargic and with dense multilobar infiltrates R>>L on repeat CT chest yesterday WBC @ 20 today Per Pulmo in still no further improvement on Friday, may have to do a bronch with RML lavage Exam/Review of Systems Vital Signs Vitals Vital Signs Date Time Temp Pulse Resp B/P Pulse Ox O2 Delivery O2 Flow Rate FiO2 12/27/16 12:30 73 12/27/16 11:35 97.7 18 108/58 96 12/27/16 11:15 45 Intake and Output 12/26/16 12/26/16 12/27/16 15:00 23:00 07:00 Intake Total 970 ml 1220 ml Output Total 1000 ml 550 ml Balance -30 ml 670 ml Exam Constitutional: frail, other (lethargic ) Respiratory: diminished breath sounds (bilaterally ) Cardiovascular: nl pulses, regular rate and rhythm Gastrointestinal: non-tender, soft Musculoskeletal: other (muscle wasting ) Extremities: normal pulses, other (no edema, clubbing or cyanosis ) 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8 Mean Corpuscular Hemoglobin 27.8 L Mean Corpuscular Hemoglobin Concent 29.3 L Red Cell Distribution Width 17.6 H Platelet Count 156 Mean Platelet Volume 11.7 H Neutrophils % 87.9 H Lymphocytes % 5.0 L Monocytes % 4.0 Eosinophils % 2.2 Basophils % 0.2 Nucleated Red Blood Cells % 0.0 Neutrophils # 17.6 H Lymphocytes # 1.0 Monocytes # 0.8 Eosinophils # 0.5 Basophils # 0.0 Nucleated Red Blood Cells # 0.0 Test 12/27/16 08:59 Lab Scanned Report REFERENCE LAB Medications Medications Current Medications Acetaminophen (Tylenol Tab) 650 mg Q6H PRN PEG PAIN LEVEL 1-3 OR FEVER Last administered on 12/27/16 09:47; Admin Dose 650 MG; Start 11/30/16 at 05:00 Morphine Sulfate (morphine) 2 mg Q4H PRN IV PAIN LEVEL 7-10 Last administered on 12/18/16 09:14; Admin Dose 2 MG; Start 11/30/16 at 05:00 Miscellaneous Information 1 ea NOTE XX ; Start 11/30/16 at 05:00 Glucose (Glutose) 15 gm Q15M PRN PO DECREASED GLUCOSE; Start 11/30/16 at 05:00 Glucose (Glutose) 22.5 gm Q15M PRN PO DECREASED GLUCOSE; Start 11/30/16 at 05: 00 Dextrose (D50w Syringe) 25 ml Q15M PRN IV DECREASED GLUCOSE; Start 11/30/16 at 05:00 Dextrose (D50w Syringe) 50 ml Q15M PRN IV DECREASED GLUCOSE; Start 11/30/16 at 05:00 Glucagon (Glucagen) 1 mg Q15M PRN IM DECREASED GLUCOSE; Start 11/30/16 at 05:00 Glucose (Glutose) 15 gm Q15M PRN BUCCAL DECREASED GLUCOSE; Start 11/30/16 at 05 :00 Metoprolol Tartrate (Lopressor) 2.5 mg Q2H PRN IV heart rate over 110 Last administered on 12/17/16 06:57; Admin Dose 2.5 MG; Start 12/01/16 at 12:00 Collagenase (Santyl) 1 applic DAILY TOP Last administered on 12/27/16 09:49; Admin Dose 1 APPLIC; Start 12/02/16 at 12:00 Collagenase (Santyl) 1 applic DAILY PRN TOP PER WOUND CARE ORDERS; Start at 11:30 Metoprolol Tartrate (Lopressor) 50 mg BID GTB Last administered on 12/27/16 09 :48; Admin Dose 50 MG; Start 12/04/16 at 21:00 Famotidine (Pepcid) 20 mg DAILY GTB Last administered on 12/27/16 09:47; Admin Dose 20 MG; Start 12/05/16 at 09:00 Losartan Potassium (Cozaar) 25 mg BID PO Last administered on 12/27/16 09:48; Admin Dose 25 MG; Start 12/05/16 at 21:00 Hydralazine HCl 10 mg 10 mg Q6H PRN IV ELEVATED BLOOD PRESSURE Last administered on 12/13/16 18:26; Admin Dose 10 MG; Start 12/06/16 at 16:00 Ceftazidime/ Dextrose (Fortaz 2gm/50 ml (Pmx)) 50 ml @ 100 mls/hr Q8 IVPB Last administered on 12/27/16 05:30; Admin Dose 100 MLS/HR; Start 12/09/16 at 14:00 Amikacin Sulfate (Amikacin Iv Per Pharmacy) AMIKACIN PER PHARMACY NOTE XX ; Start 12/10/16 at 19:00 Ketoconazole (Nizoral Shampoo) 1 applic Q12 TOP Last administered on 12/27/16 09:49; Admin Dose 1 APPLIC; Start 12/14/16 at 21:00 Ketoconazole 1 applic 1 applic BID TOP Last administered on 12/27/16 09:49; Admin Dose 1 APPLIC; Start 12/14/16 at 21:00 Amikacin Sulfate/ Sodium Chloride (Amikacin/NS) 150 ml @ 150 mls/hr Q72H IVPB Last administered on 12/27/16 02:12; Admin Dose 150 MLS/HR; Start 12/21/16 at 00 :00 Fluconazole (Diflucan) 100 mg DAILY PO Last administered on 12/27/16 09:47; Admin Dose 100 MG; Start 12/20/16 at 13:30 Procedures Procedures PROCEDURE: CT Chest without contrast. CLINICAL INDICATION: Pneumonia. Elevated white blood cell count. TECHNIQUE: Helical axial sections were obtained through the chest without intravenous contrast enhancement. Coronal and sagittal reformatted images were obtained from the axial source images. Total exam DLP is 352.88 mGy-cm. CTDIvol is 9.48 mGy. One or more of the following dose reduction techniques were used: Automated exposure control, adjustment of the mA and/or kV according to patient size, use of iterative reconstruction technique. COMPARISON: CT scan of the chest dated 12/12/2016. FINDINGS: The tracheostomy tube and left arm PICC line remain in satisfactory position. There is extensive patchy consolidation bilaterally with right worse than left, unchanged. Irregular nodular densities are present bilaterally, also unchanged. There is no cavitary lesion to suggest abscess. There is middle mediastinal lymphadenopathy with the right inferior paratracheal lymph node measuring 2.8 x 1.8 cm and several other smaller lymph nodes. There is no axillary, supraclavicular, or internal mammary lymphadenopathy. The thoracic aorta is not dilated. There is calcification in the aorta consistent with atherosclerosis. The heart is mildly enlarged. There is coronary artery calcification. There is a small left pleural effusion. There is no right pleural effusion. There is mild free fluid adjacent to the liver. The visualized portions of the liver and spleen are unremarkable. There are degenerative changes of the spine. IMPRESSION: 1. No cavitary lesion to suggest abscess. Bilateral multifocal pneumonia with right worse than left, unchanged. 2. Irregular nodular densities bilaterally which may be due to infection or neoplasm. 3. No other new abnormality. RPTAT: CHARLETTE SALVADOR December 27, 2016 13:14
[2016-12-27] MEDS ORDERED: POTASSIUM CHLORIDE 20 MEQ POWDER FOR ORAL SOLN GTB ONE (13:30)
--- NOTE | 2016-12-27 14:42 | CONS ---
Date/Time of Note Date/Time of Note DATE: 12/27/16 TIME: 14:41 Assessment/Plan Assessment/Plan Chief Complaint/Hosp Course SUBJECTIVE: No events overnight. No fevers. The patient is lethargic, lying comfortably in bed. INDWELLINGS: Trach, PEG, Cherry, PICC line. ANTIMICROBIALS: 1. Amikacin. 2. Fortaz. 3. Vancomycin. 4. Diflucan PHYSICAL EXAMINATION: GENERAL: This is well-developed, fragile, elderly man who is in no distress. HEENT: Head atraumatic, normocephalic. Sclerae anicteric. Buccal mucosa dry. NECK: Supple. Tracheostomy present. CHEST: Rise symmetrical. Breath sounds clear, diminished to bases. HEART: S1, S2. ABDOMEN: Soft, bowel sounds present. EXTREMITIES: No cyanosis. ASSESSMENT: 1. Sepsis with persistent leukocytosis 2 to #2. 2. Healthcare-associated pneumonia with sputum culture growing Pseudomonas aeruginosa and Providencia stuartii. 3. Sacral decubitus ulcer, improving. 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 5. Hypertension. 6. Dysphagia. PLAN: Clinically unchanged, CT chest noted, continue abx, repeat sputum cx DW staff Problems: Consultation Date/Type/Reason Admit Date/Time Nov 30, 2016 at 04:54 Initial Consult Date 12/01/16 Type of Consultation: ID Referring Provider: CHARLETTE RUTHERFORD Exam/Review of Systems Vital Signs Vitals Vital Signs Date Time Temp Pulse Resp B/P Pulse Ox O2 Delivery O2 Flow Rate FiO2 12/27/16 13:15 84 14 97 45 12/27/16 11:35 97.7 108/58 Intake and Output 12/26/16 12/26/16 12/27/16 15:00 23:00 07:00 Intake Total 970 ml 1220 ml Output Total 1000 ml 550 ml Balance -30 ml 670 ml Results Result Diagram: 12/27/16 0525 12/27/16 0500 Results 24 hrs Laboratory Tests Test 12/26/16 22:51 12/27/16 05:00 12/27/16 05:06 12/27/16 05:25 Amikacin Level Trough Sodium Level 143 Potassium Level 3.6 Chloride Level 100 Carbon Dioxide Level 35 H Anion Gap 12 Blood Urea Nitrogen 51 H Creatinine 0.69 Glucose Level 118 Calcium Level 10.9 H Phosphorus Level 2.9 Magnesium Level 2.5 Vancomycin Level Trough 21.5 *H White Blood Count 20.1 H Red Blood Count 2.88 L Hemoglobin 8.0 L Hematocrit 27.3 L Mean Corpuscular Volume 94.8 Mean Corpuscular Hemoglobin 27.8 L Mean Corpuscular Hemoglobin Concent 29.3 L Red Cell Distribution Width 17.6 H Platelet Count 156 Mean Platelet Volume 11.7 H Neutrophils % 87.9 H Lymphocytes % 5.0 L Monocytes % 4.0 Eosinophils % 2.2 Basophils % 0.2 Nucleated Red Blood Cells % 0.0 Neutrophils # 17.6 H Lymphocytes # 1.0 Monocytes # 0.8 Eosinophils # 0.5 Basophils # 0.0 Nucleated Red Blood Cells # 0.0 Test 12/27/16 08:59 Lab Scanned Report REFERENCE LAB Medications Medications Current Medications Acetaminophen (Tylenol Tab) 650 mg Q6H PRN PEG PAIN LEVEL 1-3 OR FEVER Last administered on 12/27/16 09:47; Admin Dose 650 MG; Start 11/30/16 at 05:00 Morphine Sulfate (morphine) 2 mg Q4H PRN IV PAIN LEVEL 7-10 Last administered on 12/18/16 09:14; Admin Dose 2 MG; Start 11/30/16 at 05:00 Miscellaneous Information 1 ea NOTE XX ; Start 11/30/16 at 05:00 Glucose (Glutose) 15 gm Q15M PRN PO DECREASED GLUCOSE; Start 11/30/16 at 05:00 Glucose (Glutose) 22.5 gm Q15M PRN PO DECREASED GLUCOSE; Start 11/30/16 at 05: 00 Dextrose (D50w Syringe) 25 ml Q15M PRN IV DECREASED GLUCOSE; Start 11/30/16 at 05:00 Dextrose (D50w Syringe) 50 ml Q15M PRN IV DECREASED GLUCOSE; Start 11/30/16 at 05:00 Glucagon (Glucagen) 1 mg Q15M PRN IM DECREASED GLUCOSE; Start 11/30/16 at 05:00 Glucose (Glutose) 15 gm Q15M PRN BUCCAL DECREASED GLUCOSE; Start 11/30/16 at 05 :00 Metoprolol Tartrate (Lopressor) 2.5 mg Q2H PRN IV heart rate over 110 Last administered on 12/17/16 06:57; Admin Dose 2.5 MG; Start 12/01/16 at 12:00 Collagenase (Santyl) 1 applic DAILY TOP Last administered on 12/27/16 09:49; Admin Dose 1 APPLIC; Start 12/02/16 at 12:00 Collagenase (Santyl) 1 applic DAILY PRN TOP PER WOUND CARE ORDERS; Start at 11:30 Metoprolol Tartrate (Lopressor) 50 mg BID GTB Last administered on 12/27/16 09 :48; Admin Dose 50 MG; Start 12/04/16 at 21:00 Famotidine (Pepcid) 20 mg DAILY GTB Last administered on 12/27/16 09:47; Admin Dose 20 MG; Start 12/05/16 at 09:00 Losartan Potassium (Cozaar) 25 mg BID PO Last administered on 12/27/16 09:48; Admin Dose 25 MG; Start 12/05/16 at 21:00 Hydralazine HCl 10 mg 10 mg Q6H PRN IV ELEVATED BLOOD PRESSURE Last administered on 12/13/16 18:26; Admin Dose 10 MG; Start 12/06/16 at 16:00 Ceftazidime/ Dextrose (Fortaz 2gm/50 ml (Pmx)) 50 ml @ 100 mls/hr Q8 IVPB Last administered on 12/27/16 14:14; Admin Dose 100 MLS/HR; Start 12/09/16 at 14:00 Amikacin Sulfate (Amikacin Iv Per Pharmacy) AMIKACIN PER PHARMACY NOTE XX ; Start 12/10/16 at 19:00 Ketoconazole (Nizoral Shampoo) 1 applic Q12 TOP Last administered on 12/27/16 09:49; Admin Dose 1 APPLIC; Start 12/14/16 at 21:00 Ketoconazole 1 applic 1 applic BID TOP Last administered on 12/27/16 09:49; Admin Dose 1 APPLIC; Start 12/14/16 at 21:00 Amikacin Sulfate/ Sodium Chloride (Amikacin/NS) 150 ml @ 150 mls/hr Q72H IVPB Last administered on 12/27/16 02:12; Admin Dose 150 MLS/HR; Start 12/21/16 at 00 :00 Fluconazole (Diflucan) 100 mg DAILY PO Last administered on 12/27/16 09:47; Admin Dose 100 MG; Start 12/20/16 at 13:30 ELI VALDEZ NP December 27, 2016 14:42
--- NOTE | 2016-12-27 14:56 | CONS ---
Date/Time of Note Date/Time of Note DATE: 12/27/16 TIME: 14:56 Consult Date/Type/Reason Admit Date/Time Nov 30, 2016 at 04:54 Initial Consult Date 12/01/16 Type of Consultation: Pulmonary Ordering Provider: CHARLETTE RUTHERFORD Subjective Patient appears comfortable no new events Objective Vital Signs Date Time Temp Pulse Resp B/P Pulse Ox O2 Delivery O2 Flow Rate FiO2 12/27/16 13:15 84 14 97 45 12/27/16 11:35 97.7 108/58 Intake and Output 12/26/16 12/26/16 12/27/16 15:00 23:00 07:00 Intake Total 970 ml 1220 ml Output Total 1000 ml 550 ml Balance -30 ml 670 ml Exam PHYSICAL EXAMINATION GENERAL: Elderly gentleman, on mechanical ventilation appears comfortable VITAL SIGNS: see below. HEENT: Pupils equal, round, and reactive to light. Tracheostomy site clean and intact. CARDIAC: S1, S2, 1/6 systolic ejection murmur CHEST: Diminished air entry bilaterally. ABDOMEN: Mildly distended. Bowel sounds present no guarding or rebound EXTREMITIES: No cyanosis, clubbing edema +1 NEUROLOGIC: unable to assess Results/Medications Result Diagram: 12/27/16 0525 12/27/[address] chest Confirms persistent bilateral infiltrates no significant change Laboratory Tests Test 12/26/16 22:51 12/27/16 05:00 12/27/16 05:06 12/27/16 05:25 Amikacin Level Trough Sodium Level 143 Potassium Level 3.6 Chloride Level 100 Carbon Dioxide Level 35 H Anion Gap 12 Blood Urea Nitrogen 51 H Creatinine 0.69 Glucose Level 118 Calcium Level 10.9 H Phosphorus Level 2.9 Magnesium Level 2.5 Vancomycin Level Trough 21.5 *H White Blood Count 20.1 H Red Blood Count 2.88 L Hemoglobin 8.0 L Hematocrit 27.3 L Mean Corpuscular Volume 94.8 Mean Corpuscular Hemoglobin 27.8 L Mean Corpuscular Hemoglobin Concent 29.3 L Red Cell Distribution Width 17.6 H Platelet Count 156 Mean Platelet Volume 11.7 H Neutrophils % 87.9 H Lymphocytes % 5.0 L Monocytes % 4.0 Eosinophils % 2.2 Basophils % 0.2 Nucleated Red Blood Cells % 0.0 Neutrophils # 17.6 H Lymphocytes # 1.0 Monocytes # 0.8 Eosinophils # 0.5 Basophils # 0.0 Nucleated Red Blood Cells # 0.0 Test 12/27/16 08:59 Lab Scanned Report REFERENCE LAB Medications Current Medications Acetaminophen (Tylenol Tab) 650 mg Q6H PRN PEG PAIN LEVEL 1-3 OR FEVER Last administered on 12/27/16 09:47; Admin Dose 650 MG; Start 11/30/16 at 05:00 Morphine Sulfate (morphine) 2 mg Q4H PRN IV PAIN LEVEL 7-10 Last administered on 12/18/16 09:14; Admin Dose 2 MG; Start 11/30/16 at 05:00 Miscellaneous Information 1 ea NOTE XX ; Start 11/30/16 at 05:00 Glucose (Glutose) 15 gm Q15M PRN PO DECREASED GLUCOSE; Start 11/30/16 at 05:00 Glucose (Glutose) 22.5 gm Q15M PRN PO DECREASED GLUCOSE; Start 11/30/16 at 05: 00 Dextrose (D50w Syringe) 25 ml Q15M PRN IV DECREASED GLUCOSE; Start 11/30/16 at 05:00 Dextrose (D50w Syringe) 50 ml Q15M PRN IV DECREASED GLUCOSE; Start 11/30/16 at 05:00 Glucagon (Glucagen) 1 mg Q15M PRN IM DECREASED GLUCOSE; Start 11/30/16 at 05:00 Glucose (Glutose) 15 gm Q15M PRN BUCCAL DECREASED GLUCOSE; Start 11/30/16 at 05 :00 Metoprolol Tartrate (Lopressor) 2.5 mg Q2H PRN IV heart rate over 110 Last administered on 12/17/16 06:57; Admin Dose 2.5 MG; Start 12/01/16 at 12:00 Collagenase (Santyl) 1 applic DAILY TOP Last administered on 12/27/16 09:49; Admin Dose 1 APPLIC; Start 12/02/16 at 12:00 Collagenase (Santyl) 1 applic DAILY PRN TOP PER WOUND CARE ORDERS; Start at 11:30 Metoprolol Tartrate (Lopressor) 50 mg BID GTB Last administered on 12/27/16 09 :48; Admin Dose 50 MG; Start 12/04/16 at 21:00 Famotidine (Pepcid) 20 mg DAILY GTB Last administered on 12/27/16 09:47; Admin Dose 20 MG; Start 12/05/16 at 09:00 Losartan Potassium (Cozaar) 25 mg BID PO Last administered on 12/27/16 09:48; Admin Dose 25 MG; Start 12/05/16 at 21:00 Hydralazine HCl 10 mg 10 mg Q6H PRN IV ELEVATED BLOOD PRESSURE Last administered on 12/13/16 18:26; Admin Dose 10 MG; Start 12/06/16 at 16:00 Ceftazidime/ Dextrose (Fortaz 2gm/50 ml (Pmx)) 50 ml @ 100 mls/hr Q8 IVPB Last administered on 12/27/16 14:14; Admin Dose 100 MLS/HR; Start 12/09/16 at 14:00 Amikacin Sulfate (Amikacin Iv Per Pharmacy) AMIKACIN PER PHARMACY NOTE XX ; Start 12/10/16 at 19:00 Ketoconazole (Nizoral Shampoo) 1 applic Q12 TOP Last administered on 12/27/16 09:49; Admin Dose 1 APPLIC; Start 12/14/16 at 21:00 Ketoconazole 1 applic 1 applic BID TOP Last administered on 12/27/16 09:49; Admin Dose 1 APPLIC; Start 12/14/16 at 21:00 Amikacin Sulfate/ Sodium Chloride (Amikacin/NS) 150 ml @ 150 mls/hr Q72H IVPB Last administered on 12/27/16 02:12; Admin Dose 150 MLS/HR; Start 12/21/16 at 00 :00 Fluconazole (Diflucan) 100 mg DAILY PO Last administered on 12/27/16 09:47; Admin Dose 100 MG; Start 12/20/16 at 13:30 Assessment/Plan Chief Complaint/Hosp Course Assessment 1. Acute on chronic hypoxemic respiratory failure on mechanical ventilation via tracheostomy 2. Persistent leukocytosis likely polymicrobial sepsis bilateral pneumonia 3. Mild dehydration 4. Anemia of chronic disease 5. History of CVA 6. Dysphagia with G-tube Plan 1. Continue mechanical ventilation 2. Continue broad-spectrum antibiotics persistent leukocytosis agree with CT chest to rule out abscess 3. Tube feeding as tolerated 4. Correction of electrolyte abnormalities 5. DVT GI prophylaxis Disposition Continue telemetry care Discussed with primary care If infiltrates do not improve by Friday will consider bronchoscopy with lavage Problems: JOSEF HERRING MD, FCCP December 27, 2016 14:56
[2016-12-28] VITALS (24 sets, daily range): BP systolic 118–129; BP diastolic 56–71; PULSE 75–105; RESP 14–26
[2016-12-28] MEDS: IPRATROPIUM (HFA) 12.9 GM INHALER INH SCH ×4 (00:59→23:27)
[2016-12-28] MEDS: LEVALBUTEROL (HFA) 15 GM INHALER INH SCH ×4 (00:59→23:27)
[2016-12-28] MEDS: CEFTAZIDIME 2GM/50 ML (PMX) 50 ML IVPB SCH ×3 (05:37→21:32)
[2016-12-28] MEDS: VANCOMYCIN 750 MG in SOD CHLORIDE 0.9% 150 ML IVPB SCH (06:12)
[2016-12-28 07:08] LABS: ADD SCAN DIFF NO
[2016-12-28 07:15] LABS: ABNORMAL IP MESSAGE 1; BASOPHILS % 0.1 % (0.0-2.0); EOSINOPHILS # 0.2 10^3/ul (0.0-0.5); EOSINOPHILS % 1.1 % (0.0-7.0); HEMATOCRIT 27.3 % (42.0-52.0); HEMOGLOBIN 7.9 g/dl (14.0-18.0); LYMPHOCYTES # 0.8 10^3/ul (0.8-2.9); MEAN CORPUSCULAR HEMOGLOBIN 27.6 pg (29.0-33.0); MEAN CORPUSCULAR HGB CONC 28.9 g/dl (32.0-37.0); MEAN CORPUSCULAR VOLUME 95.5 fl (82.0-101.0); MEAN PLATELET VOLUME 12.1 fl (7.4-10.4); MONOCYTE # 0.7 10^3/ul (0.3-0.9); MONOCYTES % 3.5 % (0.0-11.0); NEUTROPHIL # 17.8 10^3/ul (1.6-7.5); NEUTROPHILS % 90.8 % (39.0-77.0); PLATELET COUNT 135 10^3/UL (140-415); RED BLOOD COUNT 2.86 10^6/ul (4.70-6.10); WHITE BLOOD COUNT 19.6 10^3/ul (4.8-10.8)
[2016-12-28 07:37] LABS: MAGNESIUM 2.6 mg/dl (1.7-2.5); PHOSPHORUS 3.2 mg/dl (2.5-4.9); POTASSIUM 4.3 mmol/L (3.5-5.1)
[2016-12-28 07:40] LABS: CREATININE 0.76 mg/dl (0.61-1.24)
[2016-12-28] MEDS: COLLAGENASE 30 GM TUBE TOP SCH (09:00)
[2016-12-28] MEDS: METOPROLOL 25 MG TAB GTB SCH ×2 (09:57→21:14)
[2016-12-28] MEDS: FAMOTIDINE 20 MG TAB GTB SCH (09:57)
[2016-12-28] MEDS: FLUCONAZOLE 100 MG TAB PO SCH (09:57)
[2016-12-28] MEDS: LOSARTAN 25 MG TAB PO SCH ×2 (09:57→21:14)
[2016-12-28] MEDS: KETOCONAZOLE 2% SHAMPOO 120 ML BTL TOP SCH ×2 (09:58→21:16)
[2016-12-28] MEDS: KETOCONAZOLE 2% 15 GM CR TOP SCH ×2 (09:59→21:15)
--- NOTE | 2016-12-28 11:11 | PN ---
Date/Time of Note Date/Time of Note DATE: 12/28/16 TIME: 11:01 Assessment/Plan VTE Prophylaxis VTE Prophylaxis Intervention: SCD's Lines/Catheters IV Catheter Type (from Nrsg): PICC Line Central line still needed: Yes (for IV access ) Urinary Cath still in place: Yes Reason Cath still needed: other (indicate) (monitor UOP ) Assessment/Plan Assessment/Plan 81 yo man with: 1. Sepsis, Bilateral Pneumonia, HCAP vs VAP, CT chest and also confirmd on WBC scan with severe bilateral PNA. Sputum cx polymicrobial with MDRO pseudomonas and Providencia. Patient requiring at least Q3 to 4hrs suctioning for now with copious amount of secretions but a little less. Patient on quadruple abx with Diflucan po, Amikacin, Vancomycin and Fortaz No other source identified on WBC scan besides PNA bilateral R>L Appreciate ID recs, WBC remains around 20k, CT chest 12/26 still with unchanged finding of R>>L multifocal PNA with dense infiltrates Discussed with Pulmonary and plan for Bronch with BAL RML on Friday if no clinical improvement. CXR in AM on Friday Lasix x1 today for anasarca even if chem more consistent with intravascular depeletion .. 2. Chronic vent-dependent respiratory failure, stable on Vent, oxygenating well on FiO2 45% currently. With also extensive b/l PNA, large amount of secretions Continue Vancomycin, Ceftazidime, Diflucan and Amikacin. Appreciate Pulmonary and ID recommendations 3. Hypokalemia/Hypomagnesemia: BMP Ok today, will replete electrolytes prn. 4. Severe anemia on admission, possible GI bleeding, but if so resolved now. Continue PPI. Transfuse for Hb<7.5 hb, stable so far close to 8.0 No evidence for active bleeding for now. Back on Iron supplement. 5. Elevated troponins in setting of a fib with RVR and sepsis, CAD In SR currently and HR controlled with Bblocker, up to 50 mg po bid. Cardiology prn. No anticoag due to Anemia 6. MRSA nares: Bactroban, on Vancomycin 7. Sacral Decub, seems to be healing well per RN and wound care but cx polymicrobial with MDRO. Abx adjusted by ID and on wound care protocol. 8. Hypertension: Continue Metoprolol at 50 mg po bid and Losartan added as BP tolerating. Prophylaxis: Continue SCDs and Famotidine. Disposition: On contact isolation and Telemetry. WBC scan confirming PNA as only current source of active infection, per ID continue current abx and aggressive pulmonary toilet. Possible need for bronchoscopy with RML BAL Friday. Plan for d/c back to Subacute but may need LTAC soon if WBC trending down and stable. Prognosis remains poor to fair at best. Patient is DNR Subjective 24 Hr Interval Summary Free Text/Dictation Patient's clinical status remains unchanged with no further improvement so far and poor prognosis despite aggressive therapy, bronch being considered by Friday to see if can get lavage WBC still up while on bread spectrum abx and no new cx results DNR Exam/Review of Systems Vital Signs Vitals Vital Signs Date Time Temp Pulse Resp B/P Pulse Ox O2 Delivery O2 Flow Rate FiO2 12/28/16 08:29 84 12/28/16 07:22 97.8 128/56 96 12/28/16 07:20 15 45 Intake and Output 12/27/16 12/27/16 12/28/16 15:00 23:00 07:00 Intake Total 50 ml 1070 ml Output Total 500 ml 650 ml Balance -450 ml 420 ml Exam Constitutional: frail (lethargic), other Neck: other (trach in place ) Respiratory: diminished breath sounds (bilaterally ), other (on Vent with FiO2 still at 45 ) Cardiovascular: nl pulses, regular rate and rhythm Gastrointestinal: non-tender, other (G tube in place and tolerating tube feedings ), soft Musculoskeletal: other (muscle wasting ) Extremities: normal pulses, other (anasara +1 at least ) Neurological: TREE DEADENER II-XII intact, lethargic, other (quadriparesis ) Results Result Diagram: 12/28/16 0612/28/16619 Results 24 hrs Laboratory Tests Test 12/28/16 06:20 White Blood Count 19.6 H Red Blood Count 2.86 L Hemoglobin 7.9 L Hematocrit 27.3 L Mean Corpuscular Volume 95.5 Mean Corpuscular Hemoglobin 27.6 L Mean Corpuscular Hemoglobin Concent 28.9 L Red Cell Distribution Width 18.0 H Platelet Count 135 L Mean Platelet Volume 12.1 H Neutrophils % 90.8 H Lymphocytes % 4.0 L Monocytes % 3.5 Eosinophils % 1.1 Basophils % 0.1 Nucleated Red Blood Cells % 0.0 Neutrophils # 17.8 H Lymphocytes # 0.8 Monocytes # 0.7 Eosinophils # 0.2 Basophils # 0.0 Nucleated Red Blood Cells # 0.0 Sodium Level 143 Potassium Level 4.3 Chloride Level 102 Carbon Dioxide Level 34 H Anion Gap 11 Blood Urea Nitrogen 60 H Creatinine 0.76 Glucose Level 140 Calcium Level 11.0 H Phosphorus Level 3.2 Magnesium Level 2.6 H Medications Medications Current Medications Acetaminophen (Tylenol Tab) 650 mg Q6H PRN PEG PAIN LEVEL 1-3 OR FEVER Last administered on 12/27/16 09:47; Admin Dose 650 MG; Start 11/30/16 at 05:00 Morphine Sulfate (morphine) 2 mg Q4H PRN IV PAIN LEVEL 7-10 Last administered on 12/18/16 09:14; Admin Dose 2 MG; Start 11/30/16 at 05:00 Miscellaneous Information 1 ea NOTE XX ; Start 11/30/16 at 05:00 Glucose (Glutose) 15 gm Q15M PRN PO DECREASED GLUCOSE; Start 11/30/16 at 05:00 Glucose (Glutose) 22.5 gm Q15M PRN PO DECREASED GLUCOSE; Start 11/30/16 at 05: 00 Dextrose (D50w Syringe) 25 ml Q15M PRN IV DECREASED GLUCOSE; Start 11/30/16 at 05:00 Dextrose (D50w Syringe) 50 ml Q15M PRN IV DECREASED GLUCOSE; Start 11/30/16 at 05:00 Glucagon (Glucagen) 1 mg Q15M PRN IM DECREASED GLUCOSE; Start 11/30/16 at 05:00 Glucose (Glutose) 15 gm Q15M PRN BUCCAL DECREASED GLUCOSE; Start 11/30/16 at 05 :00 Metoprolol Tartrate (Lopressor) 2.5 mg Q2H PRN IV heart rate over 110 Last administered on 12/17/16 06:57; Admin Dose 2.5 MG; Start 12/01/16 at 12:00 Collagenase (Santyl) 1 applic DAILY TOP Last administered on 12/27/16 09:49; Admin Dose 1 APPLIC; Start 12/02/16 at 12:00 Collagenase (Santyl) 1 applic DAILY PRN TOP PER WOUND CARE ORDERS; Start at 11:30 Metoprolol Tartrate (Lopressor) 50 mg BID GTB Last administered on 12/28/16 09 :57; Admin Dose 50 MG; Start 12/04/16 at 21:00 Famotidine (Pepcid) 20 mg DAILY GTB Last administered on 12/28/16 09:57; Admin Dose 20 MG; Start 12/05/16 at 09:00 Losartan Potassium (Cozaar) 25 mg BID PO Last administered on 12/28/16 09:57; Admin Dose 25 MG; Start 12/05/16 at 21:00 Hydralazine HCl 10 mg 10 mg Q6H PRN IV ELEVATED BLOOD PRESSURE Last administered on 12/13/16 18:26; Admin Dose 10 MG; Start 12/06/16 at 16:00 Ceftazidime/ Dextrose (Fortaz 2gm/50 ml (Pmx)) 50 ml @ 100 mls/hr Q8 IVPB Last administered on 12/28/16 05:37; Admin Dose 100 MLS/HR; Start 12/09/16 at 14:00 Amikacin Sulfate (Amikacin Iv Per Pharmacy) AMIKACIN PER PHARMACY NOTE XX ; Start 12/10/16 at 19:00 Ketoconazole (Nizoral Shampoo) 1 applic Q12 TOP Last administered on 12/28/16 09:58; Admin Dose 1 APPLIC; Start 12/14/16 at 21:00 Ketoconazole 1 applic 1 applic BID TOP Last administered on 12/28/16 09:59; Admin Dose 1 APPLIC; Start 12/14/16 at 21:00 Amikacin Sulfate/ Sodium Chloride (Amikacin/NS) 150 ml @ 150 mls/hr Q72H IVPB Last administered on 12/27/16 02:12; Admin Dose 150 MLS/HR; Start 12/21/16 at 00 :00; Status Future Hold Fluconazole 100 mg 100 mg DAILY PO Last administered on 12/28/16 09:57; Admin Dose 100 MG; Start 12/20/16 at 13:30 Vancomycin HCl/ Sodium Chloride (Vancocin/NS) 150 ml @ 75 mls/hr Q36H IVPB Last administered on 12/28/16 06:12; Admin Dose 75 MLS/HR; Start 12/28/16 at 06 :00 CHARLETTE RUTHERFORD December 28, 2016 11:11
[2016-12-28] MEDS ORDERED: FUROSEMIDE 20 MG INJ IV ONE (11:30)
--- NOTE | 2016-12-28 16:09 | CONS ---
Date/Time of Note Date/Time of Note DATE: 12/28/16 TIME: 16:05 Consult Date/Type/Reason Admit Date/Time Nov 30, 2016 at 04:54 Initial Consult Date 12/01/16 Type of Consultation: Pulmonary Ordering Provider: CHARLETTE RUTHERFORD Subjective No overnight events. Objective Vital Signs Date Time Temp Pulse Resp B/P Pulse Ox O2 Delivery O2 Flow Rate FiO2 12/28/16 15:35 98.5 78 18 121/56 96 12/28/16 13:30 45 Intake and Output 12/27/16 12/27/16 12/28/16 15:00 23:00 07:00 Intake Total 50 ml 1070 ml Output Total 500 ml 650 ml Balance -450 ml 420 ml Exam CARDIAC: S1, S2, 1/6 systolic ejection murmur CHEST: Coarse BS bilaterally ABDOMEN: Mildly distended. Bowel sounds present no guarding or rebound EXTREMITIES: No cyanosis, clubbing edema +1 Results/Medications Result Diagram: 12/28/16 0620 12/28/16 0620 Results 24 hrs Laboratory Tests Test 12/28/16 06:20 White Blood Count 19.6 H Red Blood Count 2.86 L Hemoglobin 7.9 L Hematocrit 27.3 L Mean Corpuscular Volume 95.5 Mean Corpuscular Hemoglobin 27.6 L Mean Corpuscular Hemoglobin Concent 28.9 L Red Cell Distribution Width 18.0 H Platelet Count 135 L Mean Platelet Volume 12.1 H Neutrophils % 90.8 H Lymphocytes % 4.0 L Monocytes % 3.5 Eosinophils % 1.1 Basophils % 0.1 Nucleated Red Blood Cells % 0.0 Neutrophils # 17.8 H Lymphocytes # 0.8 Monocytes # 0.7 Eosinophils # 0.2 Basophils # 0.0 Nucleated Red Blood Cells # 0.0 Sodium Level 143 Potassium Level 4.3 Chloride Level 102 Carbon Dioxide Level 34 H Anion Gap 11 Blood Urea Nitrogen 60 H Creatinine 0.76 Glucose Level 140 Calcium Level 11.0 H Phosphorus Level 3.2 Magnesium Level 2.6 H Medications Current Medications Acetaminophen (Tylenol Tab) 650 mg Q6H PRN PEG PAIN LEVEL 1-3 OR FEVER Last administered on 12/27/16t 09:47; Admin Dose 650 MG; Start 11/30/16 at 05:00 Morphine Sulfate (morphine) 2 mg Q4H PRN IV PAIN LEVEL 7-10 Last administered on 12/18/16 09:14; Admin Dose 2 MG; Start 11/30/16 at 05:00 Miscellaneous Information 1 ea NOTE XX ; Start 11/30/16 at 05:00 Glucose (Glutose) 15 gm Q15M PRN PO DECREASED GLUCOSE; Start 11/30/16 at 05:00 Glucose (Glutose) 22.5 gm Q15M PRN PO DECREASED GLUCOSE; Start 11/30/16 at 05: 00 Dextrose (D50w Syringe) 25 ml Q15M PRN IV DECREASED GLUCOSE; Start 11/30/16 at 05:00 Dextrose (D50w Syringe) 50 ml Q15M PRN IV DECREASED GLUCOSE; Start 11/30/16 at 05:00 Glucagon (Glucagen) 1 mg Q15M PRN IM DECREASED GLUCOSE; Start 11/30/16 at 05:00 Glucose (Glutose) 15 gm Q15M PRN BUCCAL DECREASED GLUCOSE; Start 11/30/16 at 05 :00 Metoprolol Tartrate (Lopressor) 2.5 mg Q2H PRN IV heart rate over 110 Last administered on 12/17/16 06:57; Admin Dose 2.5 MG; Start 12/01/16 at 12:00 Collagenase (Santyl) 1 applic DAILY TOP Last administered on 12/27/16 09:49; Admin Dose 1 APPLIC; Start 12/02/16 at 12:00 Collagenase (Santyl) 1 applic DAILY PRN TOP PER WOUND CARE ORDERS; Start at 11:30 Metoprolol Tartrate (Lopressor) 50 mg BID GTB Last administered on 12/28/16 09 :57; Admin Dose 50 MG; Start 12/04/16 at 21:00 Famotidine (Pepcid) 20 mg DAILY GTB Last administered on 12/28/16 09:57; Admin Dose 20 MG; Start 12/05/16 at 09:00 Losartan Potassium (Cozaar) 25 mg BID PO Last administered on 12/28/16 09:57; Admin Dose 25 MG; Start 12/05/16 at 21:00 Hydralazine HCl 10 mg 10 mg Q6H PRN IV ELEVATED BLOOD PRESSURE Last administered on 12/13/16 18:26; Admin Dose 10 MG; Start 12/06/16 at 16:00 Ceftazidime/ Dextrose (Fortaz 2gm/50 ml (Pmx)) 50 ml @ 100 mls/hr Q8 IVPB Last administered on 12/28/16 14:30; Admin Dose 100 MLS/HR; Start 12/09/16 at 14:00 Amikacin Sulfate (Amikacin Iv Per Pharmacy) AMIKACIN PER PHARMACY NOTE XX ; Start 12/10/16 at 19:00 Ketoconazole (Nizoral Shampoo) 1 applic Q12 TOP Last administered on 12/28/16 09:58; Admin Dose 1 APPLIC; Start 12/14/16 at 21:00 Ketoconazole 1 applic 1 applic BID TOP Last administered on 12/28/16 09:59; Admin Dose 1 APPLIC; Start 12/14/16 at 21:00 Amikacin Sulfate/ Sodium Chloride (Amikacin/NS) 150 ml @ 150 mls/hr Q72H IVPB Last administered on 12/27/16 02:12; Admin Dose 150 MLS/HR; Start 12/21/16 at 00 :00; Status Future Hold Fluconazole 100 mg 100 mg DAILY PO Last administered on 12/28/16 09:57; Admin Dose 100 MG; Start 12/20/16 at 13:30 Vancomycin HCl/ Sodium Chloride (Vancocin/NS) 150 ml @ 75 mls/hr Q36H IVPB Last administered on 12/28/16 06:12; Admin Dose 75 MLS/HR; Start 12/28/16 at 06 :00 Assessment/Plan Additional Assessment/Plan IMP: 1. Acute on chronic hypoxemic respiratory failure on mechanical ventilation via tracheostomy 2. 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 Mild dehydration 4. Anemia of chronic disease 5. History of CVA 6. Dysphagia with G-tube RECS: 1. Continue vent support 2. Abx per ID 3. Tube feeding as tolerated 4. Patient not a suitable candidate for any surgical intervention in case of RLL pulm gangrene 5. DVT GI prophylaxis ARTIS BRUNO MD December 28, 2016 16:09
--- NOTE | 2016-12-28 19:55 | CONS ---
Date/Time of Note Date/Time of Note DATE: 12/28/16 TIME: 19:54 Assessment/Plan Assessment/Plan Chief Complaint/Hosp Course SUBJECTIVE: No events overnight. No fevers. The patient is lethargic, lying comfortably in bed. INDWELLINGS: Trach, PEG, Cherry, PICC line. ANTIMICROBIALS: 1. Amikacin. 2. Fortaz. 3. Vancomycin. 4. Diflucan PHYSICAL EXAMINATION: GENERAL: This is well-developed, fragile, elderly man who is in no distress. HEENT: Head atraumatic, normocephalic. Sclerae anicteric. Buccal mucosa dry. NECK: Supple. Tracheostomy present. CHEST: Rise symmetrical. Breath sounds clear, diminished to bases. HEART: S1, S2. ABDOMEN: Soft, bowel sounds present. EXTREMITIES: No cyanosis. ASSESSMENT: 1. Sepsis with persistent leukocytosis 2 to #2. 2. Healthcare-associated pneumonia with sputum culture growing Pseudomonas aeruginosa and Providencia stuartii. 3. Sacral decubitus ulcer, improving. 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 5. Hypertension. 6. Dysphagia. PLAN: Clinically unchanged, continue abx, f/u repeat sputum cx, pulmonary rec-s DW staff Problems: Consultation Date/Type/Reason Admit Date/Time Nov 30, 2016 at 04:54 Initial Consult Date 12/01/16 Type of Consultation: ID Referring Provider: CHARLETTE RUTHERFORD Exam/Review of Systems Vital Signs Vitals Vital Signs Date Time Temp Pulse Resp B/P Pulse Ox O2 Delivery O2 Flow Rate FiO2 12/28/16 19:51 89 14 97 45 12/28/16 15:35 98.5 121/56 Intake and Output 12/27/16 12/27/16 12/28/16 15:00 23:00 07:00 Intake Total 50 ml 1070 ml Output Total 500 ml 650 ml Balance -450 ml 420 ml Results Result Diagram: 12/28/16 0620 12/28/16 0620 Results 24 hrs Laboratory Tests Test 12/28/16 06:20 White Blood Count 19.6 H Red Blood Count 2.86 L Hemoglobin 7.9 L Hematocrit 27.3 L Mean Corpuscular Volume 95.5 Mean Corpuscular Hemoglobin 27.6 L Mean Corpuscular Hemoglobin Concent 28.9 L Red Cell Distribution Width 18.0 H Platelet Count 135 L Mean Platelet Volume 12.1 H Neutrophils % 90.8 H Lymphocytes % 4.0 L Monocytes % 3.5 Eosinophils % 1.1 Basophils % 0.1 Nucleated Red Blood Cells % 0.0 Neutrophils # 17.8 H Lymphocytes # 0.8 Monocytes # 0.7 Eosinophils # 0.2 Basophils # 0.0 Nucleated Red Blood Cells # 0.0 Sodium Level 143 Potassium Level 4.3 Chloride Level 102 Carbon Dioxide Level 34 H Anion Gap 11 Blood Urea Nitrogen 60 H Creatinine 0.76 Glucose Level 140 Calcium Level 11.0 H Phosphorus Level 3.2 Magnesium Level 2.6 H Medications Medications Current Medications Acetaminophen (Tylenol Tab) 650 mg Q6H PRN PEG PAIN LEVEL 1-3 OR FEVER Last administered on 12/27/16 09:47; Admin Dose 650 MG; Start 11/30/16 at 05:00 Morphine Sulfate (morphine) 2 mg Q4H PRN IV PAIN LEVEL 7-10 Last administered on 12/18/16 09:14; Admin Dose 2 MG; Start 11/30/16 at 05:00 Miscellaneous Information 1 ea NOTE XX ; Start 11/30/16 at 05:00 Glucose (Glutose) 15 gm Q15M PRN PO DECREASED GLUCOSE; Start 11/30/16 at 05:00 Glucose (Glutose) 22.5 gm Q15M PRN PO DECREASED GLUCOSE; Start 11/30/16 at 05: 00 Dextrose (D50w Syringe) 25 ml Q15M PRN IV DECREASED GLUCOSE; Start 11/30/16 at 05:00 Dextrose (D50w Syringe) 50 ml Q15M PRN IV DECREASED GLUCOSE; Start 11/30/16 at 05:00 Glucagon (Glucagen) 1 mg Q15M PRN IM DECREASED GLUCOSE; Start 11/30/16 at 05:00 Glucose (Glutose) 15 gm Q15M PRN BUCCAL DECREASED GLUCOSE; Start 11/30/16 at 05 :00 Metoprolol Tartrate (Lopressor) 2.5 mg Q2H PRN IV heart rate over 110 Last administered on 12/17/16 06:57; Admin Dose 2.5 MG; Start 12/01/16 at 12:00 Collagenase (Santyl) 1 applic DAILY TOP Last administered on 12/27/16 09:49; Admin Dose 1 APPLIC; Start 12/02/16 at 12:00 Collagenase (Santyl) 1 applic DAILY PRN TOP PER WOUND CARE ORDERS; Start at 11:30 Metoprolol Tartrate (Lopressor) 50 mg BID GTB Last administered on 12/28/16 09 :57; Admin Dose 50 MG; Start 12/04/16 at 21:00 Famotidine (Pepcid) 20 mg DAILY GTB Last administered on 12/28/16 09:57; Admin Dose 20 MG; Start 12/05/16 at 09:00 Losartan Potassium (Cozaar) 25 mg BID PO Last administered on 12/28/16 09:57; Admin Dose 25 MG; Start 12/05/16 at 21:00 Hydralazine HCl 10 mg 10 mg Q6H PRN IV ELEVATED BLOOD PRESSURE Last administered on 12/13/16 18:26; Admin Dose 10 MG; Start 12/06/16 at 16:00 Ceftazidime/ Dextrose (Fortaz 2gm/50 ml (Pmx)) 50 ml @ 100 mls/hr Q8 IVPB Last administered on 12/28/16 14:30; Admin Dose 100 MLS/HR; Start 12/09/16 at 14:00 Amikacin Sulfate (Amikacin Iv Per Pharmacy) AMIKACIN PER PHARMACY NOTE XX ; Start 12/10/16 at 19:00 Ketoconazole (Nizoral Shampoo) 1 applic Q12 TOP Last administered on 12/28/16 09:58; Admin Dose 1 APPLIC; Start 12/14/16 at 21:00 Ketoconazole 1 applic 1 applic BID TOP Last administered on 12/28/16 09:59; Admin Dose 1 APPLIC; Start 12/14/16 at 21:00 Amikacin Sulfate/ Sodium Chloride (Amikacin/NS) 150 ml @ 150 mls/hr Q72H IVPB Last administered on 12/27/16 02:12; Admin Dose 150 MLS/HR; Start 12/21/16 at 00 :00; Status Future Hold Fluconazole 100 mg 100 mg DAILY PO Last administered on 12/28/16 09:57; Admin Dose 100 MG; Start 12/20/16 at 13:30 Vancomycin HCl/ Sodium Chloride (Vancocin/NS) 150 ml @ 75 mls/hr Q36H IVPB Last administered on 12/28/16 06:12; Admin Dose 75 MLS/HR; Start 12/28/16 at 06 :00 ELI VALDEZ NP December 28, 2016 19:55
[2016-12-29] VITALS (24 sets, daily range): BP systolic 104–125; BP diastolic 55–88; PULSE 75–91; RESP 14–18
[2016-12-29] MEDS: CEFTAZIDIME 2GM/50 ML (PMX) 50 ML IVPB SCH (05:50)
[2016-12-29 06:04] LABS: ADD SCAN DIFF NO
[2016-12-29 06:08] LABS: ABNORMAL IP MESSAGE 1; BASOPHILS % 0.2 % (0.0-2.0); EOSINOPHILS # 0.6 10^3/ul (0.0-0.5); EOSINOPHILS % 5.3 % (0.0-7.0); HEMATOCRIT 26.8 % (42.0-52.0); HEMOGLOBIN 7.7 g/dl (14.0-18.0); LYMPHOCYTES # 0.8 10^3/ul (0.8-2.9); LYMPHOCYTES % 6.6 % (15.0-51.0); MEAN CORPUSCULAR HEMOGLOBIN 27.5 pg (29.0-33.0); MEAN CORPUSCULAR HGB CONC 28.7 g/dl (32.0-37.0); MEAN CORPUSCULAR VOLUME 95.7 fl (82.0-101.0); MEAN PLATELET VOLUME 11.9 fl (7.4-10.4); MONOCYTE # 0.7 10^3/ul (0.3-0.9); MONOCYTES % 5.4 % (0.0-11.0); NEUTROPHIL # 9.9 10^3/ul (1.6-7.5); PLATELET COUNT 126 10^3/UL (140-415); RED CELL DISTRIBUTION WIDTH 18.1 % (11.5-14.5); WHITE BLOOD COUNT 12.1 10^3/ul (4.8-10.8)
[2016-12-29 06:37] LABS: POTASSIUM 4.2 mmol/L (3.5-5.1)
[2016-12-29 06:40] LABS: CALCIUM 11.4 mg/dl (8.4-10.2); CREATININE 0.89 mg/dl (0.61-1.24)
[2016-12-29 06:41] LABS: MAGNESIUM 2.7 mg/dl (1.7-2.5); PHOSPHORUS 3.5 mg/dl (2.5-4.9)
[2016-12-29] MEDS: LEVALBUTEROL (HFA) 15 GM INHALER INH SCH ×2 (08:15→15:30)
[2016-12-29] MEDS: IPRATROPIUM (HFA) 12.9 GM INHALER INH SCH ×2 (08:16→15:28)
[2016-12-29] MEDS: LOSARTAN 25 MG TAB PO SCH ×2 (08:22→21:34)
[2016-12-29] MEDS: FAMOTIDINE 20 MG TAB GTB SCH (08:22)
[2016-12-29] MEDS: FLUCONAZOLE 100 MG TAB PO SCH (08:23)
[2016-12-29] MEDS: METOPROLOL 25 MG TAB GTB SCH ×2 (08:23→21:36)
[2016-12-29] MEDS: KETOCONAZOLE 2% SHAMPOO 120 ML BTL TOP SCH ×2 (08:24→21:37)
[2016-12-29] MEDS: KETOCONAZOLE 2% 15 GM CR TOP SCH ×2 (08:24→21:37)
[2016-12-29] MEDS: COLLAGENASE 30 GM TUBE TOP SCH ×2 (08:26→14:08)
--- NOTE | 2016-12-29 10:48 | PN ---
Date/Time of Note Date/Time of Note DATE: 12/29/16 TIME: 10:34 Assessment/Plan VTE Prophylaxis VTE Prophylaxis Intervention: SCD's Lines/Catheters IV Catheter Type (from Nrsg): PICC Line Central line still needed: Yes (for IV access abd abx ) Urinary Cath still in place: Yes Reason Cath still needed: other (indicate) (monitor UOP ) Assessment/Plan Assessment/Plan 81 yo man with: 1. Sepsis, Bilateral Pneumonia, HCAP vs VAP, CT chest and also confirmd on WBC scan with severe bilateral PNA. Sputum cx polymicrobial with MDRO pseudomonas and Providencia. Patient requiring at least Q3 to 4hrs suctioning for now with copious amount of secretions but a little less. Patient on quadruple abx with Diflucan po, Amikacin, Vancomycin and Fortaz No other source identified on WBC scan besides PNA bilateral R>L Appreciate ID recs, WBC down to 12K today ...but usually fluctuating a lot. CT chest 12/26 still with unchanged finding of R>>L multifocal PNA with dense infiltrates Discussed with Pulmonary and plan for Bronch with BAL RML on Friday if no clinical improvement. CXR in AM on Friday ? RML gangrene per Pulmonary ... if so not candidate for surgical intervention... 2. Chronic vent-dependent respiratory failure, stable on Vent, oxygenating well on FiO2 45% currently. With also extensive b/l PNA, large amount of secretions Continue Vancomycin, Ceftazidime, Diflucan and Amikacin. Appreciate Pulmonary and ID recommendations, leaking trach to be changed 3. Hypokalemia/Hypomagnesemia: BMP Ok today, will replete electrolytes prn. 4. Severe anemia on admission, possible GI bleeding, but if so resolved now. Continue PPI. Transfuse for Hb<7.5 hb, stable so far close to 8.0 No evidence for active bleeding for now. Back on Iron supplement. 5. Elevated troponins in setting of a fib with RVR and sepsis, CAD In SR currently and HR controlled with Bblocker, up to 50 mg po bid. Cardiology prn. No anticoag due to Anemia 6. MRSA nares: Bactroban, on Vancomycin 7. Sacral Decub, seems to be healing well per RN and wound care but cx polymicrobial with MDRO. Abx adjusted by ID and on wound care protocol. 8. Hypertension: Continue Metoprolol at 50 mg po bid and Losartan added as BP tolerating. Prophylaxis: Continue SCDs and Famotidine. Disposition: On contact isolation and Telemetry. WBC scan confirming PNA as only current source of active infection, per ID continue current abx and aggressive pulmonary toilet. Possible need for bronchoscopy with RML BAL Friday. Plan for d/c back to Subacute but may need LTAC soon if WBC trending down and stable. Prognosis remains poor to fair at best. Patient is DNR Subjective 24 Hr Interval Summary Free Text/Dictation Patient remains unchanged Trach leaking and to be changed WBC at 12K but will trend as has been fluctuating D/c plan soon hopefully Exam/Review of Systems Vital Signs Vitals Vital Signs Date Time Temp Pulse Resp B/P Pulse Ox O2 Delivery O2 Flow Rate FiO2 12/29/16 09:52 89 18 97 45 12/29/16 07:10 98.1 104/81 Intake and Output 12/28/16 12/28/16 12/29/16 15:00 23:00 07:00 Intake Total 75 ml 1020 ml 906 ml Output Total 1000 ml 600 ml Balance 75 ml 20 ml 306 ml Exam Constitutional: frail, other (lethargic ) Respiratory: diminished breath sounds, other (trach leak and on Vent ) Cardiovascular: nl pulses, regular rate and rhythm Gastrointestinal: non-tender, other (G tube in place and tolerating TF ), soft Musculoskeletal: other (muscle wasting ) Extremities: edema (+1 anasarca), normal pulses, other (no clubbing or cyanosis ) 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, lethargic, other (quadriparesis ) Results Result Diagram: 12/29/16 0500 12/29/16 0500 Results 24 hrs Laboratory Tests Test 12/29/16 05:00 White Blood Count 12.1 #H Red Blood Count 2.80 L Hemoglobin 7.7 L Hematocrit 26.8 L Mean Corpuscular Volume 95.7 Mean Corpuscular Hemoglobin 27.5 L Mean Corpuscular Hemoglobin Concent 28.7 L Red Cell Distribution Width 18.1 H Platelet Count 126 L Mean Platelet Volume 11.9 H Neutrophils % 82.0 H Lymphocytes % 6.6 L Monocytes % 5.4 Eosinophils % 5.3 Basophils % 0.2 Nucleated Red Blood Cells % 0.0 Neutrophils # 9.9 H Lymphocytes # 0.8 Monocytes # 0.7 Eosinophils # 0.6 H Basophils # 0.0 Nucleated Red Blood Cells # 0.0 Sodium Level 142 Potassium Level 4.2 Chloride Level 101 Carbon Dioxide Level 34 H Anion Gap 11 Blood Urea Nitrogen 68 H Creatinine 0.89 Glucose Level 117 Calcium Level 11.4 H Phosphorus Level 3.5 Magnesium Level 2.7 H Medications Medications Current Medications Acetaminophen (Tylenol Tab) 650 mg Q6H PRN PEG PAIN LEVEL 1-3 OR FEVER Last administered on 12/27/16 09:47; Admin Dose 650 MG; Start 11/30/16 at 05:00 Morphine Sulfate (morphine) 2 mg Q4H PRN IV PAIN LEVEL 7-10 Last administered on 12/18/16 09:14; Admin Dose 2 MG; Start 11/30/16 at 05:00 Miscellaneous Information 1 ea NOTE XX ; Start 11/30/16 at 05:00 Glucose (Glutose) 15 gm Q15M PRN PO DECREASED GLUCOSE; Start 11/30/16 at 05:00 Glucose (Glutose) 22.5 gm Q15M PRN PO DECREASED GLUCOSE; Start 11/30/16 at 05: 00 Dextrose (D50w Syringe) 25 ml Q15M PRN IV DECREASED GLUCOSE; Start 11/30/16 at 05:00 Dextrose (D50w Syringe) 50 ml Q15M PRN IV DECREASED GLUCOSE; Start 11/30/16 at 05:00 Glucagon (Glucagen) 1 mg Q15M PRN IM DECREASED GLUCOSE; Start 11/30/16 at 05:00 Glucose (Glutose) 15 gm Q15M PRN BUCCAL DECREASED GLUCOSE; Start 11/30/16 at 05 :00 Metoprolol Tartrate (Lopressor) 2.5 mg Q2H PRN IV heart rate over 110 Last administered on 12/17/16 06:57; Admin Dose 2.5 MG; Start 12/01/16 at 12:00 Collagenase (Santyl) 1 applic DAILY TOP Last administered on 12/27/16 09:49; Admin Dose 1 APPLIC; Start 12/02/16 at 12:00 Collagenase (Santyl) 1 applic DAILY PRN TOP PER WOUND CARE ORDERS; Start at 11:30 Metoprolol Tartrate (Lopressor) 50 mg BID GTB Last administered on 12/29/16 08 :23; Admin Dose 50 MG; Start 12/04/16 at 21:00 Famotidine (Pepcid) 20 mg DAILY GTB Last administered on 12/29/16 08:22; Admin Dose 20 MG; Start 12/05/16 at 09:00 Losartan Potassium (Cozaar) 25 mg BID PO Last administered on 12/28/16 21:14; Admin Dose 25 MG; Start 12/05/16 at 21:00 Hydralazine HCl (Apresoline) 10 mg Q6H PRN IV ELEVATED BLOOD PRESSURE Last administered on 12/13/16 18:26; Admin Dose 10 MG; Start 12/06/16 at 16:00 Amikacin Sulfate (Amikacin Iv Per Pharmacy) AMIKACIN PER PHARMACY NOTE XX ; Start 12/10/16 at 19:00 Ketoconazole (Nizoral Shampoo) 1 applic Q12 TOP Last administered on 12/29/16 08:24; Admin Dose 1 APPLIC; Start 12/14/16 at 21:00 Ketoconazole 1 applic 1 applic BID TOP Last administered on 12/29/16 08:24; Admin Dose 1 APPLIC; Start 12/14/16 at 21:00 Amikacin Sulfate/ Sodium Chloride (Amikacin/NS) 150 ml @ 150 mls/hr Q72H IVPB Last administered on 12/27/16 02:12; Admin Dose 150 MLS/HR; Start 12/21/16 at 00 :00; Status Future Hold Fluconazole 100 mg 100 mg DAILY PO Last administered on 12/29/16 08:23; Admin Dose 100 MG; Start 12/20/16 at 13:30 Vancomycin HCl 750 mg/Sodium Chloride 150 ml @ 75 mls/hr Q36H IVPB Last administered on 12/28/16 06:12; Admin Dose 75 MLS/HR; Start 12/28/16 at 06:00 Ceftazidime (Fortaz 1gm/50 ml (Pmx)) 50 ml @ 100 mls/hr Q8 IVPB ; Start at 14:00 CHARLETTE RUTHERFORD December 29, 2016 10:44
[2016-12-29] MEDS: CEFTAZIDIME 1GM/50 ML (PMX) 50 ML IVPB SCH ×2 (14:07→21:37)
--- NOTE | 2016-12-29 14:59 | CONS ---
Date/Time of Note Date/Time of Note DATE: 12/29/16 TIME: 14:57 Consult Date/Type/Reason Admit Date/Time Nov 30, 2016 at 04:54 Initial Consult Date 12/01/16 Type of Consultation: Pulm Ordering Provider: CHARLETTE RUTHERFORD Subjective Trach leak noted. Discussed with RT. Now with trach change exhaled volumes equal delivered. Objective Vital Signs Date Time Temp Pulse Resp B/P Pulse Ox O2 Delivery O2 Flow Rate FiO2 12/29/16 12:22 83 12/29/16 11:38 14 98 45 12/29/16 11:12 98.7 125/88 Intake and Output 12/28/16 12/28/16 12/29/16 15:00 23:00 07:00 Intake Total 75 ml 1020 ml 906 ml Output Total 1000 ml 600 ml Balance 75 ml 20 ml 306 ml Exam CARDIAC: S1, S2, 1/6 systolic ejection murmur CHEST: Coarse BS bilaterally ABDOMEN: Mildly distended. Bowel sounds present no guarding or rebound EXTREMITIES: No cyanosis, clubbing edema +1 Results/Medications Result Diagram: 12/29/16 0500 12/29/16 0500 Results 24 hrs Laboratory Tests Test 12/29/16 05:00 White Blood Count 12.1 #H Red Blood Count 2.80 L Hemoglobin 7.7 L Hematocrit 26.8 L Mean Corpuscular Volume 95.7 Mean Corpuscular Hemoglobin 27.5 L Mean Corpuscular Hemoglobin Concent 28.7 L Red Cell Distribution Width 18.1 H Platelet Count 126 L Mean Platelet Volume 11.9 H Neutrophils % 82.0 H Lymphocytes % 6.6 L Monocytes % 5.4 Eosinophils % 5.3 Basophils % 0.2 Nucleated Red Blood Cells % 0.0 Neutrophils # 9.9 H Lymphocytes # 0.8 Monocytes # 0.7 Eosinophils # 0.6 H Basophils # 0.0 Nucleated Red Blood Cells # 0.0 Sodium Level 142 Potassium Level 4.2 Chloride Level 101 Carbon Dioxide Level 34 H Anion Gap 11 Blood Urea Nitrogen 68 H Creatinine 0.89 Glucose Level 117 Calcium Level 11.4 H Phosphorus Level 3.5 Magnesium Level 2.7 H Medications Current Medications Acetaminophen (Tylenol Tab) 650 mg Q6H PRN PEG PAIN LEVEL 1-3 OR FEVER Last administered on 12/27/16t 09:47; Admin Dose 650 MG; Start 11/30/16 at 05:00 Morphine Sulfate (morphine) 2 mg Q4H PRN IV PAIN LEVEL 7-10 Last administered on 12/18/16 09:14; Admin Dose 2 MG; Start 11/30/16 at 05:00 Miscellaneous Information 1 ea NOTE XX ; Start 11/30/16 at 05:00 Glucose (Glutose) 15 gm Q15M PRN PO DECREASED GLUCOSE; Start 11/30/16 at 05:00 Glucose (Glutose) 22.5 gm Q15M PRN PO DECREASED GLUCOSE; Start 11/30/16 at 05: 00 Dextrose (D50w Syringe) 25 ml Q15M PRN IV DECREASED GLUCOSE; Start 11/30/16 at 05:00 Dextrose (D50w Syringe) 50 ml Q15M PRN IV DECREASED GLUCOSE; Start 11/30/16 at 05:00 Glucagon (Glucagen) 1 mg Q15M PRN IM DECREASED GLUCOSE; Start 11/30/16 at 05:00 Glucose (Glutose) 15 gm Q15M PRN BUCCAL DECREASED GLUCOSE; Start 11/30/16 at 05 :00 Metoprolol Tartrate (Lopressor) 2.5 mg Q2H PRN IV heart rate over 110 Last administered on 12/17/16 06:57; Admin Dose 2.5 MG; Start 12/01/16 at 12:00 Collagenase (Santyl) 1 applic DAILY TOP Last administered on 12/29/16 14:08; Admin Dose 1 APPLIC; Start 12/02/16 at 12:00 Collagenase (Santyl) 1 applic DAILY PRN TOP PER WOUND CARE ORDERS; Start at 11:30 Metoprolol Tartrate (Lopressor) 50 mg BID GTB Last administered on 12/29/16 08 :23; Admin Dose 50 MG; Start 12/04/16 at 21:00 Famotidine (Pepcid) 20 mg DAILY GTB Last administered on 12/29/16 08:22; Admin Dose 20 MG; Start 12/05/16 at 09:00 Losartan Potassium (Cozaar) 25 mg BID PO Last administered on 12/28/16 21:14; Admin Dose 25 MG; Start 12/05/16 at 21:00 Hydralazine HCl (Apresoline) 10 mg Q6H PRN IV ELEVATED BLOOD PRESSURE Last administered on 12/13/16 18:26; Admin Dose 10 MG; Start 12/06/16 at 16:00 Amikacin Sulfate (Amikacin Iv Per Pharmacy) AMIKACIN PER PHARMACY NOTE XX ; Start 12/10/16 at 19:00 Ketoconazole (Nizoral Shampoo) 1 applic Q12 TOP Last administered on 12/29/16 08:24; Admin Dose 1 APPLIC; Start 12/14/16 at 21:00 Ketoconazole 1 applic 1 applic BID TOP Last administered on 12/29/16 08:24; Admin Dose 1 APPLIC; Start 12/14/16 at 21:00 Amikacin Sulfate/ Sodium Chloride (Amikacin/NS) 150 ml @ 150 mls/hr Q72H IVPB Last administered on 12/27/16 02:12; Admin Dose 150 MLS/HR; Start 12/21/16 at 00 :00; Status Future Hold Fluconazole 100 mg 100 mg DAILY PO Last administered on 12/29/16 08:23; Admin Dose 100 MG; Start 12/20/16 at 13:30 Vancomycin HCl 750 mg/Sodium Chloride 150 ml @ 75 mls/hr Q36H IVPB Last administered on 12/28/16 06:12; Admin Dose 75 MLS/HR; Start 12/28/16 at 06:00 Ceftazidime (Fortaz 1gm/50 ml (Pmx)) 50 ml @ 100 mls/hr Q8 IVPB Last administered on 12/29/16 14:07; Admin Dose 100 MLS/HR; Start 12/29/16 at 14:00 Assessment/Plan Additional Assessment/Plan IMP: 1. Acute on chronic hypoxemic respiratory failure on mechanical ventilation via tracheostomy. 2. 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 Trach leak--s/p change of trach with no further leak 4. Anemia of chronic disease 5. History of CVA 6. Dysphagia with G-tube RECS: 1. Continue vent support 2. Abx per ID 3. Consult ENT if leak continues 4. Patient not a suitable candidate for any surgical intervention in case of RLL pulm gangrene 5. DVT GI prophylaxis ARTIS BRUNO MD December 29, 2016 14:58
--- NOTE | 2016-12-29 16:01 | CONS ---
Date/Time of Note Date/Time of Note DATE: 12/29/16 TIME: 16:00 Assessment/Plan Assessment/Plan Chief Complaint/Hosp Course SUBJECTIVE: No events overnight. No fevers. The patient is lethargic, lying comfortably in bed. INDWELLINGS: Trach, PEG, Cherry, PICC line. ANTIMICROBIALS: 1. Amikacin. 2. Fortaz. 3. Vancomycin. 4. Diflucan PHYSICAL EXAMINATION: GENERAL: This is well-developed, fragile, elderly man who is in no distress. HEENT: Head atraumatic, normocephalic. Sclerae anicteric. Buccal mucosa dry. NECK: Supple. Tracheostomy present. CHEST: Rise symmetrical. Breath sounds clear, diminished to bases. HEART: S1, S2. ABDOMEN: Soft, bowel sounds present. EXTREMITIES: No cyanosis. ASSESSMENT: 1. Sepsis with persistent leukocytosis 2 to #2. 2. Healthcare-associated pneumonia with sputum culture growing Pseudomonas aeruginosa and Providencia stuartii. 3. Sacral decubitus ulcer, improving. 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 5. Hypertension. 6. Dysphagia. PLAN: Clinically unchanged, wbc decreased this am, continue abx, f/u repeat sputum cx, pulmonary rec-s DW staff Problems: Consultation Date/Type/Reason Admit Date/Time Nov 30, 2016 at 04:54 Initial Consult Date 12/01/16 Type of Consultation: ID Referring Provider: CHARLETTE RUTHERFORD Exam/Review of Systems Vital Signs Vitals Vital Signs Date Time Temp Pulse Resp B/P Pulse Ox O2 Delivery O2 Flow Rate FiO2 12/29/16 15:18 98.4 78 16 110/65 100 12/29/16 13:56 45 Intake and Output 12/28/16 12/28/16 12/29/16 15:00 23:00 07:00 Intake Total 75 ml 1020 ml 906 ml Output Total 1000 ml 600 ml Balance 75 ml 20 ml 306 ml Results Result Diagram: 12/29/16 0500 12/29/16 0500 Results 24 hrs Laboratory Tests Test 12/29/16 05:00 White Blood Count 12.1 #H Red Blood Count 2.80 L Hemoglobin 7.7 L Hematocrit 26.8 L Mean Corpuscular Volume 95.7 Mean Corpuscular Hemoglobin 27.5 L Mean Corpuscular Hemoglobin Concent 28.7 L Red Cell Distribution Width 18.1 H Platelet Count 126 L Mean Platelet Volume 11.9 H Neutrophils % 82.0 H Lymphocytes % 6.6 L Monocytes % 5.4 Eosinophils % 5.3 Basophils % 0.2 Nucleated Red Blood Cells % 0.0 Neutrophils # 9.9 H Lymphocytes # 0.8 Monocytes # 0.7 Eosinophils # 0.6 H Basophils # 0.0 Nucleated Red Blood Cells # 0.0 Sodium Level 142 Potassium Level 4.2 Chloride Level 101 Carbon Dioxide Level 34 H Anion Gap 11 Blood Urea Nitrogen 68 H Creatinine 0.89 Glucose Level 117 Calcium Level 11.4 H Phosphorus Level 3.5 Magnesium Level 2.7 H Medications Medications Current Medications Acetaminophen (Tylenol Tab) 650 mg Q6H PRN PEG PAIN LEVEL 1-3 OR FEVER Last administered on 12/27/16 09:47; Admin Dose 650 MG; Start 11/30/16 at 05:00 Morphine Sulfate (morphine) 2 mg Q4H PRN IV PAIN LEVEL 7-10 Last administered on 12/18/16 09:14; Admin Dose 2 MG; Start 11/30/16 at 05:00 Miscellaneous Information 1 ea NOTE XX ; Start 11/30/16 at 05:00 Glucose (Glutose) 15 gm Q15M PRN PO DECREASED GLUCOSE; Start 11/30/16 at 05:00 Glucose (Glutose) 22.5 gm Q15M PRN PO DECREASED GLUCOSE; Start 11/30/16 at 05: 00 Dextrose (D50w Syringe) 25 ml Q15M PRN IV DECREASED GLUCOSE; Start 11/30/16 at 05:00 Dextrose (D50w Syringe) 50 ml Q15M PRN IV DECREASED GLUCOSE; Start 11/30/16 at 05:00 Glucagon (Glucagen) 1 mg Q15M PRN IM DECREASED GLUCOSE; Start 11/30/16 at 05:00 Glucose (Glutose) 15 gm Q15M PRN BUCCAL DECREASED GLUCOSE; Start 11/30/16 at 05 :00 Metoprolol Tartrate (Lopressor) 2.5 mg Q2H PRN IV heart rate over 110 Last administered on 12/17/16 06:57; Admin Dose 2.5 MG; Start 12/01/16 at 12:00 Collagenase (Santyl) 1 applic DAILY TOP Last administered on 12/29/16 14:08; Admin Dose 1 APPLIC; Start 12/02/16 at 12:00 Collagenase (Santyl) 1 applic DAILY PRN TOP PER WOUND CARE ORDERS; Start at 11:30 Metoprolol Tartrate (Lopressor) 50 mg BID GTB Last administered on 12/29/16 08 :23; Admin Dose 50 MG; Start 12/04/16 at 21:00 Famotidine (Pepcid) 20 mg DAILY GTB Last administered on 12/29/16 08:22; Admin Dose 20 MG; Start 12/05/16 at 09:00 Losartan Potassium (Cozaar) 25 mg BID PO Last administered on 12/28/16 21:14; Admin Dose 25 MG; Start 12/05/16 at 21:00 Hydralazine HCl (Apresoline) 10 mg Q6H PRN IV ELEVATED BLOOD PRESSURE Last administered on 12/13/16 18:26; Admin Dose 10 MG; Start 12/06/16 at 16:00 Amikacin Sulfate (Amikacin Iv Per Pharmacy) AMIKACIN PER PHARMACY NOTE XX ; Start 12/10/16 at 19:00 Ketoconazole (Nizoral Shampoo) 1 applic Q12 TOP Last administered on 12/29/16 08:24; Admin Dose 1 APPLIC; Start 12/14/16 at 21:00 Ketoconazole 1 applic 1 applic BID TOP Last administered on 12/29/16 08:24; Admin Dose 1 APPLIC; Start 12/14/16 at 21:00 Amikacin Sulfate/ Sodium Chloride (Amikacin/NS) 150 ml @ 150 mls/hr Q72H IVPB Last administered on 12/27/16 02:12; Admin Dose 150 MLS/HR; Start 12/21/16 at 00 :00; Status Future Hold Fluconazole 100 mg 100 mg DAILY PO Last administered on 12/29/16 08:23; Admin Dose 100 MG; Start 12/20/16 at 13:30 Vancomycin HCl 750 mg/Sodium Chloride 150 ml @ 75 mls/hr Q36H IVPB Last administered on 12/28/16 06:12; Admin Dose 75 MLS/HR; Start 12/28/16 at 06:00 Ceftazidime (Fortaz 1gm/50 ml (Pmx)) 50 ml @ 100 mls/hr Q8 IVPB Last administered on 5/14/17at 14:07; Admin Dose 100 MLS/HR; Start 12/29/16 at 14:00 ELI VALDEZ NP December 29, 2016 16:01
[2016-12-29] MEDS: VANCOMYCIN 750 MG in SOD CHLORIDE 0.9% 150 ML IVPB SCH (17:43)
--- NOTE | 2016-12-29 23:04 | CONS ---
DATE OF ADMISSION: 11/30/2016 DATE OF CONSULTATION: REASON FOR CONSULTATION: Tracheostomy leak. HISTORY OF PRESENT ILLNESS: The patient is an 81-year-old male with chronic ventilatory dependency and respiratory failure who was admitted for pneumonia. The patient is DNR and lives in a nursing [facility]. PAST MEDICAL HISTORY: Coronary artery disease, diabetes, hypercholesterolemia. FAMILY HISTORY: Noncontributory. SOCIAL HISTORY: Grew up in the [facility]. Stopped smoking 25 years ago. REVIEW OF SYSTEMS: Not obtainable. PHYSICAL EXAMINATION: GENERAL: The patient is not alert or oriented. He responds to pain stimuli. NECK: There is a #[address] with a large leak noted by evidence of air coming ou t through the patient's mouth. I removed the tracheostomy tube and placed a 9.0 tube with less of a leak, however, still a leak. I was considering putting in XLT tube; however, none was available in the hospital. ASSESSMENT: The patient is an 81-year-old male with a leak around his tracheostomy tube. The likel y scenarios are a large/wide diameter trachea requiring a #10, tracheostomy tube or an extended karena th tube to find a more narrow aspect of the trachea lower down; less likely is the presence of a tra cheoesophageal fistula. However, given his DNR status if he had that, we would not proceed with rep air. Final recommendation would be to try an XLT tube if the current #9 tube does not function prop erly. Dictated By: JANETH DIANA MD, [facility]/MENDOZA Conf#: [id number] DID#: [id number] CC: NEGRITO PEREZ MD;*EndCC*
[2016-12-30] VITALS (24 sets, daily range): BP systolic 96–128; BP diastolic 54–77; PULSE 70–90; RESP 14–20
[2016-12-30] MEDS: LEVALBUTEROL (HFA) 15 GM INHALER INH SCH ×4 (02:02→23:10)
[2016-12-30] MEDS: IPRATROPIUM (HFA) 12.9 GM INHALER INH SCH ×4 (02:02→23:10)
[2016-12-30] MEDS: CEFTAZIDIME 1GM/50 ML (PMX) 50 ML IVPB SCH ×3 (05:41→21:53)
--- NOTE | 2016-12-30 08:15 | RADRPT ---
PROCEDURE: XR Chest. CLINICAL INDICATION: Shortness of breath. TECHNIQUE: Single frontal view. COMPARISON: 12/16/2016. FINDINGS: The tracheostomy tube and left arm PICC line remain in satisfactory position. There is patchy pulmo nary air space disease throughout the right mid and lower lung zones and in the left lung base, unch anged. The heart size is normal. There is calcification in the aorta consistent with atherosclerosis. There is no pleural effusion. There is no pneumothorax. IMPRESSION: 1. No change from 12/16/2016. RPTAT: QQ .Dayday Castañeda MD, MD Date Time Electronically viewed and signed by .Dayday Castañeda MD, MD on 12/30/2016 08:15 .R/
[2016-12-30] MEDS: METOPROLOL 25 MG TAB GTB SCH ×2 (09:00→21:55)
[2016-12-30] MEDS: LOSARTAN 25 MG TAB PO SCH ×2 (09:00→21:54)
[2016-12-30] MEDS: FAMOTIDINE 20 MG TAB GTB SCH (09:20)
[2016-12-30] MEDS: FLUCONAZOLE 100 MG TAB PO SCH (09:20)
[2016-12-30] MEDS: KETOCONAZOLE 2% 15 GM CR TOP SCH ×2 (09:21→21:56)
[2016-12-30] MEDS: KETOCONAZOLE 2% SHAMPOO 120 ML BTL TOP SCH ×2 (09:21→21:56)
[2016-12-30] MEDS: COLLAGENASE 30 GM TUBE TOP SCH (09:22)
--- NOTE | 2016-12-30 12:24 | PN ---
Date/Time of Note Date/Time of Note DATE: 12/30/16 TIME: 12:00 Assessment/Plan VTE Prophylaxis VTE Prophylaxis Intervention: SCD's Lines/Catheters IV Catheter Type (from Nrsg): PICC Line Central line still needed: Yes (for IV access ) Urinary Cath still in place: Yes Reason Cath still needed: other (indicate) (monitor UOP ) Assessment/Plan Assessment/Plan 81 yo man with: 1. Sepsis, Bilateral Pneumonia, HCAP vs VAP, CT chest and also confirmed on WBC scan with severe bilateral PNA. Sputum cx polymicrobial with MDRO pseudomonas and Providencia. Patient requiring at least Q3 to 4hrs suctioning for now with copious amount of secretions but a little less. Patient on quadruple abx with Diflucan po, Amikacin, Vancomycin and Fortaz No other source identified on WBC scan besides PNA bilateral R>L Appreciate ID recs, WBC down to 12K yesterday, awaiting labs today. CT chest 12/26 still with unchanged finding of R>>L multifocal PNA with dense infiltrates. CXR unchanged today Discussed with Pulmonary and ? plan for Bronch with BAL RML ? RML gangrene per Pulmonary ... if so not candidate for surgical intervention... 2. Chronic vent-dependent respiratory failure, stable on Vent, oxygenating well on FiO2 45% currently. With also extensive b/l PNA, large amount of secretions Continue Vancomycin, Ceftazidime, Diflucan and Amikacin. Appreciate Pulmonary and ID recommendations, leaking trach to be changed 3. Hypokalemia/Hypomagnesemia: BMP pending . 4. Severe anemia on admission, possible GI bleeding, but if so resolved now. Continue PPI. CBC pending Transfuse for Hb<7.5 hb, stable so far close to 8.0 No evidence for active bleeding for now. Back on Iron supplement. 5. Elevated troponins in setting of a fib with RVR and sepsis, CAD In SR currently and HR controlled with Bblocker, up to 50 mg po bid. Cardiology prn. No anticoag due to Anemia 6. MRSA nares: Bactroban, on Vancomycin 7. Sacral Decub, seems to be healing well per RN and wound care but cx polymicrobial with MDRO. Abx adjusted by ID and on wound care protocol. 8. Hypertension: Continue Metoprolol at 50 mg po bid and Losartan added as BP tolerating. Prophylaxis: Continue SCDs and Famotidine. Disposition: On contact isolation and Telemetry. WBC scan confirming PNA as only current source of active infection, per ID continue current abx and aggressive pulmonary toilet. Possible need for bronchoscopy with RML BAL Friday. Labs pending Plan for d/c back to Subacute but may need LTAC soon if WBC trending down and stable. Prognosis remains poor to fair at best. Patient is DNR Subjective 24 Hr Interval Summary Free Text/Dictation Patient remains unchanged Labs pending ? Bronch per Pulmonary S/p Trach change last night due to ongoing leak Exam/Review of Systems Vital Signs Vitals Vital Signs Date Time Temp Pulse Resp B/P Pulse Ox O2 Delivery O2 Flow Rate FiO2 12/30/16 11:28 98.4 80 20 114/65 96 12/30/16 11:00 50 Intake and Output 12/29/16 12/29/16 12/30/16 15:00 23:00 07:00 Intake Total 50 ml 970 ml 920 ml Output Total 600 ml 350 ml Balance 50 ml 370 ml 570 ml Exam Constitutional: frail, non-verbal, other (lethargic ) Respiratory: diminished breath sounds (bilaterally ), other (on Vent ) Cardiovascular: nl pulses, regular rate and rhythm Gastrointestinal: non-tender, other (tolerating TF so far ), soft Musculoskeletal: other (muscle wasting ) Extremities: normal pulses, other (+1 anasarca much improved ) Neurological: [employer] II-XII intact, lethargic, other (quadriparesis ) Results Result Diagram: 12/29/16 0500 12/29/16 0500 Medications Medications Current Medications Acetaminophen (Tylenol Tab) 650 mg Q6H PRN PEG PAIN LEVEL 1-3 OR FEVER Last administered on 12/27/16 09:47; Admin Dose 650 MG; Start 11/30/16 at 05:00 Morphine Sulfate (morphine) 2 mg Q4H PRN IV PAIN LEVEL 7-10 Last administered on 12/18/16 09:14; Admin Dose 2 MG; Start 11/30/16 at 05:00 Miscellaneous Information 1 ea NOTE XX ; Start 11/30/16 at 05:00 Glucose (Glutose) 15 gm Q15M PRN PO DECREASED GLUCOSE; Start 11/30/16 at 05:00 Glucose (Glutose) 22.5 gm Q15M PRN PO DECREASED GLUCOSE; Start 11/30/16 at 05: 00 Dextrose (D50w Syringe) 25 ml Q15M PRN IV DECREASED GLUCOSE; Start 11/30/16 at 05:00 Dextrose (D50w Syringe) 50 ml Q15M PRN IV DECREASED GLUCOSE; Start 11/30/16 at 05:00 Glucagon (Glucagen) 1 mg Q15M PRN IM DECREASED GLUCOSE; Start 11/30/16 at 05:00 Glucose (Glutose) 15 gm Q15M PRN BUCCAL DECREASED GLUCOSE; Start 11/30/16 at 05 :00 Metoprolol Tartrate (Lopressor) 2.5 mg Q2H PRN IV heart rate over 110 Last administered on 12/17/16 06:57; Admin Dose 2.5 MG; Start 12/01/16 at 12:00 Collagenase (Santyl) 1 applic DAILY TOP Last administered on 12/30/16 09:22; Admin Dose 1 APPLIC; Start 12/02/16 at 12:00 Collagenase (Santyl) 1 applic DAILY PRN TOP PER WOUND CARE ORDERS; Start at 11:30 Metoprolol Tartrate (Lopressor) 50 mg BID GTB Last administered on 12/29/16 21 :36; Admin Dose 50 MG; Start 12/04/16 at 21:00 Famotidine (Pepcid) 20 mg DAILY GTB Last administered on 12/30/16 09:20; Admin Dose 20 MG; Start 12/05/16 at 09:00 Losartan Potassium (Cozaar) 25 mg BID PO Last administered on 12/29/16 21:34; Admin Dose 25 MG; Start 12/05/16 at 21:00 Hydralazine HCl (Apresoline) 10 mg Q6H PRN IV ELEVATED BLOOD PRESSURE Last administered on 12/13/16 18:26; Admin Dose 10 MG; Start 12/06/16 at 16:00 Amikacin Sulfate (Amikacin Iv Per Pharmacy) AMIKACIN PER PHARMACY NOTE XX ; Start 12/10/16 at 19:00 Ketoconazole (Nizoral Shampoo) 1 applic Q12 TOP Last administered on 12/30/16 09:21; Admin Dose 1 APPLIC; Start 12/14/16 at 21:00 Ketoconazole 1 applic 1 applic BID TOP Last administered on 12/30/16 09:21; Admin Dose 1 APPLIC; Start 12/14/16 at 21:00 Amikacin Sulfate/ Sodium Chloride (Amikacin/NS) 150 ml @ 150 mls/hr Q72H IVPB Last administered on 12/27/16 02:12; Admin Dose 150 MLS/HR; Start 12/21/16 at 00 :00; Status Future Hold Fluconazole 100 mg 100 mg DAILY PO Last administered on 12/30/16 09:20; Admin Dose 100 MG; Start 12/20/16 at 13:30 Vancomycin HCl 750 mg/Sodium Chloride 150 ml @ 75 mls/hr Q36H IVPB Last administered on 12/29/16 17:43; Admin Dose 75 MLS/HR; Start 12/28/16 at 06:00 Ceftazidime (Fortaz 1gm/50 ml (Pmx)) 50 ml @ 100 mls/hr Q8 IVPB Last administered on 12/30/16 05:41; Admin Dose 100 MLS/HR; Start 12/29/16 at 14:00 CHARLETTE RUTHERFORD December 30, 2016 12:10
[2016-12-30 12:26] LABS: ADD SCAN DIFF NO
[2016-12-30 12:30] LABS: ABNORMAL IP MESSAGE 1; BASOPHILS % 0.1 % (0.0-2.0); EOSINOPHILS # 0.6 10^3/ul (0.0-0.5); EOSINOPHILS % 4.3 % (0.0-7.0); HEMATOCRIT 26.8 % (42.0-52.0); HEMOGLOBIN 7.6 g/dl (14.0-18.0); LYMPHOCYTES # 0.8 10^3/ul (0.8-2.9); LYMPHOCYTES % 5.3 % (15.0-51.0); MEAN CORPUSCULAR HEMOGLOBIN 27.8 pg (29.0-33.0); MEAN CORPUSCULAR HGB CONC 28.4 g/dl (32.0-37.0); MEAN CORPUSCULAR VOLUME 98.2 fl (82.0-101.0); MEAN PLATELET VOLUME 10.9 fl (7.4-10.4); MONOCYTE # 0.7 10^3/ul (0.3-0.9); MONOCYTES % 4.9 % (0.0-11.0); NEUTROPHIL # 12.3 10^3/ul (1.6-7.5); NEUTROPHILS % 84.8 % (39.0-77.0); PLATELET COUNT 111 10^3/UL (140-415); RED BLOOD COUNT 2.73 10^6/ul (4.70-6.10); WHITE BLOOD COUNT 14.5 10^3/ul (4.8-10.8)
[2016-12-30 12:47] LABS: POTASSIUM 4.4 mmol/L (3.5-5.1)
[2016-12-30 12:50] LABS: CREATININE 1.13 mg/dl (0.61-1.24)
[2016-12-30 12:51] LABS: CALCIUM 11.3 mg/dl (8.4-10.2); MAGNESIUM 2.7 mg/dl (1.7-2.5); PHOSPHORUS 4.7 mg/dl (2.5-4.9)
--- NOTE | 2016-12-30 13:42 | CONS ---
Date/Time of Note Date/Time of Note DATE: 12/30/16 TIME: 13:40 Assessment/Plan Assessment/Plan Chief Complaint/Hosp Course SUBJECTIVE: No events overnight. No fevers. The patient is lethargic, lying comfortably in bed. INDWELLINGS: Trach, PEG, Cherry, PICC line. ANTIMICROBIALS: 1. Amikacin. 2. Fortaz. 3. Vancomycin. 4. Diflucan PHYSICAL EXAMINATION: GENERAL: This is well-developed, fragile, elderly man who is in no distress. HEENT: Head atraumatic, normocephalic. Sclerae anicteric. Buccal mucosa dry. NECK: Supple. Tracheostomy present. CHEST: Rise symmetrical. Breath sounds clear, diminished to bases. HEART: S1, S2. ABDOMEN: Soft, bowel sounds present. EXTREMITIES: No cyanosis. ASSESSMENT: 1. Sepsis with persistent leukocytosis 2 to #2. 2. Healthcare-associated pneumonia with sputum culture growing Pseudomonas aeruginosa and Providencia stuartii. 3. Sacral decubitus ulcer, improving. 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 5. Hypertension. 6. Dysphagia. PLAN: Clinically unchanged, with worsening renal f-n, repeat sputum cx + GNR, will dc Vanco, continue other abx, f/u cxr/ pulmonary rec-s [facility] staff Problems: Consultation Date/Type/Reason Admit Date/Time Nov 30, 2016 at 04:54 Initial Consult Date 12/01/16 Type of Consultation: ID Referring Provider: CHARLETTE RUTHERFORD Exam/Review of Systems Vital Signs Vitals Vital Signs Date Time Temp Pulse Resp B/P Pulse Ox O2 Delivery O2 Flow Rate FiO2 12/30/16 13:08 81 12/30/16 11:28 98.4 20 114/65 96 12/30/16 11:00 50 Intake and Output 12/29/16 12/29/16 12/30/16 15:00 23:00 07:00 Intake Total 50 ml 970 ml 920 ml Output Total 600 ml 350 ml Balance 50 ml 370 ml 570 ml Results Result Diagram: 12/30/16 1215 12/30/16 1215 Results 24 hrs Laboratory Tests Test 12/30/16 12:15 White Blood Count 14.5 H Red Blood Count 2.73 L Hemoglobin 7.6 L Hematocrit 26.8 L Mean Corpuscular Volume 98.2 Mean Corpuscular Hemoglobin 27.8 L Mean Corpuscular Hemoglobin Concent 28.4 L Red Cell Distribution Width 18.0 H Platelet Count 111 L Mean Platelet Volume 10.9 H Neutrophils % 84.8 H Lymphocytes % 5.3 L Monocytes % 4.9 Eosinophils % 4.3 Basophils % 0.1 Nucleated Red Blood Cells % 0.0 Neutrophils # 12.3 H Lymphocytes # 0.8 Monocytes # 0.7 Eosinophils # 0.6 H Basophils # 0.0 Nucleated Red Blood Cells # 0.0 Sodium Level 142 Potassium Level 4.4 Chloride Level 99 Carbon Dioxide Level 34 H Anion Gap 13 Blood Urea Nitrogen 80 H Creatinine 1.13 Glucose Level 127 Calcium Level 11.3 H Phosphorus Level 4.7 Magnesium Level 2.7 H Medications Medications Current Medications Acetaminophen (Tylenol Tab) 650 mg Q6H PRN PEG PAIN LEVEL 1-3 OR FEVER Last administered on 12/27/16 09:47; Admin Dose 650 MG; Start 11/30/16 at 05:00 Morphine Sulfate (morphine) 2 mg Q4H PRN IV PAIN LEVEL 7-10 Last administered on 12/18/16 09:14; Admin Dose 2 MG; Start 11/30/16 at 05:00 Miscellaneous Information 1 ea NOTE XX ; Start 11/30/16 at 05:00 Glucose (Glutose) 15 gm Q15M PRN PO DECREASED GLUCOSE; Start 11/30/16 at 05:00 Glucose (Glutose) 22.5 gm Q15M PRN PO DECREASED GLUCOSE; Start 11/30/16 at 05: 00 Dextrose (D50w Syringe) 25 ml Q15M PRN IV DECREASED GLUCOSE; Start 11/30/16 at 05:00 Dextrose (D50w Syringe) 50 ml Q15M PRN IV DECREASED GLUCOSE; Start 11/30/16 at 05:00 Glucagon (Glucagen) 1 mg Q15M PRN IM DECREASED GLUCOSE; Start 11/30/16 at 05:00 Glucose (Glutose) 15 gm Q15M PRN BUCCAL DECREASED GLUCOSE; Start 11/30/16 at 05 :00 Metoprolol Tartrate (Lopressor) 2.5 mg Q2H PRN IV heart rate over 110 Last administered on 12/17/16 06:57; Admin Dose 2.5 MG; Start 12/01/16 at 12:00 Collagenase (Santyl) 1 applic DAILY TOP Last administered on 12/30/16 09:22; Admin Dose 1 APPLIC; Start 12/02/16 at 12:00 Collagenase (Santyl) 1 applic DAILY PRN TOP PER WOUND CARE ORDERS; Start at 11:30 Metoprolol Tartrate (Lopressor) 50 mg BID GTB Last administered on 12/29/16 21 :36; Admin Dose 50 MG; Start 12/04/16 at 21:00 Famotidine (Pepcid) 20 mg DAILY GTB Last administered on 12/30/16 09:20; Admin Dose 20 MG; Start 12/05/16 at 09:00 Losartan Potassium (Cozaar) 25 mg BID PO Last administered on 12/29/16 21:34; Admin Dose 25 MG; Start 12/05/16 at 21:00 Hydralazine HCl (Apresoline) 10 mg Q6H PRN IV ELEVATED BLOOD PRESSURE Last administered on 12/13/16 18:26; Admin Dose 10 MG; Start 12/06/16 at 16:00 Amikacin Sulfate (Amikacin Iv Per Pharmacy) AMIKACIN PER PHARMACY NOTE XX ; Start 12/10/16 at 19:00 Ketoconazole (Nizoral Shampoo) 1 applic Q12 TOP Last administered on 12/30/16 09:21; Admin Dose 1 APPLIC; Start 12/14/16 at 21:00 Ketoconazole 1 applic 1 applic BID TOP Last administered on 12/30/16 09:21; Admin Dose 1 APPLIC; Start 12/14/16 at 21:00 Amikacin Sulfate/ Sodium Chloride (Amikacin/NS) 150 ml @ 150 mls/hr Q72H IVPB Last administered on 12/27/16 02:12; Admin Dose 150 MLS/HR; Start 12/21/16 at 00 :00; Status Future Hold Fluconazole 100 mg 100 mg DAILY PO Last administered on 12/30/16 09:20; Admin Dose 100 MG; Start 12/20/16 at 13:30 Vancomycin HCl 750 mg/Sodium Chloride 150 ml @ 75 mls/hr Q36H IVPB Last administered on 12/29/16 17:43; Admin Dose 75 MLS/HR; Start 12/28/16 at 06:00 Ceftazidime (Fortaz 1gm/50 ml (Pmx)) 50 ml @ 100 mls/hr Q8 IVPB Last administered on 12/30/16t 05:41; Admin Dose 100 MLS/HR; Start 12/29/16 at 14:00 ELI VALDEZ NP December 30, 2016 13:42
--- NOTE | 2016-12-30 13:46 | CONS ---
Date/Time of Note Date/Time of Note DATE: 12/30/16 TIME: 13:45 Consult Date/Type/Reason Admit Date/Time Nov 30, 2016 at 04:54 Initial Consult Date 12/01/16 Type of Consultation: Pulmonary Ordering Provider: CHARLETTE RUTHERFORD Subjective Status post trach change yesterday for cuff leak, patient changed to Shiley 9 XLT no evidence of cuff leak this morning. Objective Vital Signs Date Time Temp Pulse Resp B/P Pulse Ox O2 Delivery O2 Flow Rate FiO2 12/30/16 13:08 81 12/30/16 11:28 98.4 20 114/65 96 12/30/16 11:00 50 Intake and Output 12/29/16 12/29/16 12/30/16 15:00 23:00 07:00 Intake Total 50 ml 970 ml 920 ml Output Total 600 ml 350 ml Balance 50 ml 370 ml 570 ml Exam PHYSICAL EXAMINATION GENERAL: Elderly gentleman, on mechanical ventilation appears comfortable VITAL SIGNS: see below. HEENT: Pupils equal, round, and reactive to light. Tracheostomy site clean and intact. CARDIAC: S1, S2, 1/6 systolic ejection murmur CHEST: Diminished air entry bilaterally. ABDOMEN: Mildly distended. Bowel sounds present no guarding or rebound EXTREMITIES: No cyanosis, clubbing edema +1 NEUROLOGIC: unable to assess Results/Medications Result Diagram: 12/30/16 1215 12/30/16 1215 Results 24 hrs Laboratory Tests Test 12/30/16 12:15 White Blood Count 14.5 H Red Blood Count 2.73 L Hemoglobin 7.6 L Hematocrit 26.8 L Mean Corpuscular Volume 98.2 Mean Corpuscular Hemoglobin 27.8 L Mean Corpuscular Hemoglobin Concent 28.4 L Red Cell Distribution Width 18.0 H Platelet Count 111 L Mean Platelet Volume 10.9 H Neutrophils % 84.8 H Lymphocytes % 5.3 L Monocytes % 4.9 Eosinophils % 4.3 Basophils % 0.1 Nucleated Red Blood Cells % 0.0 Neutrophils # 12.3 H Lymphocytes # 0.8 Monocytes # 0.7 Eosinophils # 0.6 H Basophils # 0.0 Nucleated Red Blood Cells # 0.0 Sodium Level 142 Potassium Level 4.4 Chloride Level 99 Carbon Dioxide Level 34 H Anion Gap 13 Blood Urea Nitrogen 80 H Creatinine 1.13 Glucose Level 127 Calcium Level 11.3 H Phosphorus Level 4.7 Magnesium Level 2.7 H Medications Current Medications Acetaminophen (Tylenol Tab) 650 mg Q6H PRN PEG PAIN LEVEL 1-3 OR FEVER Last administered on 12/27/16 09:47; Admin Dose 650 MG; Start 11/30/16 at 05:00 Morphine Sulfate (morphine) 2 mg Q4H PRN IV PAIN LEVEL 7-10 Last administered on 12/18/16 09:14; Admin Dose 2 MG; Start 11/30/16 at 05:00 Miscellaneous Information 1 ea NOTE XX ; Start 11/30/16 at 05:00 Glucose (Glutose) 15 gm Q15M PRN PO DECREASED GLUCOSE; Start 11/30/16 at 05:00 Glucose (Glutose) 22.5 gm Q15M PRN PO DECREASED GLUCOSE; Start 11/30/16 at 05: 00 Dextrose (D50w Syringe) 25 ml Q15M PRN IV DECREASED GLUCOSE; Start 11/30/16 at 05:00 Dextrose (D50w Syringe) 50 ml Q15M PRN IV DECREASED GLUCOSE; Start 11/30/16 at 05:00 Glucagon (Glucagen) 1 mg Q15M PRN IM DECREASED GLUCOSE; Start 11/30/16 at 05:00 Glucose (Glutose) 15 gm Q15M PRN BUCCAL DECREASED GLUCOSE; Start 11/30/16 at 05 :00 Metoprolol Tartrate (Lopressor) 2.5 mg Q2H PRN IV heart rate over 110 Last administered on 12/17/16 06:57; Admin Dose 2.5 MG; Start 12/01/16 at 12:00 Collagenase (Santyl) 1 applic DAILY TOP Last administered on 12/30/16 09:22; Admin Dose 1 APPLIC; Start 12/02/16 at 12:00 Collagenase (Santyl) 1 applic DAILY PRN TOP PER WOUND CARE ORDERS; Start at 11:30 Metoprolol Tartrate (Lopressor) 50 mg BID GTB Last administered on 12/29/16 21 :36; Admin Dose 50 MG; Start 12/04/16 at 21:00 Famotidine (Pepcid) 20 mg DAILY GTB Last administered on 12/30/16 09:20; Admin Dose 20 MG; Start 12/05/16 at 09:00 Losartan Potassium (Cozaar) 25 mg BID PO Last administered on 12/29/16 21:34; Admin Dose 25 MG; Start 12/05/16 at 21:00 Hydralazine HCl (Apresoline) 10 mg Q6H PRN IV ELEVATED BLOOD PRESSURE Last administered on 12/13/16 18:26; Admin Dose 10 MG; Start 12/06/16 at 16:00 Amikacin Sulfate (Amikacin Iv Per Pharmacy) AMIKACIN PER PHARMACY NOTE XX ; Start 12/10/16 at 19:00 Ketoconazole (Nizoral Shampoo) 1 applic Q12 TOP Last administered on 12/30/16 09:21; Admin Dose 1 APPLIC; Start 12/14/16 at 21:00 Ketoconazole 1 applic 1 applic BID TOP Last administered on 12/30/16 09:21; Admin Dose 1 APPLIC; Start 12/14/16 at 21:00 Amikacin Sulfate/ Sodium Chloride (Amikacin/NS) 150 ml @ 150 mls/hr Q72H IVPB Last administered on 12/27/16 02:12; Admin Dose 150 MLS/HR; Start 12/21/16 at 00 :00; Status Future Hold Fluconazole 100 mg 100 mg DAILY PO Last administered on 12/30/16 09:20; Admin Dose 100 MG; Start 12/20/16 at 13:30 Ceftazidime (Fortaz 1gm/50 ml (Pmx)) 50 ml @ 100 mls/hr Q8 IVPB Last administered on 12/30/16 05:41; Admin Dose 100 MLS/HR; Start 12/29/16 at 14:00 Assessment/Plan Chief Complaint/Hosp Course Assessment 1. Acute on chronic hypoxemic respiratory failure on mechanical ventilation via tracheostomy 2. Persistent leukocytosis likely polymicrobial sepsis bilateral pneumonia possible necrotizing. 3. Mild dehydration 4. Anemia of chronic disease 5. History of CVA 6. Dysphagia with G-tube Plan 1. Continue mechanical ventilation 2. Continue broad-spectrum antibiotics persistent leukocytosis agree with CT chest to rule out abscess 3. Tube feeding as tolerated 4. Correction of electrolyte abnormalities 5. DVT GI prophylaxis Disposition Continue telemetry care Discussed with primary care Overall prognosis very poor. Problems: JOSEF HERRING MD, [facility] December 30, 2016 13:46
[2016-12-30] MEDS ORDERED: SOD CHLORIDE 0.9% 1,000 ML IV SCH (15:30)
[2016-12-31] VITALS (23 sets, daily range): BP systolic 93–128; BP diastolic 28–69; PULSE 70–79; RESP 14–19
[2016-12-31] MEDS: IPRATROPIUM (HFA) 12.9 GM INHALER INH SCH ×3 (07:44→23:38)
[2016-12-31] MEDS: LEVALBUTEROL (HFA) 15 GM INHALER INH SCH ×3 (07:45→23:38)
[2016-12-31 08:16] LABS: ADD SCAN DIFF NO
[2016-12-31 08:38] LABS: POTASSIUM 4.7 mmol/L (3.5-5.1)
[2016-12-31 08:40] LABS: CREATININE 1.29 mg/dl (0.61-1.24)
[2016-12-31 08:41] LABS: CALCIUM 11.1 mg/dl (8.4-10.2)
[2016-12-31 08:47] LABS: ABNORMAL IP MESSAGE 1; BASOPHILS % 0.3 % (0.0-2.0); EOSINOPHILS # 0.8 10^3/ul (0.0-0.5); HEMATOCRIT 26.4 % (42.0-52.0); HEMOGLOBIN 7.6 g/dl (14.0-18.0); LYMPHOCYTES # 0.8 10^3/ul (0.8-2.9); LYMPHOCYTES % 6.6 % (15.0-51.0); MEAN CORPUSCULAR HGB CONC 28.8 g/dl (32.0-37.0); MEAN CORPUSCULAR VOLUME 97.4 fl (82.0-101.0); MEAN PLATELET VOLUME 11.9 fl (7.4-10.4); MONOCYTE # 0.6 10^3/ul (0.3-0.9); MONOCYTES % 5.1 % (0.0-11.0); NEUTROPHIL # 9.2 10^3/ul (1.6-7.5); NEUTROPHILS % 80.2 % (39.0-77.0); PLATELET COUNT 101 10^3/UL (140-415); RED BLOOD COUNT 2.71 10^6/ul (4.70-6.10); WHITE BLOOD COUNT 11.4 10^3/ul (4.8-10.8)
[2016-12-31] MEDS: FAMOTIDINE 20 MG TAB GTB SCH (09:51)
[2016-12-31] MEDS: COLLAGENASE 30 GM TUBE TOP SCH (09:51)
[2016-12-31] MEDS: METOPROLOL 25 MG TAB GTB SCH ×2 (09:51→21:29)
[2016-12-31] MEDS: KETOCONAZOLE 2% SHAMPOO 120 ML BTL TOP SCH ×2 (09:51→21:28)
[2016-12-31] MEDS: KETOCONAZOLE 2% 15 GM CR TOP SCH ×2 (09:51→21:27)
[2016-12-31] MEDS: FLUCONAZOLE 100 MG TAB PO SCH (09:51)
[2016-12-31] MEDS: LOSARTAN 25 MG TAB PO SCH (09:51)
[2016-12-31] MEDS ORDERED: SOD CHLORIDE 0.9% 250 ML IV* ONE (10:05)
[2016-12-31] MEDS: CEFTAZIDIME 1GM/50 ML (PMX) 50 ML IVPB SCH (10:11)
--- NOTE | 2016-12-31 10:37 | PN ---
Date/Time of Note Date/Time of Note DATE: 12/31/16 TIME: 10:12 Assessment/Plan VTE Prophylaxis VTE Prophylaxis Intervention: SCD's Lines/Catheters IV Catheter Type (from Nrsg): PICC Line Central line still needed: Yes (for IV access ) Urinary Cath still in place: Yes Reason Cath still needed: other (indicate) (monitor UOP ) Assessment/Plan Assessment/Plan 81 yo man with: 1. Sepsis, Bilateral Pneumonia, HCAP vs VAP, CT chest and also confirmed on WBC scan with severe bilateral PNA. Sputum cx polymicrobial with MDRO pseudomonas and Providencia. Patient requiring at least Q3 to 4hrs suctioning for now with copious amount of secretions but a little less. Patient on quadruple abx with Diflucan po, Amikacin, Vancomycin and Fortaz No other source identified on WBC scan besides PNA bilateral R>L Appreciate ID recs, WBC down to 12K yesterday, awaiting labs today. CT chest 12/26 still with unchanged finding of R>>L multifocal PNA with dense infiltrates. CXR unchanged today. No abscess Discussed with Pulmonary, no bronch per Pulmonary ? RML gangrene per Pulmonary ... if so not candidate for surgical intervention...Really poor prognosis 2. Chronic vent-dependent respiratory failure, stable on Vent, oxygenating well on FiO2 50% currently. With also extensive b/l PNA, large amount of secretions, Off vanco since yesterday due to ELPIDIO Continue Ceftazidime, Diflucan and Amikacin. Appreciate Pulmonary and ID recommendations, leaking trach changed 3. Acute kidney injury, Cherry in place and good UOP, Monitor renal function Send urine electrolytes and Eosinophils. Uric acid and CK levels Agree with D/c Vanco for now and trying to minimize nephrotoxic drugs. 4. Severe anemia on admission, possible GI bleeding, but if so resolved now. Continue PPI. Hb remains at 7.6 Transfuse for Hb<7.5 hb, stable so far close to 8.0. Transfusion of 2 units pRBC today No evidence for active bleeding for now. Back on Iron supplement. 5. Elevated troponins in setting of a fib with RVR and sepsis, CAD In SR currently and HR controlled with Bblocker, up to 50 mg po bid. Cardiology prn. No anticoag due to Anemia 6. MRSA nares: s/p Bactroban. 7. Sacral Decub, seems to be healing well per RN and wound care but cx polymicrobial with MDRO. Abx adjusted by ID and on wound care protocol. 8. Hypertension: Continue Metoprolol at 50 mg po bid and hold Losartan with ELPIDIO . Prophylaxis: Continue SCDs and Famotidine. Disposition: On contact isolation and Telemetry. WBC scan confirming PNA as only current source of active infection, per ID continue current abx and aggressive pulmonary toilet. Monitor renal function Plan for d/c back to Subacute but may need LTAC soon if WBC trending down and stable. Prognosis remains poor to fair at best. Patient is DNR Subjective 24 Hr Interval Summary Free Text/Dictation Patient unchanged clinically and now noted to have ELPIDIO also pRBC today and will likely need LTAC placement Afebrile and WBC down to 11 On 50% FiO2 Exam/Review of Systems Vital Signs Vitals Vital Signs Date Time Temp Pulse Resp B/P Pulse Ox O2 Delivery O2 Flow Rate FiO2 12/31/16 09:15 76 15 97 50 12/31/16 07:30 98.1 116/69 Intake and Output 12/30/16 12/30/16 12/31/16 15:00 23:00 07:00 Intake Total 1070 ml 785 ml Output Total 400 ml 300 ml Balance 670 ml 485 ml Exam Constitutional: frail, non-verbal, other (lethargic ) Respiratory: diminished breath sounds (bilaterally ), other (on Vent and new trach in place ) Cardiovascular: nl pulses, regular rate and rhythm Gastrointestinal: non-tender, soft Musculoskeletal: other (muscke wasting ) Neurological: TICKET AGENT II-XII intact, lethargic, other (quadriparesis ) Results Result Diagram: 12/31/16 0707 12/31/16 07 Results 24 hrs Laboratory Tests Test 12/30/16 12:15 12/31/16 07:07 White Blood Count 14.5 H 11.4 #H Red Blood Count 2.73 L 2.71 L Hemoglobin 7.6 L 7.6 L Hematocrit 26.8 L 26.4 L Mean Corpuscular Volume 98.2 97.4 Mean Corpuscular Hemoglobin 27.8 L 28.0 L Mean Corpuscular Hemoglobin Concent 28.4 L 28.8 L Red Cell Distribution Width 18.0 H 18.0 H Platelet Count 111 L 101 L Mean Platelet Volume 10.9 H 11.9 H Neutrophils % 84.8 H 80.2 H Lymphocytes % 5.3 L 6.6 L Monocytes % 4.9 5.1 Eosinophils % 4.3 7.0 Basophils % 0.1 0.3 Nucleated Red Blood Cells % 0.0 0.0 Neutrophils # 12.3 H 9.2 H Lymphocytes # 0.8 0.8 Monocytes # 0.7 0.6 Eosinophils # 0.6 H 0.8 H Basophils # 0.0 0.0 Nucleated Red Blood Cells # 0.0 0.0 Sodium Level 142 143 Potassium Level 4.4 4.7 Chloride Level 99 101 Carbon Dioxide Level 34 H 33 H Anion Gap 13 14 Blood Urea Nitrogen 80 H 83 H Creatinine 1.13 1.29 H Glucose Level 127 107 Calcium Level 11.3 H 11.1 H Phosphorus Level 4.7 Magnesium Level 2.7 H Medications Medications Current Medications Acetaminophen (Tylenol Tab) 650 mg Q6H PRN PEG PAIN LEVEL 1-3 OR FEVER Last administered on 12/27/16 09:47; Admin Dose 650 MG; Start 11/30/16 at 05:00 Morphine Sulfate (morphine) 2 mg Q4H PRN IV PAIN LEVEL 7-10 Last administered on 12/18/16 09:14; Admin Dose 2 MG; Start 11/30/16 at 05:00 Miscellaneous Information 1 ea NOTE XX ; Start 11/30/16 at 05:00 Glucose (Glutose) 15 gm Q15M PRN PO DECREASED GLUCOSE; Start 11/30/16 at 05:00 Glucose (Glutose) 22.5 gm Q15M PRN PO DECREASED GLUCOSE; Start 11/30/16 at 05: 00 Dextrose (D50w Syringe) 25 ml Q15M PRN IV DECREASED GLUCOSE; Start 11/30/16 at 05:00 Dextrose (D50w Syringe) 50 ml Q15M PRN IV DECREASED GLUCOSE; Start 11/30/16 at 05:00 Glucagon (Glucagen) 1 mg Q15M PRN IM DECREASED GLUCOSE; Start 11/30/16 at 05:00 Glucose (Glutose) 15 gm Q15M PRN BUCCAL DECREASED GLUCOSE; Start 11/30/16 at 05 :00 Metoprolol Tartrate (Lopressor) 2.5 mg Q2H PRN IV heart rate over 110 Last administered on 12/17/16 06:57; Admin Dose 2.5 MG; Start 12/01/16 at 12:00 Collagenase (Santyl) 1 applic DAILY TOP Last administered on 12/31/16 09:51; Admin Dose 1 APPLIC; Start 12/02/16 at 12:00 Collagenase (Santyl) 1 applic DAILY PRN TOP PER WOUND CARE ORDERS; Start at 11:30 Metoprolol Tartrate (Lopressor) 50 mg BID GTB Last administered on 12/31/16 09 :51; Admin Dose 50 MG; Start 12/04/16 at 21:00 Famotidine (Pepcid) 20 mg DAILY GTB Last administered on 12/31/16 09:51; Admin Dose 20 MG; Start 12/05/16 at 09:00 Losartan Potassium (Cozaar) 25 mg BID PO Last administered on 12/31/16 09:51; Admin Dose 25 MG; Start 12/05/16 at 21:00 Hydralazine HCl (Apresoline) 10 mg Q6H PRN IV ELEVATED BLOOD PRESSURE Last administered on 12/13/16 18:26; Admin Dose 10 MG; Start 12/06/16 at 16:00 Amikacin Sulfate (Amikacin Iv Per Pharmacy) AMIKACIN PER PHARMACY NOTE XX ; Start 12/10/16 at 19:00 Ketoconazole (Nizoral Shampoo) 1 applic Q12 TOP Last administered on 12/31/16 09:51; Admin Dose 1 APPLIC; Start 12/14/16 at 21:00 Ketoconazole 1 applic 1 applic BID TOP Last administered on 12/31/16 09:51; Admin Dose 1 APPLIC; Start 12/14/16 at 21:00 Amikacin Sulfate/ Sodium Chloride (Amikacin/NS) 150 ml @ 150 mls/hr Q72H IVPB Last administered on 12/27/16 02:12; Admin Dose 150 MLS/HR; Start 12/21/16 at 00 :00; Status Future Hold Fluconazole 100 mg 100 mg DAILY PO Last administered on 12/31/16 09:51; Admin Dose 100 MG; Start 12/20/16 at 13:30 Ceftazidime (Fortaz 1gm/50 ml (Pmx)) 50 ml @ 100 mls/hr Q12 IVPB Last administered on 12/31/16 10:11; Admin Dose 100 MLS/HR; Start 12/30/16 at 21:00 CHARLETTE RUTHERFORD December 31, 2016 10:30
--- NOTE | 2016-12-31 13:52 | CONS ---
Date/Time of Note Date/Time of Note DATE: 12/31/16 TIME: 13:50 Assessment/Plan Assessment/Plan Chief Complaint/Hosp Course SUBJECTIVE: No events overnight. No fevers. The patient is lethargic. INDWELLINGS: Trach, PEG, Cherry, PICC line. ANTIMICROBIALS: 1. Amikacin. 2. Fortaz. 3. Diflucan PHYSICAL EXAMINATION: GENERAL: This is well-developed, fragile, elderly man who is in no distress. HEENT: Head atraumatic, normocephalic. Sclerae anicteric. Buccal mucosa dry. NECK: Supple. Tracheostomy present. CHEST: Rise symmetrical. Breath sounds clear, diminished to bases. HEART: S1, S2. ABDOMEN: Soft, bowel sounds present. EXTREMITIES: No cyanosis. ASSESSMENT: 1. Sepsis with persistent leukocytosis 2 to #2. 2. Healthcare-associated pneumonia with sputum culture growing Pseudomonas aeruginosa and Providencia stuartii. 3. Sacral decubitus ulcer, improving. 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 5. Hypertension. 6. Dysphagia. PLAN: Clinically unchanged, renal f-n getting worse, s/p Vanco dc'd, repeat sputum cx +PSA/Serratia, will keep on Amikacin, dc Fortaz, continue Diflucan [facility] staff Problems: Consultation Date/Type/Reason Admit Date/Time Nov 30, 2016 at 04:54 Initial Consult Date 12/01/16 Type of Consultation: ID Referring Provider: CHARLETTE RUTHERFORD Exam/Review of Systems Vital Signs Vitals Vital Signs Date Time Temp Pulse Resp B/P Pulse Ox O2 Delivery O2 Flow Rate FiO2 12/31/16 12:25 72 12/31/16 11:33 98.0 19 108/53 96 12/31/16 11:02 50 Intake and Output 12/30/16 12/30/16 12/31/16 15:00 23:00 07:00 Intake Total 1070 ml 785 ml Output Total 400 ml 300 ml Balance 670 ml 485 ml Results Result Diagram: 12/31/16 0707 12/31/16 0707 Results 24 hrs Laboratory Tests Test 12/31/16 07:07 12/31/16 11:17 White Blood Count 11.4 #H Red Blood Count 2.71 L Hemoglobin 7.6 L Hematocrit 26.4 L Mean Corpuscular Volume 97.4 Mean Corpuscular Hemoglobin 28.0 L Mean Corpuscular Hemoglobin Concent 28.8 L Red Cell Distribution Width 18.0 H Platelet Count 101 L Mean Platelet Volume 11.9 H Neutrophils % 80.2 H Lymphocytes % 6.6 L Monocytes % 5.1 Eosinophils % 7.0 Basophils % 0.3 Nucleated Red Blood Cells % 0.0 Neutrophils # 9.2 H Lymphocytes # 0.8 Monocytes # 0.6 Eosinophils # 0.8 H Basophils # 0.0 Nucleated Red Blood Cells # 0.0 Sodium Level 143 Potassium Level 4.7 Chloride Level 101 Carbon Dioxide Level 33 H Anion Gap 14 Blood Urea Nitrogen 83 H Creatinine 1.29 H Glucose Level 107 Calcium Level 11.1 H Uric Acid 6.0 Creatine Kinase < 20 L Medications Medications Current Medications Acetaminophen (Tylenol Tab) 650 mg Q6H PRN PEG PAIN LEVEL 1-3 OR FEVER Last administered on 12/27/16 09:47; Admin Dose 650 MG; Start 11/30/16 at 05:00 Morphine Sulfate (morphine) 2 mg Q4H PRN IV PAIN LEVEL 7-10 Last administered on 12/18/16 09:14; Admin Dose 2 MG; Start 11/30/16 at 05:00 Miscellaneous Information 1 ea NOTE XX ; Start 11/30/16 at 05:00 Glucose (Glutose) 15 gm Q15M PRN PO DECREASED GLUCOSE; Start 11/30/16 at 05:00 Glucose (Glutose) 22.5 gm Q15M PRN PO DECREASED GLUCOSE; Start 11/30/16 at 05: 00 Dextrose (D50w Syringe) 25 ml Q15M PRN IV DECREASED GLUCOSE; Start 11/30/16 at 05:00 Dextrose (D50w Syringe) 50 ml Q15M PRN IV DECREASED GLUCOSE; Start 11/30/16 at 05:00 Glucagon (Glucagen) 1 mg Q15M PRN IM DECREASED GLUCOSE; Start 11/30/16 at 05:00 Glucose (Glutose) 15 gm Q15M PRN BUCCAL DECREASED GLUCOSE; Start 11/30/16 at 05 :00 Metoprolol Tartrate (Lopressor) 2.5 mg Q2H PRN IV heart rate over 110 Last administered on 12/17/16 06:57; Admin Dose 2.5 MG; Start 12/01/16 at 12:00 Collagenase (Santyl) 1 applic DAILY TOP Last administered on 12/31/16 09:51; Admin Dose 1 APPLIC; Start 12/02/16 at 12:00 Collagenase (Santyl) 1 applic DAILY PRN TOP PER WOUND CARE ORDERS; Start at 11:30 Metoprolol Tartrate (Lopressor) 50 mg BID GTB Last administered on 12/31/16 09 :51; Admin Dose 50 MG; Start 12/04/16 at 21:00 Famotidine (Pepcid) 20 mg DAILY GTB Last administered on 12/31/16 09:51; Admin Dose 20 MG; Start 12/05/16 at 09:00 Hydralazine HCl (Apresoline) 10 mg Q6H PRN IV ELEVATED BLOOD PRESSURE Last administered on 12/13/16 18:26; Admin Dose 10 MG; Start 12/06/16 at 16:00 Amikacin Sulfate (Amikacin Iv Per Pharmacy) AMIKACIN PER PHARMACY NOTE XX ; Start 12/10/16 at 19:00 Ketoconazole (Nizoral Shampoo) 1 applic Q12 TOP Last administered on 12/31/16 09:51; Admin Dose 1 APPLIC; Start 12/14/16 at 21:00 Ketoconazole 1 applic 1 applic BID TOP Last administered on 12/31/16 09:51; Admin Dose 1 APPLIC; Start 12/14/16 at 21:00 Amikacin Sulfate/ Sodium Chloride (Amikacin/NS) 150 ml @ 150 mls/hr Q72H IVPB Last administered on 12/27/16 02:12; Admin Dose 150 MLS/HR; Start 12/21/16 at 00 :00; Status Future Hold Fluconazole 100 mg 100 mg DAILY PO Last administered on 12/31/16 09:51; Admin Dose 100 MG; Start 12/20/16 at 13:30 Ceftazidime (Fortaz 1gm/50 ml (Pmx)) 50 ml @ 100 mls/hr Q12 IVPB Last administered on 12/31/16 10:11; Admin Dose 100 MLS/HR; Start 12/30/16 at 21:00 ELI VALDEZ NP December 31, 2016 13:52
--- NOTE | 2016-12-31 14:19 | CONS ---
Date/Time of Note Date/Time of Note DATE: 12/31/16 TIME: 14:18 Consult Date/Type/Reason Admit Date/Time Nov 30, 2016 at 04:54 Initial Consult Date 12/01/16 Type of Consultation: Pulmonary Ordering Provider: CHARLETTE RUTHERFORD Subjective Patient continues ventilation Objective Vital Signs Date Time Temp Pulse Resp B/P Pulse Ox O2 Delivery O2 Flow Rate FiO2 12/31/16 13:20 72 16 97 50 12/31/16 11:33 98.0 108/53 Intake and Output 12/30/16 12/30/16 12/31/16 15:00 23:00 07:00 Intake Total 1070 ml 785 ml Output Total 400 ml 300 ml Balance 670 ml 485 ml Exam PHYSICAL EXAMINATION GENERAL: Elderly gentleman, on mechanical ventilation appears comfortable VITAL SIGNS: see below. HEENT: Pupils equal, round, and reactive to light. Tracheostomy site clean and intact. CARDIAC: S1, S2, 1/6 systolic ejection murmur CHEST: Diminished air entry bilaterally. ABDOMEN: Mildly distended. Bowel sounds present no guarding or rebound EXTREMITIES: No cyanosis, clubbing edema +1 NEUROLOGIC: unable to assess Results/Medications Result Diagram: 12/31/16 0707 12/31/16 0707 Results 24 hrs Laboratory Tests Test 12/31/16 07:07 12/31/16 11:17 White Blood Count 11.4 #H Red Blood Count 2.71 L Hemoglobin 7.6 L Hematocrit 26.4 L Mean Corpuscular Volume 97.4 Mean Corpuscular Hemoglobin 28.0 L Mean Corpuscular Hemoglobin Concent 28.8 L Red Cell Distribution Width 18.0 H Platelet Count 101 L Mean Platelet Volume 11.9 H Neutrophils % 80.2 H Lymphocytes % 6.6 L Monocytes % 5.1 Eosinophils % 7.0 Basophils % 0.3 Nucleated Red Blood Cells % 0.0 Neutrophils # 9.2 H Lymphocytes # 0.8 Monocytes # 0.6 Eosinophils # 0.8 H Basophils # 0.0 Nucleated Red Blood Cells # 0.0 Sodium Level 143 Potassium Level 4.7 Chloride Level 101 Carbon Dioxide Level 33 H Anion Gap 14 Blood Urea Nitrogen 83 H Creatinine 1.29 H Glucose Level 107 Calcium Level 11.1 H Uric Acid 6.0 Creatine Kinase < 20 L Medications Current Medications Acetaminophen (Tylenol Tab) 650 mg Q6H PRN PEG PAIN LEVEL 1-3 OR FEVER Last administered on 12/27/16 09:47; Admin Dose 650 MG; Start 11/30/16 at 05:00 Morphine Sulfate (morphine) 2 mg Q4H PRN IV PAIN LEVEL 7-10 Last administered on 12/18/16 09:14; Admin Dose 2 MG; Start 11/30/16 at 05:00 Miscellaneous Information 1 ea NOTE XX ; Start 11/30/16 at 05:00 Glucose (Glutose) 15 gm Q15M PRN PO DECREASED GLUCOSE; Start 11/30/16 at 05:00 Glucose (Glutose) 22.5 gm Q15M PRN PO DECREASED GLUCOSE; Start 11/30/16 at 05: 00 Dextrose (D50w Syringe) 25 ml Q15M PRN IV DECREASED GLUCOSE; Start 11/30/16 at 05:00 Dextrose (D50w Syringe) 50 ml Q15M PRN IV DECREASED GLUCOSE; Start 11/30/16 at 05:00 Glucagon (Glucagen) 1 mg Q15M PRN IM DECREASED GLUCOSE; Start 11/30/16 at 05:00 Glucose (Glutose) 15 gm Q15M PRN BUCCAL DECREASED GLUCOSE; Start 11/30/16 at 05 :00 Metoprolol Tartrate (Lopressor) 2.5 mg Q2H PRN IV heart rate over 110 Last administered on 12/17/16 06:57; Admin Dose 2.5 MG; Start 12/01/16 at 12:00 Collagenase (Santyl) 1 applic DAILY TOP Last administered on 12/31/16 09:51; Admin Dose 1 APPLIC; Start 12/02/16 at 12:00 Collagenase (Santyl) 1 applic DAILY PRN TOP PER WOUND CARE ORDERS; Start at 11:30 Metoprolol Tartrate (Lopressor) 50 mg BID GTB Last administered on 12/31/16 09 :51; Admin Dose 50 MG; Start 12/04/16 at 21:00 Famotidine (Pepcid) 20 mg DAILY GTB Last administered on 12/31/16 09:51; Admin Dose 20 MG; Start 12/05/16 at 09:00 Hydralazine HCl (Apresoline) 10 mg Q6H PRN IV ELEVATED BLOOD PRESSURE Last administered on 12/13/16 18:26; Admin Dose 10 MG; Start 12/06/16 at 16:00 Amikacin Sulfate (Amikacin Iv Per Pharmacy) AMIKACIN PER PHARMACY NOTE XX ; Start 12/10/16 at 19:00 Ketoconazole (Nizoral Shampoo) 1 applic Q12 TOP Last administered on 12/31/16 09:51; Admin Dose 1 APPLIC; Start 12/14/16 at 21:00 Ketoconazole 1 applic 1 applic BID TOP Last administered on 12/31/16 09:51; Admin Dose 1 APPLIC; Start 12/14/16 at 21:00 Amikacin Sulfate/ Sodium Chloride (Amikacin/NS) 150 ml @ 150 mls/hr Q72H IVPB Last administered on 12/27/16 02:12; Admin Dose 150 MLS/HR; Start 12/21/16 at 00 :00; Status Future Hold Fluconazole (Diflucan) 100 mg DAILY PO Last administered on 12/31/16 09:51; Admin Dose 100 MG; Start 12/20/16 at 13:30 Assessment/Plan Chief Complaint/Hosp Course Assessment 1. Acute on chronic hypoxemic respiratory failure on mechanical ventilation via tracheostomy 2. Persistent leukocytosis likely polymicrobial sepsis bilateral pneumonia possible necrotizing. 3. Mild dehydration 4. Anemia of chronic disease 5. History of CVA 6. Dysphagia with G-tube Plan 1. Continue mechanical ventilation 2. Continue broad-spectrum antibiotics polymicrobial sepsis with multi resistant organisms 3. Tube feeding as tolerated 4. Correction of electrolyte abnormalities 5. DVT GI prophylaxis Disposition Continue telemetry care Agree with discharge planning Problems: JOSEF HERRING MD, [facility] December 31, 2016 14:19
[2017-01-01] VITALS (24 sets, daily range): BP systolic 104–128; BP diastolic 55–75; PULSE 65–81; RESP 14–20
[2017-01-01 07:33] LABS: ADD SCAN DIFF NO
[2017-01-01 07:37] LABS: ABNORMAL IP MESSAGE 1; BASOPHILS % 0.2 % (0.0-2.0); EOSINOPHILS # 0.3 10^3/ul (0.0-0.5); EOSINOPHILS % 1.7 % (0.0-7.0); HEMATOCRIT 32.1 % (42.0-52.0); HEMOGLOBIN 9.7 g/dl (14.0-18.0); LYMPHOCYTES # 0.6 10^3/ul (0.8-2.9); LYMPHOCYTES % 3.4 % (15.0-51.0); MEAN CORPUSCULAR HGB CONC 30.2 g/dl (32.0-37.0); MEAN CORPUSCULAR VOLUME 92.5 fl (82.0-101.0); MONOCYTE # 0.8 10^3/ul (0.3-0.9); MONOCYTES % 4.4 % (0.0-11.0); NEUTROPHIL # 16.1 10^3/ul (1.6-7.5); NEUTROPHILS % 89.6 % (39.0-77.0); RED BLOOD COUNT 3.47 10^6/ul (4.70-6.10); RED CELL DISTRIBUTION WIDTH 18.2 % (11.5-14.5)
[2017-01-01 08:08] LABS: POTASSIUM 4.6 mmol/L (3.5-5.1)
[2017-01-01] MEDS: IPRATROPIUM (HFA) 12.9 GM INHALER INH SCH ×3 (08:08→23:24)
[2017-01-01] MEDS: LEVALBUTEROL (HFA) 15 GM INHALER INH SCH ×3 (08:08→23:25)
[2017-01-01 08:11] LABS: CREATININE 1.38 mg/dl (0.61-1.24)
[2017-01-01 08:14] LABS: MAGNESIUM 2.6 mg/dl (1.7-2.5); PHOSPHORUS 5.3 mg/dl (2.5-4.9)
[2017-01-01] MEDS: METOPROLOL 25 MG TAB GTB SCH ×2 (09:56→21:14)
[2017-01-01] MEDS: COLLAGENASE 30 GM TUBE TOP SCH (09:57)
[2017-01-01] MEDS: KETOCONAZOLE 2% SHAMPOO 120 ML BTL TOP SCH ×2 (09:57→21:13)
[2017-01-01] MEDS: FLUCONAZOLE 100 MG TAB PO SCH (09:57)
[2017-01-01] MEDS: KETOCONAZOLE 2% 15 GM CR TOP SCH ×2 (09:57→21:13)
[2017-01-01] MEDS: FAMOTIDINE 20 MG TAB GTB SCH (09:57)
--- NOTE | 2017-01-01 11:17 | CONS ---
Date/Time of Note Date/Time of Note DATE: 01/01/17 TIME: 11:16 Consult Date/Type/Reason Admit Date/Time Nov 30, 2016 at 04:54 Initial Consult Date 12/01/16 Type of Consultation: Pulmonary Ordering Provider: CHARLETTE RUTHERFORD Subjective Patient remains stable no significant changes Objective Vital Signs Date Time Temp Pulse Resp B/P Pulse Ox O2 Delivery O2 Flow Rate FiO2 01/01/17 09:43 83 17 97 50 01/01/17 07:26 98.0 117/58 Intake and Output 12/31/16 12/31/16 01/01/17 15:00 23:00 07:00 Intake Total 350 ml 920 ml Output Total 300 ml 650 ml Balance 50 ml 270 ml Exam PHYSICAL EXAMINATION GENERAL: Elderly gentleman, on mechanical ventilation appears comfortable VITAL SIGNS: see below. HEENT: Pupils equal, round, and reactive to light. Tracheostomy site clean and intact. CARDIAC: S1, S2, 1/6 systolic ejection murmur CHEST: Diminished air entry bilaterally. ABDOMEN: Mildly distended. Bowel sounds present no guarding or rebound EXTREMITIES: No cyanosis, clubbing edema +1 NEUROLOGIC: unable to assess Results/Medications Result Diagram: 01/01/17 0630 01/01/17 0630 Results 24 hrs Laboratory Tests Test 12/31/16 11:17 12/31/16 12:00 01/01/17 06:30 Uric Acid 6.0 Creatine Kinase < 20 L Urine Eosinophils % 0.0 Urine Random Creatinine < 12.40 L Urine Random Sodium 72 Urine Total Protein 122.0 H White Blood Count 18.0 #H Red Blood Count 3.47 #L Hemoglobin 9.7 #L Hematocrit 32.1 #L Mean Corpuscular Volume 92.5 Mean Corpuscular Hemoglobin 28.0 L Mean Corpuscular Hemoglobin Concent 30.2 L Red Cell Distribution Width 18.2 H Platelet Count Pending Mean Platelet Volume 12.0 H Neutrophils % 89.6 H Lymphocytes % 3.4 L Monocytes % 4.4 Eosinophils % 1.7 Basophils % 0.2 Nucleated Red Blood Cells % 0.0 Neutrophils # 16.1 H Lymphocytes # 0.6 L Monocytes # 0.8 Eosinophils # 0.3 Basophils # 0.0 Nucleated Red Blood Cells # 0.0 Sodium Level 143 Potassium Level 4.6 Chloride Level 101 Carbon Dioxide Level 31 Anion Gap 16 Blood Urea Nitrogen 100 H Creatinine 1.38 H Glucose Level 92 Calcium Level 11.0 H Phosphorus Level 5.3 H Magnesium Level 2.6 H Medications Current Medications Acetaminophen (Tylenol Tab) 650 mg Q6H PRN PEG PAIN LEVEL 1-3 OR FEVER Last administered on 12/27/16 09:47; Admin Dose 650 MG; Start 11/30/16 at 05:00 Morphine Sulfate (morphine) 2 mg Q4H PRN IV PAIN LEVEL 7-10 Last administered on 12/18/16 09:14; Admin Dose 2 MG; Start 11/30/16 at 05:00 Miscellaneous Information 1 ea NOTE XX ; Start 11/30/16 at 05:00 Glucose (Glutose) 15 gm Q15M PRN PO DECREASED GLUCOSE; Start 11/30/16 at 05:00 Glucose (Glutose) 22.5 gm Q15M PRN PO DECREASED GLUCOSE; Start 11/30/16 at 05: 00 Dextrose (D50w Syringe) 25 ml Q15M PRN IV DECREASED GLUCOSE; Start 11/30/16 at 05:00 Dextrose (D50w Syringe) 50 ml Q15M PRN IV DECREASED GLUCOSE; Start 11/30/16 at 05:00 Glucagon (Glucagen) 1 mg Q15M PRN IM DECREASED GLUCOSE; Start 11/30/16 at 05:00 Glucose (Glutose) 15 gm Q15M PRN BUCCAL DECREASED GLUCOSE; Start 11/30/16 at 05 :00 Metoprolol Tartrate (Lopressor) 2.5 mg Q2H PRN IV heart rate over 110 Last administered on 12/17/16 06:57; Admin Dose 2.5 MG; Start 12/01/16 at 12:00 Collagenase (Santyl) 1 applic DAILY TOP Last administered on 01/01/17 09:57; Admin Dose 1 APPLIC; Start 12/02/16 at 12:00 Collagenase (Santyl) 1 applic DAILY PRN TOP PER WOUND CARE ORDERS; Start at 11:30 Metoprolol Tartrate (Lopressor) 50 mg BID GTB Last administered on 01/01/17 09 :56; Admin Dose 50 MG; Start 12/04/16 at 21:00 Famotidine (Pepcid) 20 mg DAILY GTB Last administered on 01/01/17 09:57; Admin Dose 20 MG; Start 12/05/16 at 09:00 Hydralazine HCl (Apresoline) 10 mg Q6H PRN IV ELEVATED BLOOD PRESSURE Last administered on 12/13/16 18:26; Admin Dose 10 MG; Start 12/06/16 at 16:00 Amikacin Sulfate (Amikacin Iv Per Pharmacy) AMIKACIN PER PHARMACY NOTE XX ; Start 12/10/16 at 19:00 Ketoconazole (Nizoral Shampoo) 1 applic Q12 TOP Last administered on 01/01/17 09:57; Admin Dose 1 APPLIC; Start 12/14/16 at 21:00 Ketoconazole 1 applic 1 applic BID TOP Last administered on 01/01/17 09:57; Admin Dose 1 APPLIC; Start 12/14/16 at 21:00 Amikacin Sulfate/ Sodium Chloride (Amikacin/NS) 150 ml @ 150 mls/hr Q72H IVPB Last administered on 12/27/16 02:12; Admin Dose 150 MLS/HR; Start 12/21/16 at 00 :00; Status Future Hold Fluconazole (Diflucan) 100 mg DAILY PO Last administered on 01/01/17 09:57; Admin Dose 100 MG; Start 12/20/16 at 13:30 Assessment/Plan Chief Complaint/Hosp Course Assessment 1. Acute on chronic hypoxemic respiratory failure on mechanical ventilation via tracheostomy 2. Worsening leukocytosis 3. Mild dehydration 4. Anemia of chronic disease 5. History of CVA 6. Dysphagia with G-tube Plan 1. Continue mechanical ventilation 2. Continue broad-spectrum antibiotics polymicrobial sepsis with multi resistant organisms 3. Tube feeding as tolerated 4. Correction of electrolyte abnormalities 5. DVT GI prophylaxis Disposition Continue telemetry care Very poor prognosis Problems: JO[facility]F [facility]ERRING MD, [facility] January 01, 2017 11:17
[2017-01-01 11:55] LABS: PLATELET COUNT 94 10^3/UL (140-415)
--- NOTE | 2017-01-01 14:39 | PN ---
Date/Time of Note Date/Time of Note DATE: 01/01/17 TIME: 14:29 Assessment/Plan VTE Prophylaxis VTE Prophylaxis Intervention: SCD's Lines/Catheters IV Catheter Type (from Nrsg): PICC Line Central line still needed: Yes (for IV access ) Urinary Cath still in place: Yes Reason Cath still needed: other (indicate) (monitor UOP with ELPIDIO) Assessment/Plan Assessment/Plan 81 yo man with: 1. Sepsis, Bilateral Pneumonia, HCAP vs VAP, CT chest and also confirmed on WBC scan with severe bilateral PNA. Sputum cx polymicrobial with MDRO pseudomonas and Providencia. Patient requiring at least Q3 to 4hrs suctioning for now with copious amount of secretions but a little less. Patient on triple abx with Diflucan po, Amikacin, and Fortaz No other source identified on WBC scan besides PNA bilateral R>L Appreciate ID recs, WBC up to 18K, no change in abx CT chest 12/26 still with unchanged finding of R>>L multifocal PNA with dense infiltrates. CXR unchanged today. No abscess Discussed with Pulmonary, no bronch per Pulmonary ? RML gangrene per Pulmonary ... if so not candidate for surgical intervention...Really poor prognosis Check DIC panel 2. Chronic vent-dependent respiratory failure, stable on Vent, oxygenating well on FiO2 50% currently. With also extensive b/l PNA, large amount of secretions, Off vanco since yesterday due to ELPIDIO Continue Ceftazidime, Diflucan and Amikacin. Appreciate Pulmonary and ID recommendations, leaking trach changed 3. Acute kidney injury, Cherry in place and good UOP, Monitor renal function Follow up renal function closly and starting IVF Agree with d/c Vanco for now and trying to minimize nephrotoxic drugs. 4. Severe anemia on admission, possible GI bleeding, but if so resolved now. Continue PPI. S/p 2 units pRBC yesterday, Hb up to 9.7. Transfuse for Hb<7.5 hb. No evidence for active bleeding for now. Back on Iron supplement. 5. Elevated troponins in setting of a fib with RVR and sepsis, CAD In SR currently and HR controlled with Bblocker, up to 50 mg po bid. Cardiology prn. No anticoag due to Anemia 6. MRSA nares: s/p Bactroban. 7. Sacral Decub, seems to be healing well per RN and wound care but cx polymicrobial with MDRO. Abx adjusted by ID and on wound care protocol. 8. Hypertension: Continue Metoprolol at 50 mg po bid and hold Losartan with ELPIDIO . Prophylaxis: Continue SCDs and Famotidine. Disposition: On contact isolation and Telemetry. WBC scan confirming PNA as only current source of active infection, per ID continue current abx and aggressive pulmonary toilet. Monitor renal function Plan for d/c back to Subacute but may need LTAC as soon if WBC trending down and stable and renal function better . Prognosis remains poor to fair at best. Patient is DNR Subjective 24 Hr Interval Summary Free Text/Dictation Patient remains clinically unchanged with still persistent leukocytosis Still with ELPIDIO so starting IVF Exam/Review of Systems Vital Signs Vitals Vital Signs Date Time Temp Pulse Resp B/P Pulse Ox O2 Delivery O2 Flow Rate FiO2 01/01/17 13:41 69 17 95 40 01/01/17 11:52 98.6 115/75 Intake and Output 12/31/16 12/31/16 01/01/17 15:00 23:00 07:00 Intake Total 350 ml 920 ml Output Total 300 ml 650 ml Balance 50 ml 270 ml Exam Constitutional: alert, frail, non-verbal Respiratory: diminished breath sounds (bilaterally ) Cardiovascular: nl pulses, regular rate and rhythm Gastrointestinal: non-tender, other (tolerating Tube feedings), soft Musculoskeletal: other (muscle wasting bilaterally ) Extremities: normal pulses Neurological: SURFACE MINER II-XII intact, nl mental status, nl speech, nl strength Results Result Diagram: 01/01/17 0630 01/01/17 0630 Results 24 hrs Laboratory Tests Test 01/01/17 06:30 White Blood Count 18.0 #H Red Blood Count 3.47 #L Hemoglobin 9.7 #L Hematocrit 32.1 #L Mean Corpuscular Volume 92.5 Mean Corpuscular Hemoglobin 28.0 L Mean Corpuscular Hemoglobin Concent 30.2 L Red Cell Distribution Width 18.2 H Platelet Count 94 L Mean Platelet Volume 12.0 H Neutrophils % 89.6 H Lymphocytes % 3.4 L Monocytes % 4.4 Eosinophils % 1.7 Basophils % 0.2 Nucleated Red Blood Cells % 0.0 Neutrophils # 16.1 H Lymphocytes # 0.6 L Monocytes # 0.8 Eosinophils # 0.3 Basophils # 0.0 Nucleated Red Blood Cells # 0.0 Differential Comment MANUAL DIFF Sodium Level 143 Potassium Level 4.6 Chloride Level 101 Carbon Dioxide Level 31 Anion Gap 16 Blood Urea Nitrogen 100 H Creatinine 1.38 H Glucose Level 92 Calcium Level 11.0 H Phosphorus Level 5.3 H Magnesium Level 2.6 H Medications Medications Current Medications Acetaminophen (Tylenol Tab) 650 mg Q6H PRN PEG PAIN LEVEL 1-3 OR FEVER Last administered on 12/27/16 09:47; Admin Dose 650 MG; Start 11/30/16 at 05:00 Morphine Sulfate (morphine) 2 mg Q4H PRN IV PAIN LEVEL 7-10 Last administered on 12/18/16 09:14; Admin Dose 2 MG; Start 11/30/16 at 05:00 Miscellaneous Information 1 ea NOTE XX ; Start 11/30/16 at 05:00 Glucose (Glutose) 15 gm Q15M PRN PO DECREASED GLUCOSE; Start 11/30/16 at 05:00 Glucose (Glutose) 22.5 gm Q15M PRN PO DECREASED GLUCOSE; Start 11/30/16 at 05: 00 Dextrose (D50w Syringe) 25 ml Q15M PRN IV DECREASED GLUCOSE; Start 11/30/16 at 05:00 Dextrose (D50w Syringe) 50 ml Q15M PRN IV DECREASED GLUCOSE; Start 11/30/16 at 05:00 Glucagon (Glucagen) 1 mg Q15M PRN IM DECREASED GLUCOSE; Start 11/30/16 at 05:00 Glucose (Glutose) 15 gm Q15M PRN BUCCAL DECREASED GLUCOSE; Start 11/30/16 at 05 :00 Metoprolol Tartrate (Lopressor) 2.5 mg Q2H PRN IV heart rate over 110 Last administered on 12/17/16 06:57; Admin Dose 2.5 MG; Start 12/01/16 at 12:00 Collagenase (Santyl) 1 applic DAILY TOP Last administered on 01/01/17 09:57; Admin Dose 1 APPLIC; Start 12/02/16 at 12:00 Collagenase (Santyl) 1 applic DAILY PRN TOP PER WOUND CARE ORDERS; Start at 11:30 Metoprolol Tartrate (Lopressor) 50 mg BID GTB Last administered on 01/01/17 09 :56; Admin Dose 50 MG; Start 12/04/16 at 21:00 Famotidine (Pepcid) 20 mg DAILY GTB Last administered on 01/01/17 09:57; Admin Dose 20 MG; Start 12/05/16 at 09:00 Hydralazine HCl (Apresoline) 10 mg Q6H PRN IV ELEVATED BLOOD PRESSURE Last administered on 12/13/16 18:26; Admin Dose 10 MG; Start 12/06/16 at 16:00 Amikacin Sulfate (Amikacin Iv Per Pharmacy) AMIKACIN PER PHARMACY NOTE XX ; Start 12/10/16 at 19:00 Ketoconazole (Nizoral Shampoo) 1 applic Q12 TOP Last administered on 01/01/17 09:57; Admin Dose 1 APPLIC; Start 12/14/16 at 21:00 Ketoconazole 1 applic 1 applic BID TOP Last administered on 01/01/17 09:57; Admin Dose 1 APPLIC; Start 12/14/16 at 21:00 Amikacin Sulfate/ Sodium Chloride (Amikacin/NS) 150 ml @ 150 mls/hr Q72H IVPB Last administered on 12/27/16 02:12; Admin Dose 150 MLS/HR; Start 12/21/16 at 00 :00; Status Future Hold Fluconazole 100 mg 100 mg DAILY PO Last administered on 01/01/17 09:57; Admin Dose 100 MG; Start 12/20/16 at 13:30 Sodium Chloride (NS) 1,000 ml @ 75 mls/hr [id number] IV ; Start 01/01/17 at 14:30 CHARLETTE RUHTERFORD January 01, 2017 14:39
--- NOTE | 2017-01-01 15:00 | PN ---
DATE: 01/01/2017 SUBJECTIVE: Patient remains clinically unchanged, very weak and lethargic, no fevers. WBC today 18 with H and H 9.7 and 32.1, platelets 94, neutrophils 89.6, no bands. BUN 100, creatini ne 1.38. MICROBIOLOGY: Sputum culture on 12/27/2016 growing Pseudomonas aeruginosa and Serratia marcescens, susceptible to amikacin. Pseudomonas also susceptible to cefepime. INDWELLINGS: Trach, PEG, Cherry. ANTIMICROBIALS: 1. Amikacin. 2. Fluconazole. 3. Status post vancomycin and Fortaz. PHYSICAL EXAMINATION: GENERAL: This is a cachectic, chronically ill-appearing, elderly man who is lethargic, in no distre ss. HEENT: Head atraumatic, normocephalic. Sclerae anicteric. Buccal mucosa dry. NECK: Supple. Tracheostomy present. CHEST: Rise symmetrical. Breath sounds diminished. HEART: S1, S2. ABDOMEN: Soft, bowel tones present. EXTREMITIES: Without cyanosis. ASSESSMENT: 1. Systemic inflammatory response syndrome with persistent leukocytosis. 2. Severe pneumonia with sputum culture growing multi-drug resistant organisms. 3. Acute renal failure. 4. Anemia. 5. Coronary artery disease. 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 7. Sacral decubitus ulcer, healing. PLAN: The patient is doing poorly with persistent leukocytosis and worsening renal function. He is currently on amikacin. We will add Cefepime 1 gram daily for the pseudomonas coverage. Continue a ggressive pulmonary toilet, monitor renal function. Follow pulmonary recommendations. Dictated By: ELI VALDEZ JOURNALISM INTERN for [facility]AN[facility] CAST[facility]O/MENDOZA Conf#: [id number] DID#: [id number]
[2017-01-01] MEDS: SOD CHLORIDE 0.9% 1,000 ML IV SCH (15:37)
[2017-01-01 16:17] LABS: PLATELET COUNT 93 10^3/UL (140-415)
[2017-01-01 16:36] LABS: INR 1.44; PROTIME 17.6 Sec (12.2-14.2); PT RATIO 1.4
[2017-01-01 16:38] LABS: PARTIAL THROMBOPLASTIN TIME 42.8 Sec (25.0-35.0)
[2017-01-01 16:45] LABS: D-DIMER 2469.66 ng/ml (<460)
[2017-01-01 17:03] LABS: FIBRIN SPLIT PRODUCT <10 ug/ml (<10)
[2017-01-01] MEDS: CEFEPIME 1GM/50 ML (PMX) 50 ML IVPB SCH (18:13)
[2017-01-02] VITALS (24 sets, daily range): BP systolic 103–126; BP diastolic 56–71; PULSE 59–68; RESP 14–20
[2017-01-02] MEDS: morphine 2 MG INJ IV PRN (05:02)
[2017-01-02] MEDS: SOD CHLORIDE 0.9% 1,000 ML IV SCH ×2 (05:07→17:29)
[2017-01-02 07:04] LABS: ADD SCAN DIFF NO
[2017-01-02 07:10] LABS: ABNORMAL IP MESSAGE 1; BASOPHILS % 0.2 % (0.0-2.0); EOSINOPHILS # 0.7 10^3/ul (0.0-0.5); EOSINOPHILS % 5.7 % (0.0-7.0); HEMATOCRIT 32.2 % (42.0-52.0); HEMOGLOBIN 9.6 g/dl (14.0-18.0); LYMPHOCYTES # 0.7 10^3/ul (0.8-2.9); LYMPHOCYTES % 6.2 % (15.0-51.0); MEAN CORPUSCULAR HEMOGLOBIN 27.7 pg (29.0-33.0); MEAN CORPUSCULAR HGB CONC 29.8 g/dl (32.0-37.0); MEAN CORPUSCULAR VOLUME 93.1 fl (82.0-101.0); MEAN PLATELET VOLUME 12.6 fl (7.4-10.4); MONOCYTE # 0.6 10^3/ul (0.3-0.9); MONOCYTES % 4.9 % (0.0-11.0); NEUTROPHIL # 9.9 10^3/ul (1.6-7.5); NEUTROPHILS % 82.4 % (39.0-77.0); PLATELET COUNT 83 10^3/UL (140-415); RED BLOOD COUNT 3.46 10^6/ul (4.70-6.10); RED CELL DISTRIBUTION WIDTH 18.2 % (11.5-14.5)
[2017-01-02 07:33] LABS: CALCIUM 10.9 mg/dl (8.4-10.2); CREATININE 1.55 mg/dl (0.61-1.24); POTASSIUM 4.9 mmol/L (3.5-5.1)
[2017-01-02 07:36] LABS: MAGNESIUM 2.6 mg/dl (1.7-2.5); PHOSPHORUS 5.4 mg/dl (2.5-4.9)
[2017-01-02] MEDS: IPRATROPIUM (HFA) 12.9 GM INHALER INH SCH ×2 (08:04→16:19)
[2017-01-02] MEDS: LEVALBUTEROL (HFA) 15 GM INHALER INH SCH ×2 (08:05→16:19)
[2017-01-02] MEDS: KETOCONAZOLE 2% SHAMPOO 120 ML BTL TOP SCH ×2 (08:44→20:55)
[2017-01-02] MEDS: COLLAGENASE 30 GM TUBE TOP SCH (08:44)
[2017-01-02] MEDS: KETOCONAZOLE 2% 15 GM CR TOP SCH ×2 (08:45→20:55)
[2017-01-02] MEDS: METOPROLOL 25 MG TAB GTB SCH ×2 (08:45→20:54)
[2017-01-02] MEDS: FAMOTIDINE 20 MG TAB GTB SCH (08:45)
[2017-01-02] MEDS: FLUCONAZOLE 100 MG TAB PO SCH (08:46)
[2017-01-02] MEDS: CEFEPIME 1GM/50 ML (PMX) 50 ML IVPB SCH (08:49)
--- NOTE | 2017-01-02 11:30 | CONS ---
Date/Time of Note Date/Time of Note DATE: 01/02/17 TIME: 11:29 Consult Date/Type/Reason Admit Date/Time Nov 30, 2016 at 04:54 Initial Consult Date 12/01/16 Type of Consultation: Pulmonary Ordering Provider: CHARLETTE RUTHERFORD Subjective Condition remains unchanged Improved leukocytosis Objective Vital Signs Date Time Temp Pulse Resp B/P Pulse Ox O2 Delivery O2 Flow Rate FiO2 01/02/17 10:49 40 01/02/17 08:28 64 01/02/17 08:01 97.4 17 113/62 98 Intake and Output 01/01/17 01/01/17 01/02/17 15:00 23:00 07:00 Intake Total 1920 ml Output Total 300 ml 300 ml Balance -300 ml 1620 ml Exam PHYSICAL EXAMINATION GENERAL: Elderly gentleman, on mechanical ventilation appears comfortable VITAL SIGNS: see below. HEENT: Pupils equal, round, and reactive to light. Tracheostomy site clean and intact. CARDIAC: S1, S2, 1/6 systolic ejection murmur CHEST: Diminished air entry bilaterally. ABDOMEN: Mildly distended. Bowel sounds present no guarding or rebound EXTREMITIES: No cyanosis, clubbing edema +1 NEUROLOGIC: unable to assess Results/Medications Result Diagram: 01/02/17 0625 01/02/17 0625 Results 24 hrs Laboratory Tests Test 01/01/17 16:05 01/01/17 20:56 01/02/17 06:25 Platelet Count 93 L 83 L Prothrombin Time 17.6 H Prothrombin Time Ratio 1.4 INR International Normalized Ratio 1.44 Activated Partial Thromboplast Time 42.8 H Thrombin Time 21.0 H Fibrinogen 517.0 H Plasma Fibrin Degradation Products <10 D-Dimer 2469.66 H D-Dimer Comment Bedside Glucose 143 White Blood Count 12.0 #H Red Blood Count 3.46 L Hemoglobin 9.6 L Hematocrit 32.2 L Mean Corpuscular Volume 93.1 Mean Corpuscular Hemoglobin 27.7 L Mean Corpuscular Hemoglobin Concent 29.8 L Red Cell Distribution Width 18.2 H Mean Platelet Volume 12.6 H Neutrophils % 82.4 H Lymphocytes % 6.2 L Monocytes % 4.9 Eosinophils % 5.7 Basophils % 0.2 Nucleated Red Blood Cells % 0.0 Neutrophils # 9.9 H Lymphocytes # 0.7 L Monocytes # 0.6 Eosinophils # 0.7 H Basophils # 0.0 Nucleated Red Blood Cells # 0.0 Sodium Level 140 Potassium Level 4.9 Chloride Level 103 Carbon Dioxide Level 30 Anion Gap 12 Blood Urea Nitrogen 99 H Creatinine 1.55 H Glucose Level 114 Calcium Level 10.9 H Phosphorus Level 5.4 H Magnesium Level 2.6 H Medications Current Medications Acetaminophen (Tylenol Tab) 650 mg Q6H PRN PEG PAIN LEVEL 1-3 OR FEVER Last administered on 12/27/16 09:47; Admin Dose 650 MG; Start 11/30/16 at 05:00 Morphine Sulfate (morphine) 2 mg Q4H PRN IV PAIN LEVEL 7-10 Last administered on 01/02/17 05:02; Admin Dose 2 MG; Start 11/30/16 at 05:00 Miscellaneous Information 1 ea NOTE XX ; Start 11/30/16 at 05:00 Glucose (Glutose) 15 gm Q15M PRN PO DECREASED GLUCOSE; Start 11/30/16 at 05:00 Glucose (Glutose) 22.5 gm Q15M PRN PO DECREASED GLUCOSE; Start 11/30/16 at 05: 00 Dextrose (D50w Syringe) 25 ml Q15M PRN IV DECREASED GLUCOSE; Start 11/30/16 at 05:00 Dextrose (D50w Syringe) 50 ml Q15M PRN IV DECREASED GLUCOSE; Start 11/30/16 at 05:00 Glucagon (Glucagen) 1 mg Q15M PRN IM DECREASED GLUCOSE; Start 11/30/16 at 05:00 Glucose (Glutose) 15 gm Q15M PRN BUCCAL DECREASED GLUCOSE; Start 11/30/16 at 05 :00 Metoprolol Tartrate (Lopressor) 2.5 mg Q2H PRN IV heart rate over 110 Last administered on 12/17/16 06:57; Admin Dose 2.5 MG; Start 12/01/16 at 12:00 Collagenase (Santyl) 1 applic DAILY TOP Last administered on 01/02/17 08:44; Admin Dose 1 APPLIC; Start 12/02/16 at 12:00 Collagenase (Santyl) 1 applic DAILY PRN TOP PER WOUND CARE ORDERS; Start at 11:30 Metoprolol Tartrate (Lopressor) 50 mg BID GTB Last administered on 01/02/17 08 :45; Admin Dose 50 MG; Start 12/04/16 at 21:00 Famotidine (Pepcid) 20 mg DAILY GTB Last administered on 01/02/17 08:45; Admin Dose 20 MG; Start 12/05/16 at 09:00 Hydralazine HCl (Apresoline) 10 mg Q6H PRN IV ELEVATED BLOOD PRESSURE Last administered on 12/13/16 18:26; Admin Dose 10 MG; Start 12/06/16 at 16:00 Amikacin Sulfate (Amikacin Iv Per Pharmacy) AMIKACIN PER PHARMACY NOTE XX ; Start 12/10/16 at 19:00 Ketoconazole (Nizoral Shampoo) 1 applic Q12 TOP Last administered on 01/02/17 08:44; Admin Dose 1 APPLIC; Start 12/14/16 at 21:00 Ketoconazole 1 applic 1 applic BID TOP Last administered on 01/02/17 08:45; Admin Dose 1 APPLIC; Start 12/14/16 at 21:00 Amikacin Sulfate/ Sodium Chloride (Amikacin/NS) 150 ml @ 150 mls/hr Q72H IVPB Last administered on 12/27/16 02:12; Admin Dose 150 MLS/HR; Start 12/21/16 at 00 :00; Status Future Hold Fluconazole 100 mg 100 mg DAILY PO Last administered on 01/02/17 08:46; Admin Dose 100 MG; Start 12/20/16 at 13:30 Sodium Chloride 1,000 ml @ 75 mls/hr [id number] IV Last administered on 05:07; Admin Dose 75 MLS/HR; Start 01/01/17 at 14:30 Cefepime HCl (Maxipime 1gm/50 ml (Pmx)) 50 ml @ 100 mls/hr DAILY IVPB Last administered on 01/02/17 08:49; Admin Dose 100 MLS/HR; Start 01/01/17 at 16:00 Assessment/Plan Chief Complaint/Hosp Course Assessment 1. Acute on chronic hypoxemic respiratory failure on mechanical ventilation via tracheostomy 2. Improved leukocytosis 3. Mild dehydration 4. Anemia of chronic disease 5. History of CVA 6. Dysphagia with G-tube Plan 1. Continue mechanical ventilation 2. Continue broad-spectrum antibiotics polymicrobial sepsis with multi resistant organisms 3. Tube feeding as tolerated 4. Correction of electrolyte abnormalities 5. DVT GI prophylaxis Disposition Continue telemetry care Very poor prognosis Discharge planning Problems: JOSEF HERRING MD, FCCP January 02, 2017 11:30
--- NOTE | 2017-01-02 14:19 | CONS ---
Date/Time of Note Date/Time of Note DATE: 01/02/17 TIME: 14:18 Assessment/Plan Assessment/Plan Chief Complaint/Hosp Course SUBJECTIVE: Patient remains clinically unchanged, lethargic, no fevers. MICROBIOLOGY: Sputum culture on 12/27/2016 growing Pseudomonas aeruginosa and Serratia marcescens, susceptible to amikacin. Pseudomonas also susceptible to cefepime. INDWELLINGS: Trach, PEG, Cherry. ANTIMICROBIALS: 1. Amikacin. 2. Fluconazole. 3. Cefepime. PHYSICAL EXAMINATION: GENERAL: This is a cachectic, chronically ill-appearing, elderly man who is lethargic, in no distress. HEENT: Head atraumatic, normocephalic. Sclerae anicteric. Buccal mucosa dry. NECK: Supple. Tracheostomy present. CHEST: Rise symmetrical. Breath sounds diminished. HEART: S1, S2. ABDOMEN: Soft, bowel tones present. EXTREMITIES: Without cyanosis. ASSESSMENT: 1. Systemic inflammatory response syndrome with persistent leukocytosis. 2. Severe pneumonia with sputum culture growing multi-drug resistant organisms. 3. Acute renal failure. 4. Anemia. 5. Coronary artery disease. 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 7. Sacral decubitus ulcer, healing. PLAN: Remains unchanged, continue abx, monitor renal f-n, f/u pulmonary rec-s [facility] staff Problems: Consultation Date/Type/Reason Admit Date/Time Nov 30, 2016 at 04:54 Initial Consult Date 12/01/16 Type of Consultation: ID Referring Provider: CHARLETTE RUTHERFORD Exam/Review of Systems Vital Signs Vitals Vital Signs Date Time Temp Pulse Resp B/P Pulse Ox O2 Delivery O2 Flow Rate FiO2 01/02/17 12:20 66 01/02/17 11:40 16 96 40 01/02/17 11:38 97.9 113/58 Intake and Output 01/01/17 01/01/17 01/02/17 15:00 23:00 07:00 Intake Total 1920 ml Output Total 300 ml 300 ml Balance -300 ml 1620 ml Results Result Diagram: 01/02/17 0625 01/02/17 0625 Results 24 hrs Laboratory Tests Test 01/01/17 16:05 01/01/17 20:56 01/02/17 06:25 01/02/17 11:47 Platelet Count 93 L 83 L Prothrombin Time 17.6 H Prothrombin Time Ratio 1.4 INR International Normalized Ratio 1.44 Activated Partial Thromboplast Time 42.8 H Thrombin Time 21.0 H Fibrinogen 517.0 H Plasma Fibrin Degradation Products <10 D-Dimer 2469.66 H D-Dimer Comment Bedside Glucose 143 White Blood Count 12.0 #H Red Blood Count 3.46 L Hemoglobin 9.6 L Hematocrit 32.2 L Mean Corpuscular Volume 93.1 Mean Corpuscular Hemoglobin 27.7 L Mean Corpuscular Hemoglobin Concent 29.8 L Red Cell Distribution Width 18.2 H Mean Platelet Volume 12.6 H Neutrophils % 82.4 H Lymphocytes % 6.2 L Monocytes % 4.9 Eosinophils % 5.7 Basophils % 0.2 Nucleated Red Blood Cells % 0.0 Neutrophils # 9.9 H Lymphocytes # 0.7 L Monocytes # 0.6 Eosinophils # 0.7 H Basophils # 0.0 Nucleated Red Blood Cells # 0.0 Sodium Level 140 Potassium Level 4.9 Chloride Level 103 Carbon Dioxide Level 30 Anion Gap 12 Blood Urea Nitrogen 99 H Creatinine 1.55 H Glucose Level 114 Calcium Level 10.9 H Phosphorus Level 5.4 H Magnesium Level 2.6 H Random Amikacin Level Lab Scanned Report REFERENCE LAB Medications Medications Current Medications Acetaminophen (Tylenol Tab) 650 mg Q6H PRN PEG PAIN LEVEL 1-3 OR FEVER Last administered on 12/27/16 09:47; Admin Dose 650 MG; Start 11/30/16 at 05:00 Morphine Sulfate (morphine) 2 mg Q4H PRN IV PAIN LEVEL 7-10 Last administered on 01/02/17 05:02; Admin Dose 2 MG; Start 11/30/16 at 05:00 Miscellaneous Information 1 ea NOTE XX ; Start 11/30/16 at 05:00 Glucose (Glutose) 15 gm Q15M PRN PO DECREASED GLUCOSE; Start 11/30/16 at 05:00 Glucose (Glutose) 22.5 gm Q15M PRN PO DECREASED GLUCOSE; Start 11/30/16 at 05: 00 Dextrose (D50w Syringe) 25 ml Q15M PRN IV DECREASED GLUCOSE; Start 11/30/16 at 05:00 Dextrose (D50w Syringe) 50 ml Q15M PRN IV DECREASED GLUCOSE; Start 11/30/16 at 05:00 Glucagon (Glucagen) 1 mg Q15M PRN IM DECREASED GLUCOSE; Start 11/30/16 at 05:00 Glucose (Glutose) 15 gm Q15M PRN BUCCAL DECREASED GLUCOSE; Start 11/30/16 at 05 :00 Metoprolol Tartrate (Lopressor) 2.5 mg Q2H PRN IV heart rate over 110 Last administered on 12/17/16 06:57; Admin Dose 2.5 MG; Start 12/01/16 at 12:00 Collagenase (Santyl) 1 applic DAILY TOP Last administered on 01/02/17 08:44; Admin Dose 1 APPLIC; Start 12/02/16 at 12:00 Collagenase (Santyl) 1 applic DAILY PRN TOP PER WOUND CARE ORDERS; Start at 11:30 Metoprolol Tartrate (Lopressor) 50 mg BID GTB Last administered on 01/02/17 08 :45; Admin Dose 50 MG; Start 12/04/16 at 21:00 Famotidine (Pepcid) 20 mg DAILY GTB Last administered on 01/02/17 08:45; Admin Dose 20 MG; Start 12/05/16 at 09:00 Hydralazine HCl (Apresoline) 10 mg Q6H PRN IV ELEVATED BLOOD PRESSURE Last administered on 12/13/16 18:26; Admin Dose 10 MG; Start 12/06/16 at 16:00 Amikacin Sulfate (Amikacin Iv Per Pharmacy) AMIKACIN PER PHARMACY NOTE XX ; Start 12/10/16 at 19:00 Ketoconazole (Nizoral Shampoo) 1 applic Q12 TOP Last administered on 01/02/17 08:44; Admin Dose 1 APPLIC; Start 12/14/16 at 21:00 Ketoconazole 1 applic 1 applic BID TOP Last administered on 01/02/17 08:45; Admin Dose 1 APPLIC; Start 12/14/16 at 21:00 Amikacin Sulfate/ Sodium Chloride (Amikacin/NS) 150 ml @ 150 mls/hr Q72H IVPB Last administered on 12/27/16 02:12; Admin Dose 150 MLS/HR; Start 12/21/16 at 00 :00; Status Future Hold Fluconazole 100 mg 100 mg DAILY PO Last administered on 01/02/17 08:46; Admin Dose 100 MG; Start 12/20/16 at 13:30 Sodium Chloride 1,000 ml @ 75 mls/hr [id number] IV Last administered on 05:07; Admin Dose 75 MLS/HR; Start 01/01/17 at 14:30 Cefepime HCl (Maxipime 1gm/50 ml (Pmx)) 50 ml @ 100 mls/hr DAILY IVPB Last administered on 01/02/17 08:49; Admin Dose 100 MLS/HR; Start 01/01/17 at 16:00 ELI VALDEZ NP January 02, 2017 14:19
--- NOTE | 2017-01-02 16:00 | PN ---
Date/Time of Note Date/Time of Note DATE: 01/02/17 TIME: 15:53 Assessment/Plan VTE Prophylaxis VTE Prophylaxis Intervention: SCD's Lines/Catheters IV Catheter Type (from Nrsg): PICC Line Central line still needed: Yes (for IV access ) Urinary Cath still in place: Yes Reason Cath still needed: other (indicate) (to monitor OUP ) Assessment/Plan Assessment/Plan 81 yo man with: 1. Sepsis, Bilateral Pneumonia, HCAP vs VAP, CT chest and also confirmed on WBC scan with severe bilateral PNA. Sputum cx polymicrobial with MDRO pseudomonas and Providencia. Patient requiring at least Q3 to 4hrs suctioning for now with copious amount of secretions but a little less. Patient on triple abx with Diflucan po, Amikacin, and Fortaz No other source identified on WBC scan besides PNA bilateral R>L Appreciate ID recs, WBC up to 18K, no change in abx CT chest 12/26 still with unchanged finding of R>>L multifocal PNA with dense infiltrates. CXR unchanged today. No abscess Discussed with Pulmonary, no bronch per Pulmonary ? RML gangrene per Pulmonary ... if so not candidate for surgical intervention...Really poor prognosis No DIC 2. Chronic vent-dependent respiratory failure, stable on Vent, oxygenating well on FiO2 50% currently. With also extensive b/l PNA, large amount of secretions, Off vanco since yesterday due to ELPIDIO Continue Ceftazidime, Diflucan and Amikacin. Appreciate Pulmonary and ID recommendations, leaking trach changed 3. Acute kidney injury, Cherry in place and good UOP, Still with BUN elevated and creat still up to 1.5 today Monitor renal function closely, continue IVF for now Trying to minimize nephrotoxic drugs but needs Amikacin for now 4. Severe anemia on admission, possible GI bleeding, but if so resolved now. Continue PPI. S/p 2 units pRBC yesterday, Hb up to 9.7 and stable so far . Transfuse for Hb<7.5 hb. No evidence for active bleeding for now. Back on Iron supplement. 5. Thrombocytopenia: monitor, ? due to abx 6. Elevated troponins in setting of a fib with RVR and sepsis, CAD In SR currently and HR controlled with Bblocker, up to 50 mg po bid. Cardiology prn. No anticoag due to Anemia 7. MRSA nares: s/p Bactroban. 8. Sacral Decub, seems to be healing well per RN and wound care but cx polymicrobial with MDRO. Abx adjusted by ID and on wound care protocol. 9. Hypertension: Continue Metoprolol at 50 mg po bid and hold Losartan with ELPIDIO . Prophylaxis: Continue SCDs and Famotidine. Disposition: On contact isolation and Telemetry. WBC scan confirming PNA as only current source of active infection, per ID continue current abx and aggressive pulmonary toilet. Monitor renal function Plan for d/c back to Subacute but may need LTAC as soon if WBC trending down and stable and renal function better . Prognosis remains poor to fair at best. Patient is DNR Subjective 24 Hr Interval Summary Free Text/Dictation Patient essentially clinically unchanged Afebrile but still with unchanged CXR Lethargic and mostly sleeping through the day Evaluated by Trace today Exam/Review of Systems Vital Signs Vitals Vital Signs Date Time Temp Pulse Resp B/P Pulse Ox O2 Delivery O2 Flow Rate FiO2 01/02/17 15:14 97.6 67 16 105/56 98 01/02/17 11:40 40 Intake and Output 01/01/17 01/01/17 01/02/17 15:00 23:00 07:00 Intake Total 1920 ml Output Total 300 ml 300 ml Balance -300 ml 1620 ml Exam Constitutional: frail, non-verbal, other (lethargic ) Respiratory: diminished breath sounds (bilaterally ), other (on vent with FiO2 40%) Cardiovascular: nl pulses, regular rate and rhythm Gastrointestinal: non-tender, soft Musculoskeletal: nl extremities to inspection Extremities: edema (+1 anasarca ), normal pulses, other (no clubbing or cyanosis ) Neurological: lethargic, other (quadriparesis ) Results Result Diagram: 01/02/17 0625 01/02/17 0625 Results 24 hrs Laboratory Tests Test 01/01/17 16:05 01/01/17 20:56 01/02/17 06:25 01/02/17 11:47 Platelet Count 93 L 83 L Prothrombin Time 17.6 H Prothrombin Time Ratio 1.4 INR International Normalized Ratio 1.44 Activated Partial Thromboplast Time 42.8 H Thrombin Time 21.0 H Fibrinogen 517.0 H Plasma Fibrin Degradation Products <10 D-Dimer 2469.66 H D-Dimer Comment Bedside Glucose 143 White Blood Count 12.0 #H Red Blood Count 3.46 L Hemoglobin 9.6 L Hematocrit 32.2 L Mean Corpuscular Volume 93.1 Mean Corpuscular Hemoglobin 27.7 L Mean Corpuscular Hemoglobin Concent 29.8 L Red Cell Distribution Width 18.2 H Mean Platelet Volume 12.6 H Neutrophils % 82.4 H Lymphocytes % 6.2 L Monocytes % 4.9 Eosinophils % 5.7 Basophils % 0.2 Nucleated Red Blood Cells % 0.0 Neutrophils # 9.9 H Lymphocytes # 0.7 L Monocytes # 0.6 Eosinophils # 0.7 H Basophils # 0.0 Nucleated Red Blood Cells # 0.0 Sodium Level 140 Potassium Level 4.9 Chloride Level 103 Carbon Dioxide Level 30 Anion Gap 12 Blood Urea Nitrogen 99 H Creatinine 1.55 H Glucose Level 114 Calcium Level 10.9 H Phosphorus Level 5.4 H Magnesium Level 2.6 H Random Amikacin Level Lab Scanned Report REFERENCE LAB Medications Medications Current Medications Acetaminophen (Tylenol Tab) 650 mg Q6H PRN PEG PAIN LEVEL 1-3 OR FEVER Last administered on 12/27/16 09:47; Admin Dose 650 MG; Start 11/30/16 at 05:00 Morphine Sulfate (morphine) 2 mg Q4H PRN IV PAIN LEVEL 7-10 Last administered on 01/02/17 05:02; Admin Dose 2 MG; Start 11/30/16 at 05:00 Miscellaneous Information 1 ea NOTE XX ; Start 11/30/16 at 05:00 Glucose (Glutose) 15 gm Q15M PRN PO DECREASED GLUCOSE; Start 11/30/16 at 05:00 Glucose (Glutose) 22.5 gm Q15M PRN PO DECREASED GLUCOSE; Start 11/30/16 at 05: 00 Dextrose (D50w Syringe) 25 ml Q15M PRN IV DECREASED GLUCOSE; Start 11/30/16 at 05:00 Dextrose (D50w Syringe) 50 ml Q15M PRN IV DECREASED GLUCOSE; Start 11/30/16 at 05:00 Glucagon (Glucagen) 1 mg Q15M PRN IM DECREASED GLUCOSE; Start 11/30/16 at 05:00 Glucose (Glutose) 15 gm Q15M PRN BUCCAL DECREASED GLUCOSE; Start 11/30/16 at 05 :00 Metoprolol Tartrate (Lopressor) 2.5 mg Q2H PRN IV heart rate over 110 Last administered on 12/17/16 06:57; Admin Dose 2.5 MG; Start 12/01/16 at 12:00 Collagenase (Santyl) 1 applic DAILY TOP Last administered on 01/02/17 08:44; Admin Dose 1 APPLIC; Start 12/02/16 at 12:00 Collagenase (Santyl) 1 applic DAILY PRN TOP PER WOUND CARE ORDERS; Start at 11:30 Metoprolol Tartrate (Lopressor) 50 mg BID GTB Last administered on 01/02/17 08 :45; Admin Dose 50 MG; Start 12/04/16 at 21:00 Famotidine (Pepcid) 20 mg DAILY GTB Last administered on 01/02/17 08:45; Admin Dose 20 MG; Start 12/05/16 at 09:00 Hydralazine HCl (Apresoline) 10 mg Q6H PRN IV ELEVATED BLOOD PRESSURE Last administered on 12/13/16 18:26; Admin Dose 10 MG; Start 12/06/16 at 16:00 Amikacin Sulfate (Amikacin Iv Per Pharmacy) AMIKACIN PER PHARMACY NOTE XX ; Start 12/10/16 at 19:00 Ketoconazole (Nizoral Shampoo) 1 applic Q12 TOP Last administered on 01/02/17 08:44; Admin Dose 1 APPLIC; Start 12/14/16 at 21:00 Ketoconazole 1 applic 1 applic BID TOP Last administered on 01/02/17 08:45; Admin Dose 1 APPLIC; Start 12/14/16 at 21:00 Amikacin Sulfate/ Sodium Chloride (Amikacin/NS) 150 ml @ 150 mls/hr Q72H IVPB Last administered on 12/27/16 02:12; Admin Dose 150 MLS/HR; Start 12/21/16 at 00 :00; Status Future Hold Fluconazole 100 mg 100 mg DAILY PO Last administered on 01/02/17 08:46; Admin Dose 100 MG; Start 12/20/16 at 13:30 Sodium Chloride 1,000 ml @ 75 mls/hr [id number] IV Last administered on 05:07; Admin Dose 75 MLS/HR; Start 01/01/17 at 14:30 Cefepime HCl (Maxipime 1gm/50 ml (Pmx)) 50 ml @ 100 mls/hr DAILY IVPB Last administered on 01/02/17t 08:49; Admin Dose 100 MLS/HR; Start 01/01/17 at 16:00 CHARLETTE RUTHERFORD January 02, 2017 16:00
[2017-01-03] VITALS (22 sets, daily range): BP systolic 101–157; BP diastolic 56–97; PULSE 56–64; RESP 14–18
[2017-01-03] MEDS: IPRATROPIUM (HFA) 12.9 GM INHALER INH SCH ×4 (00:49→23:30)
[2017-01-03] MEDS: LEVALBUTEROL (HFA) 15 GM INHALER INH SCH ×4 (00:50→23:30)
[2017-01-03 06:16] LABS: ADD SCAN DIFF NO
[2017-01-03] MEDS: SOD CHLORIDE 0.9% 1,000 ML IV SCH ×2 (06:40→21:15)
[2017-01-03 06:41] LABS: ABNORMAL IP MESSAGE 1; HEMATOCRIT 31.8 % (42.0-52.0); HEMOGLOBIN 9.6 g/dl (14.0-18.0); MEAN CORPUSCULAR HEMOGLOBIN 28.1 pg (29.0-33.0); MEAN CORPUSCULAR HGB CONC 30.2 g/dl (32.0-37.0); MEAN PLATELET VOLUME 12.7 fl (7.4-10.4); PLATELET COUNT 73 10^3/UL (140-415); RED BLOOD COUNT 3.42 10^6/ul (4.70-6.10); RED CELL DISTRIBUTION WIDTH 17.9 % (11.5-14.5); WHITE BLOOD COUNT 12.6 10^3/ul (4.8-10.8)
[2017-01-03 07:05] LABS: MAGNESIUM 2.4 mg/dl (1.7-2.5); PHOSPHORUS 6.1 mg/dl (2.5-4.9)
[2017-01-03 07:08] LABS: CALCIUM 10.7 mg/dl (8.4-10.2); CREATININE 1.55 mg/dl (0.61-1.24); POTASSIUM 4.9 mmol/L (3.5-5.1)
[2017-01-03] MEDS: METOPROLOL 25 MG TAB GTB SCH ×2 (08:53→21:00)
[2017-01-03] MEDS: CEFEPIME 1GM/50 ML (PMX) 50 ML IVPB SCH (09:02)
[2017-01-03] MEDS: FAMOTIDINE 20 MG TAB GTB SCH (09:03)
[2017-01-03] MEDS: FLUCONAZOLE 100 MG TAB PO SCH (09:03)
[2017-01-03] MEDS: KETOCONAZOLE 2% 15 GM CR TOP SCH ×2 (09:03→21:19)
[2017-01-03] MEDS: KETOCONAZOLE 2% SHAMPOO 120 ML BTL TOP SCH ×2 (09:04→21:18)
[2017-01-03] MEDS: COLLAGENASE 30 GM TUBE TOP SCH (09:04)
[2017-01-03 09:31] LABS: EOSINOPHILS # 0.8 10^3/ul (0.0-0.5); LYMPHOCYTES # 0.5 10^3/ul (0.8-2.9); MONOCYTE # 0.5 10^3/ul (0.3-0.9); NEUTROPHIL # 8.7 10^3/ul (1.6-7.5); PLATELET ESTIMATE PLT APPEAR DECREASED
--- NOTE | 2017-01-03 11:38 | PN ---
Date/Time of Note Date/Time of Note DATE: 01/03/17 TIME: 11:38 Assessment/Plan VTE Prophylaxis VTE Prophylaxis Intervention: SCD's Lines/Catheters IV Catheter Type (from Nrs): PICC Line Central line still needed: Yes (fr IV access ) Urinary Cath still in place: Yes Reason Cath still needed: other (indicate) (monitor UOP ) Assessment/Plan Assessment/Plan 81 yo man with: 1. Sepsis, Bilateral Pneumonia, HCAP vs VAP, CT chest and also confirmed on WBC scan with severe bilateral PNA. Sputum cx polymicrobial with MDRO pseudomonas and Providencia. Patient requiring at least Q3 to 4hrs suctioning for now with copious amount of secretions but a little less. Patient on triple abx with Diflucan and Cefepime. Will d/c Amikacin and put on inhaled Colistin due to ELPIDIO and thrombocytopenia. No other source identified on WBC scan besides PNA bilateral R>L Appreciate ID recs, WBC 12K today CT chest 12/26 still with unchanged finding of R>>L multifocal PNA with dense infiltrates. CXR unchanged, no improvement. No abscess Discussed with Pulmonary, no bronch per Pulmonary, ? RML gangrene per Pulmonary ... if so not candidate for surgical intervention...Extremely poor prognosis No DIC 2. Chronic vent-dependent respiratory failure, stable on Vent, oxygenating well on FiO2 50% currently. With also extensive b/l PNA, large amount of secretions, Off vanco since yesterday due to ELPIDIO Continue Cefepime, Diflucan and inhaled Colistin now, off Amikacin due to side effects. Appreciate Pulmonary and ID recommendations, leaking trach changed 3. Acute kidney injury, Cherry in place and good UOP, Still with BUN up to 100's and creat still up to 1.5 today Monitor renal function closely, continue IVF for now Trying to minimize nephrotoxic drugs and d/c Amikacin for now, patient put on inhaled Colistin 4. Severe anemia on admission, possible GI bleeding, but if so resolved now. Continue PPI. S/p 2 units pRBC yesterday, Hb up to 9.3 and stable so far . Transfuse for Hb<7.5 hb. No evidence for active bleeding for now. Back on Iron supplement. 5. Thrombocytopenia: monitor, worsening and likely 2ry to ? due to abx, especially Amikacin 6. Elevated troponins in setting of a fib with RVR and sepsis, CAD In SR currently and HR controlled with Bblocker, up to 50 mg po bid. Cardiology prn. No anticoag due to Anemia 7. MRSA nares: s/p Bactroban. 8. Sacral Decub, seems to be healing well per RN and wound care but cx polymicrobial with MDRO. Abx adjusted by ID and on wound care protocol. 9. Hypertension: Continue Metoprolol at 50 mg po bid and off Losartan with ELPIDIO . Prophylaxis: Continue SCDs and Famotidine. Disposition: On contact isolation and Telemetry. WBC scan confirming PNA as only current source of active infection, per ID continue current abx and aggressive pulmonary toilet. Monitor renal function . Discussed with at bedside, current clinical status worsening and extremely poor prognosis. Hospice or comfort measures may be the only option left at this time. Plan for d/c back to Subacute but may need LTAC and hopefully family will be agreeable to proceed with comfort measures and in that case will plan to d/c to Subacute with hospice on board. Patient is DNR Prognosis remains poor. Subjective 24 Hr Interval Summary Free Text/Dictation Patient lethargic and barely arousable BUN up to 100 with ELPIDIO and also with ongoing thrombocytopenia likely due to abx Afebrile and WBC now down but with additional ELPIDIO and organ dysfunction prognosis remains poor with high risk fo imminent demise no matter which level of care he is in ... Patient is DNR Discuss with ID and patient 's wfe, will d/c Amikacin and move towards comfort measures, she wants to have family meeting on Friday but understands that if patient declines further this no heroics of escalation of care will be attempted Exam/Review of Systems Vital Signs Vitals Vital Signs Date Time Temp Pulse Resp B/P Pulse Ox O2 Delivery O2 Flow Rate FiO2 01/03/17 08:00 56 01/03/17 07:15 16 92 40 01/03/17 06:56 97.4 101/56 Intake and Output 01/02/17 01/02/17 01/03/17 15:00 23:00 07:00 Intake Total 1020 ml 1940 ml Output Total 950 ml 500 ml Balance 70 ml 1440 ml Exam Constitutional: frail, non-verbal, other (lethargic ) Respiratory: diminished breath sounds, other (on 40% FiO2 ) Cardiovascular: nl pulses, regular rate and rhythm Gastrointestinal: non-tender, soft Musculoskeletal: other (muscle wasting ) Extremities: normal pulses Neurological: lethargic, other (generalised weakness ) Results Result Diagram: 01/03/17 0446 01/03/17 0530 Results 24 hrs Laboratory Tests Test 01/02/17 11:47 01/03/17 04:46 01/03/17 05:30 01/03/17 05:45 Lab Scanned Report REFERENCE LAB White Blood Count 12.6 H Red Blood Count 3.42 L Hemoglobin 9.6 L Hematocrit 31.8 L Mean Corpuscular Volume 93.0 Mean Corpuscular Hemoglobin 28.1 L Mean Corpuscular Hemoglobin Concent 30.2 L Red Cell Distribution Width 17.9 H Platelet Count 73 L Mean Platelet Volume 12.7 H Neutrophils % 69.0 Band Neutrophils % 17.0 H Lymphocytes % 4.0 L Monocytes % 4.0 Eosinophils % 6.0 Neutrophils # 8.7 H Lymphocytes # 0.5 L Monocytes # 0.5 Eosinophils # 0.8 H Platelet Estimate PLT APPEAR DECREASED Sodium Level 137 Potassium Level 4.9 Chloride Level 104 Carbon Dioxide Level 26 Anion Gap 12 Blood Urea Nitrogen 105 H Creatinine 1.55 H Glucose Level 139 Calcium Level 10.7 H Phosphorus Level 6.1 H Magnesium Level 2.4 Medications Medications Current Medications Acetaminophen (Tylenol Tab) 650 mg Q6H PRN PEG PAIN LEVEL 1-3 OR FEVER Last administered on 12/27/16 09:47; Admin Dose 650 MG; Start 11/30/16 at 05:00 Morphine Sulfate (morphine) 2 mg Q4H PRN IV PAIN LEVEL 7-10 Last administered on 01/02/17 05:02; Admin Dose 2 MG; Start 11/30/16 at 05:00 Miscellaneous Information 1 ea NOTE XX ; Start 11/30/16 at 05:00 Glucose (Glutose) 15 gm Q15M PRN PO DECREASED GLUCOSE; Start 11/30/16 at 05:00 Glucose (Glutose) 22.5 gm Q15M PRN PO DECREASED GLUCOSE; Start 11/30/16 at 05: 00 Dextrose (D50w Syringe) 25 ml Q15M PRN IV DECREASED GLUCOSE; Start 11/30/16 at 05:00 Dextrose (D50w Syringe) 50 ml Q15M PRN IV DECREASED GLUCOSE; Start 11/30/16 at 05:00 Glucagon (Glucagen) 1 mg Q15M PRN IM DECREASED GLUCOSE; Start 11/30/16 at 05:00 Glucose (Glutose) 15 gm Q15M PRN BUCCAL DECREASED GLUCOSE; Start 11/30/16 at 05 :00 Metoprolol Tartrate (Lopressor) 2.5 mg Q2H PRN IV heart rate over 110 Last administered on 12/17/16 06:57; Admin Dose 2.5 MG; Start 12/01/16 at 12:00 Collagenase (Santyl) 1 applic DAILY TOP Last administered on 01/03/17 09:04; Admin Dose 1 APPLIC; Start 12/02/16 at 12:00 Collagenase (Santyl) 1 applic DAILY PRN TOP PER WOUND CARE ORDERS; Start at 11:30 Metoprolol Tartrate (Lopressor) 50 mg BID GTB Last administered on 01/02/17 20 :54; Admin Dose 50 MG; Start 12/04/16 at 21:00 Famotidine (Pepcid) 20 mg DAILY GTB Last administered on 01/03/17 09:03; Admin Dose 20 MG; Start 12/05/16 at 09:00 Hydralazine HCl (Apresoline) 10 mg Q6H PRN IV ELEVATED BLOOD PRESSURE Last administered on 12/13/16 18:26; Admin Dose 10 MG; Start 12/06/16 at 16:00 Amikacin Sulfate (Amikacin Iv Per Pharmacy) AMIKACIN PER PHARMACY NOTE XX ; Start 12/10/16 at 19:00 Ketoconazole (Nizoral Shampoo) 1 applic Q12 TOP Last administered on 01/03/17 09:04; Admin Dose 1 APPLIC; Start 12/14/16 at 21:00 Ketoconazole 1 applic 1 applic BID TOP Last administered on 01/03/17 09:03; Admin Dose 1 APPLIC; Start 12/14/16 at 21:00 Amikacin Sulfate/ Sodium Chloride (Amikacin/NS) 150 ml @ 150 mls/hr Q72H IVPB Last administered on 12/27/16 02:12; Admin Dose 150 MLS/HR; Start 12/21/16 at 00 :00; Status Future Hold Fluconazole 100 mg 100 mg DAILY PO Last administered on 01/03/17 09:03; Admin Dose 100 MG; Start 12/20/16 at 13:30 Sodium Chloride 1,000 ml @ 75 mls/hr [id number] IV Last administered on 06:40; Admin Dose 75 MLS/HR; Start 01/01/17 at 14:30 Cefepime HCl (Maxipime 1gm/50 ml (Pmx)) 50 ml @ 100 mls/hr DAILY IVPB Last administered on 01/03/17 09:02; Admin Dose 100 MLS/HR; Start 01/01/17 at 16:00 CHARLETTE RUTHERFORD January 03, 2017 11:38
--- NOTE | 2017-01-03 14:40 | CONS ---
Date/Time of Note Date/Time of Note DATE: 01/03/17 TIME: 14:39 Consult Date/Type/Reason Admit Date/Time Nov 30, 2016 at 04:54 Initial Consult Date 12/01/16 Type of Consultation: Pulmonary Ordering Provider: CHARLETTE RUTHERFORD Subjective Somnolent on mechanical ventilation Objective Vital Signs Date Time Temp Pulse Resp B/P Pulse Ox O2 Delivery O2 Flow Rate FiO2 01/03/17 13:47 68 14 93 40 01/03/17 11:41 97.9 113/56 Intake and Output 01/02/17 01/02/17 01/03/17 15:00 23:00 07:00 Intake Total 1020 ml 1940 ml Output Total 950 ml 500 ml Balance 70 ml 1440 ml Exam PHYSICAL EXAMINATION GENERAL: Elderly gentleman, on mechanical ventilation appears comfortable VITAL SIGNS: see below. HEENT: Pupils equal, round, and reactive to light. Tracheostomy site clean and intact. CARDIAC: S1, S2, 1/6 systolic ejection murmur CHEST: Diminished air entry bilaterally. ABDOMEN: Mildly distended. Bowel sounds present no guarding or rebound EXTREMITIES: No cyanosis, clubbing edema +1 NEUROLOGIC: unable to assess Results/Medications Result Diagram: 01/03/17 0446 01/03/17 0530 Results 24 hrs Laboratory Tests Test 01/03/17 04:46 01/03/17 05:30 01/03/17 05:45 White Blood Count 12.6 H Red Blood Count 3.42 L Hemoglobin 9.6 L Hematocrit 31.8 L Mean Corpuscular Volume 93.0 Mean Corpuscular Hemoglobin 28.1 L Mean Corpuscular Hemoglobin Concent 30.2 L Red Cell Distribution Width 17.9 H Platelet Count 73 L Mean Platelet Volume 12.7 H Neutrophils % 69.0 Band Neutrophils % 17.0 H Lymphocytes % 4.0 L Monocytes % 4.0 Eosinophils % 6.0 Neutrophils # 8.7 H Lymphocytes # 0.5 L Monocytes # 0.5 Eosinophils # 0.8 H Platelet Estimate PLT APPEAR DECREASED Sodium Level 137 Potassium Level 4.9 Chloride Level 104 Carbon Dioxide Level 26 Anion Gap 12 Blood Urea Nitrogen 105 H Creatinine 1.55 H Glucose Level 139 Calcium Level 10.7 H Phosphorus Level 6.1 H Magnesium Level 2.4 Medications Current Medications Acetaminophen (Tylenol Tab) 650 mg Q6H PRN PEG PAIN LEVEL 1-3 OR FEVER Last administered on 12/27/16 09:47; Admin Dose 650 MG; Start 11/30/16 at 05:00 Morphine Sulfate (morphine) 2 mg Q4H PRN IV PAIN LEVEL 7-10 Last administered on 01/02/17 05:02; Admin Dose 2 MG; Start 11/30/16 at 05:00 Miscellaneous Information 1 ea NOTE XX ; Start 11/30/16 at 05:00 Glucose (Glutose) 15 gm Q15M PRN PO DECREASED GLUCOSE; Start 11/30/16 at 05:00 Glucose (Glutose) 22.5 gm Q15M PRN PO DECREASED GLUCOSE; Start 11/30/16 at 05: 00 Dextrose (D50w Syringe) 25 ml Q15M PRN IV DECREASED GLUCOSE; Start 11/30/16 at 05:00 Dextrose (D50w Syringe) 50 ml Q15M PRN IV DECREASED GLUCOSE; Start 11/30/16 at 05:00 Glucagon (Glucagen) 1 mg Q15M PRN IM DECREASED GLUCOSE; Start 11/30/16 at 05:00 Glucose (Glutose) 15 gm Q15M PRN BUCCAL DECREASED GLUCOSE; Start 11/30/16 at 05 :00 Metoprolol Tartrate (Lopressor) 2.5 mg Q2H PRN IV heart rate over 110 Last administered on 12/17/16 06:57; Admin Dose 2.5 MG; Start 12/01/16 at 12:00 Collagenase (Santyl) 1 applic DAILY TOP Last administered on 01/03/17 09:04; Admin Dose 1 APPLIC; Start 12/02/16 at 12:00 Collagenase (Santyl) 1 applic DAILY PRN TOP PER WOUND CARE ORDERS; Start at 11:30 Metoprolol Tartrate (Lopressor) 50 mg BID GTB Last administered on 01/02/17 20 :54; Admin Dose 50 MG; Start 12/04/16 at 21:00 Famotidine (Pepcid) 20 mg DAILY GTB Last administered on 01/03/17 09:03; Admin Dose 20 MG; Start 12/05/16 at 09:00 Hydralazine HCl (Apresoline) 10 mg Q6H PRN IV ELEVATED BLOOD PRESSURE Last administered on 12/13/16 18:26; Admin Dose 10 MG; Start 12/06/16 at 16:00 Ketoconazole (Nizoral Shampoo) 1 applic Q12 TOP Last administered on 01/03/17 09:04; Admin Dose 1 APPLIC; Start 12/14/16 at 21:00 Ketoconazole (Nizoral Cr) 1 applic BID TOP Last administered on 01/03/17 09:03 ; Admin Dose 1 APPLIC; Start 12/14/16 at 21:00 Fluconazole 100 mg 100 mg DAILY PO Last administered on 01/03/17 09:03; Admin Dose 100 MG; Start 12/20/16 at 13:30 Sodium Chloride 1,000 ml @ 75 mls/hr [id number] IV Last administered on 06:40; Admin Dose 75 MLS/HR; Start 01/01/17 at 14:30 Cefepime HCl (Maxipime 1gm/50 ml (Pmx)) 50 ml @ 100 mls/hr DAILY IVPB Last administered on 01/03/17 09:02; Admin Dose 100 MLS/HR; Start 01/01/17 at 16:00 Assessment/Plan Chief Complaint/Hosp Course Assessment 1. Acute on chronic hypoxemic respiratory failure on mechanical ventilation via tracheostomy 2. Improved leukocytosis 3. Mild dehydration 4. Anemia of chronic disease 5. History of CVA 6. Dysphagia with G-tube Plan 1. Continue mechanical ventilation 2. Continue broad-spectrum antibiotics polymicrobial sepsis with multi resistant organisms 3. Tube feeding as tolerated 4. Correction of electrolyte abnormalities 5. DVT GI prophylaxis Disposition Continue telemetry care Very poor prognosis Discussion with patient's and primary at bedside explained very poor prognosis and consideration for palliative care. We will meet with patient's daughter also. Problems: JOSEF HERRING MD, [facility] January 03, 2017 14:40
[2017-01-03] MEDS: COLISTIMETHATE (25 MG/ML INHAL SYG) NEB SCH ×2 (16:43→23:00)
--- NOTE | 2017-01-03 18:59 | CONS ---
Date/Time of Note Date/Time of Note DATE: 01/03/17 TIME: 18:57 Assessment/Plan Assessment/Plan Chief Complaint/Hosp Course SUBJECTIVE: Patient remains clinically unchanged, lethargic, no fevers. MICROBIOLOGY: Sputum culture on 12/27/2016 growing Pseudomonas aeruginosa and Serratia marcescens, susceptible to amikacin. Pseudomonas also susceptible to cefepime. INDWELLINGS: Trach, PEG, Cherry. ANTIMICROBIALS: 1. Amikacin. 2. Fluconazole. 3. Cefepime. PHYSICAL EXAMINATION: GENERAL: This is a cachectic, chronically ill-appearing, elderly man who is lethargic, in no distress. HEENT: Head atraumatic, normocephalic. Sclerae anicteric. Buccal mucosa dry. NECK: Supple. Tracheostomy present. CHEST: Rise symmetrical. Breath sounds diminished. HEART: S1, S2. ABDOMEN: Soft, bowel tones present. EXTREMITIES: Without cyanosis. ASSESSMENT: 1. Systemic inflammatory response syndrome with persistent leukocytosis. 2. Severe pneumonia with sputum culture growing multi-drug resistant organisms. 3. Acute renal failure==> worsening. 4. Anemia. 5. Coronary artery disease. 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 7. Sacral decubitus ulcer, healing. PLAN: Remains unchanged, will dc Amikacin 2 to worsening renal f-n, start Colistin INH, continue Cefepime, f/u pulmonary rec-s, prognosis poor DW Dr Rutherford Problems: Consultation Date/Type/Reason Admit Date/Time Nov 30, 2016 at 04:54 Initial Consult Date 12/01/16 Type of Consultation: ID Referring Provider: CHARLETTE RUTHERFORD Exam/Review of Systems Vital Signs Vitals Vital Signs Date Time Temp Pulse Resp B/P Pulse Ox O2 Delivery O2 Flow Rate FiO2 01/03/17 17:02 71 14 93 40 01/03/17 15:44 97.6 157/97 Intake and Output 01/02/17 01/02/17 01/03/17 15:00 23:00 07:00 Intake Total 1020 ml 1940 ml Output Total 950 ml 500 ml Balance 70 ml 1440 ml Results Result Diagram: 01/03/17 0446 01/03/17 0530 Results 24 hrs Laboratory Tests Test 01/03/17 04:46 01/03/17 05:30 01/03/17 05:45 White Blood Count 12.6 H Red Blood Count 3.42 L Hemoglobin 9.6 L Hematocrit 31.8 L Mean Corpuscular Volume 93.0 Mean Corpuscular Hemoglobin 28.1 L Mean Corpuscular Hemoglobin Concent 30.2 L Red Cell Distribution Width 17.9 H Platelet Count 73 L Mean Platelet Volume 12.7 H Neutrophils % 69.0 Band Neutrophils % 17.0 H Lymphocytes % 4.0 L Monocytes % 4.0 Eosinophils % 6.0 Neutrophils # 8.7 H Lymphocytes # 0.5 L Monocytes # 0.5 Eosinophils # 0.8 H Platelet Estimate PLT APPEAR DECREASED Sodium Level 137 Potassium Level 4.9 Chloride Level 104 Carbon Dioxide Level 26 Anion Gap 12 Blood Urea Nitrogen 105 H Creatinine 1.55 H Glucose Level 139 Calcium Level 10.7 H Phosphorus Level 6.1 H Magnesium Level 2.4 Medications Medications Current Medications Acetaminophen (Tylenol Tab) 650 mg Q6H PRN PEG PAIN LEVEL 1-3 OR FEVER Last administered on 12/27/16 09:47; Admin Dose 650 MG; Start 11/30/16 at 05:00 Morphine Sulfate (morphine) 2 mg Q4H PRN IV PAIN LEVEL 7-10 Last administered on 01/02/17 05:02; Admin Dose 2 MG; Start 11/30/16 at 05:00 Miscellaneous Information 1 ea NOTE XX ; Start 11/30/16 at 05:00 Glucose (Glutose) 15 gm Q15M PRN PO DECREASED GLUCOSE; Start 11/30/16 at 05:00 Glucose (Glutose) 22.5 gm Q15M PRN PO DECREASED GLUCOSE; Start 11/30/16 at 05: 00 Dextrose (D50w Syringe) 25 ml Q15M PRN IV DECREASED GLUCOSE; Start 11/30/16 at 05:00 Dextrose (D50w Syringe) 50 ml Q15M PRN IV DECREASED GLUCOSE; Start 11/30/16 at 05:00 Glucagon (Glucagen) 1 mg Q15M PRN IM DECREASED GLUCOSE; Start 11/30/16 at 05:00 Glucose (Glutose) 15 gm Q15M PRN BUCCAL DECREASED GLUCOSE; Start 11/30/16 at 05 :00 Metoprolol Tartrate (Lopressor) 2.5 mg Q2H PRN IV heart rate over 110 Last administered on 12/17/16 06:57; Admin Dose 2.5 MG; Start 12/01/16 at 12:00 Collagenase (Santyl) 1 applic DAILY TOP Last administered on 01/03/17 09:04; Admin Dose 1 APPLIC; Start 12/02/16 at 12:00 Collagenase (Santyl) 1 applic DAILY PRN TOP PER WOUND CARE ORDERS; Start at 11:30 Metoprolol Tartrate (Lopressor) 50 mg BID GTB Last administered on 01/02/17 20 :54; Admin Dose 50 MG; Start 12/04/16 at 21:00 Famotidine (Pepcid) 20 mg DAILY GTB Last administered on 01/03/17 09:03; Admin Dose 20 MG; Start 12/05/16 at 09:00 Hydralazine HCl (Apresoline) 10 mg Q6H PRN IV ELEVATED BLOOD PRESSURE Last administered on 12/13/16 18:26; Admin Dose 10 MG; Start 12/06/16 at 16:00 Ketoconazole (Nizoral Shampoo) 1 applic Q12 TOP Last administered on 01/03/17 09:04; Admin Dose 1 APPLIC; Start 12/14/16 at 21:00 Ketoconazole (Nizoral Cr) 1 applic BID TOP Last administered on 01/03/17 09:03 ; Admin Dose 1 APPLIC; Start 12/14/16 at 21:00 Fluconazole 100 mg 100 mg DAILY PO Last administered on 01/03/17 09:03; Admin Dose 100 MG; Start 12/20/16 at 13:30 Sodium Chloride 1,000 ml @ 75 mls/hr [id number] IV Last administered on 06:40; Admin Dose 75 MLS/HR; Start 01/01/17 at 14:30 Cefepime HCl (Maxipime 1gm/50 ml (Pmx)) 50 ml @ 100 mls/hr DAILY IVPB Last administered on 01/03/17 09:02; Admin Dose 100 MLS/HR; Start 01/01/17 at 16:00 ELI VALDEZ NP January 03, 2017 18:59
[2017-01-04] VITALS (23 sets, daily range): BP systolic 93–117; BP diastolic 52–61; PULSE 50–59; RESP 14–23
[2017-01-04 06:52] LABS: ADD SCAN DIFF NO
[2017-01-04 06:55] LABS: ABNORMAL IP MESSAGE 1; HEMATOCRIT 33.7 % (42.0-52.0); MEAN CORPUSCULAR HGB CONC 29.7 g/dl (32.0-37.0); MEAN CORPUSCULAR VOLUME 94.4 fl (82.0-101.0); MEAN PLATELET VOLUME 13.7 fl (7.4-10.4); PLATELET COUNT 65 10^3/UL (140-415); RED BLOOD COUNT 3.57 10^6/ul (4.70-6.10); WHITE BLOOD COUNT 10.3 10^3/ul (4.8-10.8)
[2017-01-04 07:20] LABS: CALCIUM 10.5 mg/dl (8.4-10.2); CREATININE 1.63 mg/dl (0.61-1.24); POTASSIUM 5.6 mmol/L (3.5-5.1)
[2017-01-04 07:22] LABS: MAGNESIUM 2.4 mg/dl (1.7-2.5); PHOSPHORUS 6.4 mg/dl (2.5-4.9)
[2017-01-04] MEDS: IPRATROPIUM (HFA) 12.9 GM INHALER INH SCH ×3 (07:26→21:50)
[2017-01-04] MEDS: LEVALBUTEROL (HFA) 15 GM INHALER INH SCH ×3 (07:27→21:50)
[2017-01-04] MEDS: FLUCONAZOLE 100 MG TAB PO SCH (08:54)
[2017-01-04] MEDS: FAMOTIDINE 20 MG TAB GTB SCH (08:54)
[2017-01-04] MEDS: CEFEPIME 1GM/50 ML (PMX) 50 ML IVPB SCH (08:54)
[2017-01-04] MEDS: METOPROLOL 25 MG TAB GTB SCH ×2 (08:54→21:00)
[2017-01-04] MEDS: COLLAGENASE 30 GM TUBE TOP SCH (08:56)
[2017-01-04] MEDS: KETOCONAZOLE 2% SHAMPOO 120 ML BTL TOP SCH ×2 (08:59→23:00)
[2017-01-04] MEDS: KETOCONAZOLE 2% 15 GM CR TOP SCH ×2 (08:59→22:59)
[2017-01-04] MEDS: COLISTIMETHATE (25 MG/ML INHAL SYG) NEB SCH ×2 (09:25→19:47)
--- NOTE | 2017-01-04 10:03 | PN ---
Date/Time of Note Date/Time of Note DATE: 01/04/17 TIME: 09:56 Assessment/Plan VTE Prophylaxis VTE Prophylaxis Intervention: LMWH Lines/Catheters IV Catheter Type (from Nrsg): PICC Line Central line still needed: Yes Urinary Cath still in place: Yes Reason Cath still needed: skin wounds contaminated by urine Assessment/Plan Assessment/Plan Bilat nosocomial PNA sepsis chronic resp failure,vent dependent ELPIDIO sacral decub DNR very poor prognosis cont current therapy no further escalation of therapy family conference on fri. Subjective 24 Hr Interval Summary Subjective hx not possible: pt non-verbal Exam/Review of Systems Vital Signs Vitals Vital Signs Date Time Temp Pulse Resp B/P Pulse Ox O2 Delivery O2 Flow Rate FiO2 01/04/17 09:08 54 01/04/17 07:47 98.0 18 112/52 99 01/04/17 07:20 40 Intake and Output 01/03/17 01/03/17 01/04/17 15:00 23:00 07:00 Intake Total 50 ml 1770 ml 1890 ml Output Total 200 ml 250 ml Balance 50 ml 1570 ml 1640 ml Exam Respiratory: crackles/rales, diminished breath sounds Cardiovascular: regular rate and rhythm Gastrointestinal: bowel sounds, soft Extremities: edema Results Result Diagram: 01/04/17 0540 01/04/17 0540 Results 24 hrs Laboratory Tests Test 01/04/17 05:40 White Blood Count 10.3 Red Blood Count 3.57 L Hemoglobin 10.0 L Hematocrit 33.7 L Mean Corpuscular Volume 94.4 Mean Corpuscular Hemoglobin 28.0 L Mean Corpuscular Hemoglobin Concent 29.7 L Red Cell Distribution Width 18.0 H Platelet Count 65 L Mean Platelet Volume 13.7 H Neutrophils % Lymphocytes % Monocytes % Eosinophils % Neutrophils # Lymphocytes # Monocytes # Eosinophils # Sodium Level 138 Potassium Level 5.6 H Chloride Level 105 Carbon Dioxide Level 27 Anion Gap 12 Blood Urea Nitrogen 108 H Creatinine 1.63 H Glucose Level 117 Calcium Level 10.5 H Phosphorus Level 6.4 H Magnesium Level 2.4 Medications Medications Current Medications Acetaminophen (Tylenol Tab) 650 mg Q6H PRN PEG PAIN LEVEL 1-3 OR FEVER Last administered on 12/27/16t 09:47; Admin Dose 650 MG; Start 11/30/16 at 05:00 Morphine Sulfate (morphine) 2 mg Q4H PRN IV PAIN LEVEL 7-10 Last administered on 01/02/17 05:02; Admin Dose 2 MG; Start 11/30/16 at 05:00 Miscellaneous Information 1 ea NOTE XX ; Start 11/30/16 at 05:00 Glucose (Glutose) 15 gm Q15M PRN PO DECREASED GLUCOSE; Start 11/30/16 at 05:00 Glucose (Glutose) 22.5 gm Q15M PRN PO DECREASED GLUCOSE; Start 11/30/16 at 05: 00 Dextrose (D50w Syringe) 25 ml Q15M PRN IV DECREASED GLUCOSE; Start 11/30/16 at 05:00 Dextrose (D50w Syringe) 50 ml Q15M PRN IV DECREASED GLUCOSE; Start 11/30/16 at 05:00 Glucagon (Glucagen) 1 mg Q15M PRN IM DECREASED GLUCOSE; Start 11/30/16 at 05:00 Glucose (Glutose) 15 gm Q15M PRN BUCCAL DECREASED GLUCOSE; Start 11/30/16 at 05 :00 Metoprolol Tartrate (Lopressor) 2.5 mg Q2H PRN IV heart rate over 110 Last administered on 12/17/16 06:57; Admin Dose 2.5 MG; Start 12/01/16 at 12:00 Collagenase (Santyl) 1 applic DAILY TOP Last administered on 01/04/17 08:56; Admin Dose 1 APPLIC; Start 12/02/16 at 12:00 Collagenase (Santyl) 1 applic DAILY PRN TOP PER WOUND CARE ORDERS; Start at 11:30 Metoprolol Tartrate (Lopressor) 50 mg BID GTB Last administered on 01/04/17 08 :54; Admin Dose 50 MG; Start 12/04/16 at 21:00 Famotidine (Pepcid) 20 mg DAILY GTB Last administered on 01/04/17 08:54; Admin Dose 20 MG; Start 12/05/16 at 09:00 Hydralazine HCl (Apresoline) 10 mg Q6H PRN IV ELEVATED BLOOD PRESSURE Last administered on 12/13/16 18:26; Admin Dose 10 MG; Start 12/06/16 at 16:00 Ketoconazole (Nizoral Shampoo) 1 applic Q12 TOP Last administered on 01/04/17 08:59; Admin Dose 1 APPLIC; Start 4/29/17 at 21:00 Ketoconazole (Nizoral Cr) 1 applic BID TOP Last administered on 01/04/17 08:59 ; Admin Dose 1 APPLIC; Start 12/14/16 at 21:00 Fluconazole 100 mg 100 mg DAILY PO Last administered on 01/04/17 08:54; Admin Dose 100 MG; Start 12/20/16 at 13:30 Sodium Chloride 1,000 ml @ 75 mls/hr [id number] IV Last administered on 21:15; Admin Dose 75 MLS/HR; Start 01/01/17 at 14:30 Cefepime HCl (Maxipime 1gm/50 ml (Pmx)) 50 ml @ 100 mls/hr DAILY IVPB Last administered on 01/04/17 08:54; Admin Dose 100 MLS/HR; Start 01/01/17 at 16:00 LAY CABRERA MD January 04, 2017 10:03
[2017-01-04 10:28] LABS: BASOPHIL # 0.1 10^3/ul (0.0-0.1); EOSINOPHILS # 0.4 10^3/ul (0.0-0.5); LYMPHOCYTES # 0.7 10^3/ul (0.8-2.9); MONOCYTE # 0.5 10^3/ul (0.3-0.9); NEUTROPHIL # 7.6 10^3/ul (1.6-7.5)
[2017-01-04 10:29] LABS: PLATELET ESTIMATE PLT APPEAR DECREASED
[2017-01-04] MEDS: SOD CHLORIDE 0.9% 1,000 ML IV SCH ×2 (12:17→23:00)
[2017-01-04] MEDS ORDERED: NA POLYST SULFON 15 GM/60 ML BTL GTB ONE (13:30)
--- NOTE | 2017-01-04 16:12 | CONS ---
Date/Time of Note Date/Time of Note DATE: 01/04/17 TIME: 16:08 Assessment/Plan Assessment/Plan Chief Complaint/Hosp Course ID PROGRESS NOTE TOTAL ABX DAY # => Cefepime + Colistin INH + Diflucan s/p Amikacin-> DC"d 2/2 worsening renal fx 24H INTERVAL SUMMARY * SUBJECTIVE: Patient remains clinically unchanged, lethargic, no fevers. * MICROBIOLOGY: Sputum culture on 12/27/2016 growing Pseudomonas aeruginosa and Serratia marcescens, susceptible to amikacin. Pseudomonas also susceptible to cefepime. * INDWELLINGS: Trach, PEG, Cherry. PHYSICAL EXAMINATION: GENERAL: Frail 81 yo elder M w/chronic debility on the Vent, VSS, NAD HEENT: Facial seborrheic dermatitis , missing teeth NECK: Supple, trach->clean stoma and secure to Vent CHEST: Equal chest rise bilaterally, (+)Dyspnea on the vent HEART: Pulse RRR ABDOMEN: Soft, benign., peg EXTREMITIES: Warm, dry, muscle atrophy, missing finger digits SKIN: Warm, dry ID ASSESSMENT: 81 yo M w/PMHx CVA w/right hemiplegia, dementia, dysphagia-PEG, VDRF, admitted with: 1. Systemic inflammatory response syndrome with low grade temperatures, leukocytosis * WBC rising w/low grade temps 2. Healthcare-associated pneumonia: * CT Thorax: Severe dense confluent multifocal consolidation scattered throughout the lungs consistent with widespread diffuse pneumonia. * Sputum (+)PSAR & (+)Serratia Marcescens 3. Right pleural effusion. 4. 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 GERD ?Gastroparesis? 7. BPH w/suspected urinary retention - indwelling FC 8. CKD 9. 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 QUERY: ?Early UTI w/trace leuk esterase, pyuria on UA 12/06/16 11. Facial seborrheic dermatitis => Will Rx Ketoconazole shampoo 12. LUEXT PICC = present on admission INVASIVES: * Trach, Peg, FC, PICC->11/30/17 ABX ALLERGIES: KNDA TOTAL ABX DAY # => Cefepime + Colistin INH + Diflucan s/p Amikacin-> DC"d 09/19 worsening renal fx Primaxin -> DC 12/09 s/p Zosyn in ED ID RECOMMENDATIONS: 1. CONTINUE CURRENT ABX over the weekend and observe . . . . Problems: Consultation Date/Type/Reason Admit Date/Time Nov 30, 2016 at 04:54 Initial Consult Date 12/01/16 Type of Consultation: ID Referring Provider: CHARLETTE RUTHERFORD Exam/Review of Systems Vital Signs Vitals Vital Signs Date Time Temp Pulse Resp B/P Pulse Ox O2 Delivery O2 Flow Rate FiO2 01/04/17 15:05 55 14 96 40 01/04/17 12:20 98.0 93/53 Intake and Output 01/03/17 01/03/17 01/04/17 15:00 23:00 07:00 Intake Total 50 ml 1770 ml 1890 ml Output Total 200 ml 250 ml Balance 50 ml 1570 ml 1640 ml Results Result Diagram: 01/04/17 0540 01/04/17 0540 Results 24 hrs Laboratory Tests Test 01/04/17 05:40 White Blood Count 10.3 Red Blood Count 3.57 L Hemoglobin 10.0 L Hematocrit 33.7 L Mean Corpuscular Volume 94.4 Mean Corpuscular Hemoglobin 28.0 L Mean Corpuscular Hemoglobin Concent 29.7 L Red Cell Distribution Width 18.0 H Platelet Count 65 L Mean Platelet Volume 13.7 H Neutrophils % 74.0 Band Neutrophils % 9.0 H Lymphocytes % 7.0 L Monocytes % 5.0 Eosinophils % 4.0 Basophils % 1.0 Neutrophils # 7.6 H Lymphocytes # 0.7 L Monocytes # 0.5 Eosinophils # 0.4 Basophils # 0.1 Platelet Estimate PLT APPEAR DECREASED Giant Platelets OCCASIONAL Sodium Level 138 Potassium Level 5.6 H Chloride Level 105 Carbon Dioxide Level 27 Anion Gap 12 Blood Urea Nitrogen 108 H Creatinine 1.63 H Glucose Level 117 Calcium Level 10.5 H Phosphorus Level 6.4 H Magnesium Level 2.4 Medications Medications Current Medications Acetaminophen (Tylenol Tab) 650 mg Q6H PRN PEG PAIN LEVEL 1-3 OR FEVER Last administered on 12/27/16t 09:47; Admin Dose 650 MG; Start 11/30/16 at 05:00 Morphine Sulfate (morphine) 2 mg Q4H PRN IV PAIN LEVEL 7-10 Last administered on 01/02/17 05:02; Admin Dose 2 MG; Start 11/30/16 at 05:00 Miscellaneous Information 1 ea NOTE XX ; Start 11/30/16 at 05:00 Glucose (Glutose) 15 gm Q15M PRN PO DECREASED GLUCOSE; Start 11/30/16 at 05:00 Glucose (Glutose) 22.5 gm Q15M PRN PO DECREASED GLUCOSE; Start 11/30/16 at 05: 00 Dextrose (D50w Syringe) 25 ml Q15M PRN IV DECREASED GLUCOSE; Start 11/30/16 at 05:00 Dextrose (D50w Syringe) 50 ml Q15M PRN IV DECREASED GLUCOSE; Start 11/30/16 at 05:00 Glucagon (Glucagen) 1 mg Q15M PRN IM DECREASED GLUCOSE; Start 11/30/16 at 05:00 Glucose (Glutose) 15 gm Q15M PRN BUCCAL DECREASED GLUCOSE; Start 11/30/16 at 05 :00 Metoprolol Tartrate (Lopressor) 2.5 mg Q2H PRN IV heart rate over 110 Last administered on 12/17/16 06:57; Admin Dose 2.5 MG; Start 12/01/16 at 12:00 Collagenase (Santyl) 1 applic DAILY TOP Last administered on 01/04/17 08:56; Admin Dose 1 APPLIC; Start 12/02/16 at 12:00 Collagenase (Santyl) 1 applic DAILY PRN TOP PER WOUND CARE ORDERS; Start at 11:30 Metoprolol Tartrate (Lopressor) 50 mg BID GTB Last administered on 01/04/17 08 :54; Admin Dose 50 MG; Start 12/04/16 at 21:00 Famotidine (Pepcid) 20 mg DAILY GTB Last administered on 01/04/17 08:54; Admin Dose 20 MG; Start 12/05/16 at 09:00 Hydralazine HCl (Apresoline) 10 mg Q6H PRN IV ELEVATED BLOOD PRESSURE Last administered on 12/13/16 18:26; Admin Dose 10 MG; Start 12/06/16 at 16:00 Ketoconazole (Nizoral Shampoo) 1 applic Q12 TOP Last administered on 01/04/17 08:59; Admin Dose 1 APPLIC; Start 12/14/16 at 21:00 Ketoconazole (Nizoral Cr) 1 applic BID TOP Last administered on 01/04/17 08:59 ; Admin Dose 1 APPLIC; Start 12/14/16 at 21:00 Fluconazole 100 mg 100 mg DAILY PO Last administered on 01/04/17 08:54; Admin Dose 100 MG; Start 12/20/16 at 13:30 Sodium Chloride 1,000 ml @ 75 mls/hr [id number] IV Last administered on 12:17; Admin Dose 75 MLS/HR; Start 01/01/17 at 14:30 Cefepime HCl (Maxipime 1gm/50 ml (Pmx)) 50 ml @ 100 mls/hr DAILY IVPB Last administered on 01/04/17 08:54; Admin Dose 100 MLS/HR; Start 01/01/17 at 16:00 OSEI BLACKWOOD NP January 04, 2017 16:12
--- NOTE | 2017-01-04 16:43 | CONS ---
Date/Time of Note Date/Time of Note DATE: 01/04/17 TIME: 16:41 Assessment/Plan Assessment/Plan Additional Assessment/Plan Ventilator setting; AC of 14, tidal volume 500, PEEP of 5, 30% FiO2. Assessment recommendations; 1. Patient admitted for right-sided pneumonia with extensive lung necrosis. 2. Quadriplegia, patient remains ventilator dependent. Continue current treatment. Prognosis is poor. Consultation Date/Type/Reason Admit Date/Time Nov 30, 2016 at 04:54 Initial Consult Date 12/01/16 Type of Consultation: Pulmonary Referring Provider: CHARLETTE RUTHERFORD 24 HR Interval Summary Free Text/Dictation Patient condition remains unchanged. Remains awake and responsive. Has remained hemodynamically stable. General exam; elderly male, on ventilator via tracheostomy currently in no distress. Exam/Review of Systems Vital Signs Vitals Vital Signs Date Time Temp Pulse Resp B/P Pulse Ox O2 Delivery O2 Flow Rate FiO2 01/04/17 16:31 55 01/04/17 16:08 98.0 18 94/ 98 01/04/17 15:05 40 Intake and Output 01/03/17 01/03/17 01/04/17 15:00 23:00 07:00 Intake Total 50 ml 1770 ml 1890 ml Output Total 200 ml 250 ml Balance 50 ml 1570 ml 1640 ml Exam H EENT exam; supple neck, tracheostomy in place. No thyromegaly. No neck masses. Patient is edentulous. Pupils are small bilaterally. Chest examined; diffuse crackles involving right lung. Left lung is fairly clear. S1-S2 audible, no murmurs. Abdomen examination; soft, G-tube in place. No organomegaly. Abdomen is nondistended. Extremity exam; no peripheral edema. WEIR FISHER exam is; patient stable quadriplegia. Results Result Diagram: 01/04/17 0540 01/04/17 0540 Results 24 hrs Laboratory Tests Test 01/04/17 05:40 White Blood Count 10.3 Red Blood Count 3.57 L Hemoglobin 10.0 L Hematocrit 33.7 L Mean Corpuscular Volume 94.4 Mean Corpuscular Hemoglobin 28.0 L Mean Corpuscular Hemoglobin Concent 29.7 L Red Cell Distribution Width 18.0 H Platelet Count 65 L Mean Platelet Volume 13.7 H Neutrophils % 74.0 Band Neutrophils % 9.0 H Lymphocytes % 7.0 L Monocytes % 5.0 Eosinophils % 4.0 Basophils % 1.0 Neutrophils # 7.6 H Lymphocytes # 0.7 L Monocytes # 0.5 Eosinophils # 0.4 Basophils # 0.1 Platelet Estimate PLT APPEAR DECREASED Giant Platelets OCCASIONAL Sodium Level 138 Potassium Level 5.6 H Chloride Level 105 Carbon Dioxide Level 27 Anion Gap 12 Blood Urea Nitrogen 108 H Creatinine 1.63 H Glucose Level 117 Calcium Level 10.5 H Phosphorus Level 6.4 H Magnesium Level 2.4 Medications Medications Current Medications Acetaminophen (Tylenol Tab) 650 mg Q6H PRN PEG PAIN LEVEL 1-3 OR FEVER Last administered on 12/27/16 09:47; Admin Dose 650 MG; Start 11/30/16 at 05:00 Morphine Sulfate (morphine) 2 mg Q4H PRN IV PAIN LEVEL 7-10 Last administered on 01/02/17 05:02; Admin Dose 2 MG; Start 11/30/16 at 05:00 Miscellaneous Information 1 ea NOTE XX ; Start 11/30/16 at 05:00 Glucose (Glutose) 15 gm Q15M PRN PO DECREASED GLUCOSE; Start 11/30/16 at 05:00 Glucose (Glutose) 22.5 gm Q15M PRN PO DECREASED GLUCOSE; Start 11/30/16 at 05: 00 Dextrose (D50w Syringe) 25 ml Q15M PRN IV DECREASED GLUCOSE; Start 11/30/16 at 05:00 Dextrose (D50w Syringe) 50 ml Q15M PRN IV DECREASED GLUCOSE; Start 11/30/16 at 05:00 Glucagon (Glucagen) 1 mg Q15M PRN IM DECREASED GLUCOSE; Start 11/30/16 at 05:00 Glucose (Glutose) 15 gm Q15M PRN BUCCAL DECREASED GLUCOSE; Start 11/30/16 at 05 :00 Metoprolol Tartrate (Lopressor) 2.5 mg Q2H PRN IV heart rate over 110 Last administered on 12/17/16 06:57; Admin Dose 2.5 MG; Start 12/01/16 at 12:00 Collagenase (Santyl) 1 applic DAILY TOP Last administered on 01/04/17 08:56; Admin Dose 1 APPLIC; Start 12/02/16 at 12:00 Collagenase (Santyl) 1 applic DAILY PRN TOP PER WOUND CARE ORDERS; Start at 11:30 Metoprolol Tartrate (Lopressor) 50 mg BID GTB Last administered on 01/04/17 08 :54; Admin Dose 50 MG; Start 12/04/16 at 21:00 Famotidine (Pepcid) 20 mg DAILY GTB Last administered on 01/04/17 08:54; Admin Dose 20 MG; Start 12/05/16 at 09:00 Hydralazine HCl (Apresoline) 10 mg Q6H PRN IV ELEVATED BLOOD PRESSURE Last administered on 12/13/16 18:26; Admin Dose 10 MG; Start 12/06/16 at 16:00 Ketoconazole (Nizoral Shampoo) 1 applic Q12 TOP Last administered on 01/04/17 08:59; Admin Dose 1 APPLIC; Start 12/14/16 at 21:00 Ketoconazole (Nizoral Cr) 1 applic BID TOP Last administered on 01/04/17 08:59 ; Admin Dose 1 APPLIC; Start 12/14/16 at 21:00 Fluconazole 100 mg 100 mg DAILY PO Last administered on 01/04/17 08:54; Admin Dose 100 MG; Start 12/20/16 at 13:30 Sodium Chloride 1,000 ml @ 75 mls/hr [id number] IV Last administered on 12:17; Admin Dose 75 MLS/HR; Start 01/01/17 at 14:30 Cefepime HCl (Maxipime 1gm/50 ml (Pmx)) 50 ml @ 100 mls/hr DAILY IVPB Last administered on 01/04/17 08:54; Admin Dose 100 MLS/HR; Start 01/01/17 at 16:00 MARIA ELENA COLLADO January 04, 2017 16:43
[2017-01-05] VITALS (24 sets, daily range): BP systolic 92–120; BP diastolic 50–79; PULSE 54–60; RESP 14–20
[2017-01-05] MEDS ORDERED: FUROSEMIDE 40 MG INJ IV STA (02:11)
[2017-01-05] MEDS: LEVALBUTEROL (HFA) 15 GM INHALER INH PRN (04:07)
[2017-01-05] MEDS: IPRATROPIUM (HFA) 12.9 GM INHALER INH PRN (04:07)
[2017-01-05] MEDS: LEVALBUTEROL (HFA) 15 GM INHALER INH SCH ×2 (07:24→16:08)
[2017-01-05] MEDS: IPRATROPIUM (HFA) 12.9 GM INHALER INH SCH ×2 (07:24→16:07)
[2017-01-05 08:06] LABS: ADD SCAN DIFF NO
--- NOTE | 2017-01-05 08:06 | PN ---
Date/Time of Note Date/Time of Note DATE: 01/05/17 TIME: 08:02 Assessment/Plan VTE Prophylaxis VTE Prophylaxis Intervention: LMWH Lines/Catheters IV Catheter Type (from Nrsg): PICC Line Central line still needed: Yes Urinary Cath still in place: Yes Reason Cath still needed: skin wounds contaminated by urine Assessment/Plan Assessment/Plan HCAP sepsis chronic resp failure fluid overload ARF very poor prognosis Cont current RX iv lasix as needed family meeting in [facility] Subjective 24 Hr Interval Summary Subjective hx not possible: pt non-verbal Exam/Review of Systems Vital Signs Vitals Vital Signs Date Time Temp Pulse Resp B/P Pulse Ox O2 Delivery O2 Flow Rate FiO2 01/05/17 07:51 98.5 59 18 94/54 98 01/05/17 05:54 40 Intake and Output 01/04/17 01/04/17 01/05/17 15:00 23:00 07:00 Intake Total 920 ml 615 ml Output Total 200 ml Balance 920 ml 415 ml Exam Constitutional: frail ENMT: mucosa pink and moist Neck: non-tender, supple Respiratory: crackles/rales Cardiovascular: regular rate and rhythm Gastrointestinal: bowel sounds, non-tender, soft Musculoskeletal: nl extremities to inspection Results Result Diagram: 01/04/1740 01/04/1740 Medications Medications Current Medications Acetaminophen (Tylenol Tab) 650 mg Q6H PRN PEG PAIN LEVEL 1-3 OR FEVER Last administered on 12/27/16 09:47; Admin Dose 650 MG; Start 11/30/16 at 05:00 Morphine Sulfate (morphine) 2 mg Q4H PRN IV PAIN LEVEL 7-10 Last administered on 01/02/17 05:02; Admin Dose 2 MG; Start 11/30/16 at 05:00 Miscellaneous Information 1 ea NOTE XX ; Start 11/30/16 at 05:00 Glucose (Glutose) 15 gm Q15M PRN PO DECREASED GLUCOSE; Start 11/30/16 at 05:00 Glucose (Glutose) 22.5 gm Q15M PRN PO DECREASED GLUCOSE; Start 11/30/16 at 05: 00 Dextrose (D50w Syringe) 25 ml Q15M PRN IV DECREASED GLUCOSE; Start 11/30/16 at 05:00 Dextrose (D50w Syringe) 50 ml Q15M PRN IV DECREASED GLUCOSE; Start 11/30/16 at 05:00 Glucagon (Glucagen) 1 mg Q15M PRN IM DECREASED GLUCOSE; Start 11/30/16 at 05:00 Glucose (Glutose) 15 gm Q15M PRN BUCCAL DECREASED GLUCOSE; Start 11/30/16 at 05 :00 Metoprolol Tartrate (Lopressor) 2.5 mg Q2H PRN IV heart rate over 110 Last administered on 12/17/16 06:57; Admin Dose 2.5 MG; Start 12/01/16 at 12:00 Collagenase (Santyl) 1 applic DAILY TOP Last administered on 01/04/17 08:56; Admin Dose 1 APPLIC; Start 12/02/16 at 12:00 Collagenase (Santyl) 1 applic DAILY PRN TOP PER WOUND CARE ORDERS; Start at 11:30 Metoprolol Tartrate (Lopressor) 50 mg BID GTB Last administered on 01/04/17 08 :54; Admin Dose 50 MG; Start 12/04/16 at 21:00 Famotidine (Pepcid) 20 mg DAILY GTB Last administered on 01/04/17 08:54; Admin Dose 20 MG; Start 12/05/16 at 09:00 Hydralazine HCl (Apresoline) 10 mg Q6H PRN IV ELEVATED BLOOD PRESSURE Last administered on 12/13/16 18:26; Admin Dose 10 MG; Start 12/06/16 at 16:00 Ketoconazole (Nizoral Shampoo) 1 applic Q12 TOP Last administered on 01/04/17 23:00; Admin Dose 1 APPLIC; Start 12/14/16 at 21:00 Ketoconazole (Nizoral Cr) 1 applic BID TOP Last administered on 01/04/17 22:59 ; Admin Dose 1 APPLIC; Start 12/14/16 at 21:00 Fluconazole 100 mg 100 mg DAILY PO Last administered on 01/04/17 08:54; Admin Dose 100 MG; Start 12/20/16 at 13:30 Sodium Chloride 1,000 ml @ 50 mls/hr Q20H IV Last administered on 01/04/17 23 :00; Admin Dose 75 MLS/HR; Start 01/01/17 at 14:30 Cefepime HCl (Maxipime 1gm/50 ml (Pmx)) 50 ml @ 100 mls/hr DAILY IVPB Last administered on 01/04/17t 08:54; Admin Dose 100 MLS/HR; Start 01/01/17 at 16:00 LAY CABRERA MD January 05, 2017 08:06
[2017-01-05 08:08] LABS: ABNORMAL IP MESSAGE 1; HEMATOCRIT 32.7 % (42.0-52.0); HEMOGLOBIN 9.8 g/dl (14.0-18.0); MEAN CORPUSCULAR HEMOGLOBIN 28.5 pg (29.0-33.0); MEAN CORPUSCULAR VOLUME 95.1 fl (82.0-101.0); MEAN PLATELET VOLUME 12.5 fl (7.4-10.4); PLATELET COUNT 57 10^3/UL (140-415); RED BLOOD COUNT 3.44 10^6/ul (4.70-6.10); RED CELL DISTRIBUTION WIDTH 18.1 % (11.5-14.5); WHITE BLOOD COUNT 9.9 10^3/ul (4.8-10.8)
[2017-01-05 08:36] LABS: ALBUMIN 2.1 g/dl (3.3-4.9)
[2017-01-05 08:37] LABS: POTASSIUM 5.4 mmol/L (3.5-5.1)
[2017-01-05 08:39] LABS: CREATININE 1.73 mg/dl (0.61-1.24)
[2017-01-05 08:40] LABS: ALBUMIN/GLOBULIN RATIO 0.42; CALCIUM 10.1 mg/dl (8.4-10.2); MAGNESIUM 2.4 mg/dl (1.7-2.5); PHOSPHORUS 6.8 mg/dl (2.5-4.9)
[2017-01-05] MEDS: METOPROLOL 25 MG TAB GTB SCH ×2 (08:47→22:03)
[2017-01-05] MEDS: CEFEPIME 1GM/50 ML (PMX) 50 ML IVPB SCH (08:48)
[2017-01-05] MEDS: KETOCONAZOLE 2% SHAMPOO 120 ML BTL TOP SCH ×2 (08:48→21:00)
[2017-01-05] MEDS: FLUCONAZOLE 100 MG TAB PO SCH (08:48)
[2017-01-05] MEDS: FAMOTIDINE 20 MG TAB GTB SCH (08:48)
[2017-01-05] MEDS: KETOCONAZOLE 2% 15 GM CR TOP SCH ×2 (08:49→22:04)
[2017-01-05] MEDS: COLLAGENASE 30 GM TUBE TOP SCH (08:49)
[2017-01-05] MEDS: SOD CHLORIDE 0.9% 1,000 ML IV SCH (08:50)
[2017-01-05] MEDS: COLISTIMETHATE (25 MG/ML INHAL SYG) NEB SCH ×2 (09:05→22:06)
[2017-01-05 10:58] LABS: EOSINOPHILS # 0.4 10^3/ul (0.0-0.5); LYMPHOCYTES # 0.2 10^3/ul (0.8-2.9); MONOCYTE # 0.6 10^3/ul (0.3-0.9); NEUTROPHIL # 7.8 10^3/ul (1.6-7.5)
--- NOTE | 2017-01-05 12:15 | CONS ---
Date/Time of Note Date/Time of Note DATE: 01/05/17 TIME: 12:13 Assessment/Plan Assessment/Plan Additional Assessment/Plan Ventilator settings; AC of 14, tidal volume 500, PEEP of 5, 30% FiO2. Assessment recommendations; 1. Patient admitted for severe necrotizing right-sided pneumonia without any significant interval improvement based upon serial chest x-rays. 2. Chronic respiratory failure due to quadriplegia. Continue current treatment. Prognosis is poor. Consultation Date/Type/Reason Admit Date/Time Nov 30, 2016 at 04:54 Initial Consult Date 12/01/16 Type of Consultation: Pulmonary Referring Provider: CHARLETTE RUTHERFORD 24 HR Interval Summary Free Text/Dictation Patient condition remains stable. Remains awake. Has remained hemodynamically stable. Julio; elderly male, currently in no distress, on ventilator via tracheostomy. Exam/Review of Systems Vital Signs Vitals Vital Signs Date Time Temp Pulse Resp B/P Pulse Ox O2 Delivery O2 Flow Rate FiO2 01/05/17 11:40 98.6 70 18 92/50 93 01/05/17 11:00 40 Intake and Output 01/04/17 01/04/17 01/05/17 15:00 23:00 07:00 Intake Total 920 ml 615 ml Output Total 200 ml Balance 920 ml 415 ml Exam HEENT exam; supple neck, no JVD. No lymphadenopathy. Midline trachea. No thyromegaly. Tracheostomy in place. Patient is edentulous. Chest examination; diffuse crackles involving the right lung. Left lung is fairly clear. S1-S2 audible, no murmurs. Abdomen examination; soft, G-tube in place. No organomegaly. Bowel sounds audible. Extremity examination November no peripheral edema. CROCHET BEADER examination; patient is stable quadriplegia. Results Result Diagram: 01/05/17 0620 01/05/17 0620 Results 24 hrs Laboratory Tests Test 01/05/17 06:20 White Blood Count 9.9 Red Blood Count 3.44 L Hemoglobin 9.8 L Hematocrit 32.7 L Mean Corpuscular Volume 95.1 Mean Corpuscular Hemoglobin 28.5 L Mean Corpuscular Hemoglobin Concent 30.0 L Red Cell Distribution Width 18.1 H Platelet Count 57 L Mean Platelet Volume 12.5 H Neutrophils % 79.0 H Band Neutrophils % 9.0 H Lymphocytes % 2.0 L Monocytes % 6.0 Eosinophils % 4.0 Nucleated Red Blood Cells % 1.0 H Neutrophils # 7.8 H Lymphocytes # 0.2 L Monocytes # 0.6 Eosinophils # 0.4 Differential Comment MANUAL DIFF Large Platelets OCCASIONAL Sodium Level 139 Potassium Level 5.4 H Chloride Level 102 Carbon Dioxide Level 27 Anion Gap 15 Blood Urea Nitrogen 114 H Creatinine 1.73 H Glucose Level 90 Calcium Level 10.1 Phosphorus Level 6.8 H Magnesium Level 2.4 Total Bilirubin 0.0 L Direct Bilirubin 0.00 Indirect Bilirubin 0.0 Aspartate Amino Transf (AST/SGOT) 48 H Alanine Aminotransferase (ALT/SGPT) 37 Alkaline Phosphatase 233 H Total Protein 7.0 Albumin 2.1 L Globulin 4.90 H Albumin/Globulin Ratio 0.42 Medications Medications Current Medications Acetaminophen (Tylenol Tab) 650 mg Q6H PRN PEG PAIN LEVEL 1-3 OR FEVER Last administered on 12/27/16 09:47; Admin Dose 650 MG; Start 11/30/16 at 05:00 Morphine Sulfate (morphine) 2 mg Q4H PRN IV PAIN LEVEL 7-10 Last administered on 01/02/17 05:02; Admin Dose 2 MG; Start 11/30/16 at 05:00 Miscellaneous Information 1 ea NOTE XX ; Start 11/30/16 at 05:00 Glucose (Glutose) 15 gm Q15M PRN PO DECREASED GLUCOSE; Start 11/30/16 at 05:00 Glucose (Glutose) 22.5 gm Q15M PRN PO DECREASED GLUCOSE; Start 11/30/16 at 05: 00 Dextrose (D50w Syringe) 25 ml Q15M PRN IV DECREASED GLUCOSE; Start 11/30/16 at 05:00 Dextrose (D50w Syringe) 50 ml Q15M PRN IV DECREASED GLUCOSE; Start 11/30/16 at 05:00 Glucagon (Glucagen) 1 mg Q15M PRN IM DECREASED GLUCOSE; Start 11/30/16 at 05:00 Glucose (Glutose) 15 gm Q15M PRN BUCCAL DECREASED GLUCOSE; Start 11/30/16 at 05 :00 Metoprolol Tartrate (Lopressor) 2.5 mg Q2H PRN IV heart rate over 110 Last administered on 12/17/16 06:57; Admin Dose 2.5 MG; Start 12/01/16 at 12:00 Collagenase (Santyl) 1 applic DAILY TOP Last administered on 01/05/17 08:49; Admin Dose 1 APPLIC; Start 12/02/16 at 12:00 Collagenase (Santyl) 1 applic DAILY PRN TOP PER WOUND CARE ORDERS; Start at 11:30 Metoprolol Tartrate (Lopressor) 50 mg BID GTB Last administered on 01/04/17 08 :54; Admin Dose 50 MG; Start 12/04/16 at 21:00 Famotidine (Pepcid) 20 mg DAILY GTB Last administered on 01/05/17 08:48; Admin Dose 20 MG; Start 12/05/16 at 09:00 Hydralazine HCl (Apresoline) 10 mg Q6H PRN IV ELEVATED BLOOD PRESSURE Last administered on 12/13/16 18:26; Admin Dose 10 MG; Start 12/06/16 at 16:00 Ketoconazole (Nizoral Shampoo) 1 applic Q12 TOP Last administered on 01/05/17 08:48; Admin Dose 1 APPLIC; Start 12/14/16 at 21:00 Ketoconazole (Nizoral Cr) 1 applic BID TOP Last administered on 01/05/17 08:49 ; Admin Dose 1 APPLIC; Start 12/14/16 at 21:00 Fluconazole 100 mg 100 mg DAILY PO Last administered on 01/05/17 08:48; Admin Dose 100 MG; Start 12/20/16 at 13:30 Sodium Chloride 1,000 ml @ 50 mls/hr Q20H IV Last administered on 01/05/17 08 :50; Admin Dose 50 MLS/HR; Start 01/01/17 at 14:30 Cefepime HCl (Maxipime 1gm/50 ml (Pmx)) 50 ml @ 100 mls/hr DAILY IVPB Last administered on 01/05/17 08:48; Admin Dose 100 MLS/HR; Start 01/01/17 at 16:00 MARIA ELENA COLLADO January 05, 2017 12:15
[2017-01-05] MEDS ORDERED: NA POLYST SULFON 15 GM/60 ML BTL GTB ONE (14:00)
--- NOTE | 2017-01-05 14:15 | CONS ---
Date/Time of Note Date/Time of Note DATE: 01/05/17 TIME: 14:11 Assessment/Plan Assessment/Plan Chief Complaint/Hosp Course ID PROGRESS NOTE TOTAL ABX DAY # => Cefepime + Colistin INH + Diflucan s/p Amikacin-> DC"d 2/2 worsening renal fx 24H INTERVAL SUMMARY * Non-communicative, VDRF, lethargic, cachetic, no fevers == worsening renal fx w/elevated K+ today, decreased urine output. * Necrotic HCAP -> persisting despite lengthy course of multiple ABX courses. * MICROBIOLOGY: Sputum culture on 12/27/2016 growing Pseudomonas aeruginosa and Serratia marcescens, susceptible to amikacin. Pseudomonas also susceptible to cefepime. * INDWELLINGS: Trach, PEG, Cherry. PHYSICAL EXAMINATION: GENERAL: Frail 81 yo elder M w/chronic debility on the Vent, VSS, NAD HEENT: Facial seborrheic dermatitis , missing teeth NECK: Supple, trach->clean stoma and secure to Vent CHEST: Equal chest rise bilaterally, (+)Dyspnea on the vent HEART: Pulse RRR ABDOMEN: Soft, benign., peg EXTREMITIES: Warm, dry, muscle atrophy, missing finger digits SKIN: Warm, dry ID ASSESSMENT: 81 yo M w/PMHx CVA w/right hemiplegia, dementia, dysphagia-PEG, VDRF, admitted with: 1. Systemic inflammatory response syndrome with low grade temperatures, leukocytosis * WBC rising w/low grade temps 2. Healthcare-associated pneumonia: * CT Thorax: Severe dense confluent multifocal consolidation scattered throughout the lungs consistent with widespread diffuse pneumonia. * Sputum (+)PSAR & (+)Serratia Marcescens 3. Right pleural effusion. 4. 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 GERD ?Gastroparesis? 7. BPH w/suspected urinary retention - indwelling FC 8. CKD 9. 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 QUERY: ?Early UTI w/trace leuk esterase, pyuria on UA 12/06/16 11. Facial seborrheic dermatitis => Will Rx Ketoconazole shampoo 12. LUEXT PICC = present on admission INVASIVES: * Trach, Peg, FC, PICC->11/30/17 ABX ALLERGIES: KNDA TOTAL ABX DAY # => Cefepime + Colistin INH + Diflucan s/p Amikacin-> DC"d 2/ worsening renal fx Primaxin -> DC 12/09 s/p Zosyn in ED ID RECOMMENDATIONS: 1. CONTINUE CURRENT ABX over the weekend and observe 2. Poor long-term prognosis - necrotic PNA persisting despite multiple courses of ABX . . . . . Problems: Consultation Date/Type/Reason Admit Date/Time Nov 30, 2016 at 04:54 Initial Consult Date 12/01/16 Type of Consultation: ID Referring Provider: CHARLETTE RUTHERFORD Exam/Review of Systems Vital Signs Vitals Vital Signs Date Time Temp Pulse Resp B/P Pulse Ox O2 Delivery O2 Flow Rate FiO2 01/05/17 13:00 55 14 94 40 01/05/17 11:40 98.6 92/50 Intake and Output 01/04/17 01/04/17 01/05/17 15:00 23:00 07:00 Intake Total 920 ml 615 ml Output Total 200 ml Balance 920 ml 415 ml Results Result Diagram: 01/05/1720 01/05/17 0620 Results 24 hrs Laboratory Tests Test 01/05/17 06:20 White Blood Count 9.9 Red Blood Count 3.44 L Hemoglobin 9.8 L Hematocrit 32.7 L Mean Corpuscular Volume 95.1 Mean Corpuscular Hemoglobin 28.5 L Mean Corpuscular Hemoglobin Concent 30.0 L Red Cell Distribution Width 18.1 H Platelet Count 57 L Mean Platelet Volume 12.5 H Neutrophils % 79.0 H Band Neutrophils % 9.0 H Lymphocytes % 2.0 L Monocytes % 6.0 Eosinophils % 4.0 Nucleated Red Blood Cells % 1.0 H Neutrophils # 7.8 H Lymphocytes # 0.2 L Monocytes # 0.6 Eosinophils # 0.4 Differential Comment MANUAL DIFF Large Platelets OCCASIONAL Sodium Level 139 Potassium Level 5.4 H Chloride Level 102 Carbon Dioxide Level 27 Anion Gap 15 Blood Urea Nitrogen 114 H Creatinine 1.73 H Glucose Level 90 Calcium Level 10.1 Phosphorus Level 6.8 H Magnesium Level 2.4 Total Bilirubin 0.0 L Direct Bilirubin 0.00 Indirect Bilirubin 0.0 Aspartate Amino Transf (AST/SGOT) 48 H Alanine Aminotransferase (ALT/SGPT) 37 Alkaline Phosphatase 233 H Total Protein 7.0 Albumin 2.1 L Globulin 4.90 H Albumin/Globulin Ratio 0.42 Medications Medications Current Medications Acetaminophen (Tylenol Tab) 650 mg Q6H PRN PEG PAIN LEVEL 1-3 OR FEVER Last administered on 12/27/16 09:47; Admin Dose 650 MG; Start 11/30/16 at 05:00 Morphine Sulfate (morphine) 2 mg Q4H PRN IV PAIN LEVEL 7-10 Last administered on 01/02/17 05:02; Admin Dose 2 MG; Start 11/30/16 at 05:00 Miscellaneous Information 1 ea NOTE XX ; Start 11/30/16 at 05:00 Glucose (Glutose) 15 gm Q15M PRN PO DECREASED GLUCOSE; Start 11/30/16 at 05:00 Glucose (Glutose) 22.5 gm Q15M PRN PO DECREASED GLUCOSE; Start 11/30/16 at 05: 00 Dextrose (D50w Syringe) 25 ml Q15M PRN IV DECREASED GLUCOSE; Start 11/30/16 at 05:00 Dextrose (D50w Syringe) 50 ml Q15M PRN IV DECREASED GLUCOSE; Start 11/30/16 at 05:00 Glucagon (Glucagen) 1 mg Q15M PRN IM DECREASED GLUCOSE; Start 11/30/16 at 05:00 Glucose (Glutose) 15 gm Q15M PRN BUCCAL DECREASED GLUCOSE; Start 11/30/16 at 05 :00 Metoprolol Tartrate (Lopressor) 2.5 mg Q2H PRN IV heart rate over 110 Last administered on 12/17/16 06:57; Admin Dose 2.5 MG; Start 12/01/16 at 12:00 Collagenase (Santyl) 1 applic DAILY TOP Last administered on 01/05/17 08:49; Admin Dose 1 APPLIC; Start 12/02/16 at 12:00 Collagenase (Santyl) 1 applic DAILY PRN TOP PER WOUND CARE ORDERS; Start at 11:30 Metoprolol Tartrate (Lopressor) 50 mg BID GTB Last administered on 01/04/17 08 :54; Admin Dose 50 MG; Start 12/04/16 at 21:00 Famotidine (Pepcid) 20 mg DAILY GTB Last administered on 01/05/17 08:48; Admin Dose 20 MG; Start 12/05/16 at 09:00 Hydralazine HCl (Apresoline) 10 mg Q6H PRN IV ELEVATED BLOOD PRESSURE Last administered on 12/13/16 18:26; Admin Dose 10 MG; Start 12/06/16 at 16:00 Ketoconazole (Nizoral Shampoo) 1 applic Q12 TOP Last administered on 01/05/17 08:48; Admin Dose 1 APPLIC; Start 12/14/16 at 21:00 Ketoconazole (Nizoral Cr) 1 applic BID TOP Last administered on 01/05/17 08:49 ; Admin Dose 1 APPLIC; Start 12/14/16 at 21:00 Fluconazole 100 mg 100 mg DAILY PO Last administered on 01/05/17 08:48; Admin Dose 100 MG; Start 12/20/16 at 13:30 Sodium Chloride 1,000 ml @ 50 mls/hr Q20H IV Last administered on 01/05/17 08 :50; Admin Dose 50 MLS/HR; Start 01/01/17 at 14:30 Cefepime HCl (Maxipime 1gm/50 ml (Pmx)) 50 ml @ 100 mls/hr DAILY IVPB Last administered on 01/05/17 08:48; Admin Dose 100 MLS/HR; Start 01/01/17 at 16:00 OSEI BLACKWOOD NP January 05, 2017 14:15
[2017-01-05] MEDS ORDERED: FUROSEMIDE 40 MG INJ IV ONE (22:30)
[2017-01-06] VITALS (15 sets, daily range): BP systolic 57–90; BP diastolic 34–52; PULSE 45–54; RESP 20–24
[2017-01-06 01:53] LABS: AADO2 Arterial 164.6 mmHg (7.0-24.0); Allen Test ACCEPTAB; Arterial Base Excess -5.7 mmol/L (-3.0-3); Arterial COHb 0.3 % (0.0-3.0); Arterial Fraction of Oxyhgb 92.3 % (93.0-99.0); Arterial HCO3 26.3 mmol/L (22.0-26.0); Arterial MetHb 0.2 % (0.0-1.5); Arterial Total Hemglobin 11.9 g/dl (12.0-18.0); Blood Gas PS 34; MODE VENT - PC
--- NOTE | 2017-01-06 02:06 | RADRPT ---
PROCEDURE: Portable chest x-ray. CLINICAL INDICATION: Respiratory distress. TECHNIQUE: Portable AP view of the chest. COMPARISON: Chest x-ray dated 12/30/2016, chest CT dated 12/26/2016. FINDINGS: There is a tracheostomy tube in place. A left upper extremity PICC terminates at the superior cavoat rial junction. Prominent interstitial lung markings are not significantly changed. There is also no significant change in extensive right mid and lower lung airspace opacities. The cardiac silhouette is magnified. There may be a right pleural effusion. There is no pneumothorax. IMPRESSION: 1. Prominent interstitial lung markings, not significantly changed. These are nonspecific but could represent interstitial edema, a viral chest infection, a neoplastic process, and/or chronic lung ch anges. 2. Airspace opacity in the right middle lower lung, not significantly changed. This is also nonspe cific and could represent pneumonia and/or neoplasm. 3. Possible right pleural effusion. RPTAT: HTAR .Hilario Lee MD, MD Date Time Electronically viewed and signed by .Hilario Lee MD, MD on 01/06/2017 02:06 .R/
[2017-01-06] MEDS: LEVALBUTEROL (HFA) 15 GM INHALER INH SCH ×2 (02:41→07:29)
[2017-01-06] MEDS: IPRATROPIUM (HFA) 12.9 GM INHALER INH SCH ×2 (02:41→07:28)
[2017-01-06] MEDS: METOPROLOL 25 MG TAB GTB SCH (09:00)
[2017-01-06] MEDS: KETOCONAZOLE 2% SHAMPOO 120 ML BTL TOP SCH (09:00)
[2017-01-06] MEDS: COLLAGENASE 30 GM TUBE TOP SCH (09:00)
[2017-01-06] MEDS: FAMOTIDINE 20 MG TAB GTB SCH (09:41)
[2017-01-06] MEDS: CEFEPIME 1GM/50 ML (PMX) 50 ML IVPB SCH (09:41)
[2017-01-06] MEDS: FLUCONAZOLE 100 MG TAB PO SCH (09:41)
[2017-01-06] MEDS: KETOCONAZOLE 2% 15 GM CR TOP SCH (09:42)
[2017-01-06] MEDS: SOD CHLORIDE 0.9% 1,000 ML IV SCH (10:03)
--- NOTE | 2017-01-06 11:31 | CONS ---
Date/Time of Note Date/Time of Note DATE: 01/06/17 TIME: 11:29 Consult Date/Type/Reason Admit Date/Time Nov 30, 2016 at 04:54 Initial Consult Date 12/01/16 Type of Consultation: Pulmonary Ordering Provider: CHARLETTE RUTHERFORD Subjective Patient unresponsive on mechanical ventilation this morning Increased oxygen requirements Family present at bedside Objective Vital Signs Date Time Temp Pulse Resp B/P Pulse Ox O2 Delivery O2 Flow Rate FiO2 01/06/17 09:40 54 24 99 80 01/06/17 07:25 97.5 68/40 Intake and Output 01/05/17 01/05/17 01/06/17 15:00 23:00 07:00 Intake Total 870 ml Output Total 50 ml 50 ml Balance 820 ml -50 ml Exam PHYSICAL EXAMINATION GENERAL: Elderly gentleman, intubated on mechanical ventilation, opens eyes and appears somewhat agitated. Orally intubated. VITAL SIGNS: see below. HEENT: Pupils equal, round, and reactive to light. Tracheostomy site clean and intact. CARDIAC: S1, S2, 1/6 systolic ejection murmur CHEST: Diminished air entry bilaterally. ABDOMEN: Mildly distended. Bowel sounds present no guarding or rebound EXTREMITIES: No cyanosis, clubbing edema +1 NEUROLOGIC: Generalized weakness Results/Medications Result Diagram: 01/05/1720 01/05/1720 Results 24 hrs Laboratory Tests Test 01/06/17 01:32 Blood Gas Specimen Source Blood arterial Arterial Blood Date Drawn 01/06/2017 1:40:34 AM Arterial Blood pH (Temp corrected) 7.060 *L Arterial Blood pCO2 (Temp correct) 95.2 *H Arterial Blood pO2 (Temp corrected) 84.8 Arterial Blood HCO3 26.3 H Arterial Blood Base Excess -5.7 L Arterial Blood Oxygen Saturation 92.8 L Russell Test ACCEPTAB Arterial Blood Gas Puncture Site Right Radial Arterial Blood Carboxyhemoglobin 0.3 Arterial Blood Methemoglobin 0.2 Blood Gas A-a O2 Differential 164.6 H Oxyhemoglobin Percent 92.3 L Total Hemoglobin 11.9 L Blood Gas Temperature 37.0 Blood Gas Respiration Rate 14.0 Blood Gas Actual Respiration Rate 14 Blood Gas Modality VENT - PC FiO2 50.0 Blood Gas Low PEEP Setting 5.0 Blood Gas Pressure Support 34 Blood Gas Critical Value Read Back CARA COON Blood Gas Notified Whom Blood Gas Notified Time 01/06/2017 1:50:44 AM Medications Current Medications Acetaminophen (Tylenol Tab) 650 mg Q6H PRN PEG PAIN LEVEL 1-3 OR FEVER Last administered on 12/27/16 09:47; Admin Dose 650 MG; Start 11/30/16 at 05:00 Morphine Sulfate (morphine) 2 mg Q4H PRN IV PAIN LEVEL 7-10 Last administered on 01/02/17 05:02; Admin Dose 2 MG; Start 11/30/16 at 05:00 Miscellaneous Information 1 ea NOTE XX ; Start 11/30/16 at 05:00 Glucose (Glutose) 15 gm Q15M PRN PO DECREASED GLUCOSE; Start 11/30/16 at 05:00 Glucose (Glutose) 22.5 gm Q15M PRN PO DECREASED GLUCOSE; Start 11/30/16 at 05: 00 Dextrose (D50w Syringe) 25 ml Q15M PRN IV DECREASED GLUCOSE; Start 11/30/16 at 05:00 Dextrose (D50w Syringe) 50 ml Q15M PRN IV DECREASED GLUCOSE; Start 11/30/16 at 05:00 Glucagon (Glucagen) 1 mg Q15M PRN IM DECREASED GLUCOSE; Start 11/30/16 at 05:00 Glucose (Glutose) 15 gm Q15M PRN BUCCAL DECREASED GLUCOSE; Start 11/30/16 at 05 :00 Metoprolol Tartrate (Lopressor) 2.5 mg Q2H PRN IV heart rate over 110 Last administered on 12/17/16 06:57; Admin Dose 2.5 MG; Start 12/01/16 at 12:00 Collagenase (Santyl) 1 applic DAILY TOP Last administered on 01/05/17 08:49; Admin Dose 1 APPLIC; Start 12/02/16 at 12:00 Collagenase (Santyl) 1 applic DAILY PRN TOP PER WOUND CARE ORDERS; Start at 11:30 Metoprolol Tartrate (Lopressor) 50 mg BID GTB Last administered on 01/05/17 22 :03; Admin Dose 50 MG; Start 12/04/16 at 21:00 Famotidine (Pepcid) 20 mg DAILY GTB Last administered on 01/06/17 09:41; Admin Dose 20 MG; Start 12/05/16 at 09:00 Hydralazine HCl (Apresoline) 10 mg Q6H PRN IV ELEVATED BLOOD PRESSURE Last administered on 12/13/16 18:26; Admin Dose 10 MG; Start 12/06/16 at 16:00 Ketoconazole (Nizoral Shampoo) 1 applic Q12 TOP Last administered on 01/05/17 21:00; Admin Dose 1 APPLIC; Start 12/14/16 at 21:00 Ketoconazole (Nizoral Cr) 1 applic BID TOP Last administered on 01/06/17 09:42 ; Admin Dose 1 APPLIC; Start 12/14/16 at 21:00 Fluconazole 100 mg 100 mg DAILY PO Last administered on 01/06/17 09:41; Admin Dose 100 MG; Start 12/20/16 at 13:30 Sodium Chloride 1,000 ml @ 50 mls/hr Q20H IV Last administered on 01/05/17 08 :50; Admin Dose 50 MLS/HR; Start 01/01/17 at 14:30 Cefepime HCl (Maxipime 1gm/50 ml (Pmx)) 50 ml @ 100 mls/hr DAILY IVPB Last administered on 01/06/17 09:41; Admin Dose 100 MLS/HR; Start 01/01/17 at 16:00 Assessment/Plan Chief Complaint/Hosp Course Assessment 1. Acute on chronic hypoxemic respiratory failure on mechanical ventilation via tracheostomy, necrotizing pneumonia worsening hypoxemia 2. Improved leukocytosis 3. Mild dehydration 4. Anemia of chronic disease 5. History of CVA 6. Dysphagia with G-tube 7. Acute renal failure likely secondary to ATN injury. Plan 1. Continue mechanical ventilation increase O2 as tolerated 2. Continue broad-spectrum antibiotics polymicrobial sepsis with multi resistant organisms 3. Tube feeding as tolerated 4. Correction of electrolyte abnormalities 5. DVT GI prophylaxis Disposition Continue telemetry care Very poor prognosis I had a long discussion with the patient's and daughter at bedside. Prognosis is very poor. Family discussed comfort care which I think is entirely appropriate. Problems: JOSEF HERRING MD, [facility] January 06, 2017 11:31
--- NOTE | 2017-01-06 11:37 | PN ---
Date/Time of Note Date/Time of Note DATE: 01/06/17 TIME: 11:25 Assessment/Plan VTE Prophylaxis VTE Prophylaxis Intervention: SCD's Lines/Catheters IV Catheter Type (from Nrsg): PICC Line Central line still needed: Yes (for IV access ) Urinary Cath still in place: Yes Reason Cath still needed: other (indicate) (Renla failure ) Assessment/Plan Assessment/Plan 81 yo man with: 1. Sepsis, Bilateral Pneumonia, HCAP vs VAP, CT chest and also confirmed on WBC scan with severe bilateral PNA. Sputum cx polymicrobial with MDRO pseudomonas and Providencia. Worsening respiratory failure over the weekend with again issues with leaking trach Worsening renal failure, now anuric even with Diuretics Discussed with and Daughter and will proceed with comfort care and withdrawal of care later today once family says their goodbyes D/c all abx and TF. 2. Chronic vent-dependent respiratory failure, stable on Vent, oxygenating well on FiO2 80% currently with worsening respiratory and renal failure . With also extensive b/l PNA, large amount of secretions, Off vanco since yesterday due to ELPIDIO Comfort and withdrawal of care later on today 3. Acute kidney injury,now ful on anuric renal failure Comfort care 4. Severe anemia on admission, possible GI bleeding, but if so resolved now. Continue PPI. S/p 2 units pRBC yesterday, Hb up to 9.3 and stable so far . Comfort care as of today 5. Thrombocytopenia: comfort care 6. Elevated troponins in setting of a fib with RVR and sepsis, CAD In SR currently and HR controlled with Bblocker, up to 50 mg po bid. Comfort care 7. MRSA nares: s/p Bactroban. 8. Sacral Decub, seems to be healing well per RN and wound care but cx polymicrobial with MDRO. Comfort care 9. Hypertension: Continue Metoprolol at 50 mg po bid and off Losartan with ELPIDIO . Comfort care Prophylaxis: SCDs and Famotidine. Disposition: On contact isolation and Telemetry. WBC scan confirming PNA as only current source of active infection, per ID continue current abx and aggressive pulmonary toilet. Monitor renal function . Discussed with and Daughter at bedside, current clinical status keeps worsening and now with renal and respiratory failure, dismal prognosis. They are agreeable to comfort measures and and later on today will proceed with terminal wean off the vent with Morphine gtt on board Patient has been DNR already Subjective 24 Hr Interval Summary Free Text/Dictation Patient mostly unresponsive and now in anuric renal failure and worsening respiratory failure Dr De Jesus and myself had a discussion with patient's and daughter at bedside, agreeable with Comfort care and once all family members say their goodbyes will proceed with terminal extubation off vent with Morphine gtt in place Exam/Review of Systems Vital Signs Vitals Vital Signs Date Time Temp Pulse Resp B/P Pulse Ox O2 Delivery O2 Flow Rate FiO2 01/06/17 09:40 54 24 99 80 01/06/17 07:25 97.5 68/40 Intake and Output 01/05/17 01/05/17 01/06/17 15:00 23:00 07:00 Intake Total 870 ml Output Total 50 ml 50 ml Balance 820 ml -50 ml Exam Constitutional: frail, non-verbal, other (barely responsive ) Respiratory: diminished breath sounds (bilaterally ) Cardiovascular: nl pulses, regular rate and rhythm Gastrointestinal: soft Musculoskeletal: other (anasarca ) Extremities: normal pulses, other (anasarca) Neurological: lethargic, unresponsive (mostly ) Results Result Diagram: 01/05/1720 01/05/17 0620 Results 24 hrs Laboratory Tests Test 01/06/17 01:32 Blood Gas Specimen Source Blood arterial Arterial Blood Date Drawn 01/06/2017 1:40:34 AM Arterial Blood pH (Temp corrected) 7.060 *L Arterial Blood pCO2 (Temp correct) 95.2 *H Arterial Blood pO2 (Temp corrected) 84.8 Arterial Blood HCO3 26.3 H Arterial Blood Base Excess -5.7 L Arterial Blood Oxygen Saturation 92.8 L Russell Test ACCEPTAB Arterial Blood Gas Puncture Site Right Radial Arterial Blood Carboxyhemoglobin 0.3 Arterial Blood Methemoglobin 0.2 Blood Gas A-a O2 Differential 164.6 H Oxyhemoglobin Percent 92.3 L Total Hemoglobin 11.9 L Blood Gas Temperature 37.0 Blood Gas Respiration Rate 14.0 Blood Gas Actual Respiration Rate 14 Blood Gas Modality VENT - PC FiO2 50.0 Blood Gas Low PEEP Setting 5.0 Blood Gas Pressure Support 34 Blood Gas Critical Value Read Back CARA COON Blood Gas Notified Whom Blood Gas Notified Time 01/06/2017 1:50:44 AM Medications Medications Current Medications Acetaminophen (Tylenol Tab) 650 mg Q6H PRN PEG PAIN LEVEL 1-3 OR FEVER Last administered on 12/27/16 09:47; Admin Dose 650 MG; Start 11/30/16 at 05:00 Morphine Sulfate (morphine) 2 mg Q4H PRN IV PAIN LEVEL 7-10 Last administered on 01/02/17 05:02; Admin Dose 2 MG; Start 11/30/16 at 05:00 Miscellaneous Information 1 ea NOTE XX ; Start 11/30/16 at 05:00 Glucose (Glutose) 15 gm Q15M PRN PO DECREASED GLUCOSE; Start 11/30/16 at 05:00 Glucose (Glutose) 22.5 gm Q15M PRN PO DECREASED GLUCOSE; Start 11/30/16 at 05: 00 Dextrose (D50w Syringe) 25 ml Q15M PRN IV DECREASED GLUCOSE; Start 11/30/16 at 05:00 Dextrose (D50w Syringe) 50 ml Q15M PRN IV DECREASED GLUCOSE; Start 11/30/16 at 05:00 Glucagon (Glucagen) 1 mg Q15M PRN IM DECREASED GLUCOSE; Start 11/30/16 at 05:00 Glucose (Glutose) 15 gm Q15M PRN BUCCAL DECREASED GLUCOSE; Start 11/30/16 at 05 :00 Metoprolol Tartrate (Lopressor) 2.5 mg Q2H PRN IV heart rate over 110 Last administered on 12/17/16 06:57; Admin Dose 2.5 MG; Start 12/01/16 at 12:00 Collagenase (Santyl) 1 applic DAILY TOP Last administered on 01/05/17 08:49; Admin Dose 1 APPLIC; Start 12/02/16 at 12:00 Collagenase (Santyl) 1 applic DAILY PRN TOP PER WOUND CARE ORDERS; Start at 11:30 Metoprolol Tartrate (Lopressor) 50 mg BID GTB Last administered on 01/05/17 22 :03; Admin Dose 50 MG; Start 12/04/16 at 21:00 Famotidine (Pepcid) 20 mg DAILY GTB Last administered on 01/06/17 09:41; Admin Dose 20 MG; Start 12/05/16 at 09:00 Hydralazine HCl (Apresoline) 10 mg Q6H PRN IV ELEVATED BLOOD PRESSURE Last administered on 12/13/16 18:26; Admin Dose 10 MG; Start 12/06/16 at 16:00 Ketoconazole (Nizoral Shampoo) 1 applic Q12 TOP Last administered on 01/05/17 21:00; Admin Dose 1 APPLIC; Start 12/14/16 at 21:00 Ketoconazole (Nizoral Cr) 1 applic BID TOP Last administered on 01/06/17 09:42 ; Admin Dose 1 APPLIC; Start 12/14/16 at 21:00 Fluconazole 100 mg 100 mg DAILY PO Last administered on 01/06/17 09:41; Admin Dose 100 MG; Start 12/20/16 at 13:30 Sodium Chloride 1,000 ml @ 50 mls/hr Q20H IV Last administered on 01/05/17 08 :50; Admin Dose 50 MLS/HR; Start 01/01/17 at 14:30 Cefepime HCl (Maxipime 1gm/50 ml (Pmx)) 50 ml @ 100 mls/hr DAILY IVPB Last administered on 01/06/17 09:41; Admin Dose 100 MLS/HR; Start 01/01/17 at 16:00 CHARLETTE RUTHERFORD January 06, 2017 11:37
[2017-01-06] MEDS ORDERED: LORAZEPAM 2 MG INJ IV PRN (12:00)
[2017-01-06] MEDS ORDERED: ARTIFICIAL TEARS 15 ML OPH BOTH EYES PRN (12:00)
[2017-01-06] MEDS ORDERED: morphine (DRIP) 100 MG/100 ML 100 ML IV SCH (12:00)
[2017-01-06] MEDS ORDERED: DIMETHICONE STICK TOP PRN (12:00)
--- NOTE | 2017-01-06 12:36 | CONS ---
Date/Time of Note Date/Time of Note DATE: 01/06/17 TIME: 12:32 Assessment/Plan Assessment/Plan Chief Complaint/Hosp Course SUBJECTIVE: Patient remains clinically unchanged, anuric, +track leak, no fevers. MICROBIOLOGY: Sputum culture on 12/27/2016 growing Pseudomonas aeruginosa and Serratia marcescens, susceptible to amikacin. Pseudomonas also susceptible to cefepime. INDWELLINGS: Trach, PEG, Cherry. ANTIMICROBIALS: 1. Colistin. 2. Fluconazole. 3. Cefepime. PHYSICAL EXAMINATION: GENERAL: This is a cachectic, chronically ill-appearing, elderly man who is lethargic, in no distress. HEENT: Head atraumatic, normocephalic. Sclerae anicteric. Buccal mucosa dry. NECK: Supple. Tracheostomy present. CHEST: Rise symmetrical. Breath sounds diminished. HEART: S1, S2. ABDOMEN: Soft, bowel tones present. EXTREMITIES: Without cyanosis. ASSESSMENT: 1. Sepsis with MSOF 2. Severe pneumonia with sputum culture growing multi-drug resistant organisms. 3. Acute renal failure==> worsening. 4. Anemia. 5. Coronary artery disease. 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 7. Sacral decubitus ulcer. PLAN: Doing poorly, family to decide re final plan of care DW Dr Rutherford Problems: Consultation Date/Type/Reason Admit Date/Time Nov 30, 2016 at 04:54 Initial Consult Date 12/01/16 Type of Consultation: id Referring Provider: CHARLETTE RUTHERFORD Exam/Review of Systems Vital Signs Vitals Vital Signs Date Time Temp Pulse Resp B/P Pulse Ox O2 Delivery O2 Flow Rate FiO2 01/06/17 12:04 45 01/06/17 11:58 24 98 80 01/06/17 11:35 97.8 72/42 Intake and Output 01/05/17 01/05/17 01/06/17 15:00 23:00 07:00 Intake Total 870 ml Output Total 50 ml 50 ml Balance 820 ml -50 ml Results Result Diagram: 01/05/17 0620 01/05/17 0620 Results 24 hrs Laboratory Tests Test 01/06/17 01:32 Blood Gas Specimen Source Blood arterial Arterial Blood Date Drawn 01/06/2017 1:40:34 AM Arterial Blood pH (Temp corrected) 7.060 *L Arterial Blood pCO2 (Temp correct) 95.2 *H Arterial Blood pO2 (Temp corrected) 84.8 Arterial Blood HCO3 26.3 H Arterial Blood Base Excess -5.7 L Arterial Blood Oxygen Saturation 92.8 L Russell Test ACCEPTAB Arterial Blood Gas Puncture Site Right Radial Arterial Blood Carboxyhemoglobin 0.3 Arterial Blood Methemoglobin 0.2 Blood Gas A-a O2 Differential 164.6 H Oxyhemoglobin Percent 92.3 L Total Hemoglobin 11.9 L Blood Gas Temperature 37.0 Blood Gas Respiration Rate 14.0 Blood Gas Actual Respiration Rate 14 Blood Gas Modality VENT - PC FiO2 50.0 Blood Gas Low PEEP Setting 5.0 Blood Gas Pressure Support 34 Blood Gas Critical Value Read Back CARA COON Blood Gas Notified Whom Blood Gas Notified Time 01/06/2017 1:50:44 AM Medications Medications Current Medications Morphine Sulfate 2 mg 2 mg Q4H PRN IV PAIN LEVEL 7-10 Last administered on 01/02t 05:02; Admin Dose 2 MG; Start 11/30/16 at 05:00 Morphine Sulfate/ Sodium Chloride (morphine) 100 ml @ 1 mls/hr TITRATE IV ; Start 01/06/17 at 12:00 Lorazepam (Ativan) 1 mg Q4H PRN IV ANXIETY/SEIZURES; Start 01/06/17 at 12:00 Eye Lubricant (Artificial Tears Oph) 2 drop Q12H PRN BOTH EYES DRY EYES; Start 01/06/17 at 12:00 ELI VALDEZ NP January 06, 2017 12:36
--- NOTE | 2017-01-06 14:00 | QN ---
Documentation Comment Patient was noted to be in asystole at 13 13, I was notified at 21, patient has been comfort measures awaiting terminal wean this AM pending additional family members to come over Patient pronounced at 13 50 when he found in asystole on the monitor Still on Vent but no heart sounds perceivable, pupils fixed and dilated, unresponsive to voice or noxious stimuli including sternal rub Family notified patient has and RT notified also to terminally extubate/disconnect from Vent CHARLETTE RUTHERFORD January 06, 2017 14:00
--- NOTE | 2017-01-07 14:11 | RADRPT ---
Vent Rate: 53 bpm RR Interval: 0 msec MS Interval: 210 msec QRS Duration: 68 msec QT Interval: 480 msec QTC Interval: 450 msec P-R-T [place]: 45 - 71 - 20 degrees Sinus bradycardia with 1st degree AV block Low voltage QRS Borderline ECG Electronically Signed By: Chucho Tierney [id number]
== END 2017-01-06 15:28 | disposition expired | DRG 870 ==
LOC: E/R 00:14 → ICU 04:54 → TEL 12-02 13:42
PROVIDERS: ADMIT Internal Medicine; ATTEND Internal Medicine
PROC: 5A1955Z Respiratory Ventilation, Greater than 96 Consecutive Hours (ICD-10-PCS; principal; 2016-11-30)
PROC: 30253N1 (ICD-10-PCS; 2016-11-30)
PROC: 02HV33Z Insertion of Infusion Device into Superior Vena Cava, Percutaneous Approach (ICD-10-PCS; 2016-11-30)
PROC: 0B21XFZ Change Tracheostomy Device in Trachea, External Approach (ICD-10-PCS; 2016-11-30)
DX: A41.9 Sepsis, unspecified organism (principal); J69.0 Pneumonitis due to inhalation of food and vomit; J90 Pleural effusion, not elsewhere classified; J15.1 Pneumonia due to Pseudomonas; J15.8 Pneumonia due to other specified bacteria; J96.10 Chronic respiratory failure, unspecified whether with hypoxia or hypercapnia; N17.9 Acute kidney failure, unspecified; L89.153 Pressure ulcer of sacral region, stage 3; J95.851 Ventilator associated pneumonia; K92.2 Gastrointestinal hemorrhage, unspecified; I47.1 Supraventricular tachycardia; I48.92 Unspecified atrial flutter; E87.1 Hypo-osmolality and hyponatremia; R29.1 Meningismus; I69.951 Hemiplegia and hemiparesis following unspecified cerebrovascular disease affecting right dominant side; J95.03 Malfunction of tracheostomy stoma; Z93.0 Tracheostomy status; Z87.891 Personal history of nicotine dependence; Z99.81 Dependence on supplemental oxygen; E87.6 Hypokalemia; E83.42 Hypomagnesemia; N40.0 Benign prostatic hyperplasia without lower urinary tract symptoms; K21.9 Gastro-esophageal reflux disease without esophagitis; Z66 Do not resuscitate; R00.0 Tachycardia, unspecified; I25.10 Atherosclerotic heart disease of native coronary artery without angina pectoris; Z93.1 Gastrostomy status; M54.2 Cervicalgia; Z22.322 Carrier or suspected carrier of Methicillin resistant Staphylococcus aureus; E11.9 Type 2 diabetes mellitus without complications; D64.9 Anemia, unspecified; I12.9 Hypertensive chronic kidney disease with stage 1 through stage 4 chronic kidney disease, or unspecified chronic kidney disease; N18.9 Chronic kidney disease, unspecified; M48.10 Ankylosing hyperostosis [Forestier], site unspecified; L89.610 Pressure ulcer of right heel, unstageable; L89.510 Pressure ulcer of right ankle, unstageable; I46.9 Cardiac arrest, cause unspecified; B96.1 Klebsiella pneumoniae [K. pneumoniae] as the cause of diseases classified elsewhere; B96.4 Proteus (mirabilis) (morganii) as the cause of diseases classified elsewhere; B95.2 Enterococcus as the cause of diseases classified elsewhere
CPT/HCPCS: 36415; 36430; 36569; 36600; 70491; 71010; 71250; 71260; 74000; 76937; 78806; 80048; 80053; 80150; 80202; 81001; 81003; 82550; 82553; 82607; 82728; 82746; 82803; 82962; 83036; 83540; 83605; 83735; 84100; 84145; 84155; 84300; 84443; 84484; 84560; 85025; 85049; 85362; 85378; 85384; 85610; 85670; 85730; 86644; 86850; 86900; 86901; 86920; 87040; 87070; 87075; 87081; 87086; 89190; 89220; 93005; 93306; 94002; 94003; 94640; 96365; 96366; 96367; 96375; J1940; A9570; J0153; J0278; J0360; J0692; J0713; J0743; J1200; J2270; J2543; J3370; J3475; J3480; J7030; J7040; J7050; P9016; Q9967